=== PATIENT | female | born 1965 | race Caucasian/White ===

== ENCOUNTER 2020-01-11 14:51 | Outpatient (REF) | payer OTHER, SELFPAY ==
[2020-01-11 16:47] LABS: Hematocrit 41.3 % (37-47); Mean Corpuscular HGB Conc 31.5 g/dl (31.0-35.0); Mean Corpuscular Hemoglobin 32.7 pg (27.0-33.0); Mean Platelet Volume 10.3 fL (9.4-12.3); Platelet Count 251 X10*3/uL (160-400); Red Blood Count 3.97 X10*6/uL (4.20-5.50); White Blood Count 5.6 X10*3/uL (4.8-10.8)
[2020-01-11 17:09] LABS: Alanine Aminotransferase 46 U/L (0-31); Albumin Level 4.3 g/dL (3.5-5.0); Alkaline Phosphatase 98 U/L (39-117); Anion Gap 14 (12-20); Aspartate Amino Transferase 43 U/L (5-31); Bilirubin Total 0.5 mg/dL (0.0-1.0); Blood Urea Nitrogen 18 mg/dL (9-16); Calcium 8.6 mg/dL (8.4-10.2); Carbon Dioxide 24 mmol/L (22-29); Chloride 108 mmol/L (96-108); Cholesterol 181 mg/dL; Estimated Glomerular Filt Rate > 60; Glucose Fasting 77 mg/dL (60-99); HDL Cholesterol 77 mg/dL; LDL Cholesterol Calculated 90 mg/dl; Potassium 4.3 mmol/l (3.3-5.1); Sodium 142 mmol/L (135-145); Total Protein 7.1 g/dL (6.5-8.0); Triglycerides 72 mg/dL
[2020-01-11 17:30] LABS: Vitamin D 25-OH Total 36.6 ng/mL (>30)
[2020-01-11 17:42] LABS: Folate 19.3 ng/mL (> or = 4.0); Vitamin B12 375 pg/mL (200-900)
== END 2020-01-11 14:52 | disposition home or self-care (01) ==
LOC: HO.HMGCLDS 14:51
PROVIDERS: PCP Internal Medicine; Visit Provider Internal Medicine
DX: E53.8 Deficiency of other specified B group vitamins (principal); E55.9 Vitamin D deficiency, unspecified; I10 Essential (primary) hypertension; K21.9 Gastro-esophageal reflux disease without esophagitis
CPT/HCPCS: 36415; 80053; 80061; 82306; 82607; 82746; 85027

== ENCOUNTER 2020-03-01 09:49 | Outpatient (REF) | payer OTHER, SELFPAY ==
[2020-03-01 11:49] LABS: Anion Gap 13 (12-20); Blood Urea Nitrogen 16 mg/dL (9-16); Calcium 9.2 mg/dL (8.4-10.2); Carbon Dioxide 26 mmol/L (22-29); Chloride 111 mmol/L (96-108); Estimated Glomerular Filt Rate > 60; Glucose Random 73 mg/dL (60-115); Potassium 4.5 mmol/l (3.3-5.1); Sodium 145 mmol/L (135-145)
== END 2020-03-01 09:50 | disposition home or self-care (01) ==
LOC: HO.HMGCLDS 09:49
PROVIDERS: PCP Internal Medicine; Visit Provider Nurse Practitioner Family
DX: R10.9 Unspecified abdominal pain (principal)
CPT/HCPCS: 36415; 80048

== ENCOUNTER → 2020-03-07 14:21 | Outpatient (BNVA) | payer OTHER, SELFPAY | PROVIDERS: PCP Internal Medicine; Visit Provider Internal Medicine | DX: J45.909 Unspecified asthma, uncomplicated (principal); Z87.891 Personal history of nicotine dependence | CPT/HCPCS: 99212 ==

== ENCOUNTER 2020-03-08 09:28 | Outpatient (REF) | payer OTHER, SELFPAY ==
--- NOTE | 2020-03-08 09:30 | CT_ITS ---
EXAMINATION: CT ABDOMEN WITH CONTRAST CLINICAL INFORMATION: Abdominal pain COMPARISON: CT abdomen and pelvis 11/01/2015 TECHNIQUE: Contiguous axial thin section helical images of the abdomen were performed following the administration of oral contrast and 85 mL of Omnipaque 350 intravenous contrast. The data set was reformatted in the coronal and sagittal planes and reviewed on an independent workstation. This CT examination was performed using dose optimization techniques as appropriate, variously including the following: *Automated exposure control *Adjustment of mA and/or kV according to patient size (this includes techniques or standardized protocols for targeted exams where dose is matched to indication/reason for exam; i.e. extremities or head) *Use of iterative reconstruction technique DLP: 286 mGy-cm FINDINGS: LUNG BASES: The lung bases are clear. The heart size is normal. LIVER, GALLBLADDER, AND BILIARY TREE: The liver is normal size, shape and density. No focal lesion or intrahepatic ductal dilatation seen. PANCREAS: The pancreas is homogeneous in density and normal size. SPLEEN: The spleen is normal size and density. A small accessory splenule is seen posterior to the hilum. ADRENAL GLANDS AND KIDNEYS: Bilateral adrenal glands are symmetrical and normal. Both kidney nephrograms are normal size and shape. There is a focal cortical thinning at the junction of mid and lower poles of right kidney. There are no radiopaque renal calculi or hydronephrosis seen. There is a 1.1 cm cyst, upper pole right kidney BOWEL LOOPS: There is scattered moderate stool and gas seen throughout the colon without significant distention. The small bowel loops are normal caliber. The stomach is nondistended and appears unremarkable. The appendix is not included in the [id number]. LYMPH NODES: Normal. VASCULAR: Unremarkable. BONES: There is no lytic or sclerotic process seen. Mild ventral spondylosis seen in the lower dorsal spine. CT/CT abdomen w con IMPRESSION: 1. No acute process seen. 2. No radiopaque urolith or hydronephrosis. There is right mid to lower pole lateral cortex cortical thinning from previous insults. It is unchanged to 11/01/2015. 3. Moderate constipation.
[2020-03-08] MEDS: iohexoL 350 MG/ML 100 ML INFUS..BTL IV (10:23)
== END 2020-03-08 09:29 | disposition home or self-care (01) ==
LOC: HO.CT 09:28
PROVIDERS: Visit Provider Hospitalist
DX: R10.9 Unspecified abdominal pain (principal)
CPT/HCPCS: 74160; Q9967

== ENCOUNTER 2020-05-24 08:32 | Outpatient (REF) | payer OTHER, SELFPAY ==
--- NOTE | ~2020-05-24 | XR_ITS ---
EXAMINATION: XR SHOULDER, LEFT CLINICAL INFORMATION: Pain COMPARISON: None TECHNIQUE: Three views of the left shoulder. FINDINGS: Bone alignment is normal. No acute fracture or dislocation is seen. The glenohumeral joint is normal. There is mild arthritis at the acromioclavicular joint. There is an old left third rib fracture. XR/XR shoulder LT min 2V IMPRESSION: Mild arthritis at the acromioclavicular joint.
== END 2020-05-24 08:33 | disposition home or self-care (01) ==
LOC: HO.HOSX 08:32
PROVIDERS: Visit Provider Orthopaedic Surgery
DX: M75.42 Impingement syndrome of left shoulder (principal)
CPT/HCPCS: 20610; 73030; 99202; J1040

== ENCOUNTER 2020-06-07 07:56 | Outpatient (REF) | payer OTHER, SELFPAY | END 2020-06-07 07:57 | disposition home or self-care (01) | LOC: HO.HOSX 07:56 | PROVIDERS: Visit Provider Orthopaedic Surgery | DX: Z13.89 Encounter for screening for other disorder (principal) ==

== ENCOUNTER 2020-06-14 07:53 | Outpatient (REF) | payer OTHER, SELFPAY ==
--- NOTE | ~2020-06-14 | XR_ITS ---
EXAMINATION: XR HIP, RIGHT CLINICAL INFORMATION: Pain right hip. COMPARISON: Right hip 05/05/2018. TECHNIQUE: 2 views of the right hip. AP pelvis 1 view. FINDINGS: AP Pelvis: There is mild reduction in bilateral hip joint space. The SI joints are symmetrical. No visible fracture or bony abnormality seen. No soft tissue abnormality seen. Right Hip: There is no visible acute fracture, dislocation or joint effusion. There is mild reduction right hip joint space. The soft tissues are normal. XR/XR hip RT w PEL1V IMPRESSION: Minimal reduction in bilateral hip joint space without any bony erosive changes. Especially in right hip joint, there is no acute fracture, bony erosive changes or loose bodies. The SI joints are symmetrical and normal.
== END 2020-06-14 07:54 | disposition home or self-care (01) ==
LOC: HO.HOSX 07:53
PROVIDERS: Visit Provider Orthopaedic Surgery
DX: M25.561 Pain in right knee (principal)
CPT/HCPCS: 73502; 99202

== ENCOUNTER → 2020-07-13 15:57 | Outpatient (BNVA) | payer OTHER, SELFPAY | PROVIDERS: PCP Internal Medicine; Visit Provider Nurse Practitioner Family | DX: M47.816 Spondylosis without myelopathy or radiculopathy, lumbar region (principal); M54.2 Cervicalgia; M53.3 Sacrococcygeal disorders, not elsewhere classified | CPT/HCPCS: 99202 ==

== ENCOUNTER → 2020-08-02 10:51 | Outpatient (BNVA) | payer OTHER, SELFPAY | PROVIDERS: Visit Provider Nurse Practitioner Family | DX: M47.816 Spondylosis without myelopathy or radiculopathy, lumbar region (principal); M54.2 Cervicalgia; M53.3 Sacrococcygeal disorders, not elsewhere classified | CPT/HCPCS: 99212 ==

== ENCOUNTER 2020-10-03 13:00 | Outpatient (RCR) | payer OTHER, SELFPAY ==
[2020-08-12 14:22] VITALS: BP 119/74
--- NOTE | 2020-08-12 15:27 | MHC.PT.EP ---
[facility] [place] [facility] [place] [facility] [place] [facility] [address] [place] [address] [phone] F: [phone] F: [phone] F: [phone] F: [phone] Physical Therapy Plan of Care Date of Evaluation: Date of Surgery: N/A Diagnosis: Lumbar spondylosis without myelopathy or radiculopathy Assessment: Annie is a 54 y.o. female referred to PT for lumbar spondylosis without myelopathy or radiculopathy . On PT examination she presents with 4/10 pain, TTP L2-L4 spinous processes, decreased lumbar ROM, decreased TrA activation, decreased hip strength B, decreased knee strength B, gait deviation, and postural abnormalities. She would benefit from skilled PT for the aforementioned impairments to improve her tolerance for ADLs and work-related tasks such as standing for long periods of time, walking, stair negotiation, and impaired activity tolerance. She has a fair rehabilitation potential due to her apparent lack of motivation for PT and past medical history. Frequency and Duration: The patient will be seen 2x week for 3 weeks Short Term Goals: 1. In 2 weeks patient will report increased lumbar ROM in all planes to improve her ability for dressing and self care. Structures Mechanic Goals: 1. In 3 weeks patient will report less than 2-3/10 pain with standing for greater than 30 minutes to improve her ability to return to work. 2. In 3 weeks patient will be independent with [facility] for symptom management following d/c. Treatment Plan: Modalities to reduce pain, spasms and effusion. Manual therapy to restore motion and function. Therapeutic exercise to improve strength and flexibility. Neuromuscular re-education for posture and balance. Therapeutic activities to return to functional activities of daily living. Electronically signed by: Maria Dolores Aguilar PT, DPT Please sign and return to therapist. Thank you for your referral.
--- NOTE | 2020-11-08 11:43 | MHC.PT.DC ---
[facility] [place] Office [place] [facility] [place] [facility] [address] [place] [address] [facility] [phone] F: [phone] F: [phone] F: [phone] F: [phone] Physical Therapy Discharge Report Diagnosis: Lumbar spondylosis without myelopathy or radiculopathy Date of Surgery: N/A Date of Evaluation: 08/12/20 Date of Discharge: 11/08/20 Treatments to Date: 4 Cancellations to Date: 5 No Shows to Date: 0 Discharge Status: Visit Non-compliance Discharge Summary: Pt did not f/u with further visits and is d/c secondary to visit noncompliance. Electronically signed by: Tabatha Dobbs PT Please sign and return to therapist. Thank you for your referral.
== END 2020-11-08 11:43 | disposition home or self-care (01) ==
LOC: HO.PTCHIC 13:00
PROVIDERS: Visit Provider Anesthesiology
DX: M47.816 Spondylosis without myelopathy or radiculopathy, lumbar region (principal)
CPT/HCPCS: 97110; 97161

== ENCOUNTER 2021-01-30 10:06 | Outpatient (REF) | payer OTHER, SELFPAY ==
[2021-01-30 11:40] LABS: Hematocrit 45.9 % (37.0-47.0); Hemoglobin 14.8 g/dl (12.0-16.0); Mean Corpuscular HGB Conc 32.2 g/dl (31.0-35.0); Mean Corpuscular Hemoglobin 32.9 pg (27.0-33.0); Mean Platelet Volume 10.4 fL (9.4-12.3); Platelet Count 260 X10*3/uL (160-400); Red Cell Distribution Width 12.1 % (11.0-16.0); White Blood Count 7.2 X10*3/uL (4.8-10.8)
[2021-01-30 12:12] LABS: Alanine Aminotransferase 12 U/L (0-31); Albumin Level 3.9 g/dL (3.5-5.0); Alkaline Phosphatase 111 U/L (39-117); Anion Gap 9 (12-20); Aspartate Amino Transferase 14 U/L (5-31); Bilirubin Total 0.4 mg/dL (0.0-1.0); Blood Urea Nitrogen 12 mg/dL (9-16); Calcium 9.4 mg/dL (8.4-10.2); Carbon Dioxide 27 mmol/L (22-29); Chloride 110 mmol/L (96-108); Estimated Glomerular Filt Rate > 60; Glucose Fasting 105 mg/dL (60-99); Potassium 4.3 mmol/L (3.3-5.1); Sodium 142 mmol/L (135-145)
== END 2021-01-30 10:07 | disposition home or self-care (01) ==
LOC: HO.HMGCLDS 10:06
PROVIDERS: PCP Internal Medicine; Visit Provider Internal Medicine
DX: E53.8 Deficiency of other specified B group vitamins (principal); I10 Essential (primary) hypertension
CPT/HCPCS: 36415; 80053; 85027

== ENCOUNTER → 2021-06-01 14:14 | Outpatient (BNVA) | payer OTHER, SELFPAY | PROVIDERS: PCP Internal Medicine; Visit Provider Internal Medicine | DX: J45.21 Mild intermittent asthma with (acute) exacerbation (principal); J30.9 Allergic rhinitis, unspecified; F41.9 Anxiety disorder, unspecified; F32.A Depression, unspecified; F10.10 Alcohol abuse, uncomplicated | CPT/HCPCS: 94010; 99212 ==

== ENCOUNTER 2021-07-14 15:41 | Emergency (ER) | payer OTHER, SELFPAY ==
[2021-07-14 15:47] VITALS: BP 167/90; PULSE 99; RESP 20; TEMP 36.1; O2SAT 96; BMI 33.3
[2021-07-14] MEDS: oxyCODONE HCl Immed Release 5 MG TABLET PO (17:46)
[2021-07-14] MEDS: Diphth,Pertus(ACell),Tet Adult 0.5 ML SYRINGE IM (17:46)
--- NOTE | 2021-07-14 18:38 | ED.SKABFB ---
HPI - Skin/Abscess/Foreign Bdy General Chief complaint: Skin/Abscess/Foreign Body <RAYNA Mora - Last Filed: 07/14/21 18:48> Stated complaint: Burn on R hand/work inj <RAYNA Mora Last Filed: 07/14/21 18:48> Time Seen by Provider: 07/14/21 17:17 <RAYNA Mora Last Filed: 07/14/21 18:48> Source: patient <RAYNA Mora Last Filed: 07/14/21 18:48> Mode of arrival: ambulatory <RAYNA Mora Last Filed: 07/14/21 18:48> Limitations: no limitations <RAYNA Mora Last Filed: 07/14/21 18:48> History of Present Illness HPI narrative: 55-year-old female presents for noncircumferential burn to her left hand that occurred at work. Patient works at [employer] and was changing the coffee pot when she spilled scalding water over her left hand. <RAYNA Mora Last Filed: 07/14/21 18:48> Related Data Home medications: Home Medications Medication Instructions Recorded Confirmed clonazepam 1 mg tablet 1 mg PO TID 01/11/20 02/21/21 gabapentin 400 mg capsule 400 mg PO BID 01/11/20 02/21/21 diphth,pertus(acell),tetanus 2.5 ml IM ONCE 01/28/20 02/21/21 Lf unit-8 mcg-5 Lf/0.5mL IM syringe flu vacc [id number] 6mos up(PF) ml IM 01/28/20 02/21/21 fluticasone propionate 50 1 spray INTRANASAL DAILY 01/28/20 02/21/21 mcg/actuation nasal spray,suspension naltrexone 50 mg tablet 50 mg PO DAILY 06/01/21 Previous Rx's Medication Instructions Recorded cholecalciferol (vitamin D3) 50 50 mcg PO DAILY #90 cap 10/11/20 mcg (2,000 unit) capsule loratadine 10 mg tablet 10 mg PO DAILY #90 tab 10/11/20 umeclidinium 62.5 mcg/actuation 1 inh INHALATION DAILY #90 ea 10/11/20 blister powder for inhalation (Incruse Ellipta) amlodipine 5 mg tablet 5 mg PO DAILY #90 tab 01/30/21 baclofen 10 mg tablet 10 mg PO BEDTIME #30 tab 04/21/21 multivitamin 1 tab PO DAILY #100 tab 05/08/21 pantoprazole 40 mg tablet,delayed 40 mg PO DAILY #90 tab 05/08/21 release nicotine 21 mg/24 hr daily 1 patch TRANSDERMAL DAILY #28 ea 05/14/21 transdermal patch azithromycin 250 mg tablet See Rx Instructions PO .COMPLEX #6 06/01/21 tab montelukast 10 mg tablet 10 mg PO DAILY 30 Days #30 tab 06/01/21 meloxicam 15 mg tablet 15 mg PO DAILY #30 tab 06/02/21 albuterol sulfate 90 mcg/actuation 2 puff INHALATION Q6H PRN #8.5 ea 06/12/21 aerosol inhaler oxycodone 5 mg capsule 5 mg PO Q6H PRN #20 cap 07/14/21 <RAYNA Mora Last Filed: 07/14/21 18:48> Allergies/Adverse reactions: Allergies Allergy/AdvReac Type Severity Reaction Status Date / Time lamotrigine [From LAMICTAL] Allergy Severe RASH Verified 06/01/21 14:47 sumatriptan [From IMITREX] Allergy Intermediate RASH Verified 06/01/21 14:47 <RAYNA Mora Last Filed: 07/14/21 18:48> Review of Systems Constitutional: Constitutional: Denies body ache(s), Denies chills, Denies fatigue and Denies fever(s) <RAYNA Mora Last Filed: 07/14/21 18:48> Eyes: Eyes: Denies blurry vision <RAYNA Mora Last Filed: 07/14/21 18:48> ENT: Denies dizziness <RAYNA Mora Last Filed: 07/14/21 18:48> Cardiovascular: Cardiovascular: Denies chest pain and Denies dyspnea <RAYNA Mora Last Filed: 07/14/21 18:48> Respiratory: Respiratory: Denies chest congestion, Denies cough and Denies dyspnea <RAYNA Mora Last Filed: 07/14/21 18:48> Gastrointestinal: Gastrointestinal: Denies abdominal pain, Denies constipation, Denies diarrhea, Denies nausea and Denies vomiting <RAYNA Mora - Last Filed: 07/14/21 18:48> Musculoskeletal: Musculoskeletal: Denies deformity, Denies muscle weakness, Denies numbness, Denies stiffness and Denies tingling <RAYNA Mora - Last Filed: 07/14/21 18:48> Integumentary/Breasts: Skin/Breast: Reports wounds <RAYNA Mora - Last Filed: 07/14/21 18:48> Comments: Noncircumferential burn to left hand <RAYNA Mora - Last Filed: 07/14/21 18:48> Neurologic: Denies dizziness, Denies numbness and Denies tingling <RAYNA Mora - Last Filed: 07/14/21 18:48> Endocrine: Endocrine: Denies fatigue <RAYNA Mora - Last Filed: 07/14/21 18:48> PMF Past Medical History Medical History: Medical History Allergic rhinitis Anxiety and depression Asthma Cataract COPD (chronic obstructive pulmonary disease) ETOH abuse Ex-smoker GERD (gastroesophageal reflux disease) HTN (hypertension) Migraine Musculoskeletal pain SUNSHINE on CPAP Shoulder pain, left Vitamin B12 deficiency Vitamin D insufficiency <RAYNA Mora - Last Filed: 07/14/21 18:48> Surgical History: Surgical History H/O colonoscopy History of esophagogastroduodenoscopy (EGD) History of total hysterectomy S/P PRINCESS (total abdominal hysterectomy) <RAYNA Mora - Last Filed: 07/14/21 18:48> Family History Family History: Family History Father Alcoholic Mother Diabetes mellitus HTN (hypertension) Brother No problems noted. Brother No problems noted. Daughter No problems noted. 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 <RAYNA Mora Last Filed: 07/14/21 18:48> Physical Exam Vital Signs: Vital Signs: Last Vital Signs Temp 97.0 F 07/14/21 15:47 Pulse 99 07/14/21 15:47 Resp 20 07/14/21 15:47 BP 167/90 H 07/14/21 15:47 Pulse Ox 96 07/14/21 15:47 BMI result Body Mass Index 33.3 <RAYNA Mora Last Filed: 07/14/21 18:48> Vital Signs: Last Vital Signs Temp 97.0 F 07/14/21 15:47 Pulse 99 07/14/21 15:47 Resp 20 07/14/21 15:47 BP 167/90 H 07/14/21 15:47 Pulse Ox 96 07/14/21 15:47 BMI result Body Mass Index 33.3 <RAYNA Garcia - Last Filed: 07/14/21 19:56> Const: General: cooperative, no acute distress, well developed, alert and awake <RAYNA Mora Last Filed: 07/14/21 18:48> Nutritional Appearance: well nourished <RAYNA Mora Last Filed: 07/14/21 18:48> Orientation/consciousness: patient oriented x3 <RAYNA Mora Last Filed: 07/14/21 18:48> Limitations: no limitations <RAYNA Mora Last Filed: 07/14/21 18:48> HEENT: Head: Yes normal to inspection, Yes normocephalic and Yes atraumatic <RAYNA Mora Last Filed: 07/14/21 18:48> Ears: hearing grossly normal bilaterally, external ears normal, TM's normal bilaterally and EAC's normal <RAYNA Mora Last Filed: 07/14/21 18:48> General nose exam: Normal external nose present <Tabatha Saunders [facility] Last Filed: 07/14/21 18:48> Face and sinus: Yes normal facial exam and Yes sinuses nontender <Tabatha Saunders [facility] Last Filed: 07/14/21 18:48> Mouth: Normal oral and palatal mucosa present <Tabatha Saunders [facility] Last Filed: 07/14/21 18:48> Throat: Yes posterior oropharynx normal <Tabatha Saunders [facility] Last Filed: 07/14/21 18:48> Eyes: Conjunctivae: conjunctivae normal <Tabatha Saunders [facility] Last Filed: 07/14/21 18:48> Pupils: Equal, round and reactive pupils present <Tabatha Saunders [facility] Last Filed: 07/14/21 18:48> EOM: EOMs intact bilaterally <Tabatha Saunders [facility] Last Filed: 07/14/21 18:48> Neck: Neck: Yes full ROM, Yes no lymphadenopathy and Yes supple <Tabatha Saunders [facility] Last Filed: 07/14/21 18:48> Resp: Effort & Inspection: normal respiratory effort and able to speak in complete sentences <Tabatha Saunders [facility] Last Filed: 07/14/21 18:48> Auscultation: clear to auscultation bilaterally, no crackles, no rales, no rhonchi and no wheezes <Tabatha Saunders [facility] Last Filed: 07/14/21 18:48> Cardio: Rate: regular rate <Tabatha Saunders [facility] Last Filed: 07/14/21 18:48> Rhythm: regular rhythm <Tabatha Saunders [facility] Last Filed: 07/14/21 18:48> Heart sounds: S1 normal heart sound present and S2 normal heart sound present <Tabatha Saunders [facility] Last Filed: 07/14/21 18:48> GI: Inspection: Yes normal to inspection <RAYNA Mora Last Filed: 07/14/21 18:48> Palpation (GI): Soft to palpation, nontender, no guarding and not rigid <Tabatha Saunders [facility] Last Filed: 07/14/21 18:48> Percussion: Yes normal to percussion <Tabatha Saunders [facility] Last Filed: 07/14/21 18:48> Auscultation: normal bowel sounds <RAYNA Mora Last Filed: 07/14/21 18:48> Skin: Other: noncircumferential superficial partial-thickness burn to dorsum of left hand and webspace between left thumb and left forefinger. Also noted burn to dorsum of left ring finger. None of these are circumferential, all laurie <RAYNA Mora Last Filed: 07/14/21 18:48> Wounds: wounds noted <RAYNA Mora Last Filed: 07/14/21 18:48> Neuro: General: patient oriented x3, tone normal and moves all extremities <RAYNA Mora Last Filed: 07/14/21 18:48> Cranial nerves: Yes Equal, round and reactive pupils present <RAYNA Mora Last Filed: 07/14/21 18:48> Extrem: General: Yes normal to inspection and Yes full ROM <RAYNA Mora Last Filed: 07/14/21 18:48> Psych: Appearance: grossly normal <RAYNA Mora Last Filed: 07/14/21 18:48> Affect: normal affect <RAYNA Mora Last Filed: 07/14/21 18:48> Attitude: cooperative <RAYNA Mora Last Filed: 07/14/21 18:48> Thought process: Normal thought process present <RAYNA Mora Last Filed: 07/14/21 18:48> Course Course Course Narrative: 55-year-old female who sustained a burn to her left hand at work. Patient has a noncircumferential superficial partial-thickness burn on the dorsum of her left hand with a blister, also superficial burn to web space between left index finger and thumb, and the dorsum of left ring finger. All of the red areas laurie. Burn was cleaned with saline, topical bacitracin was applied, Xeroform was applied, fluffy gauze dressing was applied, wrapped with Kerlix. Patient was given tetanus vaccination and oxycodone. Patient was advised to return to the emergency room to recheck her burn tomorrow. Because this is her hand, patient requires referral to a burn center. I referred her to [facility] burn center, I provided her the phone number, and told her she must be seen by the end of the week next week. We discussed that hands can get contractures and reduced mobility if they are not followed up properly when they have howard. Patient verbalized agreement and understanding of the plan. <RAYNA Mora - Last Filed: 07/14/21 18:48> Reevaluation(s) Reevaluation #1: [facility] called for clarification on this prescription, it looks like patient is currently taking naltrexone therefore oxycodone should not be given. Advise pharmacy to tell patient she can take ibuprofen every 6 hours, Tylenol every 4 as needed for pain or discomfort. <RAYNA Garcia - Last Filed: 07/14/21 19:56> Time: 19:56 <RAYNA Garcia - Last Filed: 07/14/21 19:56> Discharge Plan Discharge Clinical Impression: Burn of hand, left <RAYNA Mora Last Filed: 07/14/21 18:48> Patient Disposition: Home, Self-Care <RAYNA Mora Last Filed: 07/14/21 18:48> Instructions: Flash Burn of Skin (ED) <RAYNA Mora Last Filed: 07/14/21 18:48> Additional Instructions: please call [facility] at the following number on Saturday: [phone] this is a burn center. Please tell them that you have been referred from [facility] and you need to be seen before the end of the week for a burn on your left hand. In addition, please return to the emergency room tomorrow for recheck of your burn. I have prescribed oxycodone for pain. <RAYNA Mora Last Filed: 07/14/21 18:48> Prescriptions: New oxycodone 5 mg capsule 5 mg PO Q6H PRN (Reason: pain) Qty: 20 0RF No Action Incruse Ellipta 62.5 mcg/actuation blister with device 1 inh inhalation DAILY Qty: 90 6RF loratadine 10 mg tablet 10 mg PO DAILY Qty: 90 3RF cholecalciferol (vitamin D3) 50 mcg (2,000 unit) capsule 50 mcg PO DAILY Qty: 90 3RF baclofen 10 mg tablet 10 mg PO BEDTIME Qty: 30 1RF pantoprazole 40 mg tablet,delayed release (DR/EC) 40 mg PO DAILY Qty: 90 3RF multivitamin Tablet 1 tab PO DAILY Qty: 100 3RF nicotine 21 mg/24 hr patch 24 hour 1 patch transdermal DAILY Qty: 28 5RF meloxicam 15 mg tablet 15 mg PO DAILY Qty: 30 2RF albuterol sulfate 90 mcg/actuation HFA aerosol inhaler 2 puff inhalation Q6H PRN (Reason: for wheezing) Qty: 8.5 3RF Fluzone Quad [id number] (PF) 60 mcg (15 mcg x 4)/0.5 mL syringe IM 0RF fluticasone propionate 50 mcg/actuation spray,suspension 1 spray intranasal DAILY 0RF Boostrix Tdap 2.5-8-5 Lf-mcg-Lf/0.5mL syringe IM ONCE 0RF clonazepam 1 mg tablet 1 mg PO TID 0RF gabapentin 400 mg capsule 400 mg PO BID 0RF amlodipine 5 mg tablet 5 mg PO DAILY Qty: 90 3RF naltrexone 50 mg tablet 50 mg PO DAILY 0RF azithromycin 250 mg tablet See Rx Instructions PO .COMPLEX Qty: 6 0RF Rx Instructions: For 250 mg dose pack: take 500 mg today (day 1), then 250 mg for 4 days (days 2-5) PO montelukast 10 mg tablet 10 mg PO DAILY 30 Days Qty: 30 2RF <RAYNA Mora - Last Filed: 07/14/21 18:48> Referrals: [facility] [Provider Group] (hand burn follow up before July 21) [facility] [Outside] <RAYNA Mora - Last Filed: 07/14/21 18:48> Stand Alone Forms: Work/School Release <RAYNA Mora - Last Filed: 07/14/21 18:48> Interventions: ED Discharge Assessment Last Done: 07/14/21 18:41 <RAYNA Mora - Last Filed: 07/14/21 18:48> Discharge Date/Time: 07/14/21 18:41 <RAYNA Mora - Last Filed: 07/14/21 18:48>
== END 2021-07-14 18:41 | disposition home or self-care (01) ==
PROVIDERS: Emergency Provider Internal Medicine; PCP Internal Medicine
DX: T23.262A Burn of second degree of back of left hand, initial encounter (principal); T23.162A Burn of first degree of back of left hand, initial encounter; I10 Essential (primary) hypertension; J44.9 Chronic obstructive pulmonary disease, unspecified; X12.XXXA Contact with other hot fluids, initial encounter; Y93.9 Activity, unspecified; Y92.511 Restaurant or cafe as the place of occurrence of the external cause; Y99.0 Civilian activity done for income or pay
CPT/HCPCS: 16000; 90471; 90715; 99283; 99284

== ENCOUNTER 2021-07-16 09:32 | Emergency (ER) | payer OTHER, SELFPAY ==
[2021-07-16 09:37] VITALS: BP 140/92; PULSE 77; RESP 18; TEMP 35.7; O2SAT 95; BMI 33.3
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
[2021-07-16 10:18] VITALS: TEMP 37.3
== END 2021-07-16 10:40 | disposition home or self-care (01) ==
PROVIDERS: Emergency Provider Student in an Organized Health Care Education/Training Program; PCP Internal Medicine
DX: T23.262D Burn of second degree of back of left hand, subsequent encounter (principal); T31.0 Burns involving less than 10% of body surface
CPT/HCPCS: 99283

== ENCOUNTER 2021-07-21 09:02 | Outpatient (RCR) | payer OTHER, SELFPAY | END 2021-08-04 10:45 | disposition home or self-care (01) | LOC: HO.WCC 09:02 | PROVIDERS: PCP Internal Medicine; Visit Provider Physician Assistant | DX: T23.262D Burn of second degree of back of left hand, subsequent encounter (principal); T31.0 Burns involving less than 10% of body surface | CPT/HCPCS: 99212; 99213 ==

== ENCOUNTER 2021-08-11 10:24 | Outpatient (REF) | payer OTHER, SELFPAY ==
--- NOTE | ~2021-08-11 | XR_ITS ---
EXAMINATION: XR WRIST, LEFT CLINICAL INFORMATION: Pain COMPARISON: None TECHNIQUE: Left wrist is imaged in 4 views. FINDINGS: There are mild osteoarthritic changes 1st carpometacarpal joint. No erosive change. There is no fracture, dislocation, or destructive process. Ulnar variance is neutral. Pronator quadratus fat pad is normal. No chondrocalcinosis. XR/XR wrist LT 2V IMPRESSION: Mild osteoarthritis 1st carpometacarpal joint.
--- NOTE | ~2021-08-11 | XR_ITS ---
EXAMINATION: XR SHOULDER, LEFT CLINICAL INFORMATION: Left shoulder pain. COMPARISON: Radiographs left shoulder 05/24/2020. TECHNIQUE: Left shoulder is imaged in 5 views. FINDINGS: No fracture, dislocation, or destructive process. The glenohumeral joint appears normal. The acromioclavicular alignment is normal. No gross arthropathy. No visible rotator cuff calcifications. XR/XR shoulder LT min 2V IMPRESSION: Unremarkable left shoulder.
== END 2021-08-11 10:25 | disposition home or self-care (01) ==
LOC: HO.XRAY 10:24
PROVIDERS: PCP Internal Medicine; Visit Provider Internal Medicine
DX: M25.512 Pain in left shoulder (principal); M25.532 Pain in left wrist
CPT/HCPCS: 73030; 73100

== ENCOUNTER 2021-08-22 10:21 | Emergency (ER) | payer OTHER, SELFPAY ==
--- NOTE | ~2021-08-22 | CT_ITS ---
EXAMINATION: CT ANGIOGRAM OF THE CHEST WITH AND WITHOUT CONTRAST (CT PULMONARY ANGIOGRAM FOR PE) CLINICAL INFORMATION: Reason for Exam l sided pain ?pe COMPARISON: None TECHNIQUE: Prior to contrast administration, noncontrast localization images were obtained. Subsequently, multidetector volumetric imaging was performed from the thoracic inlet to below the diaphragms following the administration of 70 mL Omnipaque 350 intravenous contrast. No contrast reaction reported Sagittal, coronal, and MIP oblique sagittal reformatted images were obtained on the CT workstation, uploaded to PACS, and reviewed. This CT examination was performed using dose optimization techniques as appropriate, variously including the following: *Automated exposure control *Adjustment of mA and/or kV according to patient size (this includes techniques or standardized protocols for targeted exams where dose is matched to indication/reason for exam; i.e. extremities or head) *Use of iterative reconstruction technique Total exam dose-length product 321 mGy-cm FINDINGS: QUALITY OF STUDY/CONTRAST BOLUS: Satisfactory. PULMONARY ARTERIES: No central or segmental pulmonary emboli. THORACIC AORTA: No aneurysm or dissection. LUNG: Small irregular shaped right middle lobe perifissural nodule compatible with an intrapulmonary lymph node measuring approximately 4 mm in size. Mild volume loss and partial collapse of the right lower lobe with air bronchograms and numerous small ill-defined centrilobular nodules. There is truncation of the right lower lobar bronchus by mucus or a small endobronchial mass. An adjacent enlarged interlobar lymph node measures 1 cm in short axis on series 603 image 279. Central airways are otherwise clear. PLEURA: No pleural effusion or pneumothorax. MEDIASTINUM: No cardiomegaly or pericardial effusion. Borderline enlarged subcarinal lymph node measuring 1 cm in short axis. No other lymphadenopathy. No evidence of septal bowing or right heart strain. CHEST WALL/AXILLA: No axillary or internal mammary lymphadenopathy. OSSEOUS STRUCTURES: No acute or suspicious osseous abnormality. Mild multilevel degenerative disc disease in the lower thoracic spine. UPPER ABDOMEN: Unremarkable. No reflux of contrast into the hepatic veins to suggest elevated right heart pressures. CT/CT angio chest PE protocol IMPRESSION: 1. No evidence pulmonary embolus. 2. Partial collapse of the right lower lobe and focal occlusion of distal right lower lobar bronchus by either mucoid material or alternatively a small endobronchial mass. Consider pulmonary consultation. 3. Small centrilobular nodules in the right lower lobe. Findings suggest superimposed right lower lobe pneumonia. 4. Enlarged right interlobar lymph node borderline enlarged subcarinal lymph nodes, which may be reactive or neoplastic. VTE: negative
--- NOTE | ~2021-08-22 | XR_ITS ---
EXAMINATION: XR CHEST CLINICAL INFORMATION: Cough. COMPARISON: Chest 03/24/2019 TECHNIQUE: 2 views of the chest were obtained. FINDINGS: The lungs are well-expanded with patchy opacity right lung base likely atelectasis or scarring. Rest of the lungs are clear. The heart size and pulmonary vascularity is normal. No gross bony abnormality seen. XR/XR chest 2V IMPRESSION: Patchy opacity right lung base question infiltrate/atelectasis.
[2021-08-22 10:34] VITALS: BP 128/86; PULSE 117; RESP 20; TEMP 37.4; O2SAT 92; BMI 32.4
[2021-08-22 12:33] LABS: MANUAL DIFF FLAG NO
[2021-08-22 12:37] LABS: Appearance Urine CLEAR; Color Urine YELLOW; Glucose Urine UA NEG (NEG); Leukocyte Esterase Urine NEG (NEG); Nitrite Urine NEG (NEG); Urine Blood NEG (NEG); Urine Ketones NEG (NEG); Urine Protein NEG (NEG-TRACE)
[2021-08-22 12:38] LABS: Basophils Absolute Auto 0.1 X10*3/uL (0.0-0.2); Basophils Percent Auto 0.5 % (0-2); Eosinophils Percent Auto 0.2 % (0-4); Hematocrit 45.8 % (37.0-47.0); Hemoglobin 14.6 g/dl (12.0-16.0); Imm Gran Abs Auto 0.05 X10*3/uL (0.00-0.03); Imm Gran Pct Auto 0.4 % (0.0-0.4); Lymphocytes Absolute Auto 0.9 X10*3/uL (1.2-4.9); Lymphocytes Percent Auto 6.7 % (20-40); Mean Corpuscular HGB Conc 31.9 g/dl (31.0-35.0); Mean Corpuscular Hemoglobin 31.5 pg (27.0-33.0); Mean Corpuscular Volume 98.9 fL (80.0-98.0); Mean Platelet Volume 9.8 fL (9.4-12.3); Monocytes Absolute Auto 0.6 X10*3/uL (0.1-1.2); Monocytes Percent Auto 4.4 % (2-11); Neutrophils Absolute Auto 11.5 x10*3/uL (2.0-8.3); Neutrophils Percent Auto 87.8 % (45-73); Platelet Count 296 X10*3/uL (160-400); Red Blood Count 4.63 X10*6/uL (4.20-5.50); Red Cell Distribution Width 12.8 % (11.0-16.0); White Blood Count 13.1 X10*3/uL (4.8-10.8)
[2021-08-22 12:48] LABS: Lactic Acid 1.6 mmol/L (0.5-2.0)
[2021-08-22 12:54] LABS: Alanine Aminotransferase 57 U/L (0-31); Albumin Level 4.2 g/dL (3.5-5.0); Alkaline Phosphatase 211 U/L (39-117); Anion Gap 14 (12-20); Aspartate Amino Transferase 25 U/L (5-31); Bilirubin Direct 0.2 mg/dL (0.0-0.5); Bilirubin Total 0.5 mg/dL (0.0-1.0); Blood Urea Nitrogen 10 mg/dL (9-16); COVID-19 Test Negative (Negative); Calcium 9.4 mg/dL (8.4-10.2); Carbon Dioxide 30 mmol/L (22-29); Chloride 100 mmol/L (96-108); Creatinine Clr Calc Pharmacy 69.5; Estimated Glomerular Filt Rate 58; Glucose Random 116 mg/dL (60-115); IDNOW Serial# 16C4AD1C; Influenza A Negative (Negative); Influenza B2 Negative (Negative); Lipase 22 U/L (8-78); Potassium 4.7 mmol/L (3.3-5.1); Sodium 139 mmol/L (135-145); Total Protein 7.4 g/dL (6.5-8.0)
--- NOTE | 2021-08-22 17:06 | ED.GENADULT ---
HPI - General Adult General Chief complaint: General Medical Stated complaint: Fever Cough Vomiting Time Seen by Provider: 08/22/21 17:06 Source: patient Mode of arrival: ambulatory Limitations: no limitations History of Present Illness HPI narrative: Patient with history of hypertension and COPD 5 days ago twisted her left upper back since yesterday been coughing and pain in the side with low-grade fever and feels slightly short winded, no leg pain or swelling no chest pain or palpitation patient been vaccinated against COVID including the booster dose Related Data Home Medications Medication Instructions Recorded Confirmed clonazepam 1 mg tablet 1 mg PO TID 01/11/20 08/11/21 gabapentin 400 mg capsule 400 mg PO BID 01/11/20 08/11/21 diphth,pertus(acell),tetanus 2.5 ml IM ONCE 01/28/20 08/11/21 Lf unit-8 mcg-5 Lf/0.5mL IM syringe flu vacc [id number] 6mos up(PF) ml IM 01/28/20 08/11/21 fluticasone propionate 50 1 spray intranasal DAILY 01/28/20 08/11/21 mcg/actuation nasal spray,suspension naltrexone 50 mg tablet 50 mg PO DAILY 06/01/21 08/11/21 clonidine HCl 0.1 mg tablet 0.1 mg PO BID 08/11/21 08/11/21 Previous Rx's Medication Instructions Recorded umeclidinium 62.5 mcg/actuation 1 inh inhalation DAILY #90 ea 10/11/20 blister powder for inhalation (Incruse Ellipta) amlodipine 5 mg tablet 5 mg PO DAILY #90 tabs 01/30/21 multivitamin 1 tab PO DAILY #100 tabs 05/08/21 pantoprazole 40 mg tablet,delayed 40 mg PO DAILY #90 tabs 05/08/21 release nicotine 21 mg/24 hr daily 1 patch transdermal DAILY #28 ea 05/14/21 transdermal patch montelukast 10 mg tablet 10 mg PO DAILY ALLRGIC RHINITIS 30 06/01/21 days #30 tabs meloxicam 15 mg tablet 15 mg PO DAILY #30 tabs 06/02/21 albuterol sulfate 90 mcg/actuation 2 puff inhalation Q6H PRN for 06/12/21 aerosol inhaler wheezing #8.5 ea ibuprofen 800 mg tablet 800 mg PO Q8H PRN pain #20 tabs 07/15/21 baclofen 10 mg tablet 10 mg PO BEDTIME #30 tabs 07/25/21 cholecalciferol (vitamin D3) 50 50 mcg PO DAILY #90 caps 07/25/21 mcg (2,000 unit) capsule loratadine 10 mg tablet 10 mg PO DAILY #90 tabs 07/25/21 folic acid 1 mg tablet 1 mg PO DAILY #90 tabs 08/11/21 prednisone 10 mg tablet See Rx Instructions PO DAILY #30 08/11/21 tabs thiamine HCl (vitamin B1) 100 mg 100 mg PO DAILY #90 tabs 08/11/21 tablet benzonatate 200 mg capsule 200 mg PO TID PRN cough #30 caps 08/22/21 cefuroxime axetil 500 mg tablet 500 mg PO BID #20 tabs 08/22/21 doxycycline hyclate 100 mg tablet 100 mg PO BID #20 tabs 08/22/21 tramadol 50 mg tablet 50 mg PO Q6H PRN pain #20 tabs 08/22/21 Allergies Allergy/AdvReac Type Severity Reaction Status Date / Time lamotrigine [From LAMICTAL] Allergy Severe RASH Verified 08/11/21 09:20 sumatriptan [From IMITREX] Allergy Intermediate RASH Verified 08/11/21 09:20 Review of Systems Review of Systems: Yes all other systems are reviewed and are negative PMF Past Medical History Medical History Allergic rhinitis Anxiety and depression Asthma Cataract COPD (chronic obstructive pulmonary disease) ETOH abuse Ex-smoker GERD (gastroesophageal reflux disease) HTN (hypertension) Migraine Musculoskeletal pain SUNSHINE on CPAP Shoulder pain, left Vitamin B12 deficiency Vitamin D insufficiency Surgical History H/O colonoscopy History of esophagogastroduodenoscopy (EGD) History of total hysterectomy S/P PRINCESS (total abdominal hysterectomy) Family History Family History Father Alcoholic Mother Diabetes mellitus HTN (hypertension) Brother No problems noted. Brother No problems noted. Daughter No problems noted. 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 Oriented X3. No acute distress. Eyes: PERRLA, No Nystagmus ENT: Pharynx normal. Oral Mucosa moist Neck: Normal inspection. Neck supple. CVS: Normal heart rate and rhythm. Pulses normal. Respiratory: No respiratory distress. Equal air entry bilateral, no wheezing/rales/rhonchi Abdomen: Soft and nontender. Bowel sounds are present, no mass palpable, no CVA tenderness Skin: Skin warm and dry. Normal skin color. Normal skin turgor. Extremities: No lower extremity edema. No calf tenderness Neuro: Oriented X 3. No motor deficit. No sensory deficit.No cerebellar signs , cranial nerves II-XII intact Course Reevaluation(s) Reevaluation #1: Patient with left-sided lower lung pain etiology not clear D-dimer is slightly positive patient has infiltrate in the right lower lobe unable to explain pain in the left side will get CTA chest to rule out PE Time: 19:28 Medical Decision Making [facility] Narrative Medical decision making narrative: Patient has left-sided pleuritic chest pain CTA chest negative for PE showed right lower lobe infiltrate patient advised to start take the medication doxycycline and Ceftin follow up with PCP if not better for further workup Lab Data Lab results reviewed: Yes I reviewed the patient's lab results. Result diagrams: 08/22/21 12:19 08/22/21 12:19 Labs: Lab Results 08/22/21 08/22/21 08/22/21 Range/Units 12:19 12:19 12:19 WBC 13.1 H (4.8-10.8) X10*3/uL RBC 4.63 (4.20-5.50) X10*6/uL Hgb 14.6 (12.0-16.0) g/dl Hct 45.8 (37.0-47.0) % MCV 98.9 H (80.0-98.0) fL MCH 31.5 (27.0-33.0) pg MCHC 31.9 (31.0-35.0) g/dl RDW 12.8 (11.0-16.0) % Plt Count 296 (160-400) X10*3/uL MPV 9.8 (9.4-12.3) fL Immature Gran % (Auto) 0.4 (0.0-0.4) % Neut % (Auto) 87.8 H (45-73) % Lymph % (Auto) 6.7 L (20-40) % [place] % (Auto) 4.4 (2-11) % Eos % (Auto) 0.2 (0-4) % Baso % (Auto) 0.5 (0-2) % Lymph # (Auto) 0.9 L (1.2-4.9) X10*3/uL [place] # (Auto) 0.6 (0.1-1.2) X10*3/uL Eos # (Auto) 0.0 (0.0-0.4) X10*3/uL Baso # (Auto) 0.1 (0.0-0.2) X10*3/uL Abs Immat Gran (auto) 0.05 H (0.00-0.03) X10*3/uL Absolute Neuts (auto) 11.5 H (2.0-8.3) x10*3/uL Absolute Nucleated RBC 0.000 (0.0-0.012) X10*3/uL Nucleated RBC % (auto) 0.0 (0.0-0.2) /100WBC D-Dimer High Sensitivty NG/ML Sodium 139 (135-145) mmol/L Potassium 4.7 (3.3-5.1) mmol/L Chloride 100 (96-108) mmol/L Carbon Dioxide 30 H (22-29) mmol/L Anion Gap 14 (12-20) BUN 10 (9-16) mg/dL Creatinine 0.98 (0.5-1.4) mg/dL Estim Creat Clear Calc 69.5 Estimated GFR 58 Random Glucose 116 H (60-115) mg/dL Lactic Acid (0.5-2.0) mmol/L Calcium 9.4 (8.4-10.2) mg/dL Total Bilirubin 0.5 (0.0-1.0) mg/dL Direct Bilirubin 0.2 (0.0-0.5) mg/dL AST 25 D (5-31) U/L ALT 57 H (0-31) U/L Alkaline Phosphatase 211 H D (39-117) U/L Total Protein 7.4 (6.5-8.0) g/dL Albumin 4.2 (3.5-5.0) g/dL Lipase 22 (8-78) U/L Urine Color Urine Appearance Urine pH (5.0-8.0) Ur Specific Sherrill (1.005-1.025) Urine Protein (NEG-TRACE) MG/DL Urine Glucose (UA) (NEG) MG/DL Urine Ketones (NEG) MG/DL Urine Blood (NEG) Urine Nitrite (NEG) Ur Leukocyte Esterase (NEG) COVID-19 ([facility]) (Negative) COVID-19 Clin Com Influenza Type A (KG) Negative (Negative) Influenza Type B (KG) Negative (Negative) Influenza A & B Note See Note 08/22/21 08/22/21 08/22/21 Range/Units 12:19 12:19 12:19 WBC (4.8-10.8) X10*3/uL RBC (4.20-5.50) X10*6/uL Hgb (12.0-16.0) g/dl Hct (37.0-47.0) % MCV (80.0-98.0) fL MCH (27.0-33.0) pg MCHC (31.0-35.0) g/dl RDW (11.0-16.0) % Plt Count (160-400) X10*3/uL MPV (9.4-12.3) fL Immature Gran % (Auto) (0.0-0.4) % Neut % (Auto) (45-73) % Lymph % (Auto) (20-40) % [place] % (Auto) (2-11) % Eos % (Auto) (0-4) % Baso % (Auto) (0-2) % Lymph # (Auto) (1.2-4.9) X10*3/uL [place] # (Auto) (0.1-1.2) X10*3/uL Eos # (Auto) (0.0-0.4) X10*3/uL Baso # (Auto) (0.0-0.2) X10*3/uL Abs Immat Gran (auto) (0.00-0.03) X10*3/uL Absolute Neuts (auto) (2.0-8.3) x10*3/uL Absolute Nucleated RBC (0.0-0.012) X10*3/uL Nucleated RBC % (auto) (0.0-0.2) /100WBC D-Dimer High Sensitivty NG/ML Sodium (135-145) mmol/L Potassium (3.3-5.1) mmol/L Chloride (96-108) mmol/L Carbon Dioxide (22-29) mmol/L Anion Gap (12-20) BUN (9-16) mg/dL Creatinine (0.5-1.4) mg/dL Estim Creat Clear Calc Estimated GFR Random Glucose (60-115) mg/dL Lactic Acid 1.6 (0.5-2.0) mmol/L Calcium (8.4-10.2) mg/dL Total Bilirubin (0.0-1.0) mg/dL Direct Bilirubin (0.0-0.5) mg/dL AST (5-31) U/L ALT (0-31) U/L Alkaline Phosphatase (39-117) U/L Total Protein (6.5-8.0) g/dL Albumin (3.5-5.0) g/dL Lipase (8-78) U/L Urine Color YELLOW Urine Appearance CLEAR Urine pH 7.0 (5.0-8.0) Ur Specific Sherrill 1.010 (1.005-1.025) Urine Protein NEG (NEG-TRACE) MG/DL Urine Glucose (UA) NEG (NEG) MG/DL Urine Ketones NEG (NEG) MG/DL Urine Blood NEG (NEG) Urine Nitrite NEG (NEG) Ur Leukocyte Esterase NEG (NEG) COVID-19 ([facility]) Negative (Negative) COVID-19 Clin Com See Note Influenza Type A (KG) (Negative) Influenza Type B (KG) (Negative) Influenza A & B Note 08/22/21 Range/Units 17:52 WBC (4.8-10.8) X10*3/uL RBC (4.20-5.50) X10*6/uL Hgb (12.0-16.0) g/dl Hct (37.0-47.0) % MCV (80.0-98.0) fL MCH (27.0-33.0) pg MCHC (31.0-35.0) g/dl RDW (11.0-16.0) % Plt Count (160-400) X10*3/uL MPV (9.4-12.3) fL Immature Gran % (Auto) (0.0-0.4) % Neut % (Auto) (45-73) % Lymph % (Auto) (20-40) % [place] % (Auto) (2-11) % Eos % (Auto) (0-4) % Baso % (Auto) (0-2) % Lymph # (Auto) (1.2-4.9) X10*3/uL [place] # (Auto) (0.1-1.2) X10*3/uL Eos # (Auto) (0.0-0.4) X10*3/uL Baso # (Auto) (0.0-0.2) X10*3/uL Abs Immat Gran (auto) (0.00-0.03) X10*3/uL Absolute Neuts (auto) (2.0-8.3) x10*3/uL Absolute Nucleated RBC (0.0-0.012) X10*3/uL Nucleated RBC % (auto) (0.0-0.2) /100WBC D-Dimer High Sensitivty 266 NG/ML Sodium (135-145) mmol/L Potassium (3.3-5.1) mmol/L Chloride (96-108) mmol/L Carbon Dioxide (22-29) mmol/L Anion Gap (12-20) BUN (9-16) mg/dL Creatinine (0.5-1.4) mg/dL Estim Creat Clear Calc Estimated GFR Random Glucose (60-115) mg/dL Lactic Acid (0.5-2.0) mmol/L Calcium (8.4-10.2) mg/dL Total Bilirubin (0.0-1.0) mg/dL Direct Bilirubin (0.0-0.5) mg/dL AST (5-31) U/L ALT (0-31) U/L Alkaline Phosphatase (39-117) U/L Total Protein (6.5-8.0) g/dL Albumin (3.5-5.0) g/dL Lipase (8-78) U/L Urine Color Urine Appearance Urine pH (5.0-8.0) Ur Specific Sherrill (1.005-1.025) Urine Protein (NEG-TRACE) MG/DL Urine Glucose (UA) (NEG) MG/DL Urine Ketones (NEG) MG/DL Urine Blood (NEG) Urine Nitrite (NEG) Ur Leukocyte Esterase (NEG) COVID-19 ([facility]) (Negative) COVID-19 Clin Com Influenza Type A (KG) (Negative) Influenza Type B (KG) (Negative) Influenza A & B Note Discharge Plan Discharge Clinical Impression: Pneumonia Patient Disposition: Home, Self-Care Instructions: Community Acquired Pneumonia (ED) Additional Instructions: Take antibiotic as prescribed Cough drops as advised Continue to use your inhaler and nebulizing treatment Pain medication as prescribed Prescriptions: New benzonatate 200 mg capsule 200 mg PO TID PRN (Reason: cough) Qty: 30 0RF cefuroxime axetil 500 mg tablet 500 mg PO BID Qty: 20 0RF doxycycline hyclate 100 mg tablet 100 mg PO BID Qty: 20 0RF tramadol 50 mg tablet 50 mg PO Q6H PRN (Reason: pain) Qty: 20 0RF No Action Incruse Ellipta 62.5 mcg/actuation blister with device 1 inh inhalation DAILY Qty: 90 6RF pantoprazole 40 mg tablet,delayed release (DR/EC) 40 mg PO DAILY Qty: 90 3RF multivitamin Tablet 1 tab PO DAILY Qty: 100 3RF nicotine 21 mg/24 hr patch 24 hour 1 patch transdermal DAILY Qty: 28 5RF meloxicam 15 mg tablet 15 mg PO DAILY Qty: 30 2RF albuterol sulfate 90 mcg/actuation HFA aerosol inhaler 2 puff inhalation Q6H PRN (Reason: for wheezing) Qty: 8.5 3RF loratadine 10 mg tablet 10 mg PO DAILY Qty: 90 0RF cholecalciferol (vitamin D3) 50 mcg (2,000 unit) capsule 50 mcg PO DAILY Qty: 90 0RF baclofen 10 mg tablet 10 mg PO BEDTIME Qty: 30 0RF ibuprofen 800 mg tablet 800 mg PO Q8H PRN (Reason: pain) Qty: 20 0RF Fluzone Quad [id number] (PF) 60 mcg (15 mcg x 4)/0.5 mL syringe IM fluticasone propionate 50 mcg/actuation spray,suspension 1 spray intranasal DAILY Boostrix Tdap 2.5-8-5 Lf-mcg-Lf/0.5mL syringe IM ONCE clonazepam 1 mg tablet 1 mg PO TID gabapentin 400 mg capsule 400 mg PO BID clonidine HCl 0.1 mg tablet 0.1 mg PO BID prednisone 10 mg tablet See Rx Instructions PO DAILY Qty: 30 0RF Rx Instructions: 4 tabl qd x3 days, then 3 tabl x3days, then 2tablqdx 3 days, then 1 tablx 3 days orally daily; folic acid 1 mg tablet 1 mg PO DAILY Qty: 90 1RF thiamine HCl (vitamin B1) 100 mg tablet 100 mg PO DAILY Qty: 90 1RF amlodipine 5 mg tablet 5 mg PO DAILY Qty: 90 3RF naltrexone 50 mg tablet 50 mg PO DAILY montelukast 10 mg tablet 10 mg PO DAILY 30 Days Qty: 30 2RF Interventions: ED Discharge Assessment Last Done: 08/22/21 21:27 Discharge Date/Time: 08/22/21 21:28
[2021-08-22 17:43] VITALS: BP 132/88; PULSE 102; RESP 16; TEMP 37.6; O2SAT 98
[2021-08-22 17:47] VITALS: PULSE 102; RESP 18; O2SAT 93
[2021-08-22] MEDS: Albuterol/Iprat 2.5/0.5MG 3 ML AMPUL.NEB INHALE (17:47)
[2021-08-22] MEDS: Ketorolac Tromethamine 30 MG/ML VIAL IVPUSH (17:59)
[2021-08-22] MEDS: cefTRIAXone sodium 1 GM in 0.9 % Sodium Chloride 50 ML IV (17:59)
[2021-08-22 19:15] VITALS: BP 128/74; PULSE 93; RESP 16; TEMP 37.2; O2SAT 97
[2021-08-22 19:22] LABS: D Dimer High Sensitivity 266 NG/ML
[2021-08-22] MEDS: iohexoL 350 MG/ML 100 ML INFUS..BTL IV (20:27)
[2021-08-22 21:07] VITALS: BP 137/80; PULSE 98; RESP 16; TEMP 36.3; O2SAT 98
== END 2021-08-22 21:28 | disposition home or self-care (01) ==
PROVIDERS: Emergency Provider Internal Medicine; PCP Internal Medicine
DX: J18.9 Pneumonia, unspecified organism (principal); R50.9 Fever, unspecified; R05.9 Cough, unspecified; Z20.822 Contact with and (suspected) exposure to COVID-19; Z79.899 Other long term (current) drug therapy
CPT/HCPCS: 36415; 71046; 71275; 80048; 80076; 81003; 83605; 83690; 85025; 85379; 87040; 87502; 87635; 94640; 96365; 96375; 99284; 99285; J0696; J1885; Q9967

== ENCOUNTER → 2021-08-28 14:44 | Outpatient (BNVA) | payer OTHER, SELFPAY | PROVIDERS: PCP Internal Medicine; Visit Provider Internal Medicine | DX: J18.9 Pneumonia, unspecified organism (principal); J44.9 Chronic obstructive pulmonary disease, unspecified; J98.11 Atelectasis; F17.210 Nicotine dependence, cigarettes, uncomplicated | CPT/HCPCS: 99212 ==

== ENCOUNTER 2021-08-31 07:41 | Day surgery (SDC) | payer OTHER, SELFPAY ==
--- NOTE | 2021-08-30 10:09 | P.CONAN_ITS ---
Documented by User: Taylor Sharma NP 08/30/21 10:09 HPI - Anesthesia Eval Consult details Narrative: 55yo F for Endoscopic Bronchial Ultrasound +ETOH smoker PMFSH Active Problems Active Problems: All Active Problems (Updated 08/28/21 @ 15:52 by Tremaine Murphy MD) Pneumonia (Acute) Atelectasis of right lung (Acute) Smoker (Acute) Wrist pain (Acute) Shoulder pain, left (Acute) Musculoskeletal pain (Acute) ETOH abuse (Acute) Anxiety and depression (Acute) Sacroiliac joint pain (Acute) Cervicalgia (Acute) Spondylosis of lumbar region without myelopathy or radiculopathy (Acute) Left hip pain (Acute) Rotator cuff impingement syndrome of left shoulder (Acute) COPD (chronic obstructive pulmonary disease) (Acute) Shoulder pain, left (Acute) Ex-smoker (Acute) Allergic rhinitis (Acute) Asthma (Acute) Abdominal pain (Acute) Gastritis (Acute) Cataract (Acute) HTN (hypertension) (Acute) GERD (gastroesophageal reflux disease) (Acute) Vitamin B12 deficiency (Acute) Vitamin D insufficiency (Acute) Past Medical History Medical History Allergic rhinitis Anxiety and depression Asthma Atelectasis of right lung Cataract COPD (chronic obstructive pulmonary disease) ETOH abuse Ex-smoker GERD (gastroesophageal reflux disease) HTN (hypertension) Migraine Musculoskeletal pain SUNSHINE on CPAP Pneumonia Shoulder pain, left Smoker Vitamin B12 deficiency Vitamin D insufficiency Family History Family History Father Alcoholic Mother Diabetes mellitus HTN (hypertension) Brother No problems noted. Brother No problems noted. Daughter No problems noted. Surgical History Surgical History H/O colonoscopy History of esophagogastroduodenoscopy (EGD) History of total hysterectomy S/P PRINCESS (total abdominal hysterectomy) Social History Social History Housing: Other Alcohol intake: former Patient Tobacco Use Status: Current someday Tobacco user Tobacco use type: Cigarette Cigarettes Per Day: 5 e-Cigarette/Vaping Use: Never Used Second Hand Smoke Exposure: No Use of substances other than those prescribed or required for medical reasons: No Are you DNR?: No Advance Directives: No Advance Directives Information Provided: Yes Recently lost weight without trying: Yes How much weight loss: 14-23 pounds Nutrition Risks: No Nutritional Risk service: No Current occupational status: disabled 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 Cognitive needs: No Hearing needs: No Vision needs: Yes Meds Allergies Allergy/AdvReac Type Severity Reaction Status Date / Time lamotrigine [From LAMICTAL] Allergy Severe RASH Verified 08/28/21 15:34 sumatriptan [From IMITREX] Allergy Intermediate RASH Verified 08/28/21 15:34 Home Medications Medication Instructions Recorded Confirmed Last Taken Type clonazepam 1 mg tablet 1 mg PO TID 01/11/20 08/28/21 08/31/21 History gabapentin 400 mg capsule 400 mg PO BID 01/11/20 08/28/21 08/31/21 History diphth,pertus(acell),tetanus 2.5 ml IM ONCE 01/28/20 08/28/21 Unknown History Lf unit-8 mcg-5 Lf/0.5mL IM syringe flu vacc [id number] 6mos up(PF) 60 ml IM 01/28/20 08/28/21 Unknown History mcg(15 mcgx4)/0.5 mL IM syringe fluticasone propionate 50 1 spray intranasal DAILY 01/28/20 08/28/21 Unknown History mcg/actuation nasal spray,suspension naltrexone 50 mg tablet 50 mg PO DAILY 06/01/21 08/28/21 Unknown History clonidine HCl 0.1 mg tablet 0.1 mg PO BID 08/11/21 08/28/21 Unknown History Exam Exam Date and Time: August 30, 2021 1009 Narrative Narrative: CT angio chest PE protocol 08/22/21 IMPRESSION: ? 1. No evidence pulmonary embolus. 2. Partial collapse of the right lower lobe and focal occlusion of distal right lower lobar bronchus by either mucoid material or alternatively a small endobronchial mass. Consider pulmonary consultation. 3. Small centrilobular nodules in the right lower lobe. Findings suggest superimposed right lower lobe pneumonia. 4. Enlarged right interlobar lymph node borderline enlarged subcarinal lymph nodes, which may be reactive or neoplastic. ? VTE: negative Documented by User: Yessica Galicia MD 08/31/21 09:30 PMFSH Past Medical History Medical History Allergic rhinitis Anxiety and depression Asthma Atelectasis of right lung Cataract COPD (chronic obstructive pulmonary disease) ETOH abuse Ex-smoker GERD (gastroesophageal reflux disease) HTN (hypertension) Migraine Musculoskeletal pain SUNSHINE on CPAP Pneumonia Shoulder pain, left Smoker Vitamin B12 deficiency Vitamin D insufficiency Functional capacity: independent ambulation Patient : No Family History Family History Father Alcoholic Mother Diabetes mellitus HTN (hypertension) Brother No problems noted. Brother No problems noted. Daughter No problems noted. Family history of problems with anesthesia: No Surgical History Surgical History H/O colonoscopy History of esophagogastroduodenoscopy (EGD) History of total hysterectomy S/P PRINCESS (total abdominal hysterectomy) History of Problems with Anesthesia: No Social History Social History Housing: Other Alcohol intake: former Patient Tobacco Use Status: Current someday Tobacco user Tobacco use type: Cigarette Cigarettes Per Day: 5 e-Cigarette/Vaping Use: Never Used Second Hand Smoke Exposure: No Use of substances other than those prescribed or required for medical reasons: No Are you DNR?: No Advance Directives: No Advance Directives Information Provided: Yes Recently lost weight without trying: Yes How much weight loss: 14-23 pounds Nutrition Risks: No Nutritional Risk service: No Current occupational status: disabled 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 Cognitive needs: No Hearing needs: No Vision needs: Yes Meds Allergies Allergy/AdvReac Type Severity Reaction Status Date / Time lamotrigine [From LAMICTAL] Allergy Severe RASH Verified 08/28/21 15:34 sumatriptan [From IMITREX] Allergy Intermediate RASH Verified 08/28/21 15:34 Home Medications Medication Instructions Recorded Confirmed Last Taken Type clonazepam 1 mg tablet 1 mg PO TID 01/11/20 08/28/21 08/31/21 History gabapentin 400 mg capsule 400 mg PO BID 01/11/20 08/28/21 08/31/21 History diphth,pertus(acell),tetanus 2.5 ml IM ONCE 01/28/20 08/28/21 Unknown History Lf unit-8 mcg-5 Lf/0.5mL IM syringe flu vacc [id number] 6mos up(PF) 60 ml IM 01/28/20 08/28/21 Unknown History mcg(15 mcgx4)/0.5 mL IM syringe fluticasone propionate 50 1 spray intranasal DAILY 01/28/20 08/28/21 Unknown History mcg/actuation nasal spray,suspension naltrexone 50 mg tablet 50 mg PO DAILY 06/01/21 08/28/21 Unknown History clonidine HCl 0.1 mg tablet 0.1 mg PO BID 08/11/21 08/28/21 Unknown History Exam Airway Mallampati Class: III TM Dist: >3cm Neck ROM: Full Denture: Lower Heart: RRR Lungs: CTA Assessment and Plan Final Anesthetic Review Family History of Problems with Anesthesia: No History of Problems with Anesthesia: No ASA Class: III Final Preanesthetic Review: Meds/Allgs Chart Reviewed, Consent Obtained/Reviewed and Anes Risks/Benef Reviewed Patient Risk: Intermediate Procedure Risk: Low Anesthetic Plan Anesthetic Plan: GA Disposition: Standard PACU
[2021-08-31] VITALS (12 sets, daily range): BP systolic 95–144; BP diastolic 41–87; PULSE 75–99; RESP 15–22; TEMP 35.9–36.2; O2SAT 95–99; BMI 31.9
--- NOTE | 2021-08-31 | ECG_ITS ---
Test Reason : sob, preop Blood Pressure : / mmHG Vent. Rate : 079 BPM Atrial Rate : 079 BPM P-R Int : 142 ms QRS Dur : 068 ms QT Int : 356 ms P-R-T Axes : 007 007 065 degrees QTc Int : 408 ms Normal sinus rhythm Normal ECG When compared with ECG of 09-MAY-2010 00:26, Nonspecific T wave abnormality no longer evident in Inferior leads Referred By: Taylor Sharma Electronically Signed By:Tal Rowe
[2021-08-31] MEDS: Lactated Ringers 1,000 ML 100 ML IVCONT (08:31)
--- NOTE | 2021-08-31 09:36 | MHC.SHP ---
Pre-Procedural Eval Section A Date of Service: 08/31/21 The patient is an INPATIENT: No Changes since office visit: No Cold of Flu in the past 2 weeks, No New Medical Problems, No Changes in Medication and No Patient answered all questions The History & Physical has been completed within 30 days and I have reviewed it.: No Section B Chief Complaint: disease of bronc Details of Present Illness: worsening productive cough. ?aspiration. CT chest with post obstructive process Relevant Family History (Specify if Yes): No Relevant Social History: Tobacco Use Present Medications: see Short Stay Collaborative assessment Medical History: Significant History History of Previous Operations: Relevant previous surgery/procedure and date(s) Allergies: Allergies Allergy/AdvReac Type Severity Reaction Status Date / Time lamotrigine [From LAMICTAL] Allergy Severe RASH Verified 08/28/21 15:34 sumatriptan [From IMITREX] Allergy Intermediate RASH Verified 08/28/21 15:34 Review of Systems Sugical H&P ROS: Negative: Constitution, Cardiovascular, Neurological, Psychiatric, Hem-Onc, Allergic/Immunologic, Gastrointestinal, Genitourinary and Musculoskeletal and Yes, Specify: Respiratory (cough) Exam Surgical H&P Exam: Normal: HEENT, Normal: Heart, Normal: Extremities, Normal: Abdomen and Normal: Skin and Significant Findings: Lungs (dimished) Plan Diagnosis/Plan: Change (bronchoscopy, EBUS to assess lymph nodes and regular bronchoscopy) I have reviewed the history and physical and performed a pertinent physical examination on my patient. No changes have occurred unless specified.
--- NOTE | 2021-08-31 13:45 | P.BOP_ITS ---
Brief Operative Note Date of Service: 08/31/21 Pre-op diagnosis: pneumonia, lymphadenopathy Post-op diagnosis: other (Irregular RLL mucosa ) Procedure: EBUS with TBNA and bronchosopy with biopsies Implants: Surgeon: Juvencio Stout MD Was an [employer]gr[employer] Internship used for this Procedure?: No Estimated blood loss (mL): 5 Pathology: other (RLL biopsies, station 7, 11R TBNA) Condition: stable Disposition: same day
--- NOTE | 2021-09-01 00:50 | OP_ITS ---
SURGEON: Juvencio Stout MD PREOPERATIVE DIAGNOSIS: POSTOPERATIVE DIAGNOSIS: PROCEDURE PERFORMED: Endobronchial ultrasound bronchoscopy with transbronchial needle aspiration and bronchoscopy with biopsy and brushings. ESTIMATED BLOOD LOSS: 5 mL. COMPLICATIONS: None. ANESTHESIA: General endotracheal anesthesia provided. ASSISTANTS: SPECIMENS: PREOPERATIVE DIAGNOSES: Pneumonia, question postobstructive process, and lymphadenopathy, question foreign body aspiration. POSTOPERATIVE DIAGNOSES: Pneumonia, lymphadenopathy, and irregular right lower lobe mucosa. INTERPRETATION: 1. EBUS-TBNA of station 7 and station 11R. 2. Endobronchial biopsies from the right lower lobe. 3. Cytologic brushing from the right lower lobe. 4. Bronchial washings from the right lower lobe. DESCRIPTION OF PROCEDURE: After the patient was sedated and intubated, a flexible digital bronchoscope with EBUS was inserted via the ET tube to the level of the main ml. Using the ultrasound guidance, the different lymph node stations were evaluated. The patient had about a 1.5 to 2 cm lymph node in the subcarinal station 7 and also about a 1 to 1.5 cm lymph node at station 11R. Using ultrasound guidance, transbronchial needle aspirations were done at times, collected specimens at the subcarinal region station 7 and then navigated to station 11R where 3 additional sampling was provided and both placed in CytoRich solution for further cytologic evaluation. Patient did have some bleeding, but reached spontaneous hemostasis. The endobronchial bronchoscopy was removed, replaced with a regular bronchoscopy. The tracheobronchial tree examined up to the subsegmental level. The patient did have abnormal looking mucosa in the right lower lobe appeared to be irritated, irregular, inflamed, although no obvious focal abnormality. This could be secondary to a reaction if she has indeed aspirated something into the right lower lobe versus a malignant process. Therefore, cytologic brushing was performed of the right lower lobe and then endobronchial biopsies were collected in formalin. Bronchial washings were also collected and sent to cytology and also microbiology. The patient had no evidence of any active bleeding at the end of the procedure. The patient is hemodynamically stable. She was able to be extubated. MD JERMAIN Aleman/SINDYL / [phone]
== END 2021-08-31 14:40 | disposition home or self-care (01) ==
PROVIDERS: PCP Internal Medicine; Visit Provider Hospitalist
PROC: (CPT 31625; principal; 2021-08-31 09:40)
DX: J98.09 Other diseases of bronchus, not elsewhere classified (principal); R59.1 Generalized enlarged lymph nodes; J18.9 Pneumonia, unspecified organism; J98.11 Atelectasis; J44.9 Chronic obstructive pulmonary disease, unspecified; I10 Essential (primary) hypertension; K21.9 Gastro-esophageal reflux disease without esophagitis; E55.9 Vitamin D deficiency, unspecified; E53.8 Deficiency of other specified B group vitamins; F10.10 Alcohol abuse, uncomplicated; F31.9 Bipolar disorder, unspecified; F17.210 Nicotine dependence, cigarettes, uncomplicated; Z79.51 Long term (current) use of inhaled steroids; Z79.899 Other long term (current) drug therapy; Z88.8 Allergy status to other drugs, medicaments and biological substances; Z99.89 Dependence on other enabling machines and devices
CPT/HCPCS: 31625; 31652; 31623; 87071; 87205; 88112; 88173; 88305; 93005; J0171; J1100; J2250; J2405; J2550; J3010

== ENCOUNTER → 2021-09-07 15:38 | Outpatient (BNVA) | payer OTHER, SELFPAY | PROVIDERS: PCP Internal Medicine; Visit Provider Internal Medicine | DX: J18.9 Pneumonia, unspecified organism (principal); J98.11 Atelectasis; F17.200 Nicotine dependence, unspecified, uncomplicated; Z71.6 Tobacco abuse counseling | CPT/HCPCS: Q3014 ==

== ENCOUNTER → 2021-09-26 11:25 | Outpatient (BNVA) | payer OTHER, SELFPAY | PROVIDERS: PCP Internal Medicine; Visit Provider Internal Medicine | DX: R13.10 Dysphagia, unspecified (principal); F41.9 Anxiety disorder, unspecified; F32.A Depression, unspecified; J44.9 Chronic obstructive pulmonary disease, unspecified; J45.21 Mild intermittent asthma with (acute) exacerbation; J30.9 Allergic rhinitis, unspecified; F17.210 Nicotine dependence, cigarettes, uncomplicated | CPT/HCPCS: 99212 ==

== ENCOUNTER 2021-09-27 11:00 | Outpatient (RCR) | payer OTHER, SELFPAY ==
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
== END 2021-11-15 15:23 | disposition home or self-care (01) ==
LOC: HO.OT 11:00
PROVIDERS: PCP Internal Medicine; Visit Provider Student in an Organized Health Care Education/Training Program
DX: T23.262D Burn of second degree of back of left hand, subsequent encounter (principal)
CPT/HCPCS: 97110; 97165

== ENCOUNTER 2021-10-17 13:40 | Outpatient (REF) | payer OTHER, SELFPAY ==
[2021-10-17 16:19] LABS: MANUAL DIFF FLAG NO
[2021-10-17 16:31] LABS: Basophils Absolute Auto 0.1 X10*3/uL (0.0-0.2); Basophils Percent Auto 1.2 % (0-2); Eosinophils Absolute Auto 0.2 X10*3/uL (0.0-0.4); Eosinophils Percent Auto 2.6 % (0-4); Hematocrit 43.3 % (37.0-47.0); Hemoglobin 14.1 g/dl (12.0-16.0); Imm Gran Abs Auto 0.02 X10*3/uL (0.00-0.03); Imm Gran Pct Auto 0.2 % (0.0-0.4); Lymphocytes Absolute Auto 3.7 X10*3/uL (1.2-4.9); Lymphocytes Percent Auto 43.1 % (20-40); Mean Corpuscular HGB Conc 32.6 g/dl (31.0-35.0); Mean Corpuscular Hemoglobin 31.6 pg (27.0-33.0); Mean Corpuscular Volume 97.1 fL (80.0-98.0); Mean Platelet Volume 10.1 fL (9.4-12.3); Monocytes Absolute Auto 0.5 X10*3/uL (0.1-1.2); Monocytes Percent Auto 5.6 % (2-11); Neutrophils Percent Auto 47.3 % (45-73); Platelet Count 281 X10*3/uL (160-400); Red Blood Count 4.46 X10*6/uL (4.20-5.50); White Blood Count 8.5 X10*3/uL (4.8-10.8)
[2021-10-17 16:49] LABS: Alanine Aminotransferase 16 U/L (0-31); Albumin Level 4.2 g/dL (3.5-5.0); Alkaline Phosphatase 133 U/L (39-117); Anion Gap 16 (12-20); Aspartate Amino Transferase 18 U/L (5-31); Bilirubin Total 0.3 mg/dL (0.0-1.0); Blood Urea Nitrogen 19 mg/dL (9-16); Calcium 9.3 mg/dL (8.4-10.2); Carbon Dioxide 25 mmol/L (22-29); Chloride 105 mmol/L (96-108); Estimated Glomerular Filt Rate 51; Glucose Random 92 mg/dL (60-115); Potassium 4.2 mmol/L (3.3-5.1); Sodium 142 mmol/L (135-145); Total Protein 7.3 g/dL (6.5-8.0)
[2021-10-17 17:09] LABS: Vitamin D 25-OH Total 48.2 ng/mL (>30)
[2021-10-17 17:29] LABS: Folate > 20.0 ng/mL (> or = 4.0); Vitamin B12 387 pg/mL (200-900)
== END 2021-10-17 13:41 | disposition home or self-care (01) ==
LOC: HO.HMGCLDS 13:40
PROVIDERS: PCP Internal Medicine; Visit Provider Internal Medicine
DX: I10 Essential (primary) hypertension (principal); R49.0 Dysphonia; J18.9 Pneumonia, unspecified organism; L98.9 Disorder of the skin and subcutaneous tissue, unspecified; E53.8 Deficiency of other specified B group vitamins; E55.9 Vitamin D deficiency, unspecified; R53.83 Other fatigue
CPT/HCPCS: 36415; 80053; 82306; 82607; 82746; 84443; 85025

== ENCOUNTER 2021-11-06 11:27 | Outpatient (REF) | payer OTHER, SELFPAY ==
--- NOTE | ~2021-11-06 | US_ITS ---
EXAMINATION: US extremity nonvascular CLINICAL INFORMATION: Palpable lump COMPARISON: None TECHNIQUE: Grayscale and color views of the area of palpable concern in the right lower leg were obtained. FINDINGS: No sonographic correlate to reported symptom of palpable lump. No fluid collection, lymphadenopathy or soft tissue mass. US/US extremity nonvascular IMPRESSION: No sonographic correlate to reported symptom of palpable lump.
== END 2021-11-06 11:28 | disposition home or self-care (01) ==
LOC: HO.HMGCX 11:27
PROVIDERS: PCP Internal Medicine; Visit Provider Internal Medicine
DX: L98.9 Disorder of the skin and subcutaneous tissue, unspecified (principal)
CPT/HCPCS: 76882

== ENCOUNTER 2021-11-08 10:05 | Outpatient (REF) | payer OTHER, SELFPAY ==
--- NOTE | ~2021-11-08 | FL_ITS ---
EXAMINATION: FL BARIUM SWALLOW CLINICAL INFORMATION: Aspiration pneumonia COMPARISON: Previous chest x-ray and chest CT August 2021 TECHNIQUE: Barium swallow examination is performed using fluoroscopic evaluation in addition to multiple fluoroscopic spot views. The patient is imaged both upright and prone and using both thick and thin sulfate along with effervescent granules. Barium tablet was also administered. Fluoroscopy time: 0.7 minutes DAP: 5.2 Gycm2 Images: 42 FINDINGS: The swallowing mechanism is normal. No aspiration or penetration is seen. Esophageal motility is normal. There is gastroesophageal reflux. No hernia, mass or evidence of esophagitis is seen. Barium tablet passed freely into the stomach. Visualized stomach and duodenum are unremarkable. FL/FL barium swallow IMPRESSION: Gastroesophageal reflux.
== END 2021-11-08 10:06 | disposition home or self-care (01) ==
LOC: HO.XRAY 10:05
PROVIDERS: PCP Internal Medicine; Visit Provider Internal Medicine
DX: R13.10 Dysphagia, unspecified (principal)
CPT/HCPCS: 74220

== ENCOUNTER → 2021-11-21 14:14 | Outpatient (BNVA) | payer OTHER, SELFPAY | PROVIDERS: PCP Internal Medicine; Visit Provider Internal Medicine | DX: J44.9 Chronic obstructive pulmonary disease, unspecified (principal); J98.11 Atelectasis; J45.21 Mild intermittent asthma with (acute) exacerbation; J30.9 Allergic rhinitis, unspecified; Z87.891 Personal history of nicotine dependence | CPT/HCPCS: 99212 ==

== ENCOUNTER 2021-12-18 10:00 | Outpatient (RCR) | payer OTHER, SELFPAY ==
--- NOTE | 2021-11-29 17:31 | MHC.PT.EP ---
[facility] [place] Office [place] Office [place] Office [address] [phone] F: [phone] F: [phone] F: [phone] F: [phone] Physical Therapy Plan of Care Date of Evaluation: Date of Surgery: Diagnosis: R knee pain Assessment: Pt is a 56 y/o female referred to PT for eval ant treat of R knee pain resulting in decreased tolerance for touching her knee, washing her anterior R knee, dressing pants, as well as kneeling secondary to R knee effusion, TTP of R anterior knee and pain. Pt is deemed an appropriate candidate to receive skilled PT in order to address her physical limitations to improve her functional ability. Frequency and Duration: The patient will be seen 2 x / wk x 4 wks. 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 Pt will no longer be TTP of her anterior R knee; initial: 3+ TTP considerable. Pt will b able to dress and wash LE without difficulty. Treatment Plan: Modalities to reduce pain, spasms and effusion. Manual therapy to restore motion and function. Therapeutic exercise to improve strength and flexibility. Neuromuscular re-education for posture and balance. Therapeutic activities to return to functional activities of daily living. Electronically signed by: Anupam Wilson, Please sign and return to therapist. Thank you for your referral.
--- NOTE | 2021-12-18 17:02 | MHC.PT.DC ---
[facility] [place] Office [place] Office [place] Office [address] [phone] F: [phone] F: [phone] F: [phone] F: [phone] Physical Therapy Discharge Report Diagnosis: R knee pain Date of Surgery: Date of Evaluation: 11/29/21 Date of Discharge: 12/18/21 Treatments to Date: 6 Cancellations to Date: No Shows to Date: Discharge Status: Recommend MD Follow-up Discharge Summary: Annie has attended 6 PT treatments for her condition and demonstrated improvement in her R knee swelling and TTP through US, ice, tissue mobilization and taping; however on her discharge visit Pt demonstrates some increased swelling with no reported incident; she is again with high TTP pf her inferior R knee. Pt is in agreement with DC today and is recommended to f/u with her MD. Electronically signed by: Anupam Wilson PT. Please sign and return to therapist. Thank you for your referral.
== END 2021-12-18 17:03 | disposition home or self-care (01) ==
LOC: HO.PTCHIC 10:00
PROVIDERS: PCP Internal Medicine; Visit Provider Internal Medicine
DX: M25.561 Pain in right knee (principal)
CPT/HCPCS: 97035; 97110; 97140; 97162

== ENCOUNTER 2022-01-18 | Outpatient (REF) | payer OTHER, SELFPAY ==
--- NOTE | ~2022-01-18 | XR_ITS ---
EXAMINATION: XR knee RT 2V, XR knee standing BI CLINICAL INFORMATION: Reason for Exam M25.569 - Pain in unspecified knee COMPARISON: Knee radiographs 06/10/2018. TECHNIQUE: Two views of the right knee and one view of the bilateral knees standing. FINDINGS: No acute fracture or dislocation. Mild degenerative changes of the right knee with spurring of the tibial spines and small patellofemoral and medial compartment osteophytes. Few calcifications noted in the lateral right tibiofemoral joint space measuring up to 6 mm may reflect loose bodies. Minimal degenerative changes of the left knee with spurring of the tibial spines. No right suprapatellar joint effusion. XR/XR knee RT 2V IMPRESSION: Mild degenerative changes of the right knee. Few calcifications noted in the lateral right tibiofemoral joint space measuring up to 6 mm may reflect loose bodies. Minimal degenerative changes of the left knee.
--- NOTE | ~2022-01-18 | XR_ITS ---
EXAMINATION: XR knee RT 2V, XR knee standing BI CLINICAL INFORMATION: Reason for Exam M25.569 - Pain in unspecified knee COMPARISON: Knee radiographs 06/10/2018. TECHNIQUE: Two views of the right knee and one view of the bilateral knees standing. FINDINGS: No acute fracture or dislocation. Mild degenerative changes of the right knee with spurring of the tibial spines and small patellofemoral and medial compartment osteophytes. Few calcifications noted in the lateral right tibiofemoral joint space measuring up to 6 mm may reflect loose bodies. Minimal degenerative changes of the left knee with spurring of the tibial spines. No right suprapatellar joint effusion. XR/XR knee standing BI IMPRESSION: Mild degenerative changes of the right knee. Few calcifications noted in the lateral right tibiofemoral joint space measuring up to 6 mm may reflect loose bodies. Minimal degenerative changes of the left knee.
== END 2022-01-18 00:01 | disposition home or self-care (01) ==
LOC: HO.HOSX
PROVIDERS: Visit Provider Physician Assistant
DX: M70.50 Other bursitis of knee, unspecified knee (principal)
CPT/HCPCS: 73560; 73565; 99202

== ENCOUNTER 2022-02-08 10:16 | Outpatient (REF) | payer OTHER, SELFPAY ==
--- NOTE | ~2022-02-08 | MR_ITS ---
EXAMINATION: MR KNEE WITHOUT CONTRAST, RIGHT CLINICAL INFORMATION: Other bursitis of the right knee. Knee pain. COMPARISON: None TECHNIQUE: MRI of the knee without contrast was performed using routine sequences on a high-field scanner. FINDINGS: MENISCI: Medial Meniscus: A very subtle focus of intermediate signal intensity is present within a substance of the meniscus at the junction of the posterior horn and body, contacting the undersurface, possibly representing a very small oblique horizontal/radial undersurface tear. No significant meniscal extrusion. Lateral Meniscus: Inner margin blunting is evident at the posterior horn near the root with undersurface and free edge fraying. No acute tears. No meniscal extrusion. LIGAMENTS: Cruciate: Intact. Collateral: Intact. EXTENSOR MECHANISM: Intact. ARTICULAR CARTILAGE/BONE: Patellofemoral Compartment: Moderate nonuniform articular cartilage loss is evident at the patella with foci of full-thickness chondral fissuring and chondral fibrillation. Minimal cortical irregularity and subcortical edema signal are evident at the median ridge inferiorly. There is mild nonuniform chondral thinning at the cephalad margin of the lateral trochlear facet. Sulcus angle measures 143 degrees, within normal limits. Lateral trochlear inclination angle measures 12 degrees, within normal limits. TT-TG distance measures 1.4 cm. Medial Compartment: A small focus of partial-thickness cartilage loss is evident at the lateral third of the medial femoral condyle weightbearing surface. More mild partial-thickness chondral thinning is present at the medial tibial plateau. Small marginal osteophytes. Lateral Compartment: Small marginal osteophytes are present at the lateral compartment. There is moderate nonuniform chondral thinning along the posterior third of the lateral tibial plateau over an area measuring 1 x 1.3 cm. JOINT FLUID AND BURSAE: Small joint effusion and Mac's cyst. Multiple low signal intensity intra-articular loose bodies are clustered in the anterior recess of the lateral compartment, measuring up to 1.3 cm in diameter. MR/MR knee RT wo con IMPRESSION: 1. 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 2. Mild medial and lateral compartment osteoarthritis. 3. Small joint effusion and Mac's cyst with multiple intra-articular loose bodies in the anterior recess of the lateral compartment. 4. Inner margin fraying at the posterior horn of the lateral meniscus without a discrete tear. 5. Possible small horizontal/radial undersurface tear at the junction of the posterior horn and body of the medial meniscus.
== END 2022-02-08 10:17 | disposition home or self-care (01) ==
LOC: HO.MRI 10:16
PROVIDERS: Visit Provider Physician Assistant
DX: M70.50 Other bursitis of knee, unspecified knee (principal)
CPT/HCPCS: 73721

== ENCOUNTER 2022-02-27 11:18 | Inpatient (IN) | payer OTHER, SELFPAY ==
[2022-02-27] VITALS (8 sets, daily range): BP systolic 105–110; BP diastolic 67–77; PULSE 85–126; RESP 16–29; TEMP 37.2–37.7; O2SAT 78–94; BMI 32.4
--- NOTE | ~2022-02-27 | CT_ITS ---
EXAMINATION: CT ANGIOGRAM OF THE CHEST WITH AND WITHOUT CONTRAST (CT PULMONARY ANGIOGRAM FOR PE) CLINICAL INFORMATION: Reason for Exam shortness of breath COMPARISON: Chest x-ray 02/27/2022. CT of chest 08/22/2021 TECHNIQUE: Prior to contrast administration, noncontrast localization images were obtained. Subsequently, multidetector volumetric imaging was performed from the thoracic inlet to below the diaphragms following the administration of 65 mL Omnipaque 350 intravenous contrast. No contrast reaction reported Sagittal, coronal, and MIP oblique sagittal reformatted images were obtained on the CT workstation, uploaded to PACS, and reviewed. This CT examination was performed using dose optimization techniques as appropriate, variously including the following: *Automated exposure control *Adjustment of mA and/or kV according to patient size (this includes techniques or standardized protocols for targeted exams where dose is matched to indication/reason for exam; i.e. extremities or head) *Use of iterative reconstruction technique Total exam dose-length product 465 mGy-cm FINDINGS: QUALITY OF STUDY/CONTRAST BOLUS: Satisfactory. PULMONARY ARTERIES: No central or segmental pulmonary emboli. THORACIC AORTA: No aneurysm or dissection. LUNG: Dense consolidation with air bronchograms involving the right lower lobe middle lobe. There are a few small scattered areas of parenchymal stranding and patchy airspace opacities in the left lung. PLEURA: Moderate volume right pleural effusion. No significant left pleural effusion. MEDIASTINUM: Heart size is mildly prominent. No pericardial effusion. No evidence of septal bowing or right heart strain. No significant lymphadenopathy. CORONARY ARTERY CALCIFICATION: None visualized on this study. CHEST WALL/AXILLA: No axillary or internal mammary lymphadenopathy. OSSEOUS STRUCTURES: No acute or suspicious osseous abnormality. UPPER ABDOMEN: Unremarkable. No reflux of contrast into the hepatic veins to suggest elevated right heart pressures. CT/CT angio chest PE protocol IMPRESSION: 1. No evidence of pulmonary embolism. 2. Dense consolidation involving the right lower lobe and middle lobe with moderate volume right pleural effusion. 3. There are a few scattered areas of parenchymal stranding and patchy airspace opacities in the left lung. VTE: negative
--- NOTE | ~2022-02-27 | XR_ITS ---
EXAMINATION: XR CHEST CLINICAL INFORMATION: Cough with yellow phlegm. COMPARISON: CTA chest August 2021. Chest x-ray August 2021. TECHNIQUE: 2 views of the chest were obtained. FINDINGS: There is opacification at the right base compatible with a pleural effusion likely concomitant consolidation. Lungs otherwise clear. Cardiac mediastinal silhouette normal. Bone and soft tissues unremarkable. XR/XR chest 2V IMPRESSION: Opacification at the right base compatible with a pleural effusion and likely concomitant consolidation. Consolidation is noted on the prior imaging examinations August 2021 but without effusion
--- NOTE | ~2022-02-27 | US_ITS ---
EXAMINATION: US CHEST CLINICAL INFORMATION: Pleural effusion, hypoxia. COMPARISON: CT chest 02/27/2022. TECHNIQUE: Preliminary ultrasound imaging was performed at the right pleural space, and no substantial fluid was seen to be drained. Thoracentesis procedure was canceled. US/US chest FINDINGS/IMPRESSION: Preliminary ultrasound imaging of right pleural space reveals no pleural effusion.
--- NOTE | 2022-02-27 11:47 | ED.GENADULT ---
HPI - General Adult General Chief complaint: Dyspnea <RAYNA Cat - Last Filed: 03/12/22 09:36> Stated complaint: DIFF BREATHING <RAYNA Cat - Last Filed: 03/12/22 09:36> Time Seen by Provider: 02/27/22 12:03 <RAYNA Cat - Last Filed: 03/12/22 09:36> Source: patient <Kaylyn Valderrama NP - Last Filed: 02/27/22 17:19> Mode of arrival: ambulatory <Kaylyn Valderrama NP - Last Filed: 02/27/22 17:19> Limitations: no limitations <Kaylyn Valderrama NP - Last Filed: 02/27/22 17:19> History of Present Illness HPI narrative: 56-year-old female a past medical history of COPD, asthma, several year smoking history, pneumonia 08/22/21, and Covid diagnosis > 2 weeks ago presents the emergency department for complaints of a 2 week history of fever, cough, and difficulty breathing. She was started on prednisone and doxycycline on 02/22/22, by primary care provider, after failing a 5-day course of azithromycin. HPI limited due to pt's difficulty speaking in full sentences due to need to catch her breath. Pt denies headache, chest pain, vision changes, or confusion. <Kaylyn Valderrama NP - Last Filed: 02/27/22 17:19> Related Data Home medications: Home Medications Medication Instructions Recorded Confirmed clonazepam 1 mg tablet 1 mg PO TID 01/11/20 02/27/22 gabapentin 400 mg capsule 400 mg PO BID 01/11/20 02/27/22 [id number] 1 tab PO Q4H PRN Headache 02/27/22 02/27/22 50 mg-325 mg-40 mg tablet fluticasone 250 mcg-salmeterol 50 1 puff inhalation BID 02/27/22 02/27/22 mcg/dose blistr powdr for inhalation (Wixela Inhub) ipratropium 0.5 mg-albuterol 3 mg 3 ml inhalation QID 02/27/22 02/27/22 (2.5 mg base)/3 mL nebulization soln naltrexone 50 mg tablet 1 tab PO DAILY 02/27/22 02/27/22 ondansetron 4 mg disintegrating 1 tab PO TID PRN Nausea 02/27/22 02/27/22 tablet pantoprazole 40 mg tablet,delayed 40 mg PO BID 02/27/22 02/27/22 release vortioxetine 10 mg tablet 1 tab PO DAILY 02/27/22 02/27/22 (Trintellix) acamprosate 333 mg tablet,delayed 2 tab PO TID 02/28/22 02/28/22 release Previous Rx's Medication Instructions Recorded loratadine 10 mg tablet 10 mg PO DAILY #90 tabs 07/25/21 multivitamin 1 tab PO DAILY #100 tabs 10/06/21 amlodipine 5 mg tablet 5 mg PO DAILY #90 tabs 11/07/21 fluticasone propionate 50 1 spray intranasal DAILY #48 mL 11/07/21 mcg/actuation nasal spray,suspension folic acid 1 mg tablet 1 mg PO DAILY #90 tabs 11/08/21 nicotine 14 mg/24 hr daily 1 patch transdermal DAILY #28 ea 11/14/21 transdermal patch thiamine HCl (vitamin B1) 100 mg 100 mg PO DAILY #90 tabs 11/28/21 tablet cholecalciferol (vitamin D3) 50 50 mcg PO DAILY #90 caps 12/18/21 mcg (2,000 unit) capsule albuterol sulfate 90 mcg/actuation 2 puff inhalation Q6H PRN for 12/19/21 aerosol inhaler wheezing #8.5 ea montelukast 10 mg tablet 10 mg PO DAILY #90 tabs 02/13/22 baclofen 10 mg tablet 10 mg PO BEDTIME #30 tabs 02/23/22 cefuroxime axetil 500 mg tablet 500 mg PO Q12H #10 tabs 03/05/22 <RAYNA Cat - Last Filed: 03/12/22 09:36> Allergies/adverse reactions: Allergies Allergy/AdvReac Type Severity Reaction Status Date / Time lamotrigine [From LAMICTAL] Allergy Severe RASH Verified 01/18/22 12:48 sumatriptan [From IMITREX] Allergy Intermediate RASH Verified 01/18/22 12:48 <RAYNA Cat - Last Filed: 03/12/22 09:36> Review of Systems Review of Systems: In addition to documented HPI above, the additional ROS was obtained: CONSTITUTIONAL: Denies chills, headache, night sweats, or weight loss EYES: Denies vision changes, eye pain, swelling, redness, foreign body, discharge ENT: Hearing normal. Denies sore throat, congestion, ear pain, no hoarseness CV: Denies chest pain or epigastric pain. No edema, palpitations, or dyspnea on exertion RESP: Denies wheezing. Denies smoke exposure GI: Denies abdominal pain. Denies nausea, vomiting, constipation or diarrhea. No melena or hematochezia. : Denies irregular bleeding, and dysuria, urinary frequency, urinary incontinence/retention, urgency. Denies flank pain, hematuria MSK: Denies recent trauma, change in gait, myalgias, joint swelling or pain SKIN: Denies no lesions, rashes, or sores NEURO: Denies new numbness, tingling, dizziness, paresthesias or weakness. No loss of consciousness. Denies headache ENDOCRINE: Denies unexpected weight loss. Denies polyuria, polydipsia. No temperature intolerance HEME/ONC: Denies bleeding disorders, easy bruising, or lymphadenopathy PSYCH: Denies current anxiety/panic, depression, SI/HI, or social issues. <Kaylyn Valderrama NP - Last Filed: 02/27/22 17:19> Yes all other systems are reviewed and are negative <Kaylyn Valderrama NP - Last Filed: 02/27/22 17:19> [facility] Past Medical History Attestation statement: The following information was validated with the patient. <Kaylyn Valderrama NP - Last Filed: 02/27/22 17:19> Source: old records reviewed <Kaylyn Valderrama NP - Last Filed: 02/27/22 17:19> Medical History: Medical History (Updated 03/04/22 @ 11:21 by Artis Tellez DO) Allergic rhinitis Anxiety and depression Asthma Atelectasis of right lung Cataract COPD (chronic obstructive pulmonary disease) Dysphagia ETOH abuse Ex-smoker GERD (gastroesophageal reflux disease) HTN (hypertension) Migraine Musculoskeletal pain SUNSHINE on CPAP Vitamin B12 deficiency Vitamin D insufficiency <RAYNA Cat - Last Filed: 03/12/22 09:36> Surgical History: Surgical History H/O colonoscopy History of esophagogastroduodenoscopy (EGD) History of total hysterectomy S/P PRINCESS (total abdominal hysterectomy) <RAYNA Cat - Last Filed: 03/12/22 09:36> Family History Family History: Family History Father Alcoholic Mother Diabetes mellitus HTN (hypertension) Brother No problems noted. Brother No problems noted. Daughter No problems noted. 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 Cognitive needs: No Hearing needs: No Vision needs: Yes <RAYNA Cat - Last Filed: 03/12/22 09:36> Physical Exam ED Vital Signs: Vital Signs - 24 hr 02/27/22 11:43 02/27/22 12:28 02/27/22 13:42 Temperature 99.8 F Pulse Rate 126 H 120 H Respiratory Rate 24 H 20 21 H Blood Pressure 110/77 Pulse Oximetry 78 L Oxygen Delivery Method Room Air 02/27/22 16:23 Temperature Pulse Rate Respiratory Rate 17 Blood Pressure Pulse Oximetry Oxygen Delivery Method BMI result Body Mass Index 32.4 <RAYNA Cat - Last Filed: 03/12/22 09:36> Vital Signs - 24 hr 02/27/22 11:43 02/27/22 12:28 02/27/22 13:42 Temperature 99.8 F Pulse Rate 126 H 120 H Respiratory Rate 24 H 20 21 H Blood Pressure 110/77 Pulse Oximetry 78 L Oxygen Delivery Method Room Air 02/27/22 16:23 Temperature Pulse Rate Respiratory Rate 17 Blood Pressure Pulse Oximetry Oxygen Delivery Method BMI result Body Mass Index 32.4 <Kaylyn Valderrama NP - Last Filed: 02/27/22 17:19> Nursing notes and vital signs reviewed. GENERAL APPEARANCE: A&0 x 4, appears to be in respiratory distress with elevated respiratory rate HENMT: Normal to inspection, atraumatic, face symmetrical. Normal external ears, nose, and oropharynx clear. EYE: PERRLA, EOM intact, structures appear normal NECK: Supple without lymphadenopathy. No stiffness or restricted ROM. CHEST: Normal to inspection HEART: Regular rhythm, elevated rate, normal S1/S2, no M/R/G LUNGS: LS diminished throughout. Difficulty speaking in complete sentences. No crackles, wheezes, or rhonchi auscultated ABDOMEN: Soft, nontender, nondistended. Normal bowel sounds noted BACK: No CVAT, no obvious deformity EXTREMITIES: Moving all extremities without difficulty. No cyanosis, clubbing, or edema. Normal capillary refill. NEUROLOGICAL: Alert and oriented, moving all 4 extremities with equal strength. CN not formally tested but appearing grossly intact. Observed to ambulate with normal gait. Cognition normal SKIN: Warm and dry without any lesions, rash, or visible sores PSYCH: Cooperative, normal affect, normal thought process <Kaylyn Valderrama NP - Last Filed: 02/27/22 17:19> Course Course Course Narrative: RME: 56 yold female presents to the ED for 2 weeks of cough and SOB. 02 sat 78 percent on room air. Charge nurse made aware and patient transferred to main ED. labs, EKG, and meds ordered. Patient states pmh of CopD and asthma. <RAYNA Cat - Last Filed: 03/12/22 09:36> RME: 56 yold female presents to the ED for 2 weeks of cough and SOB. 02 sat 78 percent on room air. Charge nurse made aware and patient transferred to main ED. labs, EKG, and meds ordered. Patient states pmh of CopD and asthma. 1215: Pt on 5 L NC with SpO2 89%. Tachypneic and tachycardic without fever. Plan for extensive blood work including lactic acid and blood cultures. CXR, EKG, and ABG ordered. Plan for Duoneb, mag, and solumedrol. Ceftriaxone 2 gm to be given empirically as pt meets SIRS criteria. 1230: Pt with metabolic alkalosis with secondary respiratory alkalosis, plan for high flow. 1245: lactate 1.6, WBC 19.3 1630: Spoke with hospitalist regarding pt and need for admission. Hospitalist agreed with plan for admission. 1715: CTA negative for pulmonary embolism, dense consolidation in right lower and mid lobes with moderate volume right pleural effusion <Kaylyn Valderrama NP - Last Filed: 02/27/22 17:19> Medications Administered Discontinued Medications Generic Name Dose Route Start Last Admin Trade Name Freq PRN Reason Stop Dose Admin Acamprosate 666 mg 02/28/22 21:00 03/05/22 07:52 Acamprosate Calcium 333 Mg Tablet. PO 666 mg TID SINDI Administration Acetaminophen 650 mg 02/27/22 17:20 03/05/22 08:00 Acetaminophen 325 Mg Tablet PO 650 mg Q6H PRN Administration Pain, Mild (Pain Scale 1-3) Al Hydroxide/Mg Hydroxide 30 ml 03/02/22 09:25 03/03/22 21:09 Magnesium Hydrox/Alum Hydrox 30 Ml Oral.Susp PO 30 ml DAILY PRN Administration Constipation Amlodipine Besylate 5 mg 02/28/22 15:27 02/28/22 15:50 Amlodipine Besylate 5 Mg Tablet PO 02/28/22 15:28 5 mg ONCE ONE Administration Protocol Amlodipine Besylate 5 mg 03/02/22 09:00 03/05/22 07:54 Amlodipine Besylate 5 Mg Tablet PO 5 mg DAILY SINDI Administration Protocol Baclofen 10 mg 02/28/22 21:00 03/04/22 21:34 Baclofen 10 Mg Tablet PO 10 mg BEDTIME SINDI Administration Benzonatate 200 mg 02/28/22 06:40 03/02/22 20:11 Benzonatate 100 Mg Capsule PO 200 mg TID PRN Administration cough Cefuroxime Axetil 500 mg 03/04/22 16:30 03/05/22 05:39 Cefuroxime Axetil 500 Mg Tablet PO 500 mg Q12H SINDI Administration Clonazepam 1 mg 02/28/22 15:00 03/05/22 06:38 Clonazepam 1 Mg Tablet PO 1 mg TID SINDI Administration Albuterol Sulfate 2.5 mg/ 0 mg 02/27/22 11:47 02/27/22 12:28 Ipratropium Altus 0.5 mg INHALE 02/27/22 11:48 2.5 each ONCE ONE Administration Albuterol Sulfate 2.5 mg/ 0 mg 03/01/22 14:00 03/05/22 14:18 Ipratropium Altus 0.5 mg INHALE Not Given RQ6H WHILE AWAKE COUNTS INCLUDE 234 BEDS AT THE [facility] Docusate Sodium 200 mg 03/02/22 09:25 03/05/22 07:54 Docusate Sodium 100 Mg Capsule PO 200 mg DAILY SINDI Administration Fluticasone Propionate 1 spray 03/01/22 09:00 03/05/22 07:55 Fluticasone Propionate Nasal 16 Gm Hominy NOSTRIL-B 1 spray DAILY SINDI Administration Folic Acid 1 mg 03/01/22 09:00 03/05/22 07:54 Folic Acid 1 Mg Tablet PO 1 mg DAILY SINDI Administration Gabapentin 400 mg 02/28/22 21:00 03/05/22 07:53 Gabapentin 400 Mg Capsule PO 400 mg BID SINDI Administration Guaifenesin/Dextromethorphan 10 ml 03/01/22 15:00 03/05/22 07:52 Guaifenesin Dm 100/10/5 Ml 5 Ml Syrup PO 10 ml TID SINDI Administration Magnesium Sulfate 2 gm in 50 mls @ 25 mls/hr 02/27/22 11:47 02/27/22 14:22 Magnesium Sulfate/H2o IV 02/27/22 13:46 Infused ONCE ONE Infusion Ceftriaxone Sodium 2 gm/ 50 mls @ 100 mls/hr 02/27/22 12:18 02/27/22 16:15 Sodium Chloride IV 02/27/22 12:47 Infused ONCE ONE Infusion Azithromycin 500 mg/ Sodium 250 mls @ 125 mls/hr 02/27/22 13:58 02/28/22 01:13 Chloride IV 02/27/22 15:57 Infused ONCE ONE Infusion Ceftriaxone Sodium 1 gm/ 50 mls @ 100 mls/hr 02/28/22 14:00 03/04/22 14:40 Sodium Chloride IV Infused Q24H SINDI Infusion Azithromycin 500 mg/ Sodium 250 mls @ 125 mls/hr 02/28/22 16:00 03/04/22 16:02 Chloride IV Not Given Q24H SINDI Iohexol 100 ml 02/27/22 16:13 02/27/22 16:14 Iohexol 350 Mg/Ml 100 Ml Infus..Btl IV 02/27/22 16:14 65 ml ONCE ONE Administration Loratadine 10 mg 03/01/22 09:00 03/05/22 07:54 Loratadine 10 Mg Tablet PO 10 mg DAILY SINDI Administration Methylprednisolone Sodium Succinate 125 mg 02/27/22 11:47 02/27/22 12:18 Methylprednisolone Sod Succ 125 Mg/2 Ml Vial IVPUSH 02/27/22 11:48 125 mg ONCE ONE Administration Methylprednisolone Sodium Succinate 40 mg 02/27/22 20:00 03/01/22 03:16 Methylprednisolone Sod Succ 40 Mg/Ml Vial IVPUSH 40 mg Q8H SINDI Administration Methylprednisolone Sodium Succinate 40 mg 03/01/22 12:00 03/03/22 01:19 Methylprednisolone Sod Succ 40 Mg/Ml Vial IVPUSH 40 mg Q12H SINDI Administration Montelukast Sodium 10 mg 03/01/22 09:00 03/05/22 07:54 Montelukast Sodium 10 Mg Tablet PO 10 mg DAILY SINDI Administration Multivitamins/Vitamin C 1 tab 03/01/22 09:00 03/05/22 07:54 Multivitamin Tablet PO 1 tab DAILY SINDI Administration Naltrexone HCl 50 mg 03/01/22 09:00 03/05/22 07:53 Naltrexone Hcl 50 Mg Tablet PO 50 mg DAILY SINDI Administration Nicotine 14 mg 03/01/22 09:00 03/05/22 07:52 Nicotine 14 Mg Patch.Td24 TRANSDERMA 14 mg DAILY COUNTS INCLUDE 234 BEDS AT THE [facility] Administration Omeprazole 20 mg 02/28/22 16:30 03/05/22 05:39 Omeprazole 20 Mg Capsule.Dr PO 20 mg BID@6545,8825 COUNTS INCLUDE 234 BEDS AT THE [facility] Administration Oxycodone HCl 5 mg 02/27/22 17:20 03/02/22 09:10 Oxycodone Hcl Immed Release 5 Mg Tablet PO 5 mg Q6H PRN Administration Pain, Severe (Pain Scale 7-10) Prednisone 20 mg 03/04/22 09:00 03/05/22 07:53 Prednisone 20 Mg Tablet PO 20 mg DAILY SINDI Administration Sodium Chloride 3 ml 02/28/22 00:00 03/05/22 07:55 0.9 % Sodium Chloride Flush 3 Ml Syringe IVFLUSH Not Given QSHIFT COUNTS INCLUDE 234 BEDS AT THE [facility] Sodium Chloride 3 ml 02/28/22 00:00 03/05/22 08:56 0.9 % Sodium Chloride Flush 3 Ml Syringe IVFLUSH Not Given QSHIFT COUNTS INCLUDE 234 BEDS AT THE [facility] Thiamine HCl 100 mg 03/01/22 09:00 03/05/22 07:54 Thiamine Hcl 100 Mg Tablet PO 100 mg DAILY SINDI Administration Tramadol HCl 50 mg 03/02/22 20:01 03/02/22 20:10 Tramadol Hcl 50 Mg Tablet PO 50 mg ONCE PRN Administration Pain, Moderate (Pain Scale 4-6 Tramadol HCl 50 mg 03/03/22 20:53 03/04/22 21:40 Tramadol Hcl 50 Mg Tablet PO 50 mg Q6H PRN Administration Pain, Moderate (Pain Scale 4-6 Vortioxetine 10 mg 03/01/22 09:00 03/05/22 07:53 Vortioxetine Hydrobromide 10 Mg Tablet PO 10 mg DAILY COUNTS INCLUDE 234 BEDS AT THE [facility] Administration <RAYNA Cat - Last Filed: 03/12/22 09:36> Medications Administered Discontinued Medications Generic Name Dose Route Start Last Admin Trade Name Freq PRN Reason Stop Dose Admin Acamprosate 666 mg 02/28/22 21:00 03/05/22 07:52 Acamprosate Calcium 333 Mg Tablet. PO 666 mg TID SINDI Administration Acetaminophen 650 mg 02/27/22 17:20 03/05/22 08:00 Acetaminophen 325 Mg Tablet PO 650 mg Q6H PRN Administration Pain, Mild (Pain Scale 1-3) Al Hydroxide/Mg Hydroxide 30 ml 03/02/22 09:25 03/03/22 21:09 Magnesium Hydrox/Alum Hydrox 30 Ml Oral.Susp PO 30 ml DAILY PRN Administration Constipation Amlodipine Besylate 5 mg 02/28/22 15:27 02/28/22 15:50 Amlodipine Besylate 5 Mg Tablet PO 02/28/22 15:28 5 mg ONCE ONE Administration Protocol Amlodipine Besylate 5 mg 03/02/22 09:00 03/05/22 07:54 Amlodipine Besylate 5 Mg Tablet PO 5 mg DAILY COUNTS INCLUDE 234 BEDS AT THE [facility] Administration Protocol Baclofen 10 mg 02/28/22 21:00 03/04/22 21:34 Baclofen 10 Mg Tablet PO 10 mg BEDTIME SINDI Administration Benzonatate 200 mg 02/28/22 06:40 03/02/22 20:11 Benzonatate 100 Mg Capsule PO 200 mg TID PRN Administration cough Cefuroxime Axetil 500 mg 03/04/22 16:30 03/05/22 05:39 Cefuroxime Axetil 500 Mg Tablet PO 500 mg Q12H SINDI Administration Clonazepam 1 mg 02/28/22 15:00 03/05/22 06:38 Clonazepam 1 Mg Tablet PO 1 mg TID SINDI Administration Albuterol Sulfate 2.5 mg/ 0 mg 02/27/22 11:47 02/27/22 12:28 Ipratropium Altus 0.5 mg INHALE 02/27/22 11:48 2.5 each ONCE ONE Administration Albuterol Sulfate 2.5 mg/ 0 mg 03/01/22 14:00 03/05/22 14:18 Ipratropium Altus 0.5 mg INHALE Not Given RQ6H WHILE AWAKE COUNTS INCLUDE 234 BEDS AT THE [facility] Docusate Sodium 200 mg 03/02/22 09:25 03/05/22 07:54 Docusate Sodium 100 Mg Capsule PO 200 mg DAILY SINDI Administration Fluticasone Propionate 1 spray 03/01/22 09:00 03/05/22 07:55 Fluticasone Propionate Nasal 16 Gm Hominy NOSTRIL-B 1 spray DAILY COUNTS INCLUDE 234 BEDS AT THE [facility] Administration Folic Acid 1 mg 03/01/22 09:00 03/05/22 07:54 Folic Acid 1 Mg Tablet PO 1 mg DAILY SINDI Administration Gabapentin 400 mg 02/28/22 21:00 03/05/22 07:53 Gabapentin 400 Mg Capsule PO 400 mg BID SINDI Administration Guaifenesin/Dextromethorphan 10 ml 03/01/22 15:00 03/05/22 07:52 Guaifenesin Dm 100/10/5 Ml 5 Ml Syrup PO 10 ml TID SINDI Administration Magnesium Sulfate 2 gm in 50 mls @ 25 mls/hr 02/27/22 11:47 02/27/22 14:22 Magnesium Sulfate/H2o IV 02/27/22 13:46 Infused ONCE ONE Infusion Ceftriaxone Sodium 2 gm/ 50 mls @ 100 mls/hr 02/27/22 12:18 02/27/22 16:15 Sodium Chloride IV 02/27/22 12:47 Infused ONCE ONE Infusion Azithromycin 500 mg/ Sodium 250 mls @ 125 mls/hr 02/27/22 13:58 02/28/22 01:13 Chloride IV 02/27/22 15:57 Infused ONCE ONE Infusion Ceftriaxone Sodium 1 gm/ 50 mls @ 100 mls/hr 02/28/22 14:00 03/04/22 14:40 Sodium Chloride IV Infused Q24H SINDI Infusion Azithromycin 500 mg/ Sodium 250 mls @ 125 mls/hr 02/28/22 16:00 03/04/22 16:02 Chloride IV Not Given Q24H SINDI Iohexol 100 ml 02/27/22 16:13 02/27/22 16:14 Iohexol 350 Mg/Ml 100 Ml Infus..Btl IV 02/27/22 16:14 65 ml ONCE ONE Administration Loratadine 10 mg 03/01/22 09:00 03/05/22 07:54 Loratadine 10 Mg Tablet PO 10 mg DAILY SINDI Administration Methylprednisolone Sodium Succinate 125 mg 02/27/22 11:47 02/27/22 12:18 Methylprednisolone Sod Succ 125 Mg/2 Ml Vial IVPUSH 02/27/22 11:48 125 mg ONCE ONE Administration Methylprednisolone Sodium Succinate 40 mg 02/27/22 20:00 03/01/22 03:16 Methylprednisolone Sod Succ 40 Mg/Ml Vial IVPUSH 40 mg Q8H SINDI Administration Methylprednisolone Sodium Succinate 40 mg 03/01/22 12:00 03/03/22 01:19 Methylprednisolone Sod Succ 40 Mg/Ml Vial IVPUSH 40 mg Q12H SINDI Administration Montelukast Sodium 10 mg 03/01/22 09:00 03/05/22 07:54 Montelukast Sodium 10 Mg Tablet PO 10 mg DAILY SINDI Administration Multivitamins/Vitamin C 1 tab 03/01/22 09:00 03/05/22 07:54 Multivitamin Tablet PO 1 tab DAILY SINDI Administration Naltrexone HCl 50 mg 03/01/22 09:00 03/05/22 07:53 Naltrexone Hcl 50 Mg Tablet PO 50 mg DAILY SINDI Administration Nicotine 14 mg 03/01/22 09:00 03/05/22 07:52 Nicotine 14 Mg Patch.Td24 TRANSDERMA 14 mg DAILY SINDI Administration Omeprazole 20 mg 02/28/22 16:30 03/05/22 05:39 Omeprazole 20 Mg Capsule.Dr PO 20 mg BID@0630,1630 SINDI Administration Oxycodone HCl 5 mg 02/27/22 17:20 03/02/22 09:10 Oxycodone Hcl Immed Release 5 Mg Tablet PO 5 mg Q6H PRN Administration Pain, Severe (Pain Scale 7-10) Prednisone 20 mg 03/04/22 09:00 03/05/22 07:53 Prednisone 20 Mg Tablet PO 20 mg DAILY SINDI Administration Sodium Chloride 3 ml 02/28/22 00:00 03/05/22 07:55 0.9 % Sodium Chloride Flush 3 Ml Syringe IVFLUSH Not Given QSHIFT SINDI Sodium Chloride 3 ml 02/28/22 00:00 03/05/22 08:56 0.9 % Sodium Chloride Flush 3 Ml Syringe IVFLUSH Not Given QSHIFT SINDI Thiamine HCl 100 mg 03/01/22 09:00 03/05/22 07:54 Thiamine Hcl 100 Mg Tablet PO 100 mg DAILY SINDI Administration Tramadol HCl 50 mg 03/02/22 20:01 03/02/22 20:10 Tramadol Hcl 50 Mg Tablet PO 50 mg ONCE PRN Administration Pain, Moderate (Pain Scale 4-6 Tramadol HCl 50 mg 03/03/22 20:53 03/04/22 21:40 Tramadol Hcl 50 Mg Tablet PO 50 mg Q6H PRN Administration Pain, Moderate (Pain Scale 4-6 Vortioxetine 10 mg 03/01/22 09:00 03/05/22 07:53 Vortioxetine Hydrobromide 10 Mg Tablet PO 10 mg DAILY SINDI Administration <Kaylyn Valderrama [employer] - Last Filed: 02/27/22 17:19> Medical Decision Making Medical Decision Making MDM Narrative: 56-year-old female a past medical history of COPD, asthma, several year smoking history, pneumonia 08/22/21, and Covid diagnosis > 2 weeks ago presents the emergency department for complaints of a 2 week history of fever, cough, and difficulty breathing. On initial survey pt meets SIRS criteria with RR 24, HR 120s, and WBC 19.3, with remaining blood work essentially unremarkable. Blood cultures drawn and pending. Lactate negative at 1.6. Ceftriaxone and azithromycin given as antibiotic coverage. DuoNeb, IV Solu-Medrol, and 2 g IV Mag given for treatment of respiratory distress with moderate effect. ABG showing metabolic alkalosis with secondary respiratory alkalosis. Patient placed on high-flow nasal cannula and tolerating well with SpO2 90 to 92%. serology negative for RSV, flu, COVID-19. EKG appears nonischemic, sinus tachycardia with new septal infarct Compared to last EKG done in August 2021. Chest x-ray showing right lower lobe consolidation and new pleural effusion compared to last chest x-ray done in August 2021. CTA chest completed pending read to rule out PE. HPI, physical exam, and diagnostic consistent with pneumonia. Plan for inpatient admission for further treatment and management. HPI, PE, diagnostics, and plan discussed with patient and family with pt in agreement with plan and no unanswered questions at this time. Patient educated to return to the emergency department with new, worsening, or concerning emergent symptoms. Recommended to follow-up with her primary care provider for further treatment and management. *Refer to Course for additional information on consultations, diagnostic interpretation, consultations, emergency department stay, conversations with patient and family, shared decision making with patient, and more information on medical decision making* <Kaylyn Valderrama NP - Last Filed: 02/27/22 17:19> Admission/Observation Consideration of admission/observation: Escalation of care including admission/observation considered (plan for hospital admission) <Kaylyn Valderrama NP - Last Filed: 02/27/22 17:19> Consult Healthcare Provider Management of the patient was discussed with: Hospitalist (Deisy Stout) <Kaylyn Valderrama NP - Last Filed: 02/27/22 17:19> Lab Data MDM Lab Attestation statement: I reviewed the patient's lab results. <Kaylyn Valderrama NP - Last Filed: 02/27/22 17:19> Result Diagrams: 02/27/22 12:06 02/27/22 12:06 <RAYNA Cat - Last Filed: 03/12/22 09:36> Labs: Lab Results 02/27/22 02/27/22 02/27/22 Range/Units 12:06 12:06 12:06 WBC 19.3 H (4.8-10.8) X10*3/uL RBC 3.99 L (4.20-5.50) X10*6/uL Hgb 12.2 (12.0-16.0) g/dl Hct 38.5 (37.0-47.0) % MCV 96.5 (80.0-98.0) fL MCH 30.6 (27.0-33.0) pg MCHC 31.7 (31.0-35.0) g/dl RDW 13.9 (11.0-16.0) % Plt Count 645 H D (160-400) X10*3/uL MPV 9.5 (9.4-12.3) fL Immature Gran % (Auto) 1.0 H (0.0-0.4) % Neut % (Auto) 83.1 H (45-73) % Lymph % (Auto) 11.2 L (20-40) % Jennings % (Auto) 4.2 (2-11) % Eos % (Auto) 0.1 (0-4) % Baso % (Auto) 0.4 (0-2) % Lymph # (Auto) 2.2 (1.2-4.9) X10*3/uL Jennings # (Auto) 0.8 (0.1-1.2) X10*3/uL Eos # (Auto) 0.0 (0.0-0.4) X10*3/uL Baso # (Auto) 0.1 (0.0-0.2) X10*3/uL Abs Immat Gran (auto) 0.20 H (0.00-0.03) X10*3/uL Absolute Neuts (auto) 16.0 H (2.0-8.3) x10*3/uL Absolute Nucleated RBC 0.030 H (0.0-0.012) X10*3/uL Nucleated RBC % (auto) 0.2 (0.0-0.2) /100WBC PT (10.0-13.1) SEC INR (0.9-1.1) APTT (26.0-36.4) SEC O2 Saturation % ABG pH at Pt Temp (7.35-7.45) ABG pCO2 at Pt Temp (32-45) mmHg ABG pO2 at Pt Temp (83-108) mmHg ABG HCO3 (22-26) mmol/L ABG Base Excess (Actual) mmol/L Sodium (135-145) mmol/L Potassium (3.3-5.1) mmol/L Chloride (96-108) mmol/L Carbon Dioxide (22-29) mmol/L Anion Gap (12-20) BUN (9-16) mg/dL Creatinine (0.5-1.4) mg/dL Estim Creat Clear Calc Estimated GFR Random Glucose (60-115) mg/dL Lactic Acid (0.5-2.0) mmol/L Calcium (8.4-10.2) mg/dL Total Bilirubin (0.0-1.0) mg/dL AST (5-31) U/L ALT (0-31) U/L Alkaline Phosphatase (39-117) U/L Troponin I High Sens < 3.5 (<3.5-17.0) ng/L B-Natriuretic Peptide (<100) pg/mL Total Protein (6.5-8.0) g/dL Albumin (3.5-5.0) g/dL Influenza Type A (PCR) NEGATIVE (Negative) Influenza Type B (PCR) NEGATIVE (Negative) RSV RNA Qual (PCR) NEGATIVE (Negative) SARS-CoV-2 RNA (RT-PCR) NEGATIVE (Negative) 02/27/22 02/27/22 02/27/22 Range/Units 12:06 12:06 12:06 WBC (4.8-10.8) X10*3/uL RBC (4.20-5.50) X10*6/uL Hgb (12.0-16.0) g/dl Hct (37.0-47.0) % MCV (80.0-98.0) fL MCH (27.0-33.0) pg MCHC (31.0-35.0) g/dl RDW (11.0-16.0) % Plt Count (160-400) X10*3/uL MPV (9.4-12.3) fL Immature Gran % (Auto) (0.0-0.4) % Neut % (Auto) (45-73) % Lymph % (Auto) (20-40) % Jennings % (Auto) (2-11) % Eos % (Auto) (0-4) % Baso % (Auto) (0-2) % Lymph # (Auto) (1.2-4.9) X10*3/uL Jennings # (Auto) (0.1-1.2) X10*3/uL Eos # (Auto) (0.0-0.4) X10*3/uL Baso # (Auto) (0.0-0.2) X10*3/uL Abs Immat Gran (auto) (0.00-0.03) X10*3/uL Absolute Neuts (auto) (2.0-8.3) x10*3/uL Absolute Nucleated RBC (0.0-0.012) X10*3/uL Nucleated RBC % (auto) (0.0-0.2) /100WBC PT 13.5 H (10.0-13.1) SEC INR 1.2 H (0.9-1.1) APTT 30.3 (26.0-36.4) SEC O2 Saturation % ABG pH at Pt Temp (7.35-7.45) ABG pCO2 at Pt Temp (32-45) mmHg ABG pO2 at Pt Temp (83-108) mmHg ABG HCO3 (22-26) mmol/L ABG Base Excess (Actual) mmol/L Sodium (135-145) mmol/L Potassium (3.3-5.1) mmol/L Chloride (96-108) mmol/L Carbon Dioxide (22-29) mmol/L Anion Gap (12-20) BUN (9-16) mg/dL Creatinine (0.5-1.4) mg/dL Estim Creat Clear Calc Estimated GFR Random Glucose (60-115) mg/dL Lactic Acid 1.6 (0.5-2.0) mmol/L Calcium (8.4-10.2) mg/dL Total Bilirubin (0.0-1.0) mg/dL AST (5-31) U/L ALT (0-31) U/L Alkaline Phosphatase (39-117) U/L Troponin I High Sens (<3.5-17.0) ng/L B-Natriuretic Peptide 93 (<100) pg/mL Total Protein (6.5-8.0) g/dL Albumin (3.5-5.0) g/dL Influenza Type A (PCR) (Negative) Influenza Type B (PCR) (Negative) RSV RNA Qual (PCR) (Negative) SARS-CoV-2 RNA (RT-PCR) (Negative) 02/27/22 02/27/22 Range/Units 12:29 14:42 WBC (4.8-10.8) X10*3/uL RBC (4.20-5.50) X10*6/uL Hgb (12.0-16.0) g/dl Hct (37.0-47.0) % MCV (80.0-98.0) fL MCH (27.0-33.0) pg MCHC (31.0-35.0) g/dl RDW (11.0-16.0) % Plt Count (160-400) X10*3/uL MPV (9.4-12.3) fL Immature Gran % (Auto) (0.0-0.4) % Neut % (Auto) (45-73) % Lymph % (Auto) (20-40) % Jennings % (Auto) (2-11) % Eos % (Auto) (0-4) % Baso % (Auto) (0-2) % Lymph # (Auto) (1.2-4.9) X10*3/uL Jennings # (Auto) (0.1-1.2) X10*3/uL Eos # (Auto) (0.0-0.4) X10*3/uL Baso # (Auto) (0.0-0.2) X10*3/uL Abs Immat Gran (auto) (0.00-0.03) X10*3/uL Absolute Neuts (auto) (2.0-8.3) x10*3/uL Absolute Nucleated RBC (0.0-0.012) X10*3/uL Nucleated RBC % (auto) (0.0-0.2) /100WBC PT (10.0-13.1) SEC INR (0.9-1.1) APTT (26.0-36.4) SEC O2 Saturation 91.0 % ABG pH at Pt Temp 7.49 H (7.35-7.45) ABG pCO2 at Pt Temp 53 H (32-45) mmHg ABG pO2 at Pt Temp 64 L (83-108) mmHg ABG HCO3 41 H (22-26) mmol/L ABG Base Excess (Actual) 16.0 mmol/L Sodium 138 (135-145) mmol/L Potassium 5.0 (3.3-5.1) mmol/L Chloride 97 (96-108) mmol/L Carbon Dioxide 31 H (22-29) mmol/L Anion Gap 15 (12-20) BUN 13 (9-16) mg/dL Creatinine 0.80 (0.5-1.4) mg/dL Estim Creat Clear Calc 84.2 Estimated GFR > 60 Random Glucose 118 H (60-115) mg/dL Lactic Acid (0.5-2.0) mmol/L Calcium 8.5 D (8.4-10.2) mg/dL Total Bilirubin 0.9 (0.0-1.0) mg/dL AST 16 (5-31) U/L ALT 70 H (0-31) U/L Alkaline Phosphatase 381 H (39-117) U/L Troponin I High Sens (<3.5-17.0) ng/L B-Natriuretic Peptide (<100) pg/mL Total Protein 5.8 L (6.5-8.0) g/dL Albumin 2.6 L (3.5-5.0) g/dL Influenza Type A (PCR) (Negative) Influenza Type B (PCR) (Negative) RSV RNA Qual (PCR) (Negative) SARS-CoV-2 RNA (RT-PCR) (Negative) <RAYNA Cat - Last Filed: 03/12/22 09:36> Lab Results 02/27/22 02/27/22 02/27/22 Range/Units 12:06 12:06 12:06 WBC 19.3 H (4.8-10.8) X10*3/uL RBC 3.99 L (4.20-5.50) X10*6/uL Hgb 12.2 (12.0-16.0) g/dl Hct 38.5 (37.0-47.0) % MCV 96.5 (80.0-98.0) fL MCH 30.6 (27.0-33.0) pg MCHC 31.7 (31.0-35.0) g/dl RDW 13.9 (11.0-16.0) % Plt Count 645 H D (160-400) X10*3/uL MPV 9.5 (9.4-12.3) fL Immature Gran % (Auto) 1.0 H (0.0-0.4) % Neut % (Auto) 83.1 H (45-73) % Lymph % (Auto) 11.2 L (20-40) % Jennings % (Auto) 4.2 (2-11) % Eos % (Auto) 0.1 (0-4) % Baso % (Auto) 0.4 (0-2) % Lymph # (Auto) 2.2 (1.2-4.9) X10*3/uL Jennings # (Auto) 0.8 (0.1-1.2) X10*3/uL Eos # (Auto) 0.0 (0.0-0.4) X10*3/uL Baso # (Auto) 0.1 (0.0-0.2) X10*3/uL Abs Immat Gran (auto) 0.20 H (0.00-0.03) X10*3/uL Absolute Neuts (auto) 16.0 H (2.0-8.3) x10*3/uL Absolute Nucleated RBC 0.030 H (0.0-0.012) X10*3/uL Nucleated RBC % (auto) 0.2 (0.0-0.2) /100WBC PT (10.0-13.1) SEC INR (0.9-1.1) APTT (26.0-36.4) SEC O2 Saturation % ABG pH at Pt Temp (7.35-7.45) ABG pCO2 at Pt Temp (32-45) mmHg ABG pO2 at Pt Temp (83-108) mmHg ABG HCO3 (22-26) mmol/L ABG Base Excess (Actual) mmol/L Sodium (135-145) mmol/L Potassium (3.3-5.1) mmol/L Chloride (96-108) mmol/L Carbon Dioxide (22-29) mmol/L Anion Gap (12-20) BUN (9-16) mg/dL Creatinine (0.5-1.4) mg/dL Estim Creat Clear Calc Estimated GFR Random Glucose (60-115) mg/dL Lactic Acid (0.5-2.0) mmol/L Calcium (8.4-10.2) mg/dL Total Bilirubin (0.0-1.0) mg/dL AST (5-31) U/L ALT (0-31) U/L Alkaline Phosphatase (39-117) U/L Troponin I High Sens < 3.5 (<3.5-17.0) ng/L B-Natriuretic Peptide (<100) pg/mL Total Protein (6.5-8.0) g/dL Albumin (3.5-5.0) g/dL Influenza Type A (PCR) NEGATIVE (Negative) Influenza Type B (PCR) NEGATIVE (Negative) RSV RNA Qual (PCR) NEGATIVE (Negative) SARS-CoV-2 RNA (RT-PCR) NEGATIVE (Negative) 02/27/22 02/27/22 02/27/22 Range/Units 12:06 12:06 12:06 WBC (4.8-10.8) X10*3/uL RBC (4.20-5.50) X10*6/uL Hgb (12.0-16.0) g/dl Hct (37.0-47.0) % MCV (80.0-98.0) fL MCH (27.0-33.0) pg MCHC (31.0-35.0) g/dl RDW (11.0-16.0) % Plt Count (160-400) X10*3/uL MPV (9.4-12.3) fL Immature Gran % (Auto) (0.0-0.4) % Neut % (Auto) (45-73) % Lymph % (Auto) (20-40) % Jennings % (Auto) (2-11) % Eos % (Auto) (0-4) % Baso % (Auto) (0-2) % Lymph # (Auto) (1.2-4.9) X10*3/uL Jennings # (Auto) (0.1-1.2) X10*3/uL Eos # (Auto) (0.0-0.4) X10*3/uL Baso # (Auto) (0.0-0.2) X10*3/uL Abs Immat Gran (auto) (0.00-0.03) X10*3/uL Absolute Neuts (auto) (2.0-8.3) x10*3/uL Absolute Nucleated RBC (0.0-0.012) X10*3/uL Nucleated RBC % (auto) (0.0-0.2) /100WBC PT 13.5 H (10.0-13.1) SEC INR 1.2 H (0.9-1.1) APTT 30.3 (26.0-36.4) SEC O2 Saturation % ABG pH at Pt Temp (7.35-7.45) ABG pCO2 at Pt Temp (32-45) mmHg ABG pO2 at Pt Temp (83-108) mmHg ABG HCO3 (22-26) mmol/L ABG Base Excess (Actual) mmol/L Sodium (135-145) mmol/L Potassium (3.3-5.1) mmol/L Chloride (96-108) mmol/L Carbon Dioxide (22-29) mmol/L Anion Gap (12-20) BUN (9-16) mg/dL Creatinine (0.5-1.4) mg/dL Estim Creat Clear Calc Estimated GFR Random Glucose (60-115) mg/dL Lactic Acid 1.6 (0.5-2.0) mmol/L Calcium (8.4-10.2) mg/dL Total Bilirubin (0.0-1.0) mg/dL AST (5-31) U/L ALT (0-31) U/L Alkaline Phosphatase (39-117) U/L Troponin I High Sens (<3.5-17.0) ng/L B-Natriuretic Peptide 93 (<100) pg/mL Total Protein (6.5-8.0) g/dL Albumin (3.5-5.0) g/dL Influenza Type A (PCR) (Negative) Influenza Type B (PCR) (Negative) RSV RNA Qual (PCR) (Negative) SARS-CoV-2 RNA (RT-PCR) (Negative) 02/27/22 02/27/22 Range/Units 12:29 14:42 WBC (4.8-10.8) X10*3/uL RBC (4.20-5.50) X10*6/uL Hgb (12.0-16.0) g/dl Hct (37.0-47.0) % MCV (80.0-98.0) fL MCH (27.0-33.0) pg MCHC (31.0-35.0) g/dl RDW (11.0-16.0) % Plt Count (160-400) X10*3/uL MPV (9.4-12.3) fL Immature Gran % (Auto) (0.0-0.4) % Neut % (Auto) (45-73) % Lymph % (Auto) (20-40) % Jennings % (Auto) (2-11) % Eos % (Auto) (0-4) % Baso % (Auto) (0-2) % Lymph # (Auto) (1.2-4.9) X10*3/uL Jennings # (Auto) (0.1-1.2) X10*3/uL Eos # (Auto) (0.0-0.4) X10*3/uL Baso # (Auto) (0.0-0.2) X10*3/uL Abs Immat Gran (auto) (0.00-0.03) X10*3/uL Absolute Neuts (auto) (2.0-8.3) x10*3/uL Absolute Nucleated RBC (0.0-0.012) X10*3/uL Nucleated RBC % (auto) (0.0-0.2) /100WBC PT (10.0-13.1) SEC INR (0.9-1.1) APTT (26.0-36.4) SEC O2 Saturation 91.0 % ABG pH at Pt Temp 7.49 H (7.35-7.45) ABG pCO2 at Pt Temp 53 H (32-45) mmHg ABG pO2 at Pt Temp 64 L (83-108) mmHg ABG HCO3 41 H (22-26) mmol/L ABG Base Excess (Actual) 16.0 mmol/L Sodium 138 (135-145) mmol/L Potassium 5.0 (3.3-5.1) mmol/L Chloride 97 (96-108) mmol/L Carbon Dioxide 31 H (22-29) mmol/L Anion Gap 15 (12-20) BUN 13 (9-16) mg/dL Creatinine 0.80 (0.5-1.4) mg/dL Estim Creat Clear Calc 84.2 Estimated GFR > 60 Random Glucose 118 H (60-115) mg/dL Lactic Acid (0.5-2.0) mmol/L Calcium 8.5 D (8.4-10.2) mg/dL Total Bilirubin 0.9 (0.0-1.0) mg/dL AST 16 (5-31) U/L ALT 70 H (0-31) U/L Alkaline Phosphatase 381 H (39-117) U/L Troponin I High Sens (<3.5-17.0) ng/L B-Natriuretic Peptide (<100) pg/mL Total Protein 5.8 L (6.5-8.0) g/dL Albumin 2.6 L (3.5-5.0) g/dL Influenza Type A (PCR) (Negative) Influenza Type B (PCR) (Negative) RSV RNA Qual (PCR) (Negative) SARS-CoV-2 RNA (RT-PCR) (Negative) <Kaylyn Valderrama NP - Last Filed: 02/27/22 17:19> ABG Data Attestation ABG: I personally reviewed and interpreted this ABG as follows: <Kaylyn Valderrama NP - Last Filed: 02/27/22 17:19> Interpretation: Metabolic alkalosis with secondary respiratory alkalosis <Kaylyn Valderrama NP - Last Filed: 02/27/22 17:19> Independent Interpretation I performed an independent interpretation of an: EKG <Kaylyn Valderrama NP - Last Filed: 02/27/22 17:19> Interpretation: I have independently reviewed the EKG showing sinus tach with septal infarct now present compared to EKG done on 08/31/2021. EKG appears nonischemic. Vent. Rate : 115 BPM ? ? Atrial Rate : 115 BPM ?? P-R Int : 122 ms? QRS Dur : 066 ms ? ? QT Int : 290 ms ? ? ? P-R-T Axes : 034 003 054 degrees ?? QTc Int : 401 ms ? Sinus tachycardia Low voltage QRS Septal infarct , age undetermined Abnormal ECG When compared with ECG of 31-AUG-2021 08:13, Septal infarct is now Present <Kaylyn Valderrama NP - Last Filed: 02/27/22 17:19> Radiology Impression Discussion of test interpretation with radiology: I have reviewed the radiologist's reading. <Kaylyn Valderrama NP - Last Filed: 02/27/22 17:19> Radiologist Impression: I have independently reviewed the chest x-ray showing right base with consolidation and new pleural effusion when compared to chest x-ray done in August 2021. EXAMINATION: XR CHEST CLINICAL INFORMATION: Cough with yellow phlegm. COMPARISON: CTA chest August 2021. Chest x-ray August 2021. TECHNIQUE: 2 views of the chest were obtained. FINDINGS: There is opacification at the right base compatible with a pleural effusion likely concomitant consolidation. Lungs otherwise clear. Cardiac mediastinal silhouette normal. Bone and soft tissues unremarkable. XR/XR chest 2V IMPRESSION: Opacification at the right base compatible with a pleural effusion and likely concomitant consolidation. Consolidation is noted on the prior imaging examinations August 2021 but without effusion ? Dictated By: Deacon Colon MD Signed By: <Electronically signed by Deacon Colon MD in [facility]> 02/27/22 1352 DD/ 1310 TD/TT:? Human Services Supervisor: WG I have independently reviewed CTA and negative for pulmonary embolism. CTA showing dense consolidation in right lower and mid lobes with moderate volume right pleural effusion EXAMINATION: CT ANGIOGRAM OF THE CHEST WITH AND WITHOUT CONTRAST (CT PULMONARY ANGIOGRAM FOR PE) CLINICAL INFORMATION: Reason for Exam shortness of breath COMPARISON: Chest x-ray 02/27/2022. CT of chest 08/22/2021? TECHNIQUE: Prior to contrast administration, noncontrast localization images were obtained. ? Subsequently, multidetector volumetric imaging was performed from the thoracic inlet to below the diaphragms following the administration of 65 mL Omnipaque 350 intravenous contrast. No contrast reaction reported Sagittal, coronal, and MIP oblique sagittal reformatted images were obtained on the CT workstation, uploaded to PACS, and reviewed. This CT examination was performed using dose optimization techniques as appropriate, variously including the following: *Automated exposure control *Adjustment of mA and/or kV according to patient size (this includes techniques or standardized protocols for targeted exams where dose is matched to indication/reason for exam; i.e. extremities or head) *Use of iterative reconstruction technique Total exam dose-length product 465 mGy-cm FINDINGS: QUALITY OF STUDY/CONTRAST BOLUS: Satisfactory. PULMONARY ARTERIES: No central or segmental pulmonary emboli.? THORACIC AORTA: No aneurysm or dissection. LUNG: Dense consolidation with air bronchograms involving the right lower lobe middle lobe. There are a few small scattered areas of parenchymal stranding and patchy airspace opacities in the left lung. PLEURA: Moderate volume right pleural effusion. No significant left pleural effusion. MEDIASTINUM: Heart size is mildly prominent. No pericardial effusion. No evidence of septal bowing or right heart strain. No significant lymphadenopathy. CORONARY ARTERY CALCIFICATION: None visualized on this study. CHEST WALL/AXILLA: No axillary or internal mammary lymphadenopathy. OSSEOUS STRUCTURES: No acute or suspicious osseous abnormality.? UPPER ABDOMEN: Unremarkable.? No reflux of contrast into the hepatic veins to suggest elevated right heart pressures. CT/CT angio chest PE protocol IMPRESSION: 1.? No evidence of pulmonary embolism. 2.? Dense consolidation involving the right lower lobe and middle lobe with moderate volume right pleural effusion. 3.? There are a few scattered areas of parenchymal stranding and patchy airspace opacities in the left lung. ? VTE: negative Dictated By: Shiv Nelson MD Signed By: <Electronically signed by Shiv Nelson MD in [facility]> 02/27/22 1700 DD/ 1616 TD/TT:? Human Services Supervisor: GILDA <Kaylyn Valderrama NP - Last Filed: 02/27/22 17:19> Discharge Plan Discharge Clinical Impression: Pneumonia <RAYNA Cat - Last Filed: 03/12/22 09:36> Patient Disposition: Admitted As Inpatient <RAYNA Cat - Last Filed: 03/12/22 09:36> Discharge Date/Time: 02/28/22 02:07 <RAYNA Cat - Last Filed: 03/12/22 09:36>
--- NOTE | 2022-02-27 11:50 | ECG_ITS ---
Test Reason : DYSPNEA Blood Pressure : / mmHG Vent. Rate : 115 BPM Atrial Rate : 115 BPM P-R Int : 122 ms QRS Dur : 066 ms QT Int : 290 ms P-R-T Axes : 034 003 054 degrees QTc Int : 401 ms Sinus tachycardia Low voltage QRS Septal infarct , age undetermined Abnormal ECG When compared with ECG of 31-AUG-2021 08:13, Septal infarct is now Present Referred By: Francisco Granda Electronically Signed By:JORGE ALBERTO WHITTINGTON MD
--- NOTE | 2022-02-27 11:50 | PC.NURSE ---
PLACED ON NC IN TRIAGE- 90% ON 4 L
[2022-02-27 12:12] LABS: MANUAL DIFF FLAG NO
[2022-02-27 12:16] LABS: Basophils Absolute Auto 0.1 X10*3/uL (0.0-0.2); Basophils Percent Auto 0.4 % (0-2); Eosinophils Percent Auto 0.1 % (0-4); Hematocrit 38.5 % (37.0-47.0); Hemoglobin 12.2 g/dl (12.0-16.0); Lymphocytes Absolute Auto 2.2 X10*3/uL (1.2-4.9); Lymphocytes Percent Auto 11.2 % (20-40); Mean Corpuscular HGB Conc 31.7 g/dl (31.0-35.0); Mean Corpuscular Hemoglobin 30.6 pg (27.0-33.0); Mean Corpuscular Volume 96.5 fL (80.0-98.0); Mean Platelet Volume 9.5 fL (9.4-12.3); Monocytes Absolute Auto 0.8 X10*3/uL (0.1-1.2); Monocytes Percent Auto 4.2 % (2-11); NRBC Pct Auto 0.2 /100WBC (0.0-0.2); Neutrophils Percent Auto 83.1 % (45-73); Red Blood Count 3.99 X10*6/uL (4.20-5.50); Red Cell Distribution Width 13.9 % (11.0-16.0)
[2022-02-27] MEDS: Magnesium Sulfate/H2O 2 GM/50 ML PIGGYBACK IV (12:18)
[2022-02-27] MEDS: methylPREDNISolone Sod Succ 125 MG/2 ML VIAL IVPUSH (12:18)
[2022-02-27 12:27] LABS: INTERNATIONAL NORM RATIO 1.2 (0.9-1.1); Prothrombin Time 13.5 SEC (10.0-13.1)
[2022-02-27 12:29] LABS: Lactic Acid 1.6 mmol/L (0.5-2.0)
[2022-02-27 12:30] LABS: Partial Thromboplastin Time 30.3 SEC (26.0-36.4)
--- NOTE | 2022-02-27 12:34 | PC.NURSE ---
Respiratory at bedside. IV established, labs drawn and sent.
[2022-02-27 12:38] LABS: ABG HCO3 41 mmol/L (22-26); ABG pCO2 53 mmHg (32-45); ABG pH 7.49 (7.35-7.45); ABG pO2 64 mmHg (83-108)
[2022-02-27 12:44] LABS: B Type Natriuretic Peptide 93 pg/mL (<100); Troponin-I High Sensitivity < 3.5 ng/L (<3.5-17.0)
[2022-02-27 12:45] LABS: White Blood Count 19.3 X10*3/uL (4.8-10.8)
[2022-02-27 13:04] LABS: Influenza A PCR NEGATIVE (Negative); Influenza B PCR NEGATIVE (Negative); Resp Syncy Virus RNA Qual PCR NEGATIVE (Negative); SARS COV2 PCR INHOUSE NEGATIVE (Negative)
[2022-02-27 13:10] LABS: Platelet Count 645 X10*3/uL (160-400)
[2022-02-27] MEDS: cefTRIAXone sodium 2 GM in 0.9 % Sodium Chloride 50 ML IV (14:14)
[2022-02-27 15:12] LABS: Alanine Aminotransferase 70 U/L (0-31); Albumin Level 2.6 g/dL (3.5-5.0); Alkaline Phosphatase 381 U/L (39-117); Anion Gap 15 (12-20); Aspartate Amino Transferase 16 U/L (5-31); Bilirubin Total 0.9 mg/dL (0.0-1.0); Blood Urea Nitrogen 13 mg/dL (9-16); Calcium 8.5 mg/dL (8.4-10.2); Carbon Dioxide 31 mmol/L (22-29); Chloride 97 mmol/L (96-108); Creatinine Clr Calc Pharmacy 84.2; Estimated Glomerular Filt Rate > 60; Glucose Random 118 mg/dL (60-115); Sodium 138 mmol/L (135-145); Total Protein 5.8 g/dL (6.5-8.0)
[2022-02-27 15:13] LABS: ABG Refer to POC result
[2022-02-27] MEDS: Azithromycin 500 MG in 0.9 % Sodium Chloride 250 ML 125 MG IV (16:13)
[2022-02-27] MEDS: iohexoL 350 MG/ML 100 ML INFUS..BTL IV (16:14)
--- NOTE | 2022-02-27 17:23 | P.HPHOSP_ITS ---
History of Present Illness Date of Service: 02/27/22 Attending physician on admission: [facility] Chief Complaint: shortness of breath 48-year-old woman history of COPD presenting to the ER with complaints of worsening shortness of breath. She reports she was diagnosed with COVID gonzalo roximately 2 weeks ago and has felt unwell since then. She reports that she has been on steroids and antibiotics in the interim but has continued to feel unwell. She reports fever, cough and shortness of breath. She reported being on prednisone and doxycycline on 02/22/2022 which was prescribed by her primary care provider and completed a 5 day course. She denies recent travel, sick contacts. In the ER flu, COVID and RSV was negative, chest CTA was negative for PE but showed right-sided pleural effusion with dense consolidations. She was also noted to be hypoxic with oxygen saturation as low as 70% she was placed on high-flow. Her oxygen saturation did come up to above 90% but with activity she does go down significantly into the low 80s. She was noted to have leukocytosis, tachypnea and tachycardia with normal lactic acid. INR 1.2. ABG 7.49/53/64/41. In the ER she was given albuterol, Solu-Medrol, Rocephin, azithromycin. She will be admitted for further management and treatment of acute hypoxic respiratory failure secondary to COPD, Captain pleural effusion. Review of Systems Review of Systems: Denies any recent fever chills or decrease in appetite respiratory denies any shortness of breath coverage production cardiovascular denies chest pain gastrointestinal denies any dysphagia abdominal pain nausea vomiting or diarrhea genitourinary denies any dysuria frequency or hematuria musculoskeletal denies any joint pain or swelling neuropsych denies any weakness or seizures all other systems reviewed are negative [facility] Medical History (Updated 02/27/22 @ 17:25 by Deisy Stout NP) Allergic rhinitis Anxiety and depression Asthma Atelectasis of right lung Cataract COPD (chronic obstructive pulmonary disease) Dysphagia ETOH abuse Ex-smoker GERD (gastroesophageal reflux disease) HTN (hypertension) Migraine Musculoskeletal pain SUNSHINE on CPAP Vitamin B12 deficiency Vitamin D insufficiency Family History Father Alcoholic Mother Diabetes mellitus HTN (hypertension) Brother No problems noted. Brother No problems noted. Daughter No problems noted. 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 Cognitive needs: No Hearing needs: No Vision needs: Yes Meds Allergies Allergy/AdvReac Type Severity Reaction Status Date / Time lamotrigine [From LAMICTAL] Allergy Severe RASH Verified 01/18/22 12:48 sumatriptan [From IMITREX] Allergy Intermediate RASH Verified 01/18/22 12:48 Active Medications: Current Medications Acetaminophen (Acetaminophen 325 Mg Tablet) 650 mg PO Q6H PRN PRN Reason: Pain, Mild (Pain Scale 1-3) Ceftriaxone Sodium 1 gm/ (Sodium Chloride) 50 mls @ 100 mls/hr IV Q24H SINDI Azithromycin 500 mg/ Sodium (Chloride) 250 mls @ 125 mls/hr IV Q24H SINDI Morphine Sulfate (Morphine Sulfate 2 Mg/Ml Cartridge) 2 mg IVPUSH Q4H PRN; Protocol PRN Reason: respiratory distress Ondansetron HCl (Ondansetron Hcl 4 Mg/2 Ml Vial) 4 mg IVPUSH Q8H PRN PRN Reason: Nausea and Vomiting Oxycodone HCl (Oxycodone Hcl Immed Release 5 Mg Tablet) 5 mg PO Q6H PRN PRN Reason: Pain, Severe (Pain Scale 7-10) Pharmacy Consult (Consult Rx Perform Med Rec) 1 each MISCELLANE ONCE PRN PRN Reason: Consult order Sodium Chloride (0.9 % Sodium Chloride Flush 3 Ml Syringe) 3 ml IVFLUSH QSHIFT SINDI Home Medications Medication Instructions Recorded Confirmed Last Taken Type clonazepam 1 mg tablet 1 mg PO TID 01/11/20 02/27/22 02/27/22 History gabapentin 400 mg capsule 400 mg PO BID 01/11/20 02/27/22 02/27/22 History [id number]-[id number]-[id number] 1 tab PO Q4H PRN Headache 02/27/22 02/27/22 Unknown History 50 mg-325 mg-40 mg tablet doxycycline hyclate 100 mg capsule 1 cap PO BID 02/27/22 02/27/22 02/27/22 History fluticasone 250 mcg-salmeterol 50 1 puff inhalation BID 02/27/22 02/27/22 02/27/22 History mcg/dose blistr powdr for inhalation (Wixela Inhub) ipratropium 0.5 mg-albuterol 3 mg 3 ml inhalation QID 02/27/22 02/27/22 02/27/22 History (2.5 mg base)/3 mL nebulization soln naltrexone 50 mg tablet 1 tab PO DAILY 02/27/22 02/27/22 02/27/22 History ondansetron 4 mg disintegrating 1 tab PO TID PRN Nausea 02/27/22 02/27/22 Unknown History tablet pantoprazole 40 mg tablet,delayed 40 mg PO BID 02/27/22 02/27/22 02/27/22 History release vortioxetine 10 mg tablet 1 tab PO DAILY 02/27/22 02/27/22 02/27/22 History (Trintellix) Physical Exam Vital Signs and Narrative: Vital Signs: Last Vital Signs Temp 99.8 F 02/27/22 11:43 Pulse 120 H 02/27/22 12:28 Resp 17 02/27/22 16:23 BP 110/77 02/27/22 11:43 Pulse Ox 78 L 02/27/22 11:43 O2 Del Method 02/27/22 11:43 BMI result Body Mass Index 32.4 Results Labs 02/27/22 12:06 02/27/22 14:42 Labs: Laboratory Results - last 24 hr 02/27/22 02/27/22 02/27/22 12:06 12:06 12:06 MCV 96.5 MCH 30.6 MCHC 31.7 RDW 13.9 Plt Count 645 H D MPV 9.5 Immature Gran % (Auto) 1.0 H Neut % (Auto) 83.1 H Lymph % (Auto) 11.2 L [place] % (Auto) 4.2 Eos % (Auto) 0.1 Baso % (Auto) 0.4 Lymph # (Auto) 2.2 [place] # (Auto) 0.8 Eos # (Auto) 0.0 Baso # (Auto) 0.1 Abs Immat Gran (auto) 0.20 H Absolute Neuts (auto) 16.0 H Absolute Nucleated RBC 0.030 H Nucleated RBC % (auto) 0.2 PT INR APTT O2 Saturation ABG pH at Pt Temp ABG pCO2 at Pt Temp ABG pO2 at Pt Temp ABG HCO3 ABG Base Excess (Actual) Anion Gap Estim Creat Clear Calc Estimated GFR Random Glucose Lactic Acid Calcium Total Bilirubin AST ALT Alkaline Phosphatase Troponin I High Sens < 3.5 B-Natriuretic Peptide Total Protein Albumin Influenza Type A (PCR) NEGATIVE Influenza Type B (PCR) NEGATIVE RSV RNA Qual (PCR) NEGATIVE SARS-CoV-2 RNA (RT-PCR) NEGATIVE 02/27/22 02/27/22 02/27/22 12:06 12:06 12:06 MCV MCH MCHC RDW Plt Count MPV Immature Gran % (Auto) Neut % (Auto) Lymph % (Auto) [place] % (Auto) Eos % (Auto) Baso % (Auto) Lymph # (Auto) [place] # (Auto) Eos # (Auto) Baso # (Auto) Abs Immat Gran (auto) Absolute Neuts (auto) Absolute Nucleated RBC Nucleated RBC % (auto) PT 13.5 H INR 1.2 H APTT 30.3 O2 Saturation ABG pH at Pt Temp ABG pCO2 at Pt Temp ABG pO2 at Pt Temp ABG HCO3 ABG Base Excess (Actual) Anion Gap Estim Creat Clear Calc Estimated GFR Random Glucose Lactic Acid 1.6 Calcium Total Bilirubin AST ALT Alkaline Phosphatase Troponin I High Sens B-Natriuretic Peptide 93 Total Protein Albumin Influenza Type A (PCR) Influenza Type B (PCR) RSV RNA Qual (PCR) SARS-CoV-2 RNA (RT-PCR) 02/27/22 02/27/22 12:29 14:42 MCV MCH MCHC RDW Plt Count MPV Immature Gran % (Auto) Neut % (Auto) Lymph % (Auto) [place] % (Auto) Eos % (Auto) Baso % (Auto) Lymph # (Auto) [place] # (Auto) Eos # (Auto) Baso # (Auto) Abs Immat Gran (auto) Absolute Neuts (auto) Absolute Nucleated RBC Nucleated RBC % (auto) PT INR APTT O2 Saturation 91.0 ABG pH at Pt Temp 7.49 H ABG pCO2 at Pt Temp 53 H ABG pO2 at Pt Temp 64 L ABG HCO3 41 H ABG Base Excess (Actual) 16.0 Anion Gap 15 Estim Creat Clear Calc 84.2 Estimated GFR > 60 Random Glucose 118 H Lactic Acid Calcium 8.5 D Total Bilirubin 0.9 AST 16 ALT 70 H Alkaline Phosphatase 381 H Troponin I High Sens B-Natriuretic Peptide Total Protein 5.8 L Albumin 2.6 L Influenza Type A (PCR) Influenza Type B (PCR) RSV RNA Qual (PCR) SARS-CoV-2 RNA (RT-PCR) Imaging Radiologist's Impressions: Impressions Chest X-Ray 02/27/22 13:10 IMPRESSION: Opacification at the right base compatible with a pleural effusion and likely concomitant consolidation. Consolidation is noted on the prior imaging examinations August 2021 but without effusion Chest CTA 02/27/22 16:16 IMPRESSION: 1. No evidence of pulmonary embolism. 2. Dense consolidation involving the right lower lobe and middle lobe with moderate volume right pleural effusion. 3. There are a few scattered areas of parenchymal stranding and patchy airspace opacities in the left lung. VTE: negative Assessment and Plan (1) Pneumonia: Status: Acute Plan 48-year-old woman admitted with acute COPD exacerbation with noted pleural effusions and consolidations . History of alcohol abuse and smoking, reports cessation of both. Sepsis secondary to community-acquired pneumonia dense consolidations Tachycardia, tachypnea and leukocytosis. Normal lactic acid Treat underlying infection Acute hypoxic respiratory failure secondary to COPD exacerbation and dense consolidations secondary to community-acquired pneumonia with noted right-sided pleural effusion No PE on CTA ABG 7.49/53/64/41 Noted to be hypoxic as low as 78% Will treat with scheduled Solu-Medrol and DuoNebs Rocephin and azithromycin Continue supplemental oxygen Robitussin for cough Pleural effusion Moderate volume right effusion Plan for thoracentesis tomorrow PT INR ordered Cytology /labs ordered History of dysphagia Unknown etiology, possibly functional dysphagia Reports no issues with eating or drinking History of endoscopy with needle biopsy, nondiagnostic Hypertension Low blood pressures noted Hold home medications in light of sepsis to avoid hypotension Mental health Continue home medications History of alcohol abuse Continue PPI Obesity. BMI 32.4 Discussed importance of weight management as this may be contributing to worsening of other comorbidities DVT prophylaxis with pneumatic compression boots for now in light of thoracentesis Attending Dr. Lau Full code Patient will require 2 inpatient midnights for treatment of acute hypoxic respiratory failure secondary to COPD, pleural effusions, community-acquired pneumonia necessitating IV antibiotics, oxygen and thoracentesis. Time Spent With Patient Time: Total time managing care of this patient today ____ minutes. Quality Stroke Does the patient have a stroke diagnosis?: No VTE Prior VTE?: No VTE Risk Level:: Medical - moderate - high VTE Device Contraindication: N/A - Device Ordered VTE Drug Contraindication: Treatment Not Indicated
--- NOTE | 2022-02-27 17:47 | PC.NURSE ---
Pt remains on high flow. Alert and oriented, offering no complaints. Aware of plan for admission.
--- NOTE | 2022-02-27 17:58 | PHA.MEDREC ---
Pharmacy Consult ? Medication Reconciliation Pharmacy has completed the medication reconciliation.
[2022-02-27 18:53] LABS: Glucose Random 182 mg/dL (60-115); Lactate Dehydrogenase 255 U/L (122-220)
--- NOTE | 2022-02-27 19:01 | PC.NURSE ---
Addendum entered by Melanie Menendez RN 02/27/22 19:44: pt is alert and oriented resting in bed pt started on continuos cardiac monitoring pt is on High flow nc denies any chest pain close monitoring continuos Original Note: report received from INOCENCIO Kohli
[2022-02-27] MEDS: methylPREDNISolone Sod Succ 40 MG/ML VIAL IVPUSH (19:48)
--- NOTE | 2022-02-27 21:54 | MHC.CM.PN ---
IMM 02/27. CM met with admitted patient with bed assignment pending. On high flow O2. Covid 2 weeks ago. Negative Covid/Flu, RSV. HX COPD. Lives with . No DME/services. Pt denies CPAP or oxygen at home. Moderna x5. HCP at home. HCP#1/ Aleksandr Pak ([phone]). HCP #2/daughter Kaitlin Salguero ([phone]). D/C plan: Home without services. will transport at discharge. CM to follow for discharge planning needs.
[2022-02-27] MEDS: Acetaminophen 325 MG TABLET 650 MG PO (21:57)
[2022-02-27] MEDS: oxyCODONE HCl Immed Release 5 MG TABLET PO (21:57)
[2022-02-28] VITALS (12 sets, daily range): BP systolic 104–188; BP diastolic 58–70; PULSE 71–91; RESP 15–95; TEMP 36.2–36.7; O2SAT 93–98; BMI 32.8
[2022-02-28] MEDS: methylPREDNISolone Sod Succ 40 MG/ML VIAL IVPUSH ×3 (04:11→19:59)
[2022-02-28 06:08] LABS: MANUAL DIFF FLAG NO
[2022-02-28 06:13] LABS: Basophils Absolute Auto 0.1 X10*3/uL (0.0-0.2); Basophils Percent Auto 0.3 % (0-2); Hemoglobin 10.2 g/dl (12.0-16.0); Imm Gran Abs Auto 0.09 X10*3/uL (0.00-0.03); Imm Gran Pct Auto 0.6 % (0.0-0.4); Lymphocytes Absolute Auto 1.3 X10*3/uL (1.2-4.9); Lymphocytes Percent Auto 8.7 % (20-40); Mean Corpuscular HGB Conc 31.9 g/dl (31.0-35.0); Mean Corpuscular Hemoglobin 31.2 pg (27.0-33.0); Mean Corpuscular Volume 97.9 fL (80.0-98.0); Mean Platelet Volume 9.8 fL (9.4-12.3); Monocytes Absolute Auto 0.4 X10*3/uL (0.1-1.2); Monocytes Percent Auto 2.8 % (2-11); Neutrophils Absolute Auto 13.3 x10*3/uL (2.0-8.3); Neutrophils Percent Auto 87.6 % (45-73); Platelet Count 540 X10*3/uL (160-400); Red Blood Count 3.27 X10*6/uL (4.20-5.50); Red Cell Distribution Width 14.1 % (11.0-16.0); White Blood Count 15.2 X10*3/uL (4.8-10.8)
[2022-02-28 06:22] LABS: INTERNATIONAL NORM RATIO 1.2 (0.9-1.1); Prothrombin Time 13.9 SEC (10.0-13.1)
[2022-02-28] MEDS: Acetaminophen 325 MG TABLET 650 MG PO (06:39)
[2022-02-28] MEDS: Benzonatate 100 MG CAPSULE 200 MG PO (06:51)
[2022-02-28] MEDS: 0.9 % Sodium Chloride Flush 3 ML SYRINGE IVFLUSH ×3 (09:57→20:00)
[2022-02-28] MEDS: cefTRIAXone sodium 1 GM in 0.9 % Sodium Chloride 50 ML IV (13:19)
--- NOTE | 2022-02-28 14:58 | P.PNIM_ITS ---
Subjective Subjective Date of Service: 02/28/22 Interval History: Complaining of persistent shortness of breath and cough productive of yellow phlegm, denies chills, tolerating diet denies nausea, no abdominal pain, no diarrhea, no lightheadedness or dizziness. Review of Systems Review of Systems: Yes all other systems are reviewed and are negative Physical Exam Vital Signs: Vital Signs: Last Vital Signs Temp 97.8 F 02/28/22 11:14 Pulse 75 02/28/22 11:14 Resp 95 H 02/28/22 12:02 BP 123/58 L 02/28/22 11:14 Pulse Ox 95 02/28/22 11:14 O2 Del Method 02/28/22 11:14 O2 Flow Rate 40 02/28/22 00:11 BMI result Body Mass Index 32.8 Const: Other: General awake alert x3, in no acute distress. Neck no JVD. CVS regular rate rhythm, Respiratory lungs clear to auscultation, diminished at right base, no respiratory distress, Gastrointestinal abdomen soft, nontender, bowel sounds audible, no guarding , no rigidity. Extremities no edema. Neuro nonfocal patient moving all 4 extremity speech clear. Skin no rash Psych appropriate affect Objective Data Active Medications Acetaminophen (Acetaminophen 325 Mg Tablet) 650 mg PO Q6H PRN PRN Reason: Pain, Mild (Pain Scale 1-3) Last Admin: 02/28/22 06:39 Dose: 650 mg Documented By: ASH Benzonatate (Benzonatate 100 Mg Capsule) 200 mg PO TID PRN PRN Reason: cough Last Admin: 02/28/22 06:51 Dose: 200 mg Documented By: ASH Ceftriaxone Sodium 1 gm/ (Sodium Chloride) 50 mls @ 100 mls/hr IV Q24H [facility] Last Infusion: 02/28/22 14:05 Dose: 0 mls/hr Documented By: DEMETRIO Azithromycin 500 mg/ Sodium (Chloride) 250 mls @ 125 mls/hr IV Q24H [facility] Methylprednisolone Sodium Succinate (Methylprednisolone Sod Succ 40 Mg/Ml Vial) 40 mg IVPUSH Q8H [facility] Last Admin: 02/28/22 13:19 Dose: 40 mg Documented By: DEMETRIO Morphine Sulfate (Morphine Sulfate 2 Mg/Ml Cartridge) 2 mg IVPUSH Q4H PRN; Protocol PRN Reason: respiratory distress Ondansetron HCl (Ondansetron Hcl 4 Mg/2 Ml Vial) 4 mg IVPUSH Q8H PRN PRN Reason: Nausea and Vomiting Oxycodone HCl (Oxycodone Hcl Immed Release 5 Mg Tablet) 5 mg PO Q6H PRN PRN Reason: Pain, Severe (Pain Scale 7-10) Last Admin: 02/27/22 21:57 Dose: 5 mg Documented By: AURELIANO Pharmacy Consult (Consult Rx Perform Med Rec) 1 each MISCELLANE ONCE PRN PRN Reason: Consult order Sodium Chloride (0.9 % Sodium Chloride Flush 3 Ml Syringe) 3 ml IVFLUSH [facility] Last Admin: 02/28/22 09:57 Dose: 3 ml Documented By: DEMETRIO Sodium Chloride (0.9 % Sodium Chloride Flush 3 Ml Syringe) 3 ml IVFLUSH [facility] Last Admin: 02/28/22 09:58 Dose: Not Given Documented By: DEMETRIO Non-Admin Reason: Duplicate Order Labs 02/28/22 05:44 02/27/22 Unknown Labs: Laboratory Results - last 24 hr 02/27/22 02/27/22 02/28/22 14:42 Unknown 05:44 MCV 97.9 MCH 31.2 MCHC 31.9 RDW 14.1 Plt Count 540 H MPV 9.8 Immature Gran % (Auto) 0.6 H Neut % (Auto) 87.6 H Lymph % (Auto) 8.7 L [place] % (Auto) 2.8 Eos % (Auto) 0.0 Baso % (Auto) 0.3 Lymph # (Auto) 1.3 [place] # (Auto) 0.4 Eos # (Auto) 0.0 Baso # (Auto) 0.1 Abs Immat Gran (auto) 0.09 H Absolute Neuts (auto) 13.3 H Absolute Nucleated RBC 0.000 Nucleated RBC % (auto) 0.0 PT INR Anion Gap 15 Estim Creat Clear Calc 84.2 Estimated GFR > 60 Random Glucose 118 H 182 H Calcium 8.5 D Total Bilirubin 0.9 AST 16 ALT 70 H Alkaline Phosphatase 381 H Lactate Dehydrogenase 255 H Total Protein 5.8 L 6.0 L Albumin 2.6 L 02/28/22 05:44 MCV MCH MCHC RDW Plt Count MPV Immature Gran % (Auto) Neut % (Auto) Lymph % (Auto) [place] % (Auto) Eos % (Auto) Baso % (Auto) Lymph # (Auto) [place] # (Auto) Eos # (Auto) Baso # (Auto) Abs Immat Gran (auto) Absolute Neuts (auto) Absolute Nucleated RBC Nucleated RBC % (auto) PT 13.9 H INR 1.2 H Anion Gap Estim Creat Clear Calc Estimated GFR Random Glucose Calcium Total Bilirubin AST ALT Alkaline Phosphatase Lactate Dehydrogenase Total Protein Albumin Microbiology Microbiology Results: Microbiology 02/27/22 12:13 Blood Culture - Preliminary Blood - Venous No growth after 24 hours. 02/27/22 12:06 Blood Culture - Preliminary Blood - Venous No growth after 24 hours. Assessment and Plan (1) Pneumonia: Status: Acute Plan 48-year-old woman admitted with acute COPD exacerbation with noted pleural effusions and consolidations .? History of alcohol abuse and smoking, reports cessation of both. Sepsis secondary to community-acquired pneumonia dense consolidations Tachycardia, tachypnea and leukocytosis.? Normal lactic acid WBC trending down, persistent cough productive of yellow phlegm and shortness of breath continue IV Rocephin and azithromycin day 2, continue supportive care with cough medication ,oxygen Acute hypoxic respiratory failure secondary to COPD exacerbation and dense consolidations secondary to community-acquired pneumonia and right-sided pleural effusion No PE on CTA ABG 7.49/53/64/41 Noted to be hypoxic as low as 78%, continue high-flow oxygen and wean as tolerated, continue IV Solu-Medrol and DuoNebs, continue IV Rocephin and azithromycin as above day 2 Robitussin for cough Moderate right Pleural effusion Plan for thoracentesis today Will follow Cytology /labs History of dysphagia, tolerating diet status post upper endoscopy with needle biopsy nondiagnostic Hypertension Low blood pressures noted, will hold Norvasc follow BP closely Mental health Continue home medications History of alcohol abuse Continue PPI, and Campral Obesity.? BMI 32.4, recommended low-calorie diet. DVT prophylaxis with pneumatic compression boots Full code Patient will need continued inpatient stay for treatment of acute hypoxic respiratory failure secondary to COPD, pleural effusions, community-acquired pneumonia necessitating IV antibiotics, oxygen and thoracentesis. Time Spent With Patient Time: Total time managing care of this patient today ____ minutes. Quality Stroke Does the patient have a stroke diagnosis?: No VTE Prior VTE?: No VTE Risk Level:: Medical - moderate - high VTE Device Contraindication: N/A - Device Ordered VTE Drug Contraindication: Treatment Not Indicated
[2022-02-28] MEDS: Omeprazole 20 MG CAPSULE.DR PO (15:50)
[2022-02-28] MEDS: clonazePAM 1 MG TABLET PO ×2 (15:50→19:59)
[2022-02-28] MEDS: amLODIPine Besylate 5 MG TABLET PO (15:50)
[2022-02-28] MEDS: Azithromycin 500 MG in 0.9 % Sodium Chloride 250 ML 125 MG IV (15:51)
[2022-02-28] MEDS: oxyCODONE HCl Immed Release 5 MG TABLET PO (19:59)
[2022-02-28] MEDS: Acamprosate Calcium 333 MG TABLET.DR 666 MG PO (19:59)
[2022-02-28] MEDS: Gabapentin 400 MG CAPSULE PO (19:59)
[2022-02-28] MEDS: Baclofen 10 MG TABLET PO (19:59)
[2022-03-01] VITALS (13 sets, daily range): BP systolic 118–142; BP diastolic 63–75; PULSE 73–84; RESP 16–20; TEMP 36.1–37; O2SAT 89–96
[2022-03-01] MEDS: oxyCODONE HCl Immed Release 5 MG TABLET PO ×2 (03:15→14:58)
[2022-03-01] MEDS: Benzonatate 100 MG CAPSULE 200 MG PO (03:16)
[2022-03-01] MEDS: methylPREDNISolone Sod Succ 40 MG/ML VIAL IVPUSH ×3 (03:16→23:37)
[2022-03-01] MEDS: Omeprazole 20 MG CAPSULE.DR PO ×2 (06:21→16:15)
[2022-03-01] MEDS: Naltrexone HCl 50 MG TABLET PO (08:24)
[2022-03-01] MEDS: Acamprosate Calcium 333 MG TABLET.DR 666 MG PO ×3 (08:24→20:35)
[2022-03-01] MEDS: clonazePAM 1 MG TABLET PO ×3 (08:24→20:34)
[2022-03-01] MEDS: Loratadine 10 MG TABLET PO (08:24)
[2022-03-01] MEDS: Thiamine HCL 100 MG TABLET PO (08:24)
[2022-03-01] MEDS: Vortioxetine Hydrobromide 10 MG TABLET PO (08:24)
[2022-03-01] MEDS: Gabapentin 400 MG CAPSULE PO ×2 (08:24→20:35)
[2022-03-01] MEDS: Multivitamin TABLET 1 TAB PO (08:24)
[2022-03-01] MEDS: Montelukast Sodium 10 MG TABLET PO (08:24)
[2022-03-01] MEDS: Nicotine 14 MG PATCH.TD24 TRANSDERMA (08:25)
[2022-03-01] MEDS: 0.9 % Sodium Chloride Flush 3 ML SYRINGE IVFLUSH ×6 (08:25→20:50)
[2022-03-01] MEDS: Folic Acid 1 MG TABLET PO (08:25)
[2022-03-01] MEDS: Acetaminophen 325 MG TABLET 650 MG PO ×2 (10:49→21:58)
--- NOTE | 2022-03-01 11:33 | P.PNIM_ITS ---
Subjective Subjective Date of Service: 03/01/22 Interval History: Feeling better with loss shortness of breath and less phlegm, denies fever chills tolerating diet with no nausea, no vomiting, no abdominal pain or diarrhea no other acute issues overnight oxygenation remains stable on high- flow, no acute events overnight. Review of Systems Review of Systems: Yes all other systems are reviewed and are negative Physical Exam Vital Signs: Vital Signs: Last Vital Signs Temp 97.6 F 03/01/22 08:00 Pulse 73 03/01/22 08:00 Resp 18 03/01/22 10:53 BP 142/73 H 03/01/22 08:00 Pulse Ox 95 03/01/22 08:00 O2 Del Method 03/01/22 08:00 O2 Flow Rate 30 03/01/22 08:00 FiO2 50 03/01/22 08:00 BMI result Body Mass Index 32.8 Const: Other: General awake alert x3, in no acute distress.? Neck no JVD. CVS? regular rate rhythm, Respiratory lungs clear to auscultation, diminished at right base, no respiratory distress, no rhonchi, no wheeze Gastrointestinal abdomen soft, nontender, bowel sounds audible, no guarding , no rigidity. Extremities no edema. Neuro nonfocal patient moving all 4 extremity speech clear. Skin no rash Psych appropriate affect Objective Data Active Medications Acamprosate (Acamprosate Calcium 333 Mg Tablet.) 666 mg PO TID [facility] Last Admin: 03/01/22 08:24 Dose: 666 mg Documented By: ARMANDO Acetaminophen (Acetaminophen 325 Mg Tablet) 650 mg PO Q6H PRN PRN Reason: Pain, Mild (Pain Scale 1-3) Last Admin: 03/01/22 10:49 Dose: 650 mg Documented By: ARMANDO Acetaminophen/Butalbital/Caffeine (Butalb/Acetamin/Caff 50/325/40 Tablet) 1 tab PO Q4H PRN PRN Reason: Headache Baclofen (Baclofen 10 Mg Tablet) 10 mg PO BEDTIME [facility] Last Admin: 02/28/22 19:59 Dose: 10 mg Documented By: DANIEL Benzonatate (Benzonatate 100 Mg Capsule) 200 mg PO TID PRN PRN Reason: cough Last Admin: 03/01/22 03:16 Dose: 200 mg Documented By: DANIEL Clonazepam (Clonazepam 1 Mg Tablet) 1 mg PO TID [facility] Last Admin: 03/01/22 08:24 Dose: 1 mg Documented By: ARMANDO Fluticasone Propionate (Fluticasone Propionate Nasal 16 Gm [place]) 1 spray NOSTRIL-B DAILY [facility] Folic Acid (Folic Acid 1 Mg Tablet) 1 mg PO DAILY [facility] Last Admin: 03/01/22 08:25 Dose: 1 mg Documented By: ARMANDO Gabapentin (Gabapentin 400 Mg Capsule) 400 mg PO BID [facility] Last Admin: 03/01/22 08:24 Dose: 400 mg Documented By: ARMANDO Ceftriaxone Sodium 1 gm/ (Sodium Chloride) 50 mls @ 100 mls/hr IV Q24H [facility] Last Infusion: 02/28/22 14:05 Dose: 0 mls/hr Documented By: DEMETRIO Azithromycin 500 mg/ Sodium (Chloride) 250 mls @ 125 mls/hr IV Q24H [facility] Last Infusion: 02/28/22 18:23 Dose: 0 mls/hr Documented By: DEMETRIO Loratadine (Loratadine 10 Mg Tablet) 10 mg PO DAILY [facility] Last Admin: 03/01/22 08:24 Dose: 10 mg Documented By: ARMANDO Methylprednisolone Sodium Succinate (Methylprednisolone Sod Succ 40 Mg/Ml Vial) 40 mg IVPUSH Q12H [facility] Montelukast Sodium (Montelukast Sodium 10 Mg Tablet) 10 mg PO DAILY [facility] Last Admin: 03/01/22 08:24 Dose: 10 mg Documented By: ARMANDO Multivitamins/Vitamin C (Multivitamin Tablet) 1 tab PO DAILY [facility] Last Admin: 03/01/22 08:24 Dose: 1 tab Documented By: ARMANDO Naltrexone HCl (Naltrexone Hcl 50 Mg Tablet) 50 mg PO DAILY [facility] Last Admin: 03/01/22 08:24 Dose: 50 mg Documented By: ARMANDO Nicotine (Nicotine 14 Mg Patch.Td24) 14 mg TRANSDERMA DAILY [facility] Last Admin: 03/01/22 08:25 Dose: 14 mg Documented By: ARMANDO Omeprazole (Omeprazole 20 Mg Capsule.Dr) 20 mg PO BID@0630,1630 [facility] Last Admin: 03/01/22 06:21 Dose: 20 mg Documented By: HO.DESROA Ondansetron HCl (Ondansetron Hcl 4 Mg/2 Ml Vial) 4 mg IVPUSH Q8H PRN PRN Reason: Nausea and Vomiting Oxycodone HCl (Oxycodone Hcl Immed Release 5 Mg Tablet) 5 mg PO Q6H PRN PRN Reason: Pain, Severe (Pain Scale 7-10) Last Admin: 03/01/22 03:15 Dose: 5 mg Documented By: DANIEL Pharmacy Consult (Consult Rx Perform Med Rec) 1 each MISCELLANE ONCE PRN PRN Reason: Consult order Sodium Chloride (0.9 % Sodium Chloride Flush 3 Ml Syringe) [facility] Last Admin: 03/01/22 08:25 Dose: 3 ml Documented By: ARMANDO Sodium Chloride (0.9 % Sodium Chloride Flush 3 Ml Syringe) 3 ml IVFLUSH [facility] Last Admin: 03/01/22 08:25 Dose: 3 ml Documented By: ARMANDO Thiamine HCl (Thiamine Hcl 100 Mg Tablet) 100 mg PO DAILY [facility] Last Admin: 03/01/22 08:24 Dose: 100 mg Documented By: ARMANDO Vortioxetine (Vortioxetine Hydrobromide 10 Mg Tablet) 10 mg PO DAILY [facility] Last Admin: 03/01/22 08:24 Dose: 10 mg Documented By: ARMANDO Labs 02/28/22 05:44 02/27/22 Unknown Microbiology Microbiology Results: Microbiology 02/27/22 12:13 Blood Culture - Preliminary Blood - Venous No growth after 24 hours. 02/27/22 12:06 Blood Culture - Preliminary Blood - Venous No growth after 24 hours. Assessment and Plan (1) Pneumonia: Status: Acute Plan 48-year-old woman admitted with acute COPD exacerbation with noted pleural effusions and consolidations .? History of alcohol abuse and smoking, reports cessation of both. Sepsis secondary to community-acquired pneumonia dense consolidations right lower and middle lobe Tachycardia, tachypnea resolved WBC is trending down, shortness of breath and cough is improving continue IV Rocephin and azithromycin day 3, continue supportive care with cough medication /oxygen. Acute hypoxic respiratory failure secondary to COPD exacerbation and dense consolidations secondary to community-acquired pneumonia and right-sided pleural effusion No PE on CTA Noted to be hypoxic as low as 78%, continue high-flow oxygen and wean as tolerated, will wean IV Solu-Medrol, continue DuoNebs, continue IV Rocephin and azithromycin as above day 3 Schedule Robitussin for cough Moderate right Pleural effusion seen on CT chest and chest x-ray patient sent down for thoracocentesis but patient noted to have no fluid, therefore procedure canceled History of dysphagia, tolerating diet status post upper endoscopy with needle biopsy nondiagnostic. Hypertension BP improved will resume Norvasc, follow BP closely. Mental health Continue home medications History of alcohol abuse Continue PPI, and Campral Obesity.? BMI 32.4, recommended low-calorie diet. DVT prophylaxis with pneumatic compression boots Full code Patient will need continued inpatient stay for treatment of acute hypoxic respiratory failure secondary to COPD, community-acquired pneumonia necessitating IV antibiotics, and high-flow oxygen Time Spent With Patient Time: Total time managing care of this patient today ____ minutes. Quality Stroke Does the patient have a stroke diagnosis?: No VTE Prior VTE?: No VTE Risk Level:: Medical - moderate - high VTE Device Contraindication: N/A - Device Ordered VTE Drug Contraindication: Treatment Not Indicated
[2022-03-01] MEDS: Fluticasone Propionate Nasal 16 GM SPRAY 1 SPRAY NOSTRIL-B (12:01)
[2022-03-01] MEDS: guaiFENesin DM 100/10/5 ML 5 ML SYRUP 10 ML PO ×2 (14:45→20:37)
[2022-03-01] MEDS: cefTRIAXone sodium 1 GM in 0.9 % Sodium Chloride 50 ML IV (15:09)
[2022-03-01] MEDS: Azithromycin 500 MG in 0.9 % Sodium Chloride 250 ML 125 MG IV (16:22)
[2022-03-01] MEDS: Baclofen 10 MG TABLET PO (20:35)
[2022-03-02] VITALS (10 sets, daily range): BP systolic 115–137; BP diastolic 63–76; PULSE 76–92; RESP 18–20; TEMP 36.3–37.1; O2SAT 88–96
[2022-03-02] MEDS: oxyCODONE HCl Immed Release 5 MG TABLET PO ×2 (02:16→09:10)
[2022-03-02] MEDS: Omeprazole 20 MG CAPSULE.DR PO ×2 (05:37→15:32)
[2022-03-02] MEDS: 0.9 % Sodium Chloride Flush 3 ML SYRINGE IVFLUSH ×5 (08:50→20:14)
[2022-03-02] MEDS: Nicotine 14 MG PATCH.TD24 TRANSDERMA (08:50)
[2022-03-02] MEDS: amLODIPine Besylate 5 MG TABLET PO (08:51)
[2022-03-02] MEDS: Vortioxetine Hydrobromide 10 MG TABLET PO (08:51)
[2022-03-02] MEDS: Multivitamin TABLET 1 TAB PO (08:51)
[2022-03-02] MEDS: Loratadine 10 MG TABLET PO (08:51)
[2022-03-02] MEDS: Thiamine HCL 100 MG TABLET PO (08:51)
[2022-03-02] MEDS: clonazePAM 1 MG TABLET PO ×3 (08:51→20:11)
[2022-03-02] MEDS: Montelukast Sodium 10 MG TABLET PO (08:51)
[2022-03-02] MEDS: Folic Acid 1 MG TABLET PO (08:51)
[2022-03-02] MEDS: Naltrexone HCl 50 MG TABLET PO (08:51)
[2022-03-02] MEDS: guaiFENesin DM 100/10/5 ML 5 ML SYRUP 10 ML PO ×3 (08:51→20:11)
[2022-03-02] MEDS: Acamprosate Calcium 333 MG TABLET.DR 666 MG PO ×3 (08:51→20:10)
[2022-03-02] MEDS: Gabapentin 400 MG CAPSULE PO ×2 (08:51→20:10)
[2022-03-02] MEDS: Fluticasone Propionate Nasal 16 GM SPRAY 1 SPRAY NOSTRIL-B (08:52)
[2022-03-02] MEDS: Docusate Sodium 100 MG CAPSULE 200 MG PO (10:22)
[2022-03-02] MEDS: methylPREDNISolone Sod Succ 40 MG/ML VIAL IVPUSH (11:37)
--- NOTE | 2022-03-02 13:39 | HO.PM.IMPN ---
Subjective Subjective Date of Service: 03/02/22 Interval History: Being followed for hypoxic respiratory failure feet feeling better this morning with less cough and shortness of breath complaining of right-sided lower back discomfort with coughing and with deep breathing no overnight fever chills, no nausea, no vomiting, no abdominal pain, no other acute issues overnight complaining of constipation Review of Systems Review of Systems: Yes all other systems are reviewed and are negative Physical Exam Vital Signs: Vital Signs: Last Vital Signs Temp 97.9 F 03/02/22 11:08 Pulse 80 03/02/22 11:08 Resp 20 03/02/22 11:08 BP 137/74 03/02/22 11:08 Pulse Ox 93 03/02/22 11:08 O2 Del Method 03/02/22 11:08 O2 Flow Rate 5 03/02/22 11:08 FiO2 96 03/02/22 04:00 BMI result Body Mass Index 32.8 Const: Other: General awake aler t x3, in no acute distress.? Neck no JVD. CVS? regular rate rhythm, Resp iratory lungs jhon r to auscultation, right base crepit us, no respiratory distress, no rhon chi, no wheeze Gas trointestinal abdo men soft, nontende r, bowel sounds au dible, no guarding , no rigidity. Ex tremities no edema . Neuro nonfocal p atient moving all 4 extremity speech clear. Skin no ra sh Psych appropria te affect Objective Data Active Medications Acamprosate (Acamprosate Calcium 333 Mg Tablet.) 666 mg PO TID [facility] Last Admin: 03/02/22 08:51 Dose: 666 mg Documented By: ARMANDO Acetaminophen (Acetaminophen 325 Mg Tablet) 650 mg PO Q6H PRN PRN Reason: Pain, Mild (Pain Scale 1-3) Last Admin: 03/01/22 21:58 Dose: 650 mg Documented By: LILLIAN Acetaminophen/Butalbital/Caffeine (Butalb/Acetamin/Caff 50/325/40 Tablet) 1 tab PO Q4H PRN PRN Reason: Headache Al Hydroxide/Mg Hydroxide (Magnesium Hydrox/Alum Hydrox 30 Ml Oral.Susp) 30 ml PO DAILY PRN PRN Reason: Constipation Amlodipine Besylate (Amlodipine Besylate 5 Mg Tablet) 5 mg PO DAILY [facility]; Protocol Last Admin: 03/02/22 08:51 Dose: 5 mg Documented By: ARMANDO Baclofen (Baclofen 10 Mg Tablet) 10 mg PO BEDTIME [facility] Last Admin: 03/01/22 20:35 Dose: 10 mg Documented By: LILLIAN Benzonatate (Benzonatate 100 Mg Capsule) 200 mg PO TID PRN PRN Reason: cough Last Admin: 03/01/22 03:16 Dose: 200 mg Documented By: DANIEL Clonazepam (Clonazepam 1 Mg Tablet) 1 mg PO TID [facility] Last Admin: 03/02/22 08:51 Dose: 1 mg Documented By: ARMANDO Albuterol Sulfate 2.5 mg/ (Ipratropium [place] 0.5 mg) 0 mg INHALE RQ6H WHILE AWAKE [facility] Last Admin: 03/02/22 07:15 Dose: 1 each Documented By: JIMBO Docusate Sodium (Docusate Sodium 100 Mg Capsule) 200 mg PO DAILY [facility] Last Admin: 03/02/22 10:22 Dose: 200 mg Documented By: ARMANDO Fluticasone Propionate (Fluticasone Propionate Nasal 16 Gm [place]) 1 spray NOSTRIL-B DAILY [facility] Last Admin: 03/02/22 08:52 Dose: 1 spray Documented By: ARMANDO Folic Acid (Folic Acid 1 Mg Tablet) 1 mg PO DAILY [facility] Last Admin: 03/02/22 08:51 Dose: 1 mg Documented By: ARMANDO Gabapentin (Gabapentin 400 Mg Capsule) 400 mg PO BID [facility] Last Admin: 03/02/22 08:51 Dose: 400 mg Documented By: ARMANDO Guaifenesin/Dextromethorphan (Guaifenesin Dm 100/10/5 Ml 5 Ml Syrup) 10 ml PO TID [facility] Last Admin: 03/02/22 08:51 Dose: 10 ml Documented By: ARMANDO Ceftriaxone Sodium 1 gm/ (Sodium Chloride) 50 mls @ 100 mls/hr IV Q24H [facility] Last Infusion: 03/01/22 15:47 Dose: 0 mls/hr Documented By: ARMANDO Azithromycin 500 mg/ Sodium (Chloride) 250 mls @ 125 mls/hr IV Q24H [facility] Last Infusion: 03/01/22 18:43 Dose: 0 mls/hr Documented By: ARMANDO Loratadine (Loratadine 10 Mg Tablet) 10 mg PO DAILY [facility] Last Admin: 03/02/22 08:51 Dose: 10 mg Documented By: ARMANDO Methylprednisolone Sodium Succinate (Methylprednisolone Sod Succ 40 Mg/Ml Vial) 40 mg IVPUSH Q12H [facility] Last Admin: 03/02/22 11:37 Dose: 40 mg Documented By: ARMANDO Montelukast Sodium (Montelukast Sodium 10 Mg Tablet) 10 mg PO DAILY [facility] Last Admin: 03/02/22 08:51 Dose: 10 mg Documented By: ARMANDO Multivitamins/Vitamin C (Multivitamin Tablet) 1 tab PO DAILY [facility] Last Admin: 03/02/22 08:51 Dose: 1 tab Documented By: ARMANDO Naltrexone HCl (Naltrexone Hcl 50 Mg Tablet) 50 mg PO DAILY [facility] Last Admin: 03/02/22 08:51 Dose: 50 mg Documented By: ARMANDO Nicotine (Nicotine 14 Mg Patch.Td24) 14 mg TRANSDERMA DAILY [facility] Last Admin: 03/02/22 08:50 Dose: 14 mg Documented By: ARMANDO Omeprazole (Omeprazole 20 Mg Capsule.Dr) 20 mg PO BID@0630,1630 [facility] Last Admin: 03/02/22 05:37 Dose: 20 mg Documented By: LILLIAN Ondansetron HCl (Ondansetron Hcl 4 Mg/2 Ml Vial) 4 mg IVPUSH Q8H PRN PRN Reason: Nausea and Vomiting Oxycodone HCl (Oxycodone Hcl Immed Release 5 Mg Tablet) 5 mg PO Q6H PRN PRN Reason: Pain, Severe (Pain Scale 7-10) Last Admin: 03/02/22 09:10 Dose: 5 mg Documented By: ARMANDO Pharmacy Consult (Consult Rx Perform Med Rec) 1 each MISCELLANE ONCE PRN PRN Reason: Consult order Sodium Chloride (0.9 % Sodium Chloride Flush 3 Ml Syringe) 3 ml IVFLUSH [facility] Last Admin: 03/02/22 08:50 Dose: 3 ml Documented By: ARMANDO Sodium Chloride (0.9 % Sodium Chloride Flush 3 Ml Syringe) 3 ml IVFLUSH [facility] Last Admin: 01/20/23 08:50 Dose: 3 ml Documented By: ARMANDO Thiamine HCl (Thiamine Hcl 100 Mg Tablet) 100 mg PO DAILY [facility] Last Admin: 03/02/22 08:51 Dose: 100 mg Documented By: ARMANDO Vortioxetine (Vortioxetine Hydrobromide 10 Mg Tablet) 10 mg PO DAILY [facility] Last Admin: 03/02/22 08:51 Dose: 10 mg Documented By: ARMANDO Labs 02/28/22 05:44 02/27/22 Unknown Microbiology Microbiology Results: Microbiology 02/27/22 12:13 Blood Culture - Preliminary Blood - Venous No growth after 48 hours. 02/27/22 12:06 Blood Culture - Preliminary Blood - Venous No growth after 48 hours. Assessment and Plan (1) Pneumonia: Status: Acute Plan 48-year-old woman admitted with acute COPD exacerbation with noted pleural effusions and consolidations .? History of alcohol abuse and smoking, reports cessation of both. Sepsis secondary to community-acquired pneumonia dense consolidations right lower and middle lobe Complaining of right lower back pain and with deep breathing and with coughing, Moderate right Pleural effusion seen on CT chest and chest x-ray patient sent down for thoracocentesis but patient noted to have no fluid, therefore procedure canceled, will follow chest x-ray at a.m. Tachycardia, tachypnea resolved WBC is trending down, shortness of breath and cough is improving on IV Rocephin and azithromycin day 4, continue supportive care with cough medication /oxygen. Acute hypoxic respiratory failure secondary to COPD exacerbation and dense consolidations secondary to community-acquired pneumonia and right-sided pleural effusion No PE on CTA Noted to be hypoxic as low as 78%, wean down to 9 L OxyMask overnight, will continue to wean oxygen to keep finger oximetry 94% wean IV Solu-Medrol, continue DuoNebs, continue IV Rocephin and azithromycin as above day 4 History of dysphagia, tolerating diet status post upper endoscopy with needle biopsy nondiagnostic. Constipation will add stool softeners Hypertension on Norvasc, follow BP closely. Mental health Continue home medications History of alcohol abuse Continue PPI, and Campral Obesity.? BMI 32.4, recommended low-calorie diet. DVT prophylaxis with pneumatic compression boots Full code Patient will need continued inpatient stay for treatment of acute hypoxic respiratory failure secondary to COPD, community-acquired pneumonia necessitating IV antibiotics, and high-flow oxygen Time Spent With Patient Time: Total time managing care of this patient today ____ minutes. Quality Stroke Does the patient have a stroke diagnosis?: No VTE Prior VTE?: No VTE Risk Level:: Medical - moderate - high VTE Device Contraindication: N/A - Device Ordered VTE Drug Contraindication: Treatment Not Indicated
[2022-03-02] MEDS: cefTRIAXone sodium 1 GM in 0.9 % Sodium Chloride 50 ML IV (13:41)
[2022-03-02] MEDS: Acetaminophen 325 MG TABLET 650 MG PO (15:34)
[2022-03-02] MEDS: Azithromycin 500 MG in 0.9 % Sodium Chloride 250 ML 125 MG IV (15:38)
[2022-03-02] MEDS: traMADoL HCL 50 MG TABLET PO (20:10)
[2022-03-02] MEDS: Baclofen 10 MG TABLET PO (20:11)
[2022-03-02] MEDS: Benzonatate 100 MG CAPSULE 200 MG PO (20:11)
[2022-03-03] VITALS (10 sets, daily range): BP systolic 105–120; BP diastolic 55–69; PULSE 72–92; RESP 18–20; TEMP 36.4–37.2; O2SAT 90–97
[2022-03-03] MEDS: methylPREDNISolone Sod Succ 40 MG/ML VIAL IVPUSH (01:19)
[2022-03-03] MEDS: 0.9 % Sodium Chloride Flush 3 ML SYRINGE IVFLUSH ×6 (01:19→21:03)
[2022-03-03] MEDS: Acetaminophen 325 MG TABLET 650 MG PO ×2 (04:49→13:46)
[2022-03-03] MEDS: Omeprazole 20 MG CAPSULE.DR PO ×2 (04:50→16:33)
[2022-03-03 06:40] LABS: MANUAL DIFF FLAG NO
[2022-03-03 06:44] LABS: Basophils Percent Auto 0.1 % (0-2); Hematocrit 36.6 % (37.0-47.0); Hemoglobin 11.6 g/dl (12.0-16.0); Imm Gran Abs Auto 0.08 X10*3/uL (0.00-0.03); Imm Gran Pct Auto 0.9 % (0.0-0.4); Mean Corpuscular HGB Conc 31.7 g/dl (31.0-35.0); Mean Corpuscular Hemoglobin 31.3 pg (27.0-33.0); Mean Corpuscular Volume 98.7 fL (80.0-98.0); Mean Platelet Volume 9.4 fL (9.4-12.3); Monocytes Absolute Auto 0.2 X10*3/uL (0.1-1.2); Monocytes Percent Auto 2.2 % (2-11); Neutrophils Absolute Auto 7.9 x10*3/uL (2.0-8.3); Neutrophils Percent Auto 85.8 % (45-73); Platelet Count 703 X10*3/uL (160-400); Red Blood Count 3.71 X10*6/uL (4.20-5.50); Red Cell Distribution Width 13.6 % (11.0-16.0); White Blood Count 9.2 X10*3/uL (4.8-10.8)
[2022-03-03 06:59] LABS: Alanine Aminotransferase 56 U/L (0-31); Albumin Level 2.9 g/dL (3.5-5.0); Alkaline Phosphatase 269 U/L (39-117); Aspartate Amino Transferase 24 U/L (5-31); Bilirubin Direct 0.2 mg/dL (0.0-0.5); Bilirubin Total 0.4 mg/dL (0.0-1.0); Total Protein 6.1 g/dL (6.5-8.0)
[2022-03-03] MEDS: Acamprosate Calcium 333 MG TABLET.DR 666 MG PO ×3 (08:41→20:54)
[2022-03-03] MEDS: clonazePAM 1 MG TABLET PO ×3 (08:41→20:54)
[2022-03-03] MEDS: Montelukast Sodium 10 MG TABLET PO (08:41)
[2022-03-03] MEDS: amLODIPine Besylate 5 MG TABLET PO (08:41)
[2022-03-03] MEDS: Multivitamin TABLET 1 TAB PO (08:41)
[2022-03-03] MEDS: Naltrexone HCl 50 MG TABLET PO (08:42)
[2022-03-03] MEDS: Docusate Sodium 100 MG CAPSULE 200 MG PO (08:42)
[2022-03-03] MEDS: Vortioxetine Hydrobromide 10 MG TABLET PO (08:42)
[2022-03-03] MEDS: Folic Acid 1 MG TABLET PO (08:42)
[2022-03-03] MEDS: Thiamine HCL 100 MG TABLET PO (08:42)
[2022-03-03] MEDS: Loratadine 10 MG TABLET PO (08:42)
[2022-03-03] MEDS: Nicotine 14 MG PATCH.TD24 TRANSDERMA (08:43)
[2022-03-03] MEDS: guaiFENesin DM 100/10/5 ML 5 ML SYRUP 10 ML PO ×3 (08:43→20:54)
[2022-03-03] MEDS: Gabapentin 400 MG CAPSULE PO ×2 (08:57→20:54)
[2022-03-03] MEDS: Fluticasone Propionate Nasal 16 GM SPRAY 1 SPRAY NOSTRIL-B (08:58)
--- NOTE | 2022-03-03 10:01 | P.PNIM_ITS ---
Subjective Subjective Date of Service: 03/03/22 Interval History: Feeling better this morning significant improvement and productive cough, less right-sided chest discomfort with deep breathing and coughing, remains on 6 L of oxygen finger oximetry 90% no acute events overnight no fevers, no chills, slept well last night, tolerating diet with no nausea, no vomiting, no abdominal pain. Review of Systems Review of Systems: Yes all other systems are reviewed and are negative Physical Exam Vital Signs: Vital Signs: Last Vital Signs Temp 98.9 F 03/03/22 07:29 Pulse 84 03/03/22 07:56 Resp 18 03/03/22 07:56 BP 118/65 03/03/22 07:29 Pulse Ox 95 03/03/22 07:29 O2 Del Method 03/03/22 07:29 O2 Flow Rate 6 03/03/22 07:29 FiO2 96 03/02/22 04:00 BMI result Body Mass Index 32.8 Const: Other: General awake aler,t x3, in no acute distress.? Neck no?JVD. CVS? regular?rate rhythm, Respiratory lungs clear to auscultation,?right base crepitus, no respiratory?distress, no rhonchi, no wheeze Gastrointestinal abdomen soft, non tender, bowel sounds audible, no guarding?, no rigidity. Extremities no edema. Neuro non focal patient moving all4 extremity speech?clear. Skin no rash Psych appropriate affect Objective Data Active Medications Acamprosate (Acamprosate Calcium 333 Mg Tablet.) 666 mg PO TID [facility] Last Admin: 03/03/22 08:41 Dose: 666 mg Documented By: DEMETRIO Acetaminophen (Acetaminophen 325 Mg Tablet) 650 mg PO Q6H PRN PRN Reason: Pain, Mild (Pain Scale 1-3) Last Admin: 03/03/22 04:49 Dose: 650 mg Documented By: MIGUEL Acetaminophen/Butalbital/Caffeine (Butalb/Acetamin/Caff 50/325/40 Tablet) 1 tab PO Q4H PRN PRN Reason: Headache Al Hydroxide/Mg Hydroxide (Magnesium Hydrox/Alum Hydrox 30 Ml Oral.Susp) 30 ml PO DAILY PRN PRN Reason: Constipation Amlodipine Besylate (Amlodipine Besylate 5 Mg Tablet) 5 mg PO DAILY [facility]; Protoc ol Last Admin: 03/03/22 08:41 Dose: 5 mg Documented By: DEMETRIO Baclofen (Baclofen 10 Mg Tablet) 10 mg PO BEDTIME [facility] Last Admin: 03/02/22 20:11 Dose: 10 mg Documented By: MIGUEL Benzonatate (Benzonatate 100 Mg Capsule) 200 mg PO TID PRN PRN Reason: cough Last Admin: 03/02/22 20:11 Dose: 200 mg Documented By: MIGUEL Clonazepam (Clonazepam 1 Mg Tablet) 1 mg PO TID [facility] Last Admin: 03/03/22 08:41 Dose: 1 mg Documented By: DEMETRIO Albuterol Sulfate 2.5 mg/ (Ipratropium [place] 0.5 mg) 0 mg INHALE RQ6H WHILE AWAKE [facility] Last Admin: 03/03/22 07:51 Dose: 2.5 each Documented By: XAVIERSJESI Docusate Sodium (Docusate Sodium 100 Mg Capsule) 200 mg PO DAILY [facility] Last Admin: 03/03/22 08:42 Dose: 200 mg Documented By: DEMETRIO Fluticasone Propionate (Fluticasone Propionate Nasal 16 Gm [place]) 1 spray NOSTRIL-B DAILY [facility] Last Admin: 03/03/22 08:58 Dose: 1 spray Documented By: DEMETRIO Folic Acid (Folic Acid 1 Mg Tablet) 1 mg PO DAILY [facility] Last Admin: 03/03/22 08:42 Dose: 1 mg Documented By: DEMETRIO Gabapentin (Gabapentin 400 Mg Capsule) 400 mg PO BID [facility] Last Admin: 03/03/22 08:57 Dose: 400 mg Documented By: DEMETRIO Guaifenesin/Dextromethorphan (Guaifenesin Dm 100/10/5 Ml 5 Ml Syrup) 10 ml PO TID [facility] Last Admin: 03/03/22 08:43 Dose: 10 ml Documented By: DEMETRIO Ceftriaxone Sodium 1 gm/ (Sodium Chloride) 50 mls @ 100 mls/hr IV Q24H [facility] Last Infusion: 03/02/22 14:39 Dose: 0 mls/hr Documented By: RIOSCMIRNA Azithromycin 500 mg/ Sodium (Chloride) 250 mls @ 125 mls/hr IV Q24H [facility] Last Infusion: 03/02/22 17:53 Dose: 0 mls/hr Documented By: ARMANDO Loratadine (Loratadine 10 Mg Tablet) 10 mg PO DAILY [facility] Last Admin: 03/03/22 08:42 Dose: 10 mg Documented By: DEMETRIO Methylprednisolone Sodium Succinate (Methylprednisolone Sod Succ 40 Mg/Ml Vial) 40 mg IVPUSH Q12H [facility] Last Admin: 03/03/22 01:19 Dose: 40 mg Documented By: MIGUEL Montelukast Sodium (Montelukast Sodium 10 Mg Tablet) 10 mg PO DAILY [facility] Last Admin: 03/03/22 08:41 Dose: 10 mg Documented By: DEMETRIO Multivitamins/Vitamin C (Multivitamin Tablet) 1 tab PO DAILY [facility] Last Admin: 03/03/22 08:41 Dose: 1 tab Documented By: DEMETRIO Naltrexone HCl (Naltrexone Hcl 50 Mg Tablet) 50 mg PO DAILY [facility] Last Admin: 03/03/22 08:42 Dose: 50 mg Documented By: DEMETRIO Nicotine (Nicotine 14 Mg Patch.Td24) 14 mg TRANSDERMA DAILY [facility] Last Admin: 03/03/22 08:43 Dose: 14 mg Documented By: DEMETRIO Omeprazole (Omeprazole 20 Mg Capsule.Dr) 20 mg PO BID@0630,1630 [facility] Last Admin: 03/03/22 04:50 Dose: 20 mg Documented By: MIGUEL Ondansetron HCl (Ondansetron Hcl 4 Mg/2 Ml Vial) 4 mg IVPUSH Q8H PRN PRN Reason: Nausea and Vomiting Oxycodone HCl (Oxycodone Hcl Immed Release 5 Mg Tablet) 5 mg PO Q6H PRN PRN Reason: Pain, Severe (Pain Scale 7-10) Last Admin: 03/02/22 09:10 Dose: 5 mg Documented By: ARMANDO Pharmacy Consult (Consult Rx Perform Med Rec) 1 each MISCELLANE ONCE PRN PRN Reason: Consult order Sodium Chloride (0.9 % Sodium Chloride Flush 3 Ml Syringe) 3 ml IVFLUSH [facility] Last Admin: 03/03/22 01:19 Dose: 3 ml Documented By: MIGUEL Sodium Chloride (0.9 % Sodium Chloride Flush 3 Ml Syringe) 3 ml IVFLUSH [facility] Last Admin: 03/03/22 08:45 Dose: 3 ml Documented By: DEMETRIO Thiamine HCl (Thiamine Hcl 100 Mg Tablet) 100 mg PO DAILY [facility] Last Admin: 03/03/22 08:42 Dose: 100 mg Documented By: DEMETRIO Tramadol HCl (Tramadol Hcl 50 Mg Tablet) 50 mg PO ONCE PRN PRN Reason: Pain, Moderate (Pain Scale 4-6 Last Admin: 03/02/22 20:10 Dose: 50 mg Documented By: MIGUEL Vortioxetine (Vortioxetine Hydrobromide 10 Mg Tablet) 10 mg PO DAILY [facility] Last Admin: 03/03/22 08:42 Dose: 10 mg Documented By: DEMETRIO Labs 03/03/22 06:28 02/27/22 Unknown Labs: Laboratory Results - last 24 hr 03/03/22 03/03/22 06:28 06:28 MCV 98.7 H MCH 31.3 MCHC 31.7 RDW 13.6 Plt Count 703 H D MPV 9.4 Immature Gran % (Auto) 0.9 H Neut % (Auto) 85.8 H Lymph % (Auto) 11.0 L Dicks[place] % (Auto) 2.2 Eos % (Auto) 0.0 Baso % (Auto) 0.1 Lymph # (Auto) 1.0 L [place] # (Auto) 0.2 Eos # (Auto) 0.0 Baso # (Auto) 0.0 Abs Immat Gran (auto) 0.08 H Absolute Neuts (auto) 7.9 Absolute Nucleated RBC 0.000 Nucleated RBC % (auto) 0.0 Total Bilirubin 0.4 Direct Bilirubin 0.2 AST 24 ALT 56 H Alkaline Phosphatase 269 H Total Protein 6.1 L Albumin 2.9 L Assessment and Plan (1) Pneumonia: Status: Acute Plan 48-year-old woman admitted with acute COPD exacerbation with noted pleural effusions and consolidations .? History of alcohol abuse and smoking, reports cessation of both. Sepsis secondary to community-acquired pneumonia dense consolidations right lowe r and middle lobe Feeling better no fevers, no chills, WBC normalized, right lower back pain with deep breathing improving, Moderate right Pleural effusion seen on CT chest and chest x-ray patient sent down for thoracocentesis but patient noted to have no fluid,procedure canceled on IV Rocephin and azithromycin day 5/7, continue supportive care with cough medication /oxygen. Will repeat chest x-ray if no further improvement in oxygenation, or with persistent right pleuritic pain. Acute hypoxic respiratory failure secondary to COPD exacerbation and dense consolidations secondary to community-acquired pneumonia and right-sided pleural effusion No PE on CTA Noted to be hypoxic as low as 78%, wean down to 6 L OxyMask finger oximetry 90% gradually wean oxygen, not on home O2. on IV Solu-Medrol will transition to by mouth prednisone, continue DuoNebs, Singulair ,continue IV Rocephin and azithromycin as above day 5 , encourage incentive spirometry Tobacco use disorder continue nicotine patch 14mg. History of dysphagia, tolerating diet status post upper endoscopy with needle biopsy nondiagnostic. Constipation resolved, cont. stool softeners Hypertension BP stable on Norvasc, Mental health Continue home medications History of alcohol abuse Continue PPI, and Campral Obesity.? BMI 32.4, recommended low-calorie diet. DVT prophylaxis with pneumatic compression boots Full code Patient will need continued inpatient stay for treatment of acute hypoxic respiratory failure secondary to COPD, community-acquired pneumonia necessitating IV antibiotics and oxygen. Time Spent With Patient Time: Total time managing care of this patient today ____ minutes. Quality Stroke Does the patient have a stroke diagnosis?: No VTE Prior VTE?: No VTE Risk Level:: Medical - moderate - high VTE Device Contraindication: N/A - Device Ordered VTE Drug Contraindication: Treatment Not Indicated
[2022-03-03] MEDS: cefTRIAXone sodium 1 GM in 0.9 % Sodium Chloride 50 ML IV (15:05)
[2022-03-03] MEDS: Azithromycin 500 MG in 0.9 % Sodium Chloride 250 ML 125 MG IV (16:33)
[2022-03-03] MEDS: Baclofen 10 MG TABLET PO (20:54)
[2022-03-03] MEDS: traMADoL HCL 50 MG TABLET PO (21:09)
[2022-03-03] MEDS: Magnesium Hydrox/Alum Hydrox 30 ML ORAL.SUSP PO (21:09)
[2022-03-04] VITALS (8 sets, daily range): BP systolic 105–124; BP diastolic 52–69; PULSE 80–97; RESP 18–20; TEMP 36.2–36.9; O2SAT 91–95
[2022-03-04] MEDS: Acetaminophen 325 MG TABLET 650 MG PO (05:46)
[2022-03-04] MEDS: Omeprazole 20 MG CAPSULE.DR PO ×2 (05:46→17:35)
--- NOTE | 2022-03-04 06:14 | PC.NURSE ---
Incidental note: Patient observed via [employer] taking a small pill from her personal book bag. Patient approached and admitted that she did in fact take a half of a clonipin . Patient was asked if she had been taking meds before and she denied. She stated this was the first time. I was feeling stressed and remembered that I had the pill in my bag . Patient educated on the importance of not taking home medications without nursing awareness d/t to the high potential of interaction with other medications or overmedicating. She is prescribed this medication on her APR. Patient agreeable to bag search and handed over the remaining pill and bottle. Bottle secured and sent to pharmacy for safe keeping. Nursing machine setter supervisor and covering hospitalist notified. Will report this finding in shift report to oncoming RN.
[2022-03-04] MEDS: Multivitamin TABLET 1 TAB PO (08:34)
[2022-03-04] MEDS: Thiamine HCL 100 MG TABLET PO (08:34)
[2022-03-04] MEDS: Naltrexone HCl 50 MG TABLET PO (08:34)
[2022-03-04] MEDS: Gabapentin 400 MG CAPSULE PO ×2 (08:34→21:34)
[2022-03-04] MEDS: predniSONE 20 MG TABLET PO (08:34)
[2022-03-04] MEDS: amLODIPine Besylate 5 MG TABLET PO (08:34)
[2022-03-04] MEDS: Loratadine 10 MG TABLET PO (08:34)
[2022-03-04] MEDS: Vortioxetine Hydrobromide 10 MG TABLET PO (08:34)
[2022-03-04] MEDS: Montelukast Sodium 10 MG TABLET PO (08:34)
[2022-03-04] MEDS: Nicotine 14 MG PATCH.TD24 TRANSDERMA (08:35)
[2022-03-04] MEDS: Docusate Sodium 100 MG CAPSULE 200 MG PO (08:35)
[2022-03-04] MEDS: Folic Acid 1 MG TABLET PO (08:35)
[2022-03-04] MEDS: Acamprosate Calcium 333 MG TABLET.DR 666 MG PO ×3 (08:35→21:33)
[2022-03-04] MEDS: 0.9 % Sodium Chloride Flush 3 ML SYRINGE IVFLUSH (08:36)
[2022-03-04] MEDS: Fluticasone Propionate Nasal 16 GM SPRAY 1 SPRAY NOSTRIL-B (08:41)
[2022-03-04] MEDS: guaiFENesin DM 100/10/5 ML 5 ML SYRUP 10 ML PO ×3 (08:41→21:34)
[2022-03-04] MEDS: clonazePAM 1 MG TABLET PO ×3 (09:04→21:34)
--- NOTE | 2022-03-04 11:18 | HO.PM.IMPN ---
Subjective Subjective Date of Service: 03/04/22 Interval History: Still with mild shortness of breath. Continues with O2 requirement Review of Systems Denies chest pain Denies nausea vomiting diarrhea Denies fever chills Admits shortness of breath with exertion Physical Exam Vital Signs: Vital Signs: Last Vital Signs Temp 98.4 F 03/04/22 11:00 Pulse 97 03/04/22 11:00 Resp 18 03/04/22 11:00 BP 124/64 03/04/22 11:00 Pulse Ox 92 03/04/22 11:00 O2 Del Method 03/04/22 11:00 O2 Flow Rate 2 03/04/22 11:00 FiO2 96 03/02/22 04:00 BMI result Body Mass Index 32.8 Const: Other: Awake alert no acute distress Resp: Other: Diminished right base with scant crackles otherwise clear throughout Cardio: Other: No S4; positive S1-S2; no S3 murmurs rubs or gallops GI: Other: Soft nontender nondistended normoactive bowel sounds Extrem: Other: No edema bilaterally Objective Data Active Medications Acamprosate (Acamprosate Calcium 333 Mg Tablet.) 666 mg PO TID [facility] Last Admin: 03/04/22 08:35 Dose: 666 mg Documented By: DEMETRIO Acetaminophen (Acetaminophen 325 Mg Tablet) 650 mg PO Q6H PRN PRN Reason: Pain, Mild (Pain Scale 1-3) Last Admin: 03/04/22 05:46 Dose: 650 mg Documented By: KATERINA Acetaminophen/Butalbital/Caffeine (Butalb/Acetamin/Caff 50/325/40 Tablet) 1 tab PO Q4H PRN PRN Reason: Headache Al Hydroxide/Mg Hydroxide (Magnesium Hydrox/Alum Hydrox 30 Ml Oral.Susp) 30 ml PO DAILY PRN PRN Reason: Constipation Last Admin: 03/03/22 21:09 Dose: 30 ml Documented By: KATERINA Amlodipine Besylate (Amlodipine Besylate 5 Mg Tablet) 5 mg PO DAILY [facility]; Protocol Last Admin: 03/04/22 08:34 Dose: 5 mg Documented By: DEMETRIO Baclofen (Baclofen 10 Mg Tablet) 10 mg PO BEDTIME [facility] Last Admin: 03/03/22 20:54 Dose: 10 mg Documented By: [email or web address] Benzonatate (Benzonatate 100 Mg Capsule) 200 mg PO TID PRN PRN Reason: cough Last Admin: 03/02/22 20:11 Dose: 200 mg Documented By: MIGUEL Clonazepam (Clonazepam 1 Mg Tablet) 1 mg PO TID [facility] Last Admin: 03/04/22 09:04 Dose: 1 mg Documented By: DEMETRIO Albuterol Sulfate 2.5 mg/ (Ipratropium [place] 0.5 mg) 0 mg INHALE RQ6H WHILE AWAKE [facility] Last Admin: 03/04/22 07:57 Dose: 2.5 each Documented By: MARY Docusate Sodium (Docusate Sodium 100 Mg Capsule) 200 mg PO DAILY [facility] Last Admin: 03/04/22 08:35 Dose: 200 mg Documented By: DEMETRIO Fluticasone Propionate (Fluticasone Propionate Nasal 16 Gm [place]) 1 spray NOSTRIL-B DAILY [facility] Last Admin: 03/04/22 08:41 Dose: 1 spray Documented By: DEMETRIO Folic Acid (Folic Acid 1 Mg Tablet) 1 mg PO DAILY [facility] Last Admin: 03/04/22 08:35 Dose: 1 mg Documented By: DEMETRIO Gabapentin (Gabapentin 400 Mg Capsule) 400 mg PO BID [facility] Last Admin: 03/04/22 08:34 Dose: 400 mg Documented By: DEMETRIO Guaifenesin/Dextromethorphan (Guaifenesin Dm 100/10/5 Ml 5 Ml Syrup) 10 ml PO TID [facility] Last Admin: 03/04/22 08:41 Dose: 10 ml Documented By: DEMETRIO Ceftriaxone Sodium 1 gm/ (Sodium Chloride) 50 mls @ 100 mls/hr IV Q24H [facility] Last Infusion: 03/03/22 18:54 Dose: 0 mls/hr Documented By: URBAN Azithromycin 500 mg/ Sodium (Chloride) 250 mls @ 125 mls/hr IV Q24H [facility] Last Infusion: 03/03/22 23:04 Dose: 0 mls/hr Documented By: JA Loratadine (Loratadine 10 Mg Tablet) 10 mg PO DAILY [facility] Last Admin: 03/04/22 08:34 Dose: 10 mg Documented By: DEMETRIO Montelukast Sodium (Montelukast Sodium 10 Mg Tablet) 10 mg PO DAILY [facility] Last Admin: 03/04/22 08:34 Dose: 10 mg Documented By: DEMETRIO Multivitamins/Vitamin C (Multivitamin Tablet) 1 tab PO DAILY [facility] Last Admin: 03/04/22 08:34 Dose: 1 tab Documented By: DEMETRIO Naltrexone HCl (Naltrexone Hcl 50 Mg Tablet) 50 mg PO DAILY [facility] Last Admin: 03/04/22 08:34 Dose: 50 mg Documented By: DEMETRIO Nicotine (Nicotine 14 Mg Patch.Td24) 14 mg TRANSDERMA DAILY [facility] Last Admin: 03/04/22 08:35 Dose: 14 mg Documented By: DEMETRIO Omeprazole (Omeprazole 20 Mg Capsule.Dr) 20 mg PO BID@0630,1630 [facility] Last Admin: 03/04/22 05:46 Dose: 20 mg Documented By: KATERINA Ondansetron HCl (Ondansetron Hcl 4 Mg/2 Ml Vial) 4 mg IVPUSH Q8H PRN PRN Reason: Nausea and Vomiting Oxycodone HCl (Oxycodone Hcl Immed Release 5 Mg Tablet) 5 mg PO Q6H PRN PRN Reason: Pain, Severe (Pain Scale 7-10) Last Admin: 03/02/22 09:10 Dose: 5 mg Documented By: ARMANDO Pharmacy Consult (Consult Rx Perform Med Rec) 1 each MISCELLANE ONCE PRN PRN Reason: Consult order Prednisone (Prednisone 20 Mg Tablet) 20 mg PO DAILY [facility] Last Admin: 03/04/22 08:34 Dose: 20 mg Documented By: DEMETRIO Sodium Chloride (0.9 % Sodium Chloride Flush 3 Ml Syringe) 3 ml IVFLUSH [facility] Last Admin: 03/04/22 08:36 Dose: 3 ml Documented By: DEMETRIO Sodium Chloride (0.9 % Sodium Chloride Flush 3 Ml Syringe) 3 ml IVFLUSH [facility] Last Admin: 03/04/22 08:36 Dose: Not Given Documented By: DEMETRIO Non-Admin Reason: Duplicate Order Thiamine HCl (Thiamine Hcl 100 Mg Tablet) 100 mg PO DAILY [facility] Last Admin: 03/04/22 08:34 Dose: 100 mg Documented By: DEMETRIO Tramadol HCl (Tramadol Hcl 50 Mg Tablet) 50 mg PO ONCE PRN PRN Reason: Pain, Moderate (Pain Scale 4-6 Last Admin: 03/02/22 20:10 Dose: 50 mg Documented By: MIGUEL Tramadol HCl (Tramadol Hcl 50 Mg Tablet) 50 mg PO Q6H PRN PRN Reason: Pain, Moderate (Pain Scale 4-6 Last Admin: 03/03/22 21:09 Dose: 50 mg Documented By: KATERINA Vortioxetine (Vortioxetine Hydrobromide 10 Mg Tablet) 10 mg PO DAILY [facility] Last Admin: 03/04/22 08:34 Dose: 10 mg Documented By: FOSTEKR Labs 03/03/22 06:28 02/27/22 Unknown Assessment and Plan (1) Pneumonia: Status: Acute (2) COPD exacerbation: Status: Acute (3) HTN (hypertension): Status: Acute Plan 48-year-old woman admitted with acute COPD exacerbation/right lower lobe infiltrate 1.Commmunity-acquired pneumonia / COPD exacerbation -Rocephin and azithromycin day 6/, -wean O2 as tolerated -continue IV Solu-Medrol -p.r.n. DuoNebs . 2.Hypertension -acceptable control on current therapy -adjust as indicated 3.History of alcohol abuse - Continue PPI, and Campral DVT prophylaxis with pneumatic compression boots Full code Patient will need continued inpatient stay for treatment of acute hypoxic respiratory failure secondary to COPD, community-acquired pneumonia necessitating IV antibiotics and oxygen. Time Spent With Patient Time: Total time managing care of this patient today ____ minutes. Quality Stroke Does the patient have a stroke diagnosis?: No VTE Prior VTE?: No VTE Risk Level:: Medical - moderate - high VTE Device Contraindication: N/A - Device Ordered VTE Drug Contraindication: Treatment Not Indicated
[2022-03-04] MEDS: cefTRIAXone sodium 1 GM in 0.9 % Sodium Chloride 50 ML IV (13:27)
[2022-03-04] MEDS: Baclofen 10 MG TABLET PO (21:34)
[2022-03-04] MEDS: traMADoL HCL 50 MG TABLET PO (21:40)
[2022-03-05 04:00] VITALS: BP 111/60; PULSE 88; RESP 20; TEMP 36.4; O2SAT 91
[2022-03-05] MEDS: Omeprazole 20 MG CAPSULE.DR PO (05:39)
[2022-03-05 06:02] LABS: Hematocrit 38.8 % (37.0-47.0); Hemoglobin 12.3 g/dl (12.0-16.0); Mean Corpuscular HGB Conc 31.7 g/dl (31.0-35.0); Mean Corpuscular Hemoglobin 31.5 pg (27.0-33.0); Mean Corpuscular Volume 99.5 fL (80.0-98.0); Mean Platelet Volume 9.1 fL (9.4-12.3); Platelet Count 694 X10*3/uL (160-400); Red Cell Distribution Width 13.6 % (11.0-16.0); White Blood Count 12.7 X10*3/uL (4.8-10.8)
[2022-03-05 06:20] LABS: Alanine Aminotransferase 34 U/L (0-31); Albumin Level 3.1 g/dL (3.5-5.0); Alkaline Phosphatase 238 U/L (39-117); Anion Gap 14 (12-20); Aspartate Amino Transferase 13 U/L (5-31); Bilirubin Total 0.3 mg/dL (0.0-1.0); Blood Urea Nitrogen 18 mg/dL (9-16); Calcium 9.3 mg/dL (8.4-10.2); Carbon Dioxide 32 mmol/L (22-29); Chloride 98 mmol/L (96-108); Creatinine Clr Calc Pharmacy 90.4; Estimated Glomerular Filt Rate > 60; Glucose Fasting 102 mg/dL (60-99); Sodium 139 mmol/L (135-145); Total Protein 6.1 g/dL (6.5-8.0)
[2022-03-05] MEDS: clonazePAM 1 MG TABLET PO (06:38)
[2022-03-05 07:26] VITALS: BP 128/58; PULSE 88; RESP 16; TEMP 36.2; O2SAT 90
[2022-03-05 07:28] VITALS: PULSE 86; RESP 18; O2SAT 88
[2022-03-05] MEDS: guaiFENesin DM 100/10/5 ML 5 ML SYRUP 10 ML PO (07:52)
[2022-03-05] MEDS: Acamprosate Calcium 333 MG TABLET.DR 666 MG PO (07:52)
[2022-03-05] MEDS: Nicotine 14 MG PATCH.TD24 TRANSDERMA (07:52)
[2022-03-05] MEDS: predniSONE 20 MG TABLET PO (07:53)
[2022-03-05] MEDS: Gabapentin 400 MG CAPSULE PO (07:53)
[2022-03-05] MEDS: Naltrexone HCl 50 MG TABLET PO (07:53)
[2022-03-05] MEDS: Vortioxetine Hydrobromide 10 MG TABLET PO (07:53)
[2022-03-05] MEDS: Loratadine 10 MG TABLET PO (07:54)
[2022-03-05] MEDS: Montelukast Sodium 10 MG TABLET PO (07:54)
[2022-03-05] MEDS: Thiamine HCL 100 MG TABLET PO (07:54)
[2022-03-05] MEDS: Multivitamin TABLET 1 TAB PO (07:54)
[2022-03-05] MEDS: Folic Acid 1 MG TABLET PO (07:54)
[2022-03-05] MEDS: Docusate Sodium 100 MG CAPSULE 200 MG PO (07:54)
[2022-03-05] MEDS: amLODIPine Besylate 5 MG TABLET PO (07:54)
[2022-03-05] MEDS: Fluticasone Propionate Nasal 16 GM SPRAY 1 SPRAY NOSTRIL-B (07:55)
[2022-03-05] MEDS: Acetaminophen 325 MG TABLET 650 MG PO (08:00)
[2022-03-05 11:12] VITALS: BP 133/61; PULSE 88; RESP 20; TEMP 36; O2SAT 95
[2022-03-05 11:56] VITALS: PULSE 103; PULSE 105; PULSE 79; PULSE 86; PULSE 95; O2SAT 88; O2SAT 91; O2SAT 94; O2SAT 99
--- NOTE | 2022-03-05 12:35 | PM.DS ---
DS: Providers Provider Date of Service: 03/05/22 Date of admission: 02/27/22 18:02 Date of discharge: 03/05/22 Primary care physician: Sandi Andrade MD DS: Diagnosis Discharge Diagnosis (1) Pneumonia: Status: Acute (2) COPD exacerbation: Status: Acute (3) HTN (hypertension): Status: Acute DS: Summary Hospital Course Hospital Course: 48-year-old woman history of COPD presenting to the ER with complaints of worsening shortness of breath.? She reports she was diagnosed with COVID approximately 2 weeks ago and has felt unwell since then.? She reports that she has been on steroids and antibiotics in the interim but has continued to feel unwell.? She reports fever, cough and shortness of breath.? She reported being on prednisone and doxycycline on 02/22/2022 which was prescribed by her primary care provider and completed a 5 day course.? She denies recent travel, sick contacts.? In the ER flu, COVID and RSV was negative, chest CTA was negative for PE but showed right-sided pleural effusion with dense consolidations.? She was also noted to be hypoxic with oxygen saturation as low as 70% she was placed on high-flow.? Her oxygen saturation did come up to above 90% but with activity she does go down significantly into the low 80s.? She was noted to have leukocytosis, tachypnea and tachycardia with normal lactic acid.? INR 1.2.? ABG 7.49/53/64/41.? In the ER she was given albuterol, Solu-Medrol, Rocephin, azithromycin.? She will be admitted for further management and treatment of acute hypoxic respiratory failure secondary to COPD Hospital course Admitted to telemetry and started on azithromycin and ceftriaxone to treat community-acquired pneumonia. CT scan originally demonstrated a large right pleural effusion however when thoracentesis was attempted ultrasound failed to demonstrate the presence of an effusion. Patient continue to improve and was switched to oral therapies. She was screened by respiratory and qualifies for home O2 in the short term. She will be discharged to complete a course of Ceftin and can follow-up with her nurses supervisor and he can determine the duration of oxygen therapy Time Spent with Patient Time attestation: Total time managing care of this patient today ____ minutes. Discharge coordination time: Greater than 30 minutes Quality: Safe Use of Opioids Does Pt have an Active Cancer Diagnosis on the Problem List?: No Quality: Stroke Does the patient have a stroke diagnosis?: No Physical Exam Vital Signs: Vital Signs: Last Vital Signs Temp 96.8 F 03/05/22 11:12 Pulse 88 03/05/22 11:12 Resp 20 03/05/22 11:12 BP 133/61 03/05/22 11:12 Pulse Ox 95 03/05/22 11:12 O2 Del Method 03/05/22 11:12 O2 Flow Rate 2 03/05/22 11:12 FiO2 96 03/02/22 04:00 BMI result Body Mass Index 32.8 Const: Other: Awake alert no acute distress Resp: Other: Diminished right base with scant crackles otherwise clear throughout Cardio: Other: No S4; positive S1-S2; no S3 murmurs rubs or gallops GI: Other: Soft nontender nondistended normoactive bowel sounds Extrem: Other: No edema bilaterally DS: Data Data Completed and Pending Labs on day of discharge: Laboratory Results - last 24 hr 03/05/22 03/05/22 05:55 05:55 WBC 12.7 H RBC 3.90 L Hgb 12.3 Hct 38.8 MCV 99.5 H MCH 31.5 MCHC 31.7 RDW 13.6 Plt Count 694 H MPV 9.1 L Absolute Nucleated RBC 0.000 Nucleated RBC % (auto) 0.0 Sodium 139 Potassium 5.0 Chloride 98 Carbon Dioxide 32 H Anion Gap 14 BUN 18 H Creatinine 0.75 Estim Creat Clear Calc 90.4 Estimated GFR > 60 Fasting Glucose 102 H Calcium 9.3 D Total Bilirubin 0.3 AST 13 ALT 34 H Alkaline Phosphatase 238 H Total Protein 6.1 L Albumin 3.1 L Discharge Plan Discharge Anticipated Discharge Date/Time: 03/05/22 12:29 Patient Disposition: Home, Self-Care Discharge Diagnosis: Sepsis secondary to pneumonia Referrals: Sandi Andrade MD [Primary Care Provider] - 1 Week Discharge Medications: New cefuroxime axetil 500 mg Tablet 500 mg PO Q12H Qty: 10 0RF Continued loratadine 10 mg tablet 10 mg PO DAILY Qty: 90 0RF multivitamin Tablet 1 tab PO DAILY Qty: 100 3RF fluticasone propionate 50 mcg/actuation spray,suspension 1 spray intranasal DAILY Qty: 48 1RF amlodipine 5 mg tablet 5 mg PO DAILY Qty: 90 3RF folic acid 1 mg tablet 1 mg PO DAILY Qty: 90 1RF nicotine 14 mg/24 hr patch 24 hour 1 patch transdermal DAILY Qty: 28 6RF thiamine HCl (vitamin B1) 100 mg tablet 100 mg PO DAILY Qty: 90 3RF cholecalciferol (vitamin D3) 50 mcg (2,000 unit) capsule 50 mcg PO DAILY Qty: 90 3RF albuterol sulfate 90 mcg/actuation HFA aerosol inhaler 2 puff inhalation Q6H PRN (Reason: for wheezing) Qty: 8.5 3RF montelukast 10 mg tablet 10 mg PO DAILY Qty: 90 1RF baclofen 10 mg tablet 10 mg PO BEDTIME Qty: 30 3RF fluticasone propion-salmeterol [Wixela Inhub] 250-50 mcg/dose blister with device 1 puff INHALATION BID ipratropium-albuterol 0.5 mg-3 mg(2.5 mg base)/3 mL solution for nebulization 3 ml inhalation QID naltrexone 50 mg tablet 1 tab PO DAILY zxywiqzfhf-znauomscgmnzi-qkre 50-325-40 mg tablet 1 tab PO Q4H PRN (Reason: Headache) ondansetron 4 mg tablet,disintegrating 1 tab PO TID PRN (Reason: Nausea) Trintellix 10 mg tablet 1 tab PO DAILY pantoprazole 40 mg tablet,delayed release (DR/EC) 40 mg PO BID acamprosate 333 mg tablet,delayed release (DR/EC) 2 tab PO TID clonazepam 1 mg tablet 1 mg PO TID gabapentin 400 mg capsule 400 mg PO BID Discontinued doxycycline hyclate 100 mg capsule 1 cap PO BID Discharge Orders: Discharge Order (Routine); Ordered 03/05/22 Ordered By: Artis Tellez Diet: Advance to usual diet Activity on Discharge: As tolerated Stand Alone Forms: Patient Portal Discharge page Care Plan Goals: Complete course of Ceftin as ordered Health Concerns: Utilize O2 as ordered at home. Follow-up with her nurses supervisor in 2 weeks Plan of Treatment: Continue all other pre-hospital medicines Assessment: See discharge summary
--- NOTE | 2022-03-05 13:16 | MHC.CM.PN ---
Patient is discharged to home self care. She has New Oxygen. Martin is the O2 provider. Pts spouse will accept the O2 delivery. Once O2 received Spouse will provide patients transport home.
== END 2022-03-05 15:32 | disposition home or self-care (01) | DRG 871 ==
LOC: HO.ED 17:19 → HO.EDOVER 18:04 → HO.IMC 02-28 00:58
PROVIDERS: Hospitalist; Nurse Practitioner Family; Physician Assistant; Radiology Diagnostic Radiology; Admitting Provider Nurse Practitioner Acute Care; Emergency Provider Emergency Medicine; PCP Internal Medicine; Visit Provider Hospitalist
DX: A41.9 Sepsis, unspecified organism (principal); J18.9 Pneumonia, unspecified organism; J96.01 Acute respiratory failure with hypoxia; J44.0 Chronic obstructive pulmonary disease with (acute) lower respiratory infection; J44.1 Chronic obstructive pulmonary disease with (acute) exacerbation; F41.9 Anxiety disorder, unspecified; F32.A Depression, unspecified; R13.10 Dysphagia, unspecified; I10 Essential (primary) hypertension; Z68.32 Body mass index [BMI] 32.0-32.9, adult; F10.11 Alcohol abuse, in remission; E66.9 Obesity, unspecified; G47.33 Obstructive sleep apnea (adult) (pediatric); Z87.891 Personal history of nicotine dependence; Z86.16 Personal history of COVID-19; Z79.51 Long term (current) use of inhaled steroids; Z79.899 Other long term (current) drug therapy
CPT/HCPCS: 0241U; 36415; 71046; 71275; 76604; 80053; 80076; 82803; 82947; 83605; 83615; 83880; 84155; 84484; 85025; 85027; 85610; 85730; 87040; 93005; 94640; 99284; J0456; J0696; J2920; J2930; J3475; Q9967

== ENCOUNTER → 2022-03-15 13:53 | Outpatient (BNVA) | payer OTHER, SELFPAY | PROVIDERS: PCP Internal Medicine; Visit Provider Internal Medicine | DX: J44.9 Chronic obstructive pulmonary disease, unspecified (principal); J98.11 Atelectasis; J18.9 Pneumonia, unspecified organism; J96.91 Respiratory failure, unspecified with hypoxia; J30.9 Allergic rhinitis, unspecified; Z87.891 Personal history of nicotine dependence | CPT/HCPCS: 99212 ==

== ENCOUNTER 2022-04-05 13:58 | Outpatient (REF) | payer OTHER, SELFPAY ==
--- NOTE | ~2022-04-05 | XR_ITS ---
EXAMINATION: XR CHEST 2 VIEWS CLINICAL INFORMATION: Pneumonia. COMPARISON: CTA chest and chest radiographs dated 02/27/2022. TECHNIQUE: Frontal and lateral views of the chest were obtained. FINDINGS: The heart, great vessels, pulmonary vasculature and mediastinum are normal. There is significant interim improvement in previously seen right middle and lower lung field airspace disease, without full resolution. There is persistent right suprahilar fullness, increased from prior chest radiographs including 10/13/2018. No pleural effusion is presently seen. The left lung is clear. There is no pneumothorax. There is no acute osseous abnormality. XR/XR chest 2V IMPRESSION: There is significant interim clearance of previously seen right pleural and parenchymal disease, with mild residual airspace disease noted within the mid and lower right lung. There is persistent mild right suprahilar fullness. Recommend radiographic follow-up to full clearance.
== END 2022-04-05 13:59 | disposition home or self-care (01) ==
LOC: HO.XRAY 13:58
PROVIDERS: PCP Internal Medicine; Visit Provider Internal Medicine
DX: J18.9 Pneumonia, unspecified organism (principal); J98.11 Atelectasis; J96.91 Respiratory failure, unspecified with hypoxia
CPT/HCPCS: 71046; 99212

== ENCOUNTER → 2022-04-09 11:34 | Outpatient (BNVA) | payer OTHER, SELFPAY | PROVIDERS: PCP Internal Medicine; Visit Provider Physician Assistant | DX: M25.561 Pain in right knee (principal); M17.11 Unilateral primary osteoarthritis, right knee; M70.51 Other bursitis of knee, right knee | CPT/HCPCS: 99212 ==

== ENCOUNTER → 2022-04-11 11:34 | Outpatient (BNVA) | payer OTHER, SELFPAY | PROVIDERS: PCP Internal Medicine; Visit Provider Physician Assistant Surgical | DX: Z13.89 Encounter for screening for other disorder (principal) ==

== ENCOUNTER 2022-04-18 09:44 | Outpatient (REF) | payer OTHER, SELFPAY ==
--- NOTE | ~2022-04-18 | XR_ITS ---
EXAMINATION: LEFT-SIDED RIBS, LEFT SHOULDER, LEFT HIP, SACRUM AND COCCYX CLINICAL INFORMATION: Hip pain COMPARISON: Left shoulder 08/11/2021 , CT angiogram chest 02/27/2022 TECHNIQUE: 4 views left shoulder, single view chest with 3 additional views right RIBS, 3 views sacrum and coccyx, 2 views left hip FINDINGS: Shoulder: There is a new subchondral erosion beneath the greater tubercle compared to the prior exam which may be seen with bursitis/rotator cuff disease. No acute finding is seen. Chest and left RIBS: Heart size normal. Lungs hypoinflated. Right midlung atelectasis. Old healed left clavicular fracture. Chronic fractures involving the left eighth and ninth lateral ribs are again noted. On the 08/22/2021 study, nondisplaced acute fractures were present, difficult to see at that time. Sacrum and coccyx: No significant abnormality is seen. Left hip: No bone, joint or soft tissue abnormality is seen. XR/XR sacrum coccyx min 2V IMPRESSION: 1. No evidence of an acute osseous injury. 2. New subchondral erosion beneath the left greater tubercle. 3. Old healing left-sided rib fractures. 4. No evidence of an acute hip, sacral or coccygeal fracture.
--- NOTE | ~2022-04-18 | XR_ITS ---
EXAMINATION: LEFT-SIDED RIBS, LEFT SHOULDER, LEFT HIP, SACRUM AND COCCYX CLINICAL INFORMATION: Hip pain COMPARISON: Left shoulder 08/11/2021 , CT angiogram chest 02/27/2022 TECHNIQUE: 4 views left shoulder, single view chest with 3 additional views right RIBS, 3 views sacrum and coccyx, 2 views left hip FINDINGS: Shoulder: There is a new subchondral erosion beneath the greater tubercle compared to the prior exam which may be seen with bursitis/rotator cuff disease. No acute finding is seen. Chest and left RIBS: Heart size normal. Lungs hypoinflated. Right midlung atelectasis. Old healed left clavicular fracture. Chronic fractures involving the left eighth and ninth lateral ribs are again noted. On the 08/22/2021 study, nondisplaced acute fractures were present, difficult to see at that time. Sacrum and coccyx: No significant abnormality is seen. Left hip: No bone, joint or soft tissue abnormality is seen. XR/XR hip LT min 2V IMPRESSION: 1. No evidence of an acute osseous injury. 2. New subchondral erosion beneath the left greater tubercle. 3. Old healing left-sided rib fractures. 4. No evidence of an acute hip, sacral or coccygeal fracture.
--- NOTE | ~2022-04-18 | XR_ITS ---
EXAMINATION: LEFT-SIDED RIBS, LEFT SHOULDER, LEFT HIP, SACRUM AND COCCYX CLINICAL INFORMATION: Hip pain COMPARISON: Left shoulder 08/11/2021 , CT angiogram chest 02/27/2022 TECHNIQUE: 4 views left shoulder, single view chest with 3 additional views right RIBS, 3 views sacrum and coccyx, 2 views left hip FINDINGS: Shoulder: There is a new subchondral erosion beneath the greater tubercle compared to the prior exam which may be seen with bursitis/rotator cuff disease. No acute finding is seen. Chest and left RIBS: Heart size normal. Lungs hypoinflated. Right midlung atelectasis. Old healed left clavicular fracture. Chronic fractures involving the left eighth and ninth lateral ribs are again noted. On the 08/22/2021 study, nondisplaced acute fractures were present, difficult to see at that time. Sacrum and coccyx: No significant abnormality is seen. Left hip: No bone, joint or soft tissue abnormality is seen. XR/XR ribs LT 2V IMPRESSION: 1. No evidence of an acute osseous injury. 2. New subchondral erosion beneath the left greater tubercle. 3. Old healing left-sided rib fractures. 4. No evidence of an acute hip, sacral or coccygeal fracture.
--- NOTE | ~2022-04-18 | XR_ITS ---
EXAMINATION: LEFT-SIDED RIBS, LEFT SHOULDER, LEFT HIP, SACRUM AND COCCYX CLINICAL INFORMATION: Hip pain COMPARISON: Left shoulder 08/11/2021 , CT angiogram chest 02/27/2022 TECHNIQUE: 4 views left shoulder, single view chest with 3 additional views right RIBS, 3 views sacrum and coccyx, 2 views left hip FINDINGS: Shoulder: There is a new subchondral erosion beneath the greater tubercle compared to the prior exam which may be seen with bursitis/rotator cuff disease. No acute finding is seen. Chest and left RIBS: Heart size normal. Lungs hypoinflated. Right midlung atelectasis. Old healed left clavicular fracture. Chronic fractures involving the left eighth and ninth lateral ribs are again noted. On the 08/22/2021 study, nondisplaced acute fractures were present, difficult to see at that time. Sacrum and coccyx: No significant abnormality is seen. Left hip: No bone, joint or soft tissue abnormality is seen. XR/XR shoulder LT min 2V IMPRESSION: 1. No evidence of an acute osseous injury. 2. New subchondral erosion beneath the left greater tubercle. 3. Old healing left-sided rib fractures. 4. No evidence of an acute hip, sacral or coccygeal fracture.
== END 2022-04-18 09:45 | disposition home or self-care (01) ==
LOC: HO.HMGCX 09:44
PROVIDERS: PCP Internal Medicine; Visit Provider Nurse Practitioner Family
DX: M25.512 Pain in left shoulder (principal); M25.552 Pain in left hip; M53.3 Sacrococcygeal disorders, not elsewhere classified; R07.81 Pleurodynia; W19.XXXA Unspecified fall, initial encounter
CPT/HCPCS: 71100; 72220; 73030; 73502

== ENCOUNTER 2022-05-10 08:48 | Outpatient (REF) | payer OTHER, SELFPAY ==
[2022-05-10 11:12] LABS: MANUAL DIFF FLAG NO
[2022-05-10 11:21] LABS: Basophils Absolute Auto 0.1 X10*3/uL (0.0-0.2); Basophils Percent Auto 1.3 % (0-2); Eosinophils Absolute Auto 0.1 X10*3/uL (0.0-0.4); Eosinophils Percent Auto 2.2 % (0-4); Hematocrit 40.3 % (37.0-47.0); Hemoglobin 12.7 g/dl (12.0-16.0); Imm Gran Abs Auto 0.01 X10*3/uL (0.00-0.03); Imm Gran Pct Auto 0.2 % (0.0-0.4); Lymphocytes Absolute Auto 2.9 X10*3/uL (1.2-4.9); Lymphocytes Percent Auto 45.7 % (20-40); Mean Corpuscular HGB Conc 31.5 g/dl (31.0-35.0); Mean Corpuscular Hemoglobin 30.7 pg (27.0-33.0); Mean Corpuscular Volume 97.3 fL (80.0-98.0); Mean Platelet Volume 10.1 fL (9.4-12.3); Monocytes Absolute Auto 0.4 X10*3/uL (0.1-1.2); Monocytes Percent Auto 6.6 % (2-11); Neutrophils Absolute Auto 2.7 x10*3/uL (2.0-8.3); Red Blood Count 4.14 X10*6/uL (4.20-5.50); Red Cell Distribution Width 12.4 % (11.0-16.0); White Blood Count 6.2 X10*3/uL (4.8-10.8)
[2022-05-10 11:29] LABS: Appearance Urine Clear; Color Urine Dark Yellow; Glucose Urine UA Negative (Negative); Leukocyte Esterase Urine Negative (Negative); Nitrite Urine Negative (Negative); Specific Gravity - Urine >= 1.030 (1.005-1.025); Urine Blood Negative (Negative); Urine Ketones Negative (Negative); Urine Protein Negative (Neg-Trace)
[2022-05-10 11:30] LABS: Platelet Count 248 X10*3/uL (160-400)
[2022-05-10 12:05] LABS: Alanine Aminotransferase 20 U/L (0-31); Alkaline Phosphatase 112 U/L (39-117); Anion Gap 13 (12-20); Aspartate Amino Transferase 18 U/L (5-31); Bilirubin Total 0.4 mg/dL (0.0-1.0); Blood Urea Nitrogen 17 mg/dL (9-16); Calcium 9.6 mg/dL (8.4-10.2); Carbon Dioxide 27 mmol/L (22-29); Chloride 105 mmol/L (96-108); Cholesterol 195 mg/dL; Estimated Glomerular Filt Rate > 60; Glucose Fasting 98 mg/dL (60-99); HDL Cholesterol 69 mg/dL; LDL Cholesterol Calculated 117 mg/dl; Potassium 4.4 mmol/L (3.3-5.1); Sodium 141 mmol/L (135-145); Total Protein 7.1 g/dL (6.5-8.0); Triglycerides 48 mg/dL
[2022-05-10 12:20] LABS: Folate 19.8 ng/mL (> or = 4.0); TSH reflex Free T4 0.95 uIU/mL (0.32-4.0); Vitamin B12 471 pg/mL (200-900)
== END 2022-05-10 08:49 | disposition home or self-care (01) ==
LOC: HO.HMGCLDS 08:48
PROVIDERS: PCP Internal Medicine; Visit Provider Internal Medicine
DX: I10 Essential (primary) hypertension (principal); E53.8 Deficiency of other specified B group vitamins; E55.9 Vitamin D deficiency, unspecified; J44.9 Chronic obstructive pulmonary disease, unspecified; R30.0 Dysuria
CPT/HCPCS: 36415; 80053; 80061; 81003; 82607; 82746; 84443; 85025

== ENCOUNTER 2022-05-13 15:04 | Emergency (ER) | payer OTHER, SELFPAY ==
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
[2022-05-13 15:23] VITALS: BP 127/78; BP 150/98; PULSE 88; PULSE 90; RESP 18; O2SAT 95; O2SAT 98; BMI 32.8
== END 2022-05-13 17:09 | disposition home or self-care (01) ==
PROVIDERS: Emergency Provider Emergency Medicine; PCP Internal Medicine
DX: S39.012A Strain of muscle, fascia and tendon of lower back, initial encounter (principal); R51.9 Headache, unspecified; M54.2 Cervicalgia; V43.62XA Car passenger injured in collision with other type car in traffic accident, initial encounter; Y93.9 Activity, unspecified; Y92.410 Unspecified street and highway as the place of occurrence of the external cause; Y99.9 Unspecified external cause status; Z79.899 Other long term (current) drug therapy; Z87.891 Personal history of nicotine dependence
CPT/HCPCS: 70450; 72125; 99282; 99283

== ENCOUNTER → 2022-05-21 13:47 | Outpatient (BNVA) | payer OTHER, SELFPAY | PROVIDERS: PCP Internal Medicine; Visit Provider Internal Medicine | DX: J44.9 Chronic obstructive pulmonary disease, unspecified (principal); J30.9 Allergic rhinitis, unspecified; J98.11 Atelectasis; J96.91 Respiratory failure, unspecified with hypoxia; Z99.81 Dependence on supplemental oxygen; Z87.891 Personal history of nicotine dependence | CPT/HCPCS: 99212 ==

== ENCOUNTER 2022-06-20 01:16 | Emergency (ER) | payer OTHER, SELFPAY ==
[2022-06-20 01:27] VITALS: PULSE 76; RESP 20; TEMP 37; O2SAT 95; BMI 35.4
--- NOTE | 2022-06-20 01:36 | ECG_ITS ---
Test Reason : CHEST PAIN Blood Pressure : / mmHG Vent. Rate : 078 BPM Atrial Rate : 078 BPM P-R Int : 132 ms QRS Dur : 074 ms QT Int : 388 ms P-R-T Axes : 053 016 049 degrees QTc Int : 442 ms Normal sinus rhythm Normal ECG When compared with ECG of 27-FEB-2022 13:12, Criteria for Septal infarct are no longer Present Referred By: Generic ED Physician Electronically Signed By:MORGAN PEMBERTON
[2022-06-20 01:54] LABS: MANUAL DIFF FLAG NO
[2022-06-20 01:55] LABS: Basophils Absolute Auto 0.1 X10*3/uL (0.0-0.2); Basophils Percent Auto 1.1 % (0-2); Eosinophils Absolute Auto 0.1 X10*3/uL (0.0-0.4); Eosinophils Percent Auto 1.2 % (0-4); Hematocrit 39.9 % (37.0-47.0); Hemoglobin 13.1 g/dl (12.0-16.0); Imm Gran Abs Auto 0.03 X10*3/uL (0.00-0.03); Imm Gran Pct Auto 0.3 % (0.0-0.4); Lymphocytes Absolute Auto 3.6 X10*3/uL (1.2-4.9); Lymphocytes Percent Auto 31.6 % (20-40); Mean Corpuscular HGB Conc 32.8 g/dl (31.0-35.0); Mean Corpuscular Volume 94.5 fL (80.0-98.0); Mean Platelet Volume 9.3 fL (9.4-12.3); Monocytes Absolute Auto 0.7 X10*3/uL (0.1-1.2); Monocytes Percent Auto 6.3 % (2-11); Neutrophils Absolute Auto 6.7 x10*3/uL (2.0-8.3); Neutrophils Percent Auto 59.5 % (45-73); Platelet Count 267 X10*3/uL (160-400); Red Blood Count 4.22 X10*6/uL (4.20-5.50); Red Cell Distribution Width 12.7 % (11.0-16.0); White Blood Count 11.2 X10*3/uL (4.8-10.8)
[2022-06-20 02:00] VITALS: BP 113/65; PULSE 73; RESP 18; TEMP 36.9; O2SAT 97
[2022-06-20 02:08] LABS: Anion Gap 12 (12-20); Blood Urea Nitrogen 18 mg/dL (9-16); Calcium 9.2 mg/dL (8.4-10.2); Carbon Dioxide 29 mmol/L (22-29); Chloride 103 mmol/L (96-108); Estimated Glomerular Filt Rate > 60; Glucose Random 123 mg/dL (60-115); Potassium 4.6 mmol/L (3.3-5.1); Sodium 139 mmol/L (135-145)
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
[2022-06-20 02:15] LABS: Troponin-I High Sensitivity 3.9 ng/L (<3.5-17.0)
[2022-06-20 03:24] LABS: Appearance Urine Clear; Color Urine Yellow; Glucose Urine UA Negative (Negative); Leukocyte Esterase Urine Negative (Negative); Nitrite Urine Negative (Negative); Urine Blood Negative (Negative); Urine Ketones Negative (Negative); Urine Protein Trace mg/dL (Neg-Trace)
[2022-06-20] MEDS: Morphine Sulfate 2 MG/ML CARTRIDGE 1 MG IVPUSH (03:25)
[2022-06-20 03:27] LABS: Bacteria Urine None Seen (None Seen); Hyaline Casts Urine 0-2 /LPF (0-2); RBC Urine 0-2 /HPF (0-2); WBC Urine 0-5 /HPF (0-5)
[2022-06-20 03:37] VITALS: BP 117/79; PULSE 78; RESP 16; TEMP 37; O2SAT 97
[2022-06-20 05:08] LABS: Troponin-I High Sensitivity 3.3 ng/L (<3.5-17.0)
[2022-06-20 06:27] VITALS: BP 111/61; PULSE 58; RESP 17; TEMP 36.8; O2SAT 96
== END 2022-06-20 07:45 | disposition home or self-care (01) ==
PROVIDERS: Emergency Provider Emergency Medicine; PCP Internal Medicine
DX: R07.89 Other chest pain (principal); F41.9 Anxiety disorder, unspecified; R06.02 Shortness of breath; Z79.899 Other long term (current) drug therapy
CPT/HCPCS: 36415; 80048; 81001; 84484; 85025; 93005; 96374; 99284; 99285; J2270

== ENCOUNTER 2022-06-21 15:45 | Emergency (ER) | payer OTHER, SELFPAY ==
--- NOTE | ~2022-06-21 | XR_ITS ---
EXAMINATION: XR ankle LT min 3V, XR foot LT 2V CLINICAL INFORMATION: Reason for Exam ankle pain COMPARISON: None. TECHNIQUE: Three views of the foot and 2 views of the ankle FINDINGS: Acute intra-articular avulsion fracture of the base of the fifth metatarsal. Moderate degenerative changes of the first metatarsophalangeal joint with loss of joint space. Plantar calcaneal spurring. No tibiotalar joint effusion. Mild soft tissue swelling about the foot and ankle. XR/XR foot LT 2V IMPRESSION: 1. Acute intra-articular avulsion fracture of the base of the fifth metatarsal. Mild soft tissue swelling about the foot and ankle. 2. Moderate degenerative changes of the first metatarsophalangeal joint with loss of joint space.
--- NOTE | ~2022-06-21 | XR_ITS ---
EXAMINATION: XR ankle LT min 3V, XR foot LT 2V CLINICAL INFORMATION: Reason for Exam ankle pain COMPARISON: None. TECHNIQUE: Three views of the foot and 2 views of the ankle FINDINGS: Acute intra-articular avulsion fracture of the base of the fifth metatarsal. Moderate degenerative changes of the first metatarsophalangeal joint with loss of joint space. Plantar calcaneal spurring. No tibiotalar joint effusion. Mild soft tissue swelling about the foot and ankle. XR/XR ankle LT min 3V IMPRESSION: 1. Acute intra-articular avulsion fracture of the base of the fifth metatarsal. Mild soft tissue swelling about the foot and ankle. 2. Moderate degenerative changes of the first metatarsophalangeal joint with loss of joint space.
[2022-06-21 16:34] VITALS: BP 128/78; PULSE 93; RESP 20; TEMP 36.6; O2SAT 94; BMI 32.4
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
== END 2022-06-21 17:51 | disposition home or self-care (01) ==
PROVIDERS: Emergency Provider Student in an Organized Health Care Education/Training Program; PCP Internal Medicine
DX: S92.902A Unspecified fracture of left foot, initial encounter for closed fracture (principal); M25.572 Pain in left ankle and joints of left foot; W10.9XXA Fall (on) (from) unspecified stairs and steps, initial encounter; Y93.9 Activity, unspecified; Y92.9 Unspecified place or not applicable; Y99.9 Unspecified external cause status
CPT/HCPCS: 73610; 73620; 99283

== ENCOUNTER → 2022-06-27 15:11 | Outpatient (BNVA) | payer OTHER, SELFPAY | PROVIDERS: PCP Internal Medicine; Visit Provider Physician Assistant | DX: S92.352A Displaced fracture of fifth metatarsal bone, left foot, initial encounter for closed fracture (principal) | CPT/HCPCS: 28470; 29405; 99202 ==

== ENCOUNTER → 2022-07-11 12:45 | Outpatient (BNVA) | payer OTHER, SELFPAY | PROVIDERS: PCP Internal Medicine; Visit Provider Physician Assistant | DX: S92.302D Fracture of unspecified metatarsal bone(s), left foot, subsequent encounter for fracture with routine healing (principal) | CPT/HCPCS: 29405 ==

== ENCOUNTER 2022-07-25 12:19 | Outpatient (REF) | payer OTHER, SELFPAY ==
--- NOTE | ~2022-07-25 | XR_ITS ---
EXAMINATION: XR FOOT, LEFT CLINICAL INFORMATION: Foot pain COMPARISON: Foot radiographs 06/21/2022 TECHNIQUE: AP, lateral, and oblique views of the left foot. FINDINGS: Comminuted avulsion fracture of the base of the fifth metatarsal without significant displacement. No gisselle bridging bony callus formation or periosteal reaction. Soft tissue swelling along the dorsum of the foot. Moderate degenerative changes of the foot unchanged worst involving the first metatarsophalangeal joint. No tibiotalar joint effusion. No acute fracture. XR/XR foot LT min 3V IMPRESSION: 1. Comminuted avulsion fracture of the base of the fifth metatarsal without significant displacement. No gisselle bridging bony callus formation or periosteal reaction. Soft tissue swelling along the dorsum of the foot. 2. Moderate degenerative changes of the foot unchanged worst involving the first metatarsophalangeal joint.
== END 2022-07-25 12:20 | disposition home or self-care (01) ==
LOC: HO.HOSX 12:19
PROVIDERS: Visit Provider Physician Assistant
DX: S92.352D Displaced fracture of fifth metatarsal bone, left foot, subsequent encounter for fracture with routine healing (principal); X58.XXXD Exposure to other specified factors, subsequent encounter
CPT/HCPCS: 73630; 99212

== ENCOUNTER 2022-09-05 11:42 | Outpatient (REF) | payer OTHER, SELFPAY ==
--- NOTE | ~2022-09-05 | XR_ITS ---
EXAMINATION: XR FOOT, LEFT CLINICAL INFORMATION: Left foot pain COMPARISON: 07/25/2022, 06/21/2022 TECHNIQUE: AP, lateral, and oblique views of the left foot. FINDINGS: There is interval healing of undisplaced fracture at the base of fifth metatarsal bone with callus formation. There is incidental findings of first metatarsophalangeal joint osteoarthritis, with narrowing and subchondral sclerosis. There is plantar calcaneal spurring XR/XR foot LT min 3V IMPRESSION: Interval healing of undisplaced fracture of the base of fifth metatarsal bone.
== END 2022-09-05 11:43 | disposition home or self-care (01) ==
LOC: HO.HOSX 11:42
PROVIDERS: Visit Provider Physician Assistant
DX: S92.352D Displaced fracture of fifth metatarsal bone, left foot, subsequent encounter for fracture with routine healing (principal); X58.XXXD Exposure to other specified factors, subsequent encounter
CPT/HCPCS: 73630

== ENCOUNTER 2022-09-05 13:28 | Outpatient (AMB) | payer OTHER, SELFPAY ==
--- NOTE | 2022-09-05 13:48 | MHC.OFFVIS ---
Intake Vital Signs 09/05/22 13:52 Height 5 ft 5 in Weight 195 lb BMI 32.4 Intake Visit Reasons: ov- L 5th Metatarsal Fx Intake Note: Annie a 56 year old female who presents today for a follow up of left 5th metatarsal fx, DOI 06/21/22. Patient reports that she discontinued use of walking boot due to being heavy and sweaty. She continues to have swelling and discomfort. Allergies lamotrigine [From LAMICTAL] Allergy (Severe, Verified 09/05/22 13:49) RASH sumatriptan [From IMITREX] Allergy (Intermediate, Verified 09/05/22 13:49) RASH HPI ov- L 5th Metatarsal Fx HPI Details 56-year-old female who returns to the office today for a follow-up of left 5th metatarsal fracture, 06/21/22. She continues to have swelling and discomfort in her foot but is doing well otherwise. She reports she discontinued the use of her walking boot due to being too heavy and sweaty. She has no other concerns today. [facility] Medical History Allergic rhinitis Anxiety and depression Asthma Atelectasis of right lung Cataract COPD (chronic obstructive pulmonary disease) Dysphagia ETOH abuse Ex-smoker GERD (gastroesophageal reflux disease) HTN (hypertension) Migraine Musculoskeletal pain SUNSHINE on CPAP Respiratory failure with hypoxia Vitamin B12 deficiency Vitamin D insufficiency Surgical History H/O colonoscopy History of esophagogastroduodenoscopy (EGD) History of total hysterectomy S/P PRINCESS (total abdominal hysterectomy) Family History Father Alcoholic Mother Diabetes mellitus HTN (hypertension) Mental health disorder Brother Substance use disorder Mental health disorder Brother Substance use disorder Daughter Mental health disorder Brother Substance use disorder Social History Household Members: Spouse Housing: House Do you presently have visiting nurse or other home services: No Alcohol intake: former Patient Tobacco Use Status: Former Tobacco user Quit Date: 7 MONTHS AGO Tobacco use type: Cigarette e-Cigarette/Vaping Use: Never Used Second Hand Smoke Exposure: No Substance Use Type: Crack/Cocaine Advance Directives Date on File: 02/28/22 service: No Current occupational status: disabled 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 She has no swelling or bruising over the lateral edge of the foot with no tenderness over the 4th and 5th metatarsal. NVI. Results Reviewed Results Reviewed: X-rays of the left foot obtained in the office today show non-displaced fracture through the base of 5th metatarsal with interval healing Assessment & Plan Assessment & Plan (1) Fracture of metatarsal of left foot, closed: Code(s): S92.302A - Fracture of unspecified metatarsal bone(s), left foot, initial encounter for closed fracture Plan She will begin increasing activity as tolerated with a regular street shoe. If she finds that she is overdoing her activity, she will rest, ice, elevate and take anti-inflammatories as needed. I did explain that over next 6 weeks she should continue to be cautious with her activities and may experiences occasional flareups. She may return to the office if she has any questions or concerns. Orders: Orders XR foot LT min 3V Today M79.672 - Pain in left foot Patient Instructions: Scribed for Jethro Quiles PA-C, by Javon Sifuentes medical assistant supervisor, on 09/05/2022 at 1:15 PM EST. IJethro PA-C, have personally reviewed and agree with the information entered by the scribe. Coding Level of Care Code Global (29218) Diagnoses Fracture of metatarsal of left foot, closed S92.302A
[2022-09-05 13:52] VITALS: BMI 32.4
== END 2022-09-05 13:55 | disposition home or self-care (01) ==
PROVIDERS: PCP Internal Medicine; Visit Provider Physician Assistant
DX: S92.302A Fracture of unspecified metatarsal bone(s), left foot, initial encounter for closed fracture (principal)
CPT/HCPCS: 99024

== ENCOUNTER 2022-10-04 10:55 | Outpatient (REF) | payer OTHER, SELFPAY ==
--- NOTE | ~2022-10-04 | XR_ITS ---
EXAMINATION: XR CHEST CLINICAL INFORMATION: Respiratory failure. COMPARISON: Chest radiographs dated 09/04/2018. TECHNIQUE: 2 views of the chest were obtained. FINDINGS: No significant abnormality is noted involving the heart, lungs, mediastinum, bony thorax or soft tissues. XR/XR chest 2V IMPRESSION: No acute cardiopulmonary process.
== END 2022-10-04 10:56 | disposition home or self-care (01) ==
LOC: HO.XRAY 10:55
PROVIDERS: PCP Internal Medicine; Visit Provider Internal Medicine
DX: J98.11 Atelectasis (principal); J96.90 Respiratory failure, unspecified, unspecified whether with hypoxia or hypercapnia; F17.200 Nicotine dependence, unspecified, uncomplicated; F10.10 Alcohol abuse, uncomplicated; F41.9 Anxiety disorder, unspecified; J44.9 Chronic obstructive pulmonary disease, unspecified
CPT/HCPCS: 71046; 99212

== ENCOUNTER 2022-10-04 10:55 | Outpatient (AMB) | payer OTHER, SELFPAY ==
[2022-10-04 11:05] VITALS: BP 102/74; PULSE 104; O2SAT 95; BMI 34.4
--- NOTE | 2022-10-04 11:05 | A.OFFVIS_ITS ---
Intake Vital Signs 10/04/22 11:05 Height 5 ft 5 in Weight 207 lb BMI 34.4 BP 102/74 Blood Pressure Location Lt brachial Position Sitting Pulse 104 H Pulse Source Pulse Oximeter Pulse Oximetry (%) 95 Oxygen Delivery Method Room Air Intake Visit Reasons: COPD Intake Note: pt is here for follow up and is having great amount of stress, her pass ed away in June, and she has not been feeling well, coughing with production, in am, green and as day goes on it gets better. 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 Allergies lamotrigine [From LAMICTAL] Allergy (Severe, Verified 10/04/22 11:27) RASH sumatriptan [From IMITREX] Allergy (Intermediate, Verified 10/04/22 11:27) RASH Medication List - Last Reconciled 10/04/22 by Tremaine Murphy MD acamprosate 2 tabs PO TID albuterol sulfate 90 mcg/actuation 2 puffs inhalation Q6H PRN amlodipine 5 mg PO DAILY baclofen 10 mg PO BEDTIME bupropion HCl 150 mg PO DAILY bwstewnvhr-ozpikrlauzyno-rpks 50-325-40 mg 1 tab PO Q4H PRN cholecalciferol (vitamin D3) 50 mcg PO DAILY clonazepam 1 mg PO TID cyclobenzaprine 10 mg PO TID PRN fluticasone propion-salmeterol 250-50 mcg/dose (Wixela Inhub) 1 ea PO BID 30 days fluticasone propionate 50 mcg/actuation 1 spray intranasal DAILY gabapentin 400 mg PO TID ibuprofen 600 mg PO Q8H PRN [Kneeling Scooter As directed] lidocaine 5% 1 patch topical DAILY loratadine 10 mg PO DAILY montelukast 10 mg PO DAILY multivitamin 1 tab PO DAILY naltrexone 50 mg PO DAILY ondansetron 1 tab PO TID PRN pantoprazole 40 mg PO DAILY umeclidinium 62.5 mcg/actuation (Incruse Ellipta) 1 inh inhalation DAILY Do you need a note to return to daycare/school/sports/work: No HPI COPD HPI Details This 56 years old female is here for her routine pulmonary follow-up. Claims that her breathing is fairly stable overall, but lately she is having increased bouts of cough. About 1 week ago she choked on a corn, . Which she coughed up 2 days later Since then the cough is somewhat increased. She does expectorates somewhat greenish phlegm off and on. She had started smoking again after her , a few months ago and claims that now she has quit again. She also has been drinking moderate amount of alcohol, and say is she quit drinking alcohol since last week. She appears kind of vague when talking. She has had no complete physical in the past 1 year. [facility] Medical History Allergic rhinitis Anxiety and depression Asthma Atelectasis of right lung Cataract COPD (chronic obstructive pulmonary disease) Dysphagia ETOH abuse Ex-smoker GERD (gastroesophageal reflux disease) HTN (hypertension) Migraine Musculoskeletal pain SUNSHINE on CPAP Respiratory failure with hypoxia Vitamin B12 deficiency Vitamin D insufficiency Surgical History H/O colonoscopy History of esophagogastroduodenoscopy (EGD) History of total hysterectomy S/P PRINCESS (total abdominal hysterectomy) Family History Father Alcoholic Mother Diabetes mellitus HTN (hypertension) Mental health disorder Brother Substance use disorder Mental health disorder Brother Substance use disorder Daughter Mental health disorder Brother Substance use disorder Social History Household Members: Spouse Housing: House Do you presently have visiting nurse or other home services: No Alcohol intake: former Patient Tobacco Use Status: Former Tobacco user Quit Date: 7 MONTHS AGO Tobacco use type: Cigarette e-Cigarette/Vaping Use: Never Used Second Hand Smoke Exposure: No Substance Use Type: Crack/Cocaine Advance Directives Date on File: 02/28/22 service: No Current occupational status: disabled 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 Cognitive needs: No Hearing needs: No Vision needs: Yes Review of Systems Const All systems reviewed & are unremarkable except as noted in HPI and below Eyes Reports no additional complaints ENT Reports nasal congestion (mild off and on ) Card Reports chest pain (Nonspecific pain in in front of her chest,), Denies irregular heart rhythm, Denies leg edema and Reports dyspnea on exertion Resp Reports cough (mild off and on .), Reports dyspnea on exertion and Denies wheezing GI Reports abdominal pain (non specific , being worked up ) Aller/Immun Denies wheezing Physical Exam Vital Signs: Last Vital Signs Pulse 104 H 10/04/22 11:05 BP 102/74 10/04/22 11:05 Pulse Ox 95 10/04/22 11:05 Oxygen Delivery Method Room Air 10/04/22 11:05 BMI result Body Mass Index 34.4 Const Other: Anxious and, slightly short of breath during conversation. General: no acute distress, alert and awake Orientation/consciousness: patient oriented x3 HEENT Head: Yes normal to inspection General nose exam: No nasal polyps present and No nasal discharge present Face and sinus: Yes sinuses nontender Mouth: oropharynx normal Throat: Yes posterior oropharynx normal Eyes General: appearance normal, both eyes and all related structures Neck Neck: Yes normal visual inspection, Yes no lymphadenopathy, Yes trachea midline and Yes no JVD Thyroid: Thyroid normal Chest Chest palpation & inspection: normal inspection of the chest, normal palpation of entire chest wall and no tenderness Resp Other: Percussion note is resonant, breath sounds are distant especially over the basilar areas. A few inspiratory crepitations are heard over the right base. But there seems to be good aeration the whole right base. Cardio Palpation: normal PMI Rate: regular rate Rhythm: regular rhythm Heart sounds: no gallops and no murmurs Peripheral pulses: Peripheral pulses 2+ throughout GI Palpation (GI): Soft to palpation, nontender, No hepatosplenomegaly present and no masses Auscultation: normal bowel sounds Back/Spine/Pelvis Thoracic/Lumbar Spine: thoracic and lumbar spine normal to inspection and thoraco-lumbar ROM limited Skin General skin exam: no rashes or lesions noted Neuro General: patient oriented x3 and no focal motor deficits Cranial nerves: Yes CN's II-XII intact bilaterally Extrem General: Yes normal to inspection, Yes no clubbing, cyanosis or edema and Yes no calf tenderness Psych Speech and movement: Normal speech and movement present Affect: Anxious affect present Results Reviewed Results Reviewed: CHEST XRAY TODAY , IS UNREMARKABLE , NO RESIDUAL CONSOLIDATION . Assessment & Plan Assessment & Plan (1) Atelectasis of right lung: Comment: CLINICALLY HAS IMPROVED. X-RAY CHEST TO BE REPEATED TODAY WHICH SHOWS NO RESIDUAL ATALECTASIS Advised to continue doing deep breathing exercises at least 3 times a day. She does have incentive spirometry device at home. Code(s): J98.11 - Atelectasis (2) Smoker: Comment: PATIENT HAD QUIT SMOKING BUT HAS RESUMED AGAIN OFF AND ON, COUNSELED TO STOP COMPLETELY. Code(s): F17.200 - Nicotine dependence, unspecified, uncomplicated (3) ETOH abuse: Comment: Longstanding history of alcohol abuse. She has been on a Acamprosate , 2 tablets t.i.d.. Resumed drinking after her a few months ago. She tells me that she has quit drinking since last week, remains to be seen. Code(s): F10.10 - Alcohol abuse, uncomplicated (4) Anxiety and depression: Comment: She is vague, tired, and somewhat depressed. I pressed on her that she should make appointment with primary care physician and have a good checkup at least once a year. Code(s): F41.9 - Anxiety disorder, unspecified; F32.A - Depression, unspecified (5) COPD (chronic obstructive pulmonary disease): Comment: PFT mild obstruction 09/2018, has had no breathing test since then. Clinically her COPD seems to be stable and well controlled. TX : WIXELA 250-50 1 INHALATION B.I.D. INCRUSE ELLIPTA 1 INHALATION DAILY. PROAIR 2 PUFFS Q 4-6 HOURS P.R.N.( advised not to use ProAir too frequently ) Code(s): J44.9 - Chronic obstructive pulmonary disease, unspecified Orders: Orders XR chest 2V Today F17.200 - Nicotine dependence, unspecified, uncomplicated, J9 6.91 - Respiratory failure, unspecified with hypoxia, J98.11 - Atelectasis Coding Level of Care Code Est Pt Level 4 (36085) Diagnoses Atelectasis of right lung J98.11 Smoker F17.200 ETOH abuse F10.10 Anxiety and depression F41.9; F32.A COPD (chronic obstructive pulmonary disease) J44.9
== END 2022-10-04 11:25 | disposition home or self-care (01) ==
PROVIDERS: PCP Internal Medicine; Visit Provider Internal Medicine
DX: J98.11 Atelectasis (principal); F17.200 Nicotine dependence, unspecified, uncomplicated; F10.10 Alcohol abuse, uncomplicated; F41.9 Anxiety disorder, unspecified; F32.A Depression, unspecified; J44.9 Chronic obstructive pulmonary disease, unspecified
CPT/HCPCS: 99214

== ENCOUNTER 2022-11-07 14:03 | Outpatient (AMB) | payer OTHER, SELFPAY ==
--- NOTE | 2022-11-07 14:10 | A.OFFVIS_ITS ---
Intake Vital Signs 11/07/22 14:25 Height 5 ft 5 in Weight 207 lb BMI 34.4 Intake Visit Reasons: ov- LT shoulder, last inj 05/24/20 Intake Note: Annie a 57 year old female who presents today for a follow up of left shoulder pain. Patient was last seen with [facility] on 05/24/20 and coritsone injection was given. She than followed up care with [facility] in [place], where last injection was given, states months ago but sometime this year. She states injection are no longer providing her relief and was referred back to orthopedics. She would like to discuss her options. MRI was done at [facility] and report was brought in by patient for todays visit. Allergies lamotrigine [From LAMICTAL] Allergy (Severe, Verified 11/07/22 14:14) RASH sumatriptan [From IMITREX] Allergy (Intermediate, Verified 11/07/22 14:14) RASH HPI ov- LT shoulder, last inj 05/24/20 HPI Details 57-year-old female who presents to the [facility] today for evaluation of left shoulder pain. She was seen by Dr. Deal on 05/24/22 where she was given an injection. She was also seen at [place] where she was given her last injection which provided her relief for about 3 months, and she was referred back to our office. She states she has pain in her left shoulder but denies pain while sleeping. REPLACED BY [facility] Medical History Allergic rhinitis Anxiety and depression Asthma Atelectasis of right lung Cataract COPD (chronic obstructive pulmonary disease) Dysphagia ETOH abuse Ex-smoker GERD (gastroesophageal reflux disease) HTN (hypertension) Migraine Musculoskeletal pain SUNSHINE on CPAP Respiratory failure with hypoxia Vitamin B12 deficiency Vitamin D insufficiency Surgical History History of esophagogastroduodenoscopy (EGD) H/O colonoscopy S/P PRINCESS (total abdominal hysterectomy) History of total hysterectomy Family History Father Alcoholic Mother Diabetes mellitus HTN (hypertension) Mental health disorder Brother Substance use disorder Mental health disorder Brother Substance use disorder Daughter Mental health disorder Brother Substance use disorder Social History Household Members: Spouse Housing: House Do you presently have visiting nurse or other home services: No Alcohol intake: former Patient Tobacco Use Status: Former Tobacco user Quit Date: 7 MONTHS AGO Tobacco use type: Cigarette e-Cigarette/Vaping Use: Never Used Second Hand Smoke Exposure: No Substance Use Type: Crack/Cocaine Advance Directives Date on File: 02/28/22 service: No Current occupational status: disabled 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 Tenderness over the bicipital groove and along the deltoid region of the shoulder. Forward flexion to 175, external rotation to 90, internal rotation to S1. 5/5 RTC strength. Positive O'briens. NVI. Office Procedures Joint Injection/Drain Joint Injection/Drain Primary Site: left shoulder Prep: site was prepped using aseptic technique, ethochloride spray was applied and injection warnings given Injected: 80 mg of, DepoMedrol, with 8 mL of, 1% plain lidocaine and in the subcromial space Approach Used: posterolateral Procedure: The patient tolerated the procedure well and there was some relief with the local anesthesia Coding 78988 - Glenohumeral/Tronchanteric Bursa/Intraarticular Procedure code (CPT) selection complete Results Reviewed Results Reviewed: 11/07/22 14:33 Lidocaine HCl 2 % MPF [Xylocaine 2 % MPF] 5 ml .ROUTE .STK-MED ONE methylPREDNISolone acetate [DEPO-MedroL] 80 mg .ROUTE .STK-MED ONE xrays of the left shoulder obtained on 04/18/22 show spurring along the acromion. Assessment & Plan Assessment & Plan (1) Rotator cuff impingement syndrome of left shoulder: Code(s): M75.42 - Impingement syndrome of left shoulder Plan We discussed options today which include steroid injection. They did consent to move forward with the left shoulder injection, which was tolerated well. I recommended rest, ice and elevation and OTC anti-inflammatories PRN for discomfort. If symptoms persist or worsens over the next 6-8 weeks, patient will contact the office, otherwise follow-up as needed. Patient Instructions: Scribed for Jethro Quiles PA-C, by Javon Sifuentes rn medical surgical, on 11/07/2022 at 2:15 PM HANG. Jethro Martínez PA-C, have personally reviewed and agree with the information entered by the scribe. Coding Level of Care Code Est Pt Level 3 (74772) Diagnoses Rotator cuff impingement syndrome of left shoulder M75.42 CPT Codes Coding - Joint 7: 28097 - Glenohumeral/Tronchanteric Bursa/Intraarticular ([id number])
[2022-11-07 14:25] VITALS: BMI 34.4
== END 2022-11-07 14:44 | disposition home or self-care (01) ==
PROVIDERS: PCP Internal Medicine; Visit Provider Physician Assistant
DX: M75.42 Impingement syndrome of left shoulder (principal)
CPT/HCPCS: 20610; 99213

== ENCOUNTER → 2022-11-07 14:03 | Outpatient (BNVA) | payer OTHER, SELFPAY | PROVIDERS: PCP Internal Medicine; Visit Provider Physician Assistant | DX: M75.42 Impingement syndrome of left shoulder (principal) | CPT/HCPCS: 20610; 99212; J1040 ==

== ENCOUNTER 2023-01-17 14:24 | Outpatient (AMB) | payer OTHER, SELFPAY ==
[2023-01-17 14:31] VITALS: BP 108/62; PULSE 86; O2SAT 95; BMI 34.8
--- NOTE | 2023-01-17 14:31 | A.OFFVIS_ITS ---
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: No Allergies lamotrigine [From LAMICTAL] Allergy (Severe, Verified 01/17/23 14:58) RASH sumatriptan [From IMITREX] Allergy (Intermediate, Verified 01/17/23 14:58) RASH Medication List - Last Reconciled 01/17/23 by Tremaine Murphy MD albuterol sulfate 90 mcg/actuation 2 puffs inhalation Q6H PRN amlodipine 5 mg PO DAILY baclofen 10 mg PO BEDTIME cbyvcxcqoq-xhmlrbpftevpe-tfpb 50-325-40 mg 1 tab PO Q4H PRN cholecalciferol (vitamin D3) 50 mcg PO DAILY clonazepam 1 mg PO TID fluticasone propion-salmeterol 250-50 mcg/dose (Wixela Inhub) 1 ea PO BID fluticasone propionate 50 mcg/actuation 1 spray intranasal DAILY gabapentin 400 mg PO TID [Kneeling Scooter As directed] loratadine 10 mg PO DAILY PRN montelukast 10 mg PO DAILY multivitamin 1 tab PO DAILY ondansetron 1 tab PO TID PRN pantoprazole 40 mg PO BID topiramate 100 mg PO BEDTIME umeclidinium 62.5 mcg/actuation (Incruse Ellipta) 1 inh inhalation DAILY 30 days Do you need a note to return to daycare/school/sports/work: No HPI COPD HPI Details 57 years old female, known to have chron ic obstructive pulmonary disease, moderate obesity, nocturnal hypoxemia as well as exertional hypoxemia. She has past history of heavy drinking which she has stopped, he has been sober for the last 4-6 weeks. She is getting TMS treatments . She does not smoke but does have diagnosis of the severe obstructive airway disorder. Using Wixela and Incruse Ellipta, regularly, does not need to use any rescue inhaler. She also has chronic nasal congestion which is controlled with montelukast and use of loratadine p.r.n.. Patient has been using O2 at night but has now stopped it. She say is that she is taking good care of herself and she is sleeping about 6 hours every night. She goes out to exercise in the gym regularly., she is questioning if she still needs oxygen at night. During the daytime she has only infrequent cough, no wheezing, and she is physically active without getting much short of breath. [facility] Medical History Respiratory failure with hypoxia Dysphagia Atelectasis of right lung Musculoskeletal pain Anxiety and depression Ex-smoker Allergic rhinitis Asthma Cataract Vitamin B12 deficiency Vitamin D insufficiency GERD (gastroesophageal reflux disease) ETOH abuse Migraine SUNSHINE on CPAP HTN (hypertension) COPD (chronic obstructive pulmonary disease) Surgical History History of esophagogastroduodenoscopy (EGD) H/O colonoscopy S/P PRINCESS (total abdominal hysterectomy) History of total hysterectomy Family History Father Alcoholic Mother Diabetes mellitus HTN (hypertension) Mental health disorder Brother Substance use disorder Mental health disorder Brother Substance use disorder Daughter Mental health disorder Brother Substance use disorder Social History Household Members: Spouse Housing: House Do you presently have visiting nurse or other home services: No Alcohol intake: former Comment: refused alarm Patient Tobacco Use Status: Former Tobacco user Quit Date: 7 MONTHS AGO Tobacco use type: Cigarette e-Cigarette/Vaping Use: Never Used Second Hand Smoke Exposure: No Substance Use Type: Crack/Cocaine Advance Directives Date on File: 02/28/22 service: No Current occupational status: disabled 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 Cognitive needs: No Hearing needs: No Vision needs: Yes Review of Systems Const All systems reviewed & are unremarkable except as noted in HPI and below Eyes Reports no additional complaints ENT Reports nasal congestion (mild off and on ) Card Reports chest pain (Nonspecific pain in in front of her chest,), Denies irregular heart rhythm, Denies leg edema and Reports dyspnea on exertion Resp Reports cough (mild off and on .), Reports dyspnea on exertion and Denies wheezing GI Reports abdominal pain (non specific , being worked up ) Aller/Immun Denies wheezing Physical Exam Const Other: Anxious and, slightly short of breath during conversation. General: no acute distress, alert and awake Orientation/consciousness: patient oriented x3 HEENT Head: Yes normal to inspection General nose exam: No nasal polyps present and No nasal discharge present Face and sinus: Yes sinuses nontender Mouth: oropharynx normal Throat: Yes posterior oropharynx normal Eyes General: appearance normal, both eyes and all related structures Neck Neck: Yes normal visual inspection, Yes no lymphadenopathy, Yes trachea midline and Yes no JVD Thyroid: Thyroid normal Chest Chest palpation & inspection: normal inspection of the chest, normal palpation of entire chest wall and no tenderness Resp Other: Percussion note is resonant, breath sounds are distant especially over the basilar areas. Wheezes or crepitations are heard today. Cardio Palpation: normal PMI Rate: regular rate Rhythm: regular rhythm Heart sounds: no gallops and no murmurs Peripheral pulses: Peripheral pulses 2+ throughout GI Palpation (GI): Soft to palpation, nontender, No hepatosplenomegaly present and no masses Auscultation: normal bowel sounds Back/Spine/Pelvis Thoracic/Lumbar Spine: thoracic and lumbar spine normal to inspection and thoraco-lumbar ROM limited Skin General skin exam: no rashes or lesions noted Neuro General: patient oriented x3 and no focal motor deficits Cranial nerves: Yes CN's II-XII intact bilaterally Extrem General: Yes normal to inspection, Yes no clubbing, cyanosis or edema and Yes no calf tenderness Psych Speech and movement: Normal speech and movement present Affect: Anxious affect present Assessment & Plan Assessment & Plan (1) ETOH abuse: Comment: Longstanding history of alcohol abuse. She had resumed drinking, after her , about 6 months ago . Now she is remaining sober for the last 3 months. Does not use any meds. Code(s): F10.10 - Alcohol abuse, uncomplicated Plan: Commended for not drinking, encouraged to stay sober. (2) Anxiety and depression: Comment: She is getting TMS treatment. Anxiety and depression are much improved . Code(s): F41.9 - Anxiety disorder, unspecified; F32.A - Depression, unspecified Plan: Continue to follow with psychiatric service . (3) COPD (chronic obstructive pulmonary disease): Comment: PFT mild obstruction 09/2018, has had no breathing test since then. Clinically her COPD seems to be stable and well controlled. Code(s): J44.9 - Chronic obstructive pulmonary disease, unspecified Plan: TX : WIXELA 250-50 1 INHALATION B.I.D. INCRUSE ELLIPTA 1 INHALATION DAILY. PROAIR 2 PUFFS Q 4-6 HOURS P.R.N.( advised not to use ProAir too frequently ) (4) Ex-smoker: Comment: She has not smoked for the last 6 month and is determined not to go back to smoking. Does not use nicotine patches at present Code(s): Z87.891 - Personal history of nicotine dependence Plan: Commended for quitting smoking completely. (5) Allergic rhinitis: Comment: SHE HAS THE ONGOING MODERATE DEGREE OF ALLERGIC RHINITIS. ACCORDING TO THE HISTORY IT HAS BECOME WORSE SINCE SHE WAS OFF MONTELUKAST. TX: MONTELUKAST 10 MG DAILY WAS STARTED ON HER LAST VISIT AND THE NASAL SYMPTOMS HAVE IMPROVED. SHE IS ADVISED TO CONTINUE TAKING 1 TABLET A DAY. Code(s): J30.9 - Allergic rhinitis, unspecified Plan: As above (6) Asthma: Comment: I THINK THIS PATIENT PREDOMINANTLY HAS BRONCHIAL ASTHMA along with COPD . TX : As under COPD Code(s): J45.909 - Unspecified asthma, uncomplicated Qualifiers: Asthma severity: mild Asthma persistence: intermittent Asthma complication type: with acute exacerbation Qualified Code(s): J45.21 - Mild intermittent asthma with (acute) exacerbation Plan: Has above (7) Respiratory failure with hypoxia: Comment: During her hospitalization in February 2022, she required use of oxygen. Later on it was weaned down to 2 L/minute. Since her last visit she has stop using the oxygen, at night and also does not use any portable unit. Today after walking for 5 minutes her O2 sat did drop down to 88%. Code(s): J96.91 - Respiratory failure, unspecified with hypoxia Plan: I advised her to use the portable unit 2 L/minute whenever she has to go outdoors or do any physical work. As far as nocturnal hypoxemia is concerned, we will get overnight oximetry recording, to check if she still needs O2 at night. Coding Level of Care Code Est Pt Level 4 (82566) Diagnoses ETOH abuse F10.10 Anxiety and depression F41.9; F32.A COPD (chronic obstructive pulmonary disease) J44.9 Ex-smoker Z87.891 Allergic rhinitis J30.9 Mild intermittent asthma with acute exacerbation J45.21 Asthma severity: mild Asthma persistence: intermittent Asthma complication type: with acute exacerbation Respiratory failure with hypoxia J96.91
== END 2023-01-17 14:56 | disposition home or self-care (01) ==
PROVIDERS: PCP Internal Medicine; Visit Provider Internal Medicine
DX: F10.10 Alcohol abuse, uncomplicated (principal); F41.9 Anxiety disorder, unspecified; F32.A Depression, unspecified; J44.9 Chronic obstructive pulmonary disease, unspecified; Z87.891 Personal history of nicotine dependence; J30.9 Allergic rhinitis, unspecified; J45.21 Mild intermittent asthma with (acute) exacerbation; J96.91 Respiratory failure, unspecified with hypoxia
CPT/HCPCS: 99214

== ENCOUNTER → 2023-01-17 14:24 | Outpatient (BNVA) | payer OTHER, SELFPAY | PROVIDERS: PCP Internal Medicine; Visit Provider Internal Medicine | DX: J44.9 Chronic obstructive pulmonary disease, unspecified (principal); J45.21 Mild intermittent asthma with (acute) exacerbation; J30.9 Allergic rhinitis, unspecified; J96.91 Respiratory failure, unspecified with hypoxia; F41.9 Anxiety disorder, unspecified; F32.A Depression, unspecified; F10.10 Alcohol abuse, uncomplicated; Z87.891 Personal history of nicotine dependence | CPT/HCPCS: 99212 ==

== ENCOUNTER 2023-02-13 12:42 | Outpatient (AMB) | payer OTHER, SELFPAY ==
[2023-02-13 13:02] VITALS: BP 124/80; PULSE 98; O2SAT 98; BMI 33.3
--- NOTE | 2023-02-13 13:02 | MHC.PC.OV ---
Vital Signs 02/13/23 13:02 Height 5 ft 5 in Weight 200 lb BMI 33.3 BP 124/80 Blood Pressure Location Rt brachial Position Sitting Pulse 98 Pulse Source Pulse Oximeter Pulse Oximetry (%) 98 Oxygen Delivery Method Room Air Intake Visit Reasons: Discuss Urology Referral Intake Note: Pt is here today for a follow up visit to discuss referral to see PSS for the lower back pain that goes down her L leg. Allergies lamotrigine [From LAMICTAL] Allergy (Severe, Verified 02/13/23 13:16) RASH sumatriptan [From IMITREX] Allergy (Intermediate, Verified 02/13/23 13:16) RASH Medication List - Last Reconciled 02/13/23 by Sandi Andrade MD albuterol sulfate 90 mcg/actuation 2 puffs inhalation Q6H PRN baclofen 10 mg PO BEDTIME jidyrcdufv-oaznfaoqryvkp-afxe 50-325-40 mg 1 tab PO Q4H PRN cholecalciferol (vitamin D3) 50 mcg PO DAILY clonazepam 1 mg PO BID fluticasone propion-salmeterol 250-50 mcg/dose (Wixela Inhub) 1 ea PO BID fluticasone propionate 50 mcg/actuation 1 spray intranasal DAILY gabapentin 400 mg PO BEDTIME [Kneeling Scooter As directed] loratadine 10 mg PO DAILY PRN montelukast 10 mg PO DAILY multivitamin 1 tab PO DAILY ondansetron 1 tab PO TID PRN pantoprazole 40 mg PO BID topiramate 100 mg PO BEDTIME umeclidinium 62.5 mcg/actuation (Incruse Ellipta) 1 inh inhalation DAILY 30 days Tobacco use date assessed: 02/13/23 Dental Screening Dental Screen Date: 02/13/23 Did you have a dental visit in the last 12 months?: Yes Did you have a dental problem in the last 6 months where you did not have access to dental care?: No Was dental information given to patient?: Patient has dentist HPI Discuss Urology Referral HPI Details Pt presents for f/u HTN, stopped Amlodipne 2 weeks ago, COPD is stable on Wixela and Incruse. Patient's in November. She has been sober for 3 months and tapering down clonazepam. [facility] Medical History Respiratory failure with hypoxia Dysphagia Atelectasis of right lung Musculoskeletal pain Anxiety and depression Ex-smoker Allergic rhinitis Asthma Cataract Vitamin B12 deficiency Vitamin D insufficiency GERD (gastroesophageal reflux disease) ETOH abuse Migraine SUNSHINE on CPAP HTN (hypertension) COPD (chronic obstructive pulmonary disease) Surgical History History of esophagogastroduodenoscopy (EGD) H/O colonoscopy S/P PRINCESS (total abdominal hysterectomy) History of total hysterectomy Family History Father Alcoholic Mother Diabetes mellitus HTN (hypertension) Mental health disorder Brother Substance use disorder Mental health disorder Brother Substance use disorder Daughter Mental health disorder Brother Substance use disorder Social History Household Members: Spouse Housing: House Do you presently have visiting nurse or other home services: No Alcohol intake: former Comment: refused alarm Patient Tobacco Use Status: Former Tobacco user Quit Date: 7 MONTHS AGO Tobacco use type: Cigarette e-Cigarette/Vaping Use: Never Used Second Hand Smoke Exposure: No Substance Use Type: Crack/Cocaine Advance Directives Date on File: 02/28/22 service: No Current occupational status: disabled 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 How often do you have a drink containing alcohol?: Never 2. How many drinks containing alcohol do you have on a typical day when you are drinking?: 5 or 6 3. How often do you have six or more drinks on one occasion?: Never Total Score: 2 RICARDO-7 AMB Questionnaire RICARDO-7 Date RICARDO - 7 assessed: 03/30/23 Feeling nervous, anxious, or on edge: 1 = Several days Not being able to stop or control worryin = Several days Worrying too much about different things: 1 = Several days Trouble relaxin = Several days Being so restless that it is hard to sit still: 0 = Not at all Becoming easily annoyed or irritable: 1 = Several days Feeling afraid as if something awful might happen: 0 = Not at all Total RICARDO-7 score (0-4 normal; 5-9 mild; 10-14 moderate; 15-21 severe): 5 Source: Developed by Drs. Angelo Oseguera, Marzena Parker, Tony Vick and colleagues, with an educational gee from [employer]. Review of Systems Const All systems reviewed & are unremarkable except as noted in HPI and below Reports no additional complaints Eyes Reports no additional complaints ENT Reports no additional complaints Card Reports no additional complaints Resp Reports no additional complaints GI Reports no additional complaints Reports no additional complaints Physical exam (Primary Care) Vital Signs: Last Vital Signs Pulse 98 02/13/23 13:02 BP 124/80 02/13/23 13:02 Pulse Ox 98 02/13/23 13:02 Oxygen Delivery Method Room Air 02/13/23 13:02 BMI result Body Mass Index 33.3 Tobacco/Smoking Status: Tobacco use Status Tobacco use date assessed 02/13/23 02/13/23 13:25 Patient Tobacco Use Status Former Tobacco user 02/13/23 13:25 Tobacco use type Cigarette 02/13/23 13:03 e-Cigarette/Vaping Use Never Used 02/13/23 13:03 Thrive Assessment: Date of Thrive Assessment Date Thrive assessed 05/10/22 02/13/23 13:03 Const General: no acute distress HENMT Head: Yes normal to inspection Ears: hearing grossly normal bilaterally Face and sinus: Yes normal facial exam Throat: Yes posterior oropharynx normal Neck Neck: Yes supple Resp Effort & Inspection: normal respiratory effort Auscultation: clear to auscultation bilaterally Cardio Rhythm: regular rhythm Heart sounds: S1 normal heart sound present and S2 normal heart sound present GI Inspection: Yes normal to inspection Palpation (GI): Soft to palpation Percussion: Yes normal to percussion Auscultation: normal bowel sounds Assessment and Plan Assessment & Plan (1) Spondylosis of lumbar region without myelopathy or radiculopathy: Comment: Patient follows up with pain management at [facility] Code(s): M47.816 - Spondylosis without myelopathy or radiculopathy, lumbar region Plan: Referred to [facility] (2) COPD (chronic obstructive pulmonary disease): Comment: PFT mild obstruction 09/2018, has had no breathing test since then. Clinically her COPD seems to be stable and well controlled. Code(s): J44.9 - Chronic obstructive pulmonary disease, unspecified Plan: Continue Wixela and Incruse (3) HTN (hypertension): Code(s): I10 - Essential (primary) hypertension Plan: Off amlodipine, patient will monitor her blood pressure at home (4) Vitamin D insufficiency: Code(s): E55.9 - Vitamin D deficiency, unspecified Plan: Continue vitamin-D. (5) Vitamin B12 deficiency: Code(s): E53.8 - Deficiency of other specified B group vitamins Plan: Continue vitamin B 12 supplement (6) Hyperglycemia: Code(s): R73.9 - Hyperglycemia, unspecified Plan: ADA diet increase exercise weight loss discussed with the patient , check A1c Orders: Orders Comprehensive [place]. Panel Fast Today E53.8 - Deficiency of other specified B group vitamins, E55.9 - Vitamin D deficiency, unspecified, I10 - Essential (primary) hypertension, J44.9 - Chronic obstructive pulmonary disease, unspecified, R73.9 - Hyperglycemia, unspecified Hemoglobin A1c Today E53.8 - Deficiency of other specified B group vitamins, E55.9 - Vitamin D deficiency, unspecified, I10 - Essential (primary) hypertension, J44.9 - Chronic obstructive pulmonary disease, unspecified, R73.9 - Hyperglycemia, unspecified Lipid Panel Today E53.8 - Deficiency of other specified B group vitamins, E55.9 - Vitamin D deficiency, unspecified, I10 - Essential (primary) hypertension, J44.9 - Chronic obstructive pulmonary disease, unspecified, R73.9 - Hyperglycemia, unspecified Microalbumin, Random (w Creat) Today E53.8 - Deficiency of other specified B group vitamins, E55.9 - Vitamin D deficiency, unspecified, I10 - Essential (primary) hypertension, J44.9 - Chronic obstructive pulmonary disease, unspecified, R73.9 - Hyperglycemia, unspecified Complete Blood Count Auto Diff Today E53.8 - Deficiency of other specified B group vitamins, E55.9 - Vitamin D deficiency, unspecified, I10 - Essential (primary) hypertension, J44.9 - Chronic obstructive pulmonary disease, unspecified, R73.9 - Hyperglycemia, unspecified Referrals Pain Management Referral M47.816 - Spondylosis without myelopathy or radiculopathy, lumbar region Coding Level of Care Code Est Pt Level 4 (22723) Diagnoses Spondylosis of lumbar region without myelopathy or radiculopathy M47.816 COPD (chronic obstructive pulmonary disease) J44.9 HTN (hypertension) I10 Vitamin D insufficiency E55.9 Vitamin B12 deficiency E53.8 Hyperglycemia R73.9
== END 2023-02-13 14:15 | disposition home or self-care (01) ==
PROVIDERS: PCP Internal Medicine; Visit Provider Internal Medicine
DX: M47.816 Spondylosis without myelopathy or radiculopathy, lumbar region (principal); J44.9 Chronic obstructive pulmonary disease, unspecified; I10 Essential (primary) hypertension; E55.9 Vitamin D deficiency, unspecified; E53.8 Deficiency of other specified B group vitamins; R73.9 Hyperglycemia, unspecified
CPT/HCPCS: 99214

== ENCOUNTER 2023-02-13 13:52 | Outpatient (REF) | payer OTHER, SELFPAY ==
[2023-02-13 16:55] LABS: Alanine Aminotransferase 15 U/L (0-31); Albumin Level 4.3 g/dL (3.5-5.0); Alkaline Phosphatase 113 U/L (39-117); Anion Gap 11 (12-20); Aspartate Amino Transferase 16 U/L (5-31); Bilirubin Total 0.4 mg/dL (0.0-1.0); Blood Urea Nitrogen 19 mg/dL (9-16); Carbon Dioxide 27 mmol/L (22-29); Chloride 102 mmol/L (96-108); Cholesterol 167 mg/dL (<200); Estimated Glomerular Filt Rate > 60; Glucose Fasting 104 mg/dL (60-99); HDL Cholesterol 58 mg/dL (>40); LDL Cholesterol Calculated 96 mg/dL (<100); Potassium 4.2 mmol/L (3.3-5.1); Sodium 136 mmol/L (135-145); Total Protein 7.9 g/dL (6.5-8.0); Triglycerides 69 mg/dL (<150)
== END 2023-02-13 13:53 | disposition home or self-care (01) ==
LOC: HO.HMGCLDS 13:52
PROVIDERS: PCP Internal Medicine; Visit Provider Internal Medicine
DX: J44.9 Chronic obstructive pulmonary disease, unspecified (principal); I10 Essential (primary) hypertension; E55.9 Vitamin D deficiency, unspecified; E53.8 Deficiency of other specified B group vitamins; R73.9 Hyperglycemia, unspecified
CPT/HCPCS: 36415; 80053; 80061; 82043; 82570; 83036; 85025

== ENCOUNTER 2023-02-22 08:14 | Outpatient (AMB) | payer OTHER, SELFPAY ==
[2023-02-22 08:45] VITALS: BP 126/76; PULSE 76; TEMP 36.6; O2SAT 94
--- NOTE | 2023-02-22 08:45 | AM.OFFWIN_ITS ---
Intake Vital Signs 02/22/23 08:45 Height 5 ft 5 in BP 126/76 Blood Pressure Location Rt brachial Position Sitting Pulse 76 Pulse Source Pulse Oximeter Temp 97.9 F Temp Source Temporal Artery Scan Pulse Oximetry (%) 94 Intake Visit Reasons: EP Back pain/shoulder/butt due to fall Intake Note: pt is here for c.o back, shoulder, butt pain due to fall on saturday Patient Tobacco Use Status: Former Tobacco user Quit Date: 7 MONTHS AGO Allergies lamotrigine [From LAMICTAL] Allergy (Severe, Verified 02/22/23 08:46) RASH sumatriptan [From IMITREX] Allergy (Intermediate, Verified 02/22/23 08:46) RASH Do you need a note to return to daycare/school/sports/work: Yes HPI HPI Comments History of Present Illness Details This is a 57-year-old female who presents to the office today following a slip and fall. Patient states she slipped on ice 5 days ago and landed directly on her tailbone. She then slipped on ice again and landed on her left side. She reports low back, tailbone, left shoulder, and left upper arm pain since the fall. She has been alternating ibuprofen and acetaminophen for pain management and she has been using heat and ice without much relief. She denies any head trauma or loss of consciousness. [facility] Medical History Respiratory failure with hypoxia Dysphagia Atelectasis of right lung Musculoskeletal pain Anxiety and depression Ex-smoker Allergic rhinitis Asthma Cataract Vitamin B12 deficiency Vitamin D insufficiency GERD (gastroesophageal reflux disease) ETOH abuse Migraine SUNSHINE on CPAP HTN (hypertension) COPD (chronic obstructive pulmonary disease) Surgical History History of esophagogastroduodenoscopy (EGD) H/O colonoscopy S/P PRINCESS (total abdominal hysterectomy) History of total hysterectomy Family History Father Alcoholic Mother Diabetes mellitus HTN (hypertension) Mental health disorder Brother Substance use disorder Mental health disorder Brother Substance use disorder Daughter Mental health disorder Brother Substance use disorder Social History Household Members: Spouse Housing: House Do you presently have visiting nurse or other home services: No Alcohol intake: former Comment: refused alarm Patient Tobacco Use Status: Former Tobacco user Quit Date: 7 MONTHS AGO Tobacco use type: Cigarette e-Cigarette/Vaping Use: Never Used Second Hand Smoke Exposure: No Substance Use Type: Crack/Cocaine Advance Directives Date on File: 02/28/22 service: No Current occupational status: disabled 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 Cognitive needs: No Hearing needs: No Vision needs: Yes Review of Systems Const All systems reviewed & are unremarkable except as noted in HPI and below Reports no additional complaints Eyes Reports no additional complaints ENT Reports no additional complaints Card Reports no additional complaints Resp Reports no additional complaints GI Reports no additional complaints Reports no additional complaints Musc Reports no additional complaints Skin/Breast Reports system reviewed and no additional complaints, except as documented Neuro Reports no additional complaints Psych Reports no additional complaints Endo Reports no additional complaints Emanuel/Lymph Reports no additional complaints Aller/Immun Reports no additional complaints Physical Exam Vital Signs: Last Vital Signs Temp 97.9 F 02/22/23 08:45 Pulse 76 02/22/23 08:45 BP 126/76 02/22/23 08:45 Pulse Ox 94 02/22/23 08:45 Const Other: Vital signs reviewed. Constitutional: Non-toxic appearing. No acute distress. Well-developed and well-nourished. HEENT: Normocephalic and atraumatic. Skin: Warm and dry. No rashes or lesions noted. Neck: Full and painless range of motion. No cervical lymphadenopathy. Patient has mild tenderness to palpation of the left cervical paraspinal musculature and some palpable muscle spasms of the left trapezius. Cardio: Regular rate and rhythm. No murmurs, gallops, or rubs. No lower extremity edema. No JVD. Pulmonary: No respiratory distress. No accessory muscle usage. Clear to auscultation bilaterally without wheezing, crackles, or rhonchi. Gastrointestinal: Soft, nontender, and nondistended in all 4 quadrants. Normoactive bowel sounds in all 4 quadrants. Genitourinary: No CVA tenderness. Musculoskeletal: Mild tenderness to palpation of the left lumbar paraspinal musculature. No midline or spinous process tenderness to palpation. Tenderness to palpation of the left shoulder and left humerus diffusely, no focal bony tenderness to palpation. Neuro: Alert and oriented x4. Cranial nerves 2-12 grossly intact. No focal deficits appreciated. Psych: Normal mood and affect. Assessment & Plan Assessment & Plan (1) Fall: Code(s): W19.XXXA - Unspecified fall, initial encounter Qualifiers: Encounter type: initial encounter Qualified Code(s): W19.XXXA - Unspecified fall, initial encounter Plan: This is a 57-year-old female presenting to the office complaining of left shoulder, left upper arm, low back, and tailbone pain following a slip on ice and fall that occurred 5 days ago. Check x-ray of the lumbar spine, x-ray of the sacrum/coccyx, x-ray of the left shoulder, and x-ray of the left humerus. Recommend rest/activity modification and ice/heat to the affected area, and continue with acetaminophen/ibuprofen for pain management as long as patient has no medical contraindications. Patient sent a prescription for PO cyclobenzaprine 10 mg 3 times daily as needed for spasms. Patient was advised to follow-up here or proceed to the emergency room for any worsening symptoms. Patient verbalizes her understanding and she is in agreement with the plan. Orders: Orders XR lumbar spine 2-3V Today M79.602 - Pain in left arm XR sacrum coccyx min 2V Today M53.3 - Sacrococcygeal disorders, not elsewhere classified XR shoulder LT min 2V Today M25.512 - Pain in left shoulder XR humerus LT Today M79.622 - Pain in left upper arm Medications: New cyclobenzaprine 10 mg PO TID PRN 20 tabs 0RF muscle spasm Coding Level of Care Code Est Pt Level 3 (99699) Diagnoses Fall, initial encounter W19.XXXA Encounter type: initial encounter
== END 2023-02-22 09:31 | disposition home or self-care (01) ==
PROVIDERS: PCP Internal Medicine; Visit Provider Physician Assistant Medical
DX: M79.602 Pain in left arm (principal); M53.3 Sacrococcygeal disorders, not elsewhere classified; M25.512 Pain in left shoulder; M79.622 Pain in left upper arm; W19.XXXA Unspecified fall, initial encounter
CPT/HCPCS: 99213

== ENCOUNTER 2023-02-22 09:05 | Outpatient (REF) | payer OTHER, SELFPAY ==
--- NOTE | ~2023-02-22 | XR_ITS ---
EXAMINATION: Sacrum/coccyx, lumbar spine, left humerus and left shoulder. CLINICAL INDICATION: Sacrococcygeal disorder. Pain. COMPARISON: None. TECHNIQUE: Lumbar spine 3 views. Sacrum coccyx 3 views. Left humerus 2 views. Left shoulder 3 views. FINDINGS: Left shoulder: There is maintained glenohumeral and AC joint space. No visible acute fracture, dislocation or soft tissue abnormality seen. Left humerus: There is no visible fracture or bony abnormality the bony cortex is intact. The soft tissues are normal. Lumbar spine: There is normal lumbar lordosis. Grade 1 anterolisthesis L5 over S1 is noted. Rest of the vertebral alignment is normal. No visible fracture, lytic or sclerotic process seen. Sacrum coccyx: The SI joints are symmetric and normal. The sacrum and coccyx bony cortex is normal. No visible fracture. No lytic or sclerotic process. The pre and the post sacral soft tissues are normal. XR/XR lumbar spine 2-3V IMPRESSION: Unremarkable left shoulder, left humerus. Grade 1 anterolisthesis L5 over S1. No acute fracture or lytic process seen. Unremarkable sacrum and coccyx.
--- NOTE | ~2023-02-22 | XR_ITS ---
EXAMINATION: Sacrum/coccyx, lumbar spine, left humerus and left shoulder. CLINICAL INDICATION: Sacrococcygeal disorder. Pain. COMPARISON: None. TECHNIQUE: Lumbar spine 3 views. Sacrum coccyx 3 views. Left humerus 2 views. Left shoulder 3 views. FINDINGS: Left shoulder: There is maintained glenohumeral and AC joint space. No visible acute fracture, dislocation or soft tissue abnormality seen. Left humerus: There is no visible fracture or bony abnormality the bony cortex is intact. The soft tissues are normal. Lumbar spine: There is normal lumbar lordosis. Grade 1 anterolisthesis L5 over S1 is noted. Rest of the vertebral alignment is normal. No visible fracture, lytic or sclerotic process seen. Sacrum coccyx: The SI joints are symmetric and normal. The sacrum and coccyx bony cortex is normal. No visible fracture. No lytic or sclerotic process. The pre and the post sacral soft tissues are normal. XR/XR shoulder LT min 2V IMPRESSION: Unremarkable left shoulder, left humerus. Grade 1 anterolisthesis L5 over S1. No acute fracture or lytic process seen. Unremarkable sacrum and coccyx.
--- NOTE | ~2023-02-22 | XR_ITS ---
EXAMINATION: Sacrum/coccyx, lumbar spine, left humerus and left shoulder. CLINICAL INDICATION: Sacrococcygeal disorder. Pain. COMPARISON: None. TECHNIQUE: Lumbar spine 3 views. Sacrum coccyx 3 views. Left humerus 2 views. Left shoulder 3 views. FINDINGS: Left shoulder: There is maintained glenohumeral and AC joint space. No visible acute fracture, dislocation or soft tissue abnormality seen. Left humerus: There is no visible fracture or bony abnormality the bony cortex is intact. The soft tissues are normal. Lumbar spine: There is normal lumbar lordosis. Grade 1 anterolisthesis L5 over S1 is noted. Rest of the vertebral alignment is normal. No visible fracture, lytic or sclerotic process seen. Sacrum coccyx: The SI joints are symmetric and normal. The sacrum and coccyx bony cortex is normal. No visible fracture. No lytic or sclerotic process. The pre and the post sacral soft tissues are normal. XR/XR sacrum coccyx min 2V IMPRESSION: Unremarkable left shoulder, left humerus. Grade 1 anterolisthesis L5 over S1. No acute fracture or lytic process seen. Unremarkable sacrum and coccyx.
--- NOTE | ~2023-02-22 | XR_ITS ---
EXAMINATION: Sacrum/coccyx, lumbar spine, left humerus and left shoulder. CLINICAL INDICATION: Sacrococcygeal disorder. Pain. COMPARISON: None. TECHNIQUE: Lumbar spine 3 views. Sacrum coccyx 3 views. Left humerus 2 views. Left shoulder 3 views. FINDINGS: Left shoulder: There is maintained glenohumeral and AC joint space. No visible acute fracture, dislocation or soft tissue abnormality seen. Left humerus: There is no visible fracture or bony abnormality the bony cortex is intact. The soft tissues are normal. Lumbar spine: There is normal lumbar lordosis. Grade 1 anterolisthesis L5 over S1 is noted. Rest of the vertebral alignment is normal. No visible fracture, lytic or sclerotic process seen. Sacrum coccyx: The SI joints are symmetric and normal. The sacrum and coccyx bony cortex is normal. No visible fracture. No lytic or sclerotic process. The pre and the post sacral soft tissues are normal. XR/XR humerus LT IMPRESSION: Unremarkable left shoulder, left humerus. Grade 1 anterolisthesis L5 over S1. No acute fracture or lytic process seen. Unremarkable sacrum and coccyx.
== END 2023-02-22 09:06 | disposition home or self-care (01) ==
LOC: HO.HMGCX 09:05
PROVIDERS: PCP Internal Medicine; Visit Provider Physician Assistant Medical
DX: M25.512 Pain in left shoulder (principal); M79.622 Pain in left upper arm; M79.602 Pain in left arm; M53.3 Sacrococcygeal disorders, not elsewhere classified
CPT/HCPCS: 72100; 72220; 73030; 73060

== ENCOUNTER 2023-03-01 11:24 | Outpatient (AMB) | payer OTHER, SELFPAY ==
--- NOTE | 2023-03-01 11:26 | MHC.OFFVIS ---
Intake Vital Signs 03/01/23 11:34 Height 5 ft 5 in Weight 200 lb BMI 33.3 Intake Visit Reasons: ov- impingement syndrome of left Intake Note: Annie moses 57 year old female presents today for a follow up of left shoulder, last injection 11/07/22. Patient reports last injection provided little relief for about a month. States having a popping sensation. She reports a recent fall on her left side due to her slipping in the snow. Allergies lamotrigine [From LAMICTAL] Allergy (Severe, Verified 03/01/23 11:52) RASH sumatriptan [From IMITREX] Allergy (Intermediate, Verified 03/01/23 11:52) RASH HPI ov- impingement syndrome of left HPI Details 57-year-old female who returns to the office today for a follow-up of left shoulder pain. She reports she sustained a recent fall on her left side due to slipping on snow and reinjured her shoulder, 02/22/23. She currently states she has constant soreness in her shoulder which makes her difficult to workout. She also c/o experiencing a popping sensation in her shoulder. She had undergone physical therapy in the past. She had her last injection on 11/07/22 which provided her mild relief for a couple of weeks. She does not have a history of diabetes. [facility] Medical History Respiratory failure with hypoxia Dysphagia Atelectasis of right lung Musculoskeletal pain Anxiety and depression Ex-smoker Allergic rhinitis Asthma Cataract Vitamin B12 deficiency Vitamin D insufficiency GERD (gastroesophageal reflux disease) ETOH abuse Migraine SUNSHINE on CPAP HTN (hypertension) COPD (chronic obstructive pulmonary disease) Surgical History History of esophagogastroduodenoscopy (EGD) H/O colonoscopy S/P PRINCESS (total abdominal hysterectomy) History of total hysterectomy Family History Father Alcoholic Mother Diabetes mellitus HTN (hypertension) Mental health disorder Brother Substance use disorder Mental health disorder Brother Substance use disorder Daughter Mental health disorder Brother Substance use disorder Social History Household Members: Spouse Housing: House Do you presently have visiting nurse or other home services: No Alcohol intake: former Comment: refused alarm Patient Tobacco Use Status: Former Tobacco user Quit Date: 7 MONTHS AGO Tobacco use type: Cigarette e-Cigarette/Vaping Use: Never Used Second Hand Smoke Exposure: No Substance Use Type: Crack/Cocaine Advance Directives Date on File: 02/28/22 service: No Current occupational status: disabled 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 Tenderness over the bicipital groove and along the deltoid region of the shoulder. Forward flexion to 175, external rotation to 90, internal rotation to S1. 5/5 RTC strength. Positive Pak. NVI. Office Procedures Joint Injection/Drain Joint Injection/Drain Primary Site: left shoulder Prep: site was prepped using aseptic technique, ethochloride spray was applied and injection warnings given Injected: 80 mg of, DepoMedrol, with 8 mL of, 1% plain lidocaine and in the subcromial space Approach Used: posterolateral Procedure: The patient tolerated the procedure well and there was some relief with the local anesthesia Coding 67644 - Glenohumeral/Tronchanteric Bursa/Intraarticular Procedure code (CPT) selection complete Assessment & Plan Assessment & Plan (1) Rotator cuff impingement syndrome of left shoulder: Code(s): M75.42 - Impingement syndrome of left shoulder Plan We discussed options today which include steroid injection. They did consent to move forward with the left shoulder injection, which was tolerated well. I recommended rest, ice and elevation and OTC anti-inflammatories PRN for discomfort. An MRI of the left shoulder has also been ordered to further evaluate the integrity of RTC and surrounding structures. If symptoms persist or worsens over the next 6-8 weeks, patient will contact the office, otherwise follow-up as needed. Patient Instructions: Scribed for Jethro Quiles PA-C, by Javon Sifuentes biomedical equipment specialist, on 03/01/2023 at 11:30 AM EST. IJethro PA-C, have personally reviewed and agree with the information entered by the scribe. Coding Level of Care Code Est Pt Level 3 (54045) Diagnoses Rotator cuff impingement syndrome of left shoulder M75.42 CPT Codes Coding - Joint 7: 09284 - Glenohumeral/Tronchanteric Bursa/Intraarticular ([id number])
[2023-03-01 11:34] VITALS: BMI 33.3
== END 2023-03-01 12:40 | disposition home or self-care (01) ==
PROVIDERS: PCP Internal Medicine; Visit Provider Physician Assistant
DX: M75.42 Impingement syndrome of left shoulder (principal)
CPT/HCPCS: 20610; 99213

== ENCOUNTER → 2023-03-01 11:24 | Outpatient (BNVA) | payer OTHER, SELFPAY | PROVIDERS: PCP Internal Medicine; Visit Provider Physician Assistant | DX: M75.42 Impingement syndrome of left shoulder (principal) | CPT/HCPCS: 20610; 99212; J1040 ==

== ENCOUNTER 2023-03-21 14:29 | Outpatient (AMB) | payer OTHER, SELFPAY ==
[2023-03-21 14:31] VITALS: BP 112/62; PULSE 97; BMI 32.3
--- NOTE | 2023-03-21 14:31 | MHC.OFFVIS ---
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/ hx svt/ hx ablation Intake Note: NPV Sheet Rocker Required: No Accompanied by: Self / Same As Patient Allergies lamotrigine [From LAMICTAL] Allergy (Severe, Verified 03/21/23 14:33) RASH sumatriptan [From IMITREX] Allergy (Intermediate, Verified 03/21/23 14:33) RASH Medication List - Last Reconciled 03/21/23 by Darrel Cortez MD albuterol sulfate 90 mcg/actuation 2 puffs inhalation Q6H PRN baclofen 10 mg PO BEDTIME qfzogwzdfw-ldoyacvniurjf-mort 50-325-40 mg 1 tab PO Q4H PRN cholecalciferol (vitamin D3) 50 mcg PO DAILY clonazepam 1 mg PO BID fluticasone propion-salmeterol 250-50 mcg/dose (Wixela Inhub) 1 ea PO BID fluticasone propionate 50 mcg/actuation 1 spray intranasal DAILY gabapentin 400 mg PO BEDTIME [Kneeling Scooter As directed] loratadine 10 mg PO DAILY PRN montelukast 10 mg PO DAILY pantoprazole 40 mg PO BID topiramate 100 mg PO BEDTIME umeclidinium 62.5 mcg/actuation (Incruse Ellipta) 1 inh inhalation DAILY 30 days HPI HPI Comments History of Present Illness Details Annie is here for consultation regarding chest pains. She states that she never had any history of coronary disease or myocardial infarction or cardiomyopathy. Apparently 20 years ago she had some ablation but not entirely clear what it is. She does not remember. Otherwise, she describes pains in the chest randomly. Can happen any time. With or without exertion. History of smoking, alcohol as well as substance abuse including cocaine. Last use around 3-4 months ago. Nothing after that. She also describes shortness of breath with activity but states that she has COPD. She is oxygen at nighttime and sometimes during activity. [facility] Medical History Respiratory failure with hypoxia Dysphagia Atelectasis of right lung Musculoskeletal pain Anxiety and depression Ex-smoker Allergic rhinitis Asthma Cataract Vitamin B12 deficiency Vitamin D insufficiency GERD (gastroesophageal reflux disease) ETOH abuse Migraine SUNSHINE on CPAP HTN (hypertension) COPD (chronic obstructive pulmonary disease) Surgical History History of esophagogastroduodenoscopy (EGD) H/O colonoscopy S/P PRINCESS (total abdominal hysterectomy) History of total hysterectomy Family History Father Alcoholic Mother Diabetes mellitus HTN (hypertension) Mental health disorder Brother Substance use disorder Mental health disorder Brother Substance use disorder Daughter Mental health disorder Brother Substance use disorder Social History Household Members: Spouse Housing: House Do you presently have visiting nurse or other home services: No Alcohol intake: former Comment: refused alarm Patient Tobacco Use Status: Former Tobacco user Quit Date: 7 MONTHS AGO Tobacco use type: Cigarette e-Cigarette/Vaping Use: Never Used Second Hand Smoke Exposure: No Substance Use Type: Crack/Cocaine Advance Directives Date on File: 02/28/22 service: No Current occupational status: disabled 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 Cognitive needs: No Hearing needs: No Vision needs: Yes Review of Systems Const Denies weakness Eyes Denies loss of vision ENT Denies dizziness Card Reports chest pain, Denies chest pain with activity, Denies syncope, Denies rapid heart rate, Denies pedal edema, Denies edema, Reports leg ulcers, Denies leg edema, Denies lightheadedness, Denies palpitations, Denies dyspnea on exertion and Denies orthopnea Resp Denies cough, Denies dyspnea on exertion and Denies wheezing GI Denies hematochezia and Denies change in stool character Denies hematuria, Denies urinary frequency and Denies dysuria Musc Denies abnormal gait, Denies muscle cramps, Denies muscle weakness, Denies numbness, Denies radiating pain into limb and Denies tingling Skin/Breast Denies nail changes and Denies rash Neuro Denies Abnormal speech present, Denies abnormal gait, Denies dizziness, Denies syncope, Denies loss of vision, Denies memory loss, Denies numbness, Denies tingling and Denies weakness Psych Denies depression and Denies memory loss Endo Denies palpitations Aller/Immun Denies wheezing Physical Exam Vital Signs: Last Vital Signs Pulse 97 03/21/23 14:31 BP 112/62 03/21/23 14:31 BMI result Body Mass Index 32.3 Const General: comfortable and no acute distress Orientation/consciousness: patient oriented x3 HEENT Other: Unremarkable Head: Yes normal to inspection Neck Neck: Yes normal visual inspection Chest Chest palpation & inspection: normal inspection of the chest Resp Auscultation: clear to auscultation bilaterally Cardio Palpation: normal PMI Heart sounds: S1 normal heart sound present, S2 normal heart sound present, no gallops, no murmurs and no rubs GI Palpation (GI): Soft to palpation Back/Spine/Pelvis Other: unremarkable Skin General skin exam: no rashes or lesions noted Neuro General: patient oriented x3 Speech: No Abnormal speech present Extrem General: Yes normal to inspection Psych Mental Status: mental status grossly normal Office Procedures EKG Details: Last EKG with sinus rhythm at 78/Min; no significant ST-T changes and otherwise unremarkable[place]. [address]-[id number], Complete (Not done today) Assessment & Plan Assessment & Plan (1) Precordial chest pain: Code(s): R07.2 - Precordial pain (2) Shortness of breath: Code(s): R06.02 - Shortness of breath Plan Atypical chest pain/shortness of breath with with history of smoking, alcohol excess as well as cocaine use in the past. We will assess for coronary disease as well as cardiomyopathy. Echocardiogram as well as coronary CTA are being recommended. Follow-up after the above. Orders: Orders CA echo transthoracic complete Today R07.2 - Precordial pain Basic Metabolic Panel Today R07.2 - Precordial pain CT Cardiac Coronary Angio Today I25.10 - Atherosclerotic heart disease of [place] coronary artery without angina pectoris, R07.2 - Precordial pain Coding Level of Care Code New Pt Level 4 (69030) Diagnoses Precordial chest pain R07.2 Shortness of breath R06.02 CPT Codes EKG - CPT: 11946-[id number], Complete ([id number])
== END 2023-03-21 14:53 | disposition home or self-care (01) ==
PROVIDERS: PCP Internal Medicine; Visit Provider Internal Medicine
DX: R07.2 Precordial pain (principal); R06.02 Shortness of breath
CPT/HCPCS: 99204

== ENCOUNTER → 2023-03-21 14:29 | Outpatient (BNVA) | payer OTHER, SELFPAY | PROVIDERS: PCP Internal Medicine; Visit Provider Internal Medicine | DX: R07.2 Precordial pain (principal); R06.02 Shortness of breath | CPT/HCPCS: 99202 ==

== ENCOUNTER 2023-04-15 14:22 | Outpatient (AMB) | payer OTHER, SELFPAY ==
--- NOTE | 2023-04-15 14:30 | MHC.OFFVIS ---
Intake Vital Signs 04/15/23 14:33 Height 5 ft 5 in Weight 192 lb 2 oz BMI 32.0 BP 114/68 Blood Pressure Location Lt brachial Position Sitting Respiration 18 Pulse 89 Pulse Source Pulse Oximeter Pulse Oximetry (%) 97 Oxygen Delivery Method Room Air Intake Visit Reasons: COPD Allergies lamotrigine [From LAMICTAL] Allergy (Severe, Verified 04/15/23 14:59) RASH sumatriptan [From IMITREX] Allergy (Intermediate, Verified 04/15/23 14:59) RASH Medication List - Last Reconciled 04/15/23 by Tremaine Murphy MD albuterol sulfate 90 mcg/actuation 2 puffs inhalation Q6H PRN baclofen 10 mg PO BEDTIME cwbvhlajsx-ulamgywvrsiim-gfsr 50-325-40 mg 1 tab PO Q4H PRN cholecalciferol (vitamin D3) 50 mcg PO DAILY clonazepam 1 mg PO BID fluticasone propion-salmeterol 250-50 mcg/dose (Wixela Inhub) 1 ea PO BID fluticasone propionate 50 mcg/actuation 1 spray intranasal DAILY gabapentin 400 mg PO BEDTIME [Kneeling Scooter As directed] loratadine 10 mg PO DAILY PRN montelukast 10 mg PO DAILY pantoprazole 40 mg PO BID topiramate 100 mg PO BEDTIME umeclidinium 62.5 mcg/actuation (Incruse Ellipta) 1 inh inhalation DAILY 30 days Do you need a note to return to daycare/school/sports/work: No HPI COPD HPI Details KOBE IS 57 YEARS OLD FEMALE WHO IS HERE FOR FOLLOW-UP. SHE CLAIMS THAT SHE HAS NOT GONE BACK TO DRINKING, AND ALSO DOES NOT SMOKE ANYMORE. HER BREATHING IS REMAINING RELATIVELY STABLE AND UNDER CONTROL . SHE HAS VERY LITTLE. COUGH OR EXPECTORATION SHE CAN WALK AROUND WITHOUT GETTING MUCH SHORTNESS OF BREATH. SHE DOES NOT USE OXYGEN. FOR[facility]LY [facility], LATER [facility] Medical History Respiratory failure with hypoxia Dysphagia Atelectasis of right lung Musculoskeletal pain Anxiety and depression Ex-smoker Allergic rhinitis Asthma Cataract Vitamin B12 deficiency Vitamin D insufficiency GERD (gastroesophageal reflux disease) ETOH abuse Migraine SUNSHINE on CPAP HTN (hypertension) COPD (chronic obstructive pulmonary disease) Surgical History History of esophagogastroduodenoscopy (EGD) H/O colonoscopy S/P PRINCESS (total abdominal hysterectomy) History of total hysterectomy Family History Father Alcoholic Mother Diabetes mellitus HTN (hypertension) Mental health disorder Brother Substance use disorder Mental health disorder Brother Substance use disorder Daughter Mental health disorder Brother Substance use disorder Social History Household Members: Spouse Housing: House Do you presently have visiting nurse or other home services: No Alcohol intake: former Comment: refused alarm Patient Tobacco Use Status: Former Tobacco user Quit Date: 7 MONTHS AGO Tobacco use type: Cigarette e-Cigarette/Vaping Use: Never Used Second Hand Smoke Exposure: No Substance Use Type: Crack/Cocaine Advance Directives Date on File: 02/28/22 service: No Current occupational status: disabled 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 Cognitive needs: No Hearing needs: No Vision needs: Yes Review of Systems Const All systems reviewed & are unremarkable except as noted in HPI and below Eyes Reports no additional complaints ENT Reports nasal congestion (mild off and on ) Card Reports chest pain, Denies irregular heart rhythm, Denies leg edema and Reports dyspnea on exertion Resp Reports cough (mild off and on .), Reports dyspnea on exertion and Denies wheezing GI Reports abdominal pain (non specific , being worked up ) Aller/Immun Denies wheezing Physical Exam Vital Signs: Last Vital Signs Pulse 89 04/15/23 14:33 Resp 18 04/15/23 14:33 BP 114/68 04/15/23 14:33 Pulse Ox 97 04/15/23 14:33 Oxygen Delivery Method Room Air 04/15/23 14:33 BMI result Body Mass Index 32.0 Const Other: Anxious and, slightly short of breath during conversation. General: no acute distress, alert and awake Orientation/consciousness: patient oriented x3 HEENT Head: Yes normal to inspection General nose exam: No nasal polyps present and No nasal discharge present Face and sinus: Yes sinuses nontender Mouth: oropharynx normal Throat: Yes posterior oropharynx normal Eyes General: appearance normal, both eyes and all related structures Neck Neck: Yes normal visual inspection, Yes no lymphadenopathy, Yes trachea midline and Yes no JVD Thyroid: Thyroid normal Chest Chest palpation & inspection: normal inspection of the chest, normal palpation of entire chest wall and no tenderness Resp Other: Percussion note is resonant, breath sounds are distant especially over the basilar areas. No Wheezes or crepitations are heard today. Cardio Palpation: normal PMI Rate: regular rate Rhythm: regular rhythm Heart sounds: no gallops and no murmurs Peripheral pulses: Peripheral pulses 2+ throughout GI Palpation (GI): Soft to palpation, nontender, No hepatosplenomegaly present and no masses Auscultation: normal bowel sounds Back/Spine/Pelvis Thoracic/Lumbar Spine: thoracic and lumbar spine normal to inspection and thoraco-lumbar ROM limited Skin General skin exam: no rashes or lesions noted Neuro General: patient oriented x3 and no focal motor deficits Cranial nerves: Yes CN's II-XII intact bilaterally Extrem General: Yes normal to inspection, Yes no clubbing, cyanosis or edema and Yes no calf tenderness Psych Speech and movement: Normal speech and movement present Affect: Anxious affect present Assessment & Plan Assessment & Plan (1) Allergic rhinitis: Comment: SHE HAS THE ONGOING MODERATE DEGREE OF ALLERGIC RHINITIS. ACCORDING TO THE HISTORY IT HAS BECOME WORSE SINCE SHE WAS OFF MONTELUKAST. Code(s): J30.9 - Allergic rhinitis, unspecified Plan: TX: MONTELUKAST 10 MG DAILY WAS STARTED ON HER LAST VISIT AND THE NASAL SYMPTOMS HAVE IMPROVED. SHE IS ADVISED TO CONTINUE TAKING 1 TABLET A DAY. Flonase nasal spray 50 mcg 1 spray in each nostril daily. (2) Ex-smoker: Comment: She has not smoked for the last 6 month and is determined not to go back to smoking. Does not use nicotine patches at present Code(s): Z87.891 - Personal history of nicotine dependence Plan: as above (3) COPD (chronic obstructive pulmonary disease): Comment: PFT 09/2018, Mild obstructive Airways disorder . Clinically her COPD seems to be stable and well controlled. Code(s): J44.9 - Chronic obstructive pulmonary disease, unspecified Plan: WIXELA 250-1 INHALATION B.I.D.. INCRUSE ELLIPTA 1 INHALATION DAILY ALBUTEROL HFA 2 PUFFS. Q 4-6 HOURS P.R.N. Coding Level of Care Code Est Pt Level 3 (90391) Diagnoses Allergic rhinitis J30.9 Ex-smoker Z87.891 COPD (chronic obstructive pulmonary disease) J44.9
[2023-04-15 14:33] VITALS: BP 114/68; PULSE 89; RESP 18; O2SAT 97; BMI 32.0
== END 2023-04-15 14:58 | disposition home or self-care (01) ==
PROVIDERS: PCP Internal Medicine; Visit Provider Internal Medicine
DX: J30.9 Allergic rhinitis, unspecified (principal); Z87.891 Personal history of nicotine dependence; J44.9 Chronic obstructive pulmonary disease, unspecified
CPT/HCPCS: 99213

== ENCOUNTER → 2023-04-15 14:22 | Outpatient (BNVA) | payer OTHER, SELFPAY | PROVIDERS: PCP Internal Medicine; Visit Provider Internal Medicine | DX: J30.9 Allergic rhinitis, unspecified (principal); J44.9 Chronic obstructive pulmonary disease, unspecified; Z87.891 Personal history of nicotine dependence | CPT/HCPCS: 99212 ==

== ENCOUNTER 2023-04-17 12:05 | Outpatient (REF) | payer OTHER, SELFPAY | END 2023-04-17 12:06 | disposition home or self-care (01) | LOC: HO.HOSX 12:05 | PROVIDERS: Visit Provider Orthopaedic Surgery | DX: Z13.89 Encounter for screening for other disorder (principal) ==

== ENCOUNTER → 2023-04-23 09:58 | Outpatient (REF) | payer OTHER, SELFPAY ==
--- NOTE | 2023-04-23 10:01 | CA_ITS ---
Transthoracic Echocardiogram Patient (Last, First, Middle): Annie Pak M Gender: Female Date of : 1965 Age: 57 Procedure Date: 04/23/2023 Procedure Type: Transthoracic Echocardiogram Location: OP Height: 162.56 cm Weight: 85.73 kg BSA: 1.91 m2 Heart Rate: bpm BP: 124 / 68 mmHg Silk Screen Processor: FREDERIC Referring MD: Darrel Cortez MD Employee Relations Manager: Jozef Quiros MD Symptoms: R07.2 - Precordial pain Study Quality: Fair ECG Rhythm: Sinus Conclusions: - Essentially normal study Findings Left Ventricle Normal left ventricular size, thickness, and systolic function. The visually estimated ejection fraction is between 60-65%. Spectral Doppler is indicative of a normal filling pattern. Peak GLS measurement appears to be erroneous. Right Ventricle Normal right ventricular cavity size and systolic function. Atria The left atrium is likely dilated. There is no evidence of interatrial shunt. The right atrium is normal in size. Aortic Valve The aortic valve structure and function is likely normal. There is no aortic valve stenosis. There is no aortic valve regurgitation. Mitral Valve The mitral valve was not well visualized. There is no mitral valve regurgitation. There is no mitral valve stenosis. Pulmonic Valve The pulmonic valve was not well visualized. Tricuspid Valve Normal tricuspid valve structure. There is trace tricuspid valve regurgitation. The right ventricular systolic pressure is normal. The right ventricular systolic pressure is 24 mmHg. Normal right atrial pressure. There is no evidence of pulmonary hypertension. Great Vessels All visible segments of the aorta are normal in size. The pulmonary artery was not well visualized. There is no dilatation of the ascending aorta measuring 3.40 cm. Venous The inferior vena cava is normal in size and collapses greater than 50% with inspiration. Pericardium/Pleural There is no evidence of pericardial effusion. Measurements 2D Linear Measurements IVSd: 0.88 0.6-0.9/0.6-1.0 cm LVIDd: 3.90 3.9-5.3/4.2-5.9 cm LVIDd Index: 2.04 2.4-3.2/2.2-3.1 cm/m2 LVIDs: 2.49 2.0-3.6 cm LVPWd: 0.77 0.7-1.1 cm LA Diam: 3.20 2.7-3.8/3.0-4.0 cm LAIDs Index: 1.68 1.5-2.3 cm/m2 LV Mass: 116.58 67-162/88-224 g LV Mass Index: 61.04 43-95/49-115 g/m2 LVOT Diam: 2.00 3.0+(-)1.3 cm 2D Systolic Function EF 4C: 61.40 >55% EF 2C: 61.00 >55% EF BiP: 62.90 >55% Mitral Valve MV Pk E: 0.70 MV PK A: 0.54 MV Decel Time: 198.00 E/A: 1.30 E'Lateral: 10.00 E'Medial: 7.07 E/E' Med: 9.90 E/E' Lat: 7.00 PHT: 58.00 MVA PHT: 3.79 Decel Sanders: 3.53 Aortic Valve AoV Pk Sam: 1.47 AoV Mn Sam: 0.96 AoV VTI: 0.29 AoV Pk Grad: 9.00 Aov Mn Grad: 4.00 PRIMO Cont.VTI: 2.89 LVOT LVOT Pk Sam: 1.40 LVOT Mn Sam: 0.89 LVOT VTI: 0.26 LVOT Pk Grad: 8.00 LVOT Mn Grad: 4.00 LVOT Diam: 2.00 LVOT Area: 3.14 Diastolic Function MV Pk E: 0.70 MV Pk A: 0.54 E/A: 1.30 E'Medial: 7.07 E/E' Med: 9.90 E' Laterial: 10.00 E/E' Lat: 7.00 Right Ventricle TAPSE (mm): 22.40 TVS' Sam: 9.57 Tricuspid Valve TR Pk Sam: 2.00 TR Pk Grad: 16.00 RA Press: 8.00 RVSP: 24.00 Great Vessels Aorta Sinus of Valsalva: 3.60 2.0-3.[address] Ridge: 2.49 1.7-3.4 cm Ao Asc: 3.40 2.1-3.4 cm Ao Arch: 2.60 Updated in Other Vendor System with Status of Final Jozef Quiros MD electronically signed on 04/24/2023 3:17:05 PM with status of Final
== END ==
LOC: HO.CARD 09:58
PROVIDERS: PCP Internal Medicine; Visit Provider Internal Medicine
DX: R07.2 Precordial pain (principal)
CPT/HCPCS: 93306

== ENCOUNTER → 2023-04-23 10:01 | Outpatient (BNV) | payer OTHER, SELFPAY | PROVIDERS: PCP Internal Medicine; Visit Provider Internal Medicine Cardiovascular Disease | DX: I51.7 Cardiomegaly (principal); R07.2 Precordial pain | CPT/HCPCS: 93306; 93356 ==

== ENCOUNTER 2023-04-26 09:17 | Outpatient (REF) | payer OTHER, SELFPAY ==
--- NOTE | ~2023-04-26 | MM_ITS ---
EXAMINATION: BONE DENSITOMETRY CLINICAL INDICATION: Age-related osteoporosis without current pathological fracture. COMPARISON: This is the patient's baseline examination. TECHNIQUE: Using a [employer] DXA System (software version: 13.1) manufactured by [employer], dual-energy x-ray absorptiometry was performed of the lumbar spine and left hip. The images are of good technical quality. Summary results are attached. FINDINGS: LEFT FEMUR, NECK: BMD 0.768 g/cm2, Z-score -1.2, T-score -1.9, osteopenia. LEFT FEMUR, TOTAL: BMD 0.826 g/cm2, Z-score -1.0, T-score -1.4, osteopenia. AP SPINE L1-L4: BMD 0.844 g/cm2, Z-score -2.3, T-score -2.8, osteoporosis. IDENTIFIED RISK FACTORS: Early menopause, height loss, hysterectomy, recurrent falls, bilateral oophorectomy, secondary osteoporosis. HISTORY OF FRACTURE: None listed. MEDICATIONS: Vitamin D, ERT/SERMS. MM/XR DEXA axial skeleton IMPRESSION: 1. DIAGNOSIS: Osteoporosis based on the lowest T-score value of -2.8 in the lumbar spine applying World Health Organization criteria. 2. 10-YEAR FRACTURE RISK PREDICTION, FRAX: According to the guidelines, FRAX calculation should only be performed on patients in the osteopenia bone density category. Therefore, FRAX was not performed on this patient. 3. Treatment Recommendations: NOF guidelines recommend consideration for treatment in postmenopausal women and men age 50 and older presenting with the following: -A hip or vertebral (clinical or morphometric) fracture. -T-score less than or equal to -2.5 at the femoral neck or spine after appropriate evaluation to exclude secondary causes. -Low bone mass at the hip or spine and a 10-year fracture probability by FRAX of greater than or equal to 3% for hip fracture or greater than or equal to 20% for major osteoporotic fracture based on the [place] adapted WHO algorithm. 4. Other Recommendations: All treatment decisions require clinical judgment and consideration of individual patient factors, including patient preferences, comorbidities, previous drug use, risk factors not captured in the FRAX model (e.g. frailty, falls, vitamin D deficiency, increased bone turnover, interval significant decline in bone density) and possible under or overestimation of fracture risk by FRAX. Additional medical evaluation for secondary cause of low bone mineral density may be appropriate. FUTURE SCAN RECOMMENDATION: People with diagnosed cases of osteoporosis or at high risk for fracture should have regular bone mineral density tests. For patients eligible for Medicare, routine testing is allowed once every 2 years. The testing frequency can be increased to one year for patients who have rapidly progressing disease, those who are receiving or discontinuing medical therapy to restore bone mass, or have additional risk factors.
== END 2023-04-26 09:18 | disposition home or self-care (01) ==
LOC: HO.MAMMO 09:17
PROVIDERS: PCP Internal Medicine; Visit Provider Internal Medicine
DX: Z13.820 Encounter for screening for osteoporosis (principal); M81.0 Age-related osteoporosis without current pathological fracture; Z78.0 Asymptomatic menopausal state
CPT/HCPCS: 77080

== ENCOUNTER 2023-05-14 10:25 | Outpatient (AMB) | payer OTHER, SELFPAY ==
--- NOTE | 2023-05-14 10:30 | A.OFFPC_ITS ---
Vital Signs 05/14/23 10:31 Height 5 ft 5 in Weight 192 lb BMI 31.9 BP 108/78 Blood Pressure Location Lt brachial Position Sitting Pulse 94 Pulse Source Pulse Oximeter Pulse Oximetry (%) 97 Oxygen Delivery Method Room Air Intake Visit Reasons: PE Intake Note: Pt is here today for PE. Pt states that she is a little depressed. Pt states that she has weekly therapy. Pt states that she has been urinating more then usually. Allergies lamotrigine [From LAMICTAL] Allergy (Severe, Verified 05/14/23 10:34) RASH sumatriptan [From IMITREX] Allergy (Intermediate, Verified 05/14/23 10:34) RASH Medication List - Last Reconciled 05/14/23 by Sandi Andrade MD albuterol sulfate 90 mcg/actuation 2 puffs inhalation Q6H PRN alendronate (Fosamax) 70 mg PO QWEEK baclofen 10 mg PO BEDTIME kcrhuxtpys-iqhfzewnskmmw-erqj 50-325-40 mg 1 tab PO Q4H PRN cholecalciferol (vitamin D3) 50 mcg PO DAILY clonazepam 1 mg PO BID fluticasone propion-salmeterol 250-50 mcg/dose (Wixela Inhub) 1 ea PO BID fluticasone propionate 50 mcg/actuation 1 spray intranasal DAILY gabapentin 400 mg PO BEDTIME [Kneeling Scooter As directed] loratadine 10 mg PO DAILY PRN montelukast 10 mg PO DAILY pantoprazole 40 mg PO BID tirzepatide (Mounjaro) 2.5 mg (0.5 mL) subcut QWEEK 4 weeks topiramate 100 mg PO BEDTIME umeclidinium 62.5 mcg/actuation (Incruse Ellipta) 1 inh inhalation DAILY 30 days Tobacco use date assessed: 05/14/23 Dental Screening Dental Screen Date: 02/13/23 Did you have a dental visit in the last 12 months?: Yes Did you have a dental problem in the last 6 months where you did not have access to dental care?: No Was dental information given to patient?: Patient has dentist HPI PE HPI Details Pt presents for a physical. She complains of not being able to lose weight for the last 4 months. patient had seen water and gas helper and has been decreasing caloric intake and exercising at least 3 times a week. She lost about 14 lb but had plateaued for the last few months. [facility] Medical History (Updated 05/14/23 @ 11:28 by Sandi Andrade MD) Respiratory failure with hypoxia Musculoskeletal pain Anxiety and depression Ex-smoker Allergic rhinitis Cataract Vitamin B12 deficiency Vitamin D insufficiency GERD (gastroesophageal reflux disease) ETOH abuse Migraine SUNSHINE on CPAP COPD (chronic obstructive pulmonary disease) Surgical History (Updated 05/14/23 @ 11:21 by Sandi Andrade MD) History of esophagogastroduodenoscopy (EGD) H/O colonoscopy S/P PRINCESS (total abdominal hysterectomy) History of total hysterectomy Family History Father Alcoholic Mother Diabetes mellitus HTN (hypertension) Mental health disorder Brother Substance use disorder Mental health disorder Brother Substance use disorder Daughter Mental health disorder Brother Substance use disorder Social History Household Members: Spouse Housing: House Do you presently have visiting nurse or other home services: No Alcohol intake: former Comment: refused alarm Patient Tobacco Use Status: Former Tobacco user Quit Date: 7 MONTHS AGO Tobacco use type: Cigarette e-Cigarette/Vaping Use: Never Used Second Hand Smoke Exposure: No Substance Use Type: Crack/Cocaine Advance Directives Date on File: 02/28/22 service: No Current occupational status: disabled 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 1. Little interest or pleasure in doing things: several days 2. Feeling down, depressed, or hopeless: more than half the days 3. Trouble falling or staying asleep, or sleeping too much: not at all 4. Feeling tired or having little energy: more than half the days 5. Poor appetite or overeating: more than half the days 6. Feeling bad about yourself - or that you are a failure or have let yourself or your family down: more than half the days 7. Trouble concentrating on things, such as reading the newspaper or watching television: not at all 8. Moving or speaking so slowly that other people could have noticed. Or the opposite - being so fidgety or restless that you have been moving around a lot more than usual: several days 9. Thoughts that you would be better off or of hurting yourself in some way: not at all Total score: 10 Depression Screening Interpretation: Positive (Patient is established with a counselor and a prescriber) Depression Screening Follow-up: Existing condition and In treatment Depression Screening Done: Yes 69707 - PHQ-9 Billing: Yes Source: Developed by Drs. Angelo Oseguera, Marzena Parker, Tony Vick and colleagues, with an educational gee from [employer]. Thrive Questionnaire Date Thrive assessed: 05/14/23 I am a: Patient What is your living situation today?: I have a steady place to live Within the past 12 months, did the food you bought not last and you didn't have the money to get more?: Never true Within the past 12 months, did you worry whether your food would run out before you got money to buy more?: Never true Do you have trouble paying for medicines?: No Do you have trouble getting transportation to medical appointments?: No Do you have trouble paying your heating and electricity bill?: No Do you have trouble taking care of your child, family member or friend?: No Do you have trouble with day-to-day activities such as bathing, preparing meals, shopping, managing finances, etc.?: No Are you currently unemployed and looking for a job?: No Are you interested in more education?: No Please select the resources that you would like help with: None THRIVE Score: 0 AUDIT C Alcohol Use Questionnaire (AUDIT-C) 1. How often do you have a drink containing alcohol?: Never 3. How often do you have six or more drinks on one occasion?: Never Total Score: 0 RICARDO-7 AMB Questionnaire RICARDO-7 Date RICARDO - 7 assessed: 05/14/23 Feeling nervous, anxious, or on edge: 2 = More than half the days Not being able to stop or control worryin = More than half the days Worrying too much about different things: 2 = More than half the days Trouble relaxin = More than half the days Being so restless that it is hard to sit still: 0 = Not at all Becoming easily annoyed or irritable: 0 = Not at all Feeling afraid as if something awful might happen: 0 = Not at all Total RICARDO-7 score (0-4 normal; 5-9 mild; 10-14 moderate; 15-21 severe): 8 Source: Developed by Drs. Angelo Oseguera, Marzena Parker, Tony Vick and colleagues, with an educational gee from [employer]. RICARDO-7 Assessment Billing RICARDO-7 Assessment Tool: RICARDO-7 Assessment 32866 Physical exam (Primary Care) Vital Signs: Last Vital Signs Pulse 94 05/14/23 10:31 BP 108/78 05/14/23 10:31 Pulse Ox 97 05/14/23 10:31 Oxygen Delivery Method Room Air 05/14/23 10:31 BMI result Body Mass Index 31.9 Tobacco/Smoking Status: Tobacco use Status Tobacco use date assessed 05/14/23 05/14/23 10:38 Patient Tobacco Use Status Former Tobacco user 05/14/23 10:38 Tobacco use type Cigarette 05/14/23 10:38 e-Cigarette/Vaping Use Never Used 05/14/23 10:38 PHQ-9: PHQ-9 Score PHQ-9: Total score 10 05/14/23 11:14 Depression Screening Interpretation: Positive (Patient is established with a counselor and a prescriber) Depression Screening Follow-up: Existing condition and In treatment Thrive Assessment: Date of Thrive Assessment Date Thrive assessed 05/14/23 05/14/23 11:14 Const General: no acute distress HENMT Head: Yes normal to inspection Ears: hearing grossly normal bilaterally Face and sinus: Yes normal facial exam Mouth: Normal oral and palatal mucosa present Throat: Yes posterior oropharynx normal Eyes General: appearance normal, both eyes and all related structures Neck Neck: Yes supple Resp Effort & Inspection: normal respiratory effort Auscultation: clear to auscultation bilaterally Cardio Rhythm: regular rhythm Heart sounds: S1 normal heart sound present and S2 normal heart sound present GI Inspection: Yes normal to inspection Palpation (GI): Soft to palpation Percussion: Yes normal to percussion Auscultation: normal bowel sounds Results AMB Urinalysis, Automated UA Leukoctes 15 Sylvester/uL Last Edit by SARA Parra on 05/14/23 10:52 +- Rajwinder Sanders 05/14/23 10:52 UA Nitrite Negative Last Edit by Rajwinder Sanders Yesenia on 05/14/23 10:52 UA Urobilinogen 0.2 mg/dL Last Edit by Rajwinder Sanders Yesenia on 05/14/23 10: 52 UA Protein 0 mg/dL Last Edit by Rajwinder Sanders Yesenia on 05/14/23 10:52 UA pH 6.0 Last Edit by Rajwinder Sanders [facility] on 05/14/23 10:52 UA Blood 0 Davon/uL Last Edit by Rajwinder Sanders [facility] on 05/14/23 10:52 UA Specific [place] 1.005 Last Edit by Rajwinder Sanders Yesenia on 05/14/23 10 :52 UA Ketone Negative Last Edit by Rajwinder Sanders Yesenia on 05/14/23 10:52 UA Bilirubin 0 mg/dL Last Edit by Rajwinder Sanders Yesenia on 05/14/23 10:52 UA Glucose 0 mg/dL Last Edit by Rajwinder Sanders Yesenia on 05/14/23 10:52 Results Reviewed Results Reviewed: Laboratory Last Values Urine pH (Auto) 6.0 05/14/23 10:51 Specific [place] (Auto) 1.005 05/14/23 10:51 Urine Protein (Auto) 0 mg/dL 05/14/23 10:51 Glucose (UA)(Auto) 0 mg/dL 05/14/23 10:51 Urine Ketones (Auto) Negative 05/14/23 10:51 Urine Blood (Auto) 0 Davon/uL 05/14/23 10:51 Urine Nitrite (Auto) Negative 05/14/23 10:51 Urine Bilirubin (Auto) 0 mg/dL 05/14/23 10:51 Urine Urobilinogen (Auto) 0.2 mg/dL 05/14/23 10:51 Leukocyte Esterase (Auto) 15 Sylvester/uL 05/14/23 10:51 Assessment and Plan Assessment & Plan (1) Osteoporosis: Comment: DEXA 05/04 T score -2.8 spine, Fosamax started 06/04 Code(s): M81.0 - Age-related osteoporosis without current pathological fracture Plan: Start Fosamax side effects discussed with the patient patient will continue vitamin D3 and follow-up in 3 months (2) Annual physical exam: Code(s): Z00.00 - Encounter for general adult medical examination without abnormal findings Plan: Since well-balanced diet regular exercise weight loss discussed with the patient. Mounjaro 2.5 mg weekly will be started to facilitate further weight loss. side effects discussed with the patient .she will follow-up in 3 months (3) ETOH abuse: Comment: Longstanding history of alcohol abuse. She had resumed drinking, after her , about 6 months ago . Now she is remaining sober for the last 3 months. Does not use any meds. Code(s): F10.10 - Alcohol abuse, uncomplicated (4) Anxiety and depression: Comment: She is getting TMS treatment. Anxiety and depression are much improved . Code(s): F41.9 - Anxiety disorder, unspecified; F32.A - Depression, unspecified Plan: Patient is established with a counselor and a prescriber has been taking gabapentin Topamax and clonazepam (5) COPD (chronic obstructive pulmonary disease): Comment: PFT 09/2018, Mild obstructive Airways disorder . Clinically her COPD seems to be stable and well controlled. Code(s): J44.9 - Chronic obstructive pulmonary disease, unspecified Plan: Continue inhalers follow-up with overlock sewing machine operator for lung cancer screening program (6) H/O colonoscopy: Comment: 11/2018 repeat 10 years Code(s): Z98.890 - Other specified postprocedural states Orders: Orders Comprehensive Coram. Panel Fast 3 Months E53.8 - Deficiency of other specified B group vitamins, E55.9 - Vitamin D deficiency, unspecified, J44.9 - Chronic obstructive pulmonary disease, unspecified, R73.9 - Hyperglycemia, unspecified, Z00.00 - Encounter for general adult medical examination without abnormal findings Complete Blood Count Auto Diff 3 Months E53.8 - Deficiency of other specified B group vitamins, E55.9 - Vitamin D deficiency, unspecified, J44.9 - Chronic obstructive pulmonary disease, unspecified, R73.9 - Hyperglycemia, unspecified, Z00.00 - Encounter for general adult medical examination without abnormal findings Vitamin B12 and Folate 3 Months E53.8 - Deficiency of other specified B group vitamins, E55.9 - Vitamin D deficiency, unspecified, J44.9 - Chronic obstructive pulmonary disease, unspecified, R73.9 - Hyperglycemia, unspecified, Z00.00 - Encounter for general adult medical examination without abnormal findings Vitamin D 25-OH Total 3 Months E53.8 - Deficiency of other specified B group vitamins, E55.9 - Vitamin D deficiency, unspecified, J44.9 - Chronic obstructive pulmonary disease, unspecified, R73.9 - Hyperglycemia, unspecified, Z00.00 - Encounter for general adult medical examination without abnormal findings TSH reflex Free T4 3 Months E53.8 - Deficiency of other specified B group vitamins, E55.9 - Vitamin D deficiency, unspecified, J44.9 - Chronic obstructive pulmonary disease, unspecified, R73.9 - Hyperglycemia, unspecified, Z00.00 - Encounter for general adult medical examination without abnormal findings Hemoglobin A1c 3 Months E53.8 - Deficiency of other specified B group vitamins, E55.9 - Vitamin D deficiency, unspecified, J44.9 - Chronic obstructive pulmonary disease, unspecified, R73.9 - Hyperglycemia, unspecified, Z00.00 - Encounter for general adult medical examination without abnormal findings AMB Urinalysis Automated Today Z13.9 - Encounter for screening, unspecified Medications: New tirzepatide (Mounjaro) 2.5 mg (0.5 mL) subcut QWEEK 4 weeks 2 mL 4RF alendronate (Fosamax) 70 mg PO QWEEK 10 tabs 4RF Coding Level of Care Code Est Pt Prev Care 40-64y(68459) Diagnoses Osteoporosis M81.0 Annual physical exam Z00.00 ETOH abuse F10.10 Anxiety and depression F41.9; F32.A COPD (chronic obstructive pulmonary disease) J44.9 H/O colonoscopy Z98.890 Additional Codes RICARDO-7 Assessment Billing - RICARDO-7 Assessment Tool: RICARDO-7 Assessment 51345 ([id number])
[2023-05-14 10:31] VITALS: BP 108/78; PULSE 94; O2SAT 97; BMI 31.9
== END 2023-05-14 11:30 | disposition home or self-care (01) ==
PROVIDERS: Visit Provider Internal Medicine
DX: Z00.00 Encounter for general adult medical examination without abnormal findings (principal); M81.0 Age-related osteoporosis without current pathological fracture; J44.9 Chronic obstructive pulmonary disease, unspecified; F10.10 Alcohol abuse, uncomplicated; R35.0 Frequency of micturition; F41.9 Anxiety disorder, unspecified; F32.A Depression, unspecified; Z98.890 Other specified postprocedural states
CPT/HCPCS: 81003; 99396

== ENCOUNTER 2023-05-14 11:11 | Outpatient (REF) | payer OTHER, SELFPAY ==
[2023-05-14 16:37] LABS: Anion Gap 12 (12-20); Blood Urea Nitrogen 21 mg/dL (9-16); Calcium 9.9 mg/dL (8.4-10.2); Carbon Dioxide 26 mmol/L (22-29); Chloride 104 mmol/L (96-108); Estimated Glomerular Filt Rate > 60; Glucose Random 101 mg/dL (60-115); Sodium 138 mmol/L (135-145)
[2023-05-17 08:04] LABS: TS Negative Control Passed; TS Panel A 0; TS Panel B 0; TS Positive Control Passed; TSpotTB Negative (Negative)
== END 2023-05-14 11:12 | disposition home or self-care (01) ==
LOC: HO.HMGCLDS 11:11
PROVIDERS: Internal Medicine; PCP Internal Medicine; Visit Provider Internal Medicine
DX: J44.9 Chronic obstructive pulmonary disease, unspecified (principal); R07.2 Precordial pain
CPT/HCPCS: 36415; 80048; 86481

== ENCOUNTER 2023-06-06 11:00 | Outpatient (AMB) | payer OTHER, SELFPAY ==
--- NOTE | 2023-06-06 11:05 | A.OFFVIS_ITS ---
Intake Visit Reasons: OV-Left shoulder pain-follow up Intake Note: Annie a 57 year old female who presents today for a follow up of left shoulder pain, last injection 03/06. Patient reports injection last until a couple of weeks ago however she does not want to keep getting injections. Her pain is in her shoulder however has been radiating down in armpit area. Limited ROM. States at home exercises are not helping. Allergies lamotrigine [From LAMICTAL] Allergy (Severe, Verified 06/06/23 11:14) RASH sumatriptan [From IMITREX] Allergy (Intermediate, Verified 06/06/23 11:14) RASH HPI HPI OV-Left shoulder pain-follow up: Details: 57-year-old female who returns to the office today for a follow-up of left shoulder pain. She currently states she has limited ROM, pain and weakness in her shoulder which radiates down to her armpit area. Her pain is aggravated with overhead reaching and lifting. Her shoulder pain makes it difficult to run or perform AODL. She had attended physical therapy for her shoulder in the past. She is also working on home exercises without benefits. She had her last injection on 03/01/23 which provided her relief for about 2 weeks. She is not interested in repeating the injection. [facility] Medical History (Updated 05/14/23 @ 11:28 by Sandi Andrade MD) Respiratory failure with hypoxia Musculoskeletal pain Anxiety and depression Ex-smoker Allergic rhinitis Cataract Vitamin B12 deficiency Vitamin D insufficiency GERD (gastroesophageal reflux disease) ETOH abuse Migraine SUNSHINE on CPAP COPD (chronic obstructive pulmonary disease) Surgical History (Updated 05/14/23 @ 11:21 by Sandi Andrade MD) History of esophagogastroduodenoscopy (EGD) H/O colonoscopy S/P PRINCESS (total abdominal hysterectomy) History of total hysterectomy Family History Father Alcoholic Mother Diabetes mellitus HTN (hypertension) Mental health disorder Brother Substance use disorder Mental health disorder Brother Substance use disorder Daughter Mental health disorder Brother Substance use disorder Social History Household Members: Spouse Housing: House Do you presently have visiting nurse or other home services: No Alcohol intake: former Comment: refused alarm Patient Tobacco Use Status: Former Tobacco user Quit Date: 7 MONTHS AGO Tobacco use type: Cigarette e-Cigarette/Vaping Use: Never Used Second Hand Smoke Exposure: No Substance Use Type: Crack/Cocaine Advance Directives Date on File: 02/28/22 service: No Current occupational status: disabled 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 Tenderness over the bicipital groove and along the deltoid region of the shoulder. Forward flexion to 175, external rotation to 90, internal rotation to S1. 5/5 RTC strength. Negative Pak and cross body abduction. NVI. Assessment & Plan Assessment & Plan (1) Rotator cuff impingement syndrome of left shoulder: Code(s): M75.42 - Impingement syndrome of left shoulder Category: Medical Plan She would like to hold off on injection at this time which I feel is appropriate as she has tried and failed all conservative treatment at this time and experiences significant difficulty with AODL. She will see Dr. Pierre for discussing the next step in her treatment whether it will be surgical intervention or continued conservative treatment. She is content with this plan. Patient Instructions: Scribed for Jethro Quiles PA-C, by Javon Sifuentes medical voucher clerk, on 06/06/2023 at 11:15 AM HANG. IJethro PA-C, have personally reviewed and agree with the information entered by the scribe. Coding Level of Care Code Est Pt Level 3 (98432) Diagnoses Rotator cuff impingement syndrome of left shoulder M75.42
== END 2023-06-06 11:38 | disposition home or self-care (01) ==
PROVIDERS: PCP Internal Medicine; Visit Provider Physician Assistant
DX: M75.42 Impingement syndrome of left shoulder (principal)
CPT/HCPCS: 99213

== ENCOUNTER → 2023-06-06 11:00 | Outpatient (BNVA) | payer OTHER, SELFPAY | PROVIDERS: PCP Internal Medicine; Visit Provider Physician Assistant | DX: M75.42 Impingement syndrome of left shoulder (principal) | CPT/HCPCS: 99212 ==

== ENCOUNTER 2023-06-19 13:22 | Outpatient (REF) | payer OTHER, SELFPAY | END 2023-06-19 13:23 | disposition home or self-care (01) | LOC: HO.HOSX 13:22 | PROVIDERS: Visit Provider Orthopaedic Surgery | DX: Z13.89 Encounter for screening for other disorder (principal) ==

== ENCOUNTER 2023-06-21 12:05 | Outpatient (AMB) | payer OTHER, SELFPAY ==
--- NOTE | 2023-06-21 12:07 | A.OFFVIS_ITS ---
Vital Signs 06/21/23 12:09 Height 5 ft 5 in Weight 192 lb BMI 31.9 Intake Visit Reasons: OV-left shoulder discuss options ? surgery Allergies lamotrigine [From LAMICTAL] Allergy (Severe, Verified 07/10/23 14:47) RASH sumatriptan [From IMITREX] Allergy (Intermediate, Verified 07/10/23 14:47) RASH HPI HPI OV-left shoulder discuss options ? surgery: Details: Annie is a 57 year old female who presents today for a follow up of her left shoulder Rotator cuff impingement syndrome, Last injection done 03/01/23 with Ta- Ale. Patient reports that she does not not want to receive further injections as they are not helpful and she would like to discuss surgical interventions [facility] Medical History (Updated 07/12/23 @ 16:20 by Fidencio Pierre MD) Nocturnal hypoxemia Restrictive lung disease Respiratory failure with hypoxia Musculoskeletal pain Anxiety and depression Ex-smoker Allergic rhinitis Cataract Vitamin B12 deficiency Vitamin D insufficiency GERD (gastroesophageal reflux disease) ETOH abuse Migraine SUNSHINE on CPAP COPD (chronic obstructive pulmonary disease) Surgical History History of esophagogastroduodenoscopy (EGD) H/O colonoscopy S/P PRINCESS (total abdominal hysterectomy) History of total hysterectomy Family History Father Alcoholic Mother Diabetes mellitus HTN (hypertension) Mental health disorder Brother Substance use disorder Mental health disorder Brother Substance use disorder Daughter Mental health disorder Brother Substance use disorder Social History Household Members: Spouse Housing: House Do you presently have visiting nurse or other home services: No Alcohol intake: former Comment: refused alarm Patient Tobacco Use Status: Former Tobacco user Tobacco use type: Cigarette e-Cigarette/Vaping Use: Never Used Second Hand Smoke Exposure: No Substance Use Type: Crack/Cocaine Advance Directives Date on File: 02/28/22 service: No Current occupational status: disabled 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 Cognitive needs: No Hearing needs: No Vision needs: Yes Physical Exam Vital Signs: BMI result Body Mass Index 31.9 Const General: cooperative, healthy appearing, no acute distress and well groomed Orientation/consciousness: oriented to person and oriented to place HEENT Head: Yes normal to inspection, Yes normocephalic and Yes atraumatic Eyes General: appearance normal, both eyes and all related structures Alignment and Position: alignment normal Conjunctivae: conjunctivae normal EOM: EOMs intact bilaterally Neck Neck: Yes normal visual inspection and Yes trachea midline Resp Other: No rerpiratory distress Effort & Inspection: normal respiratory effort and able to speak in complete sentences Cardio Other: Palpable radial pulse with no appreciable rythmic abnormalities GI Other: No abdominal distension Back/Spine/Pelvis Cervical Spine: normal cervical lordosis and cervical ROM normal Skin General skin exam: no rashes or lesions noted Neuro General: oriented to person, oriented to place and gait normal Extrem Other: Patient has 45/90/120/L5 4+/5 empty can Positive Pasha and Andrew Results Reviewed Results Reviewed: I personally reviewed the MR images. Mild abnormality of the supraspinatus compatible with tendinosis and perhaps small areas of partial tearing but no measurable defect or tendon retraction. Mild arthrosis of the acromioclavicular joint. Trace fluid in the subacromial subdeltoid bursa compatible with normal variation or mild bursitis. Assessment & Plan Assessment & Plan (1) Rotator cuff tear, left: Code(s): M75.102 - Unspecified rotator cuff tear or rupture of left shoulder, not specified as traumatic Category: Medical Plan: 57 yo with partial thickness rtc tear who has not improved with PT and injections. We discussed treatment options and I recommend shoulder with possible rotator duff repair. I discussed this with her and she is amenable to surgery. I discussed the risks benefits and alternatives including but not limited to the risk of pain, infection, stiffness, need for further surgery as well as potential medical complications such as blood clots, pulmonary embolism and cardiac complications. She expressed understanding and we will proceed forward accordingly. Coding Level of Care Code Est Pt Level 4 (00445) Diagnoses Rotator cuff tear, left M75.102
[2023-06-21 12:09] VITALS: BMI 31.9
== END 2023-06-21 14:09 | disposition home or self-care (01) ==
PROVIDERS: PCP Internal Medicine; Visit Provider Orthopaedic Surgery
DX: M75.102 Unspecified rotator cuff tear or rupture of left shoulder, not specified as traumatic (principal)
CPT/HCPCS: 99214

== ENCOUNTER → 2023-06-21 12:05 | Outpatient (BNVA) | payer OTHER, SELFPAY | PROVIDERS: PCP Internal Medicine; Visit Provider Orthopaedic Surgery | DX: M75.102 Unspecified rotator cuff tear or rupture of left shoulder, not specified as traumatic (principal) | CPT/HCPCS: 99212 ==

== ENCOUNTER 2023-07-10 14:11 | Outpatient (AMB) | payer OTHER, SELFPAY ==
[2023-07-10 14:34] VITALS: BP 130/80; PULSE 87; O2SAT 96; BMI 33.9
--- NOTE | 2023-07-10 14:34 | MHC.OFFVIS ---
Vital Signs 07/10/23 14:34 Height 5 ft 5 in Weight 203 lb 14.841 oz BMI 33.9 BP 130/80 Blood Pressure Location Lt brachial Position Sitting Pulse 87 Pulse Source Pulse Oximeter Pulse Oximetry (%) 96 Oxygen Delivery Method Room Air Intake Visit Reasons: pre-op ortho Intake Note: pt is here for pre-op clearance for rotator cuff surgery on 07/31/[address] 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 Allergies lamotrigine [From LAMICTAL] Allergy (Severe, Verified 07/10/23 14:47) RASH sumatriptan [From IMITREX] Allergy (Intermediate, Verified 07/10/23 14:47) RASH Medication List - Last Reconciled 07/10/23 by Tremaine Murphy MD albuterol sulfate 90 mcg/actuation 2 puffs inhalation Q6H PRN alendronate (Fosamax) 70 mg PO QWEEK tufjkcfyhr-nqkrgeryvptkc-wzxt 50-325-40 mg 1 tab PO Q4H PRN celecoxib (Celebrex) 200 mg PO BID 30 days cholecalciferol (vitamin D3) 50 mcg PO DAILY clonazepam 1 mg PO BID fluticasone propion-salmeterol 250-50 mcg/dose (Wixela Inhub) 1 ea PO BID fluticasone propionate 50 mcg/actuation 1 spray intranasal DAILY gabapentin 400 mg PO BEDTIME [Kneeling Scooter As directed] loratadine 10 mg PO DAILY PRN montelukast 10 mg PO DAILY pantoprazole 40 mg PO BID topiramate 100 mg PO BEDTIME umeclidinium 62.5 mcg/actuation (Incruse Ellipta) 1 inh inhalation DAILY 30 days Do you need a note to return to daycare/school/sports/work: No HPI HPI pre-op ortho: Details: THIS 57 YEARS OLD FEMALE MODERATELY OBESE, WITH PAST HISTORY OF SMOKING AND DRINKING ALCOHOL, SHE DOES HAVE MODERATE DEGREE OF RESTRICTIVE PULMONARY DISORDER MAINLY RELATED TO HER OBESITY, AND CHRONIC OBSTRUCTIVE PULMONARY DISORDER RELATED TO HER PREVIOUS SMOKING. SHE ALSO HAS NOCTURNAL HYPOXEMIA FOR WHICH SHE USES O2 2 L/MINUTE AT NIGHT. AT PRESENT DENIES ANY COUGH WHEEZING OR SHORTNESS OF BREATH. HER NASAL ALLERGY SYMPTOMS ARE ALSO UNDER GOOD CONTROL. ABOUT 4 WEEKS AGO SHE WAS DEPRESSED BECAUSE OF HER 'S ANNIVERSARY. SO SHE DRANK FOR ABOUT 2 DAYS THEN AFTER THAT HAS NOT USED ALCOHOL. PATIENT IS TO UNDERGO REPAIR OF THE ROTATOR COUGH OF LEFT SHOULDER. [facility] Medical History (Updated 07/10/23 @ 15:09 by Tremaine Murphy MD) Nocturnal hypoxemia Restrictive lung disease Respiratory failure with hypoxia Musculoskeletal pain Anxiety and depression Ex-smoker Allergic rhinitis Cataract Vitamin B12 deficiency Vitamin D insufficiency GERD (gastroesophageal reflux disease) ETOH abuse Migraine SUNSHINE on CPAP COPD (chronic obstructive pulmonary disease) Surgical History History of esophagogastroduodenoscopy (EGD) H/O colonoscopy S/P PRINCESS (total abdominal hysterectomy) History of total hysterectomy Family History Father Alcoholic Mother Diabetes mellitus HTN (hypertension) Mental health disorder Brother Substance use disorder Mental health disorder Brother Substance use disorder Daughter Mental health disorder Brother Substance use disorder Social History Household Members: Spouse Housing: House Do you presently have visiting nurse or other home services: No Alcohol intake: former Comment: refused alarm Patient Tobacco Use Status: Former Tobacco user Quit Date: 7 MONTHS AGO Tobacco use type: Cigarette e-Cigarette/Vaping Use: Never Used Second Hand Smoke Exposure: No Substance Use Type: Crack/Cocaine Advance Directives Date on File: 02/28/22 service: No Current occupational status: disabled 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 Cognitive needs: No Hearing needs: No Vision needs: Yes Review of Systems Const All systems reviewed & are unremarkable except as noted in HPI and below Eyes Reports no additional complaints ENT Reports nasal congestion (mild off and on ) Card Reports chest pain, Denies irregular heart rhythm, Denies leg edema and Reports dyspnea on exertion Resp Reports cough (mild off and on .), Reports dyspnea on exertion and Denies wheezing GI Reports abdominal pain (non specific , being worked up ) Aller/Immun Denies wheezing Physical Exam Vital Signs: Last Vital Signs Pulse 87 07/10/23 14:34 BP 130/80 07/10/23 14:34 Pulse Ox 96 07/10/23 14:34 Oxygen Delivery Method Room Air 07/10/23 14:34 BMI result Body Mass Index 33.9 Const Other: Anxious and, slightly short of breath during conversation. General: no acute distress, alert and awake Orientation/consciousness: patient oriented x3 HEENT Head: Yes normal to inspection General nose exam: No nasal polyps present and No nasal discharge present Face and sinus: Yes sinuses nontender Mouth: oropharynx normal Throat: Yes posterior oropharynx normal Eyes General: appearance normal, both eyes and all related structures Neck Neck: Yes normal visual inspection, Yes no lymphadenopathy, Yes trachea midline and Yes no JVD Thyroid: Thyroid normal Chest Chest palpation & inspection: normal inspection of the chest, normal palpation of entire chest wall and no tenderness Resp Other: Percussion note is resonant, breath sounds are distant especially over the basilar areas. No Wheezes or crepitations are heard today. Cardio Palpation: normal PMI Rate: regular rate Rhythm: regular rhythm Heart sounds: no gallops and no murmurs Peripheral pulses: Peripheral pulses 2+ throughout GI Palpation (GI): Soft to palpation, nontender, No hepatosplenomegaly present and no masses Auscultation: normal bowel sounds Back/Spine/Pelvis Thoracic/Lumbar Spine: thoracic and lumbar spine normal to inspection and thoraco-lumbar ROM limited Skin General skin exam: no rashes or lesions noted Neuro General: patient oriented x3 and no focal motor deficits Cranial nerves: Yes CN's II-XII intact bilaterally Extrem General: Yes normal to inspection, Yes no clubbing, cyanosis or edema and Yes no calf tenderness Psych Speech and movement: Normal speech and movement present Affect: Anxious affect present Office Procedures Spirometry Testing Spirometry Comments: Spirometry done in the office, Dr. Murphy has the results results scanned to her chart. 20966- Spirometry Results Reviewed Results Reviewed: SPIROMETRY 2021 TODAY 07/10/23 FVC = 66 % FEV1 72 % FEV1/FVC 86 FEF 25-75 102 Assessment & Plan Assessment & Plan (1) Allergic rhinitis: Comment: SHE HAS THE ONGOING MODERATE DEGREE OF ALLERGIC RHINITIS. IT GOT WORSE AFTER SHE STOPPED MONTELUKAST AND NOW OK AGAIN. Code(s): J30.9 - Allergic rhinitis, unspecified Category: Medical Plan: CONTINUE MONTELUKAST 10 MG DAILY .LORATADINE 10 MG ONCE A DAY ONLY P.R.N. (2) Ex-smoker: Comment: She has not smoked for the last 1 YEAR and is determined not to go back to smoking. Does not use nicotine patches at present Code(s): Z87.891 - Personal history of nicotine dependence Category: Social Hx Plan: COMMENDED FOR NOT SMOKING (3) COPD (chronic obstructive pulmonary disease): Comment: PFT 09/2018, Mild obstructive Airways disorder . SPIROMETRY IN 2021 SHOWED ONLY MODERATE DEGREE OF RESTRICTIVE PULMONARY DISORDER. BUT SHE HAS BEEN USING ADVAIR WELL INCRUSE ELLIPTA REGULARLY. SPIROMETRY TODAY SHOWS MILD RESTRICTIVE PULMONARY DISEASE AND NO EVIDENCE OF OBSTRUCTIVE AIRWAY DISORDER. SHE CLAIMS THAT SHE DEVELOPS SYMPTOMS OF ASTHMA WHEN SHE DOES NOT USE THE INHALERS. Code(s): J44.9 - Chronic obstructive pulmonary disease, unspecified Category: Medical Plan: I ADVISED HER TO KEEP ON USING WIXELA 250-51 INHALATION B.I.D. AND USE ALBUTEROL HFA 2 PUFFS Q.6 HOURS P.R.N. BUT SHE CAN STOP USING INCRUSE ELLIPTA (4) Restrictive lung disease: Comment: MILD TO MODERATE RESTRICTIVE LUNG DISORDER IS RELATED TO GROSS OBESITY Code(s): J98.4 - Other disorders of lung Category: Medical Plan: PATIENT IS ADVISED TO LOSE WEIGHT AND ALSO DO DEEP BREATHING EXERCISES 3 TIMES A DAY (5) Nocturnal hypoxemia: Comment: SHE HAS CHRONIC HYPOXEMIA HER RECENT OVERNIGHT OXIMETRY RECORDING DID CONFIRM PRESENCE OF NOCTURNAL HYPOXEMIA Code(s): G47.34 - Idiopathic sleep related nonobstructive alveolar hypoventilation Category: Medical Plan: SHE IS ADVISED TO USE O2 2 L/MINUTE AT NIGHT. AND USE O2 ONLY P.R.N. DURING THE DAYTIME Plan PRE-OP CLEARNACE : FROM PULMONARY POINT OF VIEW SHE IS CLEAR FOR THE SHOULDER SURGERY PLANNED. POSTOPERATIVELY MAY NEED USE OF IPRATROPIUM-ALBUTEROL UPDRAFT Q 4-6 HOURS P.R.N.. AND AT HOME SHE WILL CONTINUE TO USE HER REGULAR INHALERS. Orders: Orders AMB Spirometry Testing Today J44.9 - Chronic obstructive pulmonary disease, unspecified Coding Level of Care Code Est Pt Level 4 (16006) Diagnoses Allergic rhinitis J30.9 Ex-smoker Z87.891 COPD (chronic obstructive pulmonary disease) J44.9 Restrictive lung disease J98.4 Nocturnal hypoxemia G47.34 CPT Codes Spirometry - CPT: 75090- Spirometry ([id number])
== END 2023-07-10 15:11 | disposition home or self-care (01) ==
PROVIDERS: PCP Internal Medicine; Visit Provider Internal Medicine
DX: J30.9 Allergic rhinitis, unspecified (principal); Z87.891 Personal history of nicotine dependence; J44.9 Chronic obstructive pulmonary disease, unspecified; J98.4 Other disorders of lung; G47.34 Idiopathic sleep related nonobstructive alveolar hypoventilation
CPT/HCPCS: 94010; 99214

== ENCOUNTER → 2023-07-10 14:11 | Outpatient (BNVA) | payer OTHER, SELFPAY | PROVIDERS: PCP Internal Medicine; Visit Provider Internal Medicine | DX: J44.9 Chronic obstructive pulmonary disease, unspecified (principal); J98.4 Other disorders of lung; J30.9 Allergic rhinitis, unspecified; G47.34 Idiopathic sleep related nonobstructive alveolar hypoventilation; Z87.891 Personal history of nicotine dependence | CPT/HCPCS: 94010; 99212 ==

== ENCOUNTER 2023-07-20 09:17 | Outpatient (AMB) | payer OTHER, SELFPAY ==
[2023-07-20 09:31] VITALS: BP 130/80; PULSE 87; TEMP 36.6; O2SAT 96
--- NOTE | 2023-07-20 09:31 | AM.OFFWIN_ITS ---
Intake Vital Signs 07/20/23 09:31 Height 5 ft 5 in BP 130/80 Blood Pressure Location Rt brachial Position Sitting Pulse 87 Pulse Source Pulse Oximeter Temp 97.8 F Temp Source Oral Pulse Oximetry (%) 96 Oxygen Delivery Method Room Air Intake Visit Reasons: EP RT foot injury due to fall Intake Note: pt is here for right foot injury due to fall Patient Tobacco Use Status: Former Tobacco user Quit Date: 7 MONTHS AGO Allergies lamotrigine [From LAMICTAL] Allergy (Severe, Verified 07/20/23 09:31) RASH sumatriptan [From IMITREX] Allergy (Intermediate, Verified 07/20/23 09:31) RASH Do you need a note to return to daycare/school/sports/work: No HPI EP RT foot injury due to fall HPI Details Patient is a 57-year-old pain female who comes to the walk-in clinic complaining of pain to her right foot for a few weeks now, when she reports that her right leg gave out on her, and she rolled her ankle. She has since been having pain to the right foot, especially with ambulation. She has been icing and elevating it as able. She has not been evaluated for this, although she does have someone evaluating her for her low back, and reports that she had an MRI yesterday for this. No numbness or tingling or weakness reported to the right foot. [facility] Medical History Nocturnal hypoxemia Restrictive lung disease Respiratory failure with hypoxia Musculoskeletal pain Anxiety and depression Ex-smoker Allergic rhinitis Cataract Vitamin B12 deficiency Vitamin D insufficiency GERD (gastroesophageal reflux disease) ETOH abuse Migraine SUNSHINE on CPAP COPD (chronic obstructive pulmonary disease) Surgical History History of esophagogastroduodenoscopy (EGD) H/O colonoscopy S/P PRINCESS (total abdominal hysterectomy) History of total hysterectomy Family History Father Alcoholic Mother Diabetes mellitus HTN (hypertension) Mental health disorder Brother Substance use disorder Mental health disorder Brother Substance use disorder Daughter Mental health disorder Brother Substance use disorder Social History Household Members: Spouse Housing: House Do you presently have visiting nurse or other home services: No Alcohol intake: former Comment: refused alarm Patient Tobacco Use Status: Former Tobacco user Tobacco use type: Cigarette e-Cigarette/Vaping Use: Never Used Second Hand Smoke Exposure: No Substance Use Type: Crack/Cocaine Advance Directives Date on File: 02/28/22 service: No Current occupational status: disabled 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 No ecchymosis, and skin is good color warm and dry. Pedal pulses are intact, as well as posterior tibial. Good cap refill. Neuro intact. Positive antalgic gait with ambulation Results Reviewed Results Reviewed: Patient's plain film x-rays of the foot today show questionable nondisplaced fractures to the mid and distal 5th metatarsal on my wet read, which correlates with tenderness on exam, and with radiologist read Assessment & Plan Assessment & Plan (1) Right foot injury: Code(s): S99.921A - Unspecified injury of right foot, initial encounter Qualifiers: Encounter type: initial encounter Qualified Code(s): S99.921A - Unspecified injury of right foot, initial encounter Plan: Patient is a 57-year-old female who injured her right foot when she reports that her right leg gave out due to low back injury. She had an MRI of the low back yesterday, as she has episodes of pain and numbness to the right lower extremity. Is being monitored, however she has not been evaluated yet for the right foot. Plain film x-ray today show questionable nondisplaced fractures to the mid and distal 5th metatarsal on my wet read, which correlates with tenderness on exam, and with radiologist read. We discussed this, and I put her in a walking boot, which relieved her pain with ambulation. She was advised to follow-up with orthopedist for this, and referral was put in today. She already has a an appointment with [facility] for her left shoulder, so she was given the contact information to call them and make an appointment for her foot. She can continue [id number] anti-inflammatories as needed for the pain, and should elevate her foot and avoid ambulation if possible in the meantime. Orders: Orders XR foot RT min 3V Today M79.671 - Pain in right foot Referrals Orthopedics Referral M79.671 - Pain in right foot Coding Level of Care Code Est Pt Level 4 (77585) Diagnoses Injury of right foot, initial encounter S99.921A Encounter type: initial encounter
== END 2023-07-20 10:50 | disposition home or self-care (01) ==
PROVIDERS: PCP Internal Medicine; Visit Provider Physician Assistant Medical
DX: S99.921A Unspecified injury of right foot, initial encounter (principal)
CPT/HCPCS: 99214

== ENCOUNTER 2023-07-20 10:12 | Outpatient (REF) | payer OTHER, SELFPAY ==
--- NOTE | ~2023-07-20 | XR_ITS ---
EXAMINATION: XR FOOT, RIGHT CLINICAL INFORMATION: Pain base of fifth lateral edge COMPARISON: None available. TECHNIQUE: AP, lateral, and oblique views of the right foot. FINDINGS: Curvilinear lucencies along the mid and distal aspect of the fifth metatarsal diaphysis potentially representing vascular channels though nondisplaced fracture not definitively excluded. Correlation with point tenderness. Multi joint arthritic changes. Slight soft tissue prominence along the dorsum of the metatarsals. XR/XR foot RT min 3V IMPRESSION: 1. Curvilinear lucencies along the mid and distal aspect of the fifth metatarsal diaphysis potentially representing vascular channels though nondisplaced fracture not definitively excluded. Correlation with point tenderness. 2. Multi joint arthritic changes. 3. Slight soft tissue prominence along the dorsum of the metatarsals.
== END 2023-07-20 10:13 | disposition home or self-care (01) ==
LOC: HO.HMGCLDS 10:12
PROVIDERS: PCP Internal Medicine; Visit Provider Physician Assistant Medical
DX: M79.671 Pain in right foot (principal)
CPT/HCPCS: 73630

== ENCOUNTER 2023-07-25 10:56 | Outpatient (AMB) | payer OTHER, SELFPAY ==
--- NOTE | 2023-07-25 11:00 | A.OFFVIS_ITS ---
Vital Signs 07/25/23 11:06 Height 5 ft 5 in Weight 203 lb BMI 33.8 Handedness Left Intake Visit Reasons: Preop LT Shoulder /poss RTC 07/31/23 NE Intake Note: Annie is a 57 year old female who presents today for a pre op appointment for her LT Shoulder /poss RTC 07/31/23 NE. Allergies lamotrigine [From LAMICTAL] Allergy (Severe, Verified 07/25/23 11:02) RASH sumatriptan [From IMITREX] Allergy (Intermediate, Verified 07/25/23 11:02) RASH HPI HPI Preop LT Shoulder /poss RTC 07/31/23 NE: Details: 57-year-old right hand dominant female who presents in the office today for an evaluation of right foot pain. The patient presented to the [facility] on 07/20/2023 status post injuring her foot a few weeks prior to presentation. She states her right lower extremity gave out causing her to roll her right ankle. X-rays were obtained. She was placed in a walking boot. The patient was pending a left shoulder rotator cuff repair, but we are going to postpone this due to her most recent injury to the right ankle. [facility] Medical History Nocturnal hypoxemia Restrictive lung disease Respiratory failure with hypoxia Musculoskeletal pain Anxiety and depression Ex-smoker Allergic rhinitis Cataract Vitamin B12 deficiency Vitamin D insufficiency GERD (gastroesophageal reflux disease) ETOH abuse Migraine SUNSHINE on CPAP COPD (chronic obstructive pulmonary disease) Surgical History History of esophagogastroduodenoscopy (EGD) H/O colonoscopy S/P PRINCESS (total abdominal hysterectomy) History of total hysterectomy Family History Father Alcoholic Mother Diabetes mellitus HTN (hypertension) Mental health disorder Brother Substance use disorder Mental health disorder Brother Substance use disorder Daughter Mental health disorder Brother Substance use disorder Social History Household Members: Spouse Housing: House Do you presently have visiting nurse or other home services: No Alcohol intake: former Comment: refused alarm Patient Tobacco Use Status: Former Tobacco user Tobacco use type: Cigarette e-Cigarette/Vaping Use: Never Used Second Hand Smoke Exposure: No Substance Use Type: Crack/Cocaine Advance Directives Date on File: 02/28/22 service: No Current occupational status: disabled 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 Cognitive needs: No Hearing needs: No Vision needs: Yes Review of Systems Const All systems reviewed & are unremarkable except as noted in HPI and below Physical Exam Vital Signs: BMI result Body Mass Index 33.8 Const General: cooperative, healthy appearing, comfortable, no acute distress, well developed, alert and awake Orientation/consciousness: patient oriented x3 HEENT Head: Yes normal to inspection, Yes normocephalic and Yes atraumatic Eyes General: appearance normal, both eyes and all related structures Alignment and Position: alignment normal Conjunctivae: conjunctivae normal EOM: EOMs intact bilaterally Neck Neck: Yes normal visual inspection and Yes no lymphadenopathy Resp Other: No rerpiratory distress Effort & Inspection: normal respiratory effort and able to speak in complete sentences Cardio Other: Palpable radial pulse with no appreciable rythmic abnormalities Rate: regular rate Peripheral pulses: Peripheral pulses 2+ throughout GI Other: No abdominal distension Inspection: Yes normal to inspection Palpation (GI): Soft to palpation Back/Spine/Pelvis Cervical Spine: normal cervical lordosis and cervical ROM normal Skin General skin exam: no rashes or lesions noted Neuro General: patient oriented x3 Extrem Other: Right foot: Moderated edema along the lateral aspect of the right foot accompanied by extreme tenderness to palpation. Able to dorsiflex and plantarflex, pronate and supinate with pain. Sensation intact. Pedal pulse intact. Psych Mental Status: mental status grossly normal Office Procedures Fracture Care Fracture Billing Code: Fracture Billing Code Assessment & Plan Assessment & Plan (1) Rotator cuff tear, left: Code(s): M75.102 - Unspecified rotator cuff tear or rupture of left shoulder, not specified as traumatic Category: Medical (2) Fracture of metatarsal of right foot, closed: Comment: Fifth Code(s): S92.301A - Fracture of unspecified metatarsal bone(s), right foot, initial encounter for closed fracture Category: Medical Qualifiers: Encounter type: initial encounter Fracture alignment: nondisplaced Metatarsal bone: fifth Qualified Code(s): S92.354A - Nondisplaced fracture of fifth metatarsal bone, right foot, initial encounter for closed fracture Plan Ms. Pak is a 57-year-old right hand dominant female who presents in the office today for an evaluation of right foot pain. The patient presented to the [facility] on 07/20/2023 status post injuring her foot a few weeks prior to presentation. She states her right lower extremity gave out causing her to roll her right ankle. X-rays were obtained. She was placed in a walking boot. The patient was pending a left shoulder rotator cuff repair, but we are going to postpone this due to her most recent injury to the right ankle. The patient will remain in the boot at this time. I recommend the use of ice and OTC ibuprofen. The patient will stop to talking with the surgical instrument repair specialist before leaving today about rescheduling her surgery. Follow-up will be 3 weeks with repeat x-rays, or sooner if needed. X-rays of the right foot which were obtained while in the office today and were reviewed by me, Love Villa PA-C, revealed routine healing of a fifth metatarsal fracture of the right foot. X-rays of the right foot, obtained on 07/20/2023, revealed: 1. Curvilinear lucencies along the mid and distal aspect of the fifth metatarsal diaphysis potentially representing vascular channels though nondisplaced fracture not definitively excluded. Correlation with point tenderness. 2. Multi joint arthritic changes. 3. Slight soft tissue prominence along the dorsum of the metatarsals. Orders: Orders XR tibia fibula RT 2V Today M79.604 - Pain in right leg XR foot RT min 3V Today M79.673 - Pain in unspecified foot Patient Instructions: Scribed by Nadia Sousa medical care manager, for Love Villa PA-C on 07/25/2023 at 11:11 am, EST. Coding Level of Care Code Est Pt Level 4 (43551) Diagnoses Rotator cuff tear, left M75.102 Closed nondisplaced fracture of fifth metatarsal bone of right foot, initial encounter S92.354A Encounter type: initial encounter Fracture alignment: nondisplaced Metatarsal bone: fifth CPT Codes Fracture Care - Fracture Billing Code: Fracture Billing Code ([id number])
[2023-07-25 11:06] VITALS: BMI 33.8
== END 2023-07-25 15:26 | disposition home or self-care (01) ==
PROVIDERS: PCP Internal Medicine; Visit Provider Physician Assistant
DX: M75.102 Unspecified rotator cuff tear or rupture of left shoulder, not specified as traumatic (principal); S92.354A Nondisplaced fracture of fifth metatarsal bone, right foot, initial encounter for closed fracture
CPT/HCPCS: 99214

== ENCOUNTER 2023-07-25 10:56 | Outpatient (REF) | payer OTHER, SELFPAY ==
--- NOTE | ~2023-07-25 | XR_ITS ---
EXAMINATION: XR FOOT, RIGHT CLINICAL INFORMATION: Pain. COMPARISON: Radiographs dated 07/30/2023. TECHNIQUE: AP, lateral, and oblique views of the right foot. FINDINGS: Bony alignment and mineralization are normal. A hairline nondisplaced spiral type fracture is redemonstrated of the fifth metatarsal bone. No dislocation or right ankle joint effusion is seen. Boehler's angle is normal. There is a small plantar calcaneal spur. There is mild bunion formation of the first metatarsal head. No focal soft tissue swelling, gas or foreign body is seen. XR/XR foot RT min 3V IMPRESSION: 1. A nondisplaced hairline spiral-type fracture seen of the right fifth metatarsal shaft. Please correlate with clinical findings. 2. There is a small plantar calcaneal spur. 3. There is mild bunion formation.
--- NOTE | ~2023-07-25 | XR_ITS ---
EXAMINATION: XR TIBIA AND FIBULA, RIGHT CLINICAL INFORMATION: Pain. COMPARISON: Right knee radiographs dated 01/18/2022. TECHNIQUE: AP and lateral views of the right tibia and fibula were obtained. FINDINGS: Bony alignment and mineralization are normal. The lateral, medial and patellofemoral joint space compartments are well-maintained. No fracture, dislocation or joint effusion is seen. Again, there are loose bodies within the lateral joint space compartment. The largest of these measures 7 mm. No focal soft tissue swelling, gas or foreign body is seen. XR/XR tibia fibula RT 2V IMPRESSION: 1. No fracture or dislocation is seen. 2. Again, there are loose bodies within the lateral joint space compartment.
== END 2023-07-25 10:57 | disposition home or self-care (01) ==
LOC: HO.HOSX 10:56
PROVIDERS: PCP Internal Medicine; Visit Provider Physician Assistant
DX: M75.102 Unspecified rotator cuff tear or rupture of left shoulder, not specified as traumatic (principal); S92.354A Nondisplaced fracture of fifth metatarsal bone, right foot, initial encounter for closed fracture; X58.XXXA Exposure to other specified factors, initial encounter; Y93.9 Activity, unspecified; Y92.9 Unspecified place or not applicable; Y99.9 Unspecified external cause status
CPT/HCPCS: 73590; 73630; 99212

== ENCOUNTER 2023-07-29 12:35 | Outpatient (AMB) | payer OTHER, SELFPAY ==
[2023-07-29 12:39] VITALS: BP 118/64; PULSE 73; BMI 33.4
--- NOTE | 2023-07-29 12:39 | A.OFFVIS_ITS ---
Vital Signs 07/29/23 12:39 Height 5 ft 5 in Weight 200 lb 9.93 oz BMI 33.4 BP 118/64 Blood Pressure Location Lt brachial Position Sitting Pulse 73 Pulse Source Monitor Intake Visit Reasons: Follow up/Pre-op shoulder surgery 07/30 Dr. Pierre Allergies lamotrigine [From LAMICTAL] Allergy (Severe, Verified 07/25/23 11:02) RASH sumatriptan [From IMITREX] Allergy (Intermediate, Verified 07/25/23 11:02) RASH Medication List - Last Reconciled 07/29/23 by Darrel Cortez MD albuterol sulfate 90 mcg/actuation 2 puffs inhalation Q6H PRN alendronate (Fosamax) 70 mg PO QWEEK khxyxmigla-immamxnudcddv-zvho 50-325-40 mg 1 tab PO Q4H PRN celecoxib (Celebrex) 200 mg PO BID 30 days cholecalciferol (vitamin D3) 50 mcg PO DAILY clonazepam 1 mg PO BID fluticasone propionate 50 mcg/actuation 1 spray intranasal DAILY gabapentin 400 mg PO BEDTIME [Kneeling Scooter As directed] loratadine 10 mg PO DAILY PRN montelukast 10 mg PO DAILY pantoprazole 40 mg PO BID topiramate 100 mg PO BEDTIME HPI Comments Details: Annie returns for follow-up. Recently seen in consultation regarding chest pains. History of smoking, alcohol as well as drug use including cocaine. Last few months back. Otherwise, shortness of breath related to underlying COPD. Has oxygen for nighttime and sometimes as needed. Since last seen, she has undergone an echocardiogram and coronary CTA. She states she feels good. No cardiac symptoms states chest pains all resolved. Otherwise, she was supposed to go for shoulder surgery but had ankle issues and hence the surgery is postponed. [facility] Medical History Nocturnal hypoxemia Restrictive lung disease Respiratory failure with hypoxia Musculoskeletal pain Anxiety and depression Ex-smoker Allergic rhinitis Cataract Vitamin B12 deficiency Vitamin D insufficiency GERD (gastroesophageal reflux disease) ETOH abuse Migraine SUNSHINE on CPAP COPD (chronic obstructive pulmonary disease) Surgical History History of esophagogastroduodenoscopy (EGD) H/O colonoscopy S/P PRINCESS (total abdominal hysterectomy) History of total hysterectomy Family History Father Alcoholic Mother Diabetes mellitus HTN (hypertension) Mental health disorder Brother Substance use disorder Mental health disorder Brother Substance use disorder Daughter Mental health disorder Brother Substance use disorder Social History Household Members: Spouse Housing: House Do you presently have visiting nurse or other home services: No Alcohol intake: former Comment: refused alarm Patient Tobacco Use Status: Former Tobacco user Tobacco use type: Cigarette e-Cigarette/Vaping Use: Never Used Second Hand Smoke Exposure: No Substance Use Type: Crack/Cocaine Advance Directives Date on File: 02/28/22 service: No Current occupational status: disabled 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 [employer] Cognitive needs: No Hearing needs: No Vision needs: Yes Review of Systems Const Denies weakness ENT Denies dizziness Card Denies chest pain, Denies chest pain with activity, Denies syncope, Denies rapid heart rate, Denies pedal edema, Denies edema, Denies leg edema, Denies lightheadedness, Denies palpitations, Denies dyspnea, Denies dyspnea on exertion and Denies orthopnea Resp Denies cough, Denies dyspnea and Denies dyspnea on exertion GI Denies hematochezia and Denies change in stool character Musc Denies abnormal gait, Denies muscle cramps, Denies muscle weakness, Denies numbness, Denies radiating pain into limb and Denies tingling Neuro Denies abnormal gait, Denies dizziness, Denies syncope, Denies numbness, Denies tingling and Denies weakness Endo Denies palpitations Physical Exam Vital Signs: Last Vital Signs Pulse 73 07/29/23 12:39 BP 118/64 07/29/23 12:39 BMI result Body Mass Index 33.4 Const General: comfortable and no acute distress Orientation/consciousness: patient oriented x3 HEENT Other: Unremarkable Head: Yes normal to inspection Neck Neck: Yes normal visual inspection Chest Chest palpation & inspection: normal inspection of the chest Resp Auscultation: clear to auscultation bilaterally Cardio Palpation: normal PMI Heart sounds: S1 normal heart sound present, S2 normal heart sound present, no gallops, no murmurs and no rubs GI Palpation (GI): Soft to palpation Back/Spine/Pelvis Other: unremarkable Skin General skin exam: no rashes or lesions noted Neuro General: patient oriented x3 Extrem General: Yes normal to inspection Psych Mental Status: mental status grossly normal Office Procedures EKG Details: EKG with sinus rhythm at 73/Min; no significant ST-T changes and otherwise unremarkable. [place] [id number], Complete Assessment & Plan Assessment & Plan (1) Atherosclerotic cardiovascular disease: Code(s): I25.10 - Atherosclerotic heart disease of [place] coronary artery without angina pectoris Category: Medical (2) Preoperative cardiovascular examination: Code(s): Z01.810 - Encounter for preprocedural cardiovascular examination Category: Medical Plan Coronary CTA reviewed. Minimal stenosis in the ostial/proximal LAD and ostial circumflex from short segments of calcified plaque. Minimal plaque in the ascending/descending thoracic aorta. Suggestion of pulmonary hypertension based on dilated main pulmonary artery. Echocardiogram with LVEF of 60-65%, no significant valvular issues and otherwise unremarkable. Findings discussed with patient. As she has early stages of atherosclerosis, consider taking statins. She is agreeable. Try atorvastatin 10 mg daily. Follow-up lipids can be done with her own PCP. Abstain from smoking, alcohol excess, substance abuse. Absolutely no cocaine. Counseled. Otherwise, with regard to the shoulder surgery, may proceed. Low cardiac risk. Medications: New atorvastatin 10 mg PO QPM 90 tabs 1RF Coding Level of Care Code Est Pt Level 4 (15740) Diagnoses Atherosclerotic cardiovascular disease I25.10 Preoperative cardiovascular examination Z01.810 CPT Codes EKG - CPT: 53099-[id number], Complete ([id number])
== END 2023-07-29 12:58 | disposition home or self-care (01) ==
PROVIDERS: PCP Internal Medicine; Visit Provider Internal Medicine
DX: I25.10 Atherosclerotic heart disease of native coronary artery without angina pectoris (principal); Z01.810 Encounter for preprocedural cardiovascular examination
CPT/HCPCS: 93010; 99213; 99214

== ENCOUNTER → 2023-07-29 12:35 | Outpatient (BNVA) | payer OTHER, SELFPAY | PROVIDERS: PCP Internal Medicine; Visit Provider Internal Medicine | DX: Z01.810 Encounter for preprocedural cardiovascular examination (principal); I25.10 Atherosclerotic heart disease of native coronary artery without angina pectoris | CPT/HCPCS: 93005; 99212 ==

== ENCOUNTER 2023-07-31 11:01 | Outpatient (REF) | payer OTHER, SELFPAY ==
--- NOTE | ~2023-07-31 | XR_ITS ---
EXAMINATION: XR LUMBOSACRAL SPINE BENDING FILMS ONLY CLINICAL INFORMATION: Low back pain, assess for instability. COMPARISON: 02/22/2023 TECHNIQUE: 3 views of the lumbar spine including lateral neutral, upright flexion and extension views. FINDINGS: Facet arthritis in the lower spine. Multilevel lumbar spondylosis most notable at L5-S1 with loss of disc space height. Grade 1 anterolisthesis of L5 on S1 with flexion and extension. XR/XR lumbar spine bending only IMPRESSION: 1. Multilevel lumbar spondylosis most notable at L5-S1 with loss of disc space height. 2. Grade 1 anterolisthesis of L5 on S1 with flexion and extension.
== END 2023-07-31 11:02 | disposition home or self-care (01) ==
LOC: HO.HMGCX 11:01
PROVIDERS: PCP Internal Medicine; Visit Provider Student in an Organized Health Care Education/Training Program
DX: M43.10 Spondylolisthesis, site unspecified (principal); M54.16 Radiculopathy, lumbar region
CPT/HCPCS: 72120

== ENCOUNTER 2023-08-12 08:07 | Outpatient (AMB) | payer OTHER, SELFPAY ==
[2023-08-12 08:09] VITALS: BP 122/80; PULSE 80; TEMP 36.6; O2SAT 96; BMI 33.0
--- NOTE | 2023-08-12 08:09 | MHC.OFFWIV ---
Intake Vital Signs 08/12/23 08:09 Height 5 ft 5 in Weight 198 lb 6 oz BMI 33.0 BP 122/80 Blood Pressure Location Rt brachial Position Sitting Pulse 80 Pulse Source Pulse Oximeter Temp 97.8 F Temp Source Oral Pulse Oximetry (%) 96 Intake Visit Reasons: EP rash Intake Note: pt is here for rash all over body Patient Tobacco Use Status: Former Tobacco user Allergies lamotrigine [From LAMICTAL] Allergy (Severe, Verified 08/12/23 08:10) RASH sumatriptan [From IMITREX] Allergy (Intermediate, Verified 08/12/23 08:10) RASH Do you need a note to return to daycare/school/sports/work: No HPI HPI Comments History of Present Illness Details Patient is a 57-year-old female complaining of 3 days of itching on her left hand, left thigh, right lower abdomen and left upper abdomen. She states it is very itchy and there is little bubbles that seemed to be popping. She took Benadryl with relief but it knocked her out for a long time. She denies any fevers. She does admit to being in the [employer] picking [place] 3 days ago. [facility] Medical History Nocturnal hypoxemia Restrictive lung disease Respiratory failure with hypoxia Musculoskeletal pain Anxiety and depression Ex-smoker Allergic rhinitis Cataract Vitamin B12 deficiency Vitamin D insufficiency GERD (gastroesophageal reflux disease) ETOH abuse Migraine SUNSHINE on CPAP COPD (chronic obstructive pulmonary disease) Surgical History History of esophagogastroduodenoscopy (EGD) H/O colonoscopy S/P PRINCESS (total abdominal hysterectomy) History of total hysterectomy Family History Father Alcoholic Mother Diabetes mellitus HTN (hypertension) Mental health disorder Brother Substance use disorder Mental health disorder Brother Substance use disorder Daughter Mental health disorder Brother Substance use disorder Social History Household Members: Spouse Housing: House Do you presently have visiting nurse or other home services: No Alcohol intake: former Comment: refused alarm Patient Tobacco Use Status: Former Tobacco user Tobacco use type: Cigarette e-Cigarette/Vaping Use: Never Used Second Hand Smoke Exposure: No Substance Use Type: Crack/Cocaine Advance Directives Date on File: 02/28/22 service: No Current occupational status: disabled 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 Cognitive needs: No Hearing needs: No Vision needs: Yes Review of Systems Const All systems reviewed & are unremarkable except as noted in HPI and below Physical Exam Vital Signs: Last Vital Signs Temp 97.8 F 08/12/23 08:09 Pulse 80 08/12/23 08:09 BP 122/80 08/12/23 08:09 Pulse Ox 96 08/12/23 08:09 BMI result Body Mass Index 33.0 Const General: cooperative, healthy appearing, comfortable, no acute distress and well developed Orientation/consciousness: patient oriented x3 Limitations: no limitations Eyes General: appearance normal, both eyes and all related structures Resp Effort & Inspection: normal respiratory effort and able to speak in complete sentences Skin Other: small 0.5cm areas of crusted erythematous patches on left hand, right lower abdomen, left upper abdomen Neuro General: patient oriented x3 Assessment & Plan Assessment & Plan (1) Allergic dermatitis: Code(s): L23.9 - Allergic contact dermatitis, unspecified cause Plan: Likely poison genny based on physical exam and her story, sent hydroxyzene to pharmacy Plan see above Medications: New hydroxyzine HCl 10 mg PO QID 10 tabs 0RF Coding Level of Care Code Est Pt Level 3 (75295) Diagnoses Allergic dermatitis L23.9
--- OUTSIDE RECORDS SUMMARY | 2023-08-12 08:09 | XMS_ITS | Continuity of Care Document ---
Author Organization [facility] ter Address [address] [place] [id number] Care Team Providers Care Medical Reception Name Role Phone Sandi Andrade MD Primary Care Physician Encounter 07/19/23 - 07/20/[address] [id number] Attending Physician: Not on Staff, Attending MD Referring Physician: Not on Staff, Referring MD Allergies, Adverse Reactions, Alerts No Known Allergies Results Radiology Reports * Exam Date Time Procedure Performing Provider Status 07/19/23 4:01 PM MRI Lumbar Spine W/O Contrast Auth (Verified) Notes: (MRI Lumbar Spine W/O Contrast) Reason For Exam: RADICULOPATHY, LUMBAR REGION, , chronic right sided low back with radiation into the right lower extremity with associated p;RADICULOPATHY, LUMBAR REGION, , chronic right sided low back with radiation into the right lower extremity with associated p RESULT: MRI Lumbar Spine W/O Contrast [facility] VISIT NUMBER :[id number] Patient Name: Zoran Pak Date of : 1965 Date of Exam: 07-19-2023 Referring Physician: [facility] [address] [place] [id number] Exam: MR Lumbar Spine (C-) CPT 03725 Room Description: [facility] 3.0T HISTORY: Chronic right-sided back pain radiating down the right leg. COMPARISON: None. FINDINGS: ALIGNMENT, VERTEBRAE, MARROW, AND DISCS: There is 4 mm anterolisthesis of L5 on S1 with bilateral pars defects. Remaining alignment is normal. Vertebral body heights are preserved. There is mild disc space narrowing at L5-S1. Bone marrow signal is normal. CONUS: The visualized lower thoracic cord is normal in caliber and signal. The conus terminates at L1. PARASPINAL TISSUES: Retroperitoneal and posterior paraspinal soft tissues are unremarkable. DETAILED FINDINGS BY LEVEL: L1-L2: There is no significant canal or neural foraminal stenosis. L2-L3: There is no significant canal or neural foraminal stenosis. L3-L4: There is very minimal disc bulging and facet spurring without canal neural foraminal stenosis. L4-L5: There is minimal disc bulging, posterior ligamentous thickening, and facet spurring without significant canal stenosis. The neural foramen are patent. L5-S1: There is diffuse disc bulging/uncovering of disc due to anterolisthesis as well as bilateral facet spurring. However, there is no significant canal stenosis. There is mild to moderate right and moderate left neural foraminal stenosis. IMPRESSION: 1. Bilateral L5 spondylolysis with grade 1 anterolisthesis of L5 on S1. There is no significant canal stenosis or convincing nerve root impingement at any level. Electronically Signed By: Rosa Trujillo MD Dictated By: Not on Staff , LINDSAY SUN Dictated Date/Time: 07/20/23 4:08 pm Reviewed By: Not on Staff , LINDSAY SUN Signed By: Not on Staff , LINDSAY SUN Signed Date/Time: 07/20/23 4:08 pm Transcribed By: TS Transcribed Date/Time: 07/20/23 4:08 pm Patient Care team information Care Team Personnel Name: Sandi Andrade MD Position: S Physician - Primary Care Member Role: PCP Address: Address: [address] [place], [place] - Care Team Related Persons Name: ANGELICA PAK Address: home [address] [place] [address] [address] [place], [place] Name: LAWRENCE LAWTON Address: home [address] [place] [address]
== END 2023-08-12 09:15 | disposition home or self-care (01) ==
PROVIDERS: PCP Internal Medicine; Visit Provider Physician Assistant
DX: L23.9 Allergic contact dermatitis, unspecified cause (principal)
CPT/HCPCS: 99213

== ENCOUNTER 2023-08-20 10:43 | Outpatient (REF) | payer OTHER, SELFPAY ==
--- NOTE | ~2023-08-20 | XR_ITS ---
EXAMINATION: XR FOOT, RIGHT CLINICAL INFORMATION: Pain. COMPARISON: Most recent right foot radiographs dated 07/25/2023. TECHNIQUE: AP, lateral, and oblique views of the right foot. FINDINGS: Redemonstration of an oblique fracture through the fifth metatarsal diametaphysis with slightly increased displacement. There is significant interval new bone/callus formation when compared to the prior examination. No new fracture or dislocation. No joint space narrowing or marginal osteophytes. No osseous erosion. Plantar calcaneal spur. XR/XR foot RT min 3V IMPRESSION: 1. Fifth metatarsal fracture with slightly increased displacement and significant new bone/callus formation when compared to the prior examination. 2. Plantar calcaneal spur.
== END 2023-08-20 10:44 | disposition home or self-care (01) ==
LOC: HO.HOSX 10:43
PROVIDERS: PCP Internal Medicine; Visit Provider Physician Assistant
DX: Z01.818 Encounter for other preprocedural examination (principal); M79.671 Pain in right foot; M75.102 Unspecified rotator cuff tear or rupture of left shoulder, not specified as traumatic; S92.354D Nondisplaced fracture of fifth metatarsal bone, right foot, subsequent encounter for fracture with routine healing; X58.XXXD Exposure to other specified factors, subsequent encounter
CPT/HCPCS: 73630; 99212

== ENCOUNTER 2023-08-20 10:43 | Outpatient (AMB) | payer OTHER, SELFPAY ==
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
[2023-08-20 11:10] VITALS: BMI 32.9
== END 2023-08-20 11:41 | disposition home or self-care (01) ==
PROVIDERS: PCP Internal Medicine; Visit Provider Physician Assistant
DX: M75.102 Unspecified rotator cuff tear or rupture of left shoulder, not specified as traumatic (principal); S92.354A Nondisplaced fracture of fifth metatarsal bone, right foot, initial encounter for closed fracture
CPT/HCPCS: 99024

== ENCOUNTER 2023-09-04 10:19 | Day surgery (SDC) | payer OTHER, SELFPAY ==
[2023-09-02 08:18] VITALS: BMI 32.9
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
[2023-09-04] VITALS (7 sets, daily range): BP systolic 119–140; BP diastolic 70–78; PULSE 70–84; RESP 16–18; TEMP 36–36.8; O2SAT 92–96; BMI 33.6
--- OUTSIDE RECORDS SUMMARY | 2023-09-04 10:22 | XMS_ITS | Continuity of Care Document ---
Author Organization [facility] Address [address] [place] [id number]- Care Team Providers Care Greenhouse Manager Name Role Phone Sandi Andrade MD Primary Care Physician [phone] Encounter [facility] Date(s): 07/10/23 - 08/25/[address] [address]- Attending Physician: Sandi Andrade MD Admitting Physician: Sandi Andrade MD Referring Physician: Sandi Andrade MD Allergies, Adverse Reactions, Alerts No Known Allergies Patient Care team information Care Team Personnel Name: Sandi Andrade MD Position: [facility] Physician - Primary Care Member Role: PCP Address: Address: [address] [place], [place] - Care Team Related Persons Name: ANGELICA HUGHES Address: home [address] [place] [address] Name: LAWRENCE LAWTON Address: [place] [address]
[2023-09-04] MEDS: Albuterol Sulfate (0.083%) 2.5 MG/3 ML VIAL.NEB INHALE (10:57)
[2023-09-04] MEDS: Lactated Ringers 1,000 ML 100 ML IVCONT (10:57)
--- NOTE | 2023-09-04 11:10 | MHC.SHP ---
Pre-Procedural Eval Section A - 24 Hr Update-Section A only Date of Service: 09/04/23 The patient is an INPATIENT: No Changes since office visit: No Cold of Flu in the past 2 weeks, No New Medical Problems, No Changes in Medication and No Patient answered all questions The patient has been examined within 24 hours of the surgical procedure. The History & Physical has been completed within 30 days and I have reviewed it.: Yes Section B - Complete if H&P > 30 days Chief Complaint: Impingement syndrome of left shoulder Allergies: Allergies Allergy/AdvReac Type Severity Reaction Status Date / Time lamotrigine [From LAMICTAL] Allergy Severe RASH Verified 09/04/23 10:34 sumatriptan [From IMITREX] Allergy Intermediate RASH Verified 09/04/23 10:34 Plan I have reviewed the history and physical and performed a pertinent physical examination on my patient. No changes have occurred unless specified. Time Spent With Patient Time: Total time managing care of this patient today ____ minutes.
--- NOTE | 2023-09-04 13:02 | P.BOP_ITS ---
Brief Operative Note Date of Service: 09/04/23 Pre-op diagnosis: Left RTC tear Post-op diagnosis: other (Left SLAP tear left partial thickness rtc tear) Procedure: Left shoulder biceps tenotomy with circumferential labral debridement SAD Surgeon: Fidencio Pierre MD Anesthesia: GETA and regional Was an Membership Advisor used for this Procedure?: Yes Membership Advisor: Love Villa Estimated blood loss (mL): 5 IV fluids (mL): 500 Pathology: none sent Condition: stable Disposition: PACU
[2023-09-04] MEDS: ondansetron HCL 4 MG/2 ML VIAL IVPUSH (14:03)
--- NOTE | 2023-09-06 08:06 | W.PM.OPN ---
Operative Note Operative Note Date of Service: 09/04/23 Narrative: Date of Service: 09/04/23 Pre-op diagnosis: Left RTC tear Post-op diagnosis: other (Left SLAP tear left partial thickness rtc tear) Procedure: Left shoulder biceps tenotomy with circumferential labral debridement SILVINO Surgeon: Fidencio Pierre MD Anesthesia: GETA and regional Was an Motor Carrier Inspector used for this Procedure?: Yes Motor Carrier Inspector: Love Villa Estimated blood loss (mL): 5 IV fluids (mL): 500 Pathology: none sent Condition: stable Disposition: PACU Procedure in detail: Patient was brought to the operating room and placed the the beach chair position. All bony prominences were well padded and the limb was prepped and draped in standard sterile fashion. A time out was called to identify proper site, proper procedure and proper surgeon. IV antibiotics per weight were administered. I began by making a posterolateral stab incision with a 15 blade. A blunt trochar was placed into the glenohumeral joint and I insufflated the joint with saline and a 30 degree arthroscope was placed. I established an outside- in anterior portal just distal to the biceps tendon. I then began my inspection of the glenohumeral joint. There was a large degenerative SLAP tear at the biceps anchor ( Type 2). There were minimal cartilage changes at the inferior glenoid without humeral head changes. Both the superior labrum and the biceps were severely damaged and not repairable. I performed a biceps tenotomy with the cautery wand and debrided the labrum circumferentially down to stable edges. The subscapularis was intact. There was mild fraying in the undersurface of the RTC but it appeared intact and healthy. I then removed the trochar and entered the subacromial space. A direct lateral portal was then established and I performed a bursectomy. The cuff was then examined. There was a mild fraying of the cuff. There was nothing that required repair. A bursal debridement was performed and then a 5 mm anterior subacromial decompression was performed with an oval renaldo. The final images were captured and I removed all instrumentation. Portals were closed with nylon. Patient was placed in an abduction sling, extubated and brought to the recovery room in stable condition. There were no known complications.
== END 2023-09-04 14:39 | disposition home or self-care (01) ==
PROVIDERS: PCP Internal Medicine; Visit Provider Orthopaedic Surgery
PROC: (CPT 29805; principal; 2023-09-04 13:00)
DX: M75.112 Incomplete rotator cuff tear or rupture of left shoulder, not specified as traumatic (principal); M75.42 Impingement syndrome of left shoulder; S43.432A Superior glenoid labrum lesion of left shoulder, initial encounter; S92.354A Nondisplaced fracture of fifth metatarsal bone, right foot, initial encounter for closed fracture; W01.0XXA Fall on same level from slipping, tripping and stumbling without subsequent striking against object, initial encounter; Y93.9 Activity, unspecified; Y92.89 Other specified places as the place of occurrence of the external cause; Y99.8 Other external cause status; M81.0 Age-related osteoporosis without current pathological fracture; F41.8 Other specified anxiety disorders; J44.9 Chronic obstructive pulmonary disease, unspecified; J30.9 Allergic rhinitis, unspecified; I25.10 Atherosclerotic heart disease of native coronary artery without angina pectoris; I10 Essential (primary) hypertension; G47.33 Obstructive sleep apnea (adult) (pediatric); R09.02 Hypoxemia; R73.9 Hyperglycemia, unspecified; J98.4 Other disorders of lung; F10.10 Alcohol abuse, uncomplicated; F14.90 Cocaine use, unspecified, uncomplicated; K21.9 Gastro-esophageal reflux disease without esophagitis; Z79.51 Long term (current) use of inhaled steroids; Z79.899 Other long term (current) drug therapy; Z88.8 Allergy status to other drugs, medicaments and biological substances; Z99.81 Dependence on supplemental oxygen; Z87.891 Personal history of nicotine dependence; Z98.890 Other specified postprocedural states
CPT/HCPCS: 29823; 29826; J0131; J0171; J0665; J0690; J1100; J2250; J2405; J2704; J3010

== ENCOUNTER → 2023-09-04 10:19 | Outpatient (BNV) | payer OTHER, SELFPAY | PROVIDERS: PCP Internal Medicine; Visit Provider Orthopaedic Surgery | DX: S46.012A Strain of muscle(s) and tendon(s) of the rotator cuff of left shoulder, initial encounter (principal); S43.432A Superior glenoid labrum lesion of left shoulder, initial encounter | CPT/HCPCS: 29827 ==

== ENCOUNTER 2023-09-12 14:01 | Outpatient (AMB) | payer OTHER, SELFPAY ==
--- NOTE | 2023-09-12 14:05 | MHC.OFFVIS ---
Intake Visit Reasons: PO LT Shoulder /poss RTC 09/04/23 NE Intake Note: Annie is a 57 year old right hand dominant female who presents today for a post op appointment s/p LT Shoulder /poss RTC 09/04/23 NE. Patient reports still having pain and discomfort near the incision sites. Allergies lamotrigine [From LAMICTAL] Allergy (Severe, Verified 09/04/23 10:34) RASH sumatriptan [From IMITREX] Allergy (Intermediate, Verified 09/04/23 10:34) RASH HPI HPI PO LT Shoulder /poss RTC 09/04/23 NE: Details: 57-year-old right hand dominant female who presents in the office today 8 days status post left shoulder biceps tenotomy with circumferential labral debridement and SAD, which was performed on 09/04/[address] Pierre. ? ? While in the office today, the patient reports she is still having pain and discomfort near the incision sites.? PFSH Medical History Nocturnal hypoxemia Restrictive lung disease Respiratory failure with hypoxia Musculoskeletal pain Anxiety and depression Ex-smoker Allergic rhinitis Cataract Vitamin B12 deficiency Vitamin D insufficiency GERD (gastroesophageal reflux disease) ETOH abuse Migraine SUNSHINE on CPAP COPD (chronic obstructive pulmonary disease) Surgical History History of esophagogastroduodenoscopy (EGD) H/O colonoscopy S/P PRINCESS (total abdominal hysterectomy) History of total hysterectomy Family History Father Alcoholic Mother Diabetes mellitus HTN (hypertension) Mental health disorder Brother Substance use disorder Mental health disorder Brother Substance use disorder Daughter Mental health disorder Brother Substance use disorder Social History Household Members: Spouse Housing: House Do you presently have visiting nurse or other home services: No Alcohol intake: former Comment: all counts correct Patient Tobacco Use Status: Former Tobacco user Tobacco use type: Cigarette e-Cigarette/Vaping Use: Never Used Second Hand Smoke Exposure: No Substance Use Type: Crack/Cocaine Advance Directives Date on File: 02/28/22 service: No Current occupational status: disabled 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 Sutures are intact. No surrounding erythema or drainage. No signs of infection. Forward flexion and abduction to 45 degrees. External rotation to neutral. NVI.? Assessment & Plan Assessment & Plan (1) Rotator cuff tear, left: Code(s): M75.102 - Unspecified rotator cuff tear or rupture of left shoulder, not specified as traumatic Category: Medical Plan Ms. Pak is a 57-year-old right hand dominant female who presents in the office today 8 days status post left shoulder biceps tenotomy with circumferential labral debridement and SAD, which was performed on 09/04/[address] Pierre. ? ? While in the office today, the patient reports she is still having pain and discomfort near the incision sites.? ? Sutures were removed and steri-stripes were applied. She will begin to work with physical therapy. Follow-up will be in four weeks, or sooner if needed. ? Orders: Orders PT Evaluation and Treatment Today M25.512 - Pain in left shoulder Patient Instructions: Scribed by Nadia Sousa phlebotomist medical lab assistant, for Love Villa PA-C on 09/12/2023 at 2:04 pm, EST.? Coding Level of Care Code Global (72176) Diagnoses Rotator cuff tear, left M75.102
== END 2023-09-12 14:30 | disposition home or self-care (01) ==
PROVIDERS: PCP Internal Medicine; Visit Provider Physician Assistant
DX: M75.102 Unspecified rotator cuff tear or rupture of left shoulder, not specified as traumatic (principal)
CPT/HCPCS: 99024

== ENCOUNTER → 2023-09-12 14:01 | Outpatient (BNVA) | payer OTHER, SELFPAY | PROVIDERS: PCP Internal Medicine; Visit Provider Physician Assistant | DX: M75.102 Unspecified rotator cuff tear or rupture of left shoulder, not specified as traumatic (principal) | CPT/HCPCS: 99212 ==

== ENCOUNTER 2023-10-21 15:51 | Outpatient (AMB) | payer OTHER, SELFPAY ==
--- NOTE | 2023-10-21 16:18 | MHC.OFFVIS ---
Vital Signs 10/21/23 16:19 Height 5 ft 4 in Weight 209 lb 7.026 oz BMI 35.9 BP 110/70 Blood Pressure Location Lt brachial Position Sitting Pulse 88 Pulse Source Pulse Oximeter Pulse Oximetry (%) 95 Oxygen Delivery Method Room Air Intake Visit Reasons: COPD follow-up Intake Note: pt is here for follow up and states she is winded, congested. Strap Sewer Required: No Allergies lamotrigine [From LAMICTAL] Allergy (Severe, Verified 10/21/23 16:32) RASH sumatriptan [From IMITREX] Allergy (Intermediate, Verified 10/21/23 16:32) RASH Medication List - Last Reconciled 10/21/23 by Tremaine Murphy MD albuterol sulfate 90 mcg/actuation 2 puffs inhalation Q6H PRN alendronate (Fosamax) 70 mg PO QWEEK atorvastatin 10 mg PO QPM jiojdlsdic-bcfbocarkjcqs-eiza 50-325-40 mg 1 tab PO Q4H PRN celecoxib 200 mg PO BID cholecalciferol (vitamin D3) 50 mcg PO DAILY clonazepam 1 mg PO BID disposable gloves As directed-size medium fluticasone propion-salmeterol 250-50 mcg/dose (Wixela Inhub) 1 inh PO BID fluticasone propionate 50 mcg/actuation 1 spray intranasal DAILY gabapentin 400 mg PO BEDTIME hydroxyzine HCl 10 mg PO QID incontinence pad, liner, disp As directed (4 pks per month) [Kneeling Scooter As directed] loratadine 10 mg PO DAILY PRN montelukast 10 mg PO DAILY pantoprazole 40 mg PO BID topiramate 100 mg PO BEDTIME Do you need a note to return to daycare/school/sports/work: No HPI HPI COPD follow-up: Details: Annie is here for follow-up for her COPD. Breathing has been fairly stable though on some days she gets more congested and short of breath. Denies any cough expectoration or wheezes. She does not smoke cigarettes. She does wake 2 or 3 times a day to alleviate her stress. She has mild intermittent nasal congestion, for which she uses the Flonase She continues to use montelukast 10 mg daily . She has nocturnal hypoxemia and uses O2 2 L/minute at night. [facility] Medical History Nocturnal hypoxemia Restrictive lung disease Respiratory failure with hypoxia Musculoskeletal pain Anxiety and depression Ex-smoker Allergic rhinitis Cataract Vitamin B12 deficiency Vitamin D insufficiency GERD (gastroesophageal reflux disease) ETOH abuse Migraine SUNSHINE on CPAP COPD (chronic obstructive pulmonary disease) Surgical History History of esophagogastroduodenoscopy (EGD) H/O colonoscopy S/P PRINCESS (total abdominal hysterectomy) History of total hysterectomy Family History Father Alcoholic Mother Diabetes mellitus HTN (hypertension) Mental health disorder Brother Substance use disorder Mental health disorder Brother Substance use disorder Daughter Mental health disorder Brother Substance use disorder Social History Household Members: Spouse Housing: House Do you presently have visiting nurse or other home services: No Alcohol intake: former Comment: all counts correct Patient Tobacco Use Status: Former Tobacco user Tobacco use type: Cigarette e-Cigarette/Vaping Use: Never Used Second Hand Smoke Exposure: No Substance Use Type: Crack/Cocaine Advance Directives Date on File: 02/28/22 service: No Current occupational status: disabled 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 Cognitive needs: No Hearing needs: No Vision needs: Yes Review of Systems Const All systems reviewed & are unremarkable except as noted in HPI and below Eyes Reports no additional complaints ENT Reports nasal congestion (mild off and on ) Card Reports chest pain, Denies irregular heart rhythm, Denies leg edema and Reports dyspnea on exertion Resp Reports cough (mild off and on .), Reports dyspnea on exertion and Denies wheezing GI Reports abdominal pain (non specific , being worked up ) Aller/Immun Denies wheezing Physical Exam Vital Signs: Last Vital Signs Pulse 88 10/21/23 16:19 BP 110/70 10/21/23 16:19 Pulse Ox 95 10/21/23 16:19 Oxygen Delivery Method Room Air 10/21/23 16:19 BMI result Body Mass Index 35.9 Const Other: Anxious and, slightly short of breath during conversation. General: no acute distress, alert and awake Orientation/consciousness: patient oriented x3 HEENT Head: Yes normal to inspection General nose exam: No nasal polyps present and No nasal discharge present Face and sinus: Yes sinuses nontender Mouth: oropharynx normal Throat: Yes posterior oropharynx normal Eyes General: appearance normal, both eyes and all related structures Neck Neck: Yes normal visual inspection, Yes no lymphadenopathy, Yes trachea midline and Yes no JVD Thyroid: Thyroid normal Chest Chest palpation & inspection: normal inspection of the chest, normal palpation of entire chest wall and no tenderness Resp Other: Percussion note is resonant, breath sounds are distant especially over the basilar areas. No Wheezes or crepitations are heard today. Cardio Palpation: normal PMI Rate: regular rate Rhythm: regular rhythm Heart sounds: no gallops and no murmurs Peripheral pulses: Peripheral pulses 2+ throughout GI Palpation (GI): Soft to palpation, nontender, No hepatosplenomegaly present and no masses Auscultation: normal bowel sounds Back/Spine/Pelvis Thoracic/Lumbar Spine: thoracic and lumbar spine normal to inspection and thoraco-lumbar ROM limited Skin General skin exam: no rashes or lesions noted Neuro General: patient oriented x3 and no focal motor deficits Cranial nerves: Yes CN's II-XII intact bilaterally Extrem General: Yes normal to inspection, Yes no clubbing, cyanosis or edema and Yes no calf tenderness Psych Speech and movement: Normal speech and movement present Affect: Anxious affect present Assessment & Plan Assessment & Plan (1) COPD (chronic obstructive pulmonary disease): Comment: PFT 09/2018, Mild obstructive Airways disorder . SPIROMETRY IN 2021 SHOWED ONLY MODERATE DEGREE OF RESTRICTIVE PULMONARY DISORDER. BUT SHE HAS BEEN USING ADVAIR WELL INCRUSE ELLIPTA REGULARLY. SPIROMETRY TODAY SHOWS MILD RESTRICTIVE PULMONARY DISEASE AND NO EVIDENCE OF OBSTRUCTIVE AIRWAY DISORDER. SHE CLAIMS THAT SHE DEVELOPS SYMPTOMS OF ASTHMA WHEN SHE DOES NOT USE THE INHALERS. Code(s): J44.9 - Chronic obstructive pulmonary disease, unspecified Category: Medical Plan: Continue using fluticasone/salmeterol 250-51 inhalation b.i.d. Use albuterol HFA 2 puffs Q 6 hours only p.r.n.. (2) Allergic rhinitis: Comment: SHE HAS THE ONGOING MODERATE DEGREE OF ALLERGIC RHINITIS. IT GOT WORSE AFTER SHE STOPPED MONTELUKAST AND NOW OK AGAIN. Code(s): J30.9 - Allergic rhinitis, unspecified Category: Medical Plan: Continue montelukast 10 mg daily Flonase-52 spray in each nostril daily. Loratadine 10 mg once a day p.r.n. (3) Ex-smoker: Comment: She has not smoked for the last 2 YEAR and is determined not to go back to smoking. Does not use nicotine patches at present She does vape 2 to 3 times a day, because of stress. Code(s): Z87.891 - Personal history of nicotine dependence Category: Social Hx Plan: Commended for not smoking. Also cautioned against vaping electronic cigarettes. (4) Nocturnal hypoxemia: Comment: SHE HAS CHRONIC HYPOXEMIA HER RECENT OVERNIGHT OXIMETRY RECORDING DID CONFIRM PRESENCE OF NOCTURNAL HYPOXEMIA Code(s): G47.34 - Idiopathic sleep related nonobstructive alveolar hypoventilation Category: Medical Plan: Use O2 2 L/minute at night (5) Restrictive lung disease: Comment: MILD TO MODERATE RESTRICTIVE LUNG DISORDER IS RELATED TO GROSS OBESITY Code(s): J98.4 - Other disorders of lung Category: Medical Plan: She needs to lose weight. Do deep breathing exercises 3 times a day. Coding Level of Care Code Est Pt Level 4 (83387) Diagnoses COPD (chronic obstructive pulmonary disease) J44.9 Allergic rhinitis J30.9 Ex-smoker Z87.891 Nocturnal hypoxemia G47.34 Restrictive lung disease J98.4
[2023-10-21 16:19] VITALS: BP 110/70; PULSE 88; O2SAT 95; BMI 35.9
== END 2023-10-21 16:39 | disposition home or self-care (01) ==
PROVIDERS: PCP Internal Medicine; Visit Provider Internal Medicine
DX: J44.9 Chronic obstructive pulmonary disease, unspecified (principal); J30.9 Allergic rhinitis, unspecified; Z87.891 Personal history of nicotine dependence; G47.34 Idiopathic sleep related nonobstructive alveolar hypoventilation; J98.4 Other disorders of lung
CPT/HCPCS: 99214

== ENCOUNTER → 2023-10-21 15:51 | Outpatient (BNVA) | payer OTHER, SELFPAY | PROVIDERS: PCP Internal Medicine; Visit Provider Internal Medicine | DX: J44.9 Chronic obstructive pulmonary disease, unspecified (principal); J30.9 Allergic rhinitis, unspecified; J98.4 Other disorders of lung; G47.34 Idiopathic sleep related nonobstructive alveolar hypoventilation; R09.02 Hypoxemia; Z99.81 Dependence on supplemental oxygen; Z87.891 Personal history of nicotine dependence; Z79.899 Other long term (current) drug therapy | CPT/HCPCS: 99212 ==

== ENCOUNTER 2023-10-29 12:14 | Outpatient (AMB) | payer OTHER, SELFPAY ==
--- NOTE | 2023-10-29 12:24 | MHC.OFFVIS ---
Intake Visit Reasons: PO - LT Shoulder 09/04/23 NE Intake Note: Annie is a 57 year old right hand dominant female who presents today for a post op appointment s/p LT Shoulder 09/04/23 NE. Patient reports she is feel sore from coming from physical therapy. She mentions that she is unsure if she is getting better or worse, she still continuing to have pain. Allergies lamotrigine [From LAMICTAL] Allergy (Severe, Verified 10/29/23 12:35) RASH sumatriptan [From IMITREX] Allergy (Intermediate, Verified 10/29/23 12:35) RASH HPI HPI PO - LT Shoulder 09/04/23 NE: Details: 57-year-old right hand dominant female who presents in the office today 2 months status post left shoulder biceps tenotomy with circumferential labral debridement and SAD, which was performed on 09/04/[address] Pierre. I last saw the patient in the office on 09/12/23 when she was referred to physical therapy. ? ? While in the office today, the patient reports she feels sore from PT. She is unsure if she is getting better or worse due to her continuing to have pain. ? PFSH Medical History Nocturnal hypoxemia Restrictive lung disease Respiratory failure with hypoxia Musculoskeletal pain Anxiety and depression Ex-smoker Allergic rhinitis Cataract Vitamin B12 deficiency Vitamin D insufficiency GERD (gastroesophageal reflux disease) ETOH abuse Migraine SUNSHINE on CPAP COPD (chronic obstructive pulmonary disease) Surgical History History of esophagogastroduodenoscopy (EGD) H/O colonoscopy S/P PRINCESS (total abdominal hysterectomy) History of total hysterectomy Family History Father Alcoholic Mother Diabetes mellitus HTN (hypertension) Mental health disorder Brother Substance use disorder Mental health disorder Brother Substance use disorder Daughter Mental health disorder Brother Substance use disorder Social History Household Members: Spouse Housing: House Do you presently have visiting nurse or other home services: No Alcohol intake: former Comment: all counts correct Patient Tobacco Use Status: Former Tobacco user Tobacco use type: Cigarette e-Cigarette/Vaping Use: Never Used Second Hand Smoke Exposure: No Substance Use Type: Crack/Cocaine Advance Directives Date on File: 02/28/22 service: No Current occupational status: disabled 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 No surrounding erythema or drainage. No signs of infection. Forward flexion and abduction to 85 degrees. External rotation to neutral. Able to reach back pocket. NVI. Assessment & Plan Assessment & Plan (1) Rotator cuff tear, left: Code(s): M75.102 - Unspecified rotator cuff tear or rupture of left shoulder, not specified as traumatic Category: Medical Plan Ms. Pak is a 57-year-old right hand dominant female who presents in the office today 2 months status post left shoulder biceps tenotomy with circumferential labral debridement and SAD, which was performed on 09/04/[address] Pierre. I last saw the patient in the office on 09/12/23 when she was referred to physical therapy. ? ? While in the office today, the patient reports she feels sore from PT. She is unsure if she is getting better or worse due to her continuing to have pain.? ? We discussed the importance of attending physical therapy which she will continue to attend. She will also work on the home exercise program. Follow-up will be in six weeks with Dr. Pierre, as he has not seen her postoperatively yet, or sooner if needed.? Patient Instructions: Scribed by Nadia Sousa medical insurance claims processor, for Love Villa PA-C on 10/29/2023 at 12:37 pm, EST.? Coding Level of Care Code Global (99161) Diagnoses Rotator cuff tear, left M75.102
== END 2023-10-29 12:45 | disposition home or self-care (01) ==
PROVIDERS: PCP Internal Medicine; Visit Provider Physician Assistant
DX: M75.102 Unspecified rotator cuff tear or rupture of left shoulder, not specified as traumatic (principal)
CPT/HCPCS: 99024

== ENCOUNTER → 2023-10-29 12:14 | Outpatient (BNVA) | payer OTHER, SELFPAY | PROVIDERS: PCP Internal Medicine; Visit Provider Physician Assistant | DX: M75.102 Unspecified rotator cuff tear or rupture of left shoulder, not specified as traumatic (principal) | CPT/HCPCS: 99212 ==

== ENCOUNTER 2023-11-01 11:02 | Outpatient (REF) | payer OTHER, SELFPAY ==
--- NOTE | ~2023-11-01 | XR_ITS ---
EXAMINATION: XR WRIST, LEFT CLINICAL INFORMATION: M25.532 - Pain in left wrist COMPARISON: None available. TECHNIQUE: PA, lateral, oblique, and scaphoid views of the left wrist. FINDINGS: No fracture, dislocation, or suspicious bone lesion. Normal bone mineralization. Carpal bones intact and normally aligned. Moderate osteoarthrosis present at the first CMC joint and STT joints. There is mild marginal productive spurring and subchondral sclerosis with moderate joint space loss. Remainder the imaged soft tissues and bones of the hand and wrist have a normal appearance. XR/XR wrist LT w scaphoid IMPRESSION: 1. No acute bony abnormalities left wrist. 2. Moderate osteoarthrosis present focally at the first CMC joint and STT joints. Electronically signed by: Arvind Lew MD 01/12/2024 09:49 PM HANG
== END 2023-11-01 11:03 | disposition home or self-care (01) ==
LOC: HO.HOSX 11:02
PROVIDERS: PCP Internal Medicine
DX: M25.532 Pain in left wrist (principal); M79.641 Pain in right hand; M79.642 Pain in left hand; R20.0 Anesthesia of skin; R20.2 Paresthesia of skin
CPT/HCPCS: 73110; 99212

== ENCOUNTER → 2023-11-01 11:05 | Outpatient (BNV) | payer OTHER, SELFPAY | PROVIDERS: PCP Internal Medicine; Visit Provider Radiology Diagnostic Radiology | DX: M18.12 Unilateral primary osteoarthritis of first carpometacarpal joint, left hand (principal) | CPT/HCPCS: 73110 ==

== ENCOUNTER 2023-11-01 11:23 | Outpatient (AMB) | payer OTHER, SELFPAY ==
--- NOTE | 2023-11-01 11:25 | A.OFFVIS_ITS ---
Vital Signs 11/01/23 11:26 Height 5 ft 4 in Weight 199 lb BMI 34.2 Handedness Right Intake Visit Reasons: NewProb-Left hand/wrist pain Intake Note: Annie is a 57 year old right hand dominant female who presents today for a new problem visit with complaints of left wrist and hand pain. Patient reports it got worse s/p Left shoulder biceps tenotomy with circumferential labral debridement on 09/04/2023 w/ Dr Pierre. She says her left wrist hurts all the time and if she holds her wrist and applies pressure it is not as severe. She finds mild relief with her wrist braces. Holding objects for a long period of time causes her hand to go numb. She wakes up in the middle of the night with pins and needles in her B/L hands and digits so she starts to close and open her hand repeatedly to try and wake it up. She has hx of basal joint injection in her left thumb. She does not notice a differnece when she takes Tylenol and ibuprofen for relief. Allergies lamotrigine [From LAMICTAL] Allergy (Severe, Verified 11/01/23 11:32) RASH sumatriptan [From IMITREX] Allergy (Intermediate, Verified 11/01/23 11:32) RASH HPI Comments Details: Patient is a 57-year-old female who presents for evaluation of bilateral hand pain, numbness, tingling, ongoing since beginning physical therapy after labral debridement with Dr. Pierre on 09/04/2023. The patient states that at this time, she began to experience significant discomfort in her bilateral wrists, and also began to notice that she was developing numbness when holding objects for prolonged periods of time, as well as waking up in the middle of the night to ?shake out? her bilateral hands to regain sensation. Reports that this pain, numbness, and tingling has led to significant impediment in her activities of daily living. No other acute complaints or concerns at this time. FORMERLY [facility], [facility] Medical History Nocturnal hypoxemia Restrictive lung disease Respiratory failure with hypoxia Musculoskeletal pain Anxiety and depression Ex-smoker Allergic rhinitis Cataract Vitamin B12 deficiency Vitamin D insufficiency GERD (gastroesophageal reflux disease) ETOH abuse Migraine SUNSHINE on CPAP COPD (chronic obstructive pulmonary disease) Surgical History History of esophagogastroduodenoscopy (EGD) H/O colonoscopy S/P PRINCESS (total abdominal hysterectomy) History of total hysterectomy Family History Father Alcoholic Mother Diabetes mellitus HTN (hypertension) Mental health disorder Brother Substance use disorder Mental health disorder Brother Substance use disorder Daughter Mental health disorder Brother Substance use disorder Social History Household Members: Spouse Housing: House Do you presently have visiting nurse or other home services: No Alcohol intake: former Comment: all counts correct Patient Tobacco Use Status: Former Tobacco user Tobacco use type: Cigarette e-Cigarette/Vaping Use: Never Used Second Hand Smoke Exposure: No Substance Use Type: Crack/Cocaine Advance Directives Date on File: 02/28/22 service: No Current occupational status: disabled 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 Good APB muscle firing and good finger cross. Vascular: Capillary refill brisk. ROM: Patient can make a fist and extend all their digits. Skin: No lacerations or abrasions noted. General: No ecchymosis. No erythema or evidence of infection. Assessment & Plan Assessment & Plan (1) Bilateral hand pain: Code(s): M79.641 - Pain in right hand; M79.642 - Pain in left hand Category: Medical (2) Numbness and tingling in both hands: Code(s): R20.0 - Anesthesia of skin; R20.2 - Paresthesia of skin Category: Medical Plan 1. Bilateral hand pain, numbness, tingling Symptoms intermittent, but daily, worse at night At this time, patient is referred for EMG and nerve conduction study of bilateral upper extremities to assess the health of the nerves of these extrem ities Patient will follow-up with me after EMG and nerve conduction study for results review and discussion of further treatment options if indicated at that time Patient is amenable to this plan Patient will follow-up after nerve conduction study for repeat assessment, sooner with any acute concerns Orders: Orders XR wrist LT w scaphoid 11/01/23 M25.532 - Pain in left wrist NE electromyogram (EMG) 11/01/23 R20.0 - Anesthesia of skin, R20.2 - Paresthesia of skin NE nerve conduction velocity 11/01/23 R20.0 - Anesthesia of skin, R20.2 - Paresthesia of skin Coding Level of Care Code Est Pt Level 3 (12548) Diagnoses Bilateral hand pain M79.641; M79.642 Numbness and tingling in both hands R20.0; R20.2
[2023-11-01 11:26] VITALS: BMI 34.2
== END 2023-11-01 11:51 | disposition home or self-care (01) ==
PROVIDERS: PCP Internal Medicine
DX: M79.641 Pain in right hand (principal); M79.642 Pain in left hand; R20.0 Anesthesia of skin; R20.2 Paresthesia of skin
CPT/HCPCS: 99213

== ENCOUNTER 2023-11-11 11:00 | Outpatient (RCR) | payer OTHER, SELFPAY ==
--- NOTE | 2023-09-25 13:37 | MHC.PT.EP ---
[facility] [place] Office [place] Office [place] Office [address] [place] [address] [phone] F: [phone] F: [phone] F: [phone] F: [phone] Physical Therapy Plan of Care Date of Evaluation: 09/25/23 Date of Surgery: 09/04/2023 Diagnosis: s/p SAD labral decompression, bicep tenotomy Assessment: Patient is a 57 year old female presenting to PT s/p L SAD labral decompression and bicep tenotomy on 09/04/2023. She presents today with impairments in pain, ROM, strength, posture. 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 Clinical presentation today is most consistent with signs and sx associated with s/p L SAD labral decompression and bicep tenotomy and pt will benefit from skilled PT 2 week x 4 weeks to address the following problems and impairments noted upon evaluation: pain, ROM, strength, posture. These problems limit the patient with the following functional activities: reaching, lifting, ADLs, household duties. The prescribed treatment plan of care is medically necessary. Co-morbidities of COPD were identified and taken into considerations of plan of care. Pt was educated on HEP, role of PT, prognosis, POC. Frequency and Duration: The patient will be seen 2 x week x 4 weeks Short Term Goals: Pt will demonstrate symmetrical ROM in 2 weeks. Pt will demonstrate L shoulder MMT at least 3/5 in 2 weeks. Fpc Goals: Pt will demonstrate improved SPADI score by 13 points in 4 weeks for improved functional mobility. Pt will demonstrate improved L shoulder MMT strength to at least 4/5 in 4 weeks for improved ability to lift and complete ADLs and experiential therapist. Pt will demonstrate ability to reach with min to no pain or limitation in 4 weeks for return to PLOF. Treatment Plan: Modalities to reduce pain, spasms and effusion. Manual therapy to restore motion and function. Therapeutic exercise to improve strength and flexibility. Neuromuscular re-education for posture and balance. Therapeutic activities to return to functional activities of daily living. Electronically signed by: Eliana Calderon, PT, DPT, ATC Please sign and return to therapist. Thank you for your referral.
--- NOTE | 2023-11-11 12:04 | MHC.PT.DC ---
[facility] [place] Office [place] Office [place] Office [address] [place] [address] [facility] [phone] F: [phone] F: [phone] F: [phone] F: [phone] Physical Therapy Discharge Report Diagnosis: s/p SAD labral decompression, bicep tenotomy Date of Surgery: 09/04/2023 Date of Evaluation: 09/25/23 Date of Discharge: 11/11/23 Treatments to Date: 7 Cancellations to Date: 7 No Shows to Date: 0 Discharge Status: Patient Elected to Stop Discharge Summary: 11/11/2023: Pt stating she is able to do more and is happy about this. She has no visits left and states she thinks she is ready for today to be her last day. Therefore pt will be d/c per her request. She does still have some limitations as outlined as above and I encouraged her to continue with her HEP to continue making gains and she is understanding of this. Electronically signed by: Eliana Calderon, PT, DPT, ATC Please sign and return to therapist. Thank you for your referral.
== END 2023-11-11 12:05 | disposition home or self-care (01) ==
LOC: HO.PTCHIC 11:00
PROVIDERS: PCP Internal Medicine; Visit Provider Physician Assistant
DX: M25.512 Pain in left shoulder (principal); Z98.890 Other specified postprocedural states
CPT/HCPCS: 97110; 97161

== ENCOUNTER 2023-11-22 08:37 | Outpatient (AMB) | payer OTHER, SELFPAY ==
[2023-11-22 08:46] VITALS: BP 122/80; PULSE 89; TEMP 36.7; O2SAT 96; BMI 36.4
--- NOTE | 2023-11-22 08:46 | AM.OFFWIN_ITS ---
Intake Vital Signs 11/22/23 08:46 Height 5 ft 4 in Weight 212 lb BMI 36.4 BP 122/80 Blood Pressure Location Rt brachial Position Sitting Pulse 89 Pulse Source Pulse Oximeter Temp 98.1 F Temp Source Oral Pulse Oximetry (%) 96 Oxygen Delivery Method Room Air Intake Visit Reasons: EP cough, head congestion, bump in back of head Intake Note: Patient here for cough, congestion for about 1 week. Patient Tobacco Use Status: Former Tobacco user Allergies lamotrigine [From LAMICTAL] Allergy (Severe, Verified 11/22/23 08:48) RASH sumatriptan [From IMITREX] Allergy (Intermediate, Verified 11/22/23 08:48) RASH Do you need a note to return to daycare/school/sports/work: No HPI HPI Comments History of Present Illness Details This is a 58-year-old female who presented to the walk-in clinic complaining of chest/sinus congestion, productive cough of green-yellow sputum, and fatigue for the past 3 weeks. She states she was seen by her neurologist who thought she likely just had a viral infection or seasonal allergies and recommended continuing symptomatic management. Patient states she has been trying symptomatic management with inhalers, nasal spray, and antihistamines but her symptoms have been worsening. She also noticed a bump behind her left ear, which her neurologist thought might have been a swollen lymph node. She denies any associated fevers or chills. She denies any chest pain. [facility] Medical History Nocturnal hypoxemia Restrictive lung disease Respiratory failure with hypoxia Musculoskeletal pain Anxiety and depression Ex-smoker Allergic rhinitis Cataract Vitamin B12 deficiency Vitamin D insufficiency GERD (gastroesophageal reflux disease) ETOH abuse Migraine SUNSHINE on CPAP COPD (chronic obstructive pulmonary disease) Surgical History History of esophagogastroduodenoscopy (EGD) H/O colonoscopy S/P PRINCESS (total abdominal hysterectomy) History of total hysterectomy Family History Father Alcoholic Mother Diabetes mellitus HTN (hypertension) Mental health disorder Brother Substance use disorder Mental health disorder Brother Substance use disorder Daughter Mental health disorder Brother Substance use disorder Social History Household Members: Spouse Housing: House Do you presently have visiting nurse or other home services: No Alcohol intake: former Comment: all counts correct Patient Tobacco Use Status: Former Tobacco user Tobacco use type: Cigarette e-Cigarette/Vaping Use: Never Used Second Hand Smoke Exposure: No Substance Use Type: Crack/Cocaine Advance Directives Date on File: 02/28/22 service: No Current occupational status: disabled 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 Cognitive needs: No Hearing needs: No Vision needs: Yes Review of Systems Const All systems reviewed & are unremarkable except as noted in HPI and below Reports no additional complaints Eyes Reports no additional complaints ENT Reports no additional complaints Card Reports no additional complaints Resp Reports no additional complaints GI Reports no additional complaints Reports no additional complaints Musc Reports no additional complaints Skin/Breast Reports system reviewed and no additional complaints, except as documented Neuro Reports no additional complaints Psych Reports no additional complaints Endo Reports no additional complaints Emanuel/Lymph Reports no additional complaints Aller/Immun Reports no additional complaints Physical Exam Vital Signs: Last Vital Signs Temp 98.1 F 11/22/23 08:46 Pulse 89 11/22/23 08:46 BP 122/80 11/22/23 08:46 Pulse Ox 96 11/22/23 08:46 Oxygen Delivery Method Room Air 11/22/23 08:46 BMI result Body Mass Index 36.4 Const Other: Vital signs reviewed. Constitutional: Non-toxic appearing. No acute distress. Well-developed and well-nourished. HEENT: Normocephalic and atraumatic. Tympanic membranes without erythema, edema, or bulging bilaterally. External auditory canals without erythema or edema bilaterally. Moist mucous membranes. No pharyngeal erythema or exudates. Skin: Warm and dry. No rashes or lesions noted. Neck: Full and painless range of motion. No cervical lymphadenopathy. There is a swollen left-sided post-auricular lymph node. Cardio: Regular rate and rhythm. No murmurs, gallops, or rubs. No lower extremity edema. No JVD. Pulmonary: No acute respiratory distress. No accessory muscle usage. Clear to auscultation bilaterally without wheezing, crackles, or rhonchi. Gastrointestinal: Soft, nontender, and nondistended in all 4 quadrants. Normoactive bowel sounds in all 4 quadrants. Musculoskeletal: Normal range of motion in joints throughout the body. No deformity or other signs of injury. Neuro: Alert and oriented x4. Cranial nerves 2-12 grossly intact. No focal deficits appreciated. Psych: Normal mood and affect. Assessment & Plan Assessment & Plan (1) Acute lower respiratory tract infection: Code(s): J22 - Unspecified acute lower respiratory infection Plan: This is a 58-year-old female who presented to the walk-in clinic complaining of chest/sinus congestion, productive cough, and fatigue for the past 3 weeks. History and physical appear most consistent with an acute lower respiratory tract infection versus atypical/walking pneumonia. A chest x-ray was obtained and reviewed and appeared negative for any acute cardiopulmonary process. This was discussed with the patient in office. Patient was sent home with p.o. prednisone 40 mg daily x5 days and p.o. azithromycin 500 mg today followed by 250 mg daily x4 days. She was advised to continue symptomatic management including rest, increase fluids, acetaminophen/ibuprofen for mild pain/fevers, and [id number] decongestants/antihistamines. She was advised that the lymph node should improve once her illness is treated and she starts feeling better; however, she was strongly encouraged to follow-up with her primary care physician if the nodule persists once she is feeling better for further work-up. Patient verbalized understanding and is agreeable with the plan. Orders: Orders XR chest 2V Today R05.9 - Cough, unspecified SARS-CoV2/FLU/RSV Today J06.9 - Acute upper respiratory infection, unspecified Medications: New prednisone 40 mg (2 x 20 mg) PO DAILY 10 tabs 0RF azithromycin For 250 mg dose pack: take 500 mg today (day 1), then 250 mg for 4 days (days 2-5) PO 6 tabs 0RF Coding Level of Care Code Est Pt Level 3 (01385) Diagnoses Acute lower respiratory tract infection J22
== END 2023-11-22 09:52 | disposition home or self-care (01) ==
PROVIDERS: PCP Internal Medicine; Visit Provider Physician Assistant Medical
DX: J22 Unspecified acute lower respiratory infection (principal)

== ENCOUNTER → 2023-11-22 08:37 | Outpatient (BNVA) | payer OTHER, SELFPAY | PROVIDERS: PCP Internal Medicine; Visit Provider Physician Assistant Medical ==

== ENCOUNTER 2023-11-22 09:09 | Outpatient (REF) | payer OTHER, SELFPAY ==
--- NOTE | ~2023-11-22 | XR_ITS ---
EXAMINATION: XR CHEST CLINICAL INFORMATION: R05.9 - Cough, unspecified COMPARISON: 10/04/2022. TECHNIQUE: 2 views of the chest were obtained. FINDINGS: Mildly elevated left hemidiaphragm. This is unchanged. The cardiac, hilar, and mediastinal contours are normal. The lungs are clear bilaterally. There is no pneumothorax or pleural effusion. There is no focal osseous or soft tissue abnormality. XR/XR chest 2V IMPRESSION: No active pulmonary disease. Electronically signed by: Arvind Lew MD 01/12/2024 09:51 PM EST
[2023-11-22 11:05] LABS: Influenza A PCR NEGATIVE (Negative); Influenza B PCR NEGATIVE (Negative); Resp Syncy Virus RNA Qual PCR NEGATIVE (Negative); SARS COV2 PCR INHOUSE NEGATIVE (Negative)
== END 2023-11-22 09:10 | disposition home or self-care (01) ==
LOC: HO.HMGCX 09:09
PROVIDERS: PCP Internal Medicine; Visit Provider Physician Assistant Medical
DX: R05.9 Cough, unspecified (principal); J06.9 Acute upper respiratory infection, unspecified
CPT/HCPCS: 0241U; 71046; 99212

== ENCOUNTER → 2023-11-22 09:12 | Outpatient (BNV) | payer OTHER, SELFPAY | PROVIDERS: PCP Internal Medicine; Visit Provider Radiology Diagnostic Radiology | DX: J06.9 Acute upper respiratory infection, unspecified (principal) | CPT/HCPCS: 71046 ==

== ENCOUNTER 2023-11-28 13:56 | Outpatient (REF) | payer OTHER, SELFPAY ==
--- NOTE | 2023-11-28 13:59 | EMG_ITS ---
Chief complaint: Bilateral hand pain and numbness Reason for referral: Evaluate for Carpal Tunnel Syndrome Referred by: Leon WAY Procedure done: Bilateral upper extremities NCS/EMG Precautions and/or limitations: None The limb temperature was monitored continuously and remained between 32-36 degrees C during the performance of the NCS. Nerve Conduction Studies Anti Sensory Summary Table ?Stim Site NR Onset (ms) Norm Onset (ms) Peak (ms) Norm Peak (ms) O-P Amp (?V) Norm O-P Amp Site1 Site2 Delta-0 (ms) Dist (cm) Sam (m/s) Norm Sam (m/s) Left Median Anti Sensory (2nd Digit) Wrist ? 3.5 4.4 <3.6 11.2 >10 Wrist 2nd Digit 3.5 14.0 40 Right Median Anti Sensory (2nd Digit) Wrist ? 3.5 4.6 <3.6 21.3 >10 Wrist 2nd Digit 3.5 14.0 40 Right Radial Anti Sensory (Thumb) Forearm ? 1.3 2.0 <3.1 13.6 Forearm Thumb 1.3 0.0 Left Ulnar Anti Sensory (5th Digit) Wrist ? 2.4 3.3 <3.7 13.0 >15.0 Wrist 5th Digit 2.4 14.0 58 Right Ulnar Anti Sensory (5th Digit) Wrist ? 2.3 2.9 <3.7 22.1 >15.0 Wrist 5th Digit 2.3 14.0 61 Motor Summary Table ?Stim Site NR Onset (ms) Norm Onset (ms) O-P Amp (mV) Norm O-P Amp iAmp (mV) Amp (1st) (%) Site1 Site2 Delta-0 (ms) Dist (cm) Sam (m/s) Norm Sam (m/s) Left Median Motor (Abd Poll Brev) Wrist ? 4.8 <3.9 7.2 >4.5 8.5 100.0 Elbow Wrist 3.3 18.0 55 >45 Elbow ? 8.1 7.0 8.3 97.2 Right Median Motor (Abd Poll Brev) Wrist ? 4.2 <3.9 9.0 >4.5 10.8 100.0 Elbow Wrist 4.0 18.0 45 >45 Elbow ? 8.2 8.6 10.5 95.6 Left Ulnar Motor (Abd Dig Minimi) Wrist ? 2.8 <3.0 5.1 >5 6.0 100.0 B Elbow Wrist 2.7 15.0 56 >45 B Elbow ? 5.5 7.6 9.0 149.0 A Elbow B Elbow 1.5 10.0 67 >45 A Elbow ? 7.0 7.4 8.8 145.1 Right Ulnar Motor (Abd Dig Minimi) Wrist ? 2.7 <3.0 7.6 >5 9.2 100.0 B Elbow Wrist 3.0 17.0 57 >45 B Elbow ? 5.7 7.5 9.4 98.7 A Elbow B Elbow 1.3 10.0 77 >45 A Elbow ? 7.0 7.4 9.3 97.4 EMG ?Side Muscle Nerve Root Ins Act Fibs Psw Amp Dur Poly Recrt Int Pat Comment Right 1stDorInt Ulnar C8-T1 Nml Nml Nml Nml Nml 0 Nml Complete Right FlexCarRad Median C6-7 Nml Nml Nml Nml Nml 0 Nml Complete Right Biceps Musculocut C5-6 Nml Nml Nml Nml Nml 0 Nml Complete Right Triceps Radial C6-7-8 Nml Nml Nml Nml Nml 0 Nml Complete Right Deltoid Axillary C5-6 Nml Nml Nml Nml Nml 0 Nml Complete Left 1stDorInt Ulnar C8-T1 Nml Nml Nml Nml Nml 0 Nml Complete Left FlexCarRad Median C6-7 Nml Nml Nml Nml Nml 0 Nml Complete Left Biceps Musculocut C5-6 Nml Nml Nml Nml Nml 0 Nml Complete Left Triceps Radial C6-7-8 Nml Nml Nml Nml Nml 0 Nml Complete Left Deltoid Axillary C5-6 Nml Nml Nml Nml Nml 0 Nml Complete FINDINGS: Bilateral median motor nerves showed prolonged distal latencies, normal amplitude and normal conduction velocity. Bilateral median sensory nerve showed prolonged peak latencies. All other nerves tested within normal. Concentric needle EMG was performed in selected muscles of the bilateral upper extremities. Study did not reveal signs of electric abnormalities as shown in the table above. IMPRESSION: 1. This is an abnormal study. 2. There is electrodiagnostic evidence for bilateral moderate-severe median neuropathy at the wrist, consistent with carpal tunnel syndrome. 3. There is no electrodiagnostic evidence for ulnar neuropathy, brachial plexopathy, or cervical radiculopathy. Thank you for your kind referral. Jerilyn Morelos MD, OSCAR Board Certified, [place] Board [employer] Medicine and Rehabilitation (ABPMR) Board Certified, [place] Board of Electrodiagnostic Medicine (ABEM) CODIN [phone] x 2 MTDD
== END 2023-11-28 13:57 | disposition home or self-care (01) ==
LOC: HO.NEURO 13:56
PROVIDERS: PCP Internal Medicine
DX: R20.0 Anesthesia of skin (principal); R20.2 Paresthesia of skin
CPT/HCPCS: 95886; 95911

== ENCOUNTER → 2023-11-28 13:59 | Outpatient (BNV) | payer OTHER, SELFPAY | PROVIDERS: PCP Internal Medicine; Visit Provider Physical Medicine & Rehabilitation | DX: G56.03 Carpal tunnel syndrome, bilateral upper limbs (principal) | CPT/HCPCS: 95886; 95911 ==

== ENCOUNTER 2023-12-10 14:08 | Outpatient (AMB) | payer OTHER, SELFPAY ==
--- NOTE | 2023-12-10 15:00 | A.OFFVIS_ITS ---
Vital Signs 12/10/23 15:01 Height 5 ft 4 in Weight 212 lb BMI 36.4 Intake Visit Reasons: OV-Discuss LT wrist injection, EMG review Intake Note: Annie is a 58 yo right hand dominant female who presents today for an EMG review and to discuss a left basal injection. Patient reports numbness and tingling that occurs daily, on and off, left worse than right. 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 Denies finger locking. Has tried braces, steroid injections, and OT. EMG done 11/28/23 showing bilateral CTS. Patient would like to discuss surgery today. Allergies lamotrigine [From LAMICTAL] Allergy (Severe, Verified 12/10/23 15:01) RASH sumatriptan [From IMITREX] Allergy (Intermediate, Verified 12/10/23 15:01) RASH HPI HPI OV-Discuss LT wrist injection, EMG review: Details: Annie is a 58 year old right hand dominant woman who presents for a NCS review of her bilateral hand numbness. She complains of numbness in the median nerve distribution bilaterally, L>R. Symptoms intermittent, but daily, worse at night. She found limited relief from bracing, OT, and prior injections She also complains of pain at the base of her left thumb, worse with pinching or gripping activities. She would like an injection today. She also complains of pain at the base of her right thumb, worse with pinching or gripping activities. She says this began ~1 week ago and has been causing her increased pain. She denies currently working. She denies any locking or catching. [facility] Medical History Nocturnal hypoxemia Restrictive lung disease Respiratory failure with hypoxia Musculoskeletal pain Anxiety and depression Ex-smoker Allergic rhinitis Cataract Vitamin B12 deficiency Vitamin D insufficiency GERD (gastroesophageal reflux disease) ETOH abuse Migraine SUNSHINE on CPAP COPD (chronic obstructive pulmonary disease) Surgical History History of esophagogastroduodenoscopy (EGD) H/O colonoscopy S/P PRINCESS (total abdominal hysterectomy) History of total hysterectomy Family History Father Alcoholic Mother Diabetes mellitus HTN (hypertension) Mental health disorder Brother Substance use disorder Mental health disorder Brother Substance use disorder Daughter Mental health disorder Brother Substance use disorder Social History Household Members: Spouse Housing: House Do you presently have visiting nurse or other home services: No Alcohol intake: former Comment: all counts correct Patient Tobacco Use Status: Former Tobacco user Tobacco use type: Cigarette e-Cigarette/Vaping Use: Never Used Second Hand Smoke Exposure: No Substance Use Type: Crack/Cocaine Advance Directives Date on File: 02/28/22 service: No Current occupational status: disabled 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 Cognitive needs: No Hearing needs: No Vision needs: Yes Review of Systems Const All systems reviewed & are unremarkable except as noted in HPI and below Physical Exam Vital Signs: BMI result Body Mass Index 36.4 Const General: cooperative, healthy appearing and no acute distress Orientation/consciousness: patient oriented x3 HEENT Head: Yes normocephalic and Yes atraumatic Eyes EOM: EOMs intact bilaterally Resp Effort & Inspection: normal respiratory effort and able to speak in complete sentences Cardio Jugular venous distension: no JVD Skin General skin exam: turgor normal Rashes: no rashes Neuro General: patient oriented x3 Extrem Other: Evaluation of Left Upper Extremity: The patient is alert, oriented, and in no acute distress Neuro: Median, Ulnar, Radial nerves motor and sensory intact and sensation is normal to the tips of all digits No thenar or intrinsic wasting Good APB muscle belly firing and good finger cross Vascular: Cap refill brisk ROM: She can make a fist and extend all her digits No locking or catching Skin: No lacerations or abrasions. General: No Ecchymosis. No Erythema or evidence of infection. Tender over the basal joint bilaterally Pos shoulder sign Pos CMC grind Radiographs: 3 views of the left wrist were taken and viewed by me today in clinic. They show no fractures or dislocations. There is evidence of basal joint & STT joint osteoarthritis. She also has two small bone chips, one near the distal scaphoid and on near the trapezium Nerve Conduction Study: IMPRESSION: 1. This is an abnormal study. 2. There is electrodiagnostic evidence for bilateral moderate-severe median neuropathy at the wrist, consistent with carpal tunnel syndrome. 3. There is no electrodiagnostic evidence for ulnar neuropathy, brachial plexopathy, or cervical radiculopathy. Jerilyn Morelos MD, OSCAR 11/28/23 Psych Appearance: grossly normal Affect: normal affect Attitude: cooperative Office Procedures AMB Fracture Care Details: No fracture, injection Fracture Billing Code: Fracture Billing Code Assessment & Plan Assessment & Plan (1) Arthritis of carpometacarpal (CMC) joint of left thumb: Code(s): M18.12 - Unilateral primary osteoarthritis of first carpometacarpal joint, left hand Category: Medical (2) Carpal tunnel syndrome of left wrist: Code(s): G56.02 - Carpal tunnel syndrome, left upper limb Category: Medical (3) Carpal tunnel syndrome of right wrist: Code(s): G56.01 - Carpal tunnel syndrome, right upper limb Category: Medical (4) Arthritis of carpometacarpal (CMC) joint of right thumb: Code(s): M18.11 - Unilateral primary osteoarthritis of first carpometacarpal joint, right hand Category: Medical Plan Assessment & Plan: 1. Left basal joint osteoarthritis I educated her about this condition I discussed operative and non-operative treatment options The patient would like to proceed with an injection I discussed activity modification, they should limit or avoid any heavy or repetitive pinching or gripping activities She was fitted for a comfort cool brace to wear with daily activity Injection #1: The risks and benefits of a steroid injection including but not limited to risk of damage to blood vessels, nerve, tendon, infection, skin bleaching, persistent or worsening pain, and failure to improve symptoms were discussed with the patient and they wish to proceed with the steroid injection. Once consent was obtained the skin over the dorsum of the Left basal joint was sterilely prepped. The joint was then injected with a combination of 1 mL of (40 mg/ml} Depo-Medrol and 1% plain Lidocaine. The patient appears to have tolerated the procedure well and with no complications. She had good early relief before leaving clinic today. She knows that they may not have another steroid injection into this joint for least 4 months. 2. Left carpal tunnel syndrome, moderate-severe Symptoms intermittent, but daily, worse at night I educated her about this condition I discussed operative and non-operative treatment options The patient would like to proceed with surgery, beginning with her left side The risks and benefits of operative treatment were discussed with the patient and the patient wishes to proceed with surgery. These risks include, but are not limited to risk of damage to blood vessels, nerves, tendons, infection, recurrence, incomplete relief of preoperative symptoms, persistent pain, possible need for further surgery and the risks associated with regional blocks and anesthesia. The plan is to take the patient to the operating room sometime in the next few weeks for the following procedures: 1. Left carpal tunnel release, under local All of the preoperative paperwork including the consent was reviewed today. All the patient's questions were answered. The patient understands that they will be contacted by our surgery scheduling coordinator soon to schedule this procedure She denies Diabetes, blood thinners, kidney issues She has COPD, asthma, and CVD 3. Right basal joint OA I educated her about this condition I discussed operative and non-operative treatment options As her pain began ~1 week ago, I recommend bracing & activity modification at this time I discussed activity modification, they should limit or avoid any heavy or repetitive pinching or gripping activities She was fitted for a comfort cool brace to wear with daily activity If her symptoms increase in frequency or severity she can follow up to discuss a possible injection 4. Right carpal tunnel syndrome, moderate-severe Symptoms intermittent, but daily, worse at night Again I educated her about her carpal tunnel syndrome. She can follow up to discuss treatment when her left side has recovered Scribed for Lin Patterson MD by Esvin Wang, medical representative, on 12/10/23 at 3:20 PM, EST. Coding Level of Care Code Est Pt Level 4 (29051) Diagnoses Arthritis of carpometacarpal (CMC) joint of left thumb M18.12 Carpal tunnel syndrome of left wrist G56.02 Carpal tunnel syndrome of right wrist G56.01 Arthritis of carpometacarpal (CMC) joint of right thumb M18.11 CPT Codes Fracture Care - Fracture Billing Code: Fracture Billing Code ([id number])
[2023-12-10 15:01] VITALS: BMI 36.4
== END 2023-12-10 15:48 | disposition home or self-care (01) ==
LOC: HO.HOS 14:09
PROVIDERS: PCP Internal Medicine; Visit Provider Orthopaedic Surgery
DX: M18.0 Bilateral primary osteoarthritis of first carpometacarpal joints (principal); G56.03 Carpal tunnel syndrome, bilateral upper limbs
CPT/HCPCS: 20600; 99214

== ENCOUNTER → 2023-12-10 14:08 | Outpatient (BNVA) | payer OTHER, SELFPAY | PROVIDERS: PCP Internal Medicine; Visit Provider Orthopaedic Surgery | DX: M18.0 Bilateral primary osteoarthritis of first carpometacarpal joints (principal); G56.03 Carpal tunnel syndrome, bilateral upper limbs | CPT/HCPCS: 20600; 99212; J1010; J2003 ==

== ENCOUNTER 2023-12-30 13:24 | Outpatient (AMB) | payer OTHER, SELFPAY ==
--- NOTE | 2023-12-30 13:29 | A.OFFVIS_ITS ---
Intake Visit Reasons: OV - LT Shoulder 09/04/23 NE Intake Note: Annie is a 57 year old right hand dominant female who presents today for a post op appointment s/p LT Shoulder - biceps tenotomy with circumferential labral debridement, SAD - 09/04/23. Patient reports that she is doing well, she has occasional shooting pain but overall doing well. Allergies lamotrigine [From LAMICTAL] Allergy (Severe, Verified 12/10/23 15:01) RASH sumatriptan [From IMITREX] Allergy (Intermediate, Verified 12/10/23 15:01) RASH HPI HPI OV - LT Shoulder 09/04/23 NE: Details: Annie is doing well with no complaints. She has been doing physical therapy. Her motion is improving. COUNT INCLUDES THE [facility] Medical History Nocturnal hypoxemia Restrictive lung disease Respiratory failure with hypoxia Musculoskeletal pain Anxiety and depression Ex-smoker Allergic rhinitis Cataract Vitamin B12 deficiency Vitamin D insufficiency GERD (gastroesophageal reflux disease) ETOH abuse Migraine SUNSHINE on CPAP COPD (chronic obstructive pulmonary disease) Surgical History History of esophagogastroduodenoscopy (EGD) H/O colonoscopy S/P PRINCESS (total abdominal hysterectomy) History of total hysterectomy Family History Father Alcoholic Mother Diabetes mellitus HTN (hypertension) Mental health disorder Brother Substance use disorder Mental health disorder Brother Substance use disorder Daughter Mental health disorder Brother Substance use disorder Social History Household Members: Spouse Housing: House Do you presently have visiting nurse or other home services: No Alcohol intake: former Comment: all counts correct Patient Tobacco Use Status: Former Tobacco user Tobacco use type: Cigarette e-Cigarette/Vaping Use: Never Used Second Hand Smoke Exposure: No Substance Use Type: Crack/Cocaine Advance Directives Date on File: 02/28/22 service: No Current occupational status: disabled 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 Continue exercises that she was taught at physical therapy and follow up as needed. Coding Level of Care Code Global (06414) Diagnoses Status post arthroscopy of shoulder Z98.890
== END 2023-12-30 15:26 | disposition home or self-care (01) ==
PROVIDERS: PCP Internal Medicine; Visit Provider Orthopaedic Surgery
DX: S46.012D Strain of muscle(s) and tendon(s) of the rotator cuff of left shoulder, subsequent encounter (principal); S43.432D Superior glenoid labrum lesion of left shoulder, subsequent encounter
CPT/HCPCS: 99212

== ENCOUNTER → 2023-12-30 13:24 | Outpatient (BNVA) | payer OTHER, SELFPAY | PROVIDERS: PCP Internal Medicine; Visit Provider Orthopaedic Surgery | DX: Z47.89 Encounter for other orthopedic aftercare (principal); Z98.890 Other specified postprocedural states | CPT/HCPCS: 99212 ==

== ENCOUNTER 2024-01-16 09:26 | Outpatient (AMB) | payer OTHER, SELFPAY ==
--- NOTE | 2024-01-16 09:27 | MHC.OFFWIV ---
Intake Vital Signs 01/16/24 09:40 Height 5 ft 4 in Weight 218 lb BMI 37.4 BP 124/80 Blood Pressure Location Rt brachial Position Sitting Pulse 83 Pulse Source Pulse Oximeter Pulse Oximetry (%) 95 Oxygen Delivery Method Room Air Intake Visit Reasons: EP dizzy, stomach, lack of appetite Intake Note: Patient here for dizzy spells, lack of appetite, stomach discomfort. she states about 10 days ago she went on a bad cai and drank more than she ever has. Patient Tobacco Use Status: Former Tobacco user Allergies sumatriptan [From IMITREX] Allergy (Intermediate, Verified 01/16/24 09:43) RASH Do you need a note to return to daycare/school/sports/work: No HPI HPI Comments History of Present Illness Details History of Present Illness The patient is a 58-year-old female presenting with dizziness and associated symptoms following an episode of heavy alcohol consumption approximately 10 days ago, during which she consumed more alcohol than usual. The dizziness is intermittent and exacerbated by positional changes. The patient describes it as a sensation of being off balance. She reports a history of excessive alcohol use and is currently under a treatment plan including Vivitrol administration monthly, with her last missed dose two Sundays ago. She was administered acamprosate for alcohol dependence. The patient experienced additional symptoms including sweating, stomach discomfort described as bloating and a hard abdomen, and a lack of appetite. She expresses concern about potential alcohol poisoning. The patient also mentions recent life stressors, including the loss of her a year ago, contributing to her alcohol use. She has a supportive network, including attendance at [facility] for therapy and her granddaughter living with her. The patient wants to start attending AA meetings and is exploring grief counseling. On physical assessment, she reports non-specific chest pain and describes symptoms of impacted cerumen. History also includes constipation and episodic gastrointestinal discomfort. Physical Exam General: Cooperative, healthy appearing, comfortable, no acute distress and well developed Orientation: Patient oriented x3 Limitations: No limitations Head: Normal to inspection Ears: Hearing grossly normal bilaterally, bilateral cerumen impaction in twisted ear canals bilaterally R worse than L Nose: Normal external nose present Face and sinus: Normal facial exam Eyes: Appearance normal, both eyes and all related structures Neck: Normal visual inspection and Yes full ROM Respiratory: Normal respiratory effort and able to speak in complete sentences. Clear to auscultation bilaterally Cardiovascular: Regular rate and rhythm. Normal S1 and S2 GI: Tenderness noted in the LUQ and lower abdomen Skin: No rashes or lesions noted Neuro: Patient oriented x3 Extremities: Normal to inspection PFSH Medical History Nocturnal hypoxemia Restrictive lung disease Respiratory failure with hypoxia Musculoskeletal pain Anxiety and depression Ex-smoker Allergic rhinitis Cataract Vitamin B12 deficiency Vitamin D insufficiency GERD (gastroesophageal reflux disease) ETOH abuse Migraine SUNSHINE on CPAP COPD (chronic obstructive pulmonary disease) Surgical History History of esophagogastroduodenoscopy (EGD) H/O colonoscopy S/P PRINCESS (total abdominal hysterectomy) History of total hysterectomy Family History Father Alcoholic Mother Diabetes mellitus HTN (hypertension) Mental health disorder Brother Substance use disorder Mental health disorder Brother Substance use disorder Daughter Mental health disorder Brother Substance use disorder Social History Household Members: Spouse Housing: House Do you presently have visiting nurse or other home services: No Alcohol intake: former Comment: all counts correct Patient Tobacco Use Status: Former Tobacco user Tobacco use type: Cigarette e-Cigarette/Vaping Use: Never Used Second Hand Smoke Exposure: No Substance Use Type: Crack/Cocaine Advance Directives Date on File: 02/28/22 service: No Current occupational status: disabled 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 Cognitive needs: No Hearing needs: No Vision needs: Yes Review of Systems Const All systems reviewed & are unremarkable except as noted in HPI and below Physical Exam Vital Signs: Last Vital Signs Pulse 83 01/16/24 09:40 BP 124/80 01/16/24 09:40 Pulse Ox 95 01/16/24 09:40 Oxygen Delivery Method Room Air 01/16/24 09:40 BMI result Body Mass Index 37.4 Office Procedures Cerumen Removal Details: unable to remove with curette or irrigation From which ear canal was the cerumen removed: bilateral Removal: irrigation and otoscope w/curette Notes: patient tolerated procedure well and no complications [id number] Irrigation/Lavage Assessment & Plan Assessment & Plan (1) Dizziness: Code(s): R42 - Dizziness and giddiness Plan: Unable to remove the impacted cerumen with ear irrigation due to patient's twisted ear canals. Recommended she call her ENT doctor to have them remove it in the meanwhile, she should be using Debrox drops to soften the cerumen. The removal of the impacted cerumen can potentially alleviate symptoms contributing to dizziness. Monitor for changes in severity and go to ED if symptoms persist or worsen. (2) Alcohol use disorder: Code(s): F10.90 - Alcohol use, unspecified, uncomplicated Plan: Alcohol Use Disorder: Encourage continued participation in scheduled Vivitrol injections and attendance at therapy sessions and AA meetings to support recovery. Monitor for withdrawal symptoms. Patient's constellation of symptoms are likely due to alcohol withdrawal and detoxing. She is well past the most immediate and emergent phase. Recommended she monitor her symptoms and if they get worse, she should go to the emergency department for further workup. However, she should continue to abstain from alcohol, get plenty of rest, hydrate and eat healthy and take care of her mental health, as noted above. Pancreatitis risk: Advise the patient to seek immediate care if symptoms intensify to rule out pancreatitis due to her history of heavy alcohol use. Had community health worker, Jacklyn Gong sit with the patient and explore other resources available to her to help her through grieving and alcohol use disorder. Support the patient in grief counseling and monitor mental health status. (3) Impacted cerumen of both ears: Code(s): H61.23 - Impacted cerumen, bilateral Plan: Impacted Cerumen: Perform ear irrigation and advise on avoidance of Q-tips to prevent recurrence. Follow up if symptoms persist or if additional symptoms occur. Plan Patient was informed and verbally consented to the use of an ambient scribe for clinic note documentation during this visit. Coding Level of Care Code Est Pt Level 4 (52156) Diagnoses Dizziness R42 Alcohol use disorder F10.90 Impacted cerumen of both ears H61.23 CPT Codes Office Procedure - CPT: 05238-Qjy Irrigation/Lavage ([id number])
[2024-01-16 09:40] VITALS: BP 124/80; PULSE 83; O2SAT 95; BMI 37.4
== END 2024-01-16 10:49 | disposition home or self-care (01) ==
PROVIDERS: PCP Internal Medicine; Visit Provider Physician Assistant
DX: R42 Dizziness and giddiness (principal); F10.90 Alcohol use, unspecified, uncomplicated; H61.23 Impacted cerumen, bilateral

== ENCOUNTER → 2024-01-16 09:26 | Outpatient (BNVA) | payer OTHER, SELFPAY | PROVIDERS: PCP Internal Medicine; Visit Provider Physician Assistant | DX: R42 Dizziness and giddiness (principal); H61.23 Impacted cerumen, bilateral; F10.90 Alcohol use, unspecified, uncomplicated | CPT/HCPCS: 69210; 99212 ==

== ENCOUNTER 2024-01-30 08:51 | Day surgery (SDC) | payer OTHER, SELFPAY ==
[2024-01-30 09:10] VITALS: BP 124/86; PULSE 91; RESP 16; TEMP 36.4; O2SAT 94
[2024-01-30 09:13] VITALS: BMI 34.3
--- NOTE | 2024-01-30 09:36 | MHC.SHP ---
Pre-Procedural Eval Section A - 24 Hr Update-Section A only Date of Service: 01/30/24 The patient is an INPATIENT: No Changes since office visit: No Cold of Flu in the past 2 weeks, No New Medical Problems, No Changes in Medication and No Patient answered all questions The patient has been examined within 24 hours of the surgical procedure. The History & Physical has been completed within 30 days and I have reviewed it.: Yes Section B - Complete if H&P > 30 days Chief Complaint: Carpal tunnel syndrome, left upper limb Allergies: Allergies Allergy/AdvReac Type Severity Reaction Status Date / Time sumatriptan [From IMITREX] Allergy Intermediate RASH Verified 01/16/24 09:43 Plan Diagnosis/Plan: Unchanged I have reviewed the history and physical and performed a pertinent physical examination on my patient. No changes have occurred unless specified. Time Spent With Patient Time: Total time managing care of this patient today ____ minutes.
--- NOTE | 2024-01-30 09:36 | W.PM.OPN ---
Operative Note Operative Note Date of Service: 01/30/24 Narrative: Preop diagnosis: 1. Right Carpal tunnel syndrome Postop diagnosis: same Procedure: 1. Right Carpal tunnel release Surgeon: Lin Patterson MD Dry Paste Supervisor: Leon WAY Anesthesia: local block using 1% lidocaine with epinephrine Findings: Thickened transverse carpal ligament. EBL: Less than 5 mL Specimens: None Complications: None Disposition: Brought to recovery room in stable condition Plan: Follow-up for 10-14 days for wound check and suture removal Indications: The patient is 58 years old, with right carpal tunnel syndrome that has been unresponsive to nonoperative management. The risks and benefits of operative treatment including but not limited to risk of damage to blood vessels, nerves, tendons, infection, persistent pain, persistent symptoms, or possible need for additional surgery were discussed with the patient and the patient wishes to proceed with surgery. Procedure: Once consent was obtained a local block was performed using a combination of 1% lidocaine with epinephrine. The patient was then brought back to the operating suite and placed on the operative table in supine position. The right upper extremity was prepped and draped in a standard surgical fashion. Once assured that we had a good block, a 2.0 cm longitudinal incision was made centered over the carpal tunnel. The incision was made through the skin to the subcutaneous tissues using a #15 blade. Dissection was made down to the level of the transverse carpal ligament with care being taken to protect the palmar cutaneous nerve. Once the transverse carpal ligament was clearly visualized, a longitudinal incision was made in the transverse carpal ligament 1st using a #15 blade, then using tenotomy scissors under direct visualization. Care was taken to look for and protect the motor branch of the median nerve when seen in this area. Once satisfied with our carpal tunnel release the wound was copiously irrigated with normal saline and hemostasis was obtained with a brief period of local pressure. The skin edges were reapproximated with some 5.0 nylon suture material and a sterile dressing was applied. The patient appears to have tolerated the procedure well and with no complications. All digits were well vascularized at the conclusion of the case.
[2024-01-30 11:37] VITALS: BP 128/66; PULSE 75; RESP 16; O2SAT 94
== END 2024-01-30 11:38 | disposition home or self-care (01) ==
PROVIDERS: PCP Internal Medicine; Visit Provider Orthopaedic Surgery
PROC: (CPT 64721; principal; 2024-01-30 09:40)
DX: G56.02 Carpal tunnel syndrome, left upper limb (principal); M18.11 Unilateral primary osteoarthritis of first carpometacarpal joint, right hand; R20.0 Anesthesia of skin; J96.91 Respiratory failure, unspecified with hypoxia; J98.4 Other disorders of lung; J30.9 Allergic rhinitis, unspecified; F41.8 Other specified anxiety disorders; J44.9 Chronic obstructive pulmonary disease, unspecified; G47.33 Obstructive sleep apnea (adult) (pediatric); E55.9 Vitamin D deficiency, unspecified; Z99.89 Dependence on other enabling machines and devices; Z88.8 Allergy status to other drugs, medicaments and biological substances; F10.10 Alcohol abuse, uncomplicated; Z87.891 Personal history of nicotine dependence; Z98.890 Other specified postprocedural states
CPT/HCPCS: 64721; J0171; J2003

== ENCOUNTER → 2024-01-30 08:51 | Outpatient (BNV) | payer OTHER, SELFPAY | PROVIDERS: PCP Internal Medicine; Visit Provider Orthopaedic Surgery | DX: G56.01 Carpal tunnel syndrome, right upper limb (principal) | CPT/HCPCS: 64721 ==

== ENCOUNTER 2024-02-04 15:52 | Outpatient (REF) | payer OTHER, SELFPAY | END 2024-02-04 15:53 | disposition home or self-care (01) | LOC: HO.HOSX 15:52 | PROVIDERS: Visit Provider Physician Assistant | DX: Z13.89 Encounter for screening for other disorder (principal) ==

== ENCOUNTER 2024-02-07 10:02 | Outpatient (REF) | payer OTHER, SELFPAY | END 2024-02-07 10:03 | disposition home or self-care (01) | LOC: HO.HOSX 10:02 | PROVIDERS: Visit Provider Physician Assistant | DX: Z13.89 Encounter for screening for other disorder (principal) ==

== ENCOUNTER 2024-02-11 14:20 | Outpatient (AMB) | payer OTHER, SELFPAY ==
--- NOTE | 2024-02-11 14:22 | MHC.OFFVIS ---
Vital Signs 02/11/24 14:23 Height 5 ft 4 in Weight 200 lb BMI 34.3 Intake Visit Reasons: PO LT CTR 01/30/24 AR Intake Note: Annie is a 58 year old right hand dominant female who presents today for a post operative appointment s/p Left Carpal Tunnel Release 01/30/24 AR. Patient reports that she is doing well, pain is resolving and numbness of the fingers has resolved completely. She does mention that she has some numbness in the palm of the left hand. She complains of pain in the base of the right thumb but we did discuss that this would need to evaluated at a non post-operative visit. Allergies sumatriptan [From IMITREX] Allergy (Intermediate, Verified 01/16/24 09:43) RASH HPI HPI PO LT CTR 01/30/24 AR: Details: Annie is a 58 year old right hand dominant female who presents today for a post operative appointment s/p Left Carpal Tunnel Release 01/30/24 AR. Patient reports that she is doing well, pain is resolving and numbness of the fingers has resolved completely. She does mention that she has some numbness in the palm of the left hand. She complains of pain in the base of the right thumb but we did discuss that this would need to evaluated at a non post-operative visit. [facility] Medical History Nocturnal hypoxemia Restrictive lung disease Respiratory failure with hypoxia Musculoskeletal pain Anxiety and depression Ex-smoker Allergic rhinitis Cataract Vitamin B12 deficiency Vitamin D insufficiency GERD (gastroesophageal reflux disease) ETOH abuse Migraine SUNSHINE on CPAP COPD (chronic obstructive pulmonary disease) Surgical History History of esophagogastroduodenoscopy (EGD) H/O colonoscopy S/P PRINCESS (total abdominal hysterectomy) History of total hysterectomy Family History Father Alcoholic Mother Diabetes mellitus HTN (hypertension) Mental health disorder Brother Substance use disorder Mental health disorder Brother Substance use disorder Daughter Mental health disorder Brother Substance use disorder Social History Household Members: Spouse Housing: House Do you presently have visiting nurse or other home services: No Alcohol intake: former Comment: all counts correct Patient Tobacco Use Status: Former Tobacco user Tobacco use type: Cigarette e-Cigarette/Vaping Use: Never Used Second Hand Smoke Exposure: No Substance Use Type: Crack/Cocaine Advance Directives Date on File: 02/28/22 service: No Current occupational status: disabled 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 Neuro: Normal sensation of the tips of all digits of the bilateral hand at this time Vascular: Cap refill brisk Pain: No tenderness to palpation about the incision site on the volar left wrist Patient reports significant tenderness to palpation of the radial styloid of the right wrist ROM: Patient is able to make a closed fist and extend all digits of bilateral hands without difficulty Positive Jelani on the right Skin: Well approximated and well healing incision on the volar aspect of the patient's left wrist General: No ecchymosis, erythema, or evidence of infection. Psych: Appears grossly normal Affect normal Attitude cooperative Assessment & Plan Assessment & Plan (1) Carpal tunnel syndrome of left wrist: Code(s): G56.02 - Carpal tunnel syndrome, left upper limb Category: Medical (2) Carpal tunnel syndrome of right wrist: Code(s): G56.01 - Carpal tunnel syndrome, right upper limb Category: Medical (3) De Quervain's tenosynovitis, right: Code(s): M65.4 - Radial styloid tenosynovitis [de Quervain] Category: Medical Plan 1. Carpal tunnel syndrome, left Status post carpal tunnel release DOS 01/30/24 Sutures removed, Steri-Strips applied Patient appears to be recovering well postoperatively Patient is educated about the typical recovery course Patient is educated that at this time, she will require no acute follow-up for her left carpal tunnel release, as she is recovering well Patient was amenable to this plan 2. Carpal tunnel syndrome, right Symptoms intermittent, not daily, worse at night At this time, patient states she would like to hold off on any operative intervention on her right carpal tunnel syndrome, as she does not find the symptoms to be very bothersome and she would like to make sure she has recovered fully from previous surgery Patient is educated on the potential effects of prolonging treatment for carpal tunnel syndrome Patient understands these risks 3. De Quervain tenosynovitis, right Patient is educated that she can follow-up at a new appointment for potential injection or discussion of other treatment options for right de Quervain tenosynovitis Patient was amenable to this plan Patient will follow-up 4-6 weeks for follow-up for de Quervain tenosynovitis and potential getting signed up for right carpal tunnel release, sooner with any acute concerns Coding Level of Care Code Global (31047) Diagnoses Carpal tunnel syndrome of left wrist G56.02 Carpal tunnel syndrome of right wrist G56.01 De Quervain's tenosynovitis, right M65.4
[2024-02-11 14:23] VITALS: BMI 34.3
== END 2024-02-11 14:42 | disposition home or self-care (01) ==
PROVIDERS: PCP Internal Medicine
DX: G56.03 Carpal tunnel syndrome, bilateral upper limbs (principal); M65.4 Radial styloid tenosynovitis [de Quervain]
CPT/HCPCS: 99024

== ENCOUNTER → 2024-02-11 14:20 | Outpatient (BNVA) | payer OTHER, SELFPAY | PROVIDERS: PCP Internal Medicine | DX: Z47.89 Encounter for other orthopedic aftercare (principal); G56.01 Carpal tunnel syndrome, right upper limb; M65.4 Radial styloid tenosynovitis [de Quervain] | CPT/HCPCS: 99212 ==

== ENCOUNTER 2024-03-17 11:16 | Outpatient (REF) | payer OTHER, SELFPAY ==
--- NOTE | ~2024-03-17 | XR_ITS ---
CLINICAL HISTORY: M79.641 - Pain in right hand 3 view right hand Comparison: None Findings: No fractures or dislocations. No significant loss of joint space or osteophytes. No erosions. No radiopaque foreign body. IMPRESSION: 1. No acute findings This document has been electronically signed by: Esperanza Alfonso MD on 03/19/2024 02:15:56
--- OUTSIDE RECORDS SUMMARY | 2024-03-17 12:48 | XMS_ITS | Clinical Summary ---
Author Organization [facility] [employer] Address [address] [place] [address] Care Team Providers Care Senior Contracts Manager Name Role Phone Sandi Andrade MD Primary Care Provider [phone] Allergies Active Allergy Reactions Criticality Noted Date [...] [address] [place] [address] Sandi Cloud MD Gastroesophageal reflux [...] age to complete this topic Care Teams Senior Contracts Manager Relationship Specialty Start Date End Date Sandi Andrade MD [address] [facility] [place] [address] PCP - General Internal Medicine 01/01/24
--- OUTSIDE RECORDS SUMMARY | 2024-03-17 12:48 | XMS_ITS | Encounter Summary ---
Author Organization [employer] Address [address] [place] [address] Care Team Providers Care Incident Response Specialist Name Role Phone Sandi Andrade MD Primary Care Provider Reason for Visit * Reason Comments GERD Constipation Encounter Details Date Type Department Care Team (Latest Contact Info) Description 02/21/2024 1:45 PM EST Office Visit Gastroenterology - [address] [phone] Sandi Cloud MD [address] [place] [address] [address] Gastroesophageal reflux disease with esophagitis without hemorrhage [...] that time she had been seen at [facility] for another aspiration pneumonia. She subsequently [...] Board Certified, Gastroenterology Gastroenterology and Hepatology Practice [facility] [email or web address] [phone] [place] [phone] [email or web address] Sandi Cloud MD documented in this encounter [...] day. added in this encounter Care Teams Incident Response Specialist Relationship Specialty Start Date End Date Sandi Andrade MD [address] [place] [address] PCP - General Internal Medicine 01/01/24 documented as of this encounter
== END 2024-03-17 11:17 | disposition home or self-care (01) ==
LOC: HO.HOSX 11:16
PROVIDERS: PCP Internal Medicine
DX: M79.641 Pain in right hand (principal); M18.11 Unilateral primary osteoarthritis of first carpometacarpal joint, right hand
CPT/HCPCS: 20600; 73130; 99212; J1010; J2003

== ENCOUNTER 2024-03-17 11:16 | Outpatient (AMB) | payer OTHER, SELFPAY ==
--- NOTE | 2024-03-17 11:39 | MHC.OFFVIS ---
Vital Signs 03/17/24 11:46 Height 5 ft 4 in Weight 200 lb BMI 34.3 Intake Visit Reasons: OV- R DeQuervains/CTS Intake Note: Annie is a 57 year old right hand dominant female who presents today for a follow up visit of her right hand DeQuervains & Carpal Tunnel. Patient reports she is doing well, states scheduled for CTR in April. She is requesting a thumb injection as she has been experiencing discomfort in her thumb that has been getting worse with the cold weather. She continues to wear thumb brace prn. Allergies sumatriptan [From IMITREX] Allergy (Intermediate, Verified 03/17/24 11:46) RASH HPI HPI OV- R DeQuervains/CTS: Details: Annie is a 57 year old right hand dominant female who presents today for a follow up visit of her right hand DeQuervains & Carpal Tunnel. Patient reports she is doing well, states scheduled for CTR in April. She is requesting a thumb injection as she has been experiencing discomfort in her thumb that has been getting worse with the cold weather. She continues to wear thumb brace prn. PFSH Medical History Nocturnal hypoxemia Restrictive lung disease Respiratory failure with hypoxia Musculoskeletal pain Anxiety and depression Ex-smoker Allergic rhinitis Cataract Vitamin B12 deficiency Vitamin D insufficiency GERD (gastroesophageal reflux disease) ETOH abuse Migraine SUNSHINE on CPAP COPD (chronic obstructive pulmonary disease) Surgical History History of esophagogastroduodenoscopy (EGD) H/O colonoscopy S/P PRINCESS (total abdominal hysterectomy) History of total hysterectomy Family History Father Alcoholic Mother Diabetes mellitus HTN (hypertension) Mental health disorder Brother Substance use disorder Mental health disorder Brother Substance use disorder Daughter Mental health disorder Brother Substance use disorder Social History Household Members: Spouse Housing: House Do you presently have visiting nurse or other home services: No Alcohol intake: former Comment: all counts correct Patient Tobacco Use Status: Former Tobacco user Tobacco use type: Cigarette e-Cigarette/Vaping Use: Never Used Second Hand Smoke Exposure: No Substance Use Type: Crack/Cocaine Advance Directives Date on File: 02/28/22 service: No Current occupational status: disabled 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 Neuro: Normal sensation of the tips of all digits of the bilateral hand at this time Vascular: Cap refill brisk Pain: No tenderness to palpation about the incision site on the volar left wrist Patient reports significant tenderness to palpation of the radial styloid of the right wrist ROM: Patient is able to make a closed fist and extend all digits of bilateral hands without difficulty Negative Jelani on the right Positive CMC grind on the right Skin: Well approximated and well healed incision on the volar aspect of the patient's left wrist General: No ecchymosis, erythema, or evidence of infection. Psych: Appears grossly normal Affect normal Attitude cooperative Results Reviewed Results Reviewed: X-rays obtained in the office today and independently reviewed by me, Leon Katz PA-C, demonstrate very mild basal joint arthritis of the right thumb. Assessment & Plan Assessment & Plan (1) Arthritis of carpometacarpal (CMC) joint of right thumb: Code(s): M18.11 - Unilateral primary osteoarthritis of first carpometacarpal joint, right hand Category: Medical Plan 1. Basal joint arthritis of right thumb The risks and benefits of a steroid injection including but not limited to risk of damage to blood vessels, nerve, tendon, infection, skin bleaching, persistent or worsening pain, and failure to improve symptoms were discussed with the patient and they wish to proceed with the steroid injection. Once consent was obtained the skin over the dorsum of the right basal joint was sterilely prepped. The joint was then injected with a combination of 1 mL of (40 mg/ml} Depo-Medrol and 1% plain Lidocaine. The patient appears to have tolerated the procedure well and with no complications. He had good early relief before leaving clinic today. He knows that they may not have another steroid injection into this joint for least 4 months. Orders: Orders XR hand RT min 3V Today M79.641 - Pain in right hand Coding Level of Care Code Est Pt Level 3 (95169) Diagnoses Arthritis of carpometacarpal (CMC) joint of right thumb M18.11
[2024-03-17 11:46] VITALS: BMI 34.3
--- OUTSIDE RECORDS SUMMARY | 2024-03-17 12:19 | XMS_ITS | Encounter Summary ---
Author Organization [facility] Address [address] [place] [address] Care Team Providers Care Banking Teacher Name Role Phone Sandi Andrade MD Primary Care Provider [phone] Reason for Visit * Reason Comments GERD Constipation Encounter Details Date Type Department Care Team (Latest Contact Info) Description 02/21/2024 1:45 PM EST Office Visit Gastroenterology - [address] [phone] Sandi Cloud MD [address] [place] [address] [id number] Gastroesophageal reflux disease with esophagitis without hemorrhage (Primary Dx); Chronic constipation; Gastroesophageal reflux disease without esophagitis Social History Tobacco Use Types Packs/Day Years Used Date Smoking Tobacco: Former Cigarettes Smokeless Tobacco: Never Alcohol Use Standard Drinks/Week Comments Yes 0 (1 standard drink = 0.6 oz pur e alcohol) Sex and Gender Information Value Date Recorded Sex Assigned at Not on file Gender Identity Not on file Sexual Orientation Not on file Job Start Date Occupation Industry Not on file Not on file Not on file documented as of this encounter Last Filed Vital Signs Vital Sign Reading Time Taken Comments Blood Pressure - - Pulse - - Temperature - - Respiratory Rate - - Oxygen Saturation - - Inhaled Oxygen Concentration - - Weight 94.8 kg (209 lb) 02/21/2024 1:49 PM EST Height 162.6 cm (5' 4 ) 02/21/2024 1:49 PM EST Body Mass Index 35.87 02/21/2024 1:49 PM EST documented in this encounter Ordered Prescriptions Prescription Sig Dispensed Refills Start Date End Da te pantoprazole (PROTONIX) 40 mg EC tabletIndications:Gastroe sophageal reflux disease without esophagitis Take 1 tablet (40 mg total) by mouth 2 (two) times a day. 180 each 3 02/21/2024 02/20/2025 documented in this encounter Progress Notes * Sandi Cloud MD - 02/21/2024 1:45 PM EST CHIEF COMPLAINT: GERD and Constipation HPI: Annie Pak is a 58 y.o. old female who was originally referred to us by Sandi Andrade MD now presents to the gastroenterology department today for a follow up of GERD and history of aspiration pneumonia and chronic constipation. Patient was last seen in the office on 04/02/23. At that time she had been seen at [facility] for another aspiration pneumonia. She subsequently underwent a barium swallow evaluation with speech language pathology which revealed mild pharyngeal dysphagia. They recommended a few follow up visits for swallow exercises. She also has documented esophagitis as noted on previous endoscopies in 2018 and 2021. No ETOH for past two months. Also lost partial which has affected swallowing recently. November had shoulder surgery. 3 weeks ago had left CTR. Constipation continues on healthy diet and that frustrates her. We did discuss that her symptoms are consistent with chronic constipation. She denies any recent history of aspiration pneumonia. ROS: GENERAL: No malaise, significant weight loss or fever HEENT: No changes in hearing or vision, nose bleeds or swallowing problems NECK: No lumps, goiter, pain or significant neck swelling RESPIRATORY: No cough, wheezing or shortness of breath CARDIOVASCULAR: No chest pain, leg swelling or palpitations GI: as per HPI MUSCULOSKELETAL: No joint pain or swelling, back pain, or muscle pain. SKIN: No lesions, rash or itching The remainder of the review of systems is reviewed and negative. PAST MEDICAL HISTORY: Past Medical History: Diagnosis Date Alcohol use disorder Aspiration pneumonia (CMS/HCC) Bipolar 1 disorder (CMS/HCC) Chronic constipation COPD (chronic obstructive pulmonary disease) (CMS/HCC) Dysphagia GERD (gastroesophageal reflux disease) HTN (hypertension) Obesity SUNSHINE (obstructive sleep apnea) PAST SURGICAL HISTORY: Past Surgical History: Procedure Laterality Date COLONOSCOPY W/ POLYPECTOMY 11/19/2018 benign poylp- 10 yr recall ESOPHAGOGASTRODUODENOSCOPY 01/03/2022 HH, grade 3 esophagitis ESOPHAGOGASTRODUODENOSCOPY 11/19/2018 esophagitis TOTAL ABDOMINAL HYSTERECTOMY SOCIAL HISTORY: Social History Tobacco Use Smoking status: Former Types: Cigarettes Smokeless tobacco: Never Substance Use Topics Alcohol use: Yes FAMILY HISTORY: No family history on file. ACTIVE MEDICATIONS: Current Outpatient Medications Medication Sig Dispense Refill alendronate (FOSAMAX) 70 mg tablet TAKE 1 TABLET ORALLY EVERY WEEK atorvastatin (LIPITOR) 10 mg tablet Take 1 tablet (10 mg total) by mouth 1 (one) time each day in the evening. cholecalciferol (VITAMIN D-3) 50 mcg (2,000 unit) capsule Take 1 capsule (2,000 Units total) by mouth 1 (one) time each day. clonazePAM (KlonoPIN) 1 mg tablet Take 1 tablet (1 mg total) by mouth 2 (two) times a day. gabapentin (NEURONTIN) 400 mg capsule TAKE 1 CAPSULE BY MOUTH EVERY DAY AT BEDTIME FOR 90 DAYS montelukast (SINGULAIR) 10 mg tablet Take 1 tablet (10 mg total) by mouth 1 (one) time each day. pantoprazole (PROTONIX) 40 mg EC tablet Take 1 tablet (40 mg total) by mouth 2 (two) times a day. 180 each 3 Wixela Inhub 250-50 mcg/dose diskus inhaler 1 puff 2 (two) times a day. No current facility-administered medications for this visit. ALLERGIES: Allergies Allergen Reactions Imitrex [Sumatriptan] PHYSICAL EXAM: Visit Vitals Ht 1.626 m (64 ) Wt 94.8 kg (209 lb) BMI 35.87 kg/m?? Smoking Status Former BSA 1.99 m?? APPEARANCE: Alert and in no acute distress EYES: PERRLA, conjunctiva and sclera normal. MOUTH/THROAT: no erythema or exudates NECK: Neck supple, no adenopathy HEART: RRR with normal S1 and S2, no murmurs appreciated LUNG: clear to auscultation LYMPH NODES: grossly normal ABDOMEN: soft non tender, no ascites, guarding, or rebound, no organomegaly. RECTAL: Exam deferred. EXTREMITIES: Extremities warm and well perfused SKIN: Skin color, texture, turgor normal. NEURO: Awake, alert and oriented x 3 Assessment & Plan Chronic constipation Patient with continued constipation issues. Recommended that she restart MiraLAX on a regular basisif needed. Gastroesophageal reflux disease without esophagitis Her reflux is currently under control with her current regimen of pantoprazole twice daily. Refillswill be given today and she will follow-up with in 1 years time. Knows to call sooner if questions or concerns arise. Orders: pantoprazole (PROTONIX) 40 mg EC tablet; Take 1 tablet (40 mg total) by mouth 2 (two) times a day. Follow up in about 1 year (around 02/20/2025) for Next scheduled follow-up. Board Certified, Gastroenterology G[facility]ology and Hepatology [email or web address] [phone] [place] [phone] [email or web address] Sandi Cloud MD documented in this encounter Plan of Treatment Not on file documented as of this encounter Visit Diagnoses Diagnosis Gastroesophageal reflux disease with esophagitis without hemorrhage- Primary Chronic constipation Unspecified constipation Gastroesophageal reflux disease without esophagitis Esophageal reflux documented in this encounter Discontinued Medications Medication Sig Discontinue Reason Start Date End Da te pantoprazole (PROTONIX) 40 mg EC tabletIndications:Gastroe sophageal reflux disease without esophagitis TAKE 1 TABLET BY MOUTH TWICE A DAY Reorder 01/15/2024 02/21/2024 documented as of this encounter Historical Medications * This list may reflect changes made after this encounter. Medication Sig Dispensed Refills Start Date End Date alendronate (FOSAMAX) 70 mg tablet TAKE 1 TABLET ORALLY EVERY WEEK 11/02/2023 atorvastatin (LIPITOR) 10 mg tablet Take 1 tablet (10 mg total) by mouth 1 (one) time each day in the evening. 01/28/2024 cholecalciferol (VITAMIN D-3) 50 mcg (2,000 unit) capsule Take 1 capsule (2,000 Units total) by mouth 1 (one) time each day. clonazePAM (KlonoPIN) 1 mg tablet Take 1 tablet (1 mg total) by mouth 2 (two) times a day. Wixela Inhub 250-50 mcg/dose diskus inhaler 1 puff 2 (two) times a day. gabapentin (NEURONTIN) 400 mg capsule TAKE 1 CAPSULE BY MOUTH EVERY DAY AT BEDTIME FOR 90 DAYS 11/16/2023 montelukast (SINGULAIR) 10 mg tablet Take 1 tablet (10 mg total) by mouth 1 (one) time each day. added in this encounter Care Teams Banking Teacher Relationship Specialty Start Date End Date Sandi Andrade MD [address] [place] [id number] PCP - General Internal Medicine 01/01/24 documented as of this encounter
--- OUTSIDE RECORDS SUMMARY | 2024-03-17 12:19 | XMS_ITS | Data Portability ---
Author Organization [employer] Address [address] [place] [id number] Care Team Providers Care Template Storage Clerk Name Role Phone HIM CCA OTHER Assessment Encounter Date Assessment Date Assessment LastModified by Organization Details LastModified Time 02/22/2022 02/22/2022 I provided real -time medical direction via phone for this encounter, and was available for additional phone based assistance as needed. I have reviewed and agree with the Assessment and Plan as documented by the Travel Rn. Patient given the opportunity to ask questions. Advised low threshold for ER: if develops increasing or changing CP/SOB/turning blue/uncontrolle d n/v or black/bloody emesis or stool/ AMS/ syncope/ hi fever un responsive to APAP to call 911- verbalized understanding of instructions [email or web address] Not available 02/22/2022 17:48:51 03/19/2022 03/19/2022 service called for burning nose and throat pain found 56 nara with COPD s/p hosp stay for COVID pneumonia now home with supplemental O2 per NC rpeorts 1 wk worsening nares irritation, redness, throat burning +forced hot air heating no new cough, fevers, chills VSS per report redness b/l nares no thrust in oral cavity Most likely dry O2 irritation, exacerbated by increase heating from recent cold -advised petrolatum b/l nares -likely requires humidifer, refer to primary team -notify service if worsening [email or web address] Not available 03/19/2022 18:12:40 06/21/2022 06/21/2022 I have reviewed and agree with the assessment and plan as documented by the railway switchman. I provided real time medical direction for this encounter and was immediately available to provide additional phone based assistance as needed. History as noted by railway switchman. Pt reports that earlier today while walking off of a step, she fell, twisting her L foot and landed on the ground on top of her foot. She reports significant pain and swelling of the lateral L foot. She has also noted pain in the L knee. She has been able to weight bear but it is painful. No numbness or paresthesias of the foot or toes. On exam, pt with significant swelling, bruising and tenderness of the lateral left foot. Neurovascular exam of the foot and toes normal. L knee with some tenderness but no swelling or deformity. Impression: Pt with what appears to be a fracture of the L foot, likely involving the 5th and also possibly the 4th metatarsal. This is reviewed with the pt. Pt is told that she needs to go to the ED or local urgent care for xrays and to have a splint or Sanchez dressing placed. Pt agrees to go to the ED or urgent care. I recommended that we arrange ambulance transport but pt declines and plans to drive herself. Medic will help pt get into her car as well. Pt is told that she will also need to follow up with a attendant coin operated laundry/ortho pedic child protection specialist after the diagnosis is made and she can get a referral from the ED or urgent care. [email or web address] Not available 06/21/2022 16:50:16 Plan of Treatment Reminders Order Date Submit Date Provider Last Modified By Organization Details Last Modified Time Details Appointments None recorded. Lab rapid SARS CoV 2 Ag, QL IA, respiratory specimen 2022 023 [email or web address], [phone], 3 17:26:52 rapid flu (A+B) 2022 023 [email or web address] 0 [facility], [address] [place] [address], [phone], 3 17:26:53 BMP, serum or plasma 2022 023 [email or web address] 0 [facility], [address] [place] [address], [phone], 3 17:26:53 SARS CoV 2 RNA (COVID-19), QL, cyber instructor-PCR, respiratory specimen [address] [facility], [address] [facility], [place], [address], 4 11:53:13 rapid flu (A+B) 2023 024 [facility], [address] [place] [address], [phone], 4 18:15:50 Referral None recorded. Procedures None recorded. Surgeries None recorded. Imaging None recorded. Medication Orders Solu-Medrol (PF) 125 mg/2 mL solution for injection 2022 023 [email or web address] 0 [facility], [address] [place] [address], [address], 3 17:26:53 ondansetron HCl (PF) 4 mg/2 mL injection solution 2022 023 [email or web address] 0 [facility], [address] [place], [address], 3 17:26:53 ipratropium 0.5 mg-albutero l 3 mg (2.5 mg base)/3 mL nebulizatio n soln 2022 023 [email or web address] 0 [facility], [address] [place], [address], 3 17:26:53 albuterol sulfate 2.5 mg/3 mL (0.083 %) solution for nebulizatio n 2022 023 [email or web address] 0 [facility], [address] [place], [address], 3 17:26:53 sodium chloride 0.9 % intravenous solution 2022 023 [email or web address] 0 [facility], [address] [place] [address], [address], 3 17:26:52 doxycycline hyclate 100 mg capsule 2022 023 [email or web address] 0 [facility], [address] [place] [address], [address], 3 17:27:46 ondansetron 4 mg disintegrat ing tablet 2022 023 [facility], [address] [place] [address], [address], 3 17:30:22 benzonatate 200 mg capsule 2022 023 [facility], [address] [place] [address], [address], 3 17:30:22 doxycycline hyclate 100 mg capsule 2022 023 [facility], [address] [place] [address], [address], 3 17:30:19 prednisone 20 mg tablet 2022 023 [facility], [address] [place] [address], [address], 3 17:30:18 prednisone 10 mg tablet 2023 024 [facility], [address] [place] [address], [address], 4 17:07:19 Patient TargetsNo targets recorded. Patient Instructions Encounter Date Encounter Id Patient Instructions Last Modified By Organization Details Last Modified Time 02/22/2022 [id number] IV lock, initiate* [email or web address] Not available 02/22/2022 17:26:52 Reason for Referral None Reported. Results Created Date Observation Date Name Description Value Unit Range Abnormal Flag Note LastModifiedBy Organization Detail LastModifiedTime 02/15/19 23 02/15/2022 rapid flu (A+B) Flu negati ve Not Available [facility] [address] [place] [address], [phone], 02/15/2022 13:26:32 02/22/19 23 02/22/2022 BMP, serum or plasm a BUN 7 Not Available Main - [facility] [address], [address], 02/22/2022 15:35:55 02/22/19 23 02/22/2022 BMP, serum or plasm a Ca I Ca 1.14 Not Available Main - [address], [address], 02/22/2022 15:35:55 02/22/19 23 02/22/2022 BMP, serum or plasm a CI- 100 Not Available Main - [facility] [address], [address], 02/22/2022 15:35:55 02/22/19 23 02/22/2022 BMP, serum or plasm a CRE 0.7 Not Available Main - [facility] [address], [address], 02/22/2022 15:35:55 02/22/19 23 02/22/2022 BMP, serum or plasm a GLU 127 Not Available Main - [facility] [address], [address], 02/22/2022 15:35:55 02/22/19 23 02/22/2022 BMP, serum or plasm a K+ 3.7 Not Available Main - [facility] [address], [address], 02/22/2022 15:35:55 02/22/19 23 02/22/2022 BMP, serum or plasm a Na+ 139 Not Available Main - [facility] [address], [address], 02/22/2022 15:35:55 02/22/19 23 02/22/2022 BMP, serum or plasm a tCO2 28 Not Available Main - [facility] [address], [address], 02/22/2022 15:35:55 02/22/19 23 02/22/2022 rapid flu (A+B) Flu negati ve Not Available [facility] [address] [place] [address], [address], 02/22/2022 15:35:38 02/22/19 23 02/22/2022 rapid SARS CoV 2 Ag, QL IA, respi rator y speci men rapid SARS CoV 2 Ag, QL IA, respiratory specimen negati ve Not Available [facility] [address] [place] [address], [address], 02/22/2022 15:35:37 Result Notes None recorded. Medical Equipment None Reported. Allergies Allergen ID Allergen Name Allergen Category Reaction Reaction Severity Criticality Documentation Date Start Date Code Code System Note Provider Name and Address Organization Details Recorded Time 1751 Lamictal medicatio n Not available Not available Not available 02/22/202219640 2 Hermila Self MD [address] [place] [address],[address], [place], [address], [employer] 3 15:25:57 1752 Imitrex medicatio n Not available Not available Not available 02/22/2022 [id number] 3 Hermila Self MD [address] [place] [address],[address], [place], [address], [employer] 3 15:26:04 Medications Name Sig Start Date Stop Date Status Note LastModified by Organization Details LastModified Time celecoxib 200 mg capsule TAKE 1 CAPSULE BY MOUTH TWICE A DAY FOR 30 DAYS active Not Available Not Available No t Available cyclobenzapr ine 10 mg tablet TAKE 1 TAB (10 MG) ORALLY 3 TIMES A DAY NEEDED FOR MUSCLE SPASM active Not Available Not Available No t Available methocarbamo l 500 mg tablet TAKE 1 TABLET BY MOUTH TWICE A DAY NEEDED FOR MUSCLE SPASMS active Not Available Not Available No t Available silver sulfadiazine 1 % topical cream APPLY TO BURN TOPICALLY TWICE DAILY FOR ONE MONTH active Not Available Not Available No t Available clonidine HCl 0.1 mg tablet TAKE 1 TABLET BY MOUTH TWICE A DAY active Not Available Not Available No t Available prednisone 10 mg tablet PLEASE SEE ATTACHED FOR DETAILED DIRECTIONS active Not Available Not Available N ot Available doxycycline hyclate 100 mg capsule TAKE 1 CAPSULE BY MOUTH EVERY 12 HOURS WITH MEALS FOR 10 DAYS active Not Available Not Available Not Available nicotine 14 mg/24 hr daily transdermal patch APPLY 1 PATCH TRANSDERMAL LY DAILY active Not Available Not Available No t Available ipratropium 0.5 mg-albuterol 3 mg (2.5 mg base)/3 mL nebulization soln uni dose 1 neb 2022 active Not Available Not Available Not Avai lable albuterol sulfate 2.5 mg/3 mL (0.083 %) solution for nebulization 3 ml after duoneb 2022 active Not Available Not Available Not Avai lable atorvastatin 10 mg tablet TAKE 1 TABLET BY MOUTH EVERY DAY IN THE EVENING active Not Available Not Available No t Available azithromycin 250 mg tablet TAKE 2 TABLETS BY MOUTH TODAY, THEN TAKE 1 TABLET DAILY FOR 4 DAYS active Not Available Not Available No t Available ibuprofen 800 mg tablet TAKE 1 TABLET BY MOUTH EVERY 8 HOURS NEEDED FOR PAIN active Not Available Not Available No t Available benzonatate 200 mg capsule Take 1 capsule 3 times a day by oral route as needed. 2022 active Not Available Not Available Not Avai lable meloxicam 15 mg tablet TAKE 1 TABLET BY MOUTH DAILY active Not Available Not Available Not Available naltrexone 50 mg tablet TAKE 1 TABLET BY MOUTH EVERY DAY active Not Available Not Available No t Available prednisone 20 mg tablet TAKE 2 TABLETS BY MOUTH EVERY DAY FOR 5 DAYS active Not Available Not Available No t Available alendronate 70 mg tablet TAKE 1 TABLET ORALLY EVERY WEEK active Not Available Not Available N ot Available gabapentin 400 mg capsule TAKE 1 CAPSULE BY MOUTH EVERY DAY AT BEDTIME FOR 90 DAYS active Not Available Not Available No t Available clonazepam 1 mg tablet TAKE 1 TABLET BY MOUTH TWICE A DAY active Not Available Not Available No t Available thiamine HCl (vitamin B1) 100 mg tablet TAKE 1 TABLET BY MOUTH DAILY active Not Available Not Available Not Available amlodipine 5 mg tablet TAKE 1 TABLET BY MOUTH EVERY DAY active Not Available Not Available No t Available doxepin 10 mg capsule TAKE 1 CAPSULE BY MOUTH EVERYDAY AT BEDTIME active Not Available Not Available No t Available tramadol 50 mg tablet TAKE 1 TABLET BY MOUTH EVERY 6 HOURS NEEDED FOR PAIN active Not Available Not Available No t Available butalbital-a cetaminophen -caffeine 50 mg-325 mg-40 mg tablet TAKE ONE TABLET BY MOUTH EVERY 6 HOURS active Not Available Not Available No t Available amoxicillin 500 mg tablet TAKE 1 TABLET BY MOUTH EVERY 8 HOURS active Not Available Not Available No t Available oxycodone-ac etaminophen 5 mg-325 mg tablet TAKE 1 TAB ORALLY EVERY 4 TO 6 HOURS NEEDED FOR PAIN X7 DAYS PARTIAL FILL UPON PATIENT REQUEST. active Not Available Not Available No t Available baclofen 10 mg tablet TAKE 1 TABLET BY MOUTH AT BEDTIME active Not Available Not Available No t Available pantoprazole 40 mg tablet,delay ed release TAKE 1 TABLET BY MOUTH TWICE A DAY active Not Available Not Available No t Available lidocaine 5 % topical patch 1 PATCH TOPICAL DAILY LEAVE ON MOST PAINFUL AREA FOR UP TO 12 HRS active Not Available Not Available No t Available nicotine 21 mg/24 hr daily transdermal patch APPLY 1 PATCH TRANSDERMAL DAILY active Not Available Not Available No t Available folic acid 1 mg tablet TAKE 1 TABLET BY MOUTH DAILY active Not Available Not Available Not Available montelukast 10 mg tablet TAKE 1 TABLET BY MOUTH EVERY DAY active Not Available Not Available No t Available morphine ER 15 mg tablet,exten ded release TAKE 1 TABLET BY MOUTH EVERY 12 HOURS FOR 3 DAYS active Not Available Not Available N ot Available sodium chloride 0.9 % intravenous solution 1 L iv over 1 hr given 2022 active Not Available Not Available Not Avai lable cefuroxime axetil 500 mg tablet TAKE 1 TABLET BY MOUTH EVERY 12 HOURS active Not Available Not Available No t Available methylpredni solone 4 mg tablets in a dose pack TAKE 6 TABLETS ON DAY 1 DIRECTED ON PACKAGE AND DECREASE BY 1 TAB EACH DAY FOR A TOTAL OF 6 DAYS active Not Available Not Available No t Available albuterol sulfate HFA 90 mcg/actuatio n aerosol inhaler 2 PUFF INHALED EVERY 6 HOURS NEEDED FOR FOR WHEEZING active Not Available Not Available No t Available hydroxyzine HCl 10 mg tablet TAKE 1 TABLET BY MOUTH 4 TIMES A DAY active Not Available Not Available Not Available ondansetron 4 mg disintegrati ng tablet PLACE 1 TABLET ON TOP OF TONGUE AND ALLOW TO DISSOLVE 3 TIMES A DAY NEEDED active Not Available Not Available No t Available fluoxetine 20 mg capsule TAKE 1 CAPSULE BY MOUTH EVERY DAY FOR DEPRESSIVE DISORDER active Not Available Not Available No t Available fluticasone propionate 50 mcg/actuatio n nasal spray,suspen fran 1 SPRAY INTRANASALL Y DAILY active Not Available Not Available No t Available doxycycline hyclate 100 mg tablet TAKE 1 TABLET BY MOUTH TWICE DAILY active Not Available Not Available No t Available loratadine 10 mg tablet TAKE 1 TABLET BY MOUTH EVERY DAY NEEDED FOR ALLERGY SYMPTOMS active Not Available Not Available No t Available Daily-Ruby tablet TAKE 1 TABLET BY MOUTH EVERY DAY active Not Available Not Available No t Available azithromycin 500 mg tablet TAKE 1 TABLET BY MOUTH DAILYF OR 5 DASYS active Not Available Not Available No t Available guaifenesin 400 mg tablet Take 1 tablet every 4 hours by oral route for 7 days. 2022 active Not Available Not Available Not Avai lable topiramate 50 mg tablet TAKE 2 TABLETS BY MOUTH AT BEDTIME active Not Available Not Available No t Available acamprosate 333 mg tablet,delay ed release TAKE 2 TABLETS 3 TIMES A DAY BY MOUTH FOR 14 DAYS. active Not Available Not Available No t Available ondansetron HCl (PF) 4 mg/2 mL injection solution 4mg slow IV 2022 active Not Available Not Available Not Avai lable cholecalcife rol (vitamin D3) 50 mcg (2,000 unit) capsule TAKE 1 CAPSULE BY MOUTH EVERY DAY active Not Available Not Available No t Available Solu-Medrol (PF) 125 mg/2 mL solution for injection 125 mg iv 2022 active Not Available Not Available Not Avai lable butalbital-a cetaminophen -caffeine 50 mg-300 mg-40 mg capsule TAKE 1 CAPSULE BY MOUTH EVERY 6 HOURS NEEDED active Not Available Not Available No t Available Incruse Ellipta 62.5 mcg/actuatio n powder for inhalation INHALE 1 PUFF INTO LUNGS ONCE DAILY active Not Available Not Available No t Available Trintellix 5 mg tablet TAKE 1 TABLET BY MOUTH EVERY DAY active Not Available Not Available No t Available Trintellix 10 mg tablet TAKE 1 TABLET BY MOUTH EVERY DAY active Not Available Not Available No t Available Trulance 3 mg tablet TAKE 1 TABLET BY MOUTH EVERY DAY active Not Available Not Available No t Available EC-Naproxen 500 mg tablet,delay ed release TAKE 1 TABLET BY MOUTH EVERY 12 HOURS NEEDED FOR 30 DAYS active Not Available Not Available No t Available Wixela Inhub 250 mcg-50 mcg/dose powder for inhalation INHALE 1 PUFF INTO LUNGS TWICE A DAY active Not Available Not Available No t Available Daily-Ruby (with folic acid) 400 mcg tablet TAKE 1 TABLET BY MOUTH EVERY DAY active Not Available Not Available No t Available Vitals Date Recorded Respiratory rate Oxygen saturation Oxygen saturation in Arterial blood by Pulse oximetry Inhaled oxygen flow rate Body temperature Heart rate Systolic blood pressure Diastolic blood pressure Provider Name and Address Organization Details Last Updated DateTime 3 18 /min 92 % 92 % 2 L/min 98.6 [degF] 103 /min 130 mm[Hg] 82 mm[Hg] Not Available [facility] 3 10:56:19 Date Recorded Body weight Body height Respiratory rate Body temperature Heart rate Oxygen saturation Oxygen saturation in Arterial blood by Pulse oximetry Systolic blood pressure Diastolic blood pressure Provider Name and Address Organization Details Last Updated DateTime 4 45566.4 4 g 162.56 cm 16 /min 97.3 [degF] 82 /min 100 % 100 % 115 mm[Hg] 78 mm[Hg] Not Available [facility] 4 16:55:55 Date Recorded Body temperature Heart rate Oxygen saturation Oxygen saturation in Arterial blood by Pulse oximetry Respiratory rate Systolic blood pressure Diastolic blood pressure Provider Name and Address Organization Details Last Updated DateTime 3 99.3 [degF] 120 /min 92 % 92 % 22 /min 114 mm[Hg] 66 mm[Hg] Not Available [facility] 3 15:25:39 Date Recorded Body weight Provider Name an d Address Organization Details Last Updated DateTime 02/22/2022 95153.1 g Kamilah Rouse [address] [facility], [place], [address] - [employer] 02/22/2022 17:39:25 Date Recorded Respiratory rate Oxygen saturation Oxygen saturation in Arterial blood by Pulse oximetry Heart rate Body temperature Body weight Systolic blood pressure Diastolic blood pressure Provider Name and Address Organization Details Last Updated DateTime 3 18 /min 91 % 91 % 110 /min 98.2 [degF] 75670.4 8 g 130 mm[Hg] 78 mm[Hg] Not Available [facility] 3 17:58:42 Date Recorded Respiratory rate Heart rate Oxygen saturation Oxygen saturation in Arterial blood by Pulse oximetry Body temperature Systolic blood pressure Diastolic blood pressure Provider Name and Address Organization Details Last Updated DateTime 3 18 /min 94 /min 98 % 98 % 98.2 [degF] 136 mm[Hg] 79 mm[Hg] Not Available [facility] 3 15:27:16 Social History None recorded. Functional Status None recorded. Mental Status None recorded. Family History Nothing Reported. Medical History No medical history recorded. Gynecological HistoryNo gynecological history recorded. Obstetrics History GPAL:G 0 P 0 0 0 0 Past Encounters Encounter ID Performer Location Encounter Start Date Encounter Closed Date Diagnosis/Indication Diagnosis SNOMED-CT Code Diagnosis ICD10 Code Diagnosis Note [id number] Shivam Claudio MD [facility] - [facility] [address] [place] [phone] 02/15/2022 13:25:36 02/19/2022 09:21:06 Cough 28060455 R05.9 s/p COVID. Mild wheezing. O2 sats stable. Will give an additional neb and prescribe neb treatments . If symptoms persist, recommend visit for possible treatment of COPD exacerbati on [id number] Shivam Claudio MD Main - [facility] [address] [place], [place] [phone] 02/16/2022 14:19:43 02/19/2022 10:07:19 Acute exacerbation of chronic obstructive pulmonary disease 179981309 J44.1 Will treat empiricall y for COPD exacerbati on and add on an expectoran t [id number] Marta Self MD [facility] - [facility] [address] [place] [phone] 02/22/2022 15:25:37 02/27/2022 11:10:24 Acute exacerbation of chronic obstructive pulmonary disease 698128769 J44.1 with possible pneumonia- patient would benefit from a CXR covid and flu now negative twice - likely bacterial infection on top of COPD and possible RSV that we cannot test for(no swabs) that z maryjo did not touch.afte r duoneb increased aeration- kept patient on monitor- HR 120 still/ wheezing still present and improved - meds given as below- zofran helped nausea / given 2nd neb w/ albuterol : felt sl shakey but breathing better- minimal wheezing now/ sat between 86-96( per medic not initially accurate since was sl shakey- got it to go up to 96% RA) not splinting/ HR 127. DId nto desaturate or become more tachycardi c with ambulation . Able to keep doxy down w/ zofran without difficuty. Will refill prednisone x 5 days. Advised to rest - stay well hydrated/ pat looked sl dry so given NS as po intake has been reduced- labs reassuring . Advised Continue duoneb 4 x per day as prescribed / albuterol mdi q4h prn. Guaifenesi n not helping much- offered tessalon- aware insurance does not cover- she requested a few pills w/ refill. May take Tylenol q 6 prn/Keep appt with pulmonolog ist 02/27/22- advised to touch base w. pcp tomorrow- knows our number can call for repeat [facility] visit if she feels she needs it. Red flags reviewed as above [id number] Bj Mcqueen MD [facility] - [facility] [address] [place] [id number] 03/19/2022 17:58:31 03/21/2022 09:18:52 Pain of nose [id number] J34.89 [id number] Rinku Houser MD [facility] - [facility] [address] [place] [id number] 06/21/2022 15:27:15 06/22/2022 14:48:09 Fracture of foot 12138898 S92.902A [id number] Elda Jose MD [facility] - [facility] [address] [place] [id number] 11/12/2022 10:56:13 11/12/2022 22:59:10 Upper respiratory infection 80009023 J06.9 URI sx starting on Saturday. SpO2 88% this am in context of pt forgetting to wear her baseline nocturnal O2, resolved with replacemen t of O2. No sputum expectorat ion and no evidence of airflow obstructio n on exam. Covid and flu negative. For time being no evidence of COPD exacerbati on or bacterial pna. recommend supportive care, including guaifenise n, fluids and rest. Reviewed warning s/sx with pt. Pt and railway switchman agree with plan. [id number] Deacon Easley MD [facility] - [facility] [address] [place] [phone] 08/21/2023 16:55:50 08/21/2023 19:47:16 Acute exacerbation of chronic obstructive pulmonary disease [id number] J44.1 This 57-year-ol d female with COPD has has a cry cough and wheezing for three days with a low grade fever. I ordered a Prednisone taper and recommende d Mucinex or Robitussin . She will continue using her usual inhalers and follow-up with her PCP. The patient agreed with this plan. Health Concerns Section Related Observation LastModified by Organization Detai ls LastModified Time None Recorded Concern Status LastModified by Organization Details LastModified Time None Recorded Advance Directives Directive None Recorded Payers Encounter Date Sequence Insurance Name Policy Number Policy Prather Covered Member ID Prather Member ID Guarantor Name 02/22/2022 1 [id number] - DOS PRIOR TO 2022 - DUAL ELIGIBLE (MEDICARE REPLACEMENT/ADV ANTAGE - HMO) Annie Pak [id number] Annie Pak 03/19/2022 1 [facility] - DOS PRIOR TO 2022 - DUAL ELIGIBLE (MEDICARE REPLACEMENT/ADV ANTAGE - HMO) Annie Pak [id number] Annie Pak 06/21/2022 1 [facility] - DOS PRIOR TO 2022 - DUAL ELIGIBLE (MEDICARE REPLACEMENT/ADV ANTAGE - HMO) Annie Pak [id number] Annie Pak 11/12/2022 1 [id number] - DOS ON OR AFTER 2022 - DUAL ELIGIBLE - ASSISTED OPTIONS AND ONE CARE (MEDICARE REPLACEMENT/ADV ANTAGE - HMO) Annie Pak [id number] Annie Pak 08/21/2023 1 [id number] - DOS ON OR AFTER 2022 - DUAL ELIGIBLE - ASSISTED OPTIONS AND ONE CARE (MEDICARE REPLACEMENT/ADV ANTAGE - HMO) Annie Pak [id number] Annie Pak Notes Date Note Type Note Provider Name and Address Organization Details Recorded Time 02/22/2022 text/html [facility] Nursing Assessment: Reason For Request: URI Patient Reports: History of asthma, increased use of inhaler; COPD; Cough; Shortness of breath with exertion; Pain with inspirationDenies: Cough, fever greater than 2 days Lower extremity swelling COVID Exposure Sputum increase Chief Complaints: Asthma, COPD, Cough, Fever/Chills, Nausea/Vomiting, Shortness of Breath/Dyspnea, URI, Weakness/LethargyPMH: COPD/Asthma, HypertensionAllergies: No KnownComments: Member identified via Member calling in to place a referral. Member seen by [facility] 02/15 & 02/16 for same symptoms, but have still not resolved. Was prescribed Prednisone, zithro and guaifenesin She did have covid 3 weeks ago. 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 Member would like to be re-evaluated. ...................... ...................... ...................... ...................... ...................... ...................... ......... Travel Rn Note: ~ Narrative Pt found nichols to baseline laying on couch in home. Pt presented pale warm and dry with patent airway and tachynepic. Lung sounds present with wheezing in all vaughn. Pt given DUONEB. Pt tested negative for POC covid and flu. 20g IV was established in the left AC. Labs drawn. Pt given 1000ml NS, 4mg Zofran, 125 methlyprednisone IVP. Pt given 2.5m albuterol. Pt reports and displays improvement. Pt given PO doxy 100mg. Pt reports improvement. prescriptions sent pharmacy. Pt encouraged to follow up with PCP. ...................... ...................... ...................... ...................... ...................... ...................... ......... Disposition: Fulfilled SEGMD: as above: Patient has hx asthma/COPD/ aspiration pneumonia last year and HTN. Seen 02/15 and 02/16 by [facility]- covid and flu negative- given zpak/guaifenesin 400 mg q 4 hr/ prednisone on 02/16- she finished them on . ALso given duoneb 4 xp er day which she has been taking along w/ albuterol MDI Has harsh dry cough still/ SOB/ some pleuritic CP w/ deep inspiration/ cough Could not get appt with her manager asset til next . Denies sweats or temp has had little po/ nausea present- no vomiting or diarrhea. Marta Self MD [address] [facility],[address], [place], [address], [employer] 02/22/2022 17:51:09 03/19/2022 text/html CRC Nursing Assessment: Chief Complaints: URI PMH: COPD/Asthma, Hypertension Comments: Member calling for [facility] visit for eval nasal congestion and burning in nostrils x 3-4 days attempt Hayden gel with some relief deny fevers cont with chills recent treatment for pneumonia Bj Mcqueen MD [address] [place] [address],[address], [place], [address], [employer] 03/19/2022 18:12:52 06/21/2022 text/html This was a super vised home visit with railway switchman Suzanne Morelos. CRC Nursing Assessment: Reason For Request: Pt states 2 hours ago, went to step off stoop, took a fall, twitsted outfoot, rolled, hit that same knee. Left foot severely swollen after 20m, limping around, 7 out 10 pain, shooting up back of calf and in the front to her knee. Chief Complaints: Pain, Falls PMH: COPD/Asthma, Hypertension Comments: Member calling in to place a referral, identified via /name. Member who lost balance on her stoop, rolled her outer left foot and banged her left knee. Member able to bear weight but is in extreme pain, shoots up her leg to buttock. Foot is swollen and turning a light purple/bruise, member is elevating and applying ice, it is very tender to touch. Member denies head strike and is not on any blood thinners. Member has no ride to clinic and would like to be evaluated by [facility]. ...................... ...................... ...................... ...................... ...................... ...................... ......... Travel Rn Note From Suzanne Morelos: Dispatched Urgent to the above patient with a complaint of pain secondary to a fall at home. Upon arrival, Pt found laying on couch with obvious pain. Patient states she was attempting to go out on to her porch when she tripped down the one step causing her to land on her left foot/ankle. Patient states she believes she rolled her ankle and ended up sitting on it. Reports 10/10 pain to extremity with any touch or movement. States she has taken APAP prior to [facility] arrival. Patient rested and iced extremity prior to our arrival. Patient noted to have swelling and bruising to the lateral aspect of the left dorsal foot with the contusion noted to be roughly [id number]. Pedal pulses present. Pt reports secondary complaint of left knee pain due to the position she landed in. Pt denies head, neck, or back pain. Pt denies LOC. Vitals as noted. Pt denies any additional complaints at this time. No other gross or obvious signs of trauma noted. [facility] consulted and recommends Pt be evaluated at an Urgent Care for X-Rays R/O Fx. Pt states the local Urgent Care closes soon and she would need to go to local ED. Transport via local EMS offered to Pt. Pt states she will drive herself to local ED AMA. Completed by Ta Aguilera MA [id number] ...................... ...................... ...................... ...................... ...................... ...................... ......... Disposition: Fulfilled Rinku Houser MD [address] [place] [address],[address], [place], [address], [employer] 06/21/2022 16:50:32 11/12/2022 text/html CRC Nursing Assessment: Reason For Request: URI Chief Complaints: Shortness of Breath/Dyspnea, URI, Cough, Fever/Chills PMH: COPD/Asthma, Hypertension Comments: verified identity / address Member has been sick for 3 days, cough, hoarse voice, coughing up green sputum yesterday, now clear. O2 level was low this am 88%, o2 had fallen off but she put it back on and now in the 90's only wears o2 at HS. Member had a fever today also ? 102.1 last check was 101. Took a COVID test negative. Member c/o rib pain ...................... ...................... ...................... ...................... ...................... ...................... ......... Travel Rn Note From Artis Kate: Dispatched to the call address for the female not feeling well. Pt states for about 3 days now she has had a cough, headache, body aches and just feeling run down. Pt states she has been able to eat and drink without issue and denies n/v/d. She advises she has taken Tylenol with good effect. She states she had a fever of 102 this morning but took 1g of Tylenol and it has come down. Pt states she was having a productive cough the last couple of days but this morning it seems to have subsided. Pt was found sitting on living room chair, CAOx4, airway open and patent, breathing non labored, able to speak in full sentences, -JVD, -HEENT, skin PWD with good turgor, abd soft non tender/distended, pupils PERRL, +CMSx4, lung sounds clear and equal bilaterally. [facility] consulted. Pt advised to treat symptoms with OTC medications as needed, rest and stay hydrated. Red flags discussed. ALL times are approx. ...................... ...................... ...................... ...................... ...................... ...................... ......... Disposition: Fulfilled Elda Jose MD [address] [place] [address],[address], [place], [address], [employer] 11/12/2022 16:08:23 08/21/2023 text/html CRC Nurse Triage Notes (Tara Cramer): Reason For Request: Pt reporting severe cough>chills>nausea>te mperature that has been on/off>headache>states yesterdays covid test was negative>some sob due to cough, nose is stuffy Chief Complaints: Cough, Fever/Chills PMH: COPD/Asthma, Hypertension Comments: Project Superintendent verified the member's name//address and phone number. Member is a 57 yr old female/ a/03 PMH > HTN > asthma allergies noted in fariba Member has a cough / chills , temp for 3 days, 101.5 . Member is taking tylenol, temp goes down. Member also has poison CHAVA for over a week, on her legs. Member has inhalers Education provided on the response time and the member was advised to monitor reported s/s and seek emergency treatment if needed Travel Rn POC Test Results from [facility] - [facility] Rapid COVID antigen (17:31:46) COVID: - Rapid influenza antigen (17:31:48) Flu: - ...................... ...................... ...................... ...................... ...................... ...................... ......... Travel Rn Note From Leon Ramirez: [facility] visit for female patient with cough fever and chills. Pt presents conscious and alert. Pt reports onset of symptoms 3 days ago starting with fever and last 24 hours with unproductive cough. Fever reported as high as 101.5 and pt has been taking tylenol. V/S taken as listed. Pt afebrile. Lung sounds clear though pt was frequently coughing during visit. Pt swabbed for flu and covid both negative. Pt has not used inhaler today and noted it was empty though she reports having refills at the pharmacy. Pt was recently discontinued from incruse inhaler. Consulted with [facility] [place]. Easley who ordered 60 mg of oral prednisone given on scene. Pt instructed to refill inhaler and warehouse order picker some OTC mucinex as well. Reviewed red flags for ED. Patient education provided. ...................... ...................... ...................... ...................... ...................... ...................... ......... Disposition: Fulfilled Deacon Easley MD [address] [place] [address],[address], [place], [address], [employer], [facility] 08/21/2023 17:32:43 OBGyn Episode No OBEpisode recorded.
--- OUTSIDE RECORDS SUMMARY | 2024-03-17 12:19 | XMS_ITS | Clinical Summary ---
Author Organization [facility] Address [address] [place] [address] Care Team Providers Care Sampler Ovens Name Role Phone Sandi Andrade MD Primary Care Provider [phone] Allergies Active Allergy Reactions Criticality Noted Date Comments Sumatriptan 01/15/2022 Medications Medication Sig Dispensed Refills Start Date End Date Status montelukast (SINGULAIR) 10 mg tablet Take 1 tablet (10 mg total) by mouth 1 (one) time each day. Active gabapentin (NEURONTIN) 400 mg capsule TAKE 1 CAPSULE BY MOUTH EVERY DAY AT BEDTIME FOR 90 DAYS 11/16/2023 Active Wixela Inhub 250-50 mcg/dose diskus inhaler 1 puff 2 (two) times a day. Active clonazePAM (KlonoPIN) 1 mg tablet Take 1 tablet (1 mg total) by mouth 2 (two) times a day. Active cholecalciferol (VITAMIN D-3) 50 mcg (2,000 unit) capsule Take 1 capsule (2,000 Units total) by mouth 1 (one) time each day. Active atorvastatin (LIPITOR) 10 mg tablet Take 1 tablet (10 mg total) by mouth 1 (one) time each day in the evening. 01/28/2024 Active alendronate (FOSAMAX) 70 mg tablet TAKE 1 TABLET ORALLY EVERY WEEK 11/02/2023 Active pantoprazole (PROTONIX) 40 mg EC tabletIndications: Gastroesophageal reflux disease without esophagitis Take 1 tablet (40 mg total) by mouth 2 (two) times a day. 180 each 3 02/21/2024 02/20/2025 Active pantoprazole (PROTONIX) 40 mg EC tabletIndications: Gastroesophageal reflux disease without esophagitis TAKE 1 TABLET BY MOUTH TWICE A DAY 180 tablet 1 01/15/2024 02/21/2024 Discontinued (Reorder) Encounters Date Type Department Care Team Description 02/21/2024 1:45 PM EST Office Visit Gastroenterology - [address] [place] [address] Sandi Cloud MD Gastroesophageal reflux disease with esophagitis without hemorrhage (Primary Dx); Chronic constipation; Gastroesophageal reflux disease without esophagitis from Last 3 Months Surgical History Surgery Date Site/Laterality Comments TOTAL ABDOMINAL HYSTERECTOMY ESOPHAGOGASTRODUODENOSCOPY 01/03/2022 HH, grade 3 esophagitis ESOPHAGOGASTRODUODENOSCOPY 11/19/2018 esophagitis COLONOSCOPY W/ POLYPECTOMY 11/19/2018 benign poylp- 10 yr recall Medical History Medical History Date Comments Dysphagia GERD (gastroesophageal reflux disease) Aspiration pneumonia (CMS/HCC) Chronic constipation Alcohol use disorder COPD (chronic obstructive pulmonary disease) (CM S/HCC) Bipolar 1 disorder (CMS/HCC) Obesity SUNSHINE (obstructive sleep apnea) HTN (hypertension) Social History Tobacco Use Types Packs/Day Years [...] file Not on file Not on file Obstetrics History Last Filed Vital Signs Vital Sign Reading Time Taken Comments Blood Pressure - - Pulse - - Temperature - - Respiratory Rate - - Oxygen Saturation - - Inhaled Oxygen Concentration - - Weight 94.8 kg (209 lb) 02/21/2024 1:49 PM EST Height 162.6 cm (5' 4 ) 02/21/2024 1:49 PM EST Body Mass Index 35.87 02/21/2024 1:49 PM EST Plan of Treatment Health Maintenance Due Date Last Done Comments Breast Cancer Screening 1965 Cervical Cancer Screening: Pap Smear 11/05/1984 Colorectal Cancer Screening: Colonoscopy 01/10/2022 Depression Screening 01/10/2022 HIV Screening 01/10/2022 Hepatitis C Screening 01/10/2022 Medicare Annual Wellness Visit 01/10/2022 Social Influencers of Health Screening 01/10/2022 COVID-19 Vaccine ( season) 2023 11/28/2022, 11/02/2021, 07/19/2021, Additional history exists Influenza Vaccine (#1) 2023 3, 11/02/2021, 03/13/2021, Additional history exists DTaP,Tdap,and Td Vaccines (4 - Td or Tdap) 07/15/2031 07/14/2021, 09/01/2019, 09/13/2009 RSV Immunization Patients 60+ Years Old (1 - 1-dose 75+ series) 11/05/2038 Zoster Vaccines Completed 07/19/2021, 01/11, 04/28/2018 HIB Vaccines Aged Out No longer eligi ble based on patient's age to complete this topic HPV Vaccines Aged Out No longer eligi ble based on patient's age to complete this topic Hepatitis A Vaccines Aged Out No long er eligible based on patient's age to complete this topic Hepatitis B Vaccines Aged Out No long er eligible based on patient's age to complete this topic IPV Vaccines Aged Out No longer eligi ble based on patient's age to complete this topic MMR Vaccines Aged Out No longer eligi ble based on patient's age to complete this topic Meningococcal ACWY Vaccine Aged Out N o longer eligible based on patient's age to complete this topic Pneumococcal Vaccine: Pediatrics (0 to 5 Years) and At-Risk Patients (6 to 64 Years) Aged Out No longer eligible based on patient's age to complete this topic RSV Immunization Patients Under 20 months Aged Out No longer eligible based on patient's age to complete this topic Varicella Vaccines Aged Out No longer eligible based on patient's age to complete this topic Care Teams Sampler Ovens Relationship Specialty Start Date End Date Sandi Andrade MD [address] [facility] [place] [address] PCP - General Internal Medicine 01/01/24
== END 2024-03-17 12:57 | disposition home or self-care (01) ==
PROVIDERS: PCP Internal Medicine
DX: M18.11 Unilateral primary osteoarthritis of first carpometacarpal joint, right hand (principal)
CPT/HCPCS: 20600; 99213

== ENCOUNTER → 2024-03-17 11:57 | Outpatient (BNV) | payer OTHER, SELFPAY | PROVIDERS: PCP Internal Medicine; Visit Provider Radiology Diagnostic Radiology | DX: M79.641 Pain in right hand (principal) | CPT/HCPCS: 73130 ==

== ENCOUNTER 2024-04-20 13:46 | Outpatient (AMB) | payer OTHER, SELFPAY ==
[2024-04-20 13:54] VITALS: BP 120/80; PULSE 99; O2SAT 95; BMI 36.1
--- NOTE | 2024-04-20 13:54 | MHC.OFFVIS ---
Vital Signs 04/20/24 13:54 Height 5 ft 4 in Weight 210 lb 8.663 oz BMI 36.1 BP 120/80 Blood Pressure Location Lt brachial Position Sitting Pulse 99 Pulse Source Pulse Oximeter Pulse Oximetry (%) 95 Oxygen Delivery Method Room Air Intake Visit Reasons: COPD follow-up Intake Note: pt is here for follow up and states her breathing is good, she has been exercising, but she is still aspirating at times, and some short of breath with sitting and talking. Poultry Farmworker Required: No Allergies sumatriptan [From IMITREX] Allergy (Intermediate, Verified 04/20/24 14:17) RASH Medication List - Last Reconciled 04/20/24 by Tremaine Murphy MD albuterol sulfate 90 mcg/actuation 2 puffs inhalation Q6H PRN alendronate (Fosamax) 70 mg PO QWEEK atorvastatin 10 mg PO QPM cholecalciferol (vitamin D3) 50 mcg PO DAILY clonazepam 1 mg PO BID disposable gloves As directed-size medium fluticasone propion-salmeterol 250-50 mcg/dose (Wixela Inhub) 1 inh PO BID fluticasone propionate 50 mcg/actuation 1 spray intranasal DAILY gabapentin 400 mg PO BEDTIME incontinence pad, liner, disp As directed (4 pks per month) [Kneeling Scooter As directed] loratadine 10 mg PO DAILY PRN montelukast 10 mg PO DAILY naltrexone microspheres ER (Vivitrol) mg IM pantoprazole 40 mg PO BID Do you need a note to return to daycare/school/sports/work: No HPI HPI COPD follow-up: Details: Annie is 58 years old female coming here for follow-up for her COPD and nocturnal hypoxemia. She claims that breathing verdugo she is doing. Well and has remained stable Her main complaint was that she still gets frequent bouts of dysphagia and feels as if the food is going into her lungs. This is a chronic problem and she has had workup including barium swallow in the past. This happens usually when she is eating foods with containing Peas and corn. She is using O2 2 L/minute at night for nocturnal hypoxemia and feels good. During the daytime her breathing has been well controlled without much cough or wheezing. [facility] Medical History Nocturnal hypoxemia Restrictive lung disease Respiratory failure with hypoxia Musculoskeletal pain Anxiety and depression Ex-smoker Allergic rhinitis Cataract Vitamin B12 deficiency Vitamin D insufficiency GERD (gastroesophageal reflux disease) ETOH abuse Migraine SUNSHINE on CPAP COPD (chronic obstructive pulmonary disease) Surgical History History of esophagogastroduodenoscopy (EGD) H/O colonoscopy S/P PRINCESS (total abdominal hysterectomy) History of total hysterectomy Family History Father Alcoholic Mother Diabetes mellitus HTN (hypertension) Mental health disorder Brother Substance use disorder Mental health disorder Brother Substance use disorder Daughter Mental health disorder Brother Substance use disorder Social History Household Members: Spouse Housing: House Do you presently have visiting nurse or other home services: No Alcohol intake: former Comment: all counts correct Patient Tobacco Use Status: Former Tobacco user Tobacco use type: Cigarette e-Cigarette/Vaping Use: Never Used Second Hand Smoke Exposure: No Substance Use Type: Crack/Cocaine Advance Directives Date on File: 02/28/22 service: No Current occupational status: disabled 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 Cognitive needs: No Hearing needs: No Vision needs: Yes Review of Systems Const All systems reviewed & are unremarkable except as noted in HPI and below Eyes Reports no additional complaints ENT Reports nasal congestion (mild off and on ) Card Reports chest pain, Denies irregular heart rhythm, Denies leg edema and Reports dyspnea on exertion Resp Reports cough (mild off and on .), Reports dyspnea on exertion and Denies wheezing GI Reports abdominal pain (non specific , being worked up ) Aller/Immun Denies wheezing Physical Exam Vital Signs: Last Vital Signs Pulse 99 04/20/24 13:54 BP 120/80 04/20/24 13:54 Pulse Ox 95 04/20/24 13:54 Oxygen Delivery Method Room Air 04/20/24 13:54 BMI result Body Mass Index 36.1 Const Other: Anxious and, slightly short of breath during conversation. General: no acute distress, alert and awake Orientation/consciousness: patient oriented x3 HEENT Head: Yes normal to inspection General nose exam: No nasal polyps present and No nasal discharge present Face and sinus: Yes sinuses nontender Mouth: oropharynx normal Throat: Yes posterior oropharynx normal Eyes General: appearance normal, both eyes and all related structures Neck Neck: Yes normal visual inspection, Yes no lymphadenopathy, Yes trachea midline and Yes no JVD Thyroid: Thyroid normal Chest Chest palpation & inspection: normal inspection of the chest, normal palpation of entire chest wall and no tenderness Resp Other: Percussion note is resonant, breath sounds are distant especially over the basilar areas. No Wheezes or crepitations are heard today. Cardio Palpation: normal PMI Rate: regular rate Rhythm: regular rhythm Heart sounds: no gallops and no murmurs Peripheral pulses: Peripheral pulses 2+ throughout GI Palpation (GI): Soft to palpation, nontender, No hepatosplenomegaly present and no masses Auscultation: normal bowel sounds Back/Spine/Pelvis Thoracic/Lumbar Spine: thoracic and lumbar spine normal to inspection and thoraco-lumbar ROM limited Skin General skin exam: no rashes or lesions noted Neuro General: patient oriented x3 and no focal motor deficits Cranial nerves: Yes CN's II-XII intact bilaterally Extrem General: Yes normal to inspection, Yes no clubbing, cyanosis or edema and Yes no calf tenderness Psych Speech and movement: Normal speech and movement present Affect: Anxious affect present Assessment & Plan Assessment & Plan (1) COPD (chronic obstructive pulmonary disease): Comment: PFT 09/2018, Mild obstructive Airways disorder . SPIROMETRY IN 2021 SHOWED ONLY MODERATE DEGREE OF RESTRICTIVE PULMONARY DISORDER. BUT SHE HAS BEEN USING ADVAIR WELL INCRUSE ELLIPTA REGULARLY. SPIROMETRY ON HER LAST VISIT SHOWED MILD RESTRICTIVE PULMONARY DISEASE AND NO EVIDENCE OF OBSTRUCTIVE AIRWAY DISORDER. SHE CLAIMS THAT SHE DEVELOPS SYMPTOMS OF ASTHMA WHEN SHE DOES NOT USE THE INHALERS. OVERALL SHE HAS BEEN STABLE IN THE LAST 6 MONTHS. Code(s): J44.9 - Chronic obstructive pulmonary disease, unspecified Category: Medical Plan: OKAY TO CONTINUE USING ADVAIR 250-51 INHALATION B.I.D.. AND USE ALBUTEROL 2 PUFFS Q 6 HOURS ONLY P.R.N. (2) Ex-smoker: Comment: She has not smoked for the last 2 YEAR and is determined not to go back to smoking. Does not use nicotine patches at present She does vape 2 to 3 times a day, because of stress. Code(s): Z87.891 - Personal history of nicotine dependence Category: Social Hx Plan: AGAIN TOLD HER NOT TO OVER USE THE VAPES. (3) Restrictive lung disease: Comment: MILD TO MODERATE RESTRICTIVE LUNG DISORDER IS RELATED TO GROSS OBESITY Code(s): J98.4 - Other disorders of lung Category: Medical Plan: TRY TO LOSE WEIGHT. TRY TO DO DEEP BREATHING EXERCISES A FEW TIMES EVERY DAY. (4) Nocturnal hypoxemia: Comment: SHE HAS CHRONIC HYPOXEMIA HER RECENT OVERNIGHT OXIMETRY RECORDING DID CONFIRMED PRESENCE OF NOCTURNAL HYPOXEMIA Code(s): G47.34 - Idiopathic sleep related nonobstructive alveolar hypoventilation Category: Medical Plan: USE O2 2 L/MINUTE AT NIGHT Coding Level of Care Code Est Pt Level 3 (81984) Diagnoses COPD (chronic obstructive pulmonary disease) J44.9 Ex-smoker Z87.891 Restrictive lung disease J98.4 Nocturnal hypoxemia G47.34
--- OUTSIDE RECORDS SUMMARY | 2024-04-20 15:36 | XMS_ITS | Clinical Summary ---
Author Organization [employer] Address [address] [place] [address] Care Team Providers Care Fire Officer Name Role Phone Sandi Andrade MD Primary Care Provider [phone] Allergies Active Allergy Reactions Criticality Noted Date Comments Sumatriptan 01/15/2022 Medications montelukast (SINGULAIR) 10 mg tablet Take 1 [...] 11/02/2023 Active pantoprazole (PROTONIX) 40 mg EC tabletIndication s:Gastroesophage al reflux disease without esophagitis Take 1 tablet (40 mg total) by mouth 2 (two) times a day. 180 each 3 02/21/2024 02/20/19 26 Active Encounters Date Type Department Care Team Description 02/21/2024 1:45 PM EST Office Visit Gastroenterology - [address] [facility] [address] [place] [address] Sandi Cloud MD Gastroesophageal reflux [...] drink = 0.6 oz pur e alcohol) Comments Unknown Sex and Gender Information Value Date Recorded Sex Assigned at Not on file Legal Sex Female 2:52 PM EST Gender Identity Not on file Sexual Orientation Not on file Occupation Industry Job Start Date Job End Date Disabled Not on file Not on file Not [...] 1965 Cervical Cancer Screening: Pap Smear 11/05/1984 Pneumococcal Vaccine: 50+ Years (1 of 1 - PCV) 11/05/2013 Colorectal Cancer Screening: Colonoscopy 01/10/2022 Depression Screening [...] patient's age to complete this topic Meningococcal B Vacine Aged Out No lo nger eligible based on patient's age to complete [...] on patient's age to complete this topic Insurance [facility] MEDICARE Member Subscriber Plan / Payer (Ef fective 2016-Present) Name:Annie Pak Relation to Subscriber:Self Name:Annie Pak Payer ID:[id number] Group ID:[id number] Type:Not on file Address: [address] [place] [address] Care Teams Fire Officer Relationship Specialty Start Date End Date Sandi Andrade MD [address] [place] [address] PCP - General Internal Medicine 01/01/24
== END 2024-04-20 14:53 | disposition home or self-care (01) ==
PROVIDERS: PCP Internal Medicine; Visit Provider Internal Medicine
DX: J44.9 Chronic obstructive pulmonary disease, unspecified (principal); Z87.891 Personal history of nicotine dependence; J98.4 Other disorders of lung; G47.34 Idiopathic sleep related nonobstructive alveolar hypoventilation
CPT/HCPCS: 99213

== ENCOUNTER → 2024-04-20 13:46 | Outpatient (BNVA) | payer OTHER, SELFPAY | PROVIDERS: PCP Internal Medicine; Visit Provider Internal Medicine | DX: J44.9 Chronic obstructive pulmonary disease, unspecified (principal); J98.4 Other disorders of lung; R09.02 Hypoxemia; R13.10 Dysphagia, unspecified; G47.34 Idiopathic sleep related nonobstructive alveolar hypoventilation; Z99.81 Dependence on supplemental oxygen; Z87.891 Personal history of nicotine dependence | CPT/HCPCS: 99212 ==

== ENCOUNTER 2024-04-27 09:40 | Outpatient (AMB) | payer OTHER, SELFPAY ==
[2024-04-27 09:44] VITALS: BP 118/80; PULSE 82; TEMP 36.8; O2SAT 97; BMI 36.0
--- NOTE | 2024-04-27 09:44 | MHC.OFFWIV ---
Intake Vital Signs 04/27/24 09:44 Height 5 ft 4 in Weight 210 lb BMI 36.0 BP 118/80 Blood Pressure Location Lt brachial Position Sitting Pulse 82 Pulse Source Pulse Oximeter Temp 98.3 F Temp Source Oral Pulse Oximetry (%) 97 Oxygen Delivery Method Room Air Intake Visit Reasons: EP fatigue, weakness, upset stomach Intake Note: pt is here fatigue, weakness, and GI upset, leg weakness Patient Tobacco Use Status: Former Tobacco user Accompanied by: Self / Same As Patient Allergies sumatriptan [From IMITREX] Allergy (Intermediate, Verified 04/27/24 09:45) RASH Do you need a note to return to daycare/school/sports/work: No HPI HPI Comments History of Present Illness Details 58 y/o female patient who presents to the walk in clinic with c/o Generalized fatigue and body aches for 4-5 days. Reports pain on her lower extremities with walking or getting up from sitting position. Denies fevers. chills, nausea or vomiting. Denies Abdominal pain, or Diarrhea. Denies any recent life stressors, but endorse not sleeping well at night. H/o Alcohol abuse, currently goes to AA. H/o Mental health disorder - Bipolar and sees Therapist. Pt has an appointment with PCP in May, and needs Lab work. [facility] Medical History (Updated 04/27/24 @ 10:24 by Guillermina Howell NP) Weakness generalized Acute respiratory disease Nocturnal hypoxemia Restrictive lung disease Respiratory failure with hypoxia Musculoskeletal pain Anxiety and depression Ex-smoker Allergic rhinitis Cataract Vitamin B12 deficiency Vitamin D insufficiency GERD (gastroesophageal reflux disease) ETOH abuse Migraine SUNSHINE on CPAP COPD (chronic obstructive pulmonary disease) Surgical History History of esophagogastroduodenoscopy (EGD) H/O colonoscopy S/P PRINCESS (total abdominal hysterectomy) History of total hysterectomy Family History Father Alcoholic Mother Diabetes mellitus HTN (hypertension) Mental health disorder Brother Substance use disorder Mental health disorder Brother Substance use disorder Daughter Mental health disorder Brother Substance use disorder Social History Household Members: Spouse Housing: House Do you presently have visiting nurse or other home services: No Alcohol intake: former Comment: all counts correct Patient Tobacco Use Status: Former Tobacco user Tobacco use type: Cigarette e-Cigarette/Vaping Use: Never Used Second Hand Smoke Exposure: No Substance Use Type: Crack/Cocaine Advance Directives Date on File: 02/28/22 service: No Current occupational status: disabled 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 Cognitive needs: No Hearing needs: No Vision needs: Yes Review of Systems Const All systems reviewed & are unremarkable except as noted in HPI and below Physical Exam Vital Signs: Last Vital Signs Temp 98.3 F 04/27/24 09:44 Pulse 82 04/27/24 09:44 BP 118/80 04/27/24 09:44 Pulse Ox 97 04/27/24 09:44 Oxygen Delivery Method Room Air 04/27/24 09:44 BMI result Body Mass Index 36.0 Const General: cooperative and no acute distress Nutritional Appearance: overweight Orientation/consciousness: patient oriented x3 HEENT Head: Yes normocephalic Ears: external ears normal and TM abnormal obstructed by cerumen General nose exam: Normal external nose present Face and sinus: Yes sinuses nontender Mouth: moist mucous membranes Throat: Yes uvula midline Resp Effort & Inspection: normal respiratory effort and able to speak in complete sentences Auscultation: clear to auscultation bilaterally, no crackles, no rales, no rhonchi and no wheezes Cardio Heart sounds: S1 normal heart sound present and S2 normal heart sound present Neuro General: patient oriented x3, gait normal and moves all extremities Psych Speech and movement: Normal speech and movement present Assessment & Plan Assessment & Plan (1) Acute respiratory disease: Code(s): J06.9 - Acute upper respiratory infection, unspecified Plan: Ordered SARs (2) Weakness generalized: Code(s): R53.1 - Weakness Plan: No clear Etiology for her symptoms. This could be related to her Mental health, though she denies any recent changes in her life. Advised to f/u with PCP regarding Lab work. She does have an appointment in May. (3) Fatigue: Code(s): R53.83 - Other fatigue Qualifiers: Fatigue type: unspecified Qualified Code(s): R53.83 - Other fatigue Plan: No clear Etiology for her symptoms. This could be related to her Mental health, though she denies any recent changes in her life. Advised to f/u with PCP regarding Lab work. She does have an appointment in May. Orders: Orders SARS-CoV2/FLU/RSV Today J06.9 - Acute upper respiratory infection, unspecified Coding Level of Care Code Est Pt Level 4 (63187) Diagnoses Acute respiratory disease J06.9 Weakness generalized R53.1 Fatigue, unspecified type R53.83 Fatigue type: unspecified Time Spent (min) 20
--- OUTSIDE RECORDS SUMMARY | 2024-04-27 10:34 | XMS_ITS | Clinical Summary ---
Author Organization [employer] Address [address] [place] [address] Care Team Providers Care Repair Servicer Name Role Phone Sandi Andrade MD Primary Care Provider Allergies Active Allergy Reactions Criticality Noted Date [...] Office Visit Gastroenterology - [address] [facility] [address] [place] [address] Sandi Cloud MD Gastroesophageal reflux [...] patient's age to complete this topic Insurance [facility] MEDICARE Member Subscriber Plan / Payer (Ef fective 2016-Present) Name:Annie Pak Relation to Subscriber:Self Name:Annie Pak Payer ID:[id number] Group ID:[id number] Type:Not on file Address: [address] [place] [address] Care Teams Repair Servicer Relationship Specialty Start Date End Date Sandi Andrade MD [address] [place] [address] PCP - General Internal Medicine 01/01/24
--- OUTSIDE RECORDS SUMMARY | 2024-04-27 10:35 | XMS_ITS | Data Portability ---
Author Organization [employer] [place] [employer] Address [address] [place] [phone] Care Team Providers Care Perforating Machine Operator Name Role Phone HIM CCA OTHER Assessment Encounter Date Assessment Date Assessment LastModified by Organization Details LastModified Time 02/22/2022 02/22/2022 I provided real -time medical direction via phone for this encounter, and was available for additional phone based assistance as needed. I have reviewed and agree with the Assessment and Plan as documented by the Stain Sprayer. Patient given the opportunity to ask questions. Advised low threshold for ER: if develops increasing or changing CP/SOB/turning blue/uncontrolle d n/v or black/bloody emesis or stool/ AMS/ syncope/ hi fever un responsive to APAP to call 911- verbalized understanding of instructions [email or web address] Not available 02/22/2022 17:48:51 03/19/2022 03/19/2022 service [...] assessment and plan as documented by the unit nurse. I provided real time medical direction for this encounter and was immediately available to provide additional phone based assistance as needed. History as noted by unit nurse. Pt reports that earlier today while walking [...] also need to follow up with a supervisor decorating/ortho pedic loan specialist after the diagnosis is made and she can get a referral from the ED or urgent care. [email or web address] Not available 06/21/2022 16:50:16 Plan of Treatment Reminders Order Date Submit Date Provider Last Modified By Organization Details Last Modified Time Details Appointments None recorded. Lab SARS CoV 2 RNA (COVID-19), QL, manager pipeline-PCR, respiratory specimen 2023 024 [email or web address] [facility] (Centralized Electronic Ordering - All Locations), Patient Can Go To The Location Of Their Choice, [id number] 4 11:53:13 rapid flu (A+B) 2023 024 FARIBA [facility], [address] [place] [address], [phone], 4 18:15:50 rapid SARS CoV 2 Ag, QL IA, respiratory specimen 2022 023 [email or web address] [facility], [address] [place] [address], [phone], 3 17:26:52 rapid flu (A+B) 2022 023 [email or web address] 0 [facility], [address] [place] [address], [id number], 3 17:26:53 BMP, serum or plasma 2022 023 [email or web address] 0 [facility], [address] [place] [address], [address], 3 17:26:53 Referral None recorded. Procedures None recorded. Surgeries None recorded. Imaging None recorded. Medication Orders prednisone 10 mg tablet 2023 024 FARIBA [facility]2339, [address] [place] [address], [address], 4 17:07:19 Solu-Medrol (PF) 125 mg/2 mL solution for injection 2022 023 [email or web address] 0 [facility] #2339, [address] [place] [address], [address], 3 17:26:53 ondansetron HCl (PF) 4 mg/2 mL injection solution 2022 023 [email or web address] 0 [facility] #2339, [address] [facility], [place], [address], 3 17:26:53 ipratropium 0.5 mg-albutero l 3 mg (2.5 mg base)/3 mL nebulizatio n soln 2022 023 [email or web address] 0 [facility] #2339, [address] [place] [address], [address], 3 17:26:53 albuterol sulfate 2.5 mg/3 mL (0.083 %) solution for nebulizatio n 2022 023 [email or web address] 0 [facility] #2339, [address] [facility], [place], [address], 3 17:26:53 sodium chloride 0.9 % intravenous solution 2022 023 [email or web address] 0 [facility] [address] [place] [address], [address], 3 17:26:52 doxycycline hyclate 100 mg capsule 2022 023 [email or web address] 0 [facility] [address] [place] [address], [address], 3 17:27:46 ondansetron 4 mg disintegrat ing tablet 2022 023 [facility] [address] [place] [address], [place], [address], 3 17:30:22 benzonatate 200 mg capsule 2022 023 [facility], [address] [place] [address], [address], 3 17:30:22 doxycycline hyclate 100 mg capsule 2022 023 [facility] [address] [place] [address], [address], 3 17:30:19 prednisone 20 mg tablet 2022 023 [facility] [address] [place] [address], [address], 3 17:30:18 Patient TargetsNo targets recorded. Patient Instructions Encounter Date Encounter Id Patient Instructions Last Modified By Organization Details Last Modified Time 02/22/2022 [id number] IV lock, initiate* [email or web address] Not available 02/22/2022 17:26:52 Reason for Referral None Reported. Results Created Date Observation Date Name Description Value Unit Range Abnormal Flag Note LastModifiedBy Organization Detail LastModifiedTime 02/15/19 23 02/15/2022 rapid flu (A+B) Flu negati ve Not Available Main - [facility] ed [address] [place] [address], [address], 02/15/2022 13:26:32 02/22/19 23 02/22/2022 BMP, serum or plasm a BUN 7 Not Available Main - [facility] [address], [address], 02/22/2022 15:35:55 02/22/19 23 02/22/2022 BMP, serum or plasm a Ca I Ca 1.14 Not Available Main - [address], [address], 02/22/2022 15:35:55 02/22/19 23 02/22/2022 BMP, serum or plasm a CI- 100 Not Available Main - [facility] [address], [address], 02/22/2022 15:35:55 02/22/19 23 02/22/2022 BMP, serum or plasm a CRE 0.7 Not Available Main - [facility] [address], [address], 02/22/2022 15:35:55 02/22/19 23 02/22/2022 BMP, serum or plasm a GLU 127 Not Available Main - [facility] [address], [address], 02/22/2022 15:35:55 02/22/19 23 02/22/2022 BMP, serum or plasm a K+ 3.7 Not Available Main - [facility] [address], [address], 02/22/2022 15:35:55 02/22/19 23 02/22/2022 BMP, serum or plasm a Na+ 139 Not Available Main - [facility] [address], [address], 02/22/2022 15:35:55 02/22/19 23 02/22/2022 BMP, serum or plasm a tCO2 28 Not Available Main - [facility] [address], [address], 02/22/2022 15:35:55 02/22/19 23 02/22/2022 rapid flu (A+B) Flu negati ve Not Available [facility] ed [address] [place] [address], [address], 02/22/2022 15:35:38 02/22/19 23 02/22/2022 rapid SARS CoV 2 Ag, QL IA, respi rator y speci men rapid SARS CoV 2 Ag, QL IA, respiratory specimen negati ve Not Available [facility] ed [address] [place] [address], [address], 02/22/2022 15:35:37 Result Notes None recorded. Medical Equipment None Reported. Allergies Allergen ID Allergen Name Allergen Category Reaction Reaction Severity Criticality Documentation Date Start Date Code Code System Note Provider Name and Address Organization Details Recorded Time 1751 Lamictal medicatio n Not available Not available Not available 02/22/2022 73362 2 Hermila Self MD [address] [place] [address],[address], [place], [address], [employer] 3 15:25:57 175 Imitrex medicatio n Not available Not available Not available 02/22/2022 85052 3 Hermila Self MD [address] [place] [address],[address], [place], [address], [employer] 3 15:26:04 Medications Name Sig Start Date [...] Address Organization Details Last Updated DateTime 4 92950.4 4 g 162.56 cm 16 /min 97.3 [...] /min 114 mm[Hg] 66 mm[Hg] Not Available [employer] - [employer] 3 15:25:39 Date Recorded Body weight Provider Name an d Address Organization Details Last Updated DateTime 02/22/2022 25207.1 g Kamilah Rouse [address] [facility],[address], [place], [address], [place] [employer] 02/22/2022 17:39:25 Date Recorded Respiratory rate Oxygen saturation Oxygen saturation in Arterial blood by Pulse oximetry Heart rate Body temperature Body weight Systolic blood pressure Diastolic blood pressure Provider Name and Address Organization Details Last Updated DateTime 3 18 /min 91 % 91 % 110 /min 98.2 [degF] 84207.4 8 g 130 mm[Hg] 78 mm[Hg] Not [...] [id number] Shivam Claudio MD Main - [facility] [address] [place], [place] [phone] 02/15/2022 13:25:36 02/19/2022 09:21:06 Cough 28925407 R05.9 s/p COVID. Mild wheezing. O2 sats stable. Will give an additional neb and prescribe neb treatments . If symptoms persist, recommend visit for possible treatment of COPD exacerbati on [id number] Shivam Claudio MD Main - [facility] [address] [place], [place] [phone] 02/16/2022 14:19:43 02/19/2022 10:07:19 Acute exacerbation of chronic obstructive pulmonary disease 016862126 J44.1 Will treat empiricall y for COPD exacerbati on and add on an expectoran t [id number] Marta Self MD Main - [facility] [address] [place] [phone] 02/22/2022 15:25:37 02/27/2022 11:10:24 Acute exacerbation of chronic obstructive pulmonary disease 040446124 J44.1 with possible pneumonia- patient would benefit [...] knows our number can call for repeat [facility] visit if she feels she needs it. Red flags reviewed as above [id number] Bj Mcqueen MD Main - [facility] [address] [place] [phone] 03/19/2022 17:58:31 03/21/2022 09:18:52 Pain of nose 405991526 J34.89 [id number] Rinku Houser MD Main - [facility] [address] [place] [phone] 06/21/2022 15:27:15 06/22/2022 14:48:09 Fracture of foot 18108863 S92.902A [id number] Elda Jose MD Main - [facility] [address] [place] [phone] 11/12/2022 10:56:13 11/12/2022 22:59:10 Upper respiratory infection 60166348 J06.9 URI sx starting on Saturday. SpO2 [...] Reviewed warning s/sx with pt. Pt and unit nurse agree with plan. [id number] Deacon Easley MD Main - [facility] [address] [place] [phone] 08/21/2023 16:55:50 08/21/2023 19:47:16 Acute exacerbation of chronic obstructive pulmonary disease 969023449 J44.1 This 57-year-ol d female with COPD [...] Prather Member ID Guarantor Name 02/22/2022 1 [facility] - DUAL ELIGIBLE (MEDICARE REPLACEMENT/ADV ANTAGE - HMO) Annie Pak [id number] Annie Pak 03/19/2022 1 [facility] PRIOR TO 2022 - DUAL ELIGIBLE (MEDICARE REPLACEMENT/ADV ANTAGE - HMO) Annie Pak [id number] Annie Pak 06/21/2022 1 [facility] PRIOR TO 2022 - DUAL ELIGIBLE (MEDICARE REPLACEMENT/ADV ANTAGE - HMO) Annie Pak [id number] Annie Pak 11/12/2022 1 [facility] - DOS ON OR AFTER 2022 - DUAL ELIGIBLE - JAIL OPTIONS AND ONE CARE (MEDICARE REPLACEMENT/ADV ANTAGE - HMO) Annie Pak [id number] Annie Pak 08/21/2023 1 [facility] OR AFTER 2022 - DUAL ELIGIBLE - JAIL OPTIONS AND ONE CARE (MEDICARE REPLACEMENT/ADV ANTAGE - HMO) Annie Pak [id number] Annie Pak Notes Date Note Type Note [...] 3 weeks ago. Member still with hacky sports doctor cough, sob on exertion, using neb/inhalers, does has some right sided pleuritic cp, denies fevers, +chills, no D/V, +nausea, but has a poor appetite. Member would like to be re-evaluated. ...................... ...................... ...................... ...................... ...................... ...................... ......... Stain Sprayer Note: ~ Narrative Pt found nichols to [...] and HTN. Seen 02/15 and 02/16 by [facility]- covid and flu negative- given zpak/guaifenesin 400 mg q 4 hr/ prednisone on 02/16- she finished them on . ALso given duoneb 4 xp er day which she has been taking along w/ albuterol MDI Has harsh dry cough still/ SOB/ some pleuritic CP w/ deep inspiration/ cough Could not get appt with her fitness services manager til next . Denies sweats or temp has had little po/ nausea present- no vomiting or diarrhea. Marta Self MD [address] [facility],[address], [place], [address], [employer] 02/22/2022 17:51:09 03/19/2022 text/html CRC Nursing Assessment: Chief Complaints: URI PMH: COPD/Asthma, Hypertension Comments: Member calling for [facility] visit for eval nasal congestion and burning in nostrils x 3-4 days attempt [place] gel with some relief deny fevers cont with chills recent treatment for pneumonia Bj Mcqueen MD [address] [place] [address],[address], [place], [phone], [employer] 03/19/2022 18:12:52 06/21/2022 text/html This was a super vised home visit with unit nurse Suzanne Morelos. CRC Nursing Assessment: Reason For [...] ...................... ...................... ...................... ...................... ...................... ...................... ......... Stain Sprayer Note From Suzanne Morelos: Dispatched Urgent to [...] States she has taken APAP prior to [facility] arrival. Patient rested and iced extremity prior to our arrival. Patient noted to have swelling and bruising to the lateral aspect of the left dorsal foot with the contusion noted to be roughly [id number]. Pedal pulses present. Pt reports secondary complaint of left knee pain due to the position she landed in. Pt denies head, neck, or back pain. Pt denies LOC. Vitals as noted. Pt denies any additional complaints at this time. No other gross or obvious signs of trauma noted. [facility] consulted and recommends Pt be evaluated at an Urgent Care for X-Rays R/O Fx. Pt states the local Urgent Care closes soon and she would need to go to local ED. Transport via local EMS offered to Pt. Pt states she will drive herself to local ED AMA. Completed by Ta Aguilera MA [id number] ...................... ...................... ...................... ...................... ...................... ...................... ......... Disposition: Fulfilled Rinku Houser MD [address] [facility],[address], [place], [address], [employer] 06/21/2022 16:50:32 11/12/2022 text/html CRC Nursing Assessment: [...] ...................... ...................... ...................... ...................... ...................... ...................... ......... Stain Sprayer Note From Artis Kate: Dispatched to the [...] ...................... ......... Disposition: Fulfilled Elda Jose MD [address] [place] [address],[address], [place], [phone], [employer] 11/12/2022 16:08:23 08/21/2023 text/html CRC Nurse Triage Notes (Tara Cramer): Reason For Request: Pt reporting severe cough>chills>nausea>te mperature that has been on/off>headache>states yesterdays covid test was negative>some sob due to cough, nose is stuffy Chief Complaints: Cough, Fever/Chills PMH: COPD/Asthma, Hypertension Comments: [employer] Rep verified the member's name//address and phone number. [...] s/s and seek emergency treatment if needed Stain Sprayer POC Test Results from Leon Ramirez - ALS Rapid COVID antigen (17:31:46) COVID: - Rapid influenza antigen (17:31:48) Flu: - ...................... ...................... ...................... ...................... ...................... ...................... ......... Stain Sprayer Note From Leon Ramirez: Smartcare visit for [...] recently discontinued from incruse inhaler. Consulted with [facility] Dr. Easley who ordered 60 mg of oral prednisone given on scene. Pt instructed to refill inhaler and product picker some OTC mucinex as well. Reviewed red flags for ED. Patient education provided. ...................... ...................... ...................... ...................... ...................... ...................... ......... Disposition: Fulfilled Deacon Easley MD [address] [place] [address],[address], [place], [address], [facility] CLEM GOLDBERG 08/21/2023 17:32:43 OBGyn Episode No OBEpisode recorded.
== END 2024-04-27 10:16 | disposition home or self-care (01) ==
PROVIDERS: PCP Internal Medicine; Visit Provider Nurse Practitioner Family
DX: J06.9 Acute upper respiratory infection, unspecified (principal); R53.1 Weakness; R53.83 Other fatigue

== ENCOUNTER 2024-04-27 09:40 | Outpatient (REF) | payer OTHER, SELFPAY ==
--- OUTSIDE RECORDS SUMMARY | 2024-04-27 11:20 | XMS_ITS | Clinical Summary ---
Author Organization [employer] Address [address] [place] [address] Care Team Providers Care End Frazer Name Role Phone Sandi Andrade MD Primary Care Provider [phone] Allergies Active Allergy Reactions Criticality Noted Date [...] Office Visit Gastroenterology - [address] [facility] [address] [place] [address] Sandi Cloud MD Gastroesophageal reflux [...] patient's age to complete this topic Insurance [facility] MEDICARE Member Subscriber Plan / Payer (Ef fective 2016-Present) Name:Annie Pak Relation to Subscriber:Self Name:Annie Pak Payer ID:[id number] Group ID:[id number] Type:Not on file Address: [address] [place] [address] Care Teams End Frazer Relationship Specialty Start Date End Date Sandi Andrade MD [address] [place] [address] PCP - General Internal Medicine 01/01/24
[2024-04-27 14:32] LABS: Influenza A PCR NEGATIVE (Negative); Influenza B PCR NEGATIVE (Negative); Resp Syncy Virus RNA Qual PCR NEGATIVE (Negative); SARS COV2 PCR INHOUSE NEGATIVE (Negative)
== END 2024-04-27 09:41 | disposition home or self-care (01) ==
LOC: HO.LAB 09:40
PROVIDERS: Nurse Practitioner Family; PCP Internal Medicine
DX: J06.9 Acute upper respiratory infection, unspecified (principal); R53.1 Weakness; R53.83 Other fatigue
CPT/HCPCS: 0241U; 99212

== ENCOUNTER 2024-05-02 10:29 | Outpatient (REF) | payer OTHER, SELFPAY ==
--- OUTSIDE RECORDS SUMMARY | 2024-05-02 10:31 | XMS_ITS | Data Portability ---
Author Organization [employer] Address [address] [place] [id number] Care Team Providers Care Road Conductor Name Role Phone HIM CCA OTHER Assessment Encounter Date Assessment Date Assessment LastModified by Organization Details LastModified Time 02/22/2022 02/22/2022 I provided real -time medical direction via phone for this encounter, and was available for additional phone based assistance as needed. I have reviewed and agree with the Assessment and Plan as documented by the Training Assistant. Patient given the opportunity to ask questions. Advised low threshold for ER: if develops increasing or changing CP/SOB/turning blue/uncontrolle d n/v or black/bloody emesis or stool/ AMS/ syncope/ hi fever un responsive to APAP to call 911- verbalized understanding of instructions [email or web address] Not available 02/22/2022 17:48:51 03/19/2022 03/19/2022 service [...] assessment and plan as documented by the water softener installer. I provided real time medical direction for this encounter and was immediately available to provide additional phone based assistance as needed. History as noted by water softener installer. Pt reports that earlier today while walking [...] also need to follow up with a chemistry physics teacher/ortho pedic relationship specialist after the diagnosis is made and she can get a referral from the ED or urgent care. [email or web address] Not available 06/21/2022 16:50:16 Plan of Treatment Reminders Order Date Submit Date Provider Last Modified By Organization Details Last Modified Time Details Appointments None recorded. Lab SARS CoV 2 RNA (COVID-19), QL, cyber security analyst-PCR, respiratory specimen 2023 024 [email or web address] [facility] (Centralized Electronic Ordering - All Locations), Patient Can Go To The Location Of Their Choice, [id number] 4 11:53:13 rapid flu (A+B) 2023 024 FARIBA [facility], [address] [place] [address], [phone], 4 18:15:50 rapid SARS CoV 2 Ag, QL IA, respiratory specimen 2022 023 [email or web address] [facility], [address] [place] [address], [address], 3 17:26:52 rapid flu (A+B) 2022 023 [email or web address] 0 [facility], [address] [place] [address], [address], 3 17:26:53 BMP, serum or plasma 2022 023 [email or web address] 0 [facility], [address] [place] [address], [address], 3 17:26:53 Referral None recorded. Procedures None recorded. Surgeries None recorded. Imaging None recorded. Medication Orders prednisone 10 mg tablet 2023 024 FARIBA [facility] #2339, [address] [place] [address], [address], 4 17:07:19 Solu-Medrol (PF) 125 mg/2 mL solution for injection 2022 023 [email or web address] [facility] #2339, [address] [place] [address], [address], 3 17:26:53 ondansetron HCl (PF) 4 mg/2 mL injection solution 2022 023 [email or web address] [facility] #2339, [address] [facility], [place], [address], 3 17:26:53 ipratropium 0.5 mg-albutero l 3 mg (2.5 mg base)/3 mL nebulizatio n soln 2022 023 [email or web address] 0 [facility] #2339, [address] [place] [address], [address], 3 17:26:53 albuterol sulfate 2.5 mg/3 mL (0.083 %) solution for nebulizatio n 2022 023 [email or web address] 0 [facility] #2339, [address] [facility], [place], [address], 3 17:26:53 sodium chloride 0.9 % intravenous solution 2022 023 [email or web address] [facility] [address] [place] [address], [address], 3 17:26:52 doxycycline hyclate 100 mg capsule 2022 023 [email or web address] 0 [facility], [address] [place] [address], [address], 3 17:27:46 ondansetron 4 mg disintegrat ing tablet 2022 023 [facility] [address] [place] [address], [place], [address], 3 17:30:22 benzonatate 200 mg capsule 2022 023 [facility] [address] [place] [address], [address], 3 17:30:22 doxycycline hyclate 100 mg capsule 2022 023 [facility] [address] [place] [address], [address], 3 17:30:19 prednisone 20 mg tablet 2022 023 [facility], [address] [place] [address], [address], 3 17:30:18 Patient TargetsNo targets recorded. Patient Instructions Encounter Date Encounter Id Patient Instructions Last Modified By Organization Details Last Modified Time 02/22/2022 [id number] IV lock, initiate* [email or web address] Not available 02/22/2022 17:26:52 Reason for Referral None Reported. Results Created Date Observation Date Name Description Value Unit Range Abnormal Flag Note LastModifiedBy Organization Detail LastModifiedTime 02/15/19 23 02/15/2022 rapid flu (A+B) Flu negati ve Not Available Main - [facility] ed [address] [place] [address], [phone], 02/15/2022 13:26:32 02/22/19 23 02/22/2022 BMP, serum or plasm a BUN 7 Not Available Main - [facility] [address], [address], 02/22/2022 15:35:55 02/22/19 23 02/22/2022 BMP, serum or plasm a Ca I Ca 1.14 Not Available Main - [address], [address], 02/22/2022 15:35:55 02/22/19 23 02/22/2022 BMP, serum or plasm a CI- 100 Not Available Main - [facility] [address], [address], 02/22/2022 15:35:55 02/22/19 23 02/22/2022 BMP, serum or plasm a CRE 0.7 Not Available Main - [facility] [address], [address], 02/22/2022 15:35:55 02/22/19 23 02/22/2022 BMP, serum or plasm a GLU 127 Not Available Main - Ins [address], [address], 02/22/2022 15:35:55 02/22/19 23 02/22/2022 BMP, serum or plasm a K+ 3.7 Not Available Main - [facility] [address], [address], 02/22/2022 15:35:55 02/22/19 23 02/22/2022 BMP, serum or plasm a Na+ 139 Not Available Main - [facility] [address], [address], 02/22/2022 15:35:55 02/22/19 23 02/22/2022 BMP, serum or plasm a tCO2 28 Not Available Main - Ins [address], [address], 02/22/2022 15:35:55 02/22/19 23 02/22/2022 rapid flu (A+B) Flu negati ve Not Available [facility] ed [address] [place] [address], [address], 02/22/2022 15:35:38 02/22/19 23 02/22/2022 rapid SARS CoV 2 Ag, QL IA, respi rator y speci men rapid SARS CoV 2 Ag, QL IA, respiratory specimen negati ve Not Available [facility] ed [address] [place] [address], [address], 02/22/2022 15:35:37 Result Notes None recorded. Medical Equipment None Reported. Allergies Allergen ID Allergen Name Allergen Category Reaction Reaction Severity Criticality Documentation Date Start Date Code Code System Note Provider Name and Address Organization Details Recorded Time 1751 Lamictal medicatio n Not available Not available Not available 02/22/2022 [id number] 2 Hermila Self MD [address] [place] [address],[address], [place], [address], [employer] 3 15:25:57 175 Imitrex medicatio n Not available Not available Not available 02/22/2022 [id number] 3 Hermila Self MD [address] [place] [address],[address], [place], [address], [employer] 3 15:26:04 Medications Name Sig Start [...] Address Organization Details Last Updated DateTime 4 07836.4 4 g 162.56 cm 16 /min 97.3 [...] Address Organization Details Last Updated DateTime 02/22/2022 99268.1 g Kamilah Rouse [address] [facility],[address], [place], [address], [place] - [employer] 02/22/2022 17:39:25 Date Recorded Respiratory rate Oxygen saturation Oxygen saturation in Arterial blood by Pulse oximetry Heart rate Body temperature Body weight Systolic blood pressure Diastolic blood pressure Provider Name and Address Organization Details Last Updated DateTime 3 18 /min 91 % 91 % 110 /min 98.2 [degF] 99072.4 8 g 130 mm[Hg] 78 mm[Hg] Not [...] [id number] Shivam Claudio MD Main - [facility] [address] [place], [place] [phone] 02/15/2022 13:25:36 02/19/2022 09:21:06 Cough 57554272 R05.9 s/p COVID. Mild wheezing. O2 sats stable. Will give an additional neb and prescribe neb treatments . If symptoms persist, recommend visit for possible treatment of COPD exacerbati on [id number] Shivam Claudio MD Main - [facility] [address] [place], [place] [phone] 02/16/2022 14:19:43 02/19/2022 10:07:19 Acute exacerbation of chronic obstructive pulmonary disease 641224853 J44.1 Will treat empiricall y for COPD exacerbati on and add on an expectoran t [id number] Marta Self MD Main - [facility] [address] [place] [phone] 02/22/2022 15:25:37 02/27/2022 11:10:24 Acute exacerbation of chronic obstructive pulmonary disease [id number] J44.1 with possible pneumonia- patient would benefit [...] knows our number can call for repeat [facility] visit if she feels she needs it. Red flags reviewed as above [id number] Bj Mcqueen MD Main - [facility] [address] [place] [address] 03/19/2022 17:58:31 03/21/2022 09:18:52 Pain of nose 197256213 J34.89 [id number] Rinku Houser MD Main - [facility] [address] [place] [address] 06/21/2022 15:27:15 06/22/2022 14:48:09 Fracture of foot 77869819 S92.902A [id number] Elda Jose MD Main - [facility] [address] [place] [address] 11/12/2022 10:56:13 11/12/2022 22:59:10 Upper respiratory infection 52091873 J06.9 URI sx starting on Saturday. SpO2 [...] Reviewed warning s/sx with pt. Pt and water softener installer agree with plan. [id number] Deacon Easley MD Main - [facility] [address] [place] [address] 08/21/2023 16:55:50 08/21/2023 19:47:16 Acute exacerbation of chronic obstructive pulmonary disease [id number] J44.1 This 57-year-ol d female with COPD [...] Prather Member ID Guarantor Name 02/22/2022 [facility] ELIG[facility] (MEDICARE REPLACEMENT/ADV ANTAGE - HMO) Annie Pak [id number] Annie Pak 03/19/2022 1 [facility] TO [facility] - DUAL ELIGIBLE (MEDICARE REPLACEMENT/ADV ANTAGE - HMO) Annie Pak [id number] Annie Pak 06/21/2022 1 [facility] TO [facility] - DUAL ELIGIBLE (MEDICARE REPLACEMENT/ADV ANTAGE - HMO) Annie Pak [id number] Annie Pak 11/12/2022 1 [facility] - DOS ON OR AFTER 2022 - DUAL ELIGIBLE - JAIL OPTIONS AND ONE CARE (MEDICARE REPLACEMENT/ADV ANTAGE - HMO) Annie Pak [id number] Annie Pak 08/21/2023 1 [facility] AFTER 2022 - DUAL ELIGIBLE - JAIL OPTIONS AND ONE CARE (MEDICARE REPLACEMENT/ADV ANTAGE - HMO) Annie Pak [id number] Annie Pak Notes Date Note Type Note [...] 3 weeks ago. Member still with hacky hebrew cantor cough, sob on exertion, using neb/inhalers, does has some right sided pleuritic cp, denies fevers, +chills, no D/V, +nausea, but has a poor appetite. Member would like to be re-evaluated. ...................... ...................... ...................... ...................... ...................... ...................... ......... Training Assistant Note: ~ Narrative Pt found nichols to [...] and HTN. Seen 02/15 and 02/16 by [facility]- covid and flu negative- given zpak/guaifenesin 400 mg q 4 hr/ prednisone on 02/16- she finished them on . ALso given duoneb 4 xp er day which she has been taking along w/ albuterol MDI Has harsh dry cough still/ SOB/ some pleuritic CP w/ deep inspiration/ cough Could not get appt with her atmospheric scientist til next . Denies sweats or temp has had little po/ nausea present- no vomiting or diarrhea. Marta Self MD [address] [facility],[address], [place], [address], [employer] 02/22/2022 17:51:09 03/19/2022 text/html CRC Nursing Assessment: Chief Complaints: URI PMH: COPD/Asthma, Hypertension Comments: Member calling for [facility] visit for eval nasal congestion and burning in nostrils x 3-4 days attempt [place] gel with some relief deny fevers cont with chills recent treatment for pneumonia Bj Mcqueen MD [address] [place] [address],[address], [place], [address], [employer] 03/19/2022 18:12:52 06/21/2022 text/html This was a super vised home visit with water softener installer Suzanne Morelos. CRC Nursing Assessment: Reason For [...] ...................... ...................... ...................... ...................... ...................... ...................... ......... Training Assistant Note From Suzanne Morelos: Dispatched Urgent to [...] States she has taken APAP prior to [facility] arrival. Patient rested and iced extremity prior to our arrival. Patient noted to have swelling and bruising to the lateral aspect of the left dorsal foot with the contusion noted to be roughly [id number]. Pedal pulses present. Pt reports secondary complaint of left knee pain due to the position she landed in. Pt denies head, neck, or back pain. Pt denies LOC. Vitals as noted. Pt denies any additional complaints at this time. No other gross or obvious signs of trauma noted. [facility] consulted and recommends Pt be evaluated at an Urgent Care for X-Rays R/O Fx. Pt states the local Urgent Care closes soon and she would need to go to local ED. Transport via local EMS offered to Pt. Pt states she will drive herself to local ED AMA. Completed by Ta Aguilera [place] [id number] ...................... ...................... ...................... ...................... ...................... ...................... ......... Disposition: Fulfilled Rinku Houser MD [address] [facility],[address], [place], [address], [employer] 06/21/2022 16:50:32 11/12/2022 text/html CRC Nursing Assessment: [...] ...................... ...................... ...................... ...................... ...................... ...................... ......... Training Assistant Note From Artis Kate: Dispatched to the [...] ...................... ......... Disposition: Fulfilled Elda Jose MD [address] [place] [address],[address], [place], [address], [employer] 11/12/2022 16:08:23 08/21/2023 text/html CRC Nurse Triage Notes (Tara Cramer): Reason For Request: Pt reporting severe cough>chills>nausea>te mperature that has been on/off>headache>states yesterdays covid test was negative>some sob due to cough, nose is stuffy Chief Complaints: Cough, Fever/Chills PMH: COPD/Asthma, Hypertension Comments: [employer] Console Monitor verified the member's name//address and phone number. [...] s/s and seek emergency treatment if needed Training Assistant POC Test Results from Leon Ramirez - ALS Rapid COVID antigen (17:31:46) COVID: - Rapid influenza antigen (17:31:48) Flu: - ...................... ...................... ...................... ...................... ...................... ...................... ......... Training Assistant Note From Leon Ramirez: Smartcare visit for [...] recently discontinued from incruse inhaler. Consulted with [facility]. Easley who ordered 60 mg of oral prednisone given on scene. Pt instructed to refill inhaler and picking belt operator some OTC mucinex as well. Reviewed red flags for ED. Patient education provided. ...................... ...................... ...................... ...................... ...................... ...................... ......... Disposition: Fulfilled Deacon Easley MD [address] [place] [address],[address], [place], [address], [facility] 08/21/2023 17:32:43 OBGyn Episode No OBEpisode recorded.
[2024-05-02 13:41] LABS: MANUAL DIFF FLAG NO
[2024-05-02 14:00] LABS: Alanine Aminotransferase 20 U/L (0-31); Albumin Level 3.9 g/dL (3.5-5.0); Alkaline Phosphatase 98 U/L (39-117); Anion Gap 12 (12-20); Aspartate Amino Transferase 27 U/L (5-31); Bilirubin Total 0.4 mg/dL (0.0-1.0); Blood Urea Nitrogen 13 mg/dL (9-16); Carbon Dioxide 23 mmol/L (22-29); Chloride 106 mmol/L (96-108); Estimated Glomerular Filt Rate > 60; Glucose Fasting 95 mg/dL (60-99); Potassium 4.2 mmol/L (3.3-5.1); Sodium 137 mmol/L (135-145); Total Protein 7.3 g/dL (6.5-8.0)
[2024-05-02 14:02] LABS: Basophils Absolute Auto 0.1 X10*3/uL (0.0-0.2); Basophils Percent Auto 0.9 % (0-2); Eosinophils Absolute Auto 0.1 X10*3/uL (0.0-0.4); Eosinophils Percent Auto 1.6 % (0-4); Hematocrit 37.5 % (37.0-47.0); Hemoglobin 12.1 g/dl (12.0-16.0); Imm Gran Abs Auto 0.02 X10*3/uL (0.00-0.03); Imm Gran Pct Auto 0.3 % (0.0-0.4); Lymphocytes Absolute Auto 2.5 X10*3/uL (1.2-4.9); Lymphocytes Percent Auto 36.6 % (20-40); Mean Corpuscular HGB Conc 32.3 g/dl (31.0-35.0); Mean Corpuscular Hemoglobin 31.1 pg (27.0-33.0); Mean Corpuscular Volume 96.4 fL (80.0-98.0); Mean Platelet Volume 10.4 fL (9.4-12.3); Monocytes Absolute Auto 0.3 X10*3/uL (0.1-1.2); Monocytes Percent Auto 4.5 % (2-11); Neutrophils Absolute Auto 3.8 x10*3/uL (2.0-8.3); Neutrophils Percent Auto 56.1 % (45-73); Platelet Count 238 X10*3/uL (160-400); Red Blood Count 3.89 X10*6/uL (4.20-5.50); Red Cell Distribution Width 12.4 % (11.0-16.0); White Blood Count 6.7 X10*3/uL (4.8-10.8)
[2024-05-02 14:16] LABS: TSH reflex Free T4 0.47 uIU/mL (0.32-4.0); Vitamin D 25-OH Total 36.8 ng/mL (>30)
[2024-05-02 14:32] LABS: Folate 6.1 ng/mL (> or = 4.0); Vitamin B12 479 pg/mL (200-900)
[2024-05-02 15:16] LABS: Estimated Average Glucose 108 mg/dL; Hemoglobin A1C 113.8311 umol/L; Hemoglobin A1c % 5.4 % (<6.0); Total Hemoglobin (HGBA1C) 3214.6475 umol/L
== END 2024-05-02 10:30 | disposition home or self-care (01) ==
LOC: HO.HMGCLDS 10:29
PROVIDERS: PCP Internal Medicine; Visit Provider Internal Medicine
DX: Z00.00 Encounter for general adult medical examination without abnormal findings (principal); R73.9 Hyperglycemia, unspecified; E53.8 Deficiency of other specified B group vitamins; E55.9 Vitamin D deficiency, unspecified; J44.9 Chronic obstructive pulmonary disease, unspecified
CPT/HCPCS: 36415; 80053; 82306; 82607; 82746; 83036; 84443; 85025

== ENCOUNTER 2024-05-28 12:26 | Outpatient (AMB) | payer OTHER, SELFPAY ==
[2024-05-28 12:32] VITALS: BP 108/66; PULSE 81; RESP 20; TEMP 36.6; O2SAT 97; BMI 34.5
--- NOTE | 2024-05-28 12:32 | A.OFFPC_ITS ---
Vital Signs 05/28/24 12:32 Height 5 ft 4 in Weight 201 lb BMI 34.5 BP 108/66 Blood Pressure Location Lt brachial Position Sitting Respiration 20 Pulse 81 Pulse Source Pulse Oximeter Temp 97.8 F Temp Source Oral Pulse Oximetry (%) 97 Oxygen Delivery Method Room Air Intake Visit Reasons: weakness, tired, headaches Intake Note: Pt is here today for a sick visit. Pt c/o weakness feeling tired, headaches. Pt states that she was seen in our walk in for the smae symptoms. Allergies sumatriptan [From IMITREX] Allergy (Intermediate, Verified 05/28/24 12:37) RASH Medication List - Last Reconciled 05/28/24 by Sandi Andrade MD albuterol sulfate 90 mcg/actuation 2 puffs inhalation Q6H PRN alendronate (Fosamax) 70 mg PO QWEEK atorvastatin 10 mg PO QPM cholecalciferol (vitamin D3) 50 mcg PO DAILY clonazepam 1 mg PO BID disposable gloves As directed-size medium fluticasone propion-salmeterol 250-50 mcg/dose (Wixela Inhub) 1 inh PO BID fluticasone propionate 50 mcg/actuation 1 spray intranasal DAILY gabapentin 400 mg PO BEDTIME incontinence pad, liner, disp As directed (4 pks per month) [Kneeling Scooter As directed] loratadine 10 mg PO DAILY PRN montelukast 10 mg PO DAILY naltrexone microspheres ER (Vivitrol) mg IM pantoprazole 40 mg PO BID Tobacco use date assessed: 05/28/24 Dental Screening Dental Screen Date: 05/28/24 Did you have a dental visit in the last 12 months?: Yes Did you have a dental problem in the last 6 months where you did not have access to dental care?: No Was dental information given to patient?: Patient has dentist HPI weakness, tired, headaches HPI Details Pt presents for f/u asthma, hyperlipid. Patient complains of general fatigue, body aches, sinus congestion runny nose on and off worse in the springtime despite taking antihistamine montelukast and using Flonase nasal spray. She denies fever chills cough. Patient has been working out at the gym 6 times a week for an hour. She denies exercise induced chest pain shortness or breath cough or wheezing. Patient has been decreasing caloric intake increasing physical activity for over 6 months. She is interested in trying GLP 1 agonist to facilitate weight PFSH Medical History (Updated 05/28/24 @ 13:29 by Sandi Andrade MD) Weakness generalized Nocturnal hypoxemia Restrictive lung disease Musculoskeletal pain Anxiety and depression Ex-smoker Allergic rhinitis Cataract Vitamin B12 deficiency Vitamin D insufficiency GERD (gastroesophageal reflux disease) ETOH abuse Migraine SUNSHINE on CPAP COPD (chronic obstructive pulmonary disease) Surgical History History of esophagogastroduodenoscopy (EGD) H/O colonoscopy S/P PRINCESS (total abdominal hysterectomy) History of total hysterectomy Family History Father Alcoholic Mother Diabetes mellitus HTN (hypertension) Mental health disorder Brother Substance use disorder Mental health disorder Brother Substance use disorder Daughter Mental health disorder Brother Substance use disorder Social History Household Members: Spouse Housing: House Do you presently have visiting nurse or other home services: No Alcohol intake: former Comment: all counts correct Patient Tobacco Use Status: Former Tobacco user Tobacco use type: Cigarette e-Cigarette/Vaping Use: Never Used Second Hand Smoke Exposure: No Substance Use Type: Crack/Cocaine Advance Directives Date on File: 02/28/22 service: No Current occupational status: disabled 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 1. Little interest or pleasure in doing things: not at all 2. Feeling down, depressed, or hopeless: not at all 3. Trouble falling or staying asleep, or sleeping too much: nearly every day 4. Feeling tired or having little energy: nearly every day 5. Poor appetite or overeating: more than half the days 6. Feeling bad about yourself - or that you are a failure or have let yourself or your family down: not at all 7. Trouble concentrating on things, such as reading the newspaper or watching television: not at all 8. Moving or speaking so slowly that other people could have noticed. Or the opposite - being so fidgety or restless that you have been moving around a lot more than usual: not at all 9. Thoughts that you would be better off or of hurting yourself in some way: not at all Total score: 8 Depression Screening Interpretation: Negative Depression Screening Done: Yes 62832 - PHQ-9 Billing: Yes Source: Developed by Drs. Angelo Oseguera, Marzena Parker, Tony Vick and colleagues, with an educational gee from [employer]. Thrive Questionnaire Date Thrive assessed: 05/28/24 I am a: Patient What is your living situation today?: I have a steady place to live Within the past 12 months, did the food you bought not last and you didn't have the money to get more?: Sometimes True Within the past 12 months, did you worry whether your food would run out before you got money to buy more?: Sometimes True Do you have trouble paying for medicines?: No Do you have trouble getting transportation to medical appointments?: No Do you have trouble paying your heating and electricity bill?: No Do you have trouble taking care of your child, family member or friend?: No Do you have trouble with day-to-day activities such as bathing, preparing meals, shopping, managing finances, etc.?: Yes Are you currently unemployed and looking for a job?: Yes Are you interested in more education?: No Please select the resources that you would like help with: None Currently or been in a relationship where the following occur: No concerns reported THRIVE Score: 2 AUDIT C Alcohol Use Questionnaire (AUDIT-C) 1. How often do you have a drink containing alcohol?: Never Total Score: 0 RICARDO-7 AMB Questionnaire RICARDO-7 Date RICARDO - 7 assessed: 05/28/24 Feeling nervous, anxious, or on edge: 0 = Not at all Not being able to stop or control worryin = Not at all Worrying too much about different things: 0 = Not at all Trouble relaxin = Not at all Being so restless that it is hard to sit still: 0 = Not at all Becoming easily annoyed or irritable: 3 = Nearly every day Feeling afraid as if something awful might happen: 0 = Not at all Total RICARDO-7 score (0-4 normal; 5-9 mild; 10-14 moderate; 15-21 severe): 3 Source: Developed by Drs. Angelo Oseguera, Marzena Parker, Tony Vick and colleagues, with an educational gee from [employer]. RICARDO-7 Assessment Billing RICARDO-7 Assessment Tool: RICARDO-7 Assessment 95211 Review of Systems Const All systems reviewed & are unremarkable except as noted in HPI and below Eyes Reports no additional complaints ENT Reports no additional complaints Card Reports no additional complaints Resp Reports no additional complaints GI Reports no additional complaints Reports no additional complaints Physical exam (Primary Care) Vital Signs: Last Vital Signs Temp 97.8 F 05/28/24 12:32 Pulse 81 05/28/24 12:32 Resp 20 05/28/24 12:32 BP 108/66 05/28/24 12:32 Pulse Ox 97 05/28/24 12:32 Oxygen Delivery Method Room Air 05/28/24 12:32 BMI result Body Mass Index 34.5 Tobacco/Smoking Status: Tobacco use Status Tobacco use date assessed 05/28/24 05/28/24 12:38 Patient Tobacco Use Status Former Tobacco user 05/28/24 12:34 Tobacco use type Cigarette 05/28/24 12:34 e-Cigarette/Vaping Use Never Used 05/28/24 12:34 PHQ-9: PHQ-9 Score PHQ-9: Total score 8 05/28/24 12:38 Depression Screening Interpretation: Negative Thrive Assessment: Date of Thrive Assessment Date Thrive assessed 05/28/24 05/28/24 12:38 Currently or been in a relationship where the following occur: No concerns reported Const General: no acute distress HENMT Head: Yes normal to inspection Mouth: Normal oral and palatal mucosa present Throat: Yes posterior oropharynx normal Neck Neck: Yes no lymphadenopathy and Yes supple Resp Effort & Inspection: normal respiratory effort Auscultation: clear to auscultation bilaterally Cardio Rhythm: regular rhythm Heart sounds: S1 normal heart sound present and S2 normal heart sound present GI Inspection: Yes normal to inspection Palpation (GI): Soft to palpation Percussion: Yes normal to percussion Auscultation: normal bowel sounds Coding Level of Care Code Est Pt Level 4 (42200) Diagnoses Seasonal allergic rhinitis J30.2 Weakness generalized R53.1 COPD (chronic obstructive pulmonary disease) J44.9 Overweight E66.3 Alcohol use disorder F10.90 Hyperlipidemia E78.5 Additional Codes RICARDO-7 Assessment Billing - RICARDO-7 Assessment Tool: RICARDO-7 Assessment 21700 ([id number]) PHQ-9 - 67414 - PHQ-9 Billing: Yes ([id number]) Assessment & Plan Assessment & Plan (1) Seasonal allergic rhinitis: Code(s): J30.2 - Other seasonal allergic rhinitis Category: Medical Plan: Continue current medications and 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 SPIROMETRY IN 2021 SHOWED ONLY MODERATE DEGREE OF RESTRICTIVE PULMONARY DISORDER. BUT SHE HAS BEEN USING ADVAIR WELL INCRUSE ELLIPTA REGULARLY. SPIROMETRY ON HER LAST VISIT SHOWED MILD RESTRICTIVE PULMONARY DISEASE AND NO EVIDENCE OF OBSTRUCTIVE AIRWAY DISORDER. Code(s): J44.9 - Chronic obstructive pulmonary disease, unspecified Category: Medical Plan: Continue Wixela (4) Overweight: Code(s): E66.3 - Overweight Category: Medical Plan: Decreasing caloric intake increasing physical activity discussed with the patient. She will try Zepbound 2.5 mg weekly and follow-up in 3 months (5) Alcohol use disorder: Comment: sober since 03/2024 Code(s): F10.90 - Alcohol use, unspecified, uncomplicated Category: Medical Plan: Sober since March (6) Hyperlipidemia: Code(s): E78.5 - Hyperlipidemia, unspecified Category: Medical Plan: Continue statin Orders: Orders AMB EKG-In Office Today I10 - Essential (primary) hypertension, R42 - Dizziness and giddiness, R53.1 - Weakness Creatine Kinase Total Today R53.1 - Weakness C Reactive Protein Today R53.1 - Weakness Referrals Allergy & Immunology Referral J30.2 - Other seasonal allergic rhinitis Medications: New Zepbound (tirzepatide (weight loss)) for 4 weeks 2.5 mg (0.5 mL) subcut QWEEK 2 mL 1RF NS
--- OUTSIDE RECORDS SUMMARY | 2024-05-28 15:13 | XMS_ITS | Clinical Summary ---
Author Organization [facility] Address [address] [place] [address] Care Team Providers Care Director Of Online Education Name Role Phone Sandi Andrade MD Primary Care Provider [phone] Allergies Active Allergy Reactions Criticality Noted Date [...] 180 each 3 02/21/2024 02/20/19 26 Active Surgical History Surgery Date Site/Laterality Comments TOTAL ABDOMINAL HYSTERECTOMY ESOPHAGOGASTRODUODENOSCOPY 01/03/2022 HH, grade 3 esophagitis ESOPHAGOGASTRODUODENOSCOPY 11/19/2018 esophagitis COLONOSCOPY W/ POLYPECTOMY 11/19/2018 benign poylp- 10 yr recall Medical History Medical History Date Comments Dysphagia GERD (gastroesophageal reflux disease) Aspiration pneumonia ([facility] V24, [facility] V28) Chronic constipation Alcohol use disorder COPD (chronic obstructive pulmonary disease) ([facility] V24, [facility] V28) Bipolar 1 disorder ([facility] V24, [facility] V28) Obesity SUNSHINE (obstructive sleep apnea) HTN (hypertension) [...] 11/02/2021, 07/19/2021, Additional history exists Influenza Vaccine (Season Ended) 2024 11/28/2022, 11/02/2021, 03/13/2021, Additional history exists DTaP,Tdap,and Td Vaccines (4 - Td or Tdap) 07/15/2031 07/14/2021, 09/01/2019, 09/13/2009 RSV Immunization Adult Patients (1 - 1-dose 75+ series) 11/05/2038 Zoster [...] age to complete this topic Meningococcal B Vaccine Aged Out No l onger eligible based on patient's age to complete [...] patient's age to complete this topic Insurance [facility] MEDICARE Member Subscriber Plan / Payer (Ef fective 2016-Present) Name:Annie Pak Relation to Subscriber:Self Name:Annie Pak Payer ID:[id number] Group ID:[id number] Type:Not on file Address: [place] [address] [id number] Care Teams Director Of Online Education Relationship Specialty Start Date End Date Sandi Andrade MD [address] [facility] [place] [address] PCP - General Internal Medicine 01/01/24
--- OUTSIDE RECORDS SUMMARY | 2024-05-28 15:13 | XMS_ITS | Data Portability ---
Author Organization [facility] [place] [facility] Address [address] [place] [address] Care Team Providers Care Retail Services Professional Name Role Phone HIM CCA OTHER Assessment Encounter Date Assessment Date Assessment LastModified by Organization Details LastModified Time 02/22/2022 02/22/2022 I provided real -time medical direction via phone for this encounter, and was available for additional phone based assistance as needed. I have reviewed and agree with the Assessment and Plan as documented by the County Health Officer. Patient given the opportunity to ask questions. Advised low threshold for ER: if develops increasing or changing CP/SOB/turning blue/uncontrolle d n/v or black/bloody emesis or stool/ AMS/ syncope/ hi fever un responsive to APAP to call 911- verbalized understanding of instructions Not available 02/22/2022 17:48:51 03/19/2022 03/19/2022 service [...] assessment and plan as documented by the chemical maker. I provided real time medical direction for this encounter and was immediately available to provide additional phone based assistance as needed. History as noted by chemical maker. Pt reports that earlier today while walking [...] also need to follow up with a jig grinder/ortho pedic consumer insights specialist after the diagnosis is made and she can get a referral from the ED or urgent care. [email or web address] Not available 06/21/2022 16:50:16 Plan of Treatment Reminders Order Date Submit Date Provider Last Modified By Organization Details Last Modified Time Details Appointments None recorded. Lab SARS CoV 2 RNA (COVID-19), QL, pcmh specialist-PCR, respiratory specimen 2023 024 [email or web address] [facility] (Centralized Electronic Ordering - All Locations), Patient Can Go To The Location Of Their Choice, [id number] 4 11:53:13 rapid flu (A+B) 2023 024 FARIBA [facility], [address] [place] [address], [address] 4 18:15:50 rapid SARS CoV 2 Ag, QL IA, respiratory specimen 2022 023 [email or web address] [address], [address] 3 17:26:52 rapid flu (A+B) 2022 023 [email or web address] [address], [address] 3 17:26:53 BMP, serum or plasma 2022 023 [email or web address] 0 [facility], [address] [place] [address], [address] 3 17:26:53 Referral None recorded. Procedures None recorded. Surgeries None recorded. Imaging None recorded. Medication Orders prednisone 10 mg tablet 2023 024 FARIBA [facility], [address] [place], [address], 4 17:07:19 Solu-Medrol (PF) 125 mg/2 mL solution for injection 2022 023 [email or web address] 0 [facility], [address] [place] [address], [place], [address], 3 17:26:53 ondansetron HCl (PF) 4 mg/2 mL injection solution 2022 023 [email or web address] 0 [facility], [address] [facility], [place], [address], 3 17:26:53 ipratropium 0.5 mg-albutero l 3 mg (2.5 mg base)/3 mL nebulizatio n soln 2022 023 [email or web address] 0 [facility], [address] [place] [address], [address], 3 17:26:53 albuterol sulfate 2.5 mg/3 mL (0.083 %) solution for nebulizatio n 2022 023 [email or web address] 0 [facility], [address] [place] [address], [address], 3 17:26:53 sodium chloride 0.9 % intravenous solution 2022 023 [email or web address] 0 [facility], [address] [place] [address], [place], [address], 3 17:26:52 doxycycline hyclate 100 mg capsule 2022 023 [email or web address] 0 [facility] [address] [place] [address], [address], 3 17:27:46 ondansetron 4 mg disintegrat ing tablet 2022 023 [facility] [address] [place] [address], [address], 3 17:30:22 benzonatate 200 mg capsule 2022 023 [facility] [address] [place] [address], [address], 3 17:30:22 doxycycline hyclate 100 mg capsule 2022 023 [facility] [address] [place] [address], [address], 3 17:30:19 prednisone 20 mg tablet 2022 023 [facility] [address] [place] [address], [address], 3 17:30:18 Patient TargetsNo targets recorded. Patient Instructions Encounter Date Encounter Id Patient Instructions Last Modified By Organization Details Last Modified Time 02/22/2022 [id number] IV lock, initiate* [email or web address] Not available 02/22/2022 17:26:52 Reason for Referral None Reported. Results Created Date Observation Date Name Description Value Unit Range Abnormal Flag Note LastModifiedBy Organization Detail LastModifiedTime 02/15/19 23 02/15/2022 rapid flu (A+B) Flu negati ve Not Available [facility] [address] [place] [address], [phone] 02/15/2022 13:26:32 02/22/19 23 02/22/2022 BMP, serum or plasm a BUN 7 Not Available [facility] [address] [place] [address], [address] [place] [address] 02/22/2022 15:35:55 02/22/19 23 02/22/2022 BMP, serum or plasm a Ca I Ca 1.14 Not Available [facility] [address] [place] [address], [address] [place] [address] 02/22/2022 15:35:55 02/22/19 23 02/22/2022 BMP, serum or plasm a CI- 100 Not Available [facility] - [facility] [address], [address] [place] [address] 02/22/2022 15:35:55 02/22/19 23 02/22/2022 BMP, serum or plasm a CRE 0.7 Not Available [facility] [address], [address] [place] [address] 02/22/2022 15:35:55 02/22/19 23 02/22/2022 BMP, serum or plasm a GLU 127 Not Available [facility] [address], [address] [place] [address] 02/22/2022 15:35:55 02/22/19 23 02/22/2022 BMP, serum or plasm a K+ 3.7 Not Available [facility] [address], [address] [place] [address] 02/22/2022 15:35:55 02/22/19 23 02/22/2022 BMP, serum or plasm a Na+ 139 Not Available [facility] [address], [address] [place] [address] 02/22/2022 15:35:55 02/22/19 23 02/22/2022 BMP, serum or plasm a tCO2 28 Not Available [facility] [address], [address] [place] [address] 02/22/2022 15:35:55 02/22/19 23 02/22/2022 rapid flu (A+B) Flu negati ve Not Available [facility] [address] [place] [address], [address] [place] [address] 02/22/2022 15:35:38 02/22/19 23 02/22/2022 rapid SARS CoV 2 Ag, QL IA, respi rator y speci men rapid SARS CoV 2 Ag, QL IA, respiratory specimen negati ve Not Available [facility] [address] [place] [address], [address] [place] [address] 02/22/2022 15:35:37 Result Notes None recorded. Medical Equipment None Reported. Allergies Allergen ID Allergen Name Allergen Category Reaction Reaction Severity Criticality Documentation Date Start Date Code Code System Note Provider Name and Address Organization Details Recorded Time 1750 Lamictal medicatio n Not available Not available Not available 02/22/2022 2 RxBrett Self MD [address] [facility],[address], [place], [address], [employer] 3 15:25:57 1751 Imitrex medicatio n Not available Not available Not available 02/22/2022 [id number] 3 RxBrett Self MD [address] [facility],[address], [place], [address], [employer] 3 15:26:04 Medications Name Sig Start Date [...] Address Organization Details Last Updated DateTime 4 49026.4 4 g 162.56 cm 16 /min 97.3 [...] Address Organization Details Last Updated DateTime 02/22/2022 18627.1 g Kamilah Rouse [address] [place] [address],[address], [place], [address], [place] - [employer] [facility] 02/22/2022 17:39:25 Date Recorded Respiratory rate Oxygen saturation Oxygen saturation in Arterial blood by Pulse oximetry Heart rate Body temperature Body weight Systolic blood pressure Diastolic blood pressure Provider Name and Address Organization Details Last Updated DateTime 3 18 /min 91 % 91 % 110 /min 98.2 [degF] 48237.4 8 g 130 mm[Hg] 78 mm[Hg] Not Available [employer] 3 17:58:42 Date Recorded Respiratory rate Heart rate Oxygen saturation Oxygen saturation in Arterial blood by Pulse oximetry Body temperature Systolic blood pressure Diastolic blood pressure Provider Name and Address Organization Details Last Updated DateTime 3 18 /min 94 /min 98 % 98 % 98.2 [degF] 136 mm[Hg] 79 mm[Hg] Not Available [employer] 3 15:27:16 Social History None [...] Code Diagnosis Note [id number] Shivam Claudio MD [facility] [address] [place] [address] 02/15/2022 13:25:36 02/19/2022 09:21:06 Cough 41947661 R05.9 s/p COVID. Mild wheezing. O2 sats stable. Will give an additional neb and prescribe neb treatments . If symptoms persist, recommend visit for possible treatment of COPD exacerbati on [id number] Shivam Claudio MD [facility] - [facility] [address] [place] [address] 02/16/2022 14:19:43 02/19/2022 10:07:19 Acute exacerbation of chronic obstructive pulmonary disease [id number] J44.1 Will treat empiricall y for COPD exacerbati on and add on an expectoran t [id number] Marta Self MD [facility] - [facility] [address] [place] [address] 02/22/2022 15:25:37 02/27/2022 11:10:24 Acute exacerbation of chronic obstructive pulmonary disease 316412505 J44.1 with possible pneumonia- patient would benefit [...] q 6 prn/Keep appt with pulmonolog ist Tuwalt 02/27/22- advised to touch base w. pcp tomorrow- knows our number can call for repeat [facility] visit if she feels she needs it. Red flags reviewed as above [id number] Bj Mcqueen MD [facility] - [facility] [address] [place] [address] 03/19/2022 17:58:31 03/21/2022 09:18:52 Pain of nose 770899100 J34.89 [id number] Rinku Houser MD [facility] [address] [place] [address] 06/21/2022 15:27:15 06/22/2022 14:48:09 Fracture of foot 13031039 S92.902A [id number] Elda Jose MD [facility] [address] [place] [address] 11/12/2022 10:56:13 11/12/2022 22:59:10 Upper respiratory infection 33797291 J06.9 URI sx starting on Saturday. SpO2 [...] Reviewed warning s/sx with pt. Pt and chemical maker agree with plan. [id number] Deacon Easley MD [facility] [address] [place] [phone] 08/21/2023 16:55:50 08/21/2023 19:47:16 Acute exacerbation of chronic obstructive pulmonary disease [id number] J44.1 This 57-year-ol d female with COPD [...] Prather Member ID Guarantor Name 02/22/[address] [facility] - DOS PRIOR TO 2022 - DUAL ELIGIBLE (MEDICARE REPLACEMENT/ADV ANTAGE - HMO) Annie Pak [id number] Annie Pak 03/19/[address] [facility] - DOS PRIOR TO 2022 - DUAL ELIGIBLE (MEDICARE REPLACEMENT/ADV ANTAGE - HMO) Annie Pak [id number] Annie Pak 06/21/[address] [facility] - DOS PRIOR TO 2022 - DUAL ELIGIBLE (MEDICARE REPLACEMENT/ADV ANTAGE - HMO) Annie Batesmarthajeremiah [id number] Annie Pak 11/12/[address] [facility] - DOS ON OR AFTER 2022 - DUAL ELIGIBLE - JAIL OPTIONS AND ONE CARE (MEDICARE REPLACEMENT/ADV ANTAGE - HMO) Annie Batesmarthajeremiah [id number] Annie Pak 08/21/[address] [facility] - DOS ON OR AFTER 2022 - DUAL ELIGIBLE - JAIL OPTIONS AND ONE CARE (MEDICARE REPLACEMENT/ADV ANTAGE - HMO) Annie Batesjames [id number] Annie Pak Notes Date Note Type Note [...] to place a referral. [facility] for same symptoms, but have still not resolved. Was prescribed Prednisone, zithro and guaifenesin She did have covid 3 weeks ago. 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 Member would like to be re-evaluated. ...................... ...................... ...................... ...................... ...................... ...................... ......... County Health Officer Note: ~ Narrative Pt found nichols to [...] and HTN. Seen 02/15 and 02/16 by [facility]- covid and flu negative- given zpak/guaifenesin 400 mg q 4 hr/ prednisone on 02/16- she finished them on . ALso given duoneb 4 xp er day which she has been taking along w/ albuterol MDI Has harsh dry cough still/ SOB/ some pleuritic CP w/ deep inspiration/ cough Could not get appt with her tax processor til next Tu. Denies sweats or temp has had little po/ nausea present- no vomiting or diarrhea. Marta Self MD [address] [facility],[address], [place], [address], [facility] 02/22/2022 17:51:09 03/19/2022 text/html CRC Nursing Assessment: Chief Complaints: URI PMH: COPD/Asthma, Hypertension Comments: Member calling for [facility] visit for eval nasal congestion and burning in nostrils x 3-4 days attempt Mildred gel with some relief deny fevers cont with chills recent treatment for pneumonia Bj Mcqueen MD [address] [facility],[address], [place], [address], [facility] 03/19/2022 18:12:52 06/21/2022 text/html This was a super vised home visit with chemical maker Suzanne Morelos. CRC Nursing Assessment: Reason For [...] and would like to be evaluated by [facility]. ...................... ...................... ...................... ...................... ...................... ...................... ......... County Health Officer Note From Suzanne Morelos: Dispatched Urgent to [...] States she has taken APAP prior to [facility] arrival. Patient rested and iced extremity prior to our arrival. Patient noted to have swelling and bruising to the lateral aspect of the left dorsal foot with the contusion noted to be roughly [id number]. Pedal pulses present. Pt reports secondary complaint of left knee pain due to the position she landed in. Pt denies head, neck, or back pain. Pt denies LOC. Vitals as noted. Pt denies any additional complaints at this time. No other gross or obvious signs of trauma noted. [facility] consulted and recommends Pt be evaluated at an Urgent Care for X-Rays R/O Fx. Pt states the local Urgent Care closes soon and she would need to go to local ED. Transport via local EMS offered to Pt. Pt states she will drive herself to local ED AMA. Completed by Ta Aguilera [place] [id number] ...................... ...................... ...................... ...................... ...................... ...................... ......... Disposition: Fulfilled Rinku Houser MD [address] [facility],[address], [place], [address], [place] RACHEL - CLEM GOLDBERG 06/21/2022 16:50:32 11/12/2022 text/html CRC Nursing Assessment: [...] it back on and now in the 's only wears o2 at HS. Member had a fever today also ? 102.1 last check was 101. Took a COVID test negative. Member c/o rib pain ...................... ...................... ...................... ...................... ...................... ...................... ......... County Health Officer Note From Artis Kate: Dispatched to the [...] ...................... ......... Disposition: Fulfilled Elda Jose MD [address] [place] [address],[address], [place], [address], [facility] 11/12/2022 16:08:23 08/21/2023 text/html CRC Nurse Triage Notes (Tara Cramer): Reason For Request: Pt reporting severe cough>chills>nausea>te mperature that has been on/off>headache>states yesterdays covid test was negative>some sob due to cough, nose is stuffy Chief Complaints: Cough, Fever/Chills PMH: COPD/Asthma, Hypertension Comments: Interior Paneler verified the member's name//address and phone number. [...] s/s and seek emergency treatment if needed County Health Officer POC Test Results from Leon Ramirez - ESTELA Rapid COVID antigen (17:31:46) COVID: - Rapid influenza antigen (17:31:48) Flu: - ...................... ...................... ...................... ...................... ...................... ...................... ......... County Health Officer Note From Leon Ramirez: Smartcare visit for [...] recently discontinued from incruse inhaler. Consulted with [facility] Dr. Easley who ordered 60 mg of oral prednisone given on scene. Pt instructed to refill inhaler and pickle processor some OTC mucinex as well. Reviewed red flags for ED. Patient education provided. ...................... ...................... ...................... ...................... ...................... ...................... ......... Disposition: Fulfilled Deacon Easley MD [address] [facility],[address], [place], [address], RACHEL - NiwaCLEM CURRAN 08/21/2023 17:32:43 OBGyn Episode No OBEpisode recorded.
== END 2024-05-28 13:15 | disposition home or self-care (01) ==
LOC: HO.HMCC 12:27
PROVIDERS: PCP Internal Medicine; Visit Provider Internal Medicine
DX: J30.2 Other seasonal allergic rhinitis (principal); R53.1 Weakness; J44.9 Chronic obstructive pulmonary disease, unspecified; E66.3 Overweight; F10.90 Alcohol use, unspecified, uncomplicated; E78.5 Hyperlipidemia, unspecified

== ENCOUNTER 2024-05-28 12:26 | Outpatient (REF) | payer OTHER, SELFPAY ==
--- OUTSIDE RECORDS SUMMARY | 2024-05-28 16:23 | XMS_ITS | Clinical Summary ---
Author Organization [employer] Address [address] [place] [address] Care Team Providers Care Yardage Caller Name Role Phone Sandi Andrade MD Primary Care Provider [phone] Allergies Active Allergy Reactions Criticality Noted Date [...] Dysphagia GERD (gastroesophageal reflux disease) Aspiration pneumonia ([facility] V24, [facility] V28) Chronic constipation Alcohol use disorder COPD (chronic obstructive pulmonary disease) ([facility] V24, [facility] V28) Bipolar 1 disorder ([facility] V24, [facility] V28) Obesity SUNSHINE (obstructive sleep apnea) HTN [...] patient's age to complete this topic Insurance [facility] MEDICARE Member Subscriber Plan / Payer (Ef fective 2016-Present) Name:Annie Pak Relation to Subscriber:Self Name:Annie Pak Payer ID:[id number] Group ID:[id number] Type:Not on file Address: [place] [address] [place] [address] Care Teams Yardage Caller Relationship Specialty Start Date End Date Sandi Adnrade MD [address] [facility] [place] [address] PCP - General Internal Medicine 01/01/24
[2024-05-28 17:34] LABS: C Reactive Protein 0.64 mg/dL (< or = 0.50)
== END 2024-05-28 12:27 | disposition home or self-care (01) ==
LOC: HO.HMGCLDS 12:26
PROVIDERS: PCP Internal Medicine; Visit Provider Internal Medicine
DX: J30.2 Other seasonal allergic rhinitis (principal); R53.1 Weakness; J44.9 Chronic obstructive pulmonary disease, unspecified; E66.3 Overweight; F10.90 Alcohol use, unspecified, uncomplicated; E78.5 Hyperlipidemia, unspecified
CPT/HCPCS: 36415; 82550; 86140; 96127; 99212

== ENCOUNTER 2024-06-16 12:46 | Outpatient (AMB) | payer OTHER, SELFPAY ==
--- NOTE | 2024-06-16 12:46 | A.OFFPC_ITS ---
Vital Signs 06/16/24 12:47 Height 5 ft 4 in Weight 196 lb BMI 33.6 BP 110/66 Blood Pressure Location Rt brachial Position Sitting Respiration 20 Pulse 100 Pulse Source Pulse Oximeter Pulse Oximetry (%) 95 Oxygen Delivery Method Room Air Intake Visit Reasons: EP-coughing, sob Intake Note: Pt is here today for a [facility] visit. Pt c/o sob, cough feeling tired. Allergies sumatriptan [From IMITREX] Allergy (Intermediate, Verified 05/28/24 12:37) RASH Medication List - Last Reconciled 06/16/24 by Sandi Andrade MD albuterol sulfate 90 mcg/actuation 2 puffs inhalation Q6H PRN alendronate (Fosamax) 70 mg PO QWEEK amoxicillin-pot clavulanate 875-125 mg 1 tab PO BID atorvastatin 10 mg PO QPM cholecalciferol (vitamin D3) 50 mcg PO DAILY clonazepam 1 mg PO BID disposable gloves As directed-size medium fluticasone propion-salmeterol 250-50 mcg/dose (Wixela Inhub) 1 inh PO BID fluticasone propionate 50 mcg/actuation 1 spray intranasal DAILY gabapentin 400 mg PO BEDTIME incontinence pad, liner, disp As directed (4 pks per month) [Kneeling Scooter As directed] loratadine 10 mg PO DAILY PRN montelukast 10 mg PO DAILY naltrexone microspheres ER (Vivitrol) mg IM pantoprazole 40 mg PO BID prednisone mg PO Zepbound (tirzepatide (weight loss)) 2.5 mg (0.5 mL) subcut QWEEK NS Tobacco use date assessed: 05/28/24 Dental Screening Dental Screen Date: 05/28/24 HPI EP-coughing, sob HPI Details Pt c/o persistent productive cough, sinus congestion, wheezing for 1 week. Pt has been taking Z maryjo and Prednisone 50 mg for 5 days the last dose today. Pt has been using albuterol inhaler up to 3 times a day. Patient continues to use Wixela regularly. For seasonal allergies she has been taking loratadine montelukast and has an appointment with the label operator next month [facility] Medical History Weakness generalized Nocturnal hypoxemia Restrictive lung disease Musculoskeletal pain Anxiety and depression Ex-smoker Allergic rhinitis Cataract Vitamin B12 deficiency Vitamin D insufficiency GERD (gastroesophageal reflux disease) ETOH abuse Migraine SUNSHINE on CPAP COPD (chronic obstructive pulmonary disease) Surgical History History of esophagogastroduodenoscopy (EGD) H/O colonoscopy S/P PRINCESS (total abdominal hysterectomy) History of total hysterectomy Family History Father Alcoholic Mother Diabetes mellitus HTN (hypertension) Mental health disorder Brother Substance use disorder Mental health disorder Brother Substance use disorder Daughter Mental health disorder Brother Substance use disorder Social History Household Members: Spouse Housing: House Do you presently have visiting nurse or other home services: No Alcohol intake: former Comment: all counts correct Patient Tobacco Use Status: Former Tobacco user Tobacco use type: Cigarette e-Cigarette/Vaping Use: Never Used Second Hand Smoke Exposure: No Substance Use Type: Crack/Cocaine Advance Directives Date on File: 02/28/22 service: No Current occupational status: disabled 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 Angelo Oseguera, Marzena Parker, Tony Vick and colleagues, with an educational gee from [employer]. Review of Systems Const All systems reviewed & are unremarkable except as noted in HPI and below Eyes Reports no additional complaints ENT Reports no additional complaints Card Reports no additional complaints Resp Reports no additional complaints GI Reports no additional complaints Physical exam (Primary Care) Vital Signs: Last Vital Signs Pulse 100 06/16/24 12:47 Resp 20 06/16/24 12:47 BP 110/66 06/16/24 12:47 Pulse Ox 95 06/16/24 12:47 Oxygen Delivery Method Room Air 06/16/24 12:47 BMI result Body Mass Index 33.6 Tobacco/Smoking Status: Tobacco use Status Tobacco use date assessed 05/28/24 06/16/24 12:47 Patient Tobacco Use Status Former Tobacco user 06/16/24 12:47 Tobacco use type Cigarette 06/16/24 12:47 e-Cigarette/Vaping Use Never Used 06/16/24 12:47 Thrive Assessment: Date of Thrive Assessment Date Thrive assessed 05/28/24 06/16/24 12:47 Const General: no acute distress HENMT Head: Yes normal to inspection Ears: TM's normal bilaterally General nose exam: Abnormal mucous membranes and turbinates present erythematous Face and sinus: Yes sinus tenderness Throat: Yes posterior oropharynx abnormal and Yes postnasal drainage Eyes General: appearance normal, both eyes and all related structures Neck Neck: Yes no lymphadenopathy and Yes supple Resp Effort & Inspection: normal respiratory effort Auscultation: diminished lung sounds Cardio Rhythm: regular rhythm Heart sounds: S1 normal heart sound present and S2 normal heart sound present Coding Level of Care Code Est Pt Level 3 (88752) Diagnoses Sinusitis J32.9 COPD (chronic obstructive pulmonary disease) J44.9 Assessment & Plan Assessment & Plan (1) Sinusitis: Code(s): J32.9 - Chronic sinusitis, unspecified Category: Medical Plan: Augmentin 875 b.i.d. for 10 days is prescribed and supportive care discussed with the patient (2) COPD (chronic obstructive pulmonary disease): Comment: PFT 09/2018, Mild obstructive Airways disorder . SPIROMETRY IN 2021 SHOWED ONLY MODERATE DEGREE OF RESTRICTIVE PULMONARY DISORDER. BUT SHE HAS BEEN USING ADVAIR WELL INCRUSE ELLIPTA REGULARLY. SPIROMETRY ON HER LAST VISIT SHOWED MILD RESTRICTIVE PULMONARY DISEASE AND NO EVIDENCE OF OBSTRUCTIVE AIRWAY DISORDER. Code(s): J44.9 - Chronic obstructive pulmonary disease, unspecified Category: Medical Plan: Continue Wixela and albuterol p.r.n. Medications: New amoxicillin-pot clavulanate 875-125 mg 1 tab PO BID 20 tabs 0RF albuterol sulfate 0.63 mg (3 mL) inhalation QID PRN 90 mL 1RF shortness of breath or wheezing
[2024-06-16 12:47] VITALS: BP 110/66; PULSE 100; RESP 20; O2SAT 95; BMI 33.6
--- OUTSIDE RECORDS SUMMARY | 2024-06-16 13:54 | XMS_ITS | Continuity of Care Document ---
Author Organization [facility] [place] - [facility] Address [address] [place] [id number] Care Team Providers Care Linesperson Name Role Phone HIM CCA OTHER TOM MARTINEZ Primary Care Provider [phone] Assessment Encounter Date Assessment Date Assessment LastModified by Organization Details LastModified Time 06/12/2024 06/12/2024 I have reviewed and agree with the assessment and plan as documented by the plane tableman. I provided real-time medical direction for this encounter and was immediately available to provide additional phone-based assistance as needed. History as noted in EMR and by plane tableman. I would add / emphasize: Patient with history of COPD seen for worsening dyspnea for the last 4 to 5 days. Using inhaler without relief. Diminished left lower lobe breath sounds per report. AVSS and well-appearing otherwise with very mild tachypnea. Cough productive of yellow sputum. Similar symptoms in patient's daughter per report. COVID and flu negative. May be COPD exacerbation with viral trigger versus early pneumonia. Opted to treat with short burst of prednisone and a course of azithromycin with instructions to follow-up closely with PCP for reevaluation. Red flags that should prompt ED presentation discussed and patient verbalizes understanding. pallfather Not available 06/12/2024 18:18:48 Plan of Treatment Reminders Order Date Submit Date Provider Last Modified By Organization Details Last Modified Time Details Appointments None recorded. Lab rapid SARS CoV 2 Ag, QL IA, respiratory specimen [address], [id number] 18:32:08 rapid flu (A+B) [address], [phone] 18:32:29 Referral None recorded. Procedures None recorded. Surgeries None recorded. Imaging None recorded. Medication Orders prednisone 10 mg tablet 2024 025 [facility] #[id number], [address] [place], [address], 5 17:19:28 azithromyci n 250 mg tablet 2024 025 [facility] #[id number], [address] [place], [address], 5 17:19:28 Patient TargetsNo targets recorded. Patient InstructionsNo instructions recorded. Reason for Referral None Reported. Results Created Date Observation Date Name Description Value Unit Range Abnormal Flag Note LastModifiedBy Organization Detail LastModifiedTime Result Notes None recorded. Medical Equipment None Reported. Allergies Allergen ID Allergen Name Allergen Category Reaction Reaction Severity Criticality Documentation Date Start Date Code Code System Note Provider Name and Address Organization Details Recorded Time 35509 sumatript an medicatio n Not available Not available Not available 06/12/2024 52175 RxNorm Not Available [facility] - production 5 08:53:30 1751 Lamictal medicatio n Not available Not available Not available 02/22/2022 57912 2 RxNorm Not Available [facility] - production 5 08:53:30 1752 Imitrex medicatio n Not available Not available Not available 02/22/2022 05497 3 RxNorm Marta Self MD [address] [place] [address],[address], [place], [phone] [place] [address] - [facility] 3 15:26:04 Medications Name Sig Start Date [...] No t Available prednisone 10 mg tablet Take 5 tablets every day by oral route in the morning for 5 days. 2024 active Not Available Not Available Not Avai lable doxycycline hyclate 100 mg capsule TAKE 1 [...] t Available azithromycin 250 mg tablet TAKE 1 TABLET (250 MG) BY ORAL ROUTE ONCE DAILY FOR 4 DAYS 2024 active Not Available Not Available Not Avai lable ibuprofen 800 mg tablet TAKE 1 TABLET [...] Available No t Available Vitals Date Recorded Oxygen saturation Oxygen saturation in Arterial blood by Pulse oximetry Heart rate Body weight Body temperature Respiratory rate Body height Systolic blood pressure Diastolic blood pressure Provider Name and Address Organization Details Last Updated DateTime 5 97 % 97 % 69 /min 17422.4 4 g 98 [degF] 20 /min 162.56 cm 122 mm[Hg] 83 mm[Hg] Not Available [facility] - production 17:16:04 Social History None recorded. Functional Status None recorded. Mental Status None recorded. Family History Nothing Reported. Medical History No medical history recorded. Gynecological HistoryNo gynecological history recorded. Obstetrics History GPAL:G 0 P 0 0 0 0 Past Encounters Encounter ID Performer Location Encounter Start Date Encounter Closed Date Diagnosis/Indication Diagnosis SNOMED-CT Code Diagnosis ICD10 Code Diagnosis Note [id number] Champ Rosario MD [facility] - [facility] [address] [place] [phone] 06/12/2024 17:15:57 06/12/2024 19:59:23 Acute exacerbation of chronic obstructive pulmonary disease 833487652 J44.1 Health Concerns Section Related Observation LastModified by Organization Detai ls LastModified Time None Recorded Concern Status LastModified by Organization Details LastModified Time None Recorded Payers Encounter Date Sequence Insurance Name Policy Number Policy Prather Covered Member ID Prather Member ID Guarantor Name 06/12/2024 1 [facility] - DOS ON OR AFTER 2022 - DUAL ELIGIBLE - INTERMEDIATE OPTIONS AND ONE CARE (MEDICARE REPLACEMENT/ADV ANTAGE - HMO) nAnie Pak [id number] Annie Pak Notes Date Note Type Note Provider Name and Address Organization Details Recorded Time 06/12/2024 text/html [facility] Nurse Triage Notes (Tara Cramer): Reason For Request: cough/congestion Patient Reports: Cough, fever greater than 2 days ; History of asthma, increased use of inhaler; COPD; Sputum increase ; Cough; Shortness of breath with exertionDenies: Increased work of breathing/labored ? with or without fever Unable to speak in full sentences without distress Discoloration of skin -cyanosis Needs to sleep sitting up, can? t catch breath Shortness of breath in setting of confusion Lower extremity swelling COVID Exposure Pain with inspiration Chief Complaints: Common ColdPMH: Chronic Obstructive Pulmonary Disease (COPD), Asthma, Hyperlipidemia, Bipolar DisorderPMH Reviewed at 06/12/2024:53Allergies Reviewed at 06/12/2024:53Comments: 58 y.o female complains of Common Cold Pt calling for cold symptoms for 4 days. She has a productive cough with yellow sputum. She denies fever/ chills. She wears o2 at night and is having trouble due to the congestion. She feels weak and tired. She took a COVID test which is negative.She has body aches , no PACHECO. She does have mild sob with some exp wheeze, not audible on the phone. She has been using her recuse inhaler. 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 She has been taking OTC cough, with changeI provided information on the mobile health provider response time and advised the patient and/or caregiver to monitor reported signs and symptoms. I discussed the warning signs of when to seek emergency care. Domestic Cleaner Organization Information for Bessy Espinal Legal Name: [facility] TransportationAddr ess: [address], [place] [address], USMedical Director: Gregg Peck [facility] No.: [id number] Domestic Cleaner POC Test Results from Bessy Espinal Rapid COVID antigen (13:55:03)COVID: -Attachments uploaded as part of this test result can be found under Documents section. Rapid influenza antigen (13:55:03)Flu: -Attachments uploaded as part of this test result can be found under Documents section. .................. .................. .................. .................. .................. .................. .................. ............... Domestic Cleaner Note From Bessy Espinal: [facility] dispatched to above address for 58yof c/o worsening sob over the past 4-5 days. Pt aox4, found seated on couch in no apparent distress, airway patent due to speech, breathing adequate ora, circ strong reg radial pulse. Skin PWD. Pt states she has COPD, took inhaler this morning with no relief of SOB, states current symptoms do not feel like COPD exacerbation. Pt states she is concerned about having Covid, was hospitalized 3x years ago in serious condition. Pt negative on a home Covid test 2x days ago. Pt spo2 97% at rest, lungs: right side clear all vaughn, l side diminished lower lobe unilaterally. Pt c/o productive cough with yellow sputum. ?pneumonia. Pt has hx aspiration pneumonia. Pt states daughter who lives with her has been sick with similar symptoms. Pt given at home Covid/flu test, negative for both. [facility] called for orders for azithromycin and prednisone. Orders confirmed, 500mg PO azithromycin, 40mg PO prednisone. Pt able to take all PO medications without incident. Pt advised that should her symptoms continue to worsen and she begins to exhibit ? r ed flag? symptoms, she should seek immediate hospital care. [facility] 3 clear without incident. .................. .................. .................. .................. .................. .................. .................. ............... [facility] Consulted: Champ Rosario .................. .................. .................. .................. .................. .................. .................. ............... Disposition: Fulfilled Champ Rosario MD [address] [place] [address],[address], [place], [phone], [facility] 06/12/2024 18:18:57 OBGyn Episode No OBEpisode recorded.
--- OUTSIDE RECORDS SUMMARY | 2024-06-16 13:54 | XMS_ITS | Data Portability ---
Author Organization [employer], [facility] in [facility] [employer] Address [address] [place] [address] Care Team Providers Care Bite Block Maker Name Role Phone HIM CCA OTHER TOM MARTINEZ Primary Care Provider Assessment Encounter Date Assessment Date Assessment LastModified by Organization Details LastModified Time 03/19/2022 03/19/2022 service called for burning nose [...] assessment and plan as documented by the board saw runner. I provided real time medical direction for this encounter and was immediately available to provide additional phone based assistance as needed. History as noted by board saw runner. Pt reports that earlier today while walking [...] also need to follow up with a cadd technician/ortho pedic medication specialist after the diagnosis is made and she can get a referral from the ED or urgent care. btils Not available 06/21/2022 16:50:16 06/12/2024 06/12/2024 I have reviewed and agree with the assessment and plan as documented by the board saw runner. I provided real-time medical direction for this encounter and was immediately available to provide additional phone-based assistance as needed. History as noted in EMR and by board saw runner. I would add / emphasize: Patient with [...] Ag, QL IA, respiratory specimen 2024 025 [facility], [address] [place] [address], [phone] 18:32:08 rapid flu (A+B) 2024 025 [facility], [address] [place] [address], [phone] 18:32:29 SARS CoV 2 RNA (COVID-19), QL, environmental control administrator-PCR, respiratory specimen 2023 024 [facility] (Centralized Electronic Ordering - All Locations), Patient Can Go To The Location Of Their Choice, [id number] 11:53:13 rapid flu (A+B) 2023 024 [facility], [address] [place] [address], [id number] 4 18:15:50 Referral None recorded. Procedures None recorded. Surgeries None recorded. Imaging None recorded. Medication Orders prednisone 10 mg tablet 2024 025 [facility][id number], [address] [place] [address], [address], 5 17:19:28 azithromyci n 250 mg tablet 2024 025 [id number] [address] [place] [address], [address], 5 17:19:28 prednisone 10 mg tablet 2023 024 [facility], [address] [place] [address], [address], 4 17:07:19 Patient TargetsNo targets recorded. Patient InstructionsNo instructions recorded. Reason for Referral None Reported. Results Created Date Observation Date Name Description Value Unit Range Abnormal Flag Note LastModifiedBy Organization Detail LastModifiedTime 02/22/1902/22/2022 BMP, serum or plasm a BUN 7 Not Available Main - [facility] [address], [phone] 02/22/2022 15:35:55 02/22/19 23 02/22/2022 BMP, serum or plasm a Ca I Ca 1.14 Not Available [facility] - [address], [phone] 02/22/2022 15:35:55 02/22/19 23 02/22/2022 BMP, serum or plasm a CI- 100 Not Available Main - [facility] [address], [address] 02/22/2022 15:35:55 02/22/19 23 02/22/2022 BMP, serum or plasm a CRE 0.7 Not Available Main - [facility] [address], [address] [place] [address] 02/22/2022 15:35:55 02/22/19 23 02/22/2022 BMP, serum or plasm a GLU 127 Not Available Main - [facility] [address], [address] [place] [address] 02/22/2022 15:35:55 02/22/19 23 02/22/2022 BMP, serum or plasm a K+ 3.7 Not Available Main - [facility] [address], [address] [place] [address] 02/22/2022 15:35:55 02/22/19 23 02/22/2022 BMP, serum or plasm a Na+ 139 Not Available Main - [facility] [address], [address] [place] [address] 02/22/2022 15:35:55 02/22/19 23 02/22/2022 BMP, serum or plasm a tCO2 28 Not Available Main - [facility] [address], [address] [place] [address] 02/22/2022 15:35:55 02/22/19 23 02/22/2022 rapid flu (A+B) Flu negati ve Not Available Main - [facility] ed [address] [place] [address], [address] [place] [address] 02/22/2022 15:35:38 02/22/19 23 02/22/2022 rapid SARS CoV 2 Ag, QL IA, respi rator y speci men rapid SARS CoV 2 Ag, QL IA, respiratory specimen negati ve Not Available [facility] - [facility] ed [address] [place] [address], [address] [place] [address] 02/22/2022 15:35:37 Result Notes None recorded. Medical Equipment None Reported. Allergies Allergen ID Allergen Name Allergen Category Reaction Reaction Severity Criticality Documentation Date Start Date Code Code System Note Provider Name and Address Organization Details Recorded Time 59783 sumatript an medicatio n Not available Not available Not available 06/12/2024 23124 RxNorm Not Available [facility] - production 5 08:53:30 1751 Lamictal medicatio n Not available Not available Not available 02/22/2022 37987 2 RxNorm Not Available [facility] - production 5 08:53:30 1752 Imitrex medicatio n Not available Not available Not available 02/22/2022 43718 3 RxNorm Marta Self MD [address] [facility],[address], [place], [address] , CLEM EWING 15:26:04 Medications Name Sig Start Date Stop [...] Address Organization Details Last Updated DateTime 4 20113.4 4 g 162.56 cm 16 /min 97.3 [degF] 82 /min 100 % 100 % 115 mm[Hg] 78 mm[Hg] Not Available [facility] - production 4 16:55:55 Date Recorded Oxygen saturation Oxygen saturation in Arterial blood by Pulse oximetry Heart rate Body weight Body temperature Respiratory rate Body height Systolic blood pressure Diastolic blood pressure Provider Name and Address Organization Details Last Updated DateTime 5 97 % 97 % 69 /min 06709.4 4 g 98 [degF] 20 /min 162.56 cm 122 mm[Hg] 83 mm[Hg] Not Available [facility] - production 5 17:16:04 Date Recorded Respiratory rate Oxygen saturation Oxygen saturation in Arterial blood by Pulse oximetry Heart rate Body temperature Body weight Systolic blood pressure Diastolic blood pressure Provider Name and Address Organization Details Last Updated DateTime 3 18 /min 91 % 91 % 110 /min 98.2 [degF] 07702.4 8 g 130 mm[Hg] 78 mm[Hg] Not Available [facility] - production 3 17:58:42 Date Recorded Respiratory rate Heart rate Oxygen saturation Oxygen saturation in Arterial blood by Pulse oximetry Body temperature Systolic blood pressure Diastolic blood pressure Provider Name and Address Organization Details Last Updated DateTime 3 18 /min 94 /min 98 % 98 % 98.2 [degF] 136 mm[Hg] 79 mm[Hg] Not Available [employer] [facility] 3 15:27:16 Social History None recorded. Functional [...] Note 6765 Shivam Claudio MD Main - [address] [phone] 02/15/2022 13:25:36 02/19/2022 09:21:06 Cough 93831821 R05.9 s/p COVID. Mild wheezing. O2 sats stable. Will give an additional neb and prescribe neb treatments . If symptoms persist, recommend visit for possible treatment of COPD exacerbati on 6805 [facility]audio MD [facility] [address] [place] [address] 02/16/2022 14:19:43 02/19/2022 10:07:19 Acute exacerbation of chronic obstructive pulmonary disease 474793606 J44.1 Will treat empiricall y for COPD exacerbati on and add on an expectoran t 6986 Marta Self MD Main - [address] [phone] 02/22/2022 15:25:37 02/27/2022 11:10:24 Acute exacerbation of chronic obstructive pulmonary disease 058229612 J44.1 with possible pneumonia- patient would benefit [...] knows our number can call for repeat [facility] visit if she feels she needs it. Red flags reviewed as above 7574 Bj Mcqueen MD Main - [facility] [address] [place] [phone] 03/19/2022 17:58:31 03/21/2022 09:18:52 Pain of nose 133250636 J34.89 [id number] Rinku Houser MD Main - [facility] [address] [place] [address] 06/21/2022 15:27:15 06/22/2022 14:48:09 Fracture of foot 27857316 S92.902A [id number] Elda Jose MD Main - [facility] [address] [place] [phone] 11/12/2022 10:56:13 11/12/2022 22:59:10 Upper respiratory infection 49340842 J06.9 URI sx starting on Saturday. SpO2 [...] Reviewed warning s/sx with pt. Pt and board saw runner agree with plan. [id number] Deacon Easley MD Main - [facility] [address] [place] [phone] 08/21/2023 16:55:50 08/21/2023 19:47:16 Acute exacerbation of chronic obstructive pulmonary disease [id number] J44.1 This 57-year-ol d female with COPD has has a cry cough and wheezing for three days with a low grade fever. I ordered a Prednisone taper and recommende d Mucinex or Robitussin . She will continue using her usual inhalers and follow-up with her PCP. The patient agreed with this plan. 53700 Champ Rosario MD Main - [facility] [address] [place] [phone] 06/12/2024 17:15:57 06/12/2024 19:59:23 Acute exacerbation of chronic obstructive pulmonary disease [id number] J44.1 Health Concerns Section Related Observation LastModified by Organization Detai ls LastModified Time None Recorded Concern Status LastModified by Organization Details LastModified Time None Recorded Advance Directives Directive None Recorded Payers Encounter Date Sequence Insurance Name Policy Number Policy Prather Covered Member ID Prather Member ID Guarantor Name 03/19/2022 1 [facility] - DOS PRIOR TO 2022 - DUAL ELIGIBLE (MEDICARE REPLACEMENT/ADV ANTAGE - HMO) Annie Pak [id number] Annie Pak 06/21/2022 1 [facility] - DOS PRIOR TO 2022 - DUAL ELIGIBLE (MEDICARE REPLACEMENT/ADV ANTAGE - HMO) Annie Pak [id number] Annie Pak 11/12/2022 1 [facility] - DOS ON OR AFTER 2022 - DUAL ELIGIBLE - SHELTER OPTIONS AND ONE CARE (MEDICARE REPLACEMENT/ADV ANTAGE - HMO) Annie Pak [id number] Annie Batesjames 08/21/2023 1 [facility] - DOS ON OR AFTER 2022 - DUAL ELIGIBLE - SHELTER OPTIONS AND ONE CARE (MEDICARE REPLACEMENT/ADV ANTAGE - HMO) Annie Batesjames [id number] Annie Batesjames 06/12/2024 1 [facility] - DOS ON OR AFTER 2022 - DUAL ELIGIBLE - SHELTER OPTIONS AND ONE CARE (MEDICARE REPLACEMENT/ADV ANTAGE - HMO) Annie Batesjames [id number] Annie Pak Notes Date Note Type Note Provider Name and Address Organization Details Recorded Time 03/19/2022 text/html [facility] Nursing Assessment: Chief Complaints: URI PMH: COPD/Asthma, Hypertension Comments: Member calling for [facility] visit for eval nasal congestion and burning in nostrils x 3-4 days attempt [place] gel with some relief deny fevers cont with chills recent treatment for pneumonia Bj Mcqueen MD [address] [facility],[address], [place], [address], [facility] 03/19/2022 18:12:52 06/21/2022 text/html This was a supervised home visit with board saw runner Suzanne Morelos. [facility] Nursing Assessment: Reason For [...] would like to be evaluated by [facility]. .................. .................. .................. .................. .................. .................. .................. ............... French Drawer Note From Suzanne Morelos: Dispatched Urgent to [...] States she has taken APAP prior to [facility] arrival. Patient rested and iced extremity prior to our arrival. Patient noted to have swelling and bruising to the lateral aspect of the left dorsal foot with the contusion noted to be roughly [id number]. Pedal pulses present. Pt reports secondary complaint of left knee pain due to the position she landed in. Pt denies head, neck, or back pain. Pt denies LOC. Vitals as noted. Pt denies any additional complaints at this time. No other gross or obvious signs of trauma noted. [facility] consulted and recommends Pt be evaluated at an Urgent Care for X-Rays R/O Fx. Pt states the local Urgent Care closes soon and she would need to go to local ED. Transport via local EMS offered to Pt. Pt states she will drive herself to local ED AMA. Completed by Ta Aguilera MA [id number] .................. .................. .................. .................. .................. .................. .................. ............... Disposition: Fulfilled Rinku Houser MD [address] [facility],[address], [place], [address], [facility] 06/21/2022 16:50:32 11/12/2022 text/html CRC Nursing Assessment: [...] COVID test negative. Member c/o rib pain .................. .................. .................. .................. .................. .................. .................. ............... French Drawer Note From rAtis Kate: Dispatched to the call address for [...] Red flags discussed. ALL times are approx. .................. .................. .................. .................. .................. .................. .................. ............... Disposition: Fulfilled Elda Jose MD [address] [place] [address],[address], [place], [address], [facility] 11/12/2022 16:08:23 08/21/2023 text/html CRC Nurse Triage Notes (Tara Cramer): Reason For Request: Pt reporting severe cough>chills>nause a>temperature that has been on/off>headache>st ates yesterdays covid test was negative>some sob due to cough, nose is stuffy Chief Complaints: Cough, Fever/Chills PMH: COPD/Asthma, Hypertension Comments: Credit Controller verified the member's name//address and phone number. [...] s/s and seek emergency treatment if needed French Drawer POC Test Results from Leon Ramirez - ALS Rapid COVID antigen (17:31:46) COVID: - Rapid influenza antigen (17:31:48) Flu: - .................. .................. .................. .................. .................. .................. .................. ............... French Drawer Note From Leon Ramirez: Smartcare visit for [...] recently discontinued from incruse inhaler. Consulted with [facility] Dr. Easley who ordered 60 mg of oral prednisone given on scene. Pt instructed to refill inhaler and picking tech some OTC mucinex as well. Reviewed red flags for ED. Patient education provided. .................. .................. .................. .................. .................. .................. .................. ............... Disposition: Cristine Deacon Easley MD [address] [facility],[address], [place], [address], CLEM EWING 08/21/2023 17:32:43 06/12/2024 text/html CRC Nurse Triage Notes (Tara [...] her recuse inhaler. 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 She has been taking OTC cough, with changeI provided information on the mobile health provider response time and advised the patient and/or caregiver to monitor reported signs and symptoms. I discussed the warning signs of when to seek emergency care. French Drawer Organization Information for Bessy Espinal Legal Name: [facility] TransportationAddr ess: [address] [facility], [place] [address], Medical Director: Gregg Peck [facility] No.: [id number] French Drawer POC Test Results from Bessy Espinal - ALS Rapid COVID antigen (13:55:03)COVID: -Attachments uploaded as part of this test result can be found under Documents section. Rapid influenza antigen (13:55:03)Flu: -Attachments uploaded as part of this test result can be found under Documents section. .................. .................. .................. .................. .................. .................. .................. ............... French Drawer Note From Bessy Espinal: [facility] 3 dispatched to above address for 58yof [...] at home Covid/flu test, negative for both. [facility] called for orders for azithromycin and prednisone. Orders confirmed, 500mg PO azithromycin, 40mg PO prednisone. Pt able to take all PO medications without incident. Pt advised that should her symptoms continue to worsen and she begins to exhibit ? r ed flag? symptoms, she should seek immediate hospital care. [facility] 3 clear without incident. .................. .................. .................. .................. .................. .................. .................. ............... [facility] Consulted: Champ Rosario .................. .................. .................. .................. .................. .................. .................. ............... Disposition: Fulfilled Champ Rosario MD [address] [facility],[address] [facility], [place], [address], CLEM EWING 06/12/2024 18:18:57 OBGyn Episode No OBEpisode recorded.
--- OUTSIDE RECORDS SUMMARY | 2024-06-16 13:54 | XMS_ITS | Clinical Summary ---
Author Organization [employer] Address [address] [place] [address] Care Team Providers Care Research Agricultural Engineer Name Role Phone Sandi Andrade MD Primary Care Provider [phone] Allergies Active Allergy Reactions Criticality Noted Date [...] Dysphagia GERD (gastroesophageal reflux disease) Aspiration pneumonia ([facility] V24, [facility] V28) Chronic constipation Alcohol use disorder COPD (chronic obstructive pulmonary disease[facility] ([facility] V24, [facility] V28) Bipolar 1 disorder ([facility] V24, [facility] V28) Obesity SUNSHINE (obstructive sleep apnea) HTN [...] patient's age to complete this topic Insurance [facility] MEDICARE Member Subscriber Plan / Payer (Ef fective 2016-Present) Name:Annie Pak Relation to Subscriber:Self Name:Annie Pak Payer ID:[id number] Group ID:[id number] Type:Not on file Address: [place] [address] [place] [address] Care Teams Research Agricultural Engineer Relationship Specialty Start Date End Date Sandi Andrade MD [address] [place] [address] PCP - General Internal Medicine 01/01/24
== END 2024-06-16 13:20 | disposition home or self-care (01) ==
LOC: HO.HMCC 12:46
PROVIDERS: PCP Internal Medicine; Visit Provider Internal Medicine
DX: J32.9 Chronic sinusitis, unspecified (principal); J44.9 Chronic obstructive pulmonary disease, unspecified

== ENCOUNTER → 2024-06-16 12:46 | Outpatient (BNVA) | payer OTHER, SELFPAY | PROVIDERS: PCP Internal Medicine; Visit Provider Internal Medicine | DX: J32.9 Chronic sinusitis, unspecified (principal); J44.9 Chronic obstructive pulmonary disease, unspecified | CPT/HCPCS: 99212 ==

== ENCOUNTER 2024-06-24 11:38 | Outpatient (AMB) | payer OTHER, SELFPAY ==
[2024-06-24 11:39] VITALS: BP 108/78; PULSE 95; TEMP 36.7; O2SAT 94; BMI 33.6
--- NOTE | 2024-06-24 11:39 | AM.OFFWIN_ITS ---
Intake Vital Signs 06/24/24 11:39 Height 5 ft 4 in Weight 196 lb BMI 33.6 BP 108/78 Blood Pressure Location Lt brachial Position Sitting Pulse 95 Pulse Source Pulse Oximeter Temp 98.0 F Temp Source Oral Pulse Oximetry (%) 94 Oxygen Delivery Method Room Air Intake Visit Reasons: EP Boil * Patient Tobacco Use Status: Former Tobacco user Allergies sumatriptan [From IMIT[facility]X] Allergy (Intermediate, Verified 06/24/24 11:39) RASH Do you need a note to return to daycare/school/sports/work: No HPI HPI Comments History of Present Illness Details History of Present Illness - The patient is a 58-year-old female pr esenting with a boil in the genital area. - Initially, the boil was large but has reduced in size over several weeks, yet remains uncomfortable and tender - The boil is hard, and had been manuall y drained once by the patient with only temporary reduction in size. - There is a history of a similar infect ion treated successfully by incision and drainage when the patient was 23 years old. - The patient recently began an unrelate d antibiotic course, Augmentin, for a respiratory condition, with no effect on the boil. - No fever or new major symptoms present . Physical Exam General: Cooperative, healthy appearing, comfortable, no acute distress and well developed Orientation: Patient oriented x3 Limitations: No limitations Head: Normal to inspection Ears: Hearing grossly normal bilaterally Nose: Normal External nose present Face and sinus: Normal facial exam Eyes: Appearance normal, both eyes and all related structures Neck: Normal visual inspection and Yes full ROM Respiratory: Normal respiratory effort and able to speak in complete sentences. : to the right of labia has 0.75 cm indurated ttp round, firm area, no drainage or warmth noted Skin: as above Neuro: Patient oriented x3 Extremities: Normal to inspection PFSH Medical History Weakness generalized Nocturnal hypoxemia Restrictive lung disease Musculoskeletal pain Anxiety and depression Ex-smoker Allergic rhinitis Cataract Vitamin B12 deficiency Vitamin D insufficiency GERD (gastroesophageal reflux disease) ETOH abuse Migraine SUNSHINE on CPAP COPD (chronic obstructive pulmonary disease) Surgical History History of esophagogastroduodenoscopy (EGD) H/O colonoscopy S/P PRINCESS (total abdominal hysterectomy) History of total hysterectomy Family History Father Alcoholic Mother Diabetes mellitus HTN (hypertension) Mental health disorder Brother Substance use disorder Mental health disorder Brother Substance use disorder Daughter Mental health disorder Brother Substance use disorder Social History Household Members: Spouse Housing: House Do you presently have visiting nurse or other home services: No Alcohol intake: former Comment: all counts correct Patient Tobacco Use Status: Former Tobacco user Tobacco use type: Cigarette e-Cigarette/Vaping Use: Never Used Second Hand Smoke Exposure: No Substance Use Type: Crack/Cocaine Advance Directives Date on File: 02/28/22 service: No Current occupational status: disabled 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 She was instructed to continue her Augmentin. Concurrently, I have provided Diflucan fluconazole to prevent yeast infections, noting the risk due to dual antibiotic therapy. Specific instructions were provided on the use of the medication and steps to take if infection indicators arise. The patient was advised to avoid excessive sunlight exposure while on doxycycline and informed of the expected resolution without the necessity for surgical intervention, given the cyst's chronicity and firm nature. Patient was informed and verbally consented to the use of an ambient scribe for clinic note documentation during this visit. Medications: New fluconazole may repeat second dose 72 hrs after first dose if symptoms persist 150 mg PO Q3D 2 tabs 0RF doxycycline hyclate 100 mg PO BID 14 tabs 0RF Coding Level of Care Code Est Pt Level 3 (98765) Diagnoses Abscess L02.91
--- OUTSIDE RECORDS SUMMARY | 2024-06-24 12:31 | XMS_ITS | Clinical Summary ---
Author Organization [employer] Address [address] [place] [address] Care Team Providers Care Frozen Pie Maker Name Role Phone Sandi Andrade MD Primary Care Provider [phone] Allergies Active Allergy Reactions Criticality Noted Date [...] Dysphagia GERD (gastroesophageal reflux disease) Aspiration pneumonia ([facility] V24, [facility] V28) Chronic constipation Alcohol use disorder COPD (chronic obstructive pulmonary disease) ([facility] V24, [facility] V28) Bipolar 1 disorder ([facility] V24, [facility] V28) Obesity SUNSHINE (obstructive sleep apnea) HTN [...] patient's age to complete this topic Insurance [facility] Member Subscriber Plan / Payer (Ef fective 2016-Present) Name:Annie Pak Relation to Subscriber:Self Name:Annie Pak Payer ID:[id number] Group ID:[id number] Type:Not on file Address: [place] [address] [address] [address] Care Teams Frozen Pie Maker Relationship Specialty Start Date End Date Sandi Andrade MD [address] [facility] [place] [address] PCP - General Internal Medicine 01/01/24
--- OUTSIDE RECORDS SUMMARY | 2024-06-24 12:32 | XMS_ITS | Data Portability ---
Author Organization [employer] Address [address] [place] [id number] Care Team Providers Care Manager Strategic Alliances Name Role Phone HIM CCA OTHER TOM MARTINEZ Primary Care Provider [phone] Assessment Encounter Date Assessment Date Assessment LastModified [...] assessment and plan as documented by the burial needs salesperson. I provided real time medical direction for this encounter and was immediately available to provide additional phone based assistance as needed. History as noted by burial needs salesperson. Pt reports that earlier today while walking [...] also need to follow up with a frog farmer/ortho pedic accounts receivable specialist after the diagnosis is made and she can get a referral from the ED or urgent care. btils Not available 06/21/2022 16:50:16 06/12/2024 06/12/2024 I have reviewed and agree with the assessment and plan as documented by the burial needs salesperson. I provided real-time medical direction for this encounter and was immediately available to provide additional phone-based assistance as needed. History as noted in EMR and by burial needs salesperson. 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 Procedures None recorded. Surgeries None recorded. Imaging None recorded. Medication Orders prednisone 10 mg tablet 2024 025 [facility] #[id number], [address] [place] [address], [address], 5 17:19:28 azithromyci n 250 mg tablet 2024 025 [id number] [address] [place] [address], [address], 5 17:19:28 prednisone 10 mg tablet 2023 024 [id number], [address] [place] [address], [address], 4 17:07:19 Patient TargetsNo targets recorded. Patient InstructionsNo instructions recorded. Reason for Referral None Reported. Results Created Date Observation Date Name Description Value Unit Range Abnormal Flag Note LastModifiedBy Organization Detail LastModifiedTime 02/22/1902/22/2022 BMP, serum or plasm a BUN 7 Not Available [facility] - [facility] [address], [address] 02/22/2022 15:35:55 02/22/19 23 02/22/2022 BMP, serum or plasm a Ca I Ca 1.14 Not Available [facility] - [address], [address] 02/22/2022 15:35:55 02/22/19 23 02/22/2022 BMP, serum or plasm a CI- 100 Not Available Main - [facility] [address], [address] 02/22/2022 15:35:55 02/22/19 23 02/22/2022 BMP, serum or plasm a CRE 0.7 Not Available Main - [facility] [address], [address] [place] [address] 02/22/2022 15:35:55 02/22/19 23 02/22/2022 BMP, serum or plasm a GLU 127 Not Available Main - [facility] [address], [address] [place] [address] 02/22/2022 15:35:55 02/22/19 23 02/22/2022 BMP, serum or plasm a K+ 3.7 Not Available Main - [facility] [address], [address] [place] [address] 02/22/2022 15:35:55 02/22/19 23 02/22/2022 BMP, serum or plasm a Na+ 139 Not Available Main - [facility] [address], [address] [place] [address] 02/22/2022 15:35:55 02/22/19 23 02/22/2022 BMP, serum or plasm a tCO2 28 Not Available Main - [facility] [address], [address] [place] [address] 02/22/2022 15:35:55 02/22/19 23 02/22/2022 rapid flu (A+B) Flu negati ve Not Available Main - [facility] ed [address] [place] [address], [address] [place] [address] 02/22/2022 15:35:38 02/22/19 23 02/22/2022 rapid SARS CoV 2 Ag, QL IA, respi rator y speci men rapid SARS CoV 2 Ag, QL IA, respiratory specimen negati ve Not Available [facility] ed [address] [place] [address], [address] [place] [address] 02/22/2022 15:35:37 Result Notes None recorded. Medical Equipment None Reported. Allergies Allergen ID Allergen Name Allergen Category Reaction Reaction Severity Criticality Documentation Date Start Date Code Code System Note Provider Name and Address Organization Details Recorded Time 41012 sumatript an medicatio n Not available Not available Not available 06/12/2024 53248 RxNorm Not Available [facility] - production 5 08:53:30 1751 Lamictal medicatio n Not available Not available Not available 02/22/2022 19524 2 RxNorm Not Available [facility] - production 5 08:53:30 1752 Imitrex medicatio n Not available Not available Not available 02/22/2022 17144 3 RxNorm Marta Self MD [address] [facility],[address], [place], [address] , [facility] 15:26:04 Medications Name Sig Start Date Stop Date Status Note LastModified by Organization Details LastModified Time celecoxib 200 mg capsule TAKE 1 CAPSULE BY MOUTH TWICE A DAY active Not [...] Not Available No t Available albuterol sulfate 0.63 mg/3 mL solution for nebulization INHALE 1 VIAL BY NEBULIZER 4 TIMES A DAY NEEDED FOR SHORTNESS OF BREATH OR WHEEZING active Not Available Not Available Not Available clonidine HCl 0.1 mg tablet TAKE 1 TABLET BY MOUTH TWICE A DAY active Not Available Not Available No t Available prednisone 10 mg tablet TAKE 5 TABLETS EVERY DAY BY ORAL ROUTE IN THE MORNING FOR 5 DAYS. active Not Available Not Available Not Available doxycycline hyclate 100 mg capsule TAKE [...] ORAL ROUTE ONCE DAILY FOR 4 DAYS active Not Available Not Available No t Available ibuprofen 800 mg tablet TAKE 1 TABLET BY MOUTH EVERY 8 HOURS NEEDED FOR PAIN active Not Available Not Available No t Available benzonatate 200 mg capsule Take 1 capsule 3 times a day by oral route as needed. 2022 active Not Available Not Available Not Avai lable hydrocodone 5 mg-acetamino phen 325 mg tablet TAKE 1 TAB ORALLY EVERY 6 HOURS NEEDED FOR PAIN active Not Available Not Available No t Available meloxicam 15 mg tablet TAKE 1 TABLET BY MOUTH DAILY active Not Available Not Available Not Available naltrexone 50 mg tablet TAKE 1 TABLET BY MOUTH EVERY DAY FOR 14 DAYS active Not Available Not Available No t Available prednisone 20 mg tablet TAKE 2 TABS (40 MG) ORALLY DAILY active Not Available Not Available No t Available alendronate 70 mg tablet TAKE 1 TABLET BY MOUTH EVERY WEEK active Not Available Not Available No t Available gabapentin 400 mg capsule TAKE 1 CAPSULE BY MOUTH EVERY DAY AT BEDTIME FOR 90 DAYS TOO SOON 05/30/24 active Not Available Not Available No t [...] Not Available Not Available No t Available bupropion HCl SR 100 mg tablet,12 hr sustained-re lease 1 TABLET DAILY active Not Available Not Available No t Available butalbital-a cetaminophen -caffeine 50 mg-325 mg-40 mg tablet TAKE ONE TABLET BY MOUTH EVERY 6 HOURS active Not Available Not Available No t Available amoxicillin 500 mg tablet TAKE 1 TABLET BY MOUTH 3 TIMES A DAY UNTIL FINISHED active Not Available Not Available No t Available lamotrigine 25 mg tablet TAKE 1 TAB EVERY OTHER DAY FOR 1 WEEK THEN 1 TAB DAILY FOR 1 WEEK THEN 2 TABS DAILY active Not Available Not Available No t Available acetaminophe n ER 650 mg tablet,exten ded release TAKE 1 TABLET EVERY 6 HOURS NEEDED FOR PAIN active Not Available Not Available No t Available oxycodone-ac etaminophen 5 mg-325 mg tablet TAKE 1 TABLET BY MOUTH EVERY 6 HOURS NEEDED FOR SEVERE PAIN. active Not Available Not Available No t [...] sulfate HFA 90 mcg/actuatio n aerosol inhaler INHALE 2 PUFFS EVERY 6 HOURS NEEDED FOR WHEEZING active Not Available Not Available [...] propionate 50 mcg/actuatio n nasal spray,suspen fran SPRAY 1 SPRAY INTRANASALL Y DAILY DIRECTED active Not Available Not Available No t Available doxycycline hyclate 100 mg tablet TAKE 1 TABLET BY MOUTH TWICE DAILY active Not Available Not Available No t Available loratadine 10 mg tablet TAKE 1 TABLET BY MOUTH DAILY NEEDED FOR ALLERGY SYMPTOMS active Not Available Not Available No t Available naproxen 500 mg tablet TAKE 1 TABLET BY MOUTH EVERY 12 HOURS WITH FOOD OR MILK NEEDED FOR 30 DAYS active Not Available Not Available No t Available amoxicillin 875 mg-potassium clavulanate 125 mg tablet TAKE 1 TABLET BY MOUTH [...] TAKE 2 TABLETS BY MOUTH AT BEDTIME FOR 90 DAYS active Not Available Not Available No t Available acamprosate 333 mg tablet,delay ed release TAKE 2 TABLETS BY MOUTH 3 TIMES A DAY FOR 28 DAYS active Not Available Not Available Not Available ondansetron HCl (PF) 4 mg/2 mL injection solution 4mg slow IV 2022 active Not Available Not Available Not Avai lable Solu-Medrol (PF) 125 mg/2 mL solution for injection 125 mg iv 2022 active Not Available Not Available Not Avai lable butalbital-a cetaminophen -caffeine 50 mg-300 mg-40 mg capsule TAKE 1 CAPSULE BY MOUTH EVERY 6 HOURS NEEDED active Not Available Not Available No t Available Vitamin D3 50 mcg (2,000 unit) capsule TAKE 1 CAPSULE BY MOUTH DAILY active Not Available Not Available Not Available Incruse Ellipta 62.5 mcg/actuatio n powder [...] mcg/dose powder for inhalation INHALE 1 PUFF TWICE A DAY active Not Available Not Available No t Available Daily-Ruby (with folic acid) 400 mcg tablet TAKE 1 TABLET BY MOUTH EVERY DAY active Not Available Not Available No t Available Zepbound 2.5 mg/0.5 mL subcutaneous pen injector INJECT 2.5 MG 1 PEN) SUBCUTANEOU SLY ONCE EVERY WEEK active Not Available Not Available N ot Available Vitals Date Recorded Respiratory rate Oxygen saturation Oxygen saturation in Arterial blood by Pulse oximetry Inhaled oxygen flow rate Body temperature Heart rate Systolic blood pressure Diastolic blood pressure Provider Name and Address Organization Details Last Updated DateTime 3 18 /min 92 % 92 % 2 L/min 98.6 [degF] 103 /min 130 mm[Hg] 82 mm[Hg] Not Available [facility] 3 10:56:19 Date Recorded Body weight Body height Respiratory rate Body temperature Heart rate Oxygen saturation Oxygen saturation in Arterial blood by Pulse oximetry Systolic blood pressure Diastolic blood pressure Provider Name and Address Organization Details Last Updated DateTime 4 69407.4 4 g 162.56 cm 16 /min 97.3 [degF] 82 /min 100 % 100 % 115 mm[Hg] 78 mm[Hg] Not Available [employer] 4 16:55:55 Date Recorded Oxygen saturation Oxygen saturation in Arterial blood by Pulse oximetry Heart rate Body weight Body temperature Respiratory rate Body height Systolic blood pressure Diastolic blood pressure Provider Name and Address Organization Details Last Updated DateTime 5 97 % 97 % 69 /min 56045.4 4 g 98 [degF] 20 /min 162.56 cm 122 mm[Hg] 83 mm[Hg] Not Available [employer] 5 17:16:04 Date Recorded Respiratory rate Oxygen saturation Oxygen saturation in Arterial blood by Pulse oximetry Heart rate Body temperature Body weight Systolic blood pressure Diastolic blood pressure Provider Name and Address Organization Details Last Updated DateTime 3 18 /min 91 % 91 % 110 /min 98.2 [degF] 76210.4 8 g 130 mm[Hg] 78 mm[Hg] Not Available [employer] [facility] 3 17:58:42 Date Recorded Respiratory rate Heart rate Oxygen saturation Oxygen saturation in Arterial blood by Pulse oximetry Body temperature Systolic blood pressure Diastolic blood pressure Provider Name and Address Organization Details Last Updated DateTime 3 18 /min 94 /min 98 % 98 % 98.2 [degF] 136 mm[Hg] 79 mm[Hg] Not Available [employer] [facility] 3 15:27:16 Social History None recorded. Functional [...] [id number] Shivam Claudio MD Main - [facility] [address] [place] [phone] 02/15/2022 13:25:36 02/19/2022 09:21:06 Cough 78555416 R05.9 s/p COVID. Mild wheezing. O2 sats stable. Will give an additional neb and prescribe neb treatments . If symptoms persist, recommend visit for possible treatment of COPD exacerbati on 6805 Shivam Claudio MD Main - [facility] [address] [place] [address] 0 02/16/2022 14:19:43 02/19/2022 10:07:19 Acute exacerbation of chronic obstructive pulmonary disease [id number] J44.1 Will treat empiricall y for COPD exacerbati on and add on an expectoran t 6986 Marta Self MD Main - [facility] [address] [place], [place] [phone] 02/22/2022 15:25:37 02/27/2022 11:10:24 Acute exacerbation of chronic obstructive pulmonary disease [id number] J44.1 with possible pneumonia- patient would benefit [...] q 6 prn/Keep appt with pulmonolog ist walt 02/27/22- advised to touch base w. pcp tomorrow- knows our number can call for repeat [facility] visit if she feels she needs it. Red flags reviewed as above 7574 Bj Mcqueen MD Main - [facility] [address] [place] [phone] 03/19/2022 17:58:31 03/21/2022 09:18:52 Pain of nose 891706541 J34.89 [id number] Rinku Houser MD Main - [facility] [address] [place] [phone] 06/21/2022 15:27:15 06/22/2022 14:48:09 Fracture of foot 36308380 S92.902A [id number] Elda Jose MD Main - [facility] [address] [place] [phone] 11/12/2022 10:56:13 11/12/2022 22:59:10 Upper respiratory infection 71416050 J06.9 URI sx starting on Saturday. SpO2 [...] Reviewed warning s/sx with pt. Pt and burial needs salesperson agree with plan. [id number] Deacon Easley MD Main - [facility] [address] [place] [phone] 08/21/2023 16:55:50 08/21/2023 19:47:16 Acute exacerbation of chronic obstructive pulmonary disease [id number] J44.1 This 57-year-ol d female with COPD has has a cry cough and wheezing for three days with a low grade fever. I ordered a Prednisone taper and recommende d Mucinex or Robitussin . She will continue using her usual inhalers and follow-up with her PCP. The patient agreed with this plan. [id number] Champ Rosario MD [facility] [address] [place] [phone] 06/12/2024 17:15:57 06/12/2024 19:59:23 Acute exacerbation of chronic obstructive pulmonary disease [id number] J44.1 Health Concerns Section Related Observation LastModified by Organization Detai ls LastModified Time None Recorded Concern Status LastModified by Organization Details LastModified Time None Recorded Advance Directives Directive None Recorded Payers Insurance Date Sequence Insurance Name Policy Number Policy Prather Covered Member ID Prather Member ID Guarantor Name 11/12/2022 1 [facility] - DOS PRIOR TO 2022 - DUAL ELIGIBLE (MEDICARE REPLACEMENT/ADV ANTAGE - HMO) Annie Pak [id number] Annie Pak 06/12/2024 1 [facility] - DOS ON OR AFTER 2022 - DUAL ELIGIBLE - [employer] OPTIONS AND ONE CARE (MEDICARE REPLACEMENT/ADV ANTAGE - HMO) Annie Pak [id number] Annie Pak Notes Date Note Type Note Provider Name and Address Organization Details Recorded Time 03/19/2022 text/html [facility] Nursing Assessment: Chief Complaints: URI PMH: COPD/Asthma, Hypertension Comments: Member calling for [facility] visit for eval nasal congestion and burning in nostrils x 3-4 days attempt Williamson gel with some relief deny fevers cont with chills recent treatment for pneumonia Bj Mcqueen MD [address] [place] [address],[address], [place], [phone], [employer] 03/19/2022 18:12:52 06/21/2022 text/html This was a supervised home visit with burial needs salesperson Suzanne Morelos. CRC Nursing Assessment: Reason For [...] .................. .................. .................. .................. .................. .................. ............... Stereoptician Note From Suzanne Morelos: Dispatched Urgent to [...] States she has taken APAP prior to [facility] arrival. Patient rested and iced extremity prior to our arrival. Patient noted to have swelling and bruising to the lateral aspect of the left dorsal foot with the contusion noted to be roughly [id number]. Pedal pulses present. Pt reports secondary complaint of left knee pain due to the position she landed in. Pt denies head, neck, or back pain. Pt denies LOC. Vitals as noted. Pt denies any additional complaints at this time. No other gross or obvious signs of trauma noted. [facility] consulted and recommends Pt be evaluated at an Urgent Care for X-Rays R/O Fx. Pt states the local Urgent Care closes soon and she would need to go to local ED. Transport via local EMS offered to Pt. Pt states she will drive herself to local ED AMA. Completed by Ta Aguilera [place] [id number] .................. .................. .................. .................. .................. .................. .................. ............... Disposition: Fulfilled Rinku Houser MD [address] [place] [address],[address], [place], [phone], [facility] 06/21/2022 16:50:32 11/12/2022 text/html CRC Nursing Assessment: [...] .................. .................. .................. .................. .................. .................. ............... Stereoptician Note From Artis Kate: Dispatched to the [...] .................. ............... Disposition: Fulfilled Elda Jose MD [address] [place] [address],[address], [place], [phone], [facility] 11/12/2022 16:08:23 08/21/2023 text/html CRC Nurse Triage Notes (Tara Cramer): Reason For Request: Pt reporting severe cough>chills>nause a>temperature that has been on/off>headache>st ates yesterdays covid test was negative>some sob due to cough, nose is stuffy Chief Complaints: Cough, Fever/Chills PMH: COPD/Asthma, Hypertension Comments: Tire Assembler verified the member's name//address and phone number. [...] s/s and seek emergency treatment if needed Stereoptician POC Test Results from Leon Ramirez - [facility] Rapid COVID antigen (17:31:46) COVID: - Rapid influenza antigen (17:31:48) Flu: - .................. .................. .................. .................. .................. .................. .................. ............... Stereoptician Note From Leon Ramirez: [facility] visit for [...] recently discontinued from incruse inhaler. Consulted with [facility] Dr. Easley who ordered 60 mg of oral prednisone given on scene. 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 Reviewed red flags for ED. Patient education provided. .................. .................. .................. .................. .................. .................. .................. ............... Disposition: Fulfilled Deacon Easley MD [address] [facility],[address], [place], [phone], [facility] 08/21/2023 17:32:43 06/12/2024 text/html CRC Nurse Triage [...] her recuse inhaler. 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 She has been taking OTC cough, with changeI provided information on the mobile health provider response time and advised the patient and/or caregiver to monitor reported signs and symptoms. I discussed the warning signs of when to seek emergency care. Stereoptician Organization Information for Bessy Espinal Legal Name: [facility] TransportationAddr ess: [address] [place], [place] [address], Medical Director: [facility] [id number] Stereoptician POC Test Results from Bessy Espinal - ESTELA Rapid COVID antigen (13:55:03)COVID: -Attachments uploaded as part of this test result can be found under Documents section. Rapid influenza antigen (13:55:03)Flu: -Attachments uploaded as part of this test result can be found under Documents section. .................. .................. .................. .................. .................. .................. .................. ............... Stereoptician Note From Bessy Espinal: [facility] 3 dispatched to above address for 58yof [...] at home Covid/flu test, negative for both. [facility] called for orders for azithromycin and prednisone. Orders confirmed, 500mg PO azithromycin, 40mg PO prednisone. Pt able to take all PO medications without incident. Pt advised that should her symptoms continue to worsen and she begins to exhibit ? r ed flag? symptoms, she should seek immediate hospital care. [facility] 3 clear without incident. .................. .................. .................. .................. .................. .................. .................. ............... [facility] Consulted: Champ Rosario .................. .................. .................. .................. .................. .................. .................. ............... Disposition: Fulfilled Champ Rosario MD [address] [facility],[address], [place], [address], [facility] 06/12/2024 18:18:57 OBGyn Episode No OBEpisode recorded.
== END 2024-06-24 12:30 | disposition home or self-care (01) ==
PROVIDERS: PCP Internal Medicine; Visit Provider Physician Assistant
DX: L02.91 Cutaneous abscess, unspecified (principal)

== ENCOUNTER → 2024-06-24 11:38 | Outpatient (BNVA) | payer OTHER, SELFPAY | PROVIDERS: PCP Internal Medicine; Visit Provider Physician Assistant | DX: L02.91 Cutaneous abscess, unspecified (principal) | CPT/HCPCS: 99212 ==

== ENCOUNTER 2024-08-24 10:53 | Outpatient (AMB) | payer OTHER, SELFPAY ==
--- NOTE | 2024-08-24 11:17 | MHC.PC.OV ---
Vital Signs 08/24/24 11:26 Height 5 ft 4 in Weight 178 lb BMI 30.6 BP 104/74 Blood Pressure Location Rt brachial Position Sitting Respiration 18 Pulse 94 Pulse Source Pulse Oximeter Temp 98.1 F Temp Source Oral Pulse Oximetry (%) 99 Oxygen Delivery Method Room Air Intake Visit Reasons: Annual PE Intake Note: Pt is here today for PE. Allergies sumatriptan (From IMITREX) Allergy (Intermediate, Verified 08/24/24 11:29) RASH Medication List - Last Reconciled 08/24/24 by Sandi Andrade MD albuterol sulfate 90 mcg/actuation 2 puffs inhalation Q6H PRN albuterol sulfate 0.63 mg (3 mL) inhalation QID PRN alendronate (Fosamax) 70 mg PO QWEEK atorvastatin 10 mg PO QPM cholecalciferol (vitamin D3) 50 mcg PO DAILY clonazepam 1 mg PO BID disposable gloves As directed-size medium fluconazole 150 mg PO Q3D fluticasone propionate 50 mcg/actuation 1 spray intranasal DAILY gabapentin 400 mg PO BEDTIME incontinence pad, liner, disp As directed (4 pks per month) [Kneeling Scooter As directed] montelukast 10 mg PO DAILY naltrexone microspheres ER (Vivitrol) mg IM pantoprazole 40 mg PO BID Zepbound (tirzepatide (weight loss)) 5 mg (0.5 mL) subcut QWEEK NS Tobacco use date assessed: 08/24/24 Dental Screening Dental Screen Date: 05/28/24 HPI Annual PE HPI Details Pt presents for physical. She lost 15 lb on Zepbound for 3 months. Patient has been decreasing caloric intake increasing physical activity PFSH Medical History Weakness generalized Nocturnal hypoxemia Restrictive lung disease Musculoskeletal pain Anxiety and depression Ex-smoker Allergic rhinitis Cataract Vitamin B12 deficiency Vitamin D insufficiency GERD (gastroesophageal reflux disease) ETOH abuse Migraine SUNSHINE on CPAP COPD (chronic obstructive pulmonary disease) Surgical History History of esophagogastroduodenoscopy (EGD) H/O colonoscopy S/P PRINCESS (total abdominal hysterectomy) History of total hysterectomy Family History Father Alcoholic Mother Diabetes mellitus HTN (hypertension) Mental health disorder Brother Substance use disorder Mental health disorder Brother Substance use disorder Daughter Mental health disorder Brother Substance use disorder Social History Household Members: Spouse Housing: House Do you presently have visiting nurse or other home services: No Alcohol intake: former Comment: all counts correct Patient Tobacco Use Status: Former Tobacco user Tobacco use type: Cigarette e-Cigarette/Vaping Use: Never Used Second Hand Smoke Exposure: No Substance Use Type: Crack/Cocaine Advance Directives Date on File: 02/28/22 service: No Current occupational status: disabled 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 Cognitive needs: No Hearing needs: No Vision needs: Yes Questionnaire Thrive Questionnaire Date Thrive assessed: 05/27/24 I am a: Patient What is your living situation today?: I have a steady place to live Within the past 12 months, did the food you bought not last and you didn't have the money to get more?: Sometimes True Within the past 12 months, did you worry whether your food would run out before you got money to buy more?: Sometimes True Do you have trouble paying for medicines?: No Do you have trouble getting transportation to medical appointments?: No Do you have trouble paying your heating and electricity bill?: No Do you have trouble taking care of your child, family member or friend?: No Do you have trouble with day-to-day activities such as bathing, preparing meals, shopping, managing finances, etc.?: Yes Are you currently unemployed and looking for a job?: Yes Are you interested in more education?: No Please select the resources that you would like help with: None Currently or been in a relationship where the following occur: No concerns reported THRIVE Score: 2 AUDIT C Alcohol Use Questionnaire (AUDIT-C) 1. How often do you have a drink containing alcohol?: Never 3. How often do you have six or more drinks on one occasion?: Never Total Score: 0 RICARDO-7 AMB Questionnaire RICARDO-7 Date RICARDO - 7 assessed: 05/28/24 Source: Developed by Drs. Angelo Oseguera, Marzena Parker, Tony Vick and colleagues, with an educational gee from [employer]. Review of Systems Const All systems reviewed & are unremarkable except as noted in HPI and below Eyes Reports no additional complaints ENT Reports no additional complaints Card Reports no additional complaints GI Reports no additional complaints Reports no additional complaints Physical exam (Primary Care) Vital Signs: Last Vital Signs Temp 98.1 F 08/24/24 11:26 Pulse 94 08/24/24 11:26 Resp 18 08/24/24 11:26 BP 104/74 08/24/24 11:26 Pulse Ox 99 08/24/24 11:26 Oxygen Delivery Method Room Air 08/24/24 11:26 BMI result Body Mass Index 30.6 Tobacco/Smoking Status: Tobacco use Status Tobacco use date assessed 08/24/24 08/24/24 11:36 Patient Tobacco Use Status Former Tobacco user 08/24/24 11:19 Tobacco use type Cigarette 08/24/24 11:19 e-Cigarette/Vaping Use Never Used 08/24/24 11:19 Thrive Assessment: Date of Thrive Assessment Date Thrive assessed 05/27/24 08/24/24 11:19 Currently or been in a relationship where the following occur: No concerns reported Const General: no acute distress HENMT Head: Yes normal to inspection Ears: TM's normal bilaterally Mouth: Normal oral and palatal mucosa present Throat: Yes posterior oropharynx normal Eyes General: appearance normal, both eyes and all related structures Neck Neck: Yes no lymphadenopathy and Yes supple Resp Effort & Inspection: normal respiratory effort Auscultation: clear to auscultation bilaterally Cardio Rhythm: regular rhythm Heart sounds: S1 normal heart sound present and S2 normal heart sound present GI Inspection: Yes normal to inspection Palpation (GI): Soft to palpation Percussion: Yes normal to percussion Auscultation: normal bowel sounds Coding Level of Care Code Est Pt Prev Care 40-64y(43566) Diagnoses Vitamin D insufficiency E55.9 Vitamin B12 deficiency E53.8 Hyperlipidemia E78.5 Anxiety and depression F41.9; F32.A Overweight E66.3 Annual physical exam Z00.00 COPD (chronic obstructive pulmonary disease) J44.9 Assessment & Plan Assessment & Plan (1) Vitamin D insufficiency: Code(s): E55.9 - Vitamin D deficiency, unspecified Category: Medical Plan: Continue vitamin-D supplement check the level (2) Vitamin B12 deficiency: Code(s): E53.8 - Deficiency of other specified B group vitamins Category: Medical Plan: Continue vitamin B12 (3) Hyperlipidemia: Code(s): E78.5 - Hyperlipidemia, unspecified Category: Medical Plan: Continue statin (4) Anxiety and depression: Comment: She is getting TMS treatment. Anxiety and depression are much improved . Code(s): F41.9 - Anxiety disorder, unspecified; F32.A - Depression, unspecified Category: Medical Plan: Follow-up with psychiatry (5) Overweight: Code(s): E66.3 - Overweight Category: Medical Plan: Increase Zepbound to 5 mg weekly, continue decreasing caloric intake increasing physical activity weight loss. 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 SPIROMETRY IN 2021 SHOWED ONLY MODERATE DEGREE OF RESTRICTIVE PULMONARY DISORDER. BUT SHE HAS BEEN USING ADVAIR WELL INCRUSE ELLIPTA REGULARLY. SPIROMETRY ON HER LAST VISIT SHOWED MILD RESTRICTIVE PULMONARY DISEASE AND NO EVIDENCE OF OBSTRUCTIVE AIRWAY DISORDER. Code(s): J44.9 - Chronic obstructive pulmonary disease, unspecified Category: Medical Plan: Continue Trelegy follow-up with pulmonology Orders: Orders Comprehensive [place]. Panel Fast 3 Months E53.8 - Deficiency of other specified B group vitamins, E55.9 - Vitamin D deficiency, unspecified, E78.5 - Hyperlipidemia, unspecified, R73.9 - Hyperglycemia, unspecified Lipid Panel 3 Months E53.8 - Deficiency of other specified B group vitamins, E55.9 - Vitamin D deficiency, unspecified, E78.5 - Hyperlipidemia, unspecified, R73.9 - Hyperglycemia, unspecified Complete Blood Count Auto Diff 3 Months E53.8 - Deficiency of other specified B group vitamins, E55.9 - Vitamin D deficiency, unspecified, E78.5 - Hyperlipidemia, unspecified, R73.9 - Hyperglycemia, unspecified TSH reflex Free T4 3 Months E53.8 - Deficiency of other specified B group vitamins, E55.9 - Vitamin D deficiency, unspecified, E78.5 - Hyperlipidemia, unspecified, R73.9 - Hyperglycemia, unspecified Vitamin D 25-OH Total 3 Months E53.8 - Deficiency of other specified B group vitamins, E55.9 - Vitamin D deficiency, unspecified, E78.5 - Hyperlipidemia, unspecified, R73.9 - Hyperglycemia, unspecified Medications: New Zepbound (tirzepatide (weight loss)) 5 mg (0.5 mL) subcut QWEEK 6 mL 3RF NS Discontinued Zepbound (tirzepatide (weight loss)) Discontinued Reason: Doctor's Order 2.5 mg (0.5 mL) subcut QWEEK 2 mL 1RF NS fluticasone propion-salmeterol 250-50 mcg/dose (Wix[facility] Inhub) Discontinued Reason: Doctor's Order 1 inh PO BID 60 ea 0RF
[2024-08-24 11:26] VITALS: BP 104/74; PULSE 94; RESP 18; TEMP 36.7; O2SAT 99; BMI 30.6
--- OUTSIDE RECORDS SUMMARY | 2024-08-24 11:52 | XMS_ITS | Clinical Summary ---
Author Organization [employer] Address [address] [place] [address] Care Team Providers Care Photogrammetric Compilation Specialist Name Role Phone Sandi Andrade MD Primary Care Provider [phone] Allergies Active Allergy Reactions Criticality Noted Date [...] Dysphagia GERD (gastroesophageal reflux disease) Aspiration pneumonia ([facility] V24, [facility] V28) Chronic constipation Alcohol use disorder COPD (chronic obstructive pulmonary disease) ([facility] V24, [facility] V28) Bipolar 1 disorder ([facility] V24, [facility] V28) Obesity SUNSHINE (obstructive sleep apnea) HTN [...] 07/19/2021, Additional history exists Influenza Vaccine (#1) 2024 , 11/02/2021, 03/13/2021, Additional history exists DTaP,Tdap,and Td [...] patient's age to complete this topic Insurance [employer] Member Subscriber Plan / Payer (Ef fective 2016-Present) Name:Annie Pak Relation to Subscriber:Self Name:Annie Pak Payer ID:[id number] Group ID:[id number] Type:Not on file Address: [address] [facility] [place] [address] Care Teams Photogrammetric Compilation Specialist Relationship Specialty Start Date End Date Sandi Andrade MD [address] [facility] [place] [phone] PCP - General Internal Medicine 01/01/24
--- OUTSIDE RECORDS SUMMARY | 2024-08-24 11:52 | XMS_ITS | Data Portability ---
Author Organization [employer] [facility], [facility] [employer] [facility] Address [address] [place] [phone] Care Team Providers Care Sql Server Consultant Name Role Phone HIM CCA OTHER TOM [...] assessment and plan as documented by the passenger solicitor. I provided real time medical direction for this encounter and was immediately available to provide additional phone based assistance as needed. History as noted by passenger solicitor. Pt reports that earlier today while walking [...] also need to follow up with a grades 7 and 8 teacher/ortho pedic floral specialist after the diagnosis is made and she can get a referral from the ED or urgent care. [email or web address] Not available 06/21/2022 16:50:16 06/12/2024 06/12/2024 I have reviewed and agree with the assessment and plan as documented by the passenger solicitor. I provided real-time medical direction for this encounter and was immediately available to provide additional phone-based assistance as needed. History as noted in EMR and by passenger solicitor. I would add / emphasize: Patient with [...] Ag, QL IA, respiratory specimen 2024 025 [facility], [address] [place] [address], [place], [address] 18:32:08 rapid flu (A+B) 2024 025 [facility], [address] [place] [address], [address] 18:32:29 SARS CoV 2 RNA (COVID-19), QL, stereotype molder-PCR, respiratory specimen 2023 024 [email or web address] [facility] (Centralized Electronic Ordering - All Locations), Patient Can Go To The Location Of Their Choice, [id number] 4 11:53:13 rapid flu (A+B) 2023 024 [facility], [address] [place] [address], [phone] 4 18:15:50 Referral None recorded. Procedures None recorded. Surgeries None recorded. Imaging None recorded. Medication Orders prednisone 10 mg tablet 2024 025 [facility][id number], [address] [place] [address], [address], 5 17:19:28 azithromyci n 250 mg tablet 2024 025 [id number], [address] [place], [address], 5 17:19:28 prednisone 10 mg tablet 2023 024 [id number], [address] [place], [address], 4 17:07:19 Patient TargetsNo targets recorded. Patient InstructionsNo instructions recorded. Reason for Referral None Reported. Results Created Date Observation Date Name Description Value Unit Range Abnormal Flag Note LastModifiedBy Organization Detail LastModifiedTime 02/22/1902/22/2022 BMP, serum or plasm a BUN 7 Not Available [facility] [address], [phone] 02/22/2022 15:35:55 02/22/1902/22/2022 BMP, serum or plasm a Ca I Ca 1.14 Not Available [facility] - [address], [address] 02/22/2022 15:35:55 02/22/19 23 02/22/2022 BMP, serum or plasm a CI- 100 Not Available [facility] [address], [address] 02/22/2022 15:35:55 02/22/19 23 02/22/2022 BMP, serum or plasm a CRE 0.7 Not Available [facility] [address], [address] [place] [address] 02/22/2022 15:35:55 02/22/19 23 02/22/2022 BMP, serum or plasm a GLU 127 Not Available [facility] [address], [address] [place] [address] 02/22/2022 15:35:55 02/22/19 23 02/22/2022 BMP, serum or plasm a K+ 3.7 Not Available [facility] [address], [address] [place] [address] 02/22/2022 15:35:55 02/22/19 23 02/22/2022 BMP, serum or plasm a Na+ 139 Not Available [facility] [address], [address] [place] [address] 02/22/2022 15:35:55 02/22/19 23 02/22/2022 BMP, serum or plasm a tCO2 28 Not Available [facility] [address], [address] [place] [address] 02/22/2022 15:35:55 02/22/19 23 02/22/2022 rapid flu (A+B) Flu negati ve Not Available [facility] ed [address] [place] [address], [address] [place] [address] 02/22/2022 15:35:38 02/22/19 23 02/22/2022 rapid SARS CoV 2 Ag, QL IA, respi rator y speci men rapid SARS CoV 2 Ag, QL IA, respiratory specimen negati ve Not Available [facility] - [facility] ed [address] [place] [address], [address] [place] [address] 02/22/2022 15:35:37 Result Notes None recorded. Medical Equipment None Reported. Allergies Allergen ID Allergen Name Allergen Category Reaction Reaction Severity Criticality Documentation Date Start Date Code Code System Note Provider Name and Address Organization Details Recorded Time 06030 sumatript an medicatio n Not available Not available Not available 06/12/2024 05632 RxNorm Not Available [facility] - production 08:53:30 1751 Lamictal medicatio n Not available Not available Not available 02/22/2022 96641 2 RxNorm Not Available [facility] - production 5 08:53:30 1752 Imitrex medicatio n Not available Not available Not available 02/22/2022 39341 3 RxNorm Marta Self MD [address] [facility],[address], [place], [address] , [facility] - [employer] See 3 15:26:04 Medications Name Sig Start Date [...] Heart rate Body temperature Body weight Systolic And Diastolic Provider Name and Address Organization Details Last Updated DateTime 3 18 /min 91 % 91 % 110 /min 98.2 [degF] 71504.4 8 g 130/78 mm[Hg] Not Available [employer] 3 17:58:42 Date Recorded Oxygen saturation Oxygen saturation in Arterial blood by Pulse oximetry Heart rate Body weight Body temperature Respiratory rate Body height Systolic And Diastolic Provider Name and Address Organization Details Last Updated DateTime 5 97 % 97 % 69 /min 45536.4 4 g 98 [degF] 20 /min 162.56 cm 122/83 mm[Hg] Not Available [employer] 5 17:16:04 Date Recorded Respiratory rate Heart rate Oxygen saturation Oxygen saturation in Arterial blood by Pulse oximetry Body temperature Systolic And Diastolic Provider Name and Address Organization Details Last Updated DateTime 3 18 /min 94 /min 98 % 98 % 98.2 [degF] 136/79 mm[Hg] Not Available [employer] 3 15:27:16 Date Recorded Body weight Body height Respiratory rate Body temperature Heart rate Oxygen saturation Oxygen saturation in Arterial blood by Pulse oximetry Systolic And Diastolic Provider Name and Address Organization Details Last Updated DateTime 4 26310.4 4 g 162.56 cm 16 /min 97.3 [degF] 82 /min 100 % 100 % 115/78 mm[Hg] Not Available [employer] 4 16:55:55 Date Recorded Respiratory rate Oxygen saturation Oxygen saturation in Arterial blood by Pulse oximetry Inhaled oxygen flow rate Body temperature Heart rate Systolic And Diastolic Provider Name and Address Organization Details Last Updated DateTime 3 18 /min 92 % 92 % 2 L/min 98.6 [degF] 103 /min 130/82 mm[Hg] Not Available [employer] 3 10:56:19 Social History None recorded. Functional Status None [...] [id number] Shivam Claudio MD Main - [facility] [address] [place] [phone] 02/15/2022 13:25:36 02/19/2022 09:21:06 Cough 60609390 R05.9 s/p COVID. Mild wheezing. O2 sats stable. Will give an additional neb and prescribe neb treatments . If symptoms persist, recommend visit for possible treatment of COPD exacerbati on [id number] Shivam Claudio MD Main - [facility] [address] [place] [phone] 02/16/2022 14:19:43 02/19/2022 10:07:19 Acute exacerbation of chronic obstructive pulmonary disease 528202567 J44.1 Will treat empiricall y for COPD exacerbati on and add on an expectoran t [id number] Marta Self MD Main - [facility] [address] [place] [phone] 02/22/2022 15:25:37 02/27/2022 11:10:24 Acute exacerbation of chronic obstructive pulmonary disease 484282079 J44.1 with possible pneumonia- patient would benefit [...] q 6 prn/Keep appt with pulmonolog ist Rosalio 02/27/22- advised to touch base w. pcp tomorrow- knows our number can call for repeat [facility] visit if she feels she needs it. Red flags reviewed as above [id number] Bj Mcqueen MD Main - [facility] [address] [place] [phone] 03/19/2022 17:58:31 03/21/2022 09:18:52 Pain of nose 405174510 J34.89 [id number] Rinku Houser MD Main - [facility] [address] [place] [phone] 06/21/2022 15:27:15 06/22/2022 14:48:09 Fracture of foot 70611453 S92.902A [id number] Elda Jose MD Main - [facility] [address] [place] [phone] 11/12/2022 10:56:13 11/12/2022 22:59:10 Upper respiratory infection 76134645 J06.9 URI sx starting on Saturday. SpO2 [...] Reviewed warning s/sx with pt. Pt and passenger solicitor agree with plan. [id number] Deacon Easley MD Main - [facility] [address] [place] [phone] 08/21/2023 16:55:50 08/21/2023 19:47:16 Acute exacerbation of chronic obstructive pulmonary disease 173992471 J44.1 This 57-year-ol d female with COPD has has a cry cough and wheezing for three days with a low grade fever. I ordered a Prednisone taper and recommende d Mucinex or Robitussin . She will continue using her usual inhalers and follow-up with her PCP. The patient agreed with this plan. [id number] Champ Rosario MD Main - [facility] [address] [place] [phone] 06/12/2024 17:15:57 06/12/2024 19:59:23 Acute exacerbation of chronic obstructive pulmonary disease 595584935 J44.1 Health Concerns Section Related Observation LastModified by Organization Detai ls LastModified Time None Recorded Concern Status LastModified by Organization Details LastModified Time None Recorded Advance Directives Directive None Recorded Payers Insurance Date Sequence Insurance Name Policy Number Policy Prather Covered Member ID Prather Member ID Guarantor Name 11/12/2022 1 [facility] - DOS PRIOR TO 2022 - DUAL ELIGIBLE (MEDICARE REPLACEMENT/ADV ANTAGE - HMO) Annie Pak [id number] Annie Pak 06/12/2024 1 [facility] - DOS ON OR AFTER 2022 - DUAL ELIGIBLE - LONGTERM OPTIONS AND ONE CARE (MEDICARE REPLACEMENT/ADV ANTAGE - HMO) Annie Pak [id number] Annie Pak Notes Date Note Type Note Provider Name and Address Organization Details Recorded Time 03/19/2022 text/html [facility] Nursing Assessment: Chief Complaints: URI PMH: COPD/Asthma, Hypertension Comments: Member calling for [facility] visit for eval nasal congestion and burning in nostrils x 3-4 days attempt [place] gel with some relief deny fevers cont with chills recent treatment for pneumonia Bj Mcqueen MD [address] [place] [address],[address], [place], [phone], [employer] [facility] 03/19/2022 18:12:52 06/21/2022 text/html This was a supervised home visit with passenger solicitor Suzanne Morelos. CRC Nursing Assessment: Reason For [...] .................. .................. .................. .................. .................. .................. ............... Ophthalmic Technician Apprentice Note From Suzanne Morelos: Dispatched Urgent to [...] she has taken APAP prior to [facility] arrival. Patient rested and iced extremity prior to our arrival. Patient noted to have swelling and bruising to the lateral aspect of the left dorsal foot with the contusion noted to be roughly 2ooE5Cy. Pedal pulses present. Pt reports secondary complaint of left knee pain due to the position she landed in. Pt denies head, neck, or back pain. Pt denies LOC. Vitals as noted. Pt denies any additional complaints at this time. No other gross or obvious signs of trauma noted. [facility] consulted and recommends Pt be evaluated at an Urgent Care for X-Rays R/O Fx. Pt states the local Urgent Care closes soon and she would need to go to local ED. Transport via local EMS offered to Pt. Pt states she will drive herself to local ED AMA. Completed by Ta Aguilera MA [id number] .................. .................. .................. .................. .................. .................. .................. ............... Disposition: Fulfilled Rinku Houser MD [address] [facility],[address], [place], [address], [employer] 06/21/2022 16:50:32 11/12/2022 text/html CRC Nursing Assessment: [...] .................. .................. .................. .................. .................. .................. ............... Ophthalmic Technician Apprentice Note From Artis Kate: Dispatched to the [...] .................. .................. .................. .................. ............... Disposition: Fulfilled Edla Jose MD [address] [place] [address],[address], [place], [phone], [employer] 11/12/2022 16:08:23 08/21/2023 text/html CRC Nurse Triage Notes (Tara Cramer): Reason For Request: Pt reporting severe cough>chills>nause a>temperature that has been on/off>headache>st ates yesterdays covid test was negative>some sob due to cough, nose is stuffy Chief Complaints: Cough, Fever/Chills PMH: COPD/Asthma, Hypertension Comments: Cnc Manager verified the member's name//address and phone number. [...] s/s and seek emergency treatment if needed Ophthalmic Technician Apprentice POC Test Results from Leon Ramirez - [facility] Rapid COVID antigen (17:31:46) COVID: - Rapid influenza antigen (17:31:48) Flu: - .................. .................. .................. .................. .................. .................. .................. ............... Ophthalmic Technician Apprentice Note From Leon Ramirez: Smartcare visit for [...] recently discontinued from incruse inhaler. Consulted with [facility] Dr. Easley who ordered 60 mg of oral prednisone given on scene. Pt instructed to refill inhaler and chart picker some OTC mucinex as well. Reviewed red flags for ED. Patient education provided. .................. .................. .................. .................. .................. .................. .................. ............... Disposition: Fulfilled Deacon Easley MD [address] [place] [address],[address], [place], [phone], [employer] 08/21/2023 17:32:43 06/12/2024 text/html CRC Nurse Triage Notes (Tara Cramer): Reason For Request: cough/congestion Patient Reports: Cough, fever greater than 2 days ; History of asthma, increased use of inhaler; COPD; Sputum increase ; Cough; Shortness of breath with exertionDenies: Increased work of breathing/labored with or without fever Unable to speak in full sentences without distress Discoloration of skin -cyanosis Needs to sleep sitting up, can t catch breath Shortness of breath in [...] her recuse inhaler. 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 She has been taking OTC cough, with changeI provided information on the mobile health provider response time and advised the patient and/or caregiver to monitor reported signs and symptoms. I discussed the warning signs of when to seek emergency care. Ophthalmic Technician Apprentice Organization Information for [facility] Name: [facility] TransportationAddr ess: [address] [facility], [place] [address], Medical Director: Gregg VITALE No.: [id number] Ophthalmic Technician Apprentice POC Test Results from Bessy Espinal - [facility] Rapid COVID antigen (13:55:03)COVID: -Attachments uploaded as part of this test result can be found under Documents section. Rapid influenza antigen (13:55:03)Flu: -Attachments uploaded as part of this test result can be found under Documents section. .................. .................. .................. .................. .................. .................. .................. ............... Ophthalmic Technician Apprentice Note From Bessy Espinal: [facility] 3 dispatched to above address [...] at home Covid/flu test, negative for both. [facility] called for orders for azithromycin and prednisone. Orders confirmed, 500mg PO azithromycin, 40mg PO prednisone. Pt able to take all PO medications without incident. Pt advised that should her symptoms continue to worsen and she begins to exhibit red flag symptoms, she should seek immediate hospital care. [facility] 3 clear without incident. .................. .................. .................. .................. .................. .................. .................. ............... [facility] Consulted: Champ Rosario .................. .................. .................. .................. .................. .................. .................. ............... Disposition: Fulfilled Champ Rosario MD [address] [place] [address],[address], [place], [phone], [employer] 06/12/2024 18:18:57 OBGyn Episode No OBEpisode recorded.
== END 2024-08-24 12:33 | disposition home or self-care (01) ==
LOC: HO.HMCC 10:53
PROVIDERS: PCP Internal Medicine; Visit Provider Internal Medicine
DX: Z00.00 Encounter for general adult medical examination without abnormal findings (principal); J44.9 Chronic obstructive pulmonary disease, unspecified; E66.3 Overweight; Z68.30 Body mass index [BMI] 30.0-30.9, adult; E55.9 Vitamin D deficiency, unspecified; E53.8 Deficiency of other specified B group vitamins; E78.5 Hyperlipidemia, unspecified; F41.9 Anxiety disorder, unspecified; F32.A Depression, unspecified

== ENCOUNTER → 2024-08-24 10:53 | Outpatient (BNVA) | payer OTHER, SELFPAY | PROVIDERS: PCP Internal Medicine; Visit Provider Internal Medicine | DX: Z00.00 Encounter for general adult medical examination without abnormal findings (principal); E55.9 Vitamin D deficiency, unspecified; E53.8 Deficiency of other specified B group vitamins; E78.5 Hyperlipidemia, unspecified; F41.9 Anxiety disorder, unspecified; F32.A Depression, unspecified; E66.3 Overweight; Z68.30 Body mass index [BMI] 30.0-30.9, adult; J44.9 Chronic obstructive pulmonary disease, unspecified; Z79.899 Other long term (current) drug therapy | CPT/HCPCS: 99396 ==

== ENCOUNTER 2024-08-25 13:38 | Outpatient (AMB) | payer OTHER, SELFPAY ==
[2024-08-25 13:39] VITALS: BP 96/60; PULSE 78; O2SAT 95; BMI 30.8
--- NOTE | 2024-08-25 13:39 | A.OFFVIS_ITS ---
Vital Signs 08/25/24 13:39 Height 5 ft 4 in Weight 179 lb 10.828 oz BMI 30.8 BP 96/60 Blood Pressure Location Lt brachial Position Sitting Pulse 78 Pulse Source Pulse Oximeter Pulse Oximetry (%) 95 Oxygen Delivery Method Room Air Intake Visit Reasons: copd Log Cut Off Sawyer Required: No Accompanied by: Self / Same As Patient Allergies sumatriptan (From IMITREX) Allergy (Intermediate, Verified 08/25/24 13:56) RASH Medication List - Last Reconciled 08/25/24 by Tremaine Murphy MD albuterol sulfate 90 mcg/actuation 2 puffs inhalation Q6H PRN albuterol sulfate 0.63 mg (3 mL) inhalation QID PRN alendronate (Fosamax) 70 mg PO QWEEK atorvastatin 10 mg PO QPM cholecalciferol (vitamin D3) 50 mcg PO DAILY clonazepam 1 mg PO BID disposable gloves As directed-size medium fluticasone propionate 50 mcg/actuation 1 spray intranasal DAILY fyeksnchyyr-kxwirlbef-pxfdxoet 200-62.5-25 mcg (Trelegy Ellipta) 1 inh inhalation DAILY gabapentin 400 mg PO BEDTIME incontinence pad, liner, disp As directed (4 pks per month) [Kneeling Scooter As directed] montelukast 10 mg PO DAILY naltrexone microspheres ER (Vivitrol) mg IM pantoprazole 40 mg PO BID Zepbound (tirzepatide (weight loss)) 5 mg (0.5 mL) subcut QWEEK NS Do you need a note to return to daycare/school/sports/work: No HPI HPI copd: Details: ZORAN, 58 YEARS OLD FEMALE,, IS HERE AFTER 4 MONTHS FO.R FOLLOW-UP SHE ALSO SEES HER ALLERGY SPECIALISTS REGULARLY. AND HER INHALER HAS BEEN CHANGED TO TRELEGY ELLIPTA IN PLACE OF ADVAIR. SHE CLAIMS THAT WITH THIS NEW IN.HALER HER B REATHING IS BETTER AND SHE IS HAVING LESS BOUTS OF COUGH AND WHEEZING. DURING THE PAST MONTH SHE HAS BEEN TREATED FOR POSSIBLE ASPIRATION PNEUMONITIS, WITH ANTIBIOTICS, SHE CLAIMS THAT SHE WAS SICK SHE WAS NOT ABLE TO USE O2 AT NIGHT. NOW SHE IS STARTING TO HAVE FREQUENT HEADACHE IN THE MORNING. SHE IS TRYING TO WATCH CAREFULLY WHEN SHE, SWALLOWS TO AVOID THE MICRO ASPIRATIONS. DENIES SMOKING OR DRINKING ALCOHOL . [facility] Medical History Weakness generalized Nocturnal hypoxemia Restrictive lung disease Musculoskeletal pain Anxiety and depression Ex-smoker Allergic rhinitis Cataract Vitamin B12 deficiency Vitamin D insufficiency GERD (gastroesophageal reflux disease) ETOH abuse Migraine SUNSHINE on CPAP COPD (chronic obstructive pulmonary disease) Surgical History History of esophagogastroduodenoscopy (EGD) H/O colonoscopy S/P PRINCESS (total abdominal hysterectomy) History of total hysterectomy Family History Father Alcoholic Mother Diabetes mellitus HTN (hypertension) Mental health disorder Brother Substance use disorder Mental health disorder Brother Substance use disorder Daughter Mental health disorder Brother Substance use disorder Social History Household Members: Spouse Housing: House Do you presently have visiting nurse or other home services: No Alcohol intake: former Comment: all counts correct Patient Tobacco Use Status: Former Tobacco user Tobacco use type: Cigarette e-Cigarette/Vaping Use: Never Used Second Hand Smoke Exposure: No Substance Use Type: Crack/Cocaine Advance Directives Date on File: 02/28/22 service: No Current occupational status: disabled 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 Cognitive needs: No Hearing needs: No Vision needs: Yes Review of Systems Const All systems reviewed & are unremarkable except as noted in HPI and below Eyes Reports no additional complaints ENT Reports nasal congestion (mild off and on ) Card Reports chest pain, Denies irregular heart rhythm, Denies leg edema and Reports dyspnea on exertion Resp Reports cough (mild off and on .), Reports dyspnea on exertion and Denies wheezing GI Reports abdominal pain (non specific , being worked up ) Aller/Immun Denies wheezing Physical Exam Vital Signs: Last Vital Signs Pulse 78 08/25/24 13:39 BP 96/60 08/25/24 13:39 Pulse Ox 95 08/25/24 13:39 Oxygen Delivery Method Room Air 08/25/24 13:39 BMI result Body Mass Index 30.8 Const Other: Anxious and, slightly short of breath during conversation. General: no acute distress, alert and awake Orientation/consciousness: patient oriented x3 HEENT Head: Yes normal to inspection General nose exam: No nasal polyps present and No nasal discharge present Face and sinus: Yes sinuses nontender Mouth: oropharynx normal Throat: Yes posterior oropharynx normal Eyes General: appearance normal, both eyes and all related structures Neck Neck: Yes normal visual inspection, Yes no lymphadenopathy, Yes trachea midline and Yes no JVD Thyroid: Thyroid normal Chest Chest palpation & inspection: normal inspection of the chest, normal palpation of entire chest wall and no tenderness Resp Other: Percussion note is resonant, breath sounds are distant especially over the basilar areas. No Wheezes or crepitations are heard today. Cardio Palpation: normal PMI Rate: regular rate Rhythm: regular rhythm Heart sounds: no gallops and no murmurs Peripheral pulses: Peripheral pulses 2+ throughout GI Palpation (GI): Soft to palpation, nontender, No hepatosplenomegaly present and no masses Auscultation: normal bowel sounds Back/Spine/Pelvis Thoracic/Lumbar Spine: thoracic and lumbar spine normal to inspection and thoraco-lumbar ROM limited Skin General skin exam: no rashes or lesions noted Neuro General: patient oriented x3 and no focal motor deficits Cranial nerves: Yes CN's II-XII intact bilaterally Extrem General: Yes normal to inspection, Yes no clubbing, cyanosis or edema and Yes no calf tenderness Psych Speech and movement: Normal speech and movement present Affect: Anxious affect present Assessment & Plan Assessment & Plan (1) COPD (chronic obstructive pulmonary disease): Comment: PFT 09/2018, Mild obstructive Airways disorder . SPIROMETRY IN 2021 SHOWED ONLY MODERATE DEGREE OF RESTRICTIVE PULMONARY DISORDER. BUT SHE HAS BEEN USING ADVAIR WELL INCRUSE ELLIPTA REGULARLY. RECENTLY IT WAS CHANGED TO TRILOGY ELLIPTA 1 INHALA.TION DAILY SHE CLAIMS THAT SHE IS FEELING BETTER WITH THIS INHALER , STILL HAS MILD INTERMITTENT COUGH. Code(s): J44.9 - Chronic obstructive pulmonary disease, unspecified Category: Medical Plan: ADVISED TO CONTINUE USING TRELEGY ELLIPTA 1 INHALATION DAILY. ALBUTEROL HFA 2 PUFFS Q 4-6 HOURS P.R.N. OR ALTERED TENTATIVELY MAY USE ALBUTEROL SOLUTION 0.63 MG IN 3 ML Q 6 HOURS P.R.N. (2) Ex-smoker: Comment: She has not smoked for the last 2 YEAR and is determined not to go back to [facility]. Does not use nicotine patches at present She does vape 2 to 3 times a day, because of stress. Code(s): Z87.891 - Personal history of nicotine dependence Category: Social Hx Plan: COMMENDED FOR NOT ,SMOKING ADVISED TO CUT DOWN THE USE OF VAPING (3) Restrictive lung disease: Comment: MILD TO MODERATE RESTRICTIVE LUNG DISORDER IS RELATED TO GROSS OBESITY Code(s): J98.4 - Other disorders of lung Category: Medical Plan: ENCOURAGED TO DO DEEP BREATHING EXERCISES 3 TIMES A DAY (4) Nocturnal hypoxemia: Comment: SHE HAS CHRONIC HYPOXEMIA HER RECENT OVERNIGHT OXIMETRY RECORDING DID CONFIRM PRESENCE OF NOCTURNAL HYPOXEMIA Code(s): G47.34 - Idiopathic sleep related nonobstructive alveolar hypoventilation Category: Medical Plan: USE O2 2 L/MINUTE AT NIGHT (5) Allergic rhinitis: Comment: SHE HAS THE ONGOING MODERATE DEGREE OF ALLERGIC RHINITIS. IT GOT WORSE AFTER SHE STOPPED MONTELUKAST AND NOW OK AGAIN. Code(s): J30.9 - Allergic rhinitis, unspecified Category: Medical Plan: USE MONTELUKAST 10 MG DAILY FLONASE- 51 INHALATION IN EACH NOSTRIL B.I.D. Coding Level of Care Code Est Pt Level 3 (95397) Diagnoses COPD (chronic obstructive pulmonary disease) J44.9 Ex-smoker Z87.891 Restrictive lung disease J98.4 Nocturnal hypoxemia G47.34 Allergic rhinitis J30.9
--- OUTSIDE RECORDS SUMMARY | 2024-08-25 14:59 | XMS_ITS | Data Portability ---
Author Organization [facility], [facility] in[facility] Address [address] [place] [address] Care Team Providers Care Charge Attendant Name Role Phone HIM CCA OTHER TOM MARTINEZ Primary Care Provider [phone] Assessment Encounter Date Assessment Date Assessment LastModified [...] assessment and plan as documented by the seismic observer. I provided real time medical direction for this encounter and was immediately available to provide additional phone based assistance as needed. History as noted by seismic observer. Pt reports that earlier today while walking [...] also need to follow up with a rn care transition/ortho pedic disaster or damage control specialist after the diagnosis is made and she can get a referral from the ED or urgent care. [email or web address] Not available 06/21/2022 16:50:16 06/12/2024 06/12/2024 I have reviewed and agree with the assessment and plan as documented by the seismic observer. I provided real-time medical direction for this encounter and was immediately available to provide additional phone-based assistance as needed. History as noted in EMR and by seismic observer. 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 Procedures None recorded. Surgeries None recorded. Imaging None recorded. Medication Orders prednisone [address] [id number], [address] [place] [address], [address], 5 17:19:28 azithromyci n 250 mg tablet [address] [id number], [address] [place], [address], 5 17:19:28 prednisone 10 mg tablet [address] [id number], [address] [place], [address], 4 17:07:19 Patient TargetsNo targets recorded. Patient InstructionsNo instructions recorded. Reason for Referral None Reported. Results Created Date Observation Date Name Description Value Unit Range Abnormal Flag Note LastModifiedBy Organization Detail LastModifiedTime 02/22/1902/22/2022 BMP, serum or plasm a BUN 7 Not Available [facility] [address], [address] 02/22/2022 15:35:55 02/22/1902/22/2022 BMP, serum or plasm a Ca I Ca 1.14 Not Available [facility] - [address], [phone] 02/22/2022 15:35:55 02/22/19 23 02/22/2022 BMP, serum or plasm a CI- 100 Not Available [facility] [address], [phone] 02/22/2022 15:35:55 02/22/19 23 02/22/2022 BMP, serum or plasm a CRE 0.7 Not Available [facility] [address], [address] [place] [id number] 02/22/2022 15:35:55 02/22/19 23 02/22/2022 BMP, serum or plasm a GLU 127 Not Available [facility] [address], [address] [place] [address] 02/22/2022 15:35:55 02/22/19 23 02/22/2022 BMP, serum or plasm a K+ 3.7 Not Available [facility] [address], [address] [place] [address] 02/22/2022 15:35:55 02/22/19 23 02/22/2022 BMP, serum or plasm a Na+ 139 Not Available [facility] [address], [address] [place] [address] 02/22/2022 15:35:55 02/22/19 23 02/22/2022 BMP, serum or plasm a tCO2 28 Not Available [facility] [address], [address] [place] [id number] 02/22/2022 15:35:55 02/22/19 23 02/22/2022 rapid flu (A+B) Flu negati ve Not Available [facility] ed [address] [place] [address], [address] [place] [address] 02/22/2022 15:35:38 02/22/19 23 02/22/2022 rapid SARS CoV 2 Ag, QL IA, respi rator y speci men rapid SARS CoV 2 Ag, QL IA, respiratory specimen negati ve Not Available [facility] ed [address] [place] [address], [address] [place] [id number] 02/22/2022 15:35:37 Result Notes None recorded. Medical Equipment None Reported. Allergies Allergen ID Allergen Name Allergen Category Reaction Reaction Severity Criticality Documentation Date Start Date Code Code System Note Provider Name and Address Organization Details Recorded Time 11056 sumatript an medicatio n Not available Not available Not available 06/12/2024 58814 RxNorm Not Available [facility] - production 08:53:30 1751 Lamictal medicatio n Not available Not available Not available 02/22/2022 02450 2 RxNorm Not Available [facility] - production 5 08:53:30 1752 Imitrex medicatio n Not available Not available Not available 02/22/2022 68833 3 RxNorm Marta Self MD [address] [facility],[address], [place], [phone] , [facility] - [employer], Environmental [employer] 3 15:26:04 Medications Name Sig Start Date [...] % 91 % 110 /min 98.2 [degF] 94358.4 8 g 130/78 mm[Hg] Not Available [facility] 3 17:58:42 Date Recorded Oxygen saturation Oxygen saturation in Arterial blood by Pulse oximetry Heart rate Body weight Body temperature Respiratory rate Body height Systolic And Diastolic Provider Name and Address Organization Details Last Updated DateTime 5 97 % 97 % 69 /min 50975.4 4 g 98 [degF] 20 /min 162.56 cm 122/83 mm[Hg] Not Available [facility] 5 17:16:04 Date Recorded Respiratory rate Heart rate Oxygen saturation Oxygen saturation in Arterial blood by Pulse oximetry Body temperature Systolic And Diastolic Provider Name and Address Organization Details Last Updated DateTime 3 18 /min 94 /min 98 % 98 % 98.2 [degF] 136/79 mm[Hg] Not Available [facility] 3 15:27:16 Date Recorded Body weight Body height Respiratory rate Body temperature Heart rate Oxygen saturation Oxygen saturation in Arterial blood by Pulse oximetry Systolic And Diastolic Provider Name and Address Organization Details Last Updated DateTime 4 29107.4 4 g 162.56 cm 16 /min 97.3 [degF] 82 /min 100 % 100 % 115/78 mm[Hg] Not Available [facility] 4 16:55:55 Date Recorded Respiratory rate Oxygen saturation Oxygen saturation in Arterial blood by Pulse oximetry Inhaled oxygen flow rate Body temperature Heart rate Systolic And Diastolic Provider Name and Address Organization Details Last Updated DateTime 3 18 /min 92 % 92 % 2 L/min 98.6 [degF] 103 /min 130/82 mm[Hg] Not Available [facility] 3 10:56:19 Social History None recorded. Functional [...] Shivam Claudio MD Main - [facility] [address] [place] [phone] 02/15/2022 13:25:36 02/19/2022 09:21:06 Cough 16587364 R05.9 s/p COVID. Mild wheezing. O2 sats stable. Will give an additional neb and prescribe neb treatments . If symptoms persist, recommend visit for possible treatment of COPD exacerbati on [id number] Shivam Claudio MD Main - [facility] [address] [place] [phone] 02/16/2022 14:19:43 02/19/2022 10:07:19 Acute exacerbation of chronic obstructive pulmonary disease 512513487 J44.1 Will treat empiricall y for COPD exacerbati on and add on an expectoran t [id number] Marta Self MD Main - [facility] [address] [place] [phone] 02/22/2022 15:25:37 02/27/2022 11:10:24 Acute exacerbation of chronic obstructive pulmonary disease [id number] J44.1 with possible pneumonia- patient would benefit [...] knows our number can call for repeat [facility] visit if she feels she needs it. Red flags reviewed as above [id number] Bj Mcqueen MD Main - [facility] [address] [place] [phone] 03/19/2022 17:58:31 03/21/2022 09:18:52 Pain of nose 409851187 J34.89 [id number] Rinku Houser MD Main - [facility] [address] [place] [phone] 06/21/2022 15:27:15 06/22/2022 14:48:09 Fracture of foot 33945542 S92.902A [id number] Elda Jose MD Main - [facility] [address] [place] [phone] 11/12/2022 10:56:13 11/12/2022 22:59:10 Upper respiratory infection 17457581 J06.9 URI sx starting on Saturday. SpO2 [...] Reviewed warning s/sx with pt. Pt and seismic observer agree with plan. [id number] Deacon Easley MD Main - [facility] [address] [place] [phone] 08/21/2023 16:55:50 08/21/2023 19:47:16 Acute exacerbation of chronic obstructive pulmonary disease [id number] J44.1 This 57-year-ol d female with COPD has has a cry cough and wheezing for three days with a low grade fever. I ordered a Prednisone taper and recommende d Mucinex or Robitussin . She will continue using her usual inhalers and follow-up with her PCP. The patient agreed with this plan. [id number] Champ Rosario MD Main - [facility] [address] [place] [phone] 06/12/2024 17:15:57 06/12/2024 19:59:23 Acute exacerbation of chronic obstructive pulmonary disease [id number] J44.1 Health Concerns Section Related Observation LastModified by Organization Detai ls LastModified Time None Recorded Concern Status LastModified by Organization Details LastModified Time None Recorded Advance Directives Directive None Recorded Payers Insurance Date Sequence Insurance Name Policy Number Policy Prather Covered Member ID Prather Member ID Guarantor Name 11/12/2022 1 [facility] - DOS PRIOR TO 2022 - DUAL ELIGIBLE (MEDICARE REPLACEMENT/ADV ANTAGE - HMO) Annie Pak [id number] Annie Pak 06/12/2024 1 [facility] - DOS ON OR AFTER 2022 - DUAL ELIGIBLE - [employer] OPT[employer] AND ONE CARE (MEDICARE REPLACEMENT/ADV ANTAGE - HMO) Annie Pak [id number] Annie Pak Notes Date Note Type Note Provider Name and Address Organization Details Recorded Time 03/19/2022 text/html [facility] Nursing Assessment: Chief Complaints: URI PMH: COPD/Asthma, Hypertension Comments: Member calling for [facility] visit for eval nasal congestion and burning in nostrils x 3-4 days attempt Troy gel with some relief deny fevers cont with chills recent treatment for pneumonia Bj Mcqueen MD [address] [place] [address],[address], [place], [phone], [facility] 03/19/2022 18:12:52 06/21/2022 text/html This was a supervised home visit with seismic observer Suzanne Morelos. [facility] Nursing Assessment: Reason For [...] .................. .................. .................. .................. .................. .................. ............... Machine Skiver Note From Suzanne Morelos: Dispatched Urgent to [...] States she has taken APAP prior to [facility] arrival. Patient rested and iced extremity prior to our arrival. Patient noted to have swelling and bruising to the lateral aspect of the left dorsal foot with the contusion noted to be roughly [id number]. Pedal pulses present. Pt reports secondary complaint of left knee pain due to the position she landed in. Pt denies head, neck, or back pain. Pt denies LOC. Vitals as noted. Pt denies any additional complaints at this time. No other gross or obvious signs of trauma noted. [facility] consulted and recommends Pt be evaluated at an Urgent Care for X-Rays R/O Fx. Pt states the local Urgent Care closes soon and she would need to go to local ED. Transport via local EMS offered to Pt. Pt states she will drive herself to local ED AMA. Completed by Ta Aguilera MA [id number] .................. .................. .................. .................. .................. .................. .................. ............... Disposition: Fulfilled Rinku Houser MD [address] [facility],[address], [place], [address], CLEM EWING 06/21/2022 16:50:32 11/12/2022 text/html CRC [...] .................. .................. .................. .................. .................. .................. ............... Machine Skiver Note From Artis Kate: Dispatched to the [...] .................. ............... Disposition: Fulfilled Elda Jose MD [address] [place] [address],[address], [place], [phone], [facility] 11/12/2022 16:08:23 08/21/2023 text/html CRC Nurse Triage Notes (Tara Cramer): Reason For Request: Pt reporting severe cough>chills>nause a>temperature that has been on/off>headache>st ates yesterdays covid test was negative>some sob due to cough, nose is stuffy Chief Complaints: Cough, Fever/Chills PMH: COPD/Asthma, Hypertension Comments: Point Of Sale Associate verified the member's name//address and phone number. [...] s/s and seek emergency treatment if needed Machine Skiver POC Test Results from Leon Ramirez - [facility] Rapid COVID antigen (17:31:46) COVID: - Rapid influenza antigen (17:31:48) Flu: - .................. .................. .................. .................. .................. .................. .................. ............... Machine Skiver Note From Leon Ramirez: Smartcare visit for [...] recently discontinued from incruse inhaler. Consulted with [facility] [place]. Easley who ordered 60 mg of oral prednisone given on scene. Pt instructed to refill inhaler and package pick up some OTC mucinex as well. Reviewed red flags for ED. Patient education provided. .................. .................. .................. .................. .................. .................. .................. ............... Disposition: Fulfilled Deacon Easley MD [address] [place] [address],[address], [place], [phone], [facility] 08/21/2023 17:32:43 06/12/2024 text/html CRC Nurse Triage [...] her recuse inhaler. 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 She has been taking OTC cough, with changeI provided information on the mobile health provider response time and advised the patient and/or caregiver to monitor reported signs and symptoms. I discussed the warning signs of when to seek emergency care. Machine Sk[employer] Organization Information for [facility] Legal Name: [facility] TransportationAddr ess: [address] [facility], [place] [address], Medical Director: Gregg VITALE No.: [id number] Machine Skiver POC Test Results from Bessy Espinal - [facility] Rapid COVID antigen (13:55:03)COVID: -Attachments uploaded as part of this test result can be found under Documents section. Rapid influenza antigen (13:55:03)Flu: -Attachments uploaded as part of this test result can be found under Documents section. .................. .................. .................. .................. .................. .................. .................. ............... Machine Skiver Note From Bessy Espinal: [facility] 3 dispatched to above address [...] at home Covid/flu test, negative for both. [facility] called for orders for azithromycin and prednisone. Orders confirmed, 500mg PO azithromycin, 40mg PO prednisone. Pt able to take all PO medications without incident. Pt advised that should her symptoms continue to worsen and she begins to exhibit red flag symptoms, she should seek immediate hospital care. [facility] 3 clear without incident. .................. .................. .................. .................. .................. .................. .................. ............... [facility] Consulted: Champ Rosario .................. .................. .................. .................. .................. .................. .................. ............... Disposition: Fulfilled Champ Rosario MD [address] [place] [address],[address], [place], [phone], [employer] 06/12/2024 18:18:57 OBGyn Episode No OBEpisode recorded.
--- OUTSIDE RECORDS SUMMARY | 2024-08-25 14:59 | XMS_ITS | Clinical Summary ---
Author Organization [facility] Address [address] [place] [address] Care Team Providers Care Low Pressure Firer Name Role Phone Sandi Andrade MD Primary Care Provider [phone] Allergies Active Allergy Reactions Criticality Noted Date [...] Dysphagia GERD (gastroesophageal reflux disease) Aspiration pneumonia ([facility] V24, [facility] V28) Chronic constipation Alcohol use disorder COPD (chronic obstructive pulmonary disease) ([facility] V24, [facility] V28) Bipolar 1 disorder ([facility] V24, [facility] V28) Obesity SUNSHINE (obstructive sleep apnea) HTN [...] Group ID:ICO Type:Not on file Address: [facility] [place] [address] Care Teams Low Pressure Firer Relationship Specialty Start Date End Date Sandi Andrade MD [address] [facility] [place] [id number] PCP - General Internal Medicine 01/01/24
== END 2024-08-25 13:57 | disposition home or self-care (01) ==
LOC: HO.HPS 13:39
PROVIDERS: PCP Internal Medicine; Visit Provider Internal Medicine
DX: J44.9 Chronic obstructive pulmonary disease, unspecified (principal); Z87.891 Personal history of nicotine dependence; J98.4 Other disorders of lung; G47.34 Idiopathic sleep related nonobstructive alveolar hypoventilation; J30.9 Allergic rhinitis, unspecified
CPT/HCPCS: 99213

== ENCOUNTER → 2024-08-25 13:38 | Outpatient (BNVA) | payer OTHER, SELFPAY | PROVIDERS: PCP Internal Medicine; Visit Provider Internal Medicine | DX: G47.34 Idiopathic sleep related nonobstructive alveolar hypoventilation (principal); J98.4 Other disorders of lung; J30.9 Allergic rhinitis, unspecified; Z87.891 Personal history of nicotine dependence; J44.9 Chronic obstructive pulmonary disease, unspecified | CPT/HCPCS: 99212 ==

== ENCOUNTER 2024-09-01 10:05 | Outpatient (AMB) | payer OTHER, SELFPAY ==
--- NOTE | 2024-09-01 10:07 | AM.OFFWIN_ITS ---
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: No Is last menstrual period known: No Post menopausal: No Patient : No Allergies sumatriptan (From IMITREX) Allergy (Intermediate, Verified 09/01/24 10:12) RASH Medication List - Last Reconciled 09/01/24 by Lenka Martel MD albuterol sulfate 90 mcg/actuation 2 puffs inhalation Q6H PRN albuterol sulfate 0.63 mg (3 mL) inhalation QID PRN alendronate (Fosamax) 70 mg PO QWEEK atorvastatin 10 mg PO QPM cholecalciferol (vitamin D3) 50 mcg PO DAILY clonazepam 1 mg PO BID disposable gloves As directed-size medium fluticasone propionate 50 mcg/actuation 1 spray intranasal DAILY utwuiwvftlk-biqtoiutu-oizfdhwj 200-62.5-25 mcg (Trelegy Ellipta) 1 inh inhalation DAILY gabapentin 400 mg PO BEDTIME incontinence pad, liner, disp As directed (4 pks per month) [Kneeling Scooter As directed] montelukast 10 mg PO DAILY naltrexone microspheres ER (Vivitrol) mg IM pantoprazole 40 mg PO BID Zepbound (tirzepatide (weight loss)) 5 mg (0.5 mL) subcut QWEEK NS Do you need a note to return to daycare/school/sports/work: No HPI EP-b/l hands pain from a fall HPI Details History - The patient is a 58-year-old female pr esenting with a fall resulting in injury. - The incident occurred two days ago whe n the patient was attempting to fix a light in her hallway while standing on an unstable object, not a stool. - During the incident, the patient fell forward and landed on her buttocks. - As a result, she reports significant p ain in her buttocks, particularly on both sides near her cheeks. - She also experienced pain in her thumb s, which she reports started after the fall, mentioning that both hands were involved. - The patient indicated that she had a p re-existing condition in her thumb, worsening after the fall, with previous plans for wrist surgery. - The pain is exacerbated with movement, particularly in her thumbs, and remains severe even with limited relief from mbyd-nst-krrefcc medications like Tylenol and Motrin, which she subsequently vomited. - The patient reports she had osteoporos is, which possibly contributed to the injury. - The patient has a scheduled visit with orthopedics for a pre-existing wrist issue and attempted but was unable to contact them after the fall for an earlier appointment. Medical History: - Osteoporosis Social History: - The patient lives alone and does not h ave reliable assistance for home tasks. - Reports a history of completing tasks using unstable items like milk crates. - Plans to obtain a more stable ladder f or household tasks. - Her , mentioned as someone who would caution her against using unsafe methods. Problem List - Fall resulting in buttocks pain - Osteoporosis - Thumb and wrist pain bilateral Patient Instructions - Stop taking ibuprofen, Aleve, and othe r NSAIDs like Motrin. - Take only the specified medication pre scribed during the visit, which will be ready at the pharmacy. - Use Tylenol if needed for pain relief, as directed. - Obtain a stable ladder for future hous ehold tasks instead of using unsafe alternatives. - Follow-up with orthopedic appointment as scheduled. - proceed for x-ray both hands Review of Systems - General: No fever no chills - Neurological: No headaches no dizziness: - Ear nose throat: No sore throat no hearing difficulty no ear pain - Cardiovascular: No syncope, no chest pain, no palpitations - Gastrointestinal: No nausea vomiting or diarrhea Physical Exam General: No acute distress HEENT: No acute findings Neck: Supple Respiratory system: Able to talk in full sentences, Gastrointestinal: No pain Extremities: Full mobility in hands, but patient reports severe pain in both thumbs and buttocks. No visible bruising noted. 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: Alert awake oriented x3 motor sensory intact Skin: Normal turgor [facility] Medical History Weakness generalized Nocturnal hypoxemia Restrictive lung disease Musculoskeletal pain Anxiety and depression Ex-smoker Allergic rhinitis Cataract Vitamin B12 deficiency Vitamin D insufficiency GERD (gastroesophageal reflux disease) ETOH abuse Migraine SUNSHINE on CPAP COPD (chronic obstructive pulmonary disease) Surgical History History of esophagogastroduodenoscopy (EGD) H/O colonoscopy S/P PRINCESS (total abdominal hysterectomy) History of total hysterectomy Family History Father Alcoholic Mother Diabetes mellitus HTN (hypertension) Mental health disorder Brother Substance use disorder Mental health disorder Brother Substance use disorder Daughter Mental health disorder Brother Substance use disorder Social History Household Members: Spouse Housing: House Do you presently have visiting nurse or other home services: No Alcohol intake: former Comment: all counts correct Patient Tobacco Use Status: Former Tobacco user Tobacco use type: Cigarette e-Cigarette/Vaping Use: Never Used Second Hand Smoke Exposure: No Substance Use Type: Crack/Cocaine Advance Directives Date on File: 02/28/22 Patient : No service: No Current occupational status: disabled 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 Cognitive needs: No Hearing needs: No Vision needs: Yes Physical Exam Vital Signs: Last Vital Signs Temp 97.5 F 09/01/24 10:08 Pulse 86 09/01/24 10:08 BP 106/62 09/01/24 10:08 Pulse Ox 96 09/01/24 10:08 Oxygen Delivery Method Room Air 09/01/24 10:08 BMI result Body Mass Index 33.9 Assessment & Plan Assessment & Plan (1) Fall: Code(s): W19.XXXA - Unspecified fall, initial encounter Qualifiers: Encounter type: initial encounter Qualified Code(s): W19.XXXA - Unspecified fall, initial encounter (2) Bilateral hand pain: Code(s): M79.641 - Pain in right hand; M79.642 - Pain in left hand (3) Bilateral buttock pain: Code(s): M79.18 - Myalgia, other site (4) History of osteoporosis: Code(s): Z87.39 - Personal history of other diseases of the musculoskeletal system and connective tissue Plan History - The patient is a 58-year-old female presenting with a fall resulting in injury. - The incident occurred two days ago when the patient was attempting to fix a light in her hallway while standing on an unstable object, not a stool. - During the incident, the patient fell forward and landed on her buttocks. - As a result, she reports significant pain in her buttocks, particularly on both sides near her cheeks. - She also experienced pain in her thumbs, which she reports started after the fall, mentioning that both hands were involved. - The patient indicated that she had a pre-existing condition in her thumb, worsening after the fall, with previous plans for wrist surgery. - The pain is exacerbated with movement, particularly in her thumbs, and remains severe even with limited relief from edfd-lfs-odmkybk medications like Tylenol and Motrin, which she subsequently vomited. - The patient reports she had osteoporosis, which possibly contributed to the injury. - The patient has a scheduled visit with orthopedics for a pre-existing wrist issue and attempted but was unable to contact them after the fall for an earlier appointment. Medical History: - Osteoporosis Social History: - The patient lives alone and does not have reliable assistance for home tasks. - Reports a history of completing tasks using unstable items like milk crates. - Plans to obtain a more stable ladder for household tasks. - Her , mentioned as someone who would caution her against using unsafe methods. Problem List - Fall resulting in buttocks pain - Osteoporosis - Thumb and wrist pain bilateral Patient Instructions - Stop taking ibuprofen, Aleve, and other NSAIDs like Motrin. - Take only the specified medication prescribed during the visit, which will be ready at the pharmacy. - Use Tylenol if needed for pain relief, as directed. - Obtain a stable ladder for future household tasks instead of using unsafe alternatives. - Follow-up with orthopedic appointment as scheduled. - proceed for x-ray both hands Medications: New diclofenac sodium 75 mg PO BID 20 tabs 0RF pain 10 days Coding Level of Care Code Est Pt Level 4 (57444) Diagnoses Fall, initial encounter W19.XXXA Encounter type: initial encounter Bilateral hand pain M79.641; M79.642 Bilateral buttock pain M79.18 History of osteoporosis Z87.39
[2024-09-01 10:08] VITALS: BP 106/62; PULSE 86; TEMP 36.4; O2SAT 96; BMI 33.9
--- OUTSIDE RECORDS SUMMARY | 2024-09-01 11:05 | XMS_ITS | Data Portability ---
Author Organization [employer] [facility], [facility] Address [address] [place] [phone] Care Team Providers Care Tax Representative Name Role Phone HIM CCA OTHER TOM MARTINEZ Primary Care Provider [phone] Assessment Encounter Date Assessment Date Assessment LastModified [...] assessment and plan as documented by the piano assembler. I provided real time medical direction for this encounter and was immediately available to provide additional phone based assistance as needed. History as noted by piano assembler. Pt reports that earlier today while walking [...] also need to follow up with a manager retail/ortho pedic homeland security program specialist after the diagnosis is made and she can get a referral from the ED or urgent care. [email or web address] Not available 06/21/2022 16:50:16 06/12/2024 06/12/2024 I have reviewed and agree with the assessment and plan as documented by the piano assembler. I provided real-time medical direction for this encounter and was immediately available to provide additional phone-based assistance as needed. History as noted in EMR and by piano assembler. 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 Procedures None recorded. Surgeries None recorded. Imaging None recorded. Medication Orders prednisone 10 mg tablet 2024 025 [facility]/Pharmacy #[id number], [address] [place] [address], [address], 5 17:19:28 azithromyci n 250 mg tablet 2024 025 [facility]/Pharmacy #[id number], [address] [place], [address], 5 17:19:28 prednisone 10 mg tablet 2023 024 [facility]/Pharmacy #[id number], [address] [place], [address], 4 17:07:19 Patient TargetsNo targets recorded. Patient InstructionsNo instructions recorded. Reason for Referral None Reported. Results Created Date Observation Date Name Description Value Unit Range Abnormal Flag Note LastModifiedBy Organization Detail LastModifiedTime 02/22/1902/22/2022 BMP, serum or plasm a BUN 7 Not Available [facility] [address], [address] 02/22/2022 15:35:55 02/22/1902/22/2022 BMP, serum or plasm a Ca I Ca 1.[address] [facility] - [address], [address] 02/22/2022 15:35:55 02/22/19 23 02/22/2022 BMP, serum or plasm a CI- 100 Not Available [facility] - [facility] [address], [address] 02/22/2022 15:35:55 02/22/19 23 02/22/2022 BMP, serum or plasm a CRE 0.7 Not Available [facility] [address], [address] [place] [address] 02/22/2022 15:35:55 02/22/19 23 02/22/2022 BMP, serum or plasm a GLU 127 Not Available [facility] [address], [address] [place] [address] 02/22/2022 15:35:55 02/22/19 23 02/22/2022 BMP, serum or plasm a K+ 3.7 Not Available [facility] - [facility] [address], [address] [place] [address] 02/22/2022 15:35:55 02/22/19 23 02/22/2022 BMP, serum or plasm a Na+ 139 Not Available [facility] - [facility] [address], [address] [place] [address] 02/22/2022 15:35:55 02/22/19 23 02/22/2022 BMP, serum or plasm a tCO2 28 Not Available [facility] [address], [address] [place] [address] 02/22/2022 15:35:55 02/22/19 23 02/22/2022 rapid flu (A+B) Flu negati ve Not Available [facility] ed [address] [place] [address], [address] [place] [address] 02/22/2022 15:35:38 02/22/19 23 02/22/2022 rapid SARS CoV 2 Ag, QL IA, respi rator y speci men rapid SARS CoV 2 Ag, QL IA, respiratory specimen negati ve Not Available [facility] ed [address] [place] [address], [address] [place] [address] 02/22/2022 15:35:37 Result Notes None recorded. Medical Equipment None Reported. Allergies Allergen ID Allergen Name Allergen Category Reaction Reaction Severity Criticality Documentation Date Start Date Code Code System Note Provider Name and Address Organization Details Recorded Time 99633 sumatript an medicatio n Not available Not available Not available 06/12/2024 50048 RxNorm Not Available [facility] - production 08:53:30 1751 Lamictal medicatio n Not available Not available Not available 02/22/2022 52281 2 RxNorm Not Available [facility] - production 5 08:53:30 1752 Imitrex medicatio n Not available Not available Not available 02/22/2022 64099 3 RxNorm Marta Self MD [address] [facility],[address], [place], [address] , [facility] [employer], [employer] 3 15:26:04 Medications Name Sig Start Date [...] % 91 % 110 /min 98.2 [degF] 03045.4 8 g 130/78 mm[Hg] Not Available [employer] 3 17:58:42 Date Recorded Oxygen saturation Oxygen saturation in Arterial blood by Pulse oximetry Heart rate Body weight Body temperature Respiratory rate Body height Systolic And Diastolic Provider Name and Address Organization Details Last Updated DateTime 5 97 % 97 % 69 /min 25229.4 4 g 98 [degF] 20 /min 162.56 cm 122/83 mm[Hg] Not Available [employer] 5 17:16:04 Date Recorded Respiratory rate Heart rate Oxygen saturation Oxygen saturation in Arterial blood by Pulse oximetry Body temperature Systolic And Diastolic Provider Name and Address Organization Details Last Updated DateTime 3 18 /min 94 /min 98 % 98 % 98.2 [degF] 136/79 mm[Hg] Not Available [employer] [facility] 3 15:27:16 Date Recorded Body weight Body height Respiratory rate Body temperature Heart rate Oxygen saturation Oxygen saturation in Arterial blood by Pulse oximetry Systolic And Diastolic Provider Name and Address Organization Details Last Updated DateTime 4 35439.4 4 g 162.56 cm 16 /min 97.3 [degF] 82 /min 100 % 100 % 115/78 mm[Hg] Not Available [facility] 4 16:55:55 Date Recorded Respiratory rate Oxygen saturation Oxygen saturation in Arterial blood by Pulse oximetry Inhaled oxygen flow rate Body temperature Heart rate Systolic And Diastolic Provider Name and Address Organization Details Last Updated DateTime 3 18 /min 92 % 92 % 2 L/min 98.6 [degF] 103 /min 130/82 mm[Hg] Not Available [facility] 3 10:56:19 Social History None recorded. Functional [...] [id number] Shivam Claudio MD Main - [facility] [address] [place] [phone] 02/15/2022 13:25:36 02/19/2022 09:21:06 Cough 82962080 R05.9 s/p COVID. Mild wheezing. O2 sats stable. Will give an additional neb and prescribe neb treatments . If symptoms persist, recommend visit for possible treatment of COPD exacerbati on [id number] Shivam Claudio MD Main - [facility] [address] [place] [phone] 02/16/2022 14:19:43 02/19/2022 10:07:19 Acute exacerbation of chronic obstructive pulmonary disease 492379654 J44.1 Will treat empiricall y for COPD exacerbati on and add on an expectoran t [id number] Marta Self MD Main - [facility] [address] [place] [phone] 02/22/2022 15:25:37 02/27/2022 11:10:24 Acute exacerbation of chronic obstructive pulmonary disease 016354909 J44.1 with possible pneumonia- patient would benefit [...] [id number] Bj Mcqueen MD Main - [facility] [address] [place] [phone] 03/19/2022 17:58:31 03/21/2022 09:18:52 Pain of nose 497328873 J34.89 [id number] Rinku Houser MD Main - [facility] [address] [place] [phone] 06/21/2022 15:27:15 06/22/2022 14:48:09 Fracture of foot 72521319 S92.902A 11029 Elda Jose MD Main - [facility] [address] [place] [phone] 11/12/2022 10:56:13 11/12/2022 22:59:10 Upper respiratory infection 06405257 J06.9 URI sx starting on Saturday. SpO2 [...] Reviewed warning s/sx with pt. Pt and piano assembler agree with plan. [id number] Deacon Easley MD Main - [facility] [address] [place] [phone] 08/21/2023 16:55:50 08/21/2023 19:47:16 Acute exacerbation of chronic obstructive pulmonary disease 853390194 J44.1 This 57-year-ol d female with COPD has has a cry cough and wheezing for three days with a low grade fever. I ordered a Prednisone taper and recommende d Mucinex or Robitussin . She will continue using her usual inhalers and follow-up with her PCP. The patient agreed with this plan. [id number] Champ Rosario MD Main - [facility] [address] [place] [phone] 06/12/2024 17:15:57 06/12/2024 19:59:23 Acute exacerbation of chronic obstructive pulmonary disease 385946105 J44.1 Health Concerns Section Related Observation LastModified by Organization Detai ls LastModified Time None Recorded Concern Status LastModified by Organization Details LastModified Time None Recorded Advance Directives Directive None Recorded Payers Insurance Date Sequence Insurance Name Policy Number Policy Prather Covered Member ID Prather Member ID Guarantor Name 11/12/2022 1 [facility] - DOS PRIOR TO 2022 - DUAL ELIGIBLE (MEDICARE REPLACEMENT/ADV ANTAGE - HMO) Annie Pak [id number] Annie Pak 06/12/2024 1 [facility] - DOS ON OR AFTER 2022 - DUAL ELIGIBLE - LONG TERM OPTIONS AND ONE CARE (MEDICARE REPLACEMENT/ADV ANTAGE - HMO) Annie Pak [id number] Annie Pak Notes Date Note Type Note Provider Name and Address Organization Details Recorded Time 03/19/2022 text/html CRC Nursing Assessment: Chief Complaints: URI PMH: COPD/Asthma, Hypertension Comments: Member calling for [facility] visit for eval nasal congestion and burning in nostrils x 3-4 days attempt [place] gel with some relief deny fevers cont with chills recent treatment for pneumonia Bj Mcqueen MD [address] [place] [address],[address], [place], [phone], [facility] 03/19/2022 18:12:52 06/21/2022 text/html This was a supervised home visit with piano assembler Suzanne Morelos. CRC Nursing Assessment: Reason For [...] .................. .................. .................. .................. .................. .................. ............... [employer] Programmer Note From Suzanne Morelos: Dispatched Urgent to [...] she has taken APAP prior to [facility] arrival. Patient rested and iced extremity prior to our arrival. Patient noted to have swelling and bruising to the lateral aspect of the left dorsal foot with the contusion noted to be roughly [id number]. Pedal pulses present. Pt reports secondary complaint of left knee pain due to the position she landed in. Pt denies head, neck, or back pain. Pt denies LOC. Vitals as noted. Pt denies any additional complaints at this time. No other gross or obvious signs of trauma noted. [facility] consulted and recommends Pt be evaluated at an Urgent Care for X-Rays R/O Fx. Pt states the local Urgent Care closes soon and she would need to go to local ED. Transport via local EMS offered to Pt. Pt states she will drive herself to local ED AMA. Completed by Ta Aguilera MA [id number] .................. .................. .................. .................. .................. .................. .................. ............... Disposition: Fulfilled Rinku Houser MD [address] [facility],[address], [place], [address], CLEM [facility]ING 06/21/2022 16:50:32 11/12/2022 text/html CRC [...] .................. .................. .................. .................. .................. .................. ............... [employer] Programmer Note From Artis Kate: Dispatched to the [...] .................. ............... Disposition: Fulfilled Elda Jose MD [address] [place] [address],[address], [place], [phone], [employer] 11/12/2022 16:08:23 08/21/2023 text/html CRC Nurse Triage Notes (Tara Cramer): Reason For Request: Pt reporting severe cough>chills>nause a>temperature that has been on/off>headache>st ates yesterdays covid test was negative>some sob due to cough, nose is stuffy Chief Complaints: Cough, Fever/Chills PMH: COPD/Asthma, Hypertension Comments: Military Equipment Specialist verified the member's name//address and phone number. [...] s/s and seek emergency treatment if needed [employer] Programmer POC Test Results from Leon Ramirez - [facility] Rapid COVID antigen (17:31:46) COVID: - Rapid influenza antigen (17:31:48) Flu: - .................. .................. .................. .................. .................. .................. .................. ............... [employer] Programmer Note From Leon Ramirez: [facility] visit for [...] discontinued from incruse inhaler. Consulted with [facility] [place] Easley who ordered 60 mg of oral prednisone given on scene. Pt instructed to refill inhaler and case picker some OTC mucinex as well. Reviewed red flags for ED. Patient education provided. .................. .................. .................. .................. .................. .................. .................. ............... Disposition: Fulfilled Deacon Easley MD [address] [place] [address],[address], [place], [address], [employer] 08/21/2023 17:32:43 06/12/2024 text/html CRC Nurse Triage [...] her recuse inhaler. 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 She has been taking OTC cough, with changeI provided information on the mobile health provider response time and advised the patient and/or caregiver to monitor reported signs and symptoms. I discussed the warning signs of when to seek emergency care. [employer] Programmer Organization Information for [facility]inal [facility] Legal Name: [facility] TransportationAddr ess: [address] [facility], [place] [address], Medical Director: Gregg VITAEL No.: [id number] [employer] Programmer POC Test Results from Bessy Espinal - [facility] Rapid COVID antigen (13:55:03)COVID: -Attachments uploaded as part of this test result can be found under Documents section. Rapid influenza antigen (13:55:03)Flu: -Attachments uploaded as part of this test result can be found under Documents section. .................. .................. .................. .................. .................. .................. .................. ............... [employer] Programmer Note From Bessy Espinal: [facility] [...] home Covid/flu test, negative for both. [facility] called for orders for azithromycin and prednisone. Orders confirmed, 500mg PO azithromycin, 40mg PO prednisone. Pt able to take all PO medications without incident. Pt advised that should her symptoms continue to worsen and she begins to exhibit red flag symptoms, she should seek immediate hospital care. MIH 3 clear without incident. .................. .................. .................. .................. .................. .................. .................. ............... [facility] Consulted: Champ Rosario .................. .................. .................. .................. .................. .................. .................. ............... Disposition: Fulfilled Champ Rosario MD [address] [place] [address],[address], [place], [address], [employer] 06/12/2024 18:18:57 OBGyn Episode No OBEpisode recorded.
--- OUTSIDE RECORDS SUMMARY | 2024-09-01 11:05 | XMS_ITS | Clinical Summary ---
Author Organization [employer] Address [address] [place] [address] Care Team Providers Care Emergency Veterinarian Name Role Phone Sandi Andrade MD Primary Care Provider [phone] Allergies Active Allergy Reactions Criticality Noted Date [...] Dysphagia GERD (gastroesophageal reflux disease) Aspiration pneumonia ([facility] V24, [facility] V28) Chronic constipation Alcohol use disorder COPD (chronic obstructive pulmonary disease) ([facility] V24, [facility] V28) Bipolar 1 disorder ([facility] V24, [facility] V28) Obesity SUNSHINE (obstructive sleep apnea) HTN [...] PCV) 11/05/2013 Colorectal Cancer Screening: Colonoscopy 01/10/2022 HIV Screening 01/10/2022 Hepatitis C Screening 01/10/2022 Medicare Annual Wellness Visit 01/10/2022 Social Influencers of Health Screening 01/10/2022 COVID-19 Vaccine ( season) 2023 11/28/2022, 11/02/2021, 07/19/2021, Additional history exists Depression Screening 02/12/2024 Influenza Vaccine (#1) 2024 , 11/02/2021, 03/13/2021, [...] Group ID:ICO Type:Not on file Address: [facility] [place] [address] Care Teams Emergency Veterinarian Relationship Specialty Start Date End Date Sandi Andrade MD [address] [facility] [phone] PCP - General Internal Medicine 01/01/24
== END 2024-09-01 10:56 | disposition home or self-care (01) ==
PROVIDERS: PCP Internal Medicine; Visit Provider Internal Medicine
DX: M79.641 Pain in right hand (principal); M79.642 Pain in left hand; M79.18 Myalgia, other site; Z87.39 Personal history of other diseases of the musculoskeletal system and connective tissue; W19.XXXA Unspecified fall, initial encounter

== ENCOUNTER 2024-09-01 10:05 | Outpatient (REF) | payer OTHER, SELFPAY ==
--- NOTE | ~2024-09-01 | XR_ITS ---
EXAMINATION: XR HAND/WRIST, RIGHT XR HAND/WRIST, LEFT CLINICAL INFORMATION: W19.XXXA - Unspecified fall, initial encounter COMPARISON: 03/17/2024. TECHNIQUE: PA, lateral, and oblique views of the each hand and wrist. FINDINGS: RIGHT HAND/WRIST: No fracture, dislocation, or suspicious bone lesion. Normal alignment. No periarticular osteopenia or erosion. Mild osteoarthrosis noted in the first CMC joint and STT joints. Joint spaces otherwise preserved. No soft tissue abnormalities. LEFT HAND/WRIST: No fracture, dislocation, or suspicious bone lesion. Normal alignment. No periarticular osteopenia or erosion. Moderate osteoarthrosis again noted in the first CMC joint and STT joints. Joint spaces otherwise preserved. No soft tissue abnormalities. XR/XR Hand Bilat min 3v IMPRESSION: 1. No acute bony abnormalities of either hand/wrist. 2. 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 Electronically signed by: Arvind Lew MD 09/01/2024 10:57 AM EDT
== END 2024-09-01 10:06 | disposition home or self-care (01) ==
LOC: HO.HMGCX 10:05
PROVIDERS: PCP Internal Medicine; Visit Provider Internal Medicine
DX: M79.641 Pain in right hand (principal); M79.642 Pain in left hand; M79.18 Myalgia, other site; W19.XXXD Unspecified fall, subsequent encounter; Z87.39 Personal history of other diseases of the musculoskeletal system and connective tissue
CPT/HCPCS: 73130; 99212

== ENCOUNTER → 2024-09-01 10:34 | Outpatient (BNV) | payer OTHER, SELFPAY | PROVIDERS: PCP Internal Medicine; Visit Provider Radiology Diagnostic Radiology | DX: M18.0 Bilateral primary osteoarthritis of first carpometacarpal joints (principal) | CPT/HCPCS: 73110; 73130 ==

== ENCOUNTER 2024-09-15 14:13 | Outpatient (AMB) | payer OTHER, SELFPAY ==
--- NOTE | 2024-09-15 14:15 | MHC.OFFVIS ---
Vital Signs 09/15/24 14:18 Height 5 ft 4 in Weight 197 lb BMI 33.8 Intake Visit Reasons: OV - B/L thumb pain, right worse Intake Note: Annie is a 57 year old right hand dominant female who presents today for follow up of her bilateral thumb pain, left greater than right. At her last visit on 03/17/24 she was given a right basal joint injection. She was given a left basal joint injection on 12/10/23. Patient reports constant pain on both thumbs, feeling of bone on bone on her left thumb. Complains of locking in her thumb in the MCP joint of her left thumb. Denies any previous treatments since her last visit. History of left carpal tunnel release, 01/30/24, by Dr. Patterson. Allergies sumatriptan (From IM[facility]X) Allergy (Intermediate, Verified 09/15/24 14:36) RASH HPI HPI OV - B/L thumb pain, right worse: Details: Annie is a 57 year old right hand dominant female who presents today for follow up of her bilateral thumb pain, left greater than right. At her last visit on 03/17/24 she was given a right basal joint injection. She was given a left basal joint injection on 12/10/23. Patient reports constant pain on both thumbs, feeling of bone on bone on her left thumb. Complains of locking in her thumb in the IP joint of her left thumb. Also reports pain in the volar aspect of the base of the left thumb Denies any previous treatments since her last visit. History of left carpal tunnel release, 01/30/24, by Dr. Patterson. ON LICENSE OF [facility] Medical History Weakness generalized Nocturnal hypoxemia Restrictive lung disease Musculoskeletal pain Anxiety and depression Ex-smoker Allergic rhinitis Cataract Vitamin B12 deficiency Vitamin D insufficiency GERD (gastroesophageal reflux disease) ETOH abuse Migraine SUNSHINE on CPAP COPD (chronic obstructive pulmonary disease) Surgical History History of esophagogastroduodenoscopy (EGD) H/O colonoscopy S/P PRINCESS (total abdominal hysterectomy) History of total hysterectomy Family History Father Alcoholic Mother Diabetes mellitus HTN (hypertension) Mental health disorder Brother Substance use disorder Mental health disorder Brother Substance use disorder Daughter Mental health disorder Brother Substance use disorder Social History Household Members: Spouse Housing: House Do you presently have visiting nurse or other home services: No Alcohol intake: former Comment: all counts correct Patient Tobacco Use Status: Former Tobacco user Tobacco use type: Cigarette e-Cigarette/Vaping Use: Never Used Second Hand Smoke Exposure: No Substance Use Type: Crack/Cocaine Advance Directives Date on File: 02/28/22 service: No Current occupational status: disabled 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 Neuro: Normal sensation of the tips of all digits of the bilateral hand at this time Vascular: Cap refill brisk Pain: Tenderness to palpation of the A1 rae of the left thumb Pain with locking and catching ROM: Patient is able to make a closed fist and extend all digits of left hand, but there is visible and palpable locking and catching of the left thumb Skin: No lacerations or abrasions General: No ecchymosis, erythema, or evidence of infection. Psych: Appears grossly normal Affect normal Attitude cooperative Office Procedures AMB Tendon Injection Tendon Injection 27827-Tpejct Tendon Sheath Injection All charges added?: Procedure code (CPT) selection complete Assessment & Plan Assessment & Plan (1) Trigger thumb, left thumb: Code(s): M65.312 - Trigger thumb, left thumb Category: Medical Plan 1. Left trigger thumb I educated the patient about this condition Patient is educated about the treatment options available Patient would like to proceed with steroid injection The risks and benefits of a steroid injection including but not limited to risk of damage to blood vessels, nerves, tendons, infection, skin bleaching, failure to improve symptoms, increased pain, and possible need for further injections or other intervention were discussed with the patient and the patient wishes to proceed with the steroid injection. Once consent was obtained, I sterilely prepped the area over the A1 rae of the flexor tendon sheath of the left thumb. I then injected the flexor tendon sheath with a combination of 1 mL of dexamethasone (4mg/ml), and 1% lidocaine. The patient tolerated the procedure well with no complications. If the patient continues to have locking and catching 4-6 weeks following this injection, they may call to schedule appointment to discuss alternative treatment options Follow-up prn Coding Level of Care Code Est Pt Level 3 (37494) Diagnoses Trigger thumb, left thumb M65.312 CPT Codes Tendon Injection - Tendon Injection 1: 18944-Pysmks Tendon Sheath Injection ([id number])
[2024-09-15 14:18] VITALS: BMI 33.8
--- OUTSIDE RECORDS SUMMARY | 2024-09-15 14:54 | XMS_ITS | Clinical Summary ---
[facility] Organization [facility] Address [address] [place] [address] Care Team Providers Care Clinical Exercise Physiologist Name Role Phone Sandi Andrade MD Primary Care Provider [phone] Allergies Active Allergy Reactions Criticality Noted Date [...] Dysphagia GERD (gastroesophageal reflux disease) Aspiration pneumonia ([facility] V24, [facility] V28) Chronic constipation Alcohol use disorder COPD (chronic obstructive pulmonary disease) ([facility] V24, [facility] V28) Bipolar 1 disorder ([facility] V24, [facility] V28) Obesity SUNSHINE (obstructive sleep [...] Group ID:ICO Type:Not on file Address: [address] [facility] [place] [id number] Care Teams Clinical Exercise Physiologist Relationship Specialty Start Date End Date Sandi Andrade MD [address] [facility] [place] [phone] PCP - General Internal Medicine 01/01/24
== END 2024-09-15 15:15 | disposition home or self-care (01) ==
LOC: HO.HOS 14:13
PROVIDERS: PCP Internal Medicine
DX: M65.312 Trigger thumb, left thumb (principal)
CPT/HCPCS: 20550; 99213

== ENCOUNTER → 2024-09-15 14:13 | Outpatient (BNVA) | payer OTHER, SELFPAY | PROVIDERS: PCP Internal Medicine | DX: M79.644 Pain in right finger(s) (principal); M79.645 Pain in left finger(s); M65.312 Trigger thumb, left thumb | CPT/HCPCS: 20550; 99212; J1100; J2003 ==

== ENCOUNTER 2024-10-20 11:44 | Outpatient (AMB) | payer OTHER, SELFPAY ==
[2024-10-20 12:04] VITALS: BMI 33.8
--- NOTE | 2024-10-20 12:04 | A.OFFVIS_ITS ---
Vital Signs 10/20/24 12:04 Height 5 ft 4 in Weight 197 lb BMI 33.8 Intake Visit Reasons: OV- Left Trigger Thumb Intake Note: Annie is a 58 year old right hand dominant female who presents today status post Left Trigger Thumb Injection given at her last visit on 09/15/24. Patient reports her left thumb injection did not provide much relief. She would like to discuss a left trigger thumb release. Allergies sumatriptan (From IMITREX) Allergy (Intermediate, Verified 10/20/24 12:04) RASH HPI HPI OV- Left Trigger Thumb: Details: Annie is a 58 year old right hand dominant female who presents today status post Left Trigger Thumb Injection given at her last visit on 09/15/24. Patient reports her left thumb injection did not provide much relief. She would like to discuss a left trigger thumb release. [facility] Medical History Weakness generalized Nocturnal hypoxemia Restrictive lung disease Musculoskeletal pain Anxiety and depression Ex-smoker Allergic rhinitis Cataract Vitamin B12 deficiency Vitamin D insufficiency GERD (gastroesophageal reflux disease) ETOH abuse Migraine SUNSHINE on CPAP COPD (chronic obstructive pulmonary disease) Surgical History History of esophagogastroduodenoscopy (EGD) H/O colonoscopy S/P PRINCESS (total abdominal hysterectomy) History of total hysterectomy Family History Father Alcoholic Mother Diabetes mellitus HTN (hypertension) Mental health disorder Brother Substance use disorder Mental health disorder Brother Substance use disorder Daughter Mental health disorder Brother Substance use disorder Social History Household Members: Spouse Housing: House Do you presently have visiting nurse or other home services: No Alcohol intake: former Comment: all counts correct Patient Tobacco Use Status: Former Tobacco user Tobacco use type: Cigarette e-Cigarette/Vaping Use: Never Used Second Hand Smoke Exposure: No Substance Use Type: Crack/Cocaine Advance Directives Date on File: 02/28/22 service: No Current occupational status: disabled 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 Neuro: Normal sensation of the tips of all digits of the bilateral hand at this time Vascular: Cap refill brisk Pain: Tenderness to palpation of the A1 rae of the left thumb Pain with locking and catching ROM: Patient is able to make a closed fist and extend all digits of left hand, but there is visible and palpable locking and catching of the left thumb Skin: No lacerations or abrasions General: No ecchymosis, erythema, or evidence of infection. Psych: Appears grossly normal Affect normal Attitude cooperative Assessment & Plan Assessment & Plan (1) Trigger thumb, left thumb: Code(s): M65.312 - Trigger thumb, left thumb Category: Medical Plan 1. Left trigger thumb I educated the patient about the condition. I discussed both operative and nonoperative treatment options. The patient would like to proceed with surgery. The risks and benefits of operative treatment were discussed with the patient and the patient wishes to proceed with surgery. These risks include, but are not limited to, risk of damage to blood vessels, nerves, tendons, infection, recurrence, incomplete relief of preoperative symptoms, persistent pain, possible need for further surgery, and the risks associated with regional blocks and/or anesthesia. Plan is to take the patient to the operating room at some point in the next few weeks for the following procedures: 1. Left trigger thumb release under local All of the preoperative paperwork including the consent was discussed today. All of the patient's questions were answered in the clinic today. The patient understands that they will be in contact with our assistant professor surgical technology to discuss scheduling their procedure. Patient denies diabetes, blood thinners, asthma, heart issues, lung issues, kidney issues, or current smoking. Coding Level of Care Code Est Pt Level 4 (78824) Diagnoses Trigger thumb, left thumb M65.312
--- OUTSIDE RECORDS SUMMARY | 2024-10-20 14:16 | XMS_ITS | Encounter Summary ---
Author Organization [facility] Address [address] [place] [address] Encounters * CPT with Medical [facility] at [employer] on 2024-09-09 { reasonForRequest : Patient thinks she has covid, and covid symtpoms, wants checkedout. , patientReports : , denies :[ Increased work of breathing/labored with or without fever , Unable to speak in full sentences without distre ss , Discoloration of skin -cyanosis , Needs to sleep sitting up, can t catchbreath , Shortness of breath in setting of confusion ], chiefComplaints :"Common Cold , pmh : Chronic Obstructive Pulmonary Disease (COPD), Asthma, Hyperlipidemia, Bipolar Disorder , allergies : Lamictal, Sumatriptan , o therAllergies :null, painAssessment : , visitOutcome : &quo t;, additionalComments : 58 y.o female complains of Common Cold\n\nPatient who took a home test and was +covid.\nPatient reports a productive cough with yellow phlegm.\nOccasional shortness of breath and pleuritic chest pain, patient is no acute distress over the phones, is speaking in full, clear and complete sentences, no audible breath sounds.\nReports nausea and vomiting, poor a ppetite, denies diarrhea, +headache\nNo fever/chills.\nWear o2 at HS, has been using her trelegy and albuter, taking mucinex and tylenol.\nShe would like to be evaluated.\n\nI provided information onthe mobile health provider response time and advised the patient and/or caregiver to monitor reported signs and symptoms. I discussed the warning signs of when to seek emergency care. } [facility] who tested positive for COVID. Pt presents at home on couch in no obvious distress. Pt reports testing positive for COVID several times at home over the last 4 days. Believed to have had contact with someone positive for COVID. Pt has had productive cough and slight SOB and some nausea and vomiting as well. Pt has been taking albuterol inhaler and nebs, trilegy, mucinexand tylenol. V/S taken as listed. Pt afebrile. Lung sounds clear bilaterally. COVID swab performed in home was negative however pt had 2 previous home tests showing positive that were observed to still be in dateand not . Consulted with [facility] Dr. Ling who spoke with pt about possibility of paxlovid and offered supportive measures like oral zofran and IV fluids which pt declined. Reviewed red flags for ED. Pt education on supportive care provided. Report completed by Leon Ramirez EMT-P IV_(FLUIDS_AND/OR_MEDICATION), MEDICATION_IM, POC_BLOODWORK Written by Medical [facility] on 2024-09-09
--- OUTSIDE RECORDS SUMMARY | 2024-10-20 14:16 | XMS_ITS | Continuity of Care Document ---
Author Name [facility], Medical Address [address] [place] [address] Organization Unknown Address [address] [place] [address] Medications No known medications Problems No known problems
--- OUTSIDE RECORDS SUMMARY | 2024-10-20 14:16 | XMS_ITS | Clinical Summary ---
[facility] Organization [facility] Address [address] [place] [address] Care Team Providers Care Dock Coordinator Name Role Phone Sandi Andrade MD Primary Care Provider [phone] Allergies Active Allergy Reactions Criticality Noted Date [...] Dysphagia GERD (gastroesophageal reflux disease) Aspiration pneumonia ([facility] V24, [facility] V28) Chronic constipation Alcohol use disorder COPD (chronic obstructive pulmonary disease[facility] ([facility] V24, [facility] V28) Bipolar 1 disorder ([facility] V24, [facility] V28) Obesity SUNSHINE (obstructive sleep [...] 01/10/2022 Social Influencers of Health Screening 01/10/2022 Depression Screening 02/12/2024 COVID-19 Vaccine ( season) 2024 11/28/2022, 11/02/2021, 07/19/2021, Additional history exists Influenza [...] Group ID:ICO Type:Not on file Address: [address] [facility] [place] [address] Care Teams Dock Coordinator Relationship Specialty Start Date End Date Sandi Andrade MD [address] [facility] [place] [phone] PCP - General Internal Medicine 01/01/24
== END 2024-10-20 12:10 | disposition home or self-care (01) ==
LOC: HO.HOS 11:44
PROVIDERS: PCP Internal Medicine
DX: M65.312 Trigger thumb, left thumb (principal)
CPT/HCPCS: 99214

== ENCOUNTER → 2024-10-20 11:44 | Outpatient (BNVA) | payer OTHER, SELFPAY | PROVIDERS: PCP Internal Medicine | DX: M65.312 Trigger thumb, left thumb (principal) | CPT/HCPCS: 99212 ==

== ENCOUNTER 2024-11-17 07:57 | Outpatient (REF) | payer OTHER, SELFPAY ==
--- OUTSIDE RECORDS SUMMARY | 2024-11-17 08:03 | XMS_ITS | Clinical Summary ---
[facility] Address [address] [place] [address] Care Team Providers Care Box Office Agent Name Role Phone Sandi Andrade MD Primary Care Provider [phone] Allergies Active Allergy Reactions Criticality Noted Date [...] GERD (gastroesophageal reflux disease) Aspiration pneumonia ([facility] V24, [facility] V28) Chronic constipation Alcohol use disorder COPD (chronic obstructive pulmonary disease) ([facility] V24, [facility] V28) [facility]ipolar 1 disorder ([facility] V24, [facility] V28) Obesity SUNSHINE (obstructive sleep [...] Last Done Comments Breast Cancer Screening 1965 Colorectal Cancer Screening: Colonoscopy 1965 Cervical Cancer Screening: Pap Smear 11/05/1984 Pneumococcal Vaccine: 50+ Years (1 of 1 - PCV) 11/05/2013 HIV Screening 01/10/2022 Hepatitis C Screening 01/10/2022 [...] Group ID:ICO Type:Not on file Address: [address] [facility] [place] [address] Care Teams Box Office Agent Relationship Specialty Start Date End Date Sandi Andrade MD [address] [facility] [place] [phone] PCP - General Internal Medicine 01/01/24
[2024-11-17 10:22] LABS: MANUAL DIFF FLAG NO
[2024-11-17 10:28] LABS: Hematocrit 41.1 % (37.0-47.0); Hemoglobin 13.2 g/dl (12.0-16.0); Imm Gran Abs Auto 0.01 X10*3/uL (0.00-0.03); Imm Gran Pct Auto 0.1 % (0.0-0.4); Lymphocytes Absolute Auto 4.0 X10*3/uL (1.2-4.9); Mean Corpuscular HGB Conc 32.1 g/dl (31.0-35.0); Mean Corpuscular Hemoglobin 30.7 pg (27.0-33.0); Mean Corpuscular Volume 95.6 fL (80.0-98.0); NRBC Abs Auto 0.000 X10*3/uL (0.0-0.012); NRBC Pct Auto 0.0 /100WBC (0.0-0.2); Platelet Count 260 X10*3/uL (160-400); Red Blood Count 4.30 X10*6/uL (4.20-5.50); White Blood Count 7.8 X10*3/uL (4.8-10.8)
[2024-11-17 10:53] LABS: Alanine Aminotransferase 21 U/L (0-31); Albumin Level 4.3 g/dL (3.5-5.0); Alkaline Phosphatase 91 U/L (39-117); Anion Gap 12 (12-20); Aspartate Amino Transferase 29 U/L (5-31); Blood Urea Nitrogen 10 mg/dL (9-16); Calcium 9.8 mg/dL (8.4-10.2); Carbon Dioxide 30 mmol/L (22-29); Chloride 104 mmol/L (96-108); Cholesterol 126 mg/dL (<200); Estimated Glomerular Filt Rate > 60; HDL Cholesterol 44 mg/dL (>40); Potassium 4.1 mmol/L (3.3-5.1); Sodium 142 mmol/L (135-145); Total Protein 7.2 g/dL (6.5-8.0); Triglycerides 79 mg/dL (<150)
== END 2024-11-17 07:58 | disposition home or self-care (01) ==
LOC: HO.HMGCLDS 07:57
PROVIDERS: PCP Internal Medicine; Visit Provider Internal Medicine
DX: E53.8 Deficiency of other specified B group vitamins (principal); E78.5 Hyperlipidemia, unspecified; R73.9 Hyperglycemia, unspecified; E55.9 Vitamin D deficiency, unspecified
CPT/HCPCS: 36415; 80053; 80061; 82306; 84443; 85025

== ENCOUNTER 2024-11-18 11:16 | Outpatient (AMB) | payer OTHER, SELFPAY ==
--- NOTE | 2024-11-18 11:47 | A.OFFPC_ITS ---
Vital Signs 11/18/24 11:48 Height 5 ft 4 in Weight 163 lb BMI 28.0 BP 96/64 Blood Pressure Location Lt brachial Position Sitting Respiration 18 Pulse 77 Pulse Source Pulse Oximeter Temp 98.2 F Temp Source Oral Pulse Oximetry (%) 95 Oxygen Delivery Method Room Air Intake Visit Reasons: f/u with weight Intake Note: Pt is here today for a follow up visit weight. Allergies sumatriptan (From IMITREX) Allergy (Intermediate, Verified 11/18/24 11:48) RASH Medication List - Last Reconciled 11/18/24 by Sandi Andrade MD albuterol sulfate 90 mcg/actuation 2 puffs inhalation Q6H PRN albuterol sulfate 0.63 mg (3 mL) inhalation QID PRN alendronate (Fosamax) 70 mg PO QWEEK atorvastatin 10 mg PO QPM cholecalciferol (vitamin D3) 50 mcg PO DAILY clonazepam 1 mg PO BID diclofenac sodium 75 mg PO BID 10 days disposable gloves As directed-size medium fluticasone propionate 50 mcg/actuation 1 spray intranasal DAILY thoszdnigst-yqdycrwfw-ksvliqfy 200-62.5-25 mcg (Trelegy Ellipta) 1 inh inhalation DAILY gabapentin 400 mg PO BEDTIME incontinence pad, liner, disp As directed (4 pks per month) [Kneeling Scooter As directed] montelukast 10 mg PO DAILY naltrexone microspheres ER (Vivitrol) mg IM pantoprazole 40 mg PO BID Zepbound (tirzepatide (weight loss)) 5 mg (0.5 mL) subcut QWEEK NS Tobacco use date assessed: 11/18/24 Dental Screening Dental Screen Date: 05/28/24 HPI f/u with weight HPI Details Patient presents for the follow-up of obesity. She lost 50 lb on Zepbound. Patient has been decreasing caloric intake increasing physical activity until the medication well. She continues to take alendronate for osteoporosis. For COPD patient has not been using Trelegy regularly but reports intermittent cough and wheezing. She has been using supplemental O2 at night for nocturnal hypoxia and is established with pulmonology [facility] Medical History Weakness generalized Nocturnal hypoxemia Restrictive lung disease Musculoskeletal pain Anxiety and depression Ex-smoker Allergic rhinitis Cataract Vitamin B12 deficiency Vitamin D insufficiency GERD (gastroesophageal reflux disease) ETOH abuse Migraine SUNSHINE on CPAP COPD (chronic obstructive pulmonary disease) Surgical History History of esophagogastroduodenoscopy (EGD) H/O colonoscopy S/P PRINCESS (total abdominal hysterectomy) History of total hysterectomy Family History Father Alcoholic Mother Diabetes mellitus HTN (hypertension) Mental health disorder Brother Substance use disorder Mental health disorder Brother Substance use disorder Daughter Mental health disorder Brother Substance use disorder Social History Household Members: Spouse Housing: House Do you presently have visiting nurse or other home services: No Alcohol intake: former Comment: all counts correct Patient Tobacco Use Status: Former Tobacco user Tobacco use type: Cigarette e-Cigarette/Vaping Use: Never Used Second Hand Smoke Exposure: No Substance Use Type: Crack/Cocaine Advance Directives Date on File: 02/28/22 service: No Current occupational status: disabled 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 1. Little interest or pleasure in doing things: not at all 2. Feeling down, depressed, or hopeless: not at all 3. Trouble falling or staying asleep, or sleeping too much: nearly every day 4. Feeling tired or having little energy: nearly every day 5. Poor appetite or overeating: more than half the days 6. Feeling bad about yourself - or that you are a failure or have let yourself or your family down: not at all 7. Trouble concentrating on things, such as reading the newspaper or watching te levision: not at all 8. Moving or speaking so slowly that other people could have noticed. Or the opposite - being so fidgety or restless that you have been moving around a lot more than usual: not at all 9. Thoughts that you would be better off or of hurting yourself in some way: not at all Total score: 8 Depression Screening Interpretation: Negative Depression Screening Done: Yes Source: Developed by Drs. Marzena Pickens Kurt Kroenke and colleagues, with an educational gee from [employer]. Thrive Questionnaire Date Thrive assessed: 05/27/24 I am a: Patient What is your living situation today?: I have a steady place to live Within the past 12 months, did the food you bought not last and you didn't have the money to get more?: Sometimes True Within the past 12 months, did you worry whether your food would run out before you got money to buy more?: Sometimes True Do you have trouble paying for medicines?: No Do you have trouble getting transportation to medical appointments?: No Do you have trouble paying your heating and electricity bill?: No Do you have trouble taking care of your child, family member or friend?: No Do you have trouble with day-to-day activities such as bathing, preparing meals, shopping, managing finances, etc.?: Yes Are you currently unemployed and looking for a job?: Yes Are you interested in more education?: No Please select the resources that you would like help with: None Currently or been in a relationship where the following occur: No concerns reported THRIVE Score: 2 RICARDO-7 AMB Questionnaire RICARDO-7 Date RICARDO - 7 assessed: 05/28/24 Feeling nervous, anxious, or on edge: 0 = Not at all Not being able to stop or control worryin = Not at all Worrying too much about different things: 0 = Not at all Trouble relaxin = Not at all Being so restless that it is hard to sit still: 0 = Not at all Becoming easily annoyed or irritable: 0 = Not at all Feeling afraid as if something awful might happen: 0 = Not at all Total RICARDO-7 score (0-4 normal; 5-9 mild; 10-14 moderate; 15-21 severe): 0 Source: Developed by Drs. Angelo Oseguera, Marzena Parker, Tony Vick and colleagues, with an educational gee from [employer]. Review of Systems Const All systems reviewed & are unremarkable except as noted in HPI and below ENT Reports no additional complaints Card Reports no additional complaints Resp Reports no additional complaints GI Reports no additional complaints Reports no additional complaints Physical exam (Primary Care) Vital Signs: Last Vital Signs Temp 98.2 F 11/18/24 11:48 Pulse 77 11/18/24 11:48 Resp 18 11/18/24 11:48 BP 96/64 11/18/24 11:48 Pulse Ox 95 11/18/24 11:48 Oxygen Delivery Method Room Air 11/18/24 11:48 BMI result Body Mass Index 28.0 Tobacco/Smoking Status: Tobacco use Status Tobacco use date assessed 11/18/24 11/18/24 11:48 Patient Tobacco Use Status Former Tobacco user 11/18/24 11:48 Tobacco use type Cigarette 11/18/24 11:48 e-Cigarette/Vaping Use Never Used 11/18/24 11:48 PHQ-9: PHQ-9 Score PHQ-9: Total score 8 11/18/24 12:29 Depression Screening Interpretation: Negative Thrive Assessment: Date of Thrive Assessment Date Thrive assessed 05/27/24 11/18/24 11:48 Currently or been in a relationship where the following occur: No concerns reported Const General: no acute distress HENMT Head: Yes normal to inspection Neck Neck: Yes no lymphadenopathy and Yes supple Resp Effort & Inspection: normal respiratory effort Auscultation: rhonchi and diminished lung sounds Cardio Rhythm: regular rhythm Heart sounds: S1 normal heart sound present and S2 normal heart sound present GI Inspection: Yes normal to inspection Palpation (GI): Soft to palpation Percussion: Yes normal to percussion Coding Level of Care Code Est Pt Level 4 (68417) Diagnoses Osteoporosis M81.0 COPD (chronic obstructive pulmonary disease) J44.9 Obesity E66.9 Assessment & Plan Assessment & Plan (1) Osteoporosis: Comment: DEXA 05/04 T score -2.8 spine, Fosamax started 06/04 Code(s): M81.0 - Age-related osteoporosis without current pathological fracture Category: Medical Plan: Continue Fosamax and vitamin-D supplement (2) COPD (chronic obstructive pulmonary disease): Comment: PFT 09/2018, Mild obstructive Airways disorder . SPIROMETRY IN 2021 SHOWED ONLY MODERATE DEGREE OF RESTRICTIVE PULMONARY DISORDER. BUT SHE HAS BEEN USING ADVAIR WELL INCRUSE ELLIPTA REGULARLY. RECENTLY IT WAS CHANGED TO TRILOGY ELLIPTA 1 INHALA.TION DAILY SHE CLAIMS THAT SHE IS FEELING BETTER WITH THIS INHALER , STILL HAS MILD INTERMITTENT COUGH. Code(s): J44.9 - Chronic obstructive pulmonary disease, unspecified Category: Medical Plan: Start Trelegy 100 mcg daily (3) Obesity: Comment: BMI 28 11/2024 Code(s): E66.9 - Obesity, unspecified Category: Medical Plan: Increase Zepbound to 7.5 mg weekly follow-up in 3 months Medications: New Zepbound (tirzepatide (weight loss)) 7.5 mg (0.5 mL) subcut QWEEK 6 mL 1RF NS Trelegy Ellipta 100-62.5-25 mcg (zfitrrenbvm-ouneopzhp-xrfzawrk) 1 inh inhalation DAILY 60 ea 3RF NS Discontinued Zepbound (tirzepatide (weight loss)) Discontinued Reason: Doctor's Order 5 mg (0.5 mL) subcut QWEEK 6 mL 3RF NS
[2024-11-18 11:48] VITALS: BP 96/64; PULSE 77; RESP 18; TEMP 36.8; O2SAT 95; BMI 28.0
== END 2024-11-18 12:44 | disposition home or self-care (01) ==
LOC: HO.HMCC 11:17
PROVIDERS: PCP Internal Medicine; Visit Provider Internal Medicine
DX: M81.0 Age-related osteoporosis without current pathological fracture (principal); J44.9 Chronic obstructive pulmonary disease, unspecified; E66.9 Obesity, unspecified; Z68.28 Body mass index [BMI] 28.0-28.9, adult

== ENCOUNTER → 2024-11-18 11:16 | Outpatient (BNVA) | payer OTHER, SELFPAY | PROVIDERS: PCP Internal Medicine; Visit Provider Internal Medicine | DX: M81.0 Age-related osteoporosis without current pathological fracture (principal); E66.9 Obesity, unspecified; J44.9 Chronic obstructive pulmonary disease, unspecified; Z99.81 Dependence on supplemental oxygen; Z68.28 Body mass index [BMI] 28.0-28.9, adult | CPT/HCPCS: 96127; 99212 ==

== ENCOUNTER 2024-12-14 09:19 | Day surgery (SDC) | payer OTHER, SELFPAY ==
[2024-12-14 09:30] VITALS: BP 96/42; PULSE 83; RESP 18; TEMP 36.4; O2SAT 96; BMI 28.4
--- NOTE | 2024-12-14 10:02 | MHC.SHP ---
Pre-Procedural Eval Section A - 24 Hr Update-Section A only Date of Service: 12/14/24 The patient is an INPATIENT: No Changes since office visit: No Cold of Flu in the past 2 weeks, No New Medical Problems, No Changes in Medication and No Patient answered all questions The patient has been examined within 24 hours of the surgical procedure. The History & Physical has been completed within 30 days and I have reviewed it.: Yes Section B - Complete if H&P > 30 days Chief Complaint: Trigger thumb, left thumb Allergies: Allergies Allergy/AdvReac Type Severity Reaction Status Date / Time sumatriptan (From IMITREX) Allergy Intermediate RASH Verified 11/18/24 11:48 Plan Diagnosis/Plan: Unchanged I have reviewed the history and physical and performed a pertinent physical examination on my patient. No changes have occurred unless specified. Time Spent With Patient Time: Total time managing care of this patient today ____ minutes.
--- NOTE | 2024-12-14 10:03 | P.OP_ITS ---
Operative Note Operative Note Date of Service: 12/14/24 Narrative: Operative Note Preop diagnosis: 1. Left thumb Trigger finger Postop diagnosis: Same Procedure: 1. Left thumb A1 rae release Surgeon: Lin Patterson MD Envelope Addresser: None Anesthesia: local block using 1% lidocaine with epinephrine Findings: No locking or catching after A1 rae release EBL: Less than 5 mL Tourniquet time: None Specimens: None Complications: None Disposition: Brought to recovery room in stable condition Plan: Follow-up for 10-14 days for wound check and suture removal Indications: The patient is a 59 years old, with a left thumb trigger finger that has been unresponsive to nonoperative management. The risks and benefits of operative treatment including but not limited to risk of damage to blood vessels, nerves, tendons, infection, persistent pain, persistent symptoms, recurrence or possible need for additional surgery were discussed with the patient and the patient wishes to proceed with surgery. Procedure: Once consent was obtained a local block was performed in the preop area using a combination of 1% lidocaine with epinephrine. The patient was then brought back to the operating suite and placed on the operative table in supine position. The left upper extremity was prepped and draped in a standard surgical fashion. Once assured that we had a good block, a 1.5 cm oblique incision was made centered over the A1 rae of the left thumb . The incision was made through the skin to the subcutaneous tissues using a #15 blade. Careful dissection was made down to the level of the A1 rae using tenotomy scissors, with care being taken to protect the nearby neurovascular structures. A longitudinal incision was made in the A1 rae 1st using a #15 blade, then using tenotomy scissors under direct visualization. The A1 rae was noted to be thickened. Following our A1 rae release, we no longer saw any locking or catching of the digit with flexion and extension. Once satisfied with our A1 rae release the wound was copiously irrigated with normal saline and hemostasis was obtained with a brief period of local pressure. The skin edges were reapproximated with some 5.0 nylon suture material and a sterile dressing was applied. The patient appears to have tolerated the procedure well and with no complications. All digits were well vascularized at the conclusion of the case.
[2024-12-14 11:22] VITALS: BP 102/58; PULSE 75; RESP 16; O2SAT 97
== END 2024-12-14 11:42 | disposition home or self-care (01) ==
PROVIDERS: PCP Internal Medicine; Visit Provider Orthopaedic Surgery
PROC: (CPT 26055; principal; 2024-12-14 11:30)
DX: M65.312 Trigger thumb, left thumb (principal); F10.10 Alcohol abuse, uncomplicated; F41.8 Other specified anxiety disorders; E55.9 Vitamin D deficiency, unspecified; E53.8 Deficiency of other specified B group vitamins; K21.9 Gastro-esophageal reflux disease without esophagitis; J44.9 Chronic obstructive pulmonary disease, unspecified; J98.4 Other disorders of lung; G43.909 Migraine, unspecified, not intractable, without status migrainosus; M62.81 Muscle weakness (generalized); G47.33 Obstructive sleep apnea (adult) (pediatric); Z99.89 Dependence on other enabling machines and devices; Z88.8 Allergy status to other drugs, medicaments and biological substances; Z90.710 Acquired absence of both cervix and uterus; Z98.890 Other specified postprocedural states; Z87.891 Personal history of nicotine dependence
CPT/HCPCS: 26055; J0165; J2003

== ENCOUNTER → 2024-12-14 09:19 | Outpatient (BNV) | payer OTHER, SELFPAY | PROVIDERS: PCP Internal Medicine; Visit Provider Orthopaedic Surgery | DX: M65.312 Trigger thumb, left thumb (principal) | CPT/HCPCS: 26055 ==

== ENCOUNTER 2024-12-23 11:13 | Outpatient (AMB) | payer OTHER, SELFPAY ==
[2024-12-23 11:34] VITALS: BP 88/68; PULSE 87; O2SAT 94; BMI 27.8
--- NOTE | 2024-12-23 11:34 | MHC.OFFVIS ---
Vital Signs 12/23/24 11:34 Height 5 ft 4 in Weight 162 lb 0.636 oz BMI 27.8 BP 88/68 L Blood Pressure Location Lt brachial Position Sitting Pulse 87 Pulse Source Pulse Oximeter Pulse Oximetry (%) 94 Oxygen Delivery Method Room Air Intake Visit Reasons: COPD Intake Note: pt is here for follow up and states she is feeling good, using oxygen at night prn Director Talent Management Required: No Production Solderer: Production Solderer offered & declined Allergies sumatriptan (From IMITREX) Allergy (Intermediate, Verified 12/23/24 11:50) RASH Medication List - Last Reconciled 12/23/24 by Tremaine Murphy MD albuterol sulfate 90 mcg/actuation 2 puffs inhalation Q6H PRN albuterol sulfate 0.63 mg (3 mL) inhalation QID PRN alendronate (Fosamax) 70 mg PO QWEEK atorvastatin 10 mg PO QPM cholecalciferol (vitamin D3) 50 mcg PO DAILY clonazepam 1 mg PO BID diclofenac sodium 75 mg PO BID 10 days disposable gloves As directed-size medium gabapentin 400 mg PO BEDTIME incontinence pad, liner, disp As directed (4 pks per month) [Kneeling Scooter As directed] montelukast 10 mg PO DAILY naltrexone microspheres ER (Vivitrol) mg IM pantoprazole 40 mg PO BID Trelegy Ellipta 100-62.5-25 mcg (fmyrdjtrhyz-omnrnvjei-rxtdfrla) 1 inh inhalation DAILY NS Zepbound (tirzepatide (weight loss)) 7.5 mg (0.5 mL) subcut QWEEK NS Do you need a note to return to daycare/school/sports/work: No HPI HPI COPD: Details: ZORAN, 59 YEARS OLD FEMALE, IS HERE FOR PULMONARY FOLLOW-UP AFTER 4 MONTHS. PULMONARY BLACK SHE IS DOING WELL EXCEPT FOR OCCASIONAL WHEEZE AND COUGH FOR WHICH SHE USES ALBUTEROL INHALER OR THE NEBULIZER. SHE CONTINUES TO USE TRELEGY ELLIPTA ONCE A DAY. FOR ALLERGIES PREVENTION SHE IS ON MONTELUKAST 10 MG DAILY. SHE DOES HAVE HISTORY OF NOCTURNAL HYPOXEMIA AND HOPES THAT, WITH THE WEIGHT LOSS THIS SHOULD HAVE RESOLVED. SO SHE IS NOT USING OXYGEN REGULARLY EVERY NIGHT . I TOLD HER THAT WE CAN DO OVERNIGHT OXIMETRY RECORDING TO FIND OUT ABOUT HER OXYGEN LEVEL AT NIGHT. SHE SAID THAT SHE WILL WAIT UNTIL SHE GETS TO HER GOAL FOR OPTIMAL WEIGHT OPTIMAL WEIGHT AND THEN HAVE THE OVERNIGHT OXIMETRY. SHE IS ON ZEPBOUND THERAPY AND IS DOING VERY WELL WITH WEIGHT REDUCTION. SHE HAS LOST SIGNIFICANT WEIGHT SHE TENDS TO HAVE LOW BLOOD PRESSURE, BUT ASYMPTOMATIC. [facility] Medical History Weakness generalized Nocturnal hypoxemia Restrictive lung disease Musculoskeletal pain Anxiety and depression Ex-smoker Allergic rhinitis Cataract Vitamin B12 deficiency Vitamin D insufficiency GERD (gastroesophageal reflux disease) ETOH abuse Migraine SUNSHINE on CPAP COPD (chronic obstructive pulmonary disease) Surgical History History of esophagogastroduodenoscopy (EGD) H/O colonoscopy S/P PRINCESS (total abdominal hysterectomy) History of total hysterectomy Family History Father Alcoholic Mother Diabetes mellitus HTN (hypertension) Mental health disorder Brother Substance use disorder Mental health disorder Brother Substance use disorder Daughter Mental health disorder Brother Substance use disorder Social History Household Members: Spouse Housing: House Do you presently have visiting nurse or other home services: No Alcohol intake: former Comment: counts correct Patient Tobacco Use Status: Former Tobacco user Tobacco use type: Cigarette e-Cigarette/Vaping Use: Never Used Second Hand Smoke Exposure: No Substance Use Type: Crack/Cocaine Advance Directives Date on File: 02/28/22 service: No Current occupational status: disabled 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 Cognitive needs: No Hearing needs: No Vision needs: Yes Review of Systems Const All systems reviewed & are unremarkable except as noted in HPI and below Eyes Reports no additional complaints ENT Reports nasal congestion (mild off and on ) Card Reports chest pain, Denies irregular heart rhythm, Denies leg edema and Reports dyspnea on exertion Resp Reports cough (mild off and on .), Reports dyspnea on exertion and Denies wheezing GI Reports abdominal pain (non specific , being worked up ) Aller/Immun Denies wheezing Physical Exam Vital Signs: Last Vital Signs Pulse 87 12/23/24 11:34 BP 88/68 L 12/23/24 11:34 Pulse Ox 94 12/23/24 11:34 Oxygen Delivery Method Room Air 12/23/24 11:34 BMI result Body Mass Index 27.8 Const Other: Anxious and, slightly short of breath during conversation. General: no acute distress, alert and awake Orientation/consciousness: patient oriented x3 HEENT Head: Yes normal to inspection General nose exam: No nasal polyps present and No nasal discharge present Face and sinus: Yes sinuses nontender Mouth: oropharynx normal Throat: Yes posterior oropharynx normal Eyes General: appearance normal, both eyes and all related structures Neck Neck: Yes normal visual inspection, Yes no lymphadenopathy, Yes trachea midline and Yes no JVD Thyroid: Thyroid normal Chest Chest palpation & inspection: normal inspection of the chest, normal palpation of entire chest wall and no tenderness Resp Other: Percussion note is resonant, breath sounds are distant especially over the basilar areas. No Wheezes or crepitations are heard today. Cardio Palpation: normal PMI Rate: regular rate Rhythm: regular rhythm Heart sounds: no gallops and no murmurs Peripheral pulses: Peripheral pulses 2+ throughout GI Palpation (GI): Soft to palpation, nontender, No hepatosplenomegaly present and no masses Auscultation: normal bowel sounds Back/Spine/Pelvis Thoracic/Lumbar Spine: thoracic and lumbar spine normal to inspection and thoraco-lumbar ROM limited Skin General skin exam: no rashes or lesions noted Neuro General: patient oriented x3 and no focal motor deficits Cranial nerves: Yes CN's II-XII intact bilaterally Extrem General: Yes normal to inspection, Yes no clubbing, cyanosis or edema and Yes no calf tenderness Psych Speech and movement: Normal speech and movement present Affect: Anxious affect present Assessment & Plan Assessment & Plan (1) COPD (chronic obstructive pulmonary disease): Comment: PFT 09/2018, Mild obstructive Airways disorder . SPIROMETRY IN 2021 SHOWED ONLY MODERATE DEGREE OF RESTRICTIVE PULMONARY DISORDER. BUT SHE HAS BEEN USING ADVAIR WELL INCRUSE ELLIPTA REGULARLY. RECENTLY IT WAS CHANGED TO TRILOGY ELLIPTA 1 INHALA.TION DAILY SHE CLAIMS THAT SHE IS FEELING BETTER WITH THIS INHALER , STILL HAS MILD INTERMITTENT COUGH. Code(s): J44.9 - Chronic obstructive pulmonary disease, unspecified Category: Medical Plan: CONTINUE TO USE TRELEGY ELLIPTA 1 INHALATION DAILY ALBUTEROL HFA 2 PUFFS Q 6 HOURS PRN WHEN OUTDOORS AND ALTERNATIVELY MAY USE ALBUTEROL SOLUTION IN THE NEBULIZER Q 4 HOURS P.R.N. (2) Ex-smoker: Comment: She has not smoked for the last 2 YEAR and is determined not to go back to smoking. Does not use nicotine patches at present She does vape 2 to 3 times a day, because of stress. Code(s): Z87.891 - Personal history of nicotine dependence Category: Social Hx Plan: COMMENDED FOR NOT GOING BACK TO SMOKING. ADVISED THAT SHE SHOULD TRY TO GET OFF VAPING CIGARETTES. (3) Nocturnal hypoxemia: Comment: SHE HAS CHRONIC HYPOXEMIA HER RECENT OVERNIGHT OXIMETRY RECORDING DID CONFIRM PRESENCE OF NOCTURNAL HYPOXEMIA SHE IS NOT USING O2 REGULARLY Code(s): G47.34 - Idiopathic sleep related nonobstructive alveolar hypoventilation Category: Medical Plan: I DISCUSSED ABOUT DOING ANOTHER OVERNIGHT OXIMETRY RECORDING BUT SHE SAY SHE WOULD RATHER LOSE MORE WEIGHT TO GO TO HER GOAL AND THEN HAVE OVERNIGHT OXIMETRY RECORDING (4) Allergic rhinitis: Comment: SHE HAS THE ONGOING MODERATE DEGREE OF ALLERGIC RHINITIS. IT GOT WORSE AFTER SHE STOPPED MONTELUKAST AND NOW OK AGAIN. Code(s): J30.9 - Allergic rhinitis, unspecified Category: Medical Plan: NASAL ALLERGY UNDER GOOD CONTROL AND SHE IS NOT IN NEED OF TAKING MONTELUKAST ARE USING FLONASE. Coding Level of Care Code Est Pt Level 3 (12711) Diagnoses COPD (chronic obstructive pulmonary disease) J44.9 Ex-smoker Z87.891 Nocturnal hypoxemia G47.34 Allergic rhinitis J30.9
--- OUTSIDE RECORDS SUMMARY | 2024-12-23 13:53 | XMS_ITS | Clinical Summary ---
Author Organization [facility] Address [address] [place] [address] Care Team Providers Care Correctional Captain Name Role Phone Sandi Andrade MD Primary Care Provider [phone] Allergies Active Allergy Reactions Criticality Noted Date [...] Dysphagia GERD (gastroesophageal reflux disease) Aspiration pneumonia ([facility] V24, [facility] V28) Chronic constipation Alcohol use disorder COPD (chronic obstructive pulmonary disease) ([facility] V24, [facility] V28) Bipolar 1 disorder ([facility] V24, [facility] V28) Obesity SUNSHINE (obstructive sleep [...] Group ID:ICO Type:Not on file Address: [address] [facility] [place] [address] Care Teams Correctional Captain Relationship Specialty Start Date End Date Sandi Andrade MD [address] [facility] [place] [phone] PCP - General Internal Medicine 01/01/24
== END 2024-12-23 11:58 | disposition home or self-care (01) ==
LOC: HO.HPS 11:13
PROVIDERS: PCP Internal Medicine; Visit Provider Internal Medicine
DX: J44.9 Chronic obstructive pulmonary disease, unspecified (principal); Z87.891 Personal history of nicotine dependence; G47.34 Idiopathic sleep related nonobstructive alveolar hypoventilation; J30.9 Allergic rhinitis, unspecified
CPT/HCPCS: 99213

== ENCOUNTER → 2024-12-23 11:13 | Outpatient (BNVA) | payer OTHER, SELFPAY | PROVIDERS: PCP Internal Medicine; Visit Provider Internal Medicine | DX: J44.9 Chronic obstructive pulmonary disease, unspecified (principal); G47.34 Idiopathic sleep related nonobstructive alveolar hypoventilation; J30.9 Allergic rhinitis, unspecified; Z87.891 Personal history of nicotine dependence; Z99.81 Dependence on supplemental oxygen | CPT/HCPCS: 99212 ==

== ENCOUNTER 2024-12-29 10:39 | Outpatient (AMB) | payer OTHER, SELFPAY ==
--- NOTE | 2024-12-29 11:11 | MHC.OFFVIS ---
Vital Signs 12/29/24 11:17 Height 5 ft 4 in Weight 162 lb BMI 27.8 Intake Visit Reasons: PO-Lt Thumb Trigger 12/14/24 Intake Note: Annie 59 year old right hand dominant female who presents today for a Post-operative Visit status post Left Thumb Trigger Release performed by Dr. Patterson on 12/14/24. Patient reports she is doing well. She denies numbness, tingling, finger locking. She is not taking any pain medication at this time. Sutures removed in office and steri strips applied. Patient would like to discuss Right Carpal Tunnel Release. Allergies sumatriptan (From IMITREX) Allergy (Intermediate, Verified 12/29/24 11:17) RASH HPI HPI PO-Lt Thumb Trigger 12/14/24: Details: Annie 59 year old right hand dominant female who presents today for a S/P Left Thumb Trigger Release; DOS 12/14/24. She reports doing well. Denies any locking or catching since surgery. She reports having an issue with her wrist. Notes that she was suppose to have surgery in May for her carpal tunnel. Notes that she is having some pain. She notes that she is trying to go back to work but does not want to take more time off work. 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 Patient is complaining that the numbness and tingling in her right hand has become more problematic in his now intermittent but daily waking her up almost every night. She is interested again in talking about surgery for her right carpal tunnel symptoms. We had scheduled her back in November of 2023 for this surgery but she canceled at that time. She feels like the left hand does not particularly symptomatic with regards to numbness and tingling. [facility] Medical History Weakness generalized Nocturnal hypoxemia Restrictive lung disease Musculoskeletal pain Anxiety and depression Ex-smoker Allergic rhinitis Cataract Vitamin B12 deficiency Vitamin D insufficiency GERD (gastroesophageal reflux disease) ETOH abuse Migraine SUNSHINE on CPAP COPD (chronic obstructive pulmonary disease) Surgical History History of esophagogastroduodenoscopy (EGD) H/O colonoscopy S/P PRINCESS (total abdominal hysterectomy) History of total hysterectomy Family History Father Alcoholic Mother Diabetes mellitus HTN (hypertension) Mental health disorder Brother Substance use disorder Mental health disorder Brother Substance use disorder Daughter Mental health disorder Brother Substance use disorder Social History Household Members: Spouse Housing: House Do you presently have visiting nurse or other home services: No Alcohol intake: former Comment: counts correct Patient Tobacco Use Status: Former Tobacco user Tobacco use type: Cigarette e-Cigarette/Vaping Use: Never Used Second Hand Smoke Exposure: No Substance Use Type: Crack/Cocaine Advance Directives Date on File: 02/28/22 service: No Current occupational status: disabled Current occupation: [employer] worker /rt hand Cognitive needs: No Hearing needs: No Vision needs: Yes Review of Systems Const All systems reviewed & are unremarkable except as noted in HPI and below Physical Exam Vital Signs: BMI result Body Mass Index 27.8 Extrem Other: Patient is alert, oriented, and in no acute distress. With regards to the left hand: Her incision over the left thumb A1 rae is healing well with no erythema drainage or evidence of infection. Sutures removed and Steri-Strips applied. Good active flexion and extension of the left thumb with no locking or catching. Good flexion-extension of the fingers. With regards to the right hand: Bilateral EMG nerve conduction study: IMPRESSION: 1. This is an abnormal study. 2. There is electrodiagnostic evidence for bilateral moderate-severe median neuropathy at the wrist, consistent with carpal tunnel syndrome. 3. There is no electrodiagnostic evidence for ulnar neuropathy, brachial plexopathy, or cervical radiculopathy. Jerilyn Morelos MD, OSCAR 11/28/23 Assessment & Plan Assessment & Plan (1) Trigger thumb, left thumb: Code(s): M65.312 - Trigger thumb, left thumb Category: Medical Plan 1. Left Trigger thumb status post release DOS: 12/14/24 She appears to be doing well postoperatively. I educated her about the postoperative course. 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 Advised to avoid lifting anything heavier than a cell phone for 2 weeks and then make sure to work after. She can return to work in 2 weeks. 2. Right carpal tunnel syndrome, moderate to severe Symptoms intermittent but daily I educated her about this condition We discussed operative and non operative treatment options. She wishes to proceed with surgery. The risks and benefits of operative treatment were discussed with the patient and the patient wishes to proceed with surgery. These risks include, but are not limited to risk of damage to blood vessels, nerves, tendons, infection, recurrence, incomplete relief of preoperative symptoms, persistent pain, possible need for further surgery and the risks associated with regional blocks and anesthesia. The plan is to take the patient to the operating room not sooner than 4 weeks from now for the following procedures: 1. Right carpal tunnel release under local 2. [ ] All of the preoperative paperwork including the consent was filled out today. All the patient's questions were answered. The patient understands that they will be contacted by our director clinical data soon to schedule this procedure 3. Left carpal tunnel syndrome, moderate to severe Not particularly symptomatic at this time. Coding Level of Care Code Est Pt Level 4 (64855) Diagnoses Trigger thumb, left thumb M65.312
[2024-12-29 11:17] VITALS: BMI 27.8
== END 2024-12-29 11:58 | disposition home or self-care (01) ==
LOC: HO.HOS 10:40
PROVIDERS: PCP Internal Medicine; Visit Provider Orthopaedic Surgery
DX: G56.01 Carpal tunnel syndrome, right upper limb (principal); M65.312 Trigger thumb, left thumb
CPT/HCPCS: 99214

== ENCOUNTER → 2024-12-29 10:39 | Outpatient (BNVA) | payer OTHER, SELFPAY | PROVIDERS: PCP Internal Medicine; Visit Provider Orthopaedic Surgery | DX: M25.372 Other instability, left ankle (principal); M65.312 Trigger thumb, left thumb; Z87.81 Personal history of (healed) traumatic fracture; Z98.890 Other specified postprocedural states | CPT/HCPCS: 99202; 99212 ==

== ENCOUNTER 2024-12-29 14:02 | Outpatient (AMB) | payer OTHER, SELFPAY ==
--- NOTE | 2024-12-29 14:17 | A.OFFVIS_ITS ---
Vital Signs 12/29/24 14:18 Height 5 ft 4 in Weight 157 lb BMI 26.9 Intake Visit Reasons: 06/27/22 FC L 5th Metatarsal Fx/left foot pain Intake Note: Annie is a 59 year old female who presents today as a new patient for an evaluation of her 5th metatarsal fracture back from 2022. No recent imaging has been performed and she states she experiences instability in her ankle. She has not treated this recently. Allergies sumatriptan (From IMITREX) Allergy (Intermediate, Verified 12/29/24 11:17) RASH HPI HPI 06/27/22 FC L 5th Metatarsal Fx/left foot pain: Details: 59-year-old female with past medical history of hypertension, hyperlipidemia, COPD, GERD, osteoporosis, right knee arthritis, left shoulder surgery, carpal tunnel bilateral, presents for left ankle pain. She notes recurring ankle sprains and feelings of her ankle giving out. She has a history of left foot 5th metatarsal fracture in 2022 and then a right foot 5th metatarsal fracture in 2023. She is unsure if she injured her ankle at that time however she has had multiple ankle sprains since then, including multiple this year. Most recent ankle sprain was approximately 1-2 weeks ago. The patient notes some pain and swelling to her ankle when ambulating. Of note, she had recent left shoulder surgery, left hand surgery, and planned for carpal tunnel syndrome surgery in 5 weeks. [facility] Medical History Weakness generalized Nocturnal hypoxemia Restrictive lung disease Musculoskeletal pain Anxiety and depression Ex-smoker Allergic rhinitis Cataract Vitamin B12 deficiency Vitamin D insufficiency GERD (gastroesophageal reflux disease) ETOH abuse Migraine SUNSHINE on CPAP COPD (chronic obstructive pulmonary disease) Surgical History History of esophagogastroduodenoscopy (EGD) H/O colonoscopy S/P PRINCESS (total abdominal hysterectomy) History of total hysterectomy Family History Father Alcoholic Mother Diabetes mellitus HTN (hypertension) Mental health disorder Brother Substance use disorder Mental health disorder Brother Substance use disorder Daughter Mental health disorder Brother Substance use disorder Social History Household Members: Spouse Housing: House Do you presently have visiting nurse or other home services: No Alcohol intake: former Comment: counts correct Patient Tobacco Use Status: Former Tobacco user Tobacco use type: Cigarette e-Cigarette/Vaping Use: Never Used Second Hand Smoke Exposure: No Substance Use Type: Crack/Cocaine Advance Directives Date on File: 02/28/22 service: No Current occupational status: disabled 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 Neuro: Protective sensation grossly intact to bilateral lower extremities. Negative Tinel sign to the intermediate dorsal cutaneous nerve. Msk: Mild pain on palpation along the left lateral ankle ligaments Positive anterior drawer sign of the left ankle Positive talar tilt test of the left ankle Negative stress eversion of the left ankle Negative stress external rotation of the left ankle No pain on palpation of the 5th metatarsal base left and right foot. Deformities: No evidence of hammertoes, bunions, Charcot changes, or other structural abnormalities. Gait: Mild antalgic gait Results Reviewed Results Reviewed: Podiatry X-ray Read: 09/05/2022 X-ray left foot 3 views (AP, MO, Lateral) reviewed which shows healed 5th metatarsal base fracture. Severe 1st Metatarsal-phalangeal joint joint space narrowing. I personally reviewed the imaging and my findings are listed above. Podiatry X-ray Read: 08/20/2023 X-ray right foot 3 views (AP, MO, Lateral) reviewed which shows nearly healed 5th metatarsal shaft fracture. I personally reviewed the imaging and my findings are listed above. Assessment & Plan Assessment & Plan (1) Left ankle instability: Code(s): M25.372 - Other instability, left ankle Category: Medical Plan: * Referred for left ankle x-rays * Patient requires a left ankle MRI to evaluate for lateral ankle ligament tear. This MRI is required for possible surgical evaluation and planning. * Patient was dispensed a lace-up ankle brace. * A handout was dispensed for [id number] exercises * Discussed long-term treatment options which include ankle compression sleeve, custom bracing, and/or eventually lateral ankle ligament reconstruction. * Referred to physical therapy * Follow up in 1 month Orders: Orders XR ankle LT min 3V Today S93.402A - Sprain of unspecified ligament of left ankle, initial encounter PT Evaluation and Treatment Today M25.372 - Other instability, left ankle MR ankle LT wo con Today M25.372 - Other instability, left ankle, S93.409A - Sprain of unspecified ligament of unspecified ankle, initial encounter Coding Level of Care Code New Pt Level 4 (42944) Diagnoses Left ankle instability M25.372 Time Spent (min) 35
[2024-12-29 14:18] VITALS: BMI 26.9
--- OUTSIDE RECORDS SUMMARY | 2024-12-30 08:25 | XMS_ITS | Continuity of Care Document ---
Author Name [facility], Medical Address [address] [place] [address] Organization Unknown Address [address] [place] [address] Medications No known medications Problems No known problems
--- OUTSIDE RECORDS SUMMARY | 2024-12-30 08:25 | XMS_ITS | Clinical Summary ---
Author Organization [facility] Address [address] [place] [address] Care Team Providers Care Veterinary Technician Name Role Phone Sandi Andrade MD Primary Care Provider [phone] Allergies Active Allergy Reactions Criticality Noted Date [...] Dysphagia GERD (gastroesophageal reflux disease) Aspiration pneumonia ([facility] V24, [facility] V28) Chronic constipation Alcohol use disorder COPD (chronic obstructive pulmonary disease[facility] ([facility], [facility] V28) Bipolar 1 disorder ([facility] V24, [facility] V28) Obesity SUNSHINE (obstructive [...] Group ID:ICO Type:Not on file Address: [address] [facility] [place] [address] Care Teams Veterinary Technician Relationship Specialty Start Date End Date Sandi Andrade MD [address] [facility] [place] [phone] PCP - General Internal Medicine 01/01/24
--- OUTSIDE RECORDS SUMMARY | 2024-12-30 08:25 | XMS_ITS | Data Portability ---
Author Organization [facility], [facility] Address [address] [place] [address] Care Team Providers Care Firewall Security Engineer Name Role Phone HIM CCA OTHER TOM MARTINEZ Primary Care Provider Assessment Encounter Date Assessment Date Assessment LastModified by Organization Details LastModified Time 06/21/2022 06/21/2022 I have reviewed and agree with the assessment and plan as documented by the medical hospital sales. I provided real time medical direction for this encounter and was immediately available to provide additional phone based assistance as needed. History as noted by medical hospital sales. Pt reports that earlier today while walking [...] also need to follow up with a management trainee program stores/orthope dic electronic security specialist after the diagnosis is made and she can get a referral from the ED or urgent care. [email or web address] Not available 06/21/2022 16:50:16 06/12/2024 06/12/2024 I have reviewed and agree with the assessment and plan as documented by the medical hospital sales. I provided real-time medical direction for this encounter and was immediately available to provide additional phone-based assistance as needed. History as noted in EMR and by medical hospital sales. I would add / emphasize: Patient with [...] verbalizes understanding. [email or web address] Not available 06/12/2024 18:18:48 09/09/2024 09/09/2024 As noted, we arlet e called to see this patient regarding concerns of COVID infection with respiratory and gastrointestinal symptoms in a 58-year-old woman with underlying COPD, asthma, and bipolar disorder. The medical hospital sales performed the in-person evaluation and I provided remote direction. The patient was resting comfortably on the couch and in no acute distress. She reported several positive home COVID tests over the past few days, though an in-home rapid test today was negative. Her symptoms included a productive cough with yellow sputum, mild shortness of breath, pleuritic chest discomfort, nausea, and intermittent vomiting. She denied fever, chills, or diarrhea. She has been using Trelegy, albuterol inhaler and nebulizer, mucinex, and acetaminophen at home. On exam, she was afebrile, had stable vital signs, and clear breath sounds bilaterally. : Probable mild-moderate COVID infection with upper and lower respiratory symptoms and viral gastritis, in a patient with chronic lung disease. No current signs of pneumonia, hypoxia, or decompensation. COVID course appears manageable with home care at this time. : Reviewed use of home medications and confirmed appropriate Offered oral ondansetron and IV fluids, which patient declined Paxlovid discussed, but deferred today given improving symptoms and patient preference Reinforced hydration, nutrition, and rest Reviewed red flag symptoms and clear return precautions , follow-up in 1 3 days if symptoms worsen or linger, especially respiratory symptoms, given baseline COPD/asthma. We discussed the diagnostic uncertainty of home visits and the risks involved. In this case, the patient and I felt this to be an acceptable and reasonable amount of risk given the benefit of avoiding an ED visit. Red flags were reviewed, and the patient was advised to seek urgent care for worsening symptoms, persistent fever, chest pain, or other concerning changes. [email or web address] Not available 09/09/2024 13:10:42 Plan of Treatment Reminders Order Date Submit Date Provider Last Modified By Organization Details Last Modified Time Details Appointments None recorded. Lab rapid SARS CoV 2 Ag, QL IA, respiratory specimen 2024 025 [facility], [address] [place] [address], [address] [place] [address] 5 13:21:32 rapid flu (A+B) 2024 025 [facility], [address] [place] [address], [address] [place] [address] 5 13:21:17 rapid SARS CoV 2 Ag, QL IA, respiratory specimen [address], [address] [place] [address] 5 18:32:08 rapid flu (A+B) [address], [address] [place] [address] 5 18:32:29 SARS CoV 2 RNA (COVID-19), QL, electrical manufacturing engineer-PCR, respiratory specimen 2023 024 [email or web address] [facility] (Centralized Electronic Ordering - All Locations), Patient Can Go To The Location Of Their Choice, [id number] 4 11:53:13 rapid flu (A+B) [address], [address] 18:15:50 Referral None recorded. Procedures None recorded. Surgeries None recorded. Imaging None recorded. Medication Orders prednisone 10 mg tablet [address] [facility]/Pharmacy #[id number], [address] [facility], [place], [address], 5 17:19:28 azithromyci n 250 mg tablet [address] [facility]/Pharmacy #[id number], [address] [place], [address], 5 17:19:28 prednisone 10 mg tablet [address] [facility]armacy #[id number], [address] [facility], [place], [address], 4 17:07:19 Patient TargetsNo targets recorded. Patient [...] Name and Address Organization Details Recorded Time 45441 sumatript an medicatio n Not available Not available Not available 06/12/2024 60783 RxNorm Not Available [facility] - production 5 08:53:30 1751 Lamictal medicatio n Not available Not available Not available 02/22/2022 24349 2 RxNorm Not Available [facility] - production 5 08:53:30 1752 Imitrex medicatio n Not available Not available Not available 02/22/2022 64401 3 RxNorm Marta Self MD [address] [place] [address],[address], [place], [address] [place] [address] - [employer] 3 15:26:04 Medications Name Sig Start Date [...] Available N ot Available Vitals Date Recorded Oxygen saturation Oxygen saturation in Arterial blood by Pulse oximetry Heart rate Body weight Body temperature Respiratory rate Body height Systolic And Diastolic Provider Name and Address Organization Details Last Updated DateTime 5 97 % 97 % 69 /min 58434.4 4 g 98 [degF] 20 /min 162.56 cm 122/83 mm[Hg] Not Available [facility] - production 5 17:16:04 Date Recorded Respiratory rate Heart rate Oxygen saturation Oxygen saturation in Arterial blood by Pulse oximetry Body temperature Systolic And Diastolic Provider Name and Address Organization Details Last Updated DateTime 3 18 /min 94 /min 98 % 98 % 98.2 [degF] 136/79 mm[Hg] Not Available [facility] 3 15:27:16 Date Recorded Body weight Body height Respiratory rate Body temperature Heart rate Oxygen saturation Oxygen saturation in Arterial blood by Pulse oximetry Systolic And Diastolic Provider Name and Address Organization Details Last Updated DateTime 4 73315.4 4 g 162.56 cm 16 /min 97.3 [degF] 82 /min 100 % 100 % 115/78 mm[Hg] Not Available [facility] 4 16:55:55 Date Recorded Oxygen saturation Oxygen saturation in Arterial blood by Pulse oximetry Body weight Body temperature Respiratory rate Heart rate Body height Systolic And Diastolic Provider Name and Address Organization Details Last Updated DateTime 5 97 % 97 % 14561.8 24 g 97.7 [degF] 16 /min 83 /min 162.56 cm 103/53 mm[Hg] Not Available [facility] 5 09:25:37 Date Recorded Respiratory rate Oxygen saturation Oxygen saturation in Arterial blood by Pulse oximetry Inhaled oxygen flow rate Body temperature Heart rate Systolic And Diastolic Provider Name and Address Organization Details Last Updated DateTime 3 18 /min 92 % 92 % 2 L/min 98.6 [degF] 103 /min 130/82 mm[Hg] Not Available [facility] 3 10:56:19 Social History None recorded. Functional Status None recorded. Mental Status None recorded. Family History Nothing Reported. Medical History No medical history recorded. Gynecological HistoryNo gynecological history recorded. Obstetrics History GPAL:G 0 P 0 0 0 0 Past Encounters Encounter ID Performer Location Encounter Start Date Encounter Closed Date Diagnosis/Indication Diagnosis SNOMED-CT Code Diagnosis ICD10 Code Diagnosis IMO Codes Diagnosis Note [id number] Shivam Claudio MD Main - [facility] [phone] 02/15/2022 13:25:36 02/19/2022 09:21:06 Cough 78984195 R05.9 s/p COVID. Mild wheezing. O2 sats stable. Will give an additional neb and prescribe neb treatments . If symptoms persist, recommend visit for possible treatment of COPD exacerbati on [id number] Sihvam Claudio MD Main - [facility] [address] [place] [phone] 02/16/2022 14:19:43 02/19/2022 10:07:19 Acute exacerbation of chronic obstructive pulmonary disease 520962961 J44.1 Will treat empiricall y for COPD exacerbati on and add on an expectoran t [id number] Marta Self MD Main - [facility] [address] [place] [id number] 02/22/2022 15:25:37 02/27/2022 11:10:24 Acute exacerbation of chronic obstructive pulmonary disease 571394860 J44.1 with possible pneumonia- patient would benefit [...] q 6 prn/Keep appt with pulmonolog ist es 02/27/22- advised to touch base w. pcp tomorrow- knows our number can call for repeat [facility] visit if she feels she needs it. Red flags reviewed as above [id number] Bj Mcqueen MD Main - [facility] [address] [place] [phone] 03/19/2022 17:58:31 03/21/2022 09:18:52 Pain of nose 119037369 J34.89 [id number] Rinku Houser MD Main - [facility] [address] [place] [phone] 06/21/2022 15:27:15 06/22/2022 14:48:09 Fracture of foot 62683791 S92.902A [id number] Elda Jose MD Main - [facility] [address] [place] [phone] 11/12/2022 10:56:13 11/12/2022 22:59:10 Upper respiratory infection 54518080 J06.9 URI sx starting on Saturday. SpO2 [...] Reviewed warning s/sx with pt. Pt and medical hospital sales agree with plan. [id number] Deacon Easley MD Main - [facility] [address] [place] [phone] 08/21/2023 16:55:50 08/21/2023 19:47:16 Acute exacerbation of chronic obstructive pulmonary disease 561873692 J44.1 This 57-year-ol d female with COPD has has a cry cough and wheezing for three days with a low grade fever. I ordered a Prednisone taper and recommende d Mucinex or Robitussin . She will continue using her usual inhalers and follow-up with her PCP. The patient agreed with this plan. [id number] Champ Rosario MD Main - [facility] [address] [place] [id number] 06/12/2024 17:15:57 06/12/2024 19:59:23 Acute exacerbation of chronic obstructive pulmonary disease 281017952 J44.1 [id number] Ángel Ling MD Main-[facility] [address] [phone] 09/09/2024 09:25:32 09/09/2024 18:27:10 COVID-19 447932508 U07.2 [id number] Health Concerns Section Related Observation LastModified by Organization Detai ls LastModified Time None Recorded Concern Status LastModified by Organization Details LastModified Time None Recorded Advance Directives Directive None Recorded Payers Insurance Date Sequence Insurance Name Policy Number Policy Prather Covered Member ID Prather Member ID Guarantor Name 11/12/2022 1 [facility] - DOS PRIOR TO 2022 - DUAL ELIGIBLE (MEDICARE REPLACEMENT/ADV ANTAGE - HMO) Annie Batesmarthajeremiah [id number] Annie Triana Pasha 09/09/2024 1 [facility] - DOS ON OR AFTER 2022 - DUAL ELIGIBLE - [employer] OPTIONS AND ONE CARE (MEDICARE REPLACEMENT/ADV ANTAGE - HMO) Annie Batesmarthajeremiah [id number] Annie Triana Pasha Notes Date Note Type Note Provider Name and Address Organization Details Recorded Time 06/21/2022 text/html ROS as noted in the HPI This was a supervised home visit with medical hospital sales Suzanne Morelos. [facility] Nursing Assessment: Reason For Request: Pt states [...] and would [facility] .................... .................... .................... .................... .................... .................... .................... . Sow Farm Manager Note From Suzanne Morelos: Dispatched Urgent to [...] States she has taken APAP prior to [facility] arrival. Patient rested and iced extremity prior to our arrival. Patient noted to have swelling and bruising to the lateral aspect of the left dorsal foot with the contusion noted to be roughly [id number]. Pedal pulses present. Pt reports secondary complaint of left knee pain due to the position she landed in. Pt denies head, neck, or back pain. Pt denies LOC. Vitals as noted. Pt denies any additional complaints at this time. No other gross or obvious signs of trauma noted. [facility] consulted and recommends Pt be evaluated at an Urgent Care for X-Rays R/O Fx. Pt states the local Urgent Care closes soon and she would need to go to local ED. Transport via local EMS offered to Pt. Pt states she will drive herself to local ED AMA. Completed by Ta Aguilera MA [id number] .................... .................... .................... .................... .................... .................... .................... . Disposition: Cristine Houser MD [address] [facility],[address], [place], [address], [place] - [employer] 06/21/2022 16:50:32 11/12/2022 text/html [facility] Nursing Assessment: Reason For Request: URI Chief [...] COVID test negative. Member c/o rib pain .................... .................... .................... .................... .................... .................... .................... . Sow Farm Manager Note From Artis Kate: Dispatched to the [...] +CMSx4, lung sounds clear and equal bilaterally. C consulted. Pt advised to treat symptoms with OTC medications as needed, rest and stay hydrated. Red flags discussed. ALL times are approx. .................... .................... .................... .................... .................... .................... .................... . Disposition: Cristine Jose MD [address] [facility],[address], [place], [address], [employer] 11/12/2022 16:08:23 08/21/2023 text/html ROS as noted in the HPI CRC Nurse Triage Notes (Tara Cramer): Reason For Request: Pt reporting severe cough>chills>nausea> temperature that has been on/off>headache>stat es yesterdays covid test was negative>some sob due to cough, nose is stuffy Chief Complaints: Cough, Fever/Chills PMH: COPD/Asthma, Hypertension Comments: Client Service Professional verified the member's name//address and phone number. [...] s/s and seek emergency treatment if needed Sow Farm Manager POC Test Results from Leon Ramirez - ESTELA Rapid COVID antigen (17:31:46) COVID: - Rapid influenza antigen (17:31:48) Flu: - .................... .................... .................... .................... .................... .................... .................... . Sow Farm Manager Note From Leon Ramirez: [facility] visit for female patient with cough fever [...] recently discontinued from incruse inhaler. Consulted with [facility] Dr. Easley who ordered 60 mg of oral prednisone given on scene. Pt instructed to refill inhaler and medicinal plant picker some OTC mucinex as well. Reviewed red flags for ED. Patient education provided. .................... .................... .................... .................... .................... .................... .................... . Disposition: Fulfilled Deacon Easley MD [address] [facility],[address], [place], [address], [employer] CLEM GOLDBERG 08/21/2023 17:32:43 06/12/2024 text/html CRC Nurse Triage [...] is negative.She has body aches , no PACHCEO. She does have mild sob with some exp wheeze, not audible on the phone. She has been using her recuse inhaler. 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 She has been taking OTC cough, with changeI provided information on the mobile health provider response time and advised the patient and/or caregiver to monitor reported signs and symptoms. I discussed the warning signs of when to seek emergency care. Sow Farm Manager Organization Information for Bessy Espinal Legal Name[facility] [address] [facility], [place] [address], Medical Director: Gregg Peck [facility] No.: [id number] Sow Farm Manager POC Test Results from Bessy Espinal Rapid COVID antigen (13:55:03)COVID: -Attachments uploaded as part of this test result can be found under Documents section. Rapid influenza antigen (13:55:03)Flu: -Attachments uploaded as part of this test result can be found under Documents section. .................... .................... .................... .................... .................... .................... .................... . Sow Farm Manager Note From Bessy Espinal: [place] 3 dispatched to above address for 58yof [...] at home Covid/flu test, negative for both. [facility] called for orders for azithromycin and prednisone. Orders confirmed, 500mg PO azithromycin, 40mg PO prednisone. Pt able to take all PO medications without incident. Pt advised that should her symptoms continue to worsen and she begins to exhibit r ed flag symptoms, she should seek immediate hospital care. [facility] 3 clear without incident. .................... .................... .................... .................... .................... .................... .................... . [facility] Consulted: Champ Rosario .................... .................... .................... .................... .................... .................... .................... . Disposition: Fulfilled Champ Rosario MD [address] [facility],[address], [place], [address], [employer] 06/12/2024 18:18:57 09/09/2024 text/html CRC Nurse Triage Notes (Nadia Cerrato): Reason For Request: Patient thinks she has covid, and covid symtpoms, wants checked out.Denies: Increased work of breathing/labored with or without fever Unable to speak in full sentences without distress Discoloration of skin -cyanosis Needs to sleep sitting up, can t catch breath Shortness of breath in setting of confusion Chief Complaints: Common ColdPMH: Chronic Obstructive Pulmonary Disease (COPD), Asthma, Hyperlipidemia, Bipolar DisorderPMH Reviewed at 09/09/2024 - 08:30Allergies Reviewed at 09/09/2024 - :30Comments: 58 y.o female complains of Common Cold Patient who took a home test and was +covid.Patient reports a productive cough with yellow phlegm.Occasional shortness of breath and pleuritic chest pain, patient is no acute distress over the phones, is speaking in full, clear and complete sentences, no audible breath sounds.Reports nausea and vomiting, poor appetite, denies diarrhea, +headacheNo fever/chills.Wear o2 at HS, has been using her trelegy and albuter, taking mucinex and tylenol.She would like to be evaluated. I provided information on the mobile health provider response time and advised the patient and/or caregiver to monitor reported signs and symptoms. I discussed the warning signs of when to seek emergency care. Sow Farm Manager Organization Information for Karlos Alamo Legal Name: [facility] Transportation Address: [address] [place] [address], [place] [address], Emg Technician: Gregg Peck MD [facility] No.: [id number] Sow Farm Manager POC Test Results from Karlos Alamo Rapid COVID antigen (10:36:29) COVID: - .................... .................... .................... .................... .................... .................... .................... . Sow Farm Manager Note From Karlos Alamo: [facility] visit for female pt who tested positive [...] been taking albuterol inhaler and nebs, trilegy, mucinex and tylenol. V/S taken as listed. Pt afebrile. Lung sounds clear bilaterally. COVID swab performed in home was negative however pt had 2 previous home tests showing positive that were observed to still be in date and not . Consulted with [facility] Dr. Ling who spoke with pt about possibility of paxlovid and offered supportive measures like oral zofran and IV fluids which pt declined. Reviewed red flags for ED. Pt education on supportive care provided. Report completed by Leon Ramirez EMT-P [facility] Lab Orders: rapid SARS CoV 2 Ag, QL IA, respiratory specimen: Performed rapid flu (A+B): Performed .................... .................... .................... .................... .................... .................... .................... . [facility] Consulted: Jack Ling .................... .................... .................... .................... .................... .................... .................... . Disposition: Fulfilled Ángel Ling MD [address] [facility],[address], [place], [address], [employer] - [employer] Wanwei 09/09/2024 13:10:57 OBGyn Episode No OBEpisode recorded.
--- OUTSIDE RECORDS SUMMARY | 2024-12-30 08:26 | XMS_ITS | Encounter Summary ---
Author Organization [facility] Address [address] [place] [address] Encounters * CPT with Medical [facility] at [facility] on 2024-09-09 { reasonForRequest : Patient thinks [...] of when to seek emergency care. } [facility] for [facility] pt who tested positive [...] be in dateand not . Consulted with [facility] Dr. Ling who spoke with pt about possibility of paxlovid and offered supportive measures like oral zofran and IV fluids which pt declined. Reviewed red flags for ED. Pt education on supportive care provided. Report completed by Leon Ramirez EMT-P IV_(FLUIDS_AND/OR_MEDICATION), MEDICATION_IM, POC_BLOODWORK Written by Medical [facility] on 2024-09-09
== END 2024-12-29 14:39 | disposition home or self-care (01) ==
LOC: HO.HPODS 14:03
PROVIDERS: PCP Internal Medicine; Visit Provider Student in an Organized Health Care Education/Training Program
DX: M25.372 Other instability, left ankle (principal)
CPT/HCPCS: 99204

== ENCOUNTER 2024-12-30 11:33 | Outpatient (REF) | payer OTHER, SELFPAY ==
--- NOTE | ~2024-12-30 | XR_ITS ---
EXAMINATION: XR ANKLE, LEFT CLINICAL INFORMATION: S93.402A - Sprain of unspecified ligament of left ankle, initial encounter COMPARISON: X-ray 06/21/2022 TECHNIQUE: AP, lateral, and mortise views of the left ankle. FINDINGS: No visible acute fracture or dislocation. Subtle patchy lucencies in the medial malleolus could reflect mild degenerative changes. Ankle mortise is congruent. No talar dome OCD. Subtalar articulations are maintained. No erosions. No abnormal soft tissue calcification. Small plantar calcaneal spur. XR/XR ankle LT min 3V IMPRESSION: No acute findings seen. Question mild degenerative changes in the medial malleolus. Electronically signed by: Victor Manuel Grimaldo MD 12/30/2024 12:23 PM HANG
--- OUTSIDE RECORDS SUMMARY | 2024-12-30 22:41 | XMS_ITS | Continuity of Care Document ---
Author Name [facility], Medical Address [address] [place] [address] Organization Unknown Address [address] [place] [address] Medications No known medications Problems No known problems
--- OUTSIDE RECORDS SUMMARY | 2024-12-30 22:41 | XMS_ITS | Encounter Summary ---
Author Organization [facility] Address [address] [place] [address] Encounters * CPT with Medical [facility] at [facility] on 2024-09-09 { reasonForRequest : Patient thinks [...] } [facility] for [facility] pt who tested positive [...] be in dateand not . Consulted with [facility] Dr. Ling who spoke with pt about possibility of paxlovid and offered supportive measures like oral zofran and IV fluids which pt declined. Reviewed red flags for ED. Pt education on supportive care provided. Report completed by Leon Ramirez EMT-P IV_(FLUIDS_AND/OR_MEDICATION), MEDICATION_IM, POC_BLOODWORK Written by Medical [facility] on 2024-09-09
== END 2024-12-30 11:34 | disposition home or self-care (01) ==
LOC: HO.HMGCX 11:33
PROVIDERS: PCP Internal Medicine; Visit Provider Student in an Organized Health Care Education/Training Program
DX: S93.402A Sprain of unspecified ligament of left ankle, initial encounter (principal)
CPT/HCPCS: 73610

== ENCOUNTER → 2024-12-30 11:42 | Outpatient (BNV) | payer OTHER, SELFPAY | PROVIDERS: PCP Internal Medicine; Visit Provider Radiology Diagnostic Ultrasound | DX: S93.402A Sprain of unspecified ligament of left ankle, initial encounter (principal) | CPT/HCPCS: 73610 ==

== ENCOUNTER 2025-01-14 08:46 | Day surgery (SDC) | payer OTHER, SELFPAY ==
--- OUTSIDE RECORDS SUMMARY | 2024-12-30 23:22 | XMS_ITS | Continuity of Care Document ---
Author Name [facility], Medical Address [address] [place] [address] Organization Unknown Address [address] [place] [address] Medications No known medications Problems No known problems
--- OUTSIDE RECORDS SUMMARY | 2024-12-30 23:22 | XMS_ITS | Encounter Summary ---
Author Organization [facility] Includes [facility] Address [address] [place] [address] Encounters * CPT with Medical [facility] at [facility] on 2024-09-09 { reasonForRequest : Patient thinks [...] of when to seek emergency care. } [facility] pt who tested [facility] [...] be in dateand not . [facility] Ling who spoke with pt about possibility of paxlovid and offered supportive measures like oral zofran and IV fluids which pt declined. Reviewed red flags for ED. Pt education on supportive care provided. Report completed by Leon Ramirez EMT-P IV_(FLUIDS_AND/OR_MEDICATION), MEDICATION_IM, POC_BLOODWORK Written by Medical [facility] on 2024-09-09
[2025-01-14 10:13] VITALS: BP 107/49; PULSE 66; RESP 16; TEMP 35.6; O2SAT 97; BMI 27.5
--- NOTE | 2025-01-14 10:27 | MHC.SHP ---
Pre-Procedural Eval Section A - 24 Hr Update-Section A only Date of Service: 01/14/25 The patient is an INPATIENT: No Changes since office visit: No Cold of Flu in the past 2 weeks, No New Medical Problems, No Changes in Medication and No Patient answered all questions The patient has been examined within 24 hours of the surgical procedure. The History & Physical has been completed within 30 days and I have reviewed it.: Yes Section B - Complete if H&P > 30 days Chief Complaint: Carpal tunnel syndrome, right upper limb Allergies: Allergies Allergy/AdvReac Type Severity Reaction Status Date / Time sumatriptan (From IMITREX) Allergy Intermediate RASH Verified 12/29/24 11:17 Plan Diagnosis/Plan: Unchanged I have reviewed the history and physical and performed a pertinent physical examination on my patient. No changes have occurred unless specified. Time Spent With Patient Time: Total time managing care of this patient today ____ minutes.
--- NOTE | 2025-01-14 10:28 | W.PM.OPN ---
Operative Note Operative Note Date of Service: 01/14/25 Narrative: Preop diagnosis: 1. Right Carpal tunnel syndrome Postop diagnosis: same Procedure: 1. Right Carpal tunnel release Surgeon: Lin Patterson MD Track Moving Machine Operator: Leon WAY Anesthesia: local block using 1% lidocaine with epinephrine Findings: Thickened transverse carpal ligament. EBL: Less than 5 mL Specimens: None Complications: None Disposition: Brought to recovery room in stable condition Plan: Follow-up for 10-14 days for wound check and suture removal Indications: The patient is 59 years old, with right carpal tunnel syndrome that has been unresponsive to nonoperative management. The risks and benefits of operative treatment including but not limited to risk of damage to blood vessels, nerves, tendons, infection, persistent pain, persistent symptoms, or possible need for additional surgery were discussed with the patient and the patient wishes to proceed with surgery. Procedure: Once consent was obtained a local block was performed using a combination of 1% lidocaine with epinephrine. The patient was then brought back to the operating suite and placed on the operative table in supine position. The right upper extremity was prepped and draped in a standard surgical fashion. Once assured that we had a good block, a 2.0 cm longitudinal incision was made centered over the carpal tunnel. The incision was made through the skin to the subcutaneous tissues using a #15 blade. Dissection was made down to the level of the transverse carpal ligament with care being taken to protect the palmar cutaneous nerve. Once the transverse carpal ligament was clearly visualized, a longitudinal incision was made in the transverse carpal ligament 1st using a #15 blade, then using tenotomy scissors under direct visualization. Care was taken to look for and protect the motor branch of the median nerve when seen in this area. Once satisfied with our carpal tunnel release the wound was copiously irrigated with normal saline and hemostasis was obtained with a brief period of local pressure. The skin edges were reapproximated with some 5.0 nylon suture material and a sterile dressing was applied. The patient appears to have tolerated the procedure well and with no complications. All digits were well vascularized at the conclusion of the case.
[2025-01-14 12:00] VITALS: BP 108/59; PULSE 66; RESP 18; O2SAT 99
== END 2025-01-14 12:05 | disposition home or self-care (01) ==
PROVIDERS: PCP Internal Medicine; Visit Provider Orthopaedic Surgery
PROC: (CPT 64721; principal; 2025-01-14 11:50)
DX: G56.01 Carpal tunnel syndrome, right upper limb (principal); M25.531 Pain in right wrist; R20.2 Paresthesia of skin; R20.0 Anesthesia of skin; E55.9 Vitamin D deficiency, unspecified; K21.9 Gastro-esophageal reflux disease without esophagitis; J44.9 Chronic obstructive pulmonary disease, unspecified; J98.4 Other disorders of lung; G47.33 Obstructive sleep apnea (adult) (pediatric); G47.36 Sleep related hypoventilation in conditions classified elsewhere; F41.9 Anxiety disorder, unspecified; F10.10 Alcohol abuse, uncomplicated; F14.90 Cocaine use, unspecified, uncomplicated; Z99.89 Dependence on other enabling machines and devices; Z88.8 Allergy status to other drugs, medicaments and biological substances; Z98.890 Other specified postprocedural states; Z90.710 Acquired absence of both cervix and uterus; Z87.891 Personal history of nicotine dependence
CPT/HCPCS: 64721; J0165; J2003; J2004

== ENCOUNTER → 2025-01-14 08:46 | Outpatient (BNV) | payer OTHER, SELFPAY | PROVIDERS: PCP Internal Medicine; Visit Provider Orthopaedic Surgery | DX: G56.01 Carpal tunnel syndrome, right upper limb (principal) | CPT/HCPCS: 64721 ==

== ENCOUNTER 2025-01-27 12:47 | Outpatient (AMB) | payer OTHER, SELFPAY ==
--- NOTE | 2025-01-27 13:12 | A.OFFVIS_ITS ---
Vital Signs 01/27/25 13:13 Height 5 ft 4 in Weight 160 lb BMI 27.5 Intake Visit Reasons: PO RT CTR 01/11/25 AR Intake Note: Annie 59 yr old right hand dominant female presents today for her P/O visit for her right hand CTR done with Dr Patterson on 01/12/25. Today sutures were removed and steri strips have been placed. States her sypmtoms have subsided. Allergies sumatriptan (From IMITREX) Allergy (Intermediate, Verified 12/29/24 11:17) RASH HPI HPI PO RT CTR 01/11/25 AR: Details: Annie 59 year old right hand dominant female who presents today for a S/P right carpal tunnel Release; DOS 01/11/25 She says she is doing well and her sensation has improved and is now normal. She is happy with the results of her surgery. 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 [employer] Medical History Weakness generalized Nocturnal hypoxemia Restrictive lung disease Musculoskeletal pain Anxiety and depression Ex-smoker Allergic rhinitis Cataract Vitamin B12 deficiency Vitamin D insufficiency GERD (gastroesophageal reflux disease) ETOH abuse Migraine SUNSHINE on CPAP COPD (chronic obstructive pulmonary disease) Surgical History History of esophagogastroduodenoscopy (EGD) H/O colonoscopy S/P PRINCESS (total abdominal hysterectomy) History of total hysterectomy Family History Father Alcoholic Mother Diabetes mellitus HTN (hypertension) Mental health disorder Brother Substance use disorder Mental health disorder Brother Substance use disorder Daughter Mental health disorder Brother Substance use disorder Social History Household Members: Spouse Housing: House Do you presently have visiting nurse or other home services: No Alcohol intake: former Comment: counts correct Patient Tobacco Use Status: Former Tobacco user Tobacco use type: Cigarette e-Cigarette/Vaping Use: Never Used Second Hand Smoke Exposure: No Substance Use Type: Crack/Cocaine Advance Directives Date on File: 02/28/22 service: No Current occupational status: disabled Current occupation: [employer] worker /rt hand Cognitive needs: No Hearing needs: No Vision needs: Yes Review of Systems Const All systems reviewed & are unremarkable except as noted in HPI and below Physical Exam Vital Signs: BMI result Body Mass Index 27.5 Const General: no acute distress and alert Orientation/consciousness: patient oriented x3 Neuro General: patient oriented x3 Extrem Other: The patient was alert oriented and in no acute distress The incision is healing well with no erythema drainage or evidence of infection. Sutures removed and Steri-Strips applied She can make a fist and extend all his digits Sensation is intact Cap refill is brisk Bilateral EMG nerve conduction study: IMPRESSION: 1. This is an abnormal study. 2. There is electrodiagnostic evidence for bilateral moderate-severe median neuropathy at the wrist, consistent with carpal tunnel syndrome. 3. There is no electrodiagnostic evidence for ulnar neuropathy, brachial plexopathy, or cervical radiculopathy. Jerilyn Morelos MD, OSCAR 11/28/23 Psych Appearance: grossly normal Affect: normal affect Attitude: cooperative Assessment & Plan Assessment & Plan (1) Carpal tunnel syndrome of right wrist: Code(s): G56.01 - Carpal tunnel syndrome, right upper limb Category: Medical Plan Assessment & Plan: 1. Right carpal tunnel syndrome, S/P release DOS: 01/11/25 Pre-operative symptoms intermittent but daily Now with normal sensation The patient appears to be doing well post-operatively I educated her about the post-operative course I explained the signs and symptoms of infection, if the patient develops any new or worsening erythema, drainage, pain, or warmth they should contact the clinic or attend the ED. I discussed activity modifications, she is to lift nothing heavier than a cellphone for the next 2 weeks. They should also avoid any heavy impact activities, falls, or sports activities for the next 2 weeks She will perform gentle ROM exercises at home She should avoid any underwater activities for the next 5 days She should gently massage about the incision site to reduce the risk of hypersensitivity She can follow up prn 2. Left Trigger thumb, S/P release DOS: 12/14/24 3. Left carpal tunnel syndrome, moderate to severe Not particularly symptomatic at this time. Scribed for Lin Patterson MD by Esvin Wang, esthetician and manager medical spa, on 01/27/25 at 1:20 PM, EST. Coding Level of Care Code Global (88041) Diagnoses Carpal tunnel syndrome of right wrist G56.01
[2025-01-27 13:13] VITALS: BMI 27.5
--- OUTSIDE RECORDS SUMMARY | 2025-01-27 16:55 | XMS_ITS | Clinical Summary ---
Author Organization [facility] Address [address] [place] [address] Care Team Providers Care Park Activities Coordinator Name Role Phone Sandi Andrade MD Primary Care Provider [phone] Allergies Active Allergy Reactions Criticality Noted Date [...] Dysphagia GERD (gastroesophageal reflux disease) Aspiration pneumonia ([facility] V24, [facility] V28) Chronic constipation Alcohol use disorder COPD (chronic obstructive pulmonary disease) ([facility], [facility] V28) Bipolar 1 disorder ([facility] V24, [facility] V28) Obesity SUNSHINE (obstructive [...] file Not on file Not on file Last Filed Vital Signs Vital Sign Reading Time Taken Comments Blood Pressure - - Pulse - - Temperature - - Respiratory Rate - - Oxygen Saturation - - Inhaled Oxygen Concentration - - Weight 94.8 kg (209 lb) 02/21/2024 1:49 PM EST Height 162.6 cm (5' 4 ) 02/21/2024 1:49 PM EST Body Mass Index 35.87 02/21/2024 1:49 PM EST Plan of Treatment Upcoming Encounters Date Type Department Care Team ([facility] st Contact Info) Description 09/24/2025 9:40 AM EDT Office Visit Gastroenterology - [address] [id number] Betty Phoenix NP [address] [address] Health Maintenance Due Date Last Done Comments Breast Cancer Screening 1965 Colorectal Cancer Screening: Colonoscopy 1965 Drug Screen 1965 Non-Opioid Controlled Substance Agreement 1965 Cervical Cancer Screening: Pap Smear 11/05/1984 [...] patient's age to complete this topic Insurance RACHEL GOLDMAN [id number] [facility] MEDICARE Member Subscriber Plan / Payer (Ef fective 2016-Present) Name:ZORAN PAK Relation to Subscriber:Self Name:Zoran Pak Payer ID:[id number] Group ID:[id number] Type:Not on file Address: [address] [place] [address] Care Teams Park Activities Coordinator Relationship Specialty Start Date End Date Sandi Andrade MD [address] [place] [phone] PCP - General Internal Medicine 01/01/24
== END 2025-01-27 13:35 | disposition home or self-care (01) ==
LOC: HO.HOS 12:48
PROVIDERS: PCP Internal Medicine; Visit Provider Orthopaedic Surgery
DX: G56.01 Carpal tunnel syndrome, right upper limb (principal)
CPT/HCPCS: 99024

== ENCOUNTER → 2025-01-27 12:47 | Outpatient (BNVA) | payer OTHER, SELFPAY | PROVIDERS: PCP Internal Medicine; Visit Provider Orthopaedic Surgery | DX: G56.03 Carpal tunnel syndrome, bilateral upper limbs (principal); Z98.890 Other specified postprocedural states | CPT/HCPCS: 99212 ==